=== PATIENT | female | born 1930 | race Caucasian/White ===

== ENCOUNTER 2016-06-27 13:37 | Inpatient (IN) | payer MEDICARE, OTHER ==
[~2016-06-27] VITALS: Ht 154.9 cm; Wt 45.8 kg
[2016-06-27] VITALS (31 sets, daily range): BP systolic 66–147; BP diastolic 32–135
[~2016-06-27 13:37] MED LIST: ACETAMINOP650 MG/20. PO; AMBIEN10 MG PO; AMOXIL250 MG/5 M GT; ASPIR 8181 MG ORAL; ASPIRIN325 M1 PO; ATORVASTATIN CA20 MG ORAL; BENAZEPRIL HCL10 MG PO; BENAZEPRIL HCL40 MG ORAL; COLACE100 MG PO; COREG12.5 MG ORAL; CRESTOR10 M1 ORAL; CRESTOR10 MG PO; LEVOTHYROXINE125 MCG ORAL; LEVOTHYROXINE150 MCG ORAL; LIDODERM700 MG TP; LIPITOR20 MG ORAL; LOTENSIN20 MG ORAL; MEGACE ORA400 MG/10 ORAL; MEGACE ORA400 MG/10 PO; METOPROLOL TART25 MG ORAL; MILK OF MA400 MG/5 M PO; MULTIVITAMINS1 EAC2 ORAL; PLAVIX75 MG PO; Piperacillin/Tazobactam 3.375 GM in NS 110 ML IVPB ONE; RANITIDINE HCL150 MG PO; REMERON15 M1 ORAL; SENOKOT1 TAB PO; SYNTHROID112 MCG PO; SYNTHROID88 MCG PO; TOPROL XL25 MG PO; TRAMADOL HCL50 MG PO; TYLENOL650 MG/20. RECTAL; Vancomycin 1 GM in NS 275 ML IVPB ONE; ZANTAC150 MG ORAL; ZOFRAN4 M1 ORAL; Zosyn 3.375gm inj ONE; [UNRECOGNIZED DRUG - REMARK]; aspirin; synthroid
[2016-06-27] MEDS ORDERED: Levophed 4mg/4mL Inj IV ONE ×2 (13:56→15:50)
[2016-06-27] MEDS ORDERED: Vancomycin 1gm inj IVPB ONE (14:12)
[2016-06-27] MEDS ORDERED: Lidocaine 1% MPF 10mg/ml 5ml ONE (14:20)
[2016-06-27 14:35] LABS: MEAN CORPUSCULAR HEMOGLOBIN 29.8 PG (27.0-31.0); MEAN CORPUSCULAR HGB CONC 31.4 G/DL (32.0-36.0); MEAN CORPUSCULAR VOLUME 95 FL (80-99); MEAN PLATELET VOLUME 10.6 FL (6.5-10.1); PLATELET COUNT 266 K/UL (150-450); RED BLOOD COUNT 4.57 M/UL (4.20-5.40); RED CELL DISTRIBUTION WIDTH 15.2 % (11.6-14.8)
[2016-06-27 14:36] LABS: WHITE BLOOD COUNT 22.6 K/UL (4.8-10.8)
--- NOTE | 2016-06-27 14:39 | Emergency Room Report ---
History of Present Illness General Chief Complaint: Dyspnea/Respdistress Source: Patient, EMS Present Illness HPI 85 YOF BIBEMS from SNF for hypoxia and hypotension. Patient aphasic at baseline. No diff in mental status as per SNF. EMS unable to get IV access. Moderate improvement with NRB O2. Patient has paperwork that states DNI but would allow cardiopulmonary resuscitation including CPR. No other info from EMS. No family member to provide additional info at this time. Allergies: Coded Allergies: No Known Allergies (Unverified , 04/18/12) Patient History Limited by: medical condition Past Medical History: unable to obtain Past Surgical History: unable to obtain Pertinent Family History: unable to obtain Now: No Immunizations: UTD Reviewed Nursing Documentation: PSxH: Agreed Nursing Documentation-PMH Hx Cardiac Problems: Yes - SD CHF CAD Hx Hypertension: Yes Hx Cancer: No Hx Gastrointestinal Problems: No Hx Neurological Problems: Yes Hx Dementia: Yes Hx Weakness: Yes Review of Systems All Other Systems: limited - Patient nonverbal at baseline Physical Exam Vital Signs Date Time Temp Pulse Resp B/P Pulse Ox O2 Delivery O2 Flow Rate FiO2 06/27/16 13:21 80 24 70/50 85 Non-Rebreather 15.0 Sp02 EP Interpretation: abnormal General Appearance: severe distress, lethargic Head: normocephalic, atraumatic Eyes: bilateral eye EOMI, bilateral eye PERRL ENT: normal ENT inspection, TMs + canals normal, uvula midline Neck: normal inspection, full range of motion, supple, no meningismus, no bony tend Respiratory: normal inspection, lungs clear, normal breath sounds, no rhonchi, no respiratory distress, no retraction, no accessory muscle use, no wheezing Cardiovascular #1: regular rate, rhythm, no edema, tachycardia Gastrointestinal: normal inspection, normal bowel sounds, non tender, soft, no guarding, no hernia Genitourinary: no CVA tenderness Musculoskeletal: normal inspection, back normal, normal range of motion, Rodrigo' s Sign negative Neurologic: normal inspection, alert, responsive, creative arts therapist III-XII nml as tested, other - Bilateral contracted upper/lower extremities Skin: no rash Procedures Critical Care Time Critical Care Time Sepsis 45 minutes Care for 85 YO F with hypoxemia, hypotension. Hypothermia Patient is DNI but NOT DNR Patient not providing history. DDx includes sepsis, PNA, CHF Care included sepsis order set for labs, 30cc/kg fluid resuscitation, initiation of IV antibiotics, tylenol PRN fever, rewarming Care included administration of vasopressors started to support failing circulatory system; includes frequent re-exam, interpretation of lab studies and consultation with hospitalist/configuration developer. 45 minutes of critical care time was spent with this patient not including time spent performing separately reportable procedures. Central Line Central Line : Consent: Emergent Central Line Lumen: triple Maximal Sterile Barrier Tech: yes cap, yes mask, yes sterile gown, yes sterile gloves, yes large sterile sheet, yes hand hygiene, yes chlorhexidine prep No Max Barrier Tech Because: emergency insertion Central Line Postion: internal jugular (R) Anesthesia: Lidocaine Complications: none Central Line Post Position: sutured, good blood return, position confirmed w / CXR Attempts: One Patient Tolerated: Well Complications: None Medical Decision Making Medicare Attestation I Paramjit Linton MD hereby attest that the medical record entry for date of service, 05/18/16 accurately reflects signatures/notations that I made in my capacity as MD when I treated/diagnosed the above listed Medicare beneficiary. I attest that this information is true, accurate and complete to the best of my knowledge. I understand that any falsification, omission, or concealment of material fact may subject me to administrative, civil, or criminal liability. This patient warrants hospital admission for extreme of age and has a condition that cannot be treated as outpatient. Diagnostic Impression: Primary Impression: Respiratory distress Additional Impressions: Sepsis Qualified Codes: A41.9 - Sepsis, unspecified organism Hypokalemia Hypocalcemia MARCELLE (acute kidney injury) Hypotension Qualified Codes: I95.9 - Hypotension, unspecified Respiratory failure Qualified Codes: J96.90 - Respiratory failure, unspecified, unspecified whether with hypoxia or hypercapnia Hypothermia Qualified Codes: T68.XXXA - Hypothermia, initial encounter ER Course 85 YO F with hypoxemia, hypotension. Tachycardia. Hypothermic. Labs: Leuks very elevated. Lactate 3.1. K 2.7. Creat 2.6. Ca 5.4 Troponin 0. - Respiratory failure. Patient is DNI. Placed on high FIO2 bipap - Presumed sepsis. Empiric Abx, IVF given - Hypothermia: Patient being rewarmed in ED - HypoK and HypoCa repleted - Hypotension: No response to IVF. Central line placed. Patient now on levophed and Dopamine pressors to maintain MAP. - Endorsed to Dr Corbett at 305pm EKG Diagnostic Results Rate: normal Rhythm: NSR ST Segments: no acute changes ASA given to the pt in ED: No Rhythm Strip Diag. Results EP Interpretation: yes Rate: 88. Rhythm: NSR, no PVC's, no ectopy Chest X-Ray Diagnostic Results EP Interpretation: Yes Findings: no consolidation, no effusion, no pneumothorax, no acute cardiopulmonary disease, other - Central venous line is in place in right atrium Number of Views: 1 Last Vital Signs Date Time Temp Pulse Resp B/P Pulse Ox O2 Delivery O2 Flow Rate FiO2 06/27/16 13:21 80 24 70/50 85 Non-Rebreather 15.0 Status: improved Disposition: ADMITTED INPATIENT Condition: Critical Referrals: NON PHYSICIAN (PCP) PARAMJIT LINTON M.D. Jun 27, 2016 14:39
[2016-06-27 14:46] LABS: TROPONIN I < 0.30 ng/mL (<=0.30)
[2016-06-27 14:48] LABS: ALANINE AMINOTRANSFERASE 5 U/L (3-33); ALBUMIN/GLOBULIN RATIO 0.5 (1.0-2.7); ANION GAP 21 (5-15); ASPARTATE AMINO TRANSFERASE 10 U/L (5-40); CHLORIDE 128 mEQ/L (98-107); CREATININE 2.6 mg/dL (0.5-0.9); HEMOLYSIS 20; SODIUM 157 mEQ/L (135-145); TOTAL PROTEIN 4.7 g/dL (6.6-8.7)
[2016-06-27 14:58] LABS: POTASSIUM 2.7 mEQ/L (3.4-4.9)
[2016-06-27 14:59] LABS: CALCIUM 5.4 mg/dL (8.6-10.2); CARBON DIOXIDE 8 mEQ/L (20-30); CKMB 4.7 ng/mL (< 3.8)
[2016-06-27 15:03] LABS: REFLEX LACTIC ACID YES OR NO YES
[2016-06-27] MEDS ORDERED: DOPamine 400mg/250ml 250 ML IV ONE (15:05)
[2016-06-27 15:15] LABS: BAND NEUTROPHILS % (MANUAL) 3 % (0-8); BASOPHILS % (MANUAL) 0 % (0-2); EOSINOPHILS % (MANUAL) 0 % (0-3); LYMPHOCYTES % (MANUAL) 24 % (20-45); NEUTROPHILS % (MANUAL) 71 % (45-75); PLATELET ESTIMATE ADEQUATE; PLATELET MORPHOLOGY NORMAL; TOTAL CELLS COUNTED 100
[2016-06-27] MEDS ORDERED: Calcium Gluconate 10% 2 GM in NS 110 ML IVPB ONE (15:15)
[2016-06-27] MEDS ORDERED: DOPamine 400mg/250ml 250 ML IV SCH ×2 (15:15→19:00)
[2016-06-27 15:25] LABS: APPEARANCE,URINE TURBID; KETONES,URINE NEGATIVE (NEGATIVE); LEUKOCYTE ESTERASE ,URINE 3+ (NEGATIVE); NITRITE,URINE POSITIVE (NEGATIVE); PH,URINE 6 (4.5-8.0); PROTEIN,URINE 4+ (NEGATIVE); UROBILINOGEN,URINE NORMAL MG/DL (0.0-1.0)
[2016-06-27 15:27] LABS: RBC,URINE TNTC /HPF (0 - 2); WBC,URINE 15-20 /HPF (0 - 2)
[2016-06-27 15:28] LABS: BACTERIA,URINE MODERATE /HPF; SQUAMOUS EPITHELIAL CELL,UR FEW /LPF (NONE/OCC)
[2016-06-27] MEDS ORDERED: Calcium Gluconate 1gm/10ml vial ONE ×2 (15:28→15:29)
[2016-06-27] MEDS ORDERED: NORCO 5-325 TA1 EAC1 ORAL (16:10)
[2016-06-27] MEDS ORDERED: CRANBERRY450 M4 PO (16:10)
[2016-06-27] MEDS ORDERED: MULTI-DELYN237 ML ORAL (16:10)
[2016-06-27] MEDS ORDERED: VITAMIN D1000 UNI1 ORAL (16:11)
[2016-06-27] MEDS ORDERED: Acetaminophen 650mg/20.3ml NG PRN (18:45)
[2016-06-27] MEDS ORDERED: Norco 5mg/325mg tab ORAL PRN (18:45)
[2016-06-27] MEDS ORDERED: Atorvastatin 20mg tab ORAL SCH (21:00)
[2016-06-27] MEDS ORDERED: Pantoprazole Inj IVP SCH (21:00)
[2016-06-27] MEDS: Piperacillin/Tazobactam 3.375 GM in D5W 110 ML IVPB SCH (21:09)
[2016-06-27] MEDS: Heparin 5000 units/ml inj SUBQ SCH (21:11)
[2016-06-27 22:37] LABS: ABG ALLEN TEST POSITIVE; ABG BASE EXCESS -12.4; ABG PCO2 18.4 mmHg (35.0-45.0)
[2016-06-28] VITALS (87 sets, daily range): BP systolic 68–138; BP diastolic 24–95
[2016-06-28] MEDS: 1/2NS w/KCl 20mEq 1000ml 1,000 ML IV SCH ×2 (00:32→06:42)
[2016-06-28 05:55] LABS: MEAN CORPUSCULAR HEMOGLOBIN 29.4 PG (27.0-31.0); MEAN CORPUSCULAR HGB CONC 31.5 G/DL (32.0-36.0); MEAN CORPUSCULAR VOLUME 94 FL (80-99); MEAN PLATELET VOLUME 11.1 FL (6.5-10.1); PLATELET COUNT 245 K/UL (150-450); RED BLOOD COUNT 4.42 M/UL (4.20-5.40)
[2016-06-28] MEDS: Levothyroxine 125mcg tab ORAL SCH ×2 (06:22→09:50)
[2016-06-28 06:23] LABS: WHITE BLOOD COUNT 32.4 K/UL (4.8-10.8)
[2016-06-28 07:07] LABS: TROPONIN I < 0.30 ng/mL (<=0.30)
[2016-06-28 07:10] LABS: ALANINE AMINOTRANSFERASE 14 U/L (3-33); ALBUMIN/GLOBULIN RATIO 0.7 (1.0-2.7); ANION GAP 25 (5-15); ASPARTATE AMINO TRANSFERASE 26 U/L (5-40); CALCIUM 9.8 mg/dL (8.6-10.2); CARBON DIOXIDE 12 mEQ/L (20-30); CHLORIDE 111 mEQ/L (98-107); CREATININE 4.6 mg/dL (0.5-0.9); HEMOLYSIS 3; POTASSIUM 5.2 mEQ/L (3.4-4.9); SODIUM 148 mEQ/L (135-145); THYROID STIMULATING HORMONE 0.095 uIU/mL (0.300-4.500); TOTAL PROTEIN 7.6 g/dL (6.6-8.7)
[2016-06-28 07:14] LABS: REFLEX LACTIC ACID YES OR NO YES
[2016-06-28] MEDS: DOPamine 400mg/250ml 250 ML IV SCH (07:50)
[2016-06-28] MEDS: Piperacillin/Tazobactam 3.375 GM in D5W 110 ML IVPB SCH (08:47)
[2016-06-28] MEDS ORDERED: Vancomycin 1gm/D5W 250ml IVPB ONE ×2 (09:00)
[2016-06-28] MEDS ORDERED: Megace 400mg/10ml Susp NG SCH (09:00)
[2016-06-28 09:17] LABS: ANISOCYTOSIS 1+; BAND NEUTROPHILS % (MANUAL) 9 % (0-8); BASOPHILS % (MANUAL) 0 % (0-2); EOSINOPHILS % (MANUAL) 0 % (0-3); HYPOCHROMASIA 1+; LYMPHOCYTES % (MANUAL) 25 % (20-45); NEUTROPHILS % (MANUAL) 60 % (45-75); PLATELET ESTIMATE ADEQUATE; PLATELET MORPHOLOGY NORMAL; TOTAL CELLS COUNTED 100
[2016-06-28] MEDS ORDERED: D5 1/2NS 1,000 ML IV SCH (09:45)
[2016-06-28] MEDS: Multivitamin 5ml Liquid ORAL SCH (09:50)
[2016-06-28] MEDS: Aspirin Baby 81mg ORAL SCH (09:50)
[2016-06-28] MEDS: Pantoprazole Inj IVP SCH (09:50)
[2016-06-28] MEDS: Heparin 5000 units/ml inj SUBQ SCH ×2 (09:55→20:48)
--- NOTE | 2016-06-28 10:15 | Diagnostic Imaging Report ---
Indications: Chest pain Technique: Portable AP chest Findings: Comparison: 07/03/2015 Central venous catheter has been placed via right internal jugular vein, tip at level of SVC/right atrial junction. No pneumothorax, apical pleural cap, or mediastinal widening. Defibrillator patch overlies cardiac silhouette, limiting evaluation. Heart size, pulmonary vasculature remain within normal limits. Lungs, pleura remain grossly clear. Aortic arch calcification, diffuse osteopenia again noted. IMPRESSION: No evidence of acute cardiopulmonary disease, limited as described Central venous catheter placement, in good position; no evidence of acute complication Stable chronic changes as described
[2016-06-28] MEDS ORDERED: Sodium Bicarbonate 50 ML in D5 1/2NS 1,000 ML IV SCH (11:00)
[2016-06-28 13:28] LABS: ABG ALLEN TEST POSITIVE; ABG BASE EXCESS -13.4
[2016-06-28 13:49] LABS: CREATININE, RANDOM URINE 62.5 mg/dL
[2016-06-28] MEDS: Sodium Bicarbonate 50 ML in D5 1/2NS 1,000 ML IV SCH ×3 (13:54→21:20)
[2016-06-28] MEDS ORDERED: Ertapenem 1 GM in NS 110 ML IVPB SCH (18:00)
--- NOTE | 2016-06-28 19:47 | Cardiology Report ---
APPROVED REPORT EKG Measurement Heart [id number] [place] [id number] Normal sinus rhythm Left axis deviation Low voltage QRS Abnormal ECG
--- NOTE | 2016-06-28 21:37 | Consultation ---
DATE OF CONSULTATION: 06/27/2016 CARDIOLOGY CONSULTATION CONSULTING PHYSICIAN: Yohan Corbett M.D. REQUESTING PHYSICIAN: Dimitri Gore M.D. REASON FOR CONSULTATION: Hypotension. HISTORY OF PRESENT ILLNESS: This is an 85-year-old white female. She [facility]. She has a history of ischemic heart disease and prior myocardial infarction with systolic dysfunction. The patient became increasingly withdrawn, lethargic, aphasic, and hypotensive in the senior living, prompting 911 transfer to this emergency room. She was notably hypoxic. Central venous access was ultimately obtained. Hypotension was treated with fluid resuscitation initially, but did not improve and pressors were initiated. PAST MEDICAL HISTORY: 1. Coronary artery disease. 2. History of myocardial infarction. 3. History of congestive heart failure. 4. Hypertension. 5. Hypothyroidism. 6. Hard of hearing. 7. Degenerative disk disease with compression fractures. 8. Osteoporosis. 9. Osteoarthritis. 10. Urinary incontinence. 11. Hyperlipidemia. ALLERGIES: None known. MEDICATIONS: Prior to admission, reviewed and reconciled. SOCIAL HISTORY: Negative for smoking, alcohol, or substance abuse. FAMILY HISTORY: Notable for hypothyroidism. REVIEW OF SYSTEMS: No fevers or chills. She did receive a flu vaccination this year. 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 She is on thyroid replacement. There is no history of kidney disorder. There is no history of diabetes. She has been on anti-lipid drugs. She had a myocardial infarction four to five years ago with a stent placed to the LAD. She does have significant left ventricular systolic dysfunction with ejection fraction by recent echocardiogram at approximately 30%. There is no history of cardiac arrhythmias. There is no history of asthma or blood clots in the legs. She is extremely hard of hearing. PHYSICAL EXAMINATION: VITAL SIGNS: Blood pressure is 82/40, heart rate 80, respiratory rate 24, the patient is afebrile, and oxygen saturation on a non-rebreather mask with 85%. Temperature is 95.0 degrees. CHEST: Bilateral breath sounds with rhonchi. HEENT: Dry mucous membranes. Conjunctivae are pink. Sclerae are anicteric. CARDIAC: Regular. Normal S1 and S2 with a fourth heart sound. Triple lumen catheter site is noted in the right IJ. No bleeding there. EXTREMITIES: Revealed decreased capillary refill and no edema. ABDOMEN: Soft and nontender. LABORATORY AND DIAGNOSTIC DATA: Lactate is 3.1. EKG sinus rhythm with septal infarction of indeterminate age. Chest x-ray, no acute process. Chemistry, sodium is 157, potassium 3.7, chloride 128, bicarbonate 8, BUN 55, creatinine 2.6, and calcium 5.4. Albumin is 1.7. Troponin is negative. White count is 22.6 and hemoglobin 13.6. IMPRESSION: 1. Systemic inflammatory response syndrome. 2. Severe sepsis with shock. 3. Probable urinary tract infection. 4. Possible aspiration pneumonia. 5. Hypothermia. 6. Severe dehydration. 7. Hypernatremia. 8. Hypovolemia. 9. Hypokalemia. 10. Acute renal failure. 11. Lactic acidosis. 12. Metabolic acidosis. 13. Severe protein-calorie malnutrition. 14. Ischemic cardiomyopathy with history of myocardial infarction and coronary stent. 15. Chronic systolic congestive heart failure. 16. History of hypothyroidism. PLAN: 1. ICU monitoring. 2. BiPAP support. 3. Volume resuscitation with hypotonic fluids. 4. Check metabolic profile. 5. Follow up lactic acid levels and chemistry panel. 6. Replace potassium. 7. Check magnesium. 8. Hold statin drug. 9. Broad spectrum antibiotics. 10. Deep venous thrombosis prophylaxis. 11. Taper off pressors as clinical condition permits. 12. Condition is critical and prognosis is guarded. Charleen Osborn JOB#: [id number] CC:
[2016-06-29] VITALS (94 sets, daily range): BP systolic 59–165; BP diastolic 30–95
--- NOTE | 2016-06-29 00:08 | History and Physical Report ---
DATE OF ADMISSION: 06/27/2016 CHIEF COMPLAINT: Septic shock, acute renal failure, respiratory failure. HISTORY OF PRESENT ILLNESS: The patient is an 85-year-old female. She has a history of ischemic cardiomyopathy, hypothyroidism, dementia. She presented from care home facility with complaints of shortness of breath. On evaluation in the emergency room, the patient was hypotensive. She was placed on pressors. She is short of breath and placed on BiPAP. She had acute renal failure. She had evidence of pneumonia as well as urine infection. The patient has been started on broad-spectrum IV antibiotics. She has been pancultured and is now admitted for further evaluation and care. She is a DNR. She currently is unable to provide any history as she is confused. PAST MEDICAL HISTORY: As above. PAST SURGICAL HISTORY: None. CURRENT MEDICATIONS: Reconciled and reviewed. ALLERGIES: None. FAMILY HISTORY: None. SOCIAL HISTORY: Negative for tobacco, ethanol, or drugs. REVIEW OF SYSTEMS: Unobtainable as the patient is confused. PHYSICAL EXAMINATION: VITAL SIGNS: Temperature 97.9, blood pressure 105/78, pulse 117, respirations 20. GENERAL: The patient is a chronically ill-appearing female. She is arousable on BiPAP. NECK: Supple. HEART: Tachycardic. LUNGS: Clear anteriorly. ABDOMEN: Soft, nontender, and nondistended. EXTREMITIES: Without clubbing cyanosis, or edema. LABORATORY DATA: White count 00107, hemoglobin 13, hematocrit 43, platelets 266,000. ABG showed a pH of 7.367, pCO2 pO2 552, bicarb 10, O2 saturation 99%. Sodium 157, potassium 2.7, chloride 128, bicarbonate 8, BUN 55, and creatinine was 2.6. Troponin was negative. ASSESSMENT: This is an unfortunate female admitted with respiratory failure, sepsis, shock, and acute renal failure. 1. Shock. 2. Sepsis. 3. Urinary tract infection. 4. Respiratory failure. 5. Pneumonia. 6. Acute renal failure. 7. Hypothyroidism. 8. Ischemic cardiomyopathy. PLAN: 1. Continue pressors. 2. Aggressive fluid resuscitation with bicarb. 3. Check renal ultrasound. 4. Followup cultures. 5. Broad-spectrum IV antibiotic therapy. 6. Cardiology and Infectious Diseases consultation will be obtained. 7. The patient's status currently critical and guarded. She is DNR. Dimitri Gore M.D. DR: Belinda JOB#: [id number] CC:
--- NOTE | 2016-06-29 01:07 | Consultation ---
DATE OF CONSULTATION: 06/28/2016 INFECTIOUS DISEASE CONSULTATION This consult is for coverage of Dr. Torres. PRIMARY ATTENDING PHYSICIAN: Dimitri Gore M.D. REASON FOR CONSULT: Sepsis, septic shock, and UTI. HISTORY OF PRESENT ILLNESS: The patient is an 85-year-old white female admitted yesterday from a [facility] facility. The patient developed hypoxemia, hypertension, and hypothermia in this facility. There was no IV access. After admission, the patient had central line placement. She was found to have leukocytosis, acute renal failure, and was in shock. The patient is started on Levophed. Currently, she is in ICU, nonresponding. She was put on BiPAP. PAST MEDICAL HISTORY: Significant for hypertension, dementia, hypothyroidism, coronary artery disease, history of [place], systolic CHF, osteoporosis, and anemia. MEDICATIONS: Dopamine, aspirin, multivitamin, Protonix, sodium bicarbonate, levothyroxine, Zosyn, dose of vancomycin, heparin, norepinephrine, and [place]. ALLERGIES: No known drug allergy. SOCIAL HISTORY: alf resident. The patient's code status is DNI. No history of alcohol, drug abuse, or smoking. REVIEW OF SYSTEMS: Unobtainable. The patient is unresponsive. PHYSICAL EXAMINATION: VITAL SIGNS: Pulse 85 and blood pressure 102/75. HEAD AND NECK: The patient is on BiPAP. She has pink conjunctiva. HEART: Normal rate. She has right subclavian central line. LUNGS: The patient is on BiPAP, decreased expansion and sound. ABDOMEN: Soft. EXTREMITIES: She has no edema. LABORATORY AND DIAGNOSTIC DATA: WBC 32.4, hemoglobin 13, hematocrit 41.4, and platelets 245,000. Sodium 148, potassium 4.2, chloride 111, bicarbonate 25, BUN 84, creatinine 4.6, and magnesium 3.7. TSH is low 0.095. Urine culture grows gram-negative rods. Chest x-ray was negative. IMPRESSION: 1. Sepsis with septic shock. 2. Urinary tract infection. 3. Hypoxic respiratory failure. 4. Acute renal failure. 5. Hyperkalemia. 6. Hypothyroidism. 7. Advanced dementia. 8. Systolic congestive heart failure by history. 9. Osteoporosis. RECOMMENDATION: We will continue with vancomycin and Zosyn. We will follow up the cultures. At the end of my exam, I thank Dr. Gore for involving me in the care of this patient. Jax Walsh M.D. DR: Demarco JOB#: [id number] CC: SAMIA
[2016-06-29] MEDS: Sodium Bicarbonate 50 ML in D5 1/2NS 1,000 ML IV SCH ×3 (01:24→09:47)
--- NOTE | 2016-06-29 01:37 | Progress Note ---
DATE: 06/28/2016 CARDIOLOGY PROGRESS NOTE SUBJECTIVE: The patient remains in the intensive care unit. Condition remains critical with guarded prognosis. The case was discussed with her sister Eh. OBJECTIVE: GENERAL: The patient is alert, but poorly responsive. She is very hard of hearing. She remains on pressor support with dopamine and Levophed. VITAL SIGNS: Blood pressure 104/55, heart rate 84, respiratory rate 19. She is on BiPAP support and temperature is 99.1. HEENT: Temporal wasting. Pale conjunctivae. Dry mucous membranes. NECK: Supple. LUNGS: With coarse breath sounds. CARDIAC: Regular rhythm and rate. Normal S1 and S2 with a 1/6 systolic apical murmur. ABDOMEN: Soft and nontender. EXTREMITIES: Revealed no edema. SKIN: Skin changes as pictured in the chart. LABORATORY DATA: Sodium 148, potassium 5.2, bicarbonate 12, BUN 84, AND creatinine 4.6. Magnesium 2.7. Lactic acid has decreased to 1.2. Troponin negative. Albumin 3.2. White count 32.4 and hemoglobin 13. ABG, 7.37, 17, and 175. IMPRESSION: 1. Systemic inflammatory response syndrome. 2. Sepsis with shock. 3. Urinary tract infection. 4. Lactic acidosis, resolving. 5. Severe leukocytosis. 6. Ischemic cardiomyopathy. 7. Acute renal failure. 8. Dehydration. 9. Hypernatremia. 10. Hyperchloremia. 11. Hypokalemia, recovered. PLAN: Hypotonic hydration. Broad-spectrum antibiotics. Pending final cultures. DVT and stress ulcer prophylaxis. Taper off pressors. Do Not Intubate. However, sister wants other interventions to remain at current intensity of care. Yohan Corbett M.D. DR: PARKER JOB#: [id number] CC:
--- NOTE | 2016-06-29 02:47 | Consultation ---
DATE OF CONSULTATION: 06/28/2016 PULMONARY CONSULTATION: CONSULTING PHYSICIAN: Fabiano Parra M.D. REFERRING PHYSICIAN: Dimitri Gore M.D. REASON FOR CONSULTATION: Respiratory failure, BiPAP management. HISTORY: This is an 85-year-old female, brought in by ambulance from skilled facility for hypoxemia and hypotension. The patient unable to give much in the way of history. The patient is seen in the emergency room, was placed on non-rebreather. The patient current is a do not intubate; however, the patient was doing poorly and requiring BiPAP. She was also noted to have significant metabolic acidosis and was not compensating adequately. The patient was admitted with diagnosis of sepsis. She was started on intravenous antibiotics and BiPAP management. I was called to assist and evaluate further. The patient's care discussed and reviewed and the ICU care reviewed as well in detail. The patient's past medical history is notable for [place], congestive heart failure, CAD, history of asthma or chronic obstructive pulmonary disease. She has a history of dementia, diffuse weakness, and possible prior history of stroke. The patient's medications reviewed in detail. ALLERGIES: Reviewed. REVIEW OF SYSTEMS: Otherwise reviewed. PHYSICAL EXAMINATION: GENERAL: A well-developed female, appears to be chronically ill. Very labile. VITAL SIGNS: Blood pressure 116/75, 100% sat on BiPAP with 30% FiO2, pulse rate 95, respiratory rate 16, and temperature 97.9. HEENT: Fairly negative. Pupils are sluggish. BiPAP in place. NECK: Supple. No jugular venous distention. LUNGS: With coarse breath sounds. Moderate air entry. CARDIAC: S1 and S2. Intermittently tachycardic without murmurs, rubs, or gallops. ABDOMEN: Soft, nontender, and nondistended. EXTREMITIES: No cyanosis or clubbing. No edema. NEUROLOGICAL: Grossly nonfocal. The patient, however, is very contracted. Difficult to fully assess. The patient is withdrawn at this time. LABORATORY DATA: ABG shows pH of 7.36, pCO2 18, pO2 is 552, bicarbonate was 10. Chemistry this morning sodium 148, potassium 5.2, BUN 84, creatinine 4.6, lactic acid 3.1. The patient's CBC with a white cell count of 32, hemoglobin 13, hematocrit 41, and platelets of 245,000. The prior laboratories showed bicarbonate was only 8, now improved to 12. The x-ray showed no clear infiltrate overall. IMPRESSION: Respiratory failure, mostly due to metabolic acidosis, presumed sepsis, hypothermia, hypotension, history of dementia, history congestive heart failure, history of coronary artery disease, history of hypertension, possible acute on chronic renal failure, significant lactic acidemia, protein-calorie malnutrition, and profound leukocytosis. RECOMMENDATION: At present agree with management of BiPAP for now. Follow up bicarbonate level, aggressive intravenous hydration pressors as needed. IV antibiotics and follow cultures, DVT prophylaxis, and monitor clinically, nutritional support, follow with caution. We will follow clinically for further change in intervention and ongoing recommendations. The patient is guarded and critical, requiring acute care. We will order arterial blood gases and chest x-ray for the a.m. and subsequent weaning, but likely will occur only when bicarbonate improves. Fabiano Parra M.D. DR: LIZETTE JOB#: [id number] CC:
--- NOTE | 2016-06-29 04:58 | Consultation ---
DATE OF CONSULTATION: 06/28/2016 NEPHROLOGY CONSULTATION: REFERRING PHYSICIAN: Dimitri Gore M.D. REASON FOR CONSULTATION: Acute kidney injury. HISTORY OF PRESENT ILLNESS: The patient is an 85-year-old lady, a resident of an [facility], who presents with respiratory distress and acute renal failure. She had a BUN and creatinine done recently in the [facility] with a BUN of 27 and creatinine 0.79 on 02/03/2016. The patient cannot give any history. She has severe dementia and aphasia. There is a history of coronary disease, prior myocardial infarction, CHF with systolic and diastolic dysfunction, osteoporosis, osteoarthritis, hypothyroidism, compression fractures, chronic anemia, and protein calorie malnutrition. HABITS: Apparently, she is a nonsmoker and nondrinker. REVIEW OF SYSTEMS: The patient is unable. MEDICATIONS: From the [facility] as follows, Tylenol, aspirin, atorvastatin, benazepril, ranitidine, cranberry, Prostat, multivitamins with minerals, Megace, carvedilol, mirtazapine, vitamin D, and levothyroxine. PHYSICAL EXAMINATION: GENERAL: The patient is seen in the intensive care unit. She is on BiPAP. VITAL SIGNS: Temperature 99 degrees, pulse 92, respirations 30, blood pressure 105/45. HEENT: She has an oxygen mask and could not examine well. She is in a position. LUNGS: Distant breath sounds. HEART: Regular rhythm and tachycardic. ABDOMEN: Soft. Without organomegaly. EXTREMITIES: She is in position with contractures of the knees. No edema. There is some severe muscle wasting. NEUROLOGIC: The patient is obtunded. LABORATORY DATA: Pertinent laboratories on 06/27/2015, BUN 55, creatinine 2.6, sodium 157, potassium 2.7, chloride 128, and CO2 is 8 with a glucose of 61. Lactic acid of 3.1. Troponin less than 0.30. Albumin 1.7. Today BUN is elevated at 84, creatinine 4.6, sodium 148, potassium is 5.2. Repeat troponin normal. Lactic acid down to 1.2. TSH is low. Urine shows 15 to 20 white cells per high-power field, too numerous to count red cells, and 4+ protein. Chest x-ray is negative. IMPRESSION: The patient presents with sepsis, dehydration, acute renal failure. Electrolyte abnormalities. Her condition is critical. At this point, there is likely a large prerenal component. We will give her large volumes of IV fluids and observe her response. She likely has pyelonephritis and urosepsis and needs broad-spectrum antibiotics. Her underlying malnutrition makes her a poor candidate for rehabilitation and her condition is critical. Intensive care unit orders have been reviewed and updated and intravenous fluids adjusted. Thank you so much. Brian Sidhu M.D. DR: Felisha JOB#: [id number] CC:
[2016-06-29 06:56] LABS: ALANINE AMINOTRANSFERASE 11 U/L (3-33); ALBUMIN/GLOBULIN RATIO 0.6 (1.0-2.7); ANION GAP 18 (5-15); ASPARTATE AMINO TRANSFERASE 23 U/L (5-40); CARBON DIOXIDE 19 mEQ/L (20-30); CHLORIDE 110 mEQ/L (98-107); CREATININE 2.7 mg/dL (0.5-0.9); HEMOLYSIS 5; POTASSIUM 3.3 mEQ/L (3.4-4.9); SODIUM 147 mEQ/L (135-145); TOTAL PROTEIN 5.8 g/dL (6.6-8.7)
[2016-06-29 07:20] LABS: URIC ACID 7.5 mg/dL (3.0-7.5)
--- NOTE | 2016-06-29 09:08 | Critical Care Progress Note ---
Assessment/Plan Assessment/Plan IMPRESSION: Respiratory failure, mostly due to metabolic acidosis, presumed sepsis, hypothermia, hypotension, history of dementia, history congestive heart failure, history of coronary artery disease, history of hypertension, possible acute on chronic renal failure, significant lactic acidemia, protein-calorie malnutrition, and profound leukocytosis. PLAN BIPAP PRN still needed concern as unable to maintain higher RR for low bicarb levels IV antibiotics check cultures maintain blood pressure support clinically ICU care needed discussed with all close follow up on all parameters medications/laboratory data/nursing notes/ICU care reviewed in detail note reviewed and edited care discussed with RN and RT ICU time spent 35 minutes Critical Care - Subjective Interval Events: still significantly acidotic all events reviewed and discussed in detail Condition: critical EKG Rhythm: Sinus Rhythm Residuals: minimal Tube Feeding Tolerated: yes I&O: Intake and Output 06/28/16 06/29/16 19:00 07:00 Intake Total 3084.72 ml 3014.36 ml Output Total 561 ml 1210 ml Balance 2523.72 ml 1804.36 ml Intake Oral 40 ml IV Total 3044.72 ml 3014.36 ml Output Urine Total 560 ml 1210 ml Stool Total 1 ml # Bowel Movements 1 4 Critical Care - Objective CXR: negative ET-Tube: 8.0 ET Position: 24 Last 24 Hour Vital Signs Date Time Temp Pulse Resp B/P Pulse Ox O2 Delivery O2 Flow Rate FiO2 06/29/16 07:15 80 23 100 Full Face 30 06/29/16 07:00 91 20 93/36 100 Bi-pap 30 06/29/16 06:45 90 20 90/36 100 Bi-pap 30 06/29/16 06:34 80 06/29/16 06:30 88 20 93/39 100 Bi-pap 30 06/29/16 06:15 88 20 93/39 100 Bi-pap 30 06/29/16 06:00 80 20 98/39 100 Bi-pap 30 06/29/16 05:45 94 20 94/46 100 Bi-pap 30 06/29/16 05:30 98 20 100/59 100 Bi-pap 30 06/29/16 05:15 98 20 97/59 100 Bi-pap 30 06/29/16 05:00 114 17 71/46 100 Bi-pap 30 06/29/16 04:54 94 18 100 Full Face 30 06/29/16 04:45 96 17 100/72 100 Bi-pap 30 06/29/16 04:30 83 17 108/72 100 Bi-pap 30 06/29/16 04:15 88 15 146/81 100 Bi-pap 30 06/29/16 04:00 97.4 76 16 114/95 100 Bi-pap 30 06/29/16 04:00 30 06/29/16 03:45 86 16 131/86 100 Bi-pap 30 06/29/16 03:30 86 16 113/86 100 Bi-pap 30 06/29/16 03:15 88 16 120/88 100 Bi-pap 30 06/29/16 03:12 88 18 100 Full Face 30 06/29/16 03:00 73 16 130/88 100 Bi-pap 30 06/29/16 02:30 82 16 136/78 100 Bi-pap 30 06/29/16 02:15 84 16 128/83 100 Bi-pap 30 06/29/16 02:00 84 20 140/72 100 Bi-pap 30 06/29/16 01:45 82 20 105/74 100 Bi-pap 30 06/29/16 01:30 82 16 97/83 100 Bi-pap 30 06/29/16 01:15 76 16 124/80 100 Bi-pap 30 06/29/16 01:00 94 16 145/69 100 Bi-pap 30 06/29/16 00:57 72/51 06/29/16 00:50 97 21 100 Full Face 30 06/29/16 00:45 100 16 59/35 100 Bi-pap 30 06/29/16 00:30 80 16 116/50 100 Bi-pap 30 06/29/16 00:15 73 16 118/51 100 Bi-pap 30 06/29/16 00:00 82 06/29/16 00:00 30 06/29/16 00:00 97.2 74 16 116/51 100 Bi-pap 30 06/28/16 23:30 74 16 111/55 100 Bi-pap 30 06/28/16 23:15 94 16 97/60 100 Bi-pap 30 06/28/16 23:00 72 14 102/46 100 Bi-pap 30 06/28/16 22:45 76 14 109/52 100 Bi-pap 30 06/28/16 22:44 69 15 100 Full Face 30 06/28/16 22:30 71 18 72/55 100 Bi-pap 30 06/28/16 22:30 72/55 06/28/16 22:15 75 18 90/63 100 Bi-pap 30 06/28/16 22:00 76 20 91/63 100 Bi-pap 30 06/28/16 22:00 101/56 06/28/16 21:45 95 19 120/75 100 Bi-pap 30 06/28/16 21:30 93 19 123/77 100 Bi-pap 30 06/28/16 21:15 89 20 121/73 100 Bi-pap 30 06/28/16 21:10 94 17 100 Full Face 30 06/28/16 21:00 109/70 06/28/16 21:00 84 22 109/70 100 Bi-pap 30 06/28/16 20:45 88 19 123/65 100 Bi-pap 30 06/28/16 20:30 83 22 118/67 100 Bi-pap 30 06/28/16 20:15 82 23 120/62 100 Bi-pap 30 06/28/16 20:00 30 06/28/16 20:00 82 06/28/16 20:00 124/26 06/28/16 20:00 82 19 124/56 100 Bi-pap 30 06/28/16 19:30 92 22 100 Full Face 30 06/28/16 19:30 97.0 88 15 111/81 97 Bi-pap 30 06/28/16 19:00 90 10 121/64 97 Bi-pap 30 06/28/16 19:00 121/64 06/28/16 18:45 80 16 128/76 100 Bi-pap 30 06/28/16 18:30 88 14 124/75 100 Bi-pap 30 06/28/16 18:15 92 19 107/53 98 Bi-pap 30 06/28/16 18:00 88 14 107/68 98 Bi-pap 30 06/28/16 18:00 102/53 06/28/16 17:45 88 13 102/53 100 Bi-pap 30 06/28/16 17:30 92 17 106/55 100 Bi-pap 30 06/28/16 17:15 84 14 101/52 100 Bi-pap 30 06/28/16 17:00 93 16 99/55 100 Bi-pap 30 06/28/16 17:00 99/55 06/28/16 16:45 75 19 102/40 100 Bi-pap 30 06/28/16 16:38 78 23 100 Facial 30 06/28/16 16:30 70 21 110/54 100 Bi-pap 30 06/28/16 16:15 84 19 104/55 100 Bi-pap 30 06/28/16 16:00 103 26 98/56 100 Bi-pap 30 06/28/16 16:00 30 06/28/16 16:00 93 06/28/16 16:00 99.1 90 19 107/85 100 Bi-pap 30 06/28/16 16:00 107/85 06/28/16 15:59 138/90 06/28/16 15:45 90 18 138/90 100 Bi-pap 30 06/28/16 15:30 91 16 114/86 100 Bi-pap 30 06/28/16 15:29 91 19 100 Facial 30 06/28/16 15:15 91 19 107/77 100 Bi-pap 30 06/28/16 15:00 133/75 06/28/16 15:00 90 17 133/74 100 Bi-pap 30 06/28/16 14:45 84 16 98/54 100 Bi-pap 30 06/28/16 14:30 95 18 128/81 100 Bi-pap 30 06/28/16 14:15 99 18 126/68 100 Bi-pap 30 06/28/16 14:00 83 17 96/64 100 Bi-pap 30 06/28/16 14:00 96/64 06/28/16 13:45 93 20 133/80 100 Bi-pap 30 06/28/16 13:30 92 19 106/52 100 Bi-pap 30 06/28/16 13:15 90 18 100/67 100 Bi-pap 30 06/28/16 13:10 93 21 100 Facial 30 06/28/16 13:00 95 22 112/75 100 Bi-pap 30 06/28/16 13:00 112/79 06/28/16 12:45 90 18 119/57 100 Bi-pap 30 06/28/16 12:30 92 14 94/56 100 Bi-pap 30 06/28/16 12:15 88 16 95/55 100 Bi-pap 30 06/28/16 12:06 85/55 06/28/16 12:00 99.0 92 16 105/45 100 Bi-pap 30 06/28/16 12:00 30 06/28/16 12:00 92 06/28/16 11:45 91 15 85/55 100 Bi-pap 30 06/28/16 11:30 88 14 99/59 100 Bi-pap 30 06/28/16 11:28 106 18 100 Facial 30 06/28/16 11:15 85 18 101/82 100 Bi-pap 30 06/28/16 11:00 130/48 06/28/16 11:00 86 14 130/47 100 Bi-pap 30 06/28/16 10:57 68/40 06/28/16 10:45 105 21 68/40 100 Bi-pap 30 06/28/16 10:30 118 25 78/49 100 Bi-pap 30 06/28/16 10:15 87 18 96/42 100 Bi-pap 30 06/28/16 10:00 102/75 06/28/16 10:00 85 15 102/75 100 Bi-pap 30 06/28/16 09:45 90 14 78/46 100 Bi-pap 30 06/28/16 09:30 100 15 105/69 100 Bi-pap 30 06/28/16 09:18 103 20 100 Facial 30 06/28/16 09:15 97 16 123/67 100 Bi-pap 30 Labs: Labs Test 06/27/16 13:40 06/27/16 14:35 06/27/16 15:00 06/27/16 22:25 White Blood Count 22.6 K/UL (4.8-10.8) Red Blood Count 4.57 M/UL (4.20-5.40) Hemoglobin 13.6 G/DL (12.0-16.0) Hematocrit 43.4 % (37.0-47.0) Mean Corpuscular Volume 95 FL (80-99) Mean Corpuscular Hemoglobin 29.8 PG (27.0-31.0) Mean Corpuscular Hemoglobin Concent 31.4 G/DL (32.0-36.0) Red Cell Distribution Width 15.2 % (11.6-14.8) Platelet Count 266 K/UL (150-450) Mean Platelet Volume 10.6 FL (6.5-10.1) Neutrophils (%) (Auto) % (45.0-75.0) Lymphocytes (%) (Auto) % (20.0-45.0) Monocytes (%) (Auto) % (1.0-10.0) Eosinophils (%) (Auto) % (0.0-3.0) Basophils (%) (Auto) % (0.0-2.0) Differential Total Cells Counted 100 Neutrophils % (Manual) 71 % (45-75) Lymphocytes % (Manual) 24 % (20-45) Monocytes % (Manual) 2 % (1-10) Eosinophils % (Manual) 0 % (0-3) Basophils % (Manual) 0 % (0-2) Band Neutrophils 3 % (0-8) Platelet Estimate Adequate Platelet Morphology Normal Red Blood Cell Morphology Normal Sodium Level 157 mEQ/L (135-145) Potassium Level 2.7 mEQ/L (3.4-4.9) Chloride Level 128 mEQ/L (98-107) Carbon Dioxide Level 8 mEQ/L (20-30) Anion Gap 21 (5-15) Blood Urea Nitrogen 55 mg/dL (7-23) Creatinine 2.6 mg/dL (0.5-0.9) Estimat Glomerular Filtration Rate mL/min (>60) Glucose Level 61 mg/dL (74-106) Calcium Level 5.4 mg/dL (8.6-10.2) Total Bilirubin 0.2 mg/dL (0.0-1.2) Aspartate Amino Transf (AST/SGOT) 10 U/L (5-40) Alanine Aminotransferase (ALT/SGPT) 5 U/L (3-33) Alkaline Phosphatase 46 U/L (35-104) Total Creatine Kinase 235 U/L (26-140) Creatine Kinase MB 4.7 ng/mL (< 3.8) Creatine Kinase MB Relative Index 2.0 Troponin I < 0.30 ng/mL (<=0.30) Total Protein 4.7 g/dL (6.6-8.7) Albumin 1.7 g/dL (3.5-5.2) Globulin 3.0 g/dL Albumin/Globulin Ratio 0.5 (1.0-2.7) Lactic Acid Level 3.10 mmol/L (0.66-2.22) Urine Color Yellow Urine Appearance Turbid Urine pH 6 (4.5-8.0) Urine Specific [place] 1.015 (1.005-1.035) Urine Protein 4+ (NEGATIVE) Urine Glucose (UA) Negative (NEGATIVE) Urine Ketones Negative (NEGATIVE) Urine Occult Blood 4+ (NEGATIVE) Urine Nitrite Positive (NEGATIVE) Urine Bilirubin Negative (NEGATIVE) Urine Urobilinogen Normal MG/DL (0.0-1.0) Urine Leukocyte Esterase 3+ (NEGATIVE) Urine RBC Tntc /HPF (0 - 2) Urine WBC 15-20 /HPF (0 - 2) Urine Squamous Epithelial Cells Few /LPF (NONE/OCC) Urine Bacteria Moderate /HPF (NONE) Arterial Blood pH 7.367 (7.350-7.450) Arterial Blood Partial Pressure CO2 18.4 mmHg (35.0-45.0) Arterial Blood Partial Pressure O2 552.7 mmHg (75.0-100.0) Arterial Blood HCO3 10.3 mmol/L (22.0-26.0) Arterial Blood Oxygen Saturation 99.6 % (92.0-98.0) Arterial Blood Base Excess -12.4 Pool Test Positive Test 06/28/16 05:20 06/28/16 09:30 06/28/16 13:10 06/28/16 13:15 White Blood Count 32.4 K/UL (4.8-10.8) Red Blood Count 4.42 M/UL (4.20-5.40) Hemoglobin 13.0 G/DL (12.0-16.0) Hematocrit 41.4 % (37.0-47.0) Mean Corpuscular Volume 94 FL (80-99) Mean Corpuscular Hemoglobin 29.4 PG (27.0-31.0) Mean Corpuscular Hemoglobin Concent 31.5 G/DL (32.0-36.0) Red Cell Distribution Width 15.0 % (11.6-14.8) Platelet Count 245 K/UL (150-450) Mean Platelet Volume 11.1 FL (6.5-10.1) Neutrophils (%) (Auto) % (45.0-75.0) Lymphocytes (%) (Auto) % (20.0-45.0) Monocytes (%) (Auto) % (1.0-10.0) Eosinophils (%) (Auto) % (0.0-3.0) Basophils (%) (Auto) % (0.0-2.0) Differential Total Cells Counted 100 Neutrophils % (Manual) 60 % (45-75) Lymphocytes % (Manual) 25 % (20-45) Monocytes % (Manual) 6 % (1-10) Eosinophils % (Manual) 0 % (0-3) Basophils % (Manual) 0 % (0-2) Band Neutrophils 9 % (0-8) Platelet Estimate Adequate Platelet Morphology Normal Hypochromasia 1+ Anisocytosis 1+ Sodium Level 148 mEQ/L (135-145) Potassium Level 5.2 mEQ/L (3.4-4.9) Chloride Level 111 mEQ/L (98-107) Carbon Dioxide Level 12 mEQ/L (20-30) Anion Gap 25 (5-15) Blood Urea Nitrogen 84 mg/dL (7-23) Creatinine 4.6 mg/dL (0.5-0.9) Estimat Glomerular Filtration Rate mL/min (>60) Glucose Level 132 mg/dL (74-106) Lactic Acid Level 2.00 mmol/L (0.66-2.22) 1.20 mmol/L (0.66-2.22) Calcium Level 9.8 mg/dL (8.6-10.2) Magnesium Level 2.7 mg/dL (1.7-2.5) Total Bilirubin 0.3 mg/dL (0.0-1.2) Aspartate Amino Transf (AST/SGOT) 26 U/L (5-40) Alanine Aminotransferase (ALT/SGPT) 14 U/L (3-33) Alkaline Phosphatase 76 U/L (35-104) Troponin I < 0.30 ng/mL (<=0.30) Total Protein 7.6 g/dL (6.6-8.7) Albumin 3.2 g/dL (3.5-5.2) Globulin 4.4 g/dL Albumin/Globulin Ratio 0.7 (1.0-2.7) Thyroid Stimulating Hormone (TSH) 0.095 uIU/mL (0.300-4.500) Random Vancomycin Level 7.4 ug/mL Urine Random Sodium 54 mmol/L Urine Creatinine 62.5 mg/dL Arterial Blood pH 7.367 (7.350-7.450) Arterial Blood Partial Pressure CO2 17.0 mmHg (35.0-45.0) Arterial Blood Partial Pressure O2 175.0 mmHg (75.0-100.0) Arterial Blood HCO3 9.5 mmol/L (22.0-26.0) Arterial Blood Oxygen Saturation 99.0 % (92.0-98.0) Arterial Blood Base Excess -13.4 Pool Test Positive Test 06/29/16 06:00 Sodium Level 147 mEQ/L (135-145) Potassium Level 3.3 mEQ/L (3.4-4.9) Chloride Level 110 mEQ/L (98-107) Carbon Dioxide Level 19 mEQ/L (20-30) Anion Gap 18 (5-15) Blood Urea Nitrogen 47 mg/dL (7-23) Creatinine 2.7 mg/dL (0.5-0.9) Estimat Glomerular Filtration Rate mL/min (>60) Glucose Level 125 mg/dL (74-106) Uric Acid 7.5 mg/dL (3.0-7.5) Calcium Level 8.0 mg/dL (8.6-10.2) Total Bilirubin 0.3 mg/dL (0.0-1.2) Aspartate Amino Transf (AST/SGOT) 23 U/L (5-40) Alanine Aminotransferase (ALT/SGPT) 11 U/L (3-33) Alkaline Phosphatase 65 U/L (35-104) Total Creatine Kinase 352 U/L (26-140) Total Protein 5.8 g/dL (6.6-8.7) Albumin 2.2 g/dL (3.5-5.2) Globulin 3.6 g/dL Albumin/Globulin Ratio 0.6 (1.0-2.7) Random Vancomycin Level 19.1 ug/mL Objective: GENERAL: A well-developed female, appears to be chronically ill. HEENT: Fairly negative. Pupils are sluggish. BiPAP in place. just recently removed to face mask NECK: Supple. No jugular venous distention. LUNGS: With coarse breath sounds. Moderate air entry. without wheeze CARDIAC: S1 and S2. RRR without murmurs, rubs, or gallops. ABDOMEN: Soft, nontender, and nondistended. no HSM EXTREMITIES: No cyanosis or clubbing. No edema. NEUROLOGICAL: Grossly nonfocal. contracted and withdrawn Micro: Microbiology Date/Time Source Procedure Growth Status 06/27/16 14:40 Blood Blood Culture - Preliminary NO GROWTH AFTER 24 HOURS Resulted 06/27/16 14:35 Blood Blood Culture - Preliminary NO GROWTH AFTER 24 HOURS Resulted 06/27/16 15:09 Nasal Nares MRSA Culture - Final NO METHICILLIN RESISTANT STAPH AUREUS... Complete 06/27/16 15:00 Urine,Clean Catch Urine Culture - Preliminary Gram Negative Bacillus 1 Resulted MARCELO [place] Jun 29, 2016 09:08
[2016-06-29] MEDS: Aspirin Baby 81mg ORAL SCH (09:11)
[2016-06-29] MEDS: Multivitamin 5ml Liquid ORAL SCH (09:11)
[2016-06-29] MEDS: Pantoprazole Inj IVP SCH (09:12)
[2016-06-29] MEDS: Heparin 5000 units/ml inj SUBQ SCH ×2 (09:13→21:47)
--- NOTE | 2016-06-29 09:22 | Cardiology Report ---
APPROVED REPORT EXAM: Two-dimensional and M-mode echocardiogram with Doppler and color Doppler. INDICATION CAD M-Mode DIMENSIONS IVSd0.8 (0.7-1.1cm)Left Atrium (MM)1.8 (1.6-4.0cm) LVDd3.3 (3.5-5.6cm)Aortic Root2.3 (2.0-3.7cm) PWd0.6 (0.7-1.1cm)Aortic Cusp Exc.1.6 (1.5-2.0cm) IVSs0.8 cm LVDs1.5 (2.5-4.0cm) PWs0.8 cm Technically difficult study due to poor acoustic windows. Patient on respiratory. Normal left ventricular chamber size. Anteroapical hypokinesis. Left ventricular ejection fraction estimated to be 60 %. No evidence of left ventricular hypertrophy. Anterior Echo-free space, may be due to pericardial fat or effusion. All other cardiac chamber sizes are within normal limits. Focal aortic valve sclerosis with adequate cusp excursion Thickened mitral valve leaflets with normal excursion. Mitral annulus and aortic root calcification. Pulmonic valve not well visualized. Normal tricuspid valve structure. IVC not obtainable. Small echodensity seen on anterior mitral valve leaflet (vegitation). Consider DARREN if clinically indicated. A color flow and spectral Doppler study was performed and revealed: No aortic regurgitation. No mitral regurgitation. Left ventricular diastolic dysfunction grade 1. Moderate tricuspid regurgitation. Tricuspid systolic velocities suggests peak right ventricular systolic pressure of 43 mmHg Consistent with mild pulmonary hypertension.
[2016-06-29 09:48] LABS: ABG BASE EXCESS 1.2
[2016-06-29 09:49] LABS: ABG ALLEN TEST POSITIVE
--- NOTE | 2016-06-29 10:28 | Diagnostic Imaging Report ---
Indications: Abdominal/flank pain Technique: Transabdominal real-time grayscale and duplex Doppler imaging of the kidneys, retroperitoneum, and urinary bladder was performed Findings: Comparison: Abdominal ultrasound 02/05/15 Right kidney measures 10.7 cm in length. Normal contour, echotexture, cortical thickness. 7 mm circumscribed anechoic focus upper pole cortex. No stones, other focal lesions, hydronephrosis, or obvious perinephric abnormalities. Left kidney measures 10 cm in length (undermeasured by ocular care technician). Normal contour, echotexture, cortical thickness. No stones, other focal lesions, hydronephrosis, or obvious perinephric abnormalities. The intrahepatic portion of inferior vena cava is patent and normal caliber. The urinary bladder is collapsed around a Goldstein catheter. Impression: Right renal cortical cyst Otherwise sonographically unremarkable kidneys
--- NOTE | 2016-06-29 10:50 | Diagnostic Imaging Report ---
Indications: Shortness of breath Technique: Portable AP chest Findings: Comparison: 06/27/16 Cardiac silhouette no longer obscured by defibrillator patch. Circumscribed soft tissue mass with central gas lucency again noted in this region. Heart size, pulmonary vasculature remain within normal limits. Mild bilateral interstitial prominence unchanged. No pleural abnormality demonstrated. Central venous catheter remains in place. IMPRESSION: No evidence of acute disease, unchanged Stable chronic changes as described
--- NOTE | 2016-06-29 11:25 | General Progress Note ---
Assessment/Plan Problem List: (1) Hypothyroid ICD Codes: E03.9 - Hypothyroid SNOMED: 91631133 (2) Septic shock ICD Codes: A41.9 - Sepsis, unspecified organism; R65.21 - Severe sepsis with septic shock SNOMED: 63767433 (3) Acute renal failure ICD Codes: N17.9 - Acute kidney failure, unspecified SNOMED: 29779005 (4) Sepsis ICD Codes: A41.9 - Sepsis, unspecified organism SNOMED: 54919435 (5) Altered mental status ICD Codes: R41.82 - Altered mental status, unspecified SNOMED: 901156957 (6) Acute delirium ICD Codes: R41.0 - Acute delirium SNOMED: 2012117 (7) UTI (lower urinary tract infection) ICD Codes: N39.0 - UTI (lower urinary tract infection) SNOMED: 4194755 Status: progressing Assessment/Plan wean pressors ivf dc bipap repeat abg replace K check swallow eval remains critical and guarded Subjective ROS Limited/Unobtainable: No Constitutional: Reports: malaise, weakness HEENT: Reports: no symptoms Cardiovascular: Reports: no symptoms Respiratory: Reports: cough, shortness of breath Gastrointestinal/Abdominal: Reports: no symptoms Genitourinary: Reports: no symptoms Neurologic/Psychiatric: Reports: pre-existing deficit Endocrine: Reports: no symptoms Hematologic/Lymphatic: Reports: anemia Allergies: Coded Allergies: No Known Allergies (Unverified , 04/18/12) All Systems: reviewed and negative except above Subjective doing better. better uop. less pressor requirements. renal fxn improving. Low K noted. remains on bipap Objective Last 24 Hour Vital Signs Date Time Temp Pulse Resp B/P Pulse Ox O2 Delivery O2 Flow Rate FiO2 06/29/16 10:00 65 16 114/56 100 Bi-pap 30 06/29/16 09:45 77 16 109/60 100 Bi-pap 30 06/29/16 09:30 90 17 99/53 100 Bi-pap 30 06/29/16 09:15 73 17 100/59 100 Bi-pap 30 06/29/16 09:07 67 23 100 Full Face 30 06/29/16 09:00 64 18 112/56 100 Bi-pap 30 06/29/16 08:45 106 17 93/58 100 Bi-pap 30 06/29/16 08:30 81 21 119/54 100 Bi-pap 30 06/29/16 08:15 105 18 85/50 100 Bi-pap 30 06/29/16 08:00 98.7 84 22 110/46 100 Bi-pap 30 06/29/16 08:00 88 06/29/16 08:00 30 06/29/16 07:45 82 20 103/50 100 Bi-pap 30 06/29/16 07:30 82 16 93/36 100 Bi-pap 30 06/29/16 07:15 80 23 100 Full Face 30 06/29/16 07:15 93 18 83/30 100 Bi-pap 30 06/29/16 07:00 91 20 93/36 100 Bi-pap 30 06/29/16 06:45 90 20 90/36 100 Bi-pap 30 06/29/16 06:34 80 06/29/16 06:30 88 20 93/39 100 Bi-pap 30 06/29/16 06:15 88 20 93/39 100 Bi-pap 30 06/29/16 06:00 80 20 98/39 100 Bi-pap 30 06/29/16 05:45 94 20 94/46 100 Bi-pap 30 06/29/16 05:30 98 20 100/59 100 Bi-pap 30 06/29/16 05:15 98 20 97/59 100 Bi-pap 30 06/29/16 05:00 114 17 71/46 100 Bi-pap 30 06/29/16 04:54 94 18 100 Full Face 30 06/29/16 04:45 96 17 100/72 100 Bi-pap 30 06/29/16 04:30 83 17 108/72 100 Bi-pap 30 06/29/16 04:15 88 15 146/81 100 Bi-pap 30 06/29/16 04:00 97.4 76 16 114/95 100 Bi-pap 30 06/29/16 04:00 30 06/29/16 03:45 86 16 131/86 100 Bi-pap 30 06/29/16 03:30 86 16 113/86 100 Bi-pap 30 06/29/16 03:15 88 16 120/88 100 Bi-pap 30 06/29/16 03:12 88 18 100 Full Face 30 06/29/16 03:00 73 16 130/88 100 Bi-pap 30 06/29/16 02:30 82 16 136/78 100 Bi-pap 30 06/29/16 02:15 84 16 128/83 100 Bi-pap 30 06/29/16 02:00 84 20 140/72 100 Bi-pap 30 06/29/16 01:45 82 20 105/74 100 Bi-pap 30 06/29/16 01:30 82 16 97/83 100 Bi-pap 30 06/29/16 01:15 76 16 124/80 100 Bi-pap 30 06/29/16 01:00 94 16 145/69 100 Bi-pap 30 06/29/16 00:57 72/51 06/29/16 00:50 97 21 100 Full Face 30 06/29/16 00:45 100 16 59/35 100 Bi-pap 30 06/29/16 00:30 80 16 116/50 100 Bi-pap 30 06/29/16 00:15 73 16 118/51 100 Bi-pap 30 06/29/16 00:00 82 06/29/16 00:00 30 06/29/16 00:00 97.2 74 16 116/51 100 Bi-pap 30 06/28/16 23:30 74 16 111/55 100 Bi-pap 30 06/28/16 23:15 94 16 97/60 100 Bi-pap 30 06/28/16 23:00 72 14 102/46 100 Bi-pap 30 06/28/16 22:45 76 14 109/52 100 Bi-pap 30 06/28/16 22:44 69 15 100 Full Face 30 06/28/16 22:30 71 18 72/55 100 Bi-pap 30 06/28/16 22:30 72/55 06/28/16 22:15 75 18 90/63 100 Bi-pap 30 06/28/16 22:00 76 20 91/63 100 Bi-pap 30 06/28/16 22:00 101/56 06/28/16 21:45 95 19 120/75 100 Bi-pap 30 06/28/16 21:30 93 19 123/77 100 Bi-pap 30 06/28/16 21:15 89 20 121/73 100 Bi-pap 30 06/28/16 21:10 94 17 100 Full Face 30 06/28/16 21:00 109/70 06/28/16 21:00 84 22 109/70 100 Bi-pap 30 06/28/16 20:45 88 19 123/65 100 Bi-pap 30 06/28/16 20:30 83 22 118/67 100 Bi-pap 30 06/28/16 20:15 82 23 120/62 100 Bi-pap 30 06/28/16 20:00 30 06/28/16 20:00 82 06/28/16 20:00 124/26 06/28/16 20:00 82 19 124/56 100 Bi-pap 30 06/28/16 19:30 92 22 100 Full Face 30 06/28/16 19:30 97.0 88 15 111/81 97 Bi-pap 30 06/28/16 19:00 90 10 121/64 97 Bi-pap 30 06/28/16 19:00 121/64 06/28/16 18:45 80 16 128/76 100 Bi-pap 30 06/28/16 18:30 88 14 124/75 100 Bi-pap 30 06/28/16 18:15 92 19 107/53 98 Bi-pap 30 06/28/16 18:00 88 14 107/68 98 Bi-pap 30 06/28/16 18:00 102/53 06/28/16 17:45 88 13 102/53 100 Bi-pap 30 06/28/16 17:30 92 17 106/55 100 Bi-pap 30 06/28/16 17:15 84 14 101/52 100 Bi-pap 30 06/28/16 17:00 93 16 99/55 100 Bi-pap 30 06/28/16 17:00 99/55 06/28/16 16:45 75 19 102/40 100 Bi-pap 30 06/28/16 16:38 78 23 100 Facial 30 06/28/16 16:30 70 21 110/54 100 Bi-pap 30 06/28/16 16:15 84 19 104/55 100 Bi-pap 30 06/28/16 16:00 103 26 98/56 100 Bi-pap 30 06/28/16 16:00 30 06/28/16 16:00 93 06/28/16 16:00 99.1 90 19 107/85 100 Bi-pap 30 06/28/16 16:00 107/85 06/28/16 15:59 138/90 06/28/16 15:45 90 18 138/90 100 Bi-pap 30 06/28/16 15:30 91 16 114/86 100 Bi-pap 30 06/28/16 15:29 91 19 100 Facial 30 06/28/16 15:15 91 19 107/77 100 Bi-pap 30 06/28/16 15:00 133/75 06/28/16 15:00 90 17 133/74 100 Bi-pap 30 06/28/16 14:45 84 16 98/54 100 Bi-pap 30 06/28/16 14:30 95 18 128/81 100 Bi-pap 30 06/28/16 14:15 99 18 126/68 100 Bi-pap 30 06/28/16 14:00 83 17 96/64 100 Bi-pap 30 06/28/16 14:00 96/64 06/28/16 13:45 93 20 133/80 100 Bi-pap 30 06/28/16 13:30 92 19 106/52 100 Bi-pap 30 06/28/16 13:15 90 18 100/67 100 Bi-pap 30 06/28/16 13:10 93 21 100 Facial 30 06/28/16 13:00 95 22 112/75 100 Bi-pap 30 06/28/16 13:00 112/79 06/28/16 12:45 90 18 119/57 100 Bi-pap 30 06/28/16 12:30 92 14 94/56 100 Bi-pap 30 06/28/16 12:15 88 16 95/55 100 Bi-pap 30 06/28/16 12:06 85/55 06/28/16 12:00 99.0 92 16 105/45 100 Bi-pap 30 06/28/16 12:00 30 06/28/16 12:00 92 06/28/16 11:45 91 15 85/55 100 Bi-pap 30 06/28/16 11:30 88 14 99/59 100 Bi-pap 30 06/28/16 11:28 106 18 100 Facial 30 Intake and Output 06/28/16 06/29/16 19:00 07:00 Intake Total 3084.72 ml 3014.36 ml Output Total 561 ml 1210 ml Balance 2523.72 ml 1804.36 ml Intake Oral 40 ml IV Total 3044.72 ml 3014.36 ml Output Urine Total 560 ml 1210 ml Stool Total 1 ml # Bowel Movements 1 4 Laboratory Tests 06/28/16 13:10: Urine Random Sodium 54, Urine Creatinine 62.5 06/28/16 13:15: Arterial Blood pH 7.367, Arterial Blood Partial Pressure CO2 17.0*L, Arterial Blood Partial Pressure O2 175.0H, Arterial Blood HCO3 9.5L, Arterial Blood Oxygen Saturation 99.0H, Arterial Blood Base Excess -13.4, Pool Test Positive 06/29/16 06:00: Sodium Level 147H, Potassium Level 3.3L, Chloride Level 110H, Carbon Dioxide Level 19L, Anion Gap 18H, Blood Urea Nitrogen 47#H, Creatinine 2.7H, Estimat Glomerular Filtration Rate , Glucose Level 125H, Uric Acid 7.5, Calcium Level 8.0L, Total Bilirubin 0.3, Aspartate Amino Transf (AST/SGOT) 23, Alanine Aminotransferase (ALT/SGPT) 11, Alkaline Phosphatase 65, Total Creatine Kinase 352H, Total Protein 5.8L, Albumin 2.2L, Globulin 3.6, Albumin/Globulin Ratio 0.6L, Random Vancomycin Level 19.1 06/29/16 09:38: Arterial Blood pH 7.545H, Arterial Blood Partial Pressure CO2 27.0L, Arterial Blood Partial Pressure O2 125.5H, Arterial Blood HCO3 22.8, Arterial Blood Oxygen Saturation 98.1H, Arterial Blood Base Excess 1.2, Pool Test Positive Height (Feet): 5 Height (Inches): 3.00 Weight (Pounds): 110 General Appearance: WD/WN, lethargic, confused Neck: supple Cardiovascular: normal rate, regular rhythm Respiratory/Chest: lungs clear, normal breath sounds, no respiratory distress, no accessory muscle use Abdomen: normal bowel sounds, non tender, soft, no organomegaly Edema: no edema noted Arm (L), no edema noted Arm (R), no edema noted Leg (L), no edema noted Leg (R), no edema noted Pedal (L), no edema noted Pedal (R), no edema noted Generalized Neurologic: disoriented Skin: normal pigmentation, warm/dry HA FRANCIS Jun 29, 2016 11:25
--- NOTE | 2016-06-29 11:29 | Infectious Diseases Prog Note ---
Assessment/Plan Assessment/Plan antibiotics : vancomycin iv, ertapenem A 1. ? endocarditis 2. klebsiella UTI 3. shock 4. respiratory failure 5. renal failure improving 6. leucocytosis P 1. d/c vancomycin iv, ertapenem 2. start ceftaroline 3. will follow up cultures 4. consider DARREN when stable Subjective ROS Limited/Unobtainable: Yes Allergies: Coded Allergies: No Known Allergies (Unverified , 04/18/12) Objective Vital Signs Last 24 Hour Vital Signs Date Time Temp Pulse Resp B/P Pulse Ox O2 Delivery O2 Flow Rate FiO2 06/29/16 10:00 65 16 114/56 100 Bi-pap 30 06/29/16 09:45 77 16 109/60 100 Bi-pap 30 06/29/16 09:30 90 17 99/53 100 Bi-pap 30 06/29/16 09:15 73 17 100/59 100 Bi-pap 30 06/29/16 09:07 67 23 100 Full Face 30 06/29/16 09:00 64 18 112/56 100 Bi-pap 30 06/29/16 08:45 106 17 93/58 100 Bi-pap 30 06/29/16 08:30 81 21 119/54 100 Bi-pap 30 06/29/16 08:15 105 18 85/50 100 Bi-pap 30 06/29/16 08:00 98.7 84 22 110/46 100 Bi-pap 30 06/29/16 08:00 88 06/29/16 08:00 30 06/29/16 07:45 82 20 103/50 100 Bi-pap 30 06/29/16 07:30 82 16 93/36 100 Bi-pap 30 06/29/16 07:15 80 23 100 Full Face 30 06/29/16 07:15 93 18 83/30 100 Bi-pap 30 06/29/16 07:00 91 20 93/36 100 Bi-pap 30 06/29/16 06:45 90 20 90/36 100 Bi-pap 30 06/29/16 06:34 80 06/29/16 06:30 88 20 93/39 100 Bi-pap 30 06/29/16 06:15 88 20 93/39 100 Bi-pap 30 06/29/16 06:00 80 20 98/39 100 Bi-pap 30 06/29/16 05:45 94 20 94/46 100 Bi-pap 30 06/29/16 05:30 98 20 100/59 100 Bi-pap 30 06/29/16 05:15 98 20 97/59 100 Bi-pap 30 06/29/16 05:00 114 17 71/46 100 Bi-pap 30 06/29/16 04:54 94 18 100 Full Face 30 06/29/16 04:45 96 17 100/72 100 Bi-pap 30 06/29/16 04:30 83 17 108/72 100 Bi-pap 30 06/29/16 04:15 88 15 146/81 100 Bi-pap 30 06/29/16 04:00 97.4 76 16 114/95 100 Bi-pap 30 06/29/16 04:00 30 06/29/16 03:45 86 16 131/86 100 Bi-pap 30 06/29/16 03:30 86 16 113/86 100 Bi-pap 30 06/29/16 03:15 88 16 120/88 100 Bi-pap 30 06/29/16 03:12 88 18 100 Full Face 30 06/29/16 03:00 73 16 130/88 100 Bi-pap 30 06/29/16 02:30 82 16 136/78 100 Bi-pap 30 06/29/16 02:15 84 16 128/83 100 Bi-pap 30 06/29/16 02:00 84 20 140/72 100 Bi-pap 30 06/29/16 01:45 82 20 105/74 100 Bi-pap 30 06/29/16 01:30 82 16 97/83 100 Bi-pap 30 06/29/16 01:15 76 16 124/80 100 Bi-pap 30 06/29/16 01:00 94 16 145/69 100 Bi-pap 30 06/29/16 00:57 72/51 06/29/16 00:50 97 21 100 Full Face 30 06/29/16 00:45 100 16 59/35 100 Bi-pap 30 06/29/16 00:30 80 16 116/50 100 Bi-pap 30 06/29/16 00:15 73 16 118/51 100 Bi-pap 30 06/29/16 00:00 82 06/29/16 00:00 30 06/29/16 00:00 97.2 74 16 116/51 100 Bi-pap 30 06/28/16 23:30 74 16 111/55 100 Bi-pap 30 06/28/16 23:15 94 16 97/60 100 Bi-pap 30 06/28/16 23:00 72 14 102/46 100 Bi-pap 30 06/28/16 22:45 76 14 109/52 100 Bi-pap 30 06/28/16 22:44 69 15 100 Full Face 30 06/28/16 22:30 71 18 72/55 100 Bi-pap 30 06/28/16 22:30 72/55 06/28/16 22:15 75 18 90/63 100 Bi-pap 30 06/28/16 22:00 76 20 91/63 100 Bi-pap 30 06/28/16 22:00 101/56 06/28/16 21:45 95 19 120/75 100 Bi-pap 30 06/28/16 21:30 93 19 123/77 100 Bi-pap 30 06/28/16 21:15 89 20 121/73 100 Bi-pap 30 06/28/16 21:10 94 17 100 Full Face 30 06/28/16 21:00 109/70 06/28/16 21:00 84 22 109/70 100 Bi-pap 30 06/28/16 20:45 88 19 123/65 100 Bi-pap 30 06/28/16 20:30 83 22 118/67 100 Bi-pap 30 06/28/16 20:15 82 23 120/62 100 Bi-pap 30 06/28/16 20:00 30 06/28/16 20:00 82 06/28/16 20:00 124/26 06/28/16 20:00 82 19 124/56 100 Bi-pap 30 06/28/16 19:30 92 22 100 Full Face 30 06/28/16 19:30 97.0 88 15 111/81 97 Bi-pap 30 06/28/16 19:00 90 10 121/64 97 Bi-pap 30 06/28/16 19:00 121/64 06/28/16 18:45 80 16 128/76 100 Bi-pap 30 06/28/16 18:30 88 14 124/75 100 Bi-pap 30 06/28/16 18:15 92 19 107/53 98 Bi-pap 30 06/28/16 18:00 88 14 107/68 98 Bi-pap 30 06/28/16 18:00 102/53 06/28/16 17:45 88 13 102/53 100 Bi-pap 30 06/28/16 17:30 92 17 106/55 100 Bi-pap 30 06/28/16 17:15 84 14 101/52 100 Bi-pap 30 06/28/16 17:00 93 16 99/55 100 Bi-pap 30 06/28/16 17:00 99/55 06/28/16 16:45 75 19 102/40 100 Bi-pap 30 06/28/16 16:38 78 23 100 Facial 30 06/28/16 16:30 70 21 110/54 100 Bi-pap 30 06/28/16 16:15 84 19 104/55 100 Bi-pap 30 06/28/16 16:00 103 26 98/56 100 Bi-pap 30 06/28/16 16:00 30 06/28/16 16:00 93 06/28/16 16:00 99.1 90 19 107/85 100 Bi-pap 30 06/28/16 16:00 107/85 06/28/16 15:59 138/90 06/28/16 15:45 90 18 138/90 100 Bi-pap 30 06/28/16 15:30 91 16 114/86 100 Bi-pap 30 06/28/16 15:29 91 19 100 Facial 30 06/28/16 15:15 91 19 107/77 100 Bi-pap 30 06/28/16 15:00 133/75 06/28/16 15:00 90 17 133/74 100 Bi-pap 30 06/28/16 14:45 84 16 98/54 100 Bi-pap 30 06/28/16 14:30 95 18 128/81 100 Bi-pap 30 06/28/16 14:15 99 18 126/68 100 Bi-pap 30 06/28/16 14:00 83 17 96/64 100 Bi-pap 30 06/28/16 14:00 96/64 06/28/16 13:45 93 20 133/80 100 Bi-pap 30 06/28/16 13:30 92 19 106/52 100 Bi-pap 30 06/28/16 13:15 90 18 100/67 100 Bi-pap 30 06/28/16 13:10 93 21 100 Facial 30 06/28/16 13:00 95 22 112/75 100 Bi-pap 30 06/28/16 13:00 112/79 06/28/16 12:45 90 18 119/57 100 Bi-pap 30 06/28/16 12:30 92 14 94/56 100 Bi-pap 30 06/28/16 12:15 88 16 95/55 100 Bi-pap 30 06/28/16 12:06 85/55 06/28/16 12:00 99.0 92 16 105/45 100 Bi-pap 30 06/28/16 12:00 30 06/28/16 12:00 92 06/28/16 11:45 91 15 85/55 100 Bi-pap 30 06/28/16 11:30 88 14 99/59 100 Bi-pap 30 06/28/16 11:28 106 18 100 Facial 30 Height (Feet): 5 Height (Inches): 3.00 Weight (Pounds): 110 HEENT: other - on bipap Respiratory/Chest: lungs clear Cardiovascular: normal rate, regular rhythm, no gallop/murmur Abdomen: soft, non tender Extremities: no edema, other - right IJ catheter Microbiology Date/Time Source Procedure Growth Status 06/27/16 14:40 Blood Blood Culture - Preliminary NO GROWTH AFTER 24 HOURS Resulted 06/27/16 14:35 Blood Blood Culture - Preliminary NO GROWTH AFTER 24 HOURS Resulted 06/27/16 15:09 Nasal Nares MRSA Culture - Final NO METHICILLIN RESISTANT STAPH AUREUS... Complete 06/27/16 15:00 Urine,Clean Catch Urine Culture - Final Klebsiella Pneumoniae Complete Laboratory Tests Test 06/28/16 13:10 06/28/16 13:15 06/29/16 06:00 06/29/16 09:38 Urine Random Sodium 54 mmol/L Urine Creatinine 62.5 mg/dL Arterial Blood pH 7.367 (7.350-7.450) 7.545 (7.350-7.450) Arterial Blood Partial Pressure CO2 17.0 mmHg (35.0-45.0) *L 27.0 mmHg (35.0-45.0) L Arterial Blood Partial Pressure O2 175.0 mmHg (75.0-100.0) H 125.5 mmHg (75.0-100.0) H Arterial Blood HCO3 9.5 mmol/L (22.0-26.0) L 22.8 mmol/L (22.0-26.0) Arterial Blood Oxygen Saturation 99.0 % (92.0-98.0) H 98.1 % (92.0-98.0) H Arterial Blood Base Excess -13.4 1.2 Pool Test Positive Positive Sodium Level 147 mEQ/L (135-145) H Potassium Level 3.3 mEQ/L (3.4-4.9) L Chloride Level 110 mEQ/L (98-107) H Carbon Dioxide Level 19 mEQ/L (20-30) L Anion Gap 18 (5-15) H Blood Urea Nitrogen 47 mg/dL (7-23) #H Creatinine 2.7 mg/dL (0.5-0.9) H Estimat Glomerular Filtration Rate mL/min (>60) Glucose Level 125 mg/dL (74-106) H Uric Acid 7.5 mg/dL (3.0-7.5) Calcium Level 8.0 mg/dL (8.6-10.2) L Total Bilirubin 0.3 mg/dL (0.0-1.2) Aspartate Amino Transf (AST/SGOT) 23 U/L (5-40) Alanine Aminotransferase (ALT/SGPT) 11 U/L (3-33) Alkaline Phosphatase 65 U/L (35-104) Total Creatine Kinase 352 U/L (26-140) H Total Protein 5.8 g/dL (6.6-8.7) L Albumin 2.2 g/dL (3.5-5.2) L Globulin 3.6 g/dL Albumin/Globulin Ratio 0.6 (1.0-2.7) L Random Vancomycin Level 19.1 ug/mL DAMIAN GUZMAN Jun 29, 2016 11:29
[2016-06-29] MEDS: CEFTAROLINE IVPB SCH (14:13)
[2016-06-29] MEDS: NS IVPB SCH (14:13)
[2016-06-29 15:22] LABS: ABG PCO2 27.2 mmHg (35.0-45.0)
[2016-06-29 15:23] LABS: ABG ALLEN TEST POSITIVE; ABG BASE EXCESS 1.6
--- NOTE | 2016-06-29 15:43 | Nephrology Progress Note ---
Assessment/Plan Problem List: (1) Pyelonephritis (2) Acute hypernatremia (3) Dehydration (4) Sepsis (5) MARCELLE (acute kidney injury) (6) Septic shock Plan still on levophed and iv rehydration, lab trend better, iv adjusted Subjective ROS Limited/Unobtainable: Yes Objective Objective Last 24 Hour Vital Signs Date Time Temp Pulse Resp B/P Pulse Ox O2 Delivery O2 Flow Rate FiO2 06/29/16 13:17 100 3.0 32 06/29/16 12:15 74 17 124/62 100 Nasal Cannula 3.0 06/29/16 12:00 62 06/29/16 12:00 98.3 85 18 97/57 100 Nasal Cannula 3.0 06/29/16 11:53 97/57 06/29/16 11:45 65 20 165/71 100 Nasal Cannula 3.0 06/29/16 11:40 67 22 100 Full Face 30 06/29/16 11:30 65 15 105/53 99 Bi-pap 30 06/29/16 11:15 70 14 105/53 100 Bi-pap 30 06/29/16 11:00 65 13 122/60 100 Bi-pap 30 06/29/16 10:45 65 12 130/55 100 Bi-pap 30 06/29/16 10:30 65 13 99/52 100 Bi-pap 30 06/29/16 10:15 69 13 90/47 100 Bi-pap 30 06/29/16 10:00 65 16 114/56 100 Bi-pap 30 06/29/16 09:45 77 16 109/60 100 Bi-pap 30 06/29/16 09:30 90 17 99/53 100 Bi-pap 30 06/29/16 09:15 73 17 100/59 100 Bi-pap 30 06/29/16 09:07 67 23 100 Full Face 30 06/29/16 09:00 64 18 112/56 100 Bi-pap 30 06/29/16 08:45 106 17 93/58 100 Bi-pap 30 06/29/16 08:30 81 21 119/54 100 Bi-pap 30 06/29/16 08:15 105 18 85/50 100 Bi-pap 30 06/29/16 08:00 98.7 84 22 110/46 100 Bi-pap 30 06/29/16 08:00 88 1/16/17 08:00 30 06/29/16 07:45 82 20 103/50 100 Bi-pap 30 06/29/16 07:30 82 16 93/36 100 Bi-pap 30 06/29/16 07:15 80 23 100 Full Face 30 06/29/16 07:15 93 18 83/30 100 Bi-pap 30 06/29/16 07:00 91 20 93/36 100 Bi-pap 30 06/29/16 06:45 90 20 90/36 100 Bi-pap 30 06/29/16 06:34 80 06/29/16 06:30 88 20 93/39 100 Bi-pap 30 06/29/16 06:15 88 20 93/39 100 Bi-pap 30 06/29/16 06:00 80 20 98/39 100 Bi-pap 30 06/29/16 05:45 94 20 94/46 100 Bi-pap 30 06/29/16 05:30 98 20 100/59 100 Bi-pap 30 06/29/16 05:15 98 20 97/59 100 Bi-pap 30 06/29/16 05:00 114 17 71/46 100 Bi-pap 30 06/29/16 04:54 94 18 100 Full Face 30 06/29/16 04:45 96 17 100/72 100 Bi-pap 30 06/29/16 04:30 83 17 108/72 100 Bi-pap 30 06/29/16 04:15 88 15 146/81 100 Bi-pap 30 06/29/16 04:00 97.4 76 16 114/95 100 Bi-pap 30 06/29/16 04:00 30 06/29/16 03:45 86 16 131/86 100 Bi-pap 30 06/29/16 03:30 86 16 113/86 100 Bi-pap 30 06/29/16 03:15 88 16 120/88 100 Bi-pap 30 06/29/16 03:12 88 18 100 Full Face 30 06/29/16 03:00 73 16 130/88 100 Bi-pap 30 06/29/16 02:30 82 16 136/78 100 Bi-pap 30 06/29/16 02:15 84 16 128/83 100 Bi-pap 30 06/29/16 02:00 84 20 140/72 100 Bi-pap 30 06/29/16 01:45 82 20 105/74 100 Bi-pap 30 06/29/16 01:30 82 16 97/83 100 Bi-pap 30 06/29/16 01:15 76 16 124/80 100 Bi-pap 30 06/29/16 01:00 94 16 145/69 100 Bi-pap 30 06/29/16 00:57 72/51 06/29/16 00:50 97 21 100 Full Face 30 06/29/16 00:45 100 16 59/35 100 Bi-pap 30 06/29/16 00:30 80 16 116/50 100 Bi-pap 30 06/29/16 00:15 73 16 118/51 100 Bi-pap 30 06/29/16 00:00 82 06/29/16 00:00 30 06/29/16 00:00 97.2 74 16 116/51 100 Bi-pap 30 06/28/16 23:30 74 16 111/55 100 Bi-pap 30 06/28/16 23:15 94 16 97/60 100 Bi-pap 30 06/28/16 23:00 72 14 102/46 100 Bi-pap 30 06/28/16 22:45 76 14 109/52 100 Bi-pap 30 06/28/16 22:44 69 15 100 Full Face 30 06/28/16 22:30 71 18 72/55 100 Bi-pap 30 06/28/16 22:30 72/55 06/28/16 22:15 75 18 90/63 100 Bi-pap 30 06/28/16 22:00 76 20 91/63 100 Bi-pap 30 06/28/16 22:00 101/56 06/28/16 21:45 95 19 120/75 100 Bi-pap 30 06/28/16 21:30 93 19 123/77 100 Bi-pap 30 06/28/16 21:15 89 20 121/73 100 Bi-pap 30 06/28/16 21:10 94 17 100 Full Face 30 06/28/16 21:00 109/70 06/28/16 21:00 84 22 109/70 100 Bi-pap 30 06/28/16 20:45 88 19 123/65 100 Bi-pap 30 06/28/16 20:30 83 22 118/67 100 Bi-pap 30 06/28/16 20:15 82 23 120/62 100 Bi-pap 30 06/28/16 20:00 30 06/28/16 20:00 82 06/28/16 20:00 124/26 06/28/16 20:00 82 19 124/56 100 Bi-pap 30 06/28/16 19:30 92 22 100 Full Face 30 06/28/16 19:30 97.0 88 15 111/81 97 Bi-pap 30 06/28/16 19:00 90 10 121/64 97 Bi-pap 30 06/28/16 19:00 121/64 06/28/16 18:45 80 16 128/76 100 Bi-pap 30 06/28/16 18:30 88 14 124/75 100 Bi-pap 30 06/28/16 18:15 92 19 107/53 98 Bi-pap 30 06/28/16 18:00 88 14 107/68 98 Bi-pap 30 06/28/16 18:00 102/53 06/28/16 17:45 88 13 102/53 100 Bi-pap 30 06/28/16 17:30 92 17 106/55 100 Bi-pap 30 06/28/16 17:15 84 14 101/52 100 Bi-pap 30 06/28/16 17:00 93 16 99/55 100 Bi-pap 30 06/28/16 17:00 99/55 06/28/16 16:45 75 19 102/40 100 Bi-pap 30 06/28/16 16:38 78 23 100 Facial 30 06/28/16 16:30 70 21 110/54 100 Bi-pap 30 06/28/16 16:15 84 19 104/55 100 Bi-pap 30 06/28/16 16:00 103 26 98/56 100 Bi-pap 30 06/28/16 16:00 30 06/28/16 16:00 93 06/28/16 16:00 99.1 90 19 107/85 100 Bi-pap 30 06/28/16 16:00 107/85 06/28/16 15:59 138/90 06/28/16 15:45 90 18 138/90 100 Bi-pap 30 Intake and Output 06/28/16 06/29/16 19:00 07:00 Intake Total 3084.72 ml 3014.36 ml Output Total 561 ml 1210 ml Balance 2523.72 ml 1804.36 ml Intake Oral 40 ml IV Total 3044.72 ml 3014.36 ml Output Urine Total 560 ml 1210 ml Stool Total 1 ml # Bowel Movements 1 4 Laboratory Tests 06/29/16 06:00: Sodium Level 147H, Potassium Level 3.3L, Chloride Level 110H, Carbon Dioxide Level 19L, Anion Gap 18H, Blood Urea Nitrogen 47#H, Creatinine 2.7H, Estimat Glomerular Filtration Rate , Glucose Level 125H, Uric Acid 7.5, Calcium Level 8.0L, Total Bilirubin 0.3, Aspartate Amino Transf (AST/SGOT) 23, Alanine Aminotransferase (ALT/SGPT) 11, Alkaline Phosphatase 65, Total Creatine Kinase 352H, Total Protein 5.8L, Albumin 2.2L, Globulin 3.6, Albumin/Globulin Ratio 0.6L, Random Vancomycin Level 19.1 06/29/16 09:38: Arterial Blood pH 7.545H, Arterial Blood Partial Pressure CO2 27.0L, Arterial Blood Partial Pressure O2 125.5H, Arterial Blood HCO3 22.8, Arterial Blood Oxygen Saturation 98.1H, Arterial Blood Base Excess 1.2, Pool Test Positive 06/29/16 15:14: Arterial Blood pH 7.549H, Arterial Blood Partial Pressure CO2 27.2L, Arterial Blood Partial Pressure O2 106.7H, Arterial Blood HCO3 23.2, Arterial Blood Oxygen Saturation 97.7, Arterial Blood Base Excess 1.6, Pool Test Positive Height (Feet): 5 Height (Inches): 3.00 Weight (Pounds): 110 General Appearance: lethargic, confused, thin EENT: normal ENT inspection Neck: normal alignment Cardiovascular: regular rhythm, tachycardia Respiratory/Chest: lungs clear Abdomen: non tender Neurologic: motor weakness, disoriented JILL GASPAR Jun 29, 2016 15:43
[2016-06-29] MEDS: D5 1/2NS w/KCl 20mEq 1,000 ML IV SCH (18:53)
[2016-06-29] MEDS: DOPamine 400mg/250ml 250 ML IV SCH (21:00)
[2016-06-30] VITALS (93 sets, daily range): BP systolic 72–121; BP diastolic 34–73
[2016-06-30] MEDS: CEFTAROLINE IVPB SCH ×2 (01:16→12:30)
[2016-06-30] MEDS: NS IVPB SCH ×2 (01:16→12:30)
[2016-06-30] MEDS: D5 1/2NS w/KCl 20mEq 1,000 ML IV SCH ×5 (01:17→21:29)
--- NOTE | 2016-06-30 01:38 | Progress Note ---
DATE: 06/29/2016 CARDIOLOGY PROGRESS NOTE: SUBJECTIVE: Condition remains critical. Prognosis guarded. The patient remains in the intensive care unit. Blood pressure remains marginal. She is on pressors. BiPAP has been discontinued. She is more alert. OBJECTIVE: VITAL SIGNS: Blood pressure 99/53 to 109/60, pulse 77 to 90, respiratory 16, and afebrile. LUNGS: Bilateral breath sounds with rhonchi. HEART: Regular rhythm and rate. Normal S1, S2 with a fourth heart sound. ABDOMEN: Soft. EXTREMITIES: No edema. LABORATORY AND DIAGNOSTIC DATA: Sodium 147, potassium 3.3, bicarb 19, BUN 47, and creatinine 2.7. CK 352. Albumin 2.2. Magnesium level pending. Chest x-ray today reveals no acute process. IMPRESSION: 1. Severe sepsis with shock. 2. Urinary tract infection. 3. Severe dehydration. 4. Hypernatremia. 5. Hypokalemia . 6. Severe protein-calorie malnutrition. 7. Ischemic cardiomyopathy. 8. Acute renal failure. PLAN: Taper pressors. Continue hypotonic IV fluids. Replace potassium. Recheck magnesium. DVT prophylaxis. Broad-spectrum antibiotics. Pending final results of cultures. Do not intubate. Taper off BiPAP. Monitor acid-base parameters. Yohan Corbett M.D. DR: Ignacio JOB#: [id number] CC:
[2016-06-30 04:58] LABS: BASOPHILS % (AUTO) 0.6 % (0.0-2.0); EOSINOPHILS % (AUTO) 9.4 % (0.0-3.0); LYMPHOCYTES % (AUTO) 30.6 % (20.0-45.0); MEAN CORPUSCULAR HEMOGLOBIN 30.9 PG (27.0-31.0); MEAN CORPUSCULAR HGB CONC 34.2 G/DL (32.0-36.0); MEAN CORPUSCULAR VOLUME 90 FL (80-99); MEAN PLATELET VOLUME 11.3 FL (6.5-10.1); MONOCYTES % (AUTO) 6.5 % (1.0-10.0); PLATELET COUNT 152 K/UL (150-450); RED BLOOD COUNT 3.18 M/UL (4.20-5.40); WHITE BLOOD COUNT 14.9 K/UL (4.8-10.8)
[2016-06-30 05:24] LABS: ALANINE AMINOTRANSFERASE 10 U/L (3-33); ALBUMIN/GLOBULIN RATIO 0.6 (1.0-2.7); ASPARTATE AMINO TRANSFERASE 18 U/L (5-40); CALCIUM 7.8 mg/dL (8.6-10.2); CARBON DIOXIDE 23 mEQ/L (20-30); CREATININE 1.6 mg/dL (0.5-0.9); HEMOLYSIS 3; MAGNESIUM 1.4 mg/dL (1.7-2.5); TOTAL PROTEIN 5.5 g/dL (6.6-8.7)
[2016-06-30 05:33] LABS: ANION GAP 11 (5-15); CHLORIDE 107 mEQ/L (98-107); POTASSIUM 3.6 mEQ/L (3.4-4.9); SODIUM 141 mEQ/L (135-145)
--- NOTE | 2016-06-30 05:59 | General Progress Note ---
Assessment/Plan Problem List: (1) Hypothyroid ICD Codes: E03.9 - Hypothyroid SNOMED: 59841156 (2) Septic shock ICD Codes: A41.9 - Sepsis, unspecified organism; R65.21 - Severe sepsis with septic shock SNOMED: 88621438 (3) Acute renal failure ICD Codes: N17.9 - Acute kidney failure, unspecified SNOMED: 47891064 (4) Sepsis ICD Codes: A41.9 - Sepsis, unspecified organism SNOMED: 53497366 (5) Altered mental status ICD Codes: R41.82 - Altered mental status, unspecified SNOMED: 570720894 (6) Acute delirium ICD Codes: R41.0 - Acute delirium SNOMED: 7284222 (7) UTI (lower urinary tract infection) ICD Codes: N39.0 - UTI (lower urinary tract infection) SNOMED: 0787223 Status: progressing Assessment/Plan wean pressors ivf dc bipap monitor abg abx per ID icu care until off pressors check swallow eval remains critical and guarded Subjective ROS Limited/Unobtainable: No Constitutional: Reports: malaise, weakness HEENT: Reports: no symptoms Cardiovascular: Reports: no symptoms Respiratory: Reports: no symptoms Gastrointestinal/Abdominal: Reports: difficulty swallowing Genitourinary: Reports: no symptoms Neurologic/Psychiatric: Reports: pre-existing deficit Endocrine: Reports: no symptoms Hematologic/Lymphatic: Reports: anemia Allergies: Coded Allergies: No Known Allergies (Unverified , 04/18/12) All Systems: reviewed and negative except above Subjective doing better. better uop. on 4 mch levophed. now off bipap. labs/renal fxn improving. alert. confused at baseline Objective Last 24 Hour Vital Signs Date Time Temp Pulse Resp B/P Pulse Ox O2 Delivery O2 Flow Rate FiO2 06/30/16 04:00 97 06/30/16 02:30 69 20 81/46 98 Nasal Cannula 2.0 06/30/16 02:15 73 17 105/48 98 Nasal Cannula 2.0 06/30/16 02:00 74 17 91/39 97 Nasal Cannula 2.0 06/30/16 01:45 76 14 76/35 97 Nasal Cannula 2.0 06/30/16 01:30 78 13 86/35 97 Nasal Cannula 2.0 06/30/16 01:15 83 16 86/58 97 Nasal Cannula 2.0 06/30/16 01:00 88 16 98/54 98 Nasal Cannula 3.0 06/30/16 00:45 73 20 98/45 98 Nasal Cannula 3.0 06/30/16 00:30 74 20 97/50 98 Nasal Cannula 3.0 06/30/16 00:15 75 20 95/48 98 Nasal Cannula 3.0 06/30/16 00:00 91 06/30/16 00:00 97.6 77 18 98/48 98 Nasal Cannula 3.0 06/29/16 23:45 77 22 92/50 98 Nasal Cannula 3.0 06/29/16 23:30 78 24 97/59 98 Nasal Cannula 3.0 06/29/16 23:00 78 24 97/59 98 Nasal Cannula 3.0 06/29/16 23:00 97/59 06/29/16 22:45 80 24 97/59 98 Nasal Cannula 3.0 06/29/16 22:30 82 24 90/49 98 Nasal Cannula 3.0 06/29/16 22:15 84 24 70/55 98 Nasal Cannula 3.0 06/29/16 22:03 82 24 80/43 98 Nasal Cannula 3.0 06/29/16 22:00 80/43 06/29/16 21:45 81 24 90/33 98 Nasal Cannula 3.0 06/29/16 21:30 77 24 89/33 98 Nasal Cannula 3.0 06/29/16 21:15 75 24 114/68 98 Nasal Cannula 3.0 06/29/16 21:00 73 24 123/73 98 Nasal Cannula 3.0 06/29/16 21:00 123/73 06/29/16 20:45 79 20 115/50 98 Nasal Cannula 3.0 06/29/16 20:30 79 20 115/50 98 Nasal Cannula 3.0 06/29/16 20:15 74 19 109/53 98 Nasal Cannula 3.0 06/29/16 20:00 77 06/29/16 20:00 121/51 06/29/16 20:00 97.2 77 21 121/56 98 Nasal Cannula 3.0 06/29/16 19:45 82 23 121/51 98 Nasal Cannula 3.0 06/29/16 19:30 78 23 105/61 98 Nasal Cannula 3.0 1/16/17 19:20 Nasal Cannula 3.0 32 06/29/16 19:19 97 Nasal Cannula 3.0 32 06/29/16 19:15 76 23 111/56 98 Nasal Cannula 3.0 06/29/16 19:00 77/98 06/29/16 19:00 77 23 114/59 98 Nasal Cannula 3.0 06/29/16 18:45 78 21 106/68 98 Nasal Cannula 3.0 06/29/16 18:30 78 21 106/68 98 Nasal Cannula 3.0 06/29/16 18:15 78 20 108/50 98 Nasal Cannula 3.0 06/29/16 18:00 69 12 115/57 98 Nasal Cannula 3.0 06/29/16 18:00 78/98 06/29/16 17:45 78 12 115/57 98 Nasal Cannula 3.0 06/29/16 17:30 68 12 130/52 98 Nasal Cannula 3.0 06/29/16 17:21 99 3.0 32 06/29/16 17:15 75 12 114/53 98 Nasal Cannula 3.0 06/29/16 17:00 76 15 128/71 100 Nasal Cannula 3.0 06/29/16 17:00 128/71 06/29/16 16:45 76 14 128/71 99 Nasal Cannula 3.0 06/29/16 16:30 75 15 127/64 100 Nasal Cannula 3.0 06/29/16 16:15 71 13 110/50 100 Nasal Cannula 3.0 06/29/16 16:14 71 06/29/16 16:00 97.4 71 14 111/58 100 Nasal Cannula 3.0 06/29/16 16:00 111/58 06/29/16 15:45 75 16 111/58 100 Nasal Cannula 3.0 06/29/16 15:30 78 16 113/57 100 Nasal Cannula 3.0 06/29/16 15:15 70 11 97/82 100 Nasal Cannula 3.0 06/29/16 15:00 68 17 118/48 99 Nasal Cannula 3.0 06/29/16 14:57 100 3.0 32 06/29/16 14:45 84 17 102/50 100 Nasal Cannula 3.0 06/29/16 14:30 86 16 110/74 100 Nasal Cannula 3.0 06/29/16 14:15 82 14 142/90 100 Nasal Cannula 3.0 06/29/16 14:00 87 13 135/93 100 Nasal Cannula 3.0 06/29/16 13:45 76 13 132/71 100 Nasal Cannula 3.0 06/29/16 13:30 91 18 113/81 100 Nasal Cannula 3.0 06/29/16 13:17 100 3.0 32 06/29/16 13:15 91 16 125/71 100 Nasal Cannula 3.0 06/29/16 13:00 76 15 104/64 100 Nasal Cannula 3.0 06/29/16 12:45 92 16 137/79 100 Nasal Cannula 3.0 06/29/16 12:30 77 15 164/95 100 Nasal Cannula 3.0 06/29/16 12:15 74 17 124/62 100 Nasal Cannula 3.0 06/29/16 12:00 62 06/29/16 12:00 98.3 85 18 97/57 100 Nasal Cannula 3.0 06/29/16 11:53 97/57 06/29/16 11:45 65 20 165/71 100 Nasal Cannula 3.0 06/29/16 11:40 67 22 100 Full Face 30 06/29/16 11:30 65 15 105/53 99 Bi-pap 30 06/29/16 11:15 70 14 105/53 100 Bi-pap 30 06/29/16 11:00 65 13 122/60 100 Bi-pap 30 06/29/16 10:45 65 12 130/55 100 Bi-pap 30 06/29/16 10:30 65 13 99/52 100 Bi-pap 30 06/29/16 10:15 69 13 90/47 100 Bi-pap 30 06/29/16 10:00 65 16 114/56 100 Bi-pap 30 06/29/16 09:45 77 16 109/60 100 Bi-pap 30 06/29/16 09:30 90 17 99/53 100 Bi-pap 30 06/29/16 09:15 73 17 100/59 100 Bi-pap 30 06/29/16 09:07 67 23 100 Full Face 30 06/29/16 09:00 64 18 112/56 100 Bi-pap 30 06/29/16 08:45 106 17 93/58 100 Bi-pap 30 06/29/16 08:30 81 21 119/54 100 Bi-pap 30 06/29/16 08:15 105 18 85/50 100 Bi-pap 30 06/29/16 08:00 98.7 84 22 110/46 100 Bi-pap 30 06/29/16 08:00 88 06/29/16 08:00 30 06/29/16 07:45 82 20 103/50 100 Bi-pap 30 06/29/16 07:30 82 16 93/36 100 Bi-pap 30 06/29/16 07:15 80 23 100 Full Face 30 06/29/16 07:15 93 18 83/30 100 Bi-pap 30 06/29/16 07:00 91 20 93/36 100 Bi-pap 30 06/29/16 06:45 90 20 90/36 100 Bi-pap 30 06/29/16 06:34 80 06/29/16 06:30 88 20 93/39 100 Bi-pap 30 06/29/16 06:15 88 20 93/39 100 Bi-pap 30 06/29/16 06:00 80 20 98/39 100 Bi-pap 30 Intake and Output 06/29/16 06/30/16 19:00 07:00 Intake Total 1727.48 ml 667.48 ml Output Total 3180 ml 630 ml Balance -1452.52 ml 37.48 ml IV Total 1727.48 ml 667.48 ml Output Urine Total 3180 ml 630 ml # Bowel Movements 4 5 Laboratory Tests 06/29/16 06:00: Sodium Level 147H, Potassium Level 3.3L, Chloride Level 110H, Carbon Dioxide Level 19L, Anion Gap 18H, Blood Urea Nitrogen 47#H, Creatinine 2.7H, Estimat Glomerular Filtration Rate , Glucose Level 125H, Uric Acid 7.5, Calcium Level 8.0L, Total Bilirubin 0.3, Aspartate Amino Transf (AST/SGOT) 23, Alanine Aminotransferase (ALT/SGPT) 11, Alkaline Phosphatase 65, Total Creatine Kinase 352H, Total Protein 5.8L, Albumin 2.2L, Globulin 3.6, Albumin/Globulin Ratio 0.6L, Random Vancomycin Level 19.1 06/29/16 09:38: Arterial Blood pH 7.545H, Arterial Blood Partial Pressure CO2 27.0L, Arterial Blood Partial Pressure O2 125.5H, Arterial Blood HCO3 22.8, Arterial Blood Oxygen Saturation 98.1H, Arterial Blood Base Excess 1.2, Pool Test Positive 06/29/16 15:14: Arterial Blood pH 7.549H, Arterial Blood Partial Pressure CO2 27.2L, Arterial Blood Partial Pressure O2 106.7H, Arterial Blood HCO3 23.2, Arterial Blood Oxygen Saturation 97.7, Arterial Blood Base Excess 1.6, Pool Test Positive 06/30/16 04:15: Sodium Level 141, Potassium Level 3.6, Chloride Level 107, Carbon Dioxide Level 23, Anion Gap 11, Blood Urea Nitrogen 24H, Creatinine 1.6H, Estimat Glomerular Filtration Rate , Glucose Level 110H, Calcium Level 7.8L, Total Bilirubin 0.4, Aspartate Amino Transf (AST/SGOT) 18, Alanine Aminotransferase (ALT/SGPT) 10, Alkaline Phosphatase 74, Total Protein 5.5L, Albumin 2.1L, Globulin 3.4, Albumin /Globulin Ratio 0.6L, White Blood Count 14.9H, Red Blood Count 3.18L, Hemoglobin 9.8L, Hematocrit 28.7L, Mean Corpuscular Volume 90, Mean Corpuscular Hemoglobin 30.9, Mean Corpuscular Hemoglobin Concent 34.2, Red Cell Distribution Width 14.0, Platelet Count 152, Mean Platelet Volume 11.3H, Neutrophils (%) (Auto) 53.0, Lymphocytes (%) (Auto) 30.6, Monocytes (%) (Auto) 6.5, Eosinophils (%) (Auto) 9.4H, Basophils (%) (Auto) 0.6, Magnesium Level 1.4L Height (Feet): 5 Height (Inches): 3.00 Weight (Pounds): 110 Objective General Appearance: WD/WN, lethargic, confused Neck: supple Cardiovascular: normal rate, regular rhythm Respiratory/Chest: lungs clear, normal breath sounds, no respiratory distress, no accessory muscle use Abdomen: normal bowel sounds, non tender, soft, no organomegaly Edema: no edema noted Arm (L), no edema noted Arm (R), no edema noted Leg (L), no edema noted Leg (R), no edema noted Pedal (L), no edema noted Pedal (R), no edema noted Generalized Neurologic: disoriented Skin: normal pigmentation, warm/dry HA FRANCIS Jun 30, 2016 05:59
[2016-06-30] MEDS: Levothyroxine 125mcg tab ORAL SCH (07:11)
[2016-06-30] MEDS ORDERED: Levophed 4mg/4mL Inj IV ONE (07:56)
[2016-06-30] MEDS: Pantoprazole Inj IVP SCH (09:00)
[2016-06-30] MEDS: Multivitamin 5ml Liquid ORAL SCH (09:00)
[2016-06-30] MEDS: Aspirin Baby 81mg ORAL SCH (09:00)
[2016-06-30] MEDS: Heparin 5000 units/ml inj SUBQ SCH ×2 (09:02→20:38)
--- NOTE | 2016-06-30 09:07 | Critical Care Progress Note ---
Assessment/Plan Assessment/Plan IMPRESSION: Respiratory failure, mostly due to metabolic acidosis (improved), presumed sepsis, shock, hypothermia, hypotension, history of dementia, history congestive heart failure, history of coronary artery disease, history of hypertension, possible acute on chronic renal failure, significant lactic acidemia, protein-calorie malnutrition, and profound leukocytosis. PLAN BIPAP likely can dc monitor acid base exchange IV antibiotics check cultures maintain blood pressure with pressors as needed support clinically ICU care needed for now with hemodynamic instability discussed with all close follow up on all parameters medications/laboratory data/nursing notes/ICU care reviewed in detail note reviewed and edited care discussed with RN and RT ICU time spent 35 minutes Critical Care - Subjective Interval Events: care noted and reviewed NAD now on low flow oxygen off BIPAP ROS Limited/Unobtainable: Yes EKG Rhythm: Sinus Rhythm Residuals: minimal Tube Feeding Tolerated: yes I&O: Intake and Output 06/29/16 06/30/16 19:00 07:00 Intake Total 1727.48 ml 1769.96 ml Output Total 3180 ml 1050 ml Balance -1452.52 ml 719.96 ml IV Total 1727.48 ml 1769.96 ml Output Urine Total 3180 ml 1050 ml # Bowel Movements 4 5 Critical Care - Objective ET-Tube: 8.0 ET Position: 24 Last 24 Hour Vital Signs Date Time Temp Pulse Resp B/P Pulse Ox O2 Delivery O2 Flow Rate FiO2 06/30/16 08:01 94/54 06/30/16 06:45 89 18 89/60 97 Room Air 06/30/16 06:30 90 18 90/61 97 Room Air 06/30/16 06:15 91 17 100/61 97 Room Air 06/30/16 06:00 92 17 99/63 97 Room Air 06/30/16 05:45 88 16 107/63 97 Room Air 06/30/16 05:30 85 16 92/52 97 Room Air 1.0 06/30/16 05:15 69 16 91/37 98 Nasal Cannula 1.0 06/30/16 05:00 74 14 90/38 97 Nasal Cannula 1.0 06/30/16 04:45 72 14 76/38 97 Nasal Cannula 1.0 06/30/16 04:30 70 15 94/46 97 Nasal Cannula 1.0 06/30/16 04:15 73 16 90/45 98 Nasal Cannula 1.0 06/30/16 04:00 97 06/30/16 04:00 97.8 72 21 82/34 98 Nasal Cannula 1.0 06/30/16 03:45 71 20 92/44 98 Nasal Cannula 2.0 06/30/16 03:30 73 20 81/53 98 Nasal Cannula 2.0 06/30/16 03:15 70 20 90/46 98 Nasal Cannula 2.0 06/30/16 03:00 71 20 85/46 98 Nasal Cannula 2.0 06/30/16 02:30 69 20 81/46 98 Nasal Cannula 2.0 06/30/16 02:15 73 17 105/48 98 Nasal Cannula 2.0 06/30/16 02:00 74 17 91/39 97 Nasal Cannula 2.0 06/30/16 01:45 76 14 76/35 97 Nasal Cannula 2.0 06/30/16 01:30 78 13 86/35 97 Nasal Cannula 2.0 06/30/16 01:15 83 16 86/58 97 Nasal Cannula 2.0 06/30/16 01:00 88 16 98/54 98 Nasal Cannula 3.0 06/30/16 00:45 73 20 98/45 98 Nasal Cannula 3.0 06/30/16 00:30 74 20 97/50 98 Nasal Cannula 3.0 06/30/16 00:15 75 20 95/48 98 Nasal Cannula 3.0 06/30/16 00:00 91 06/30/16 00:00 97.6 77 18 98/48 98 Nasal Cannula 3.0 06/29/16 23:45 77 22 92/50 98 Nasal Cannula 3.0 06/29/16 23:30 78 24 97/59 98 Nasal Cannula 3.0 06/29/16 23:00 78 24 97/59 98 Nasal Cannula 3.0 06/29/16 23:00 97/59 06/29/16 22:45 80 24 97/59 98 Nasal Cannula 3.0 06/29/16 22:30 82 24 90/49 98 Nasal Cannula 3.0 06/29/16 22:15 84 24 70/55 98 Nasal Cannula 3.0 06/29/16 22:03 82 24 80/43 98 Nasal Cannula 3.0 06/29/16 22:00 80/43 06/29/16 21:45 81 24 90/33 98 Nasal Cannula 3.0 06/29/16 21:30 77 24 89/33 98 Nasal Cannula 3.0 06/29/16 21:15 75 24 114/68 98 Nasal Cannula 3.0 06/29/16 21:00 73 24 123/73 98 Nasal Cannula 3.0 06/29/16 21:00 123/73 06/29/16 20:45 79 20 115/50 98 Nasal Cannula 3.0 06/29/16 20:30 79 20 115/50 98 Nasal Cannula 3.0 06/29/16 20:15 74 19 109/53 98 Nasal Cannula 3.0 06/29/16 20:00 77 06/29/16 20:00 121/51 06/29/16 20:00 97.2 77 21 121/56 98 Nasal Cannula 3.0 06/29/16 19:45 82 23 121/51 98 Nasal Cannula 3.0 06/29/16 19:30 78 23 105/61 98 Nasal Cannula 3.0 06/29/16 19:20 Nasal Cannula 3.0 32 06/29/16 19:19 97 Nasal Cannula 3.0 32 06/29/16 19:15 76 23 111/56 98 Nasal Cannula 3.0 06/29/16 19:00 77/98 06/29/16 19:00 77 23 114/59 98 Nasal Cannula 3.0 06/29/16 18:45 78 21 106/68 98 Nasal Cannula 3.0 06/29/16 18:30 78 21 106/68 98 Nasal Cannula 3.0 06/29/16 18:15 78 20 108/50 98 Nasal Cannula 3.0 06/29/16 18:00 69 12 115/57 98 Nasal Cannula 3.0 06/29/16 18:00 78/98 06/29/16 17:45 78 12 115/57 98 Nasal Cannula 3.0 06/29/16 17:30 68 12 130/52 98 Nasal Cannula 3.0 06/29/16 17:21 99 3.0 32 06/29/16 17:15 75 12 114/53 98 Nasal Cannula 3.0 06/29/16 17:00 76 15 128/71 100 Nasal Cannula 3.0 06/29/16 17:00 128/71 06/29/16 16:45 76 14 128/71 99 Nasal Cannula 3.0 1/16/17 16:30 75 15 127/64 100 Nasal Cannula 3.0 06/29/16 16:15 71 13 110/50 100 Nasal Cannula 3.0 06/29/16 16:14 71 06/29/16 16:00 97.4 71 14 111/58 100 Nasal Cannula 3.0 06/29/16 16:00 111/58 06/29/16 15:45 75 16 111/58 100 Nasal Cannula 3.0 06/29/16 15:30 78 16 113/57 100 Nasal Cannula 3.0 06/29/16 15:15 70 11 97/82 100 Nasal Cannula 3.0 06/29/16 15:00 68 17 118/48 99 Nasal Cannula 3.0 06/29/16 14:57 100 3.0 32 06/29/16 14:45 84 17 102/50 100 Nasal Cannula 3.0 06/29/16 14:30 86 16 110/74 100 Nasal Cannula 3.0 06/29/16 14:15 82 14 142/90 100 Nasal Cannula 3.0 06/29/16 14:00 87 13 135/93 100 Nasal Cannula 3.0 06/29/16 13:45 76 13 132/71 100 Nasal Cannula 3.0 06/29/16 13:30 91 18 113/81 100 Nasal Cannula 3.0 06/29/16 13:17 100 3.0 32 06/29/16 13:15 91 16 125/71 100 Nasal Cannula 3.0 06/29/16 13:00 76 15 104/64 100 Nasal Cannula 3.0 06/29/16 12:45 92 16 137/79 100 Nasal Cannula 3.0 06/29/16 12:30 77 15 164/95 100 Nasal Cannula 3.0 06/29/16 12:15 74 17 124/62 100 Nasal Cannula 3.0 06/29/16 12:00 62 06/29/16 12:00 98.3 85 18 97/57 100 Nasal Cannula 3.0 06/29/16 11:53 97/57 06/29/16 11:45 65 20 165/71 100 Nasal Cannula 3.0 06/29/16 11:40 67 22 100 Full Face 30 06/29/16 11:30 65 15 105/53 99 Bi-pap 30 06/29/16 11:15 70 14 105/53 100 Bi-pap 30 06/29/16 11:00 65 13 122/60 100 Bi-pap 30 06/29/16 10:45 65 12 130/55 100 Bi-pap 30 06/29/16 10:30 65 13 99/52 100 Bi-pap 30 06/29/16 10:15 69 13 90/47 100 Bi-pap 30 06/29/16 10:00 65 16 114/56 100 Bi-pap 30 06/29/16 09:45 77 16 109/60 100 Bi-pap 30 06/29/16 09:30 90 17 99/53 100 Bi-pap 30 06/29/16 09:15 73 17 100/59 100 Bi-pap 30 06/29/16 09:07 67 23 100 Full Face 30 Labs: Labs Test 06/27/16 13:40 06/27/16 14:35 06/27/16 15:00 06/27/16 22:25 White Blood Count 22.6 K/UL (4.8-10.8) Red Blood Count 4.57 M/UL (4.20-5.40) Hemoglobin 13.6 G/DL (12.0-16.0) Hematocrit 43.4 % (37.0-47.0) Mean Corpuscular Volume 95 FL (80-99) Mean Corpuscular Hemoglobin 29.8 PG (27.0-31.0) Mean Corpuscular Hemoglobin Concent 31.4 G/DL (32.0-36.0) Red Cell Distribution Width 15.2 % (11.6-14.8) Platelet Count 266 K/UL (150-450) Mean Platelet Volume 10.6 FL (6.5-10.1) Neutrophils (%) (Auto) % (45.0-75.0) Lymphocytes (%) (Auto) % (20.0-45.0) Monocytes (%) (Auto) % (1.0-10.0) Eosinophils (%) (Auto) % (0.0-3.0) Basophils (%) (Auto) % (0.0-2.0) Differential Total Cells Counted 100 Neutrophils % (Manual) 71 % (45-75) Lymphocytes % (Manual) 24 % (20-45) Monocytes % (Manual) 2 % (1-10) Eosinophils % (Manual) 0 % (0-3) Basophils % (Manual) 0 % (0-2) Band Neutrophils 3 % (0-8) Platelet Estimate Adequate Platelet Morphology Normal Red Blood Cell Morphology Normal Sodium Level 157 mEQ/L (135-145) Potassium Level 2.7 mEQ/L (3.4-4.9) Chloride Level 128 mEQ/L (98-107) Carbon Dioxide Level 8 mEQ/L (20-30) Anion Gap 21 (5-15) Blood Urea Nitrogen 55 mg/dL (7-23) Creatinine 2.6 mg/dL (0.5-0.9) Estimat Glomerular Filtration Rate mL/min (>60) Glucose Level 61 mg/dL (74-106) Calcium Level 5.4 mg/dL (8.6-10.2) Total Bilirubin 0.2 mg/dL (0.0-1.2) Aspartate Amino Transf (AST/SGOT) 10 U/L (5-40) Alanine Aminotransferase (ALT/SGPT) 5 U/L (3-33) Alkaline Phosphatase 46 U/L (35-104) Total Creatine Kinase 235 U/L (26-140) Creatine Kinase MB 4.7 ng/mL (< 3.8) Creatine Kinase MB Relative Index 2.0 Troponin I < 0.30 ng/mL (<=0.30) Total Protein 4.7 g/dL (6.6-8.7) Albumin 1.7 g/dL (3.5-5.2) Globulin 3.0 g/dL Albumin/Globulin Ratio 0.5 (1.0-2.7) Lactic Acid Level 3.10 mmol/L (0.66-2.22) Urine Color Yellow Urine Appearance Turbid Urine pH 6 (4.5-8.0) Urine Specific [place] 1.015 (1.005-1.035) Urine Protein 4+ (NEGATIVE) Urine Glucose (UA) Negative (NEGATIVE) Urine Ketones Negative (NEGATIVE) Urine Occult Blood 4+ (NEGATIVE) Urine Nitrite Positive (NEGATIVE) Urine Bilirubin Negative (NEGATIVE) Urine Urobilinogen Normal MG/DL (0.0-1.0) Urine Leukocyte Esterase 3+ (NEGATIVE) Urine RBC Tntc /HPF (0 - 2) Urine WBC 15-20 /HPF (0 - 2) Urine Squamous Epithelial Cells Few /LPF (NONE/OCC) Urine Bacteria Moderate /HPF (NONE) Arterial Blood pH 7.367 (7.350-7.450) Arterial Blood Partial Pressure CO2 18.4 mmHg (35.0-45.0) Arterial Blood Partial Pressure O2 552.7 mmHg (75.0-100.0) Arterial Blood HCO3 10.3 mmol/L (22.0-26.0) Arterial Blood Oxygen Saturation 99.6 % (92.0-98.0) Arterial Blood Base Excess -12.4 Pool Test Positive Test 06/28/16 05:20 06/28/16 09:30 06/28/16 13:10 06/28/16 13:15 White Blood Count 32.4 K/UL (4.8-10.8) Red Blood Count 4.42 M/UL (4.20-5.40) Hemoglobin 13.0 G/DL (12.0-16.0) Hematocrit 41.4 % (37.0-47.0) Mean Corpuscular Volume 94 FL (80-99) Mean Corpuscular Hemoglobin 29.4 PG (27.0-31.0) Mean Corpuscular Hemoglobin Concent 31.5 G/DL (32.0-36.0) Red Cell Distribution Width 15.0 % (11.6-14.8) Platelet Count 245 K/UL (150-450) Mean Platelet Volume 11.1 FL (6.5-10.1) Neutrophils (%) (Auto) % (45.0-75.0) Lymphocytes (%) (Auto) % (20.0-45.0) Monocytes (%) (Auto) % (1.0-10.0) Eosinophils (%) (Auto) % (0.0-3.0) Basophils (%) (Auto) % (0.0-2.0) Differential Total Cells Counted 100 Neutrophils % (Manual) 60 % (45-75) Lymphocytes % (Manual) 25 % (20-45) Monocytes % (Manual) 6 % (1-10) Eosinophils % (Manual) 0 % (0-3) Basophils % (Manual) 0 % (0-2) Band Neutrophils 9 % (0-8) Platelet Estimate Adequate Platelet Morphology Normal Hypochromasia 1+ Anisocytosis 1+ Sodium Level 148 mEQ/L (135-145) Potassium Level 5.2 mEQ/L (3.4-4.9) Chloride Level 111 mEQ/L (98-107) Carbon Dioxide Level 12 mEQ/L (20-30) Anion Gap 25 (5-15) Blood Urea Nitrogen 84 mg/dL (7-23) Creatinine 4.6 mg/dL (0.5-0.9) Estimat Glomerular Filtration Rate mL/min (>60) Glucose Level 132 mg/dL (74-106) Lactic Acid Level 2.00 mmol/L (0.66-2.22) 1.20 mmol/L (0.66-2.22) Calcium Level 9.8 mg/dL (8.6-10.2) Magnesium Level 2.7 mg/dL (1.7-2.5) Total Bilirubin 0.3 mg/dL (0.0-1.2) Aspartate Amino Transf (AST/SGOT) 26 U/L (5-40) Alanine Aminotransferase (ALT/SGPT) 14 U/L (3-33) Alkaline Phosphatase 76 U/L (35-104) Troponin I < 0.30 ng/mL (<=0.30) Total Protein 7.6 g/dL (6.6-8.7) Albumin 3.2 g/dL (3.5-5.2) Globulin 4.4 g/dL Albumin/Globulin Ratio 0.7 (1.0-2.7) Thyroid Stimulating Hormone (TSH) 0.095 uIU/mL (0.300-4.500) Random Vancomycin Level 7.4 ug/mL Urine Random Sodium 54 mmol/L Urine Creatinine 62.5 mg/dL Arterial Blood pH 7.367 (7.350-7.450) Arterial Blood Partial Pressure CO2 17.0 mmHg (35.0-45.0) Arterial Blood Partial Pressure O2 175.0 mmHg (75.0-100.0) Arterial Blood HCO3 9.5 mmol/L (22.0-26.0) Arterial Blood Oxygen Saturation 99.0 % (92.0-98.0) Arterial Blood Base Excess -13.4 Pool Test Positive Test 06/29/16 06:00 06/29/16 09:38 06/29/16 15:14 06/30/16 04:15 Sodium Level 147 mEQ/L (135-145) 141 mEQ/L (135-145) Potassium Level 3.3 mEQ/L (3.4-4.9) 3.6 mEQ/L (3.4-4.9) Chloride Level 110 mEQ/L (98-107) 107 mEQ/L (98-107) Carbon Dioxide Level 19 mEQ/L (20-30) 23 mEQ/L (20-30) Anion Gap 18 (5-15) 11 (5-15) Blood Urea Nitrogen 47 mg/dL (7-23) 24 mg/dL (7-23) Creatinine 2.7 mg/dL (0.5-0.9) 1.6 mg/dL (0.5-0.9) Estimat Glomerular Filtration Rate mL/min (>60) mL/min (>60) Glucose Level 125 mg/dL (74-106) 110 mg/dL (74-106) Uric Acid 7.5 mg/dL (3.0-7.5) Calcium Level 8.0 mg/dL (8.6-10.2) 7.8 mg/dL (8.6-10.2) Total Bilirubin 0.3 mg/dL (0.0-1.2) 0.4 mg/dL (0.0-1.2) Aspartate Amino Transf (AST/SGOT) 23 U/L (5-40) 18 U/L (5-40) Alanine Aminotransferase (ALT/SGPT) 11 U/L (3-33) 10 U/L (3-33) Alkaline Phosphatase 65 U/L (35-104) 74 U/L (35-104) Total Creatine Kinase 352 U/L (26-140) Total Protein 5.8 g/dL (6.6-8.7) 5.5 g/dL (6.6-8.7) Albumin 2.2 g/dL (3.5-5.2) 2.1 g/dL (3.5-5.2) Globulin 3.6 g/dL 3.4 g/dL Albumin/Globulin Ratio 0.6 (1.0-2.7) 0.6 (1.0-2.7) Random Vancomycin Level 19.1 ug/mL Arterial Blood pH 7.545 (7.350-7.450) 7.549 (7.350-7.450) Arterial Blood Partial Pressure CO2 27.0 mmHg (35.0-45.0) 27.2 mmHg (35.0-45.0) Arterial Blood Partial Pressure O2 125.5 mmHg (75.0-100.0) 106.7 mmHg (75.0-100.0) Arterial Blood HCO3 22.8 mmol/L (22.0-26.0) 23.2 mmol/L (22.0-26.0) Arterial Blood Oxygen Saturation 98.1 % (92.0-98.0) 97.7 % (92.0-98.0) Arterial Blood Base Excess 1.2 1.6 Pool Test Positive Positive White Blood Count 14.9 K/UL (4.8-10.8) Red Blood Count 3.18 M/UL (4.20-5.40) Hemoglobin 9.8 G/DL (12.0-16.0) Hematocrit 28.7 % (37.0-47.0) Mean Corpuscular Volume 90 FL (80-99) Mean Corpuscular Hemoglobin 30.9 PG (27.0-31.0) Mean Corpuscular Hemoglobin Concent 34.2 G/DL (32.0-36.0) Red Cell Distribution Width 14.0 % (11.6-14.8) Platelet Count 152 K/UL (150-450) Mean Platelet Volume 11.3 FL (6.5-10.1) Neutrophils (%) (Auto) 53.0 % (45.0-75.0) Lymphocytes (%) (Auto) 30.6 % (20.0-45.0) Monocytes (%) (Auto) 6.5 % (1.0-10.0) Eosinophils (%) (Auto) 9.4 % (0.0-3.0) Basophils (%) (Auto) 0.6 % (0.0-2.0) Magnesium Level 1.4 mg/dL (1.7-2.5) Objective: GENERAL: A well-developed female, appears to be chronically ill. HEENT: Fairly negative. Pupils are sluggish. BiPAP off NECK: Supple. No jugular venous distention. LUNGS: improved breath sounds without rhonchi; Moderate air entry. without wheeze CARDIAC: S1 and S2. RRR without murmurs, rubs, or gallops. ABDOMEN: Soft, nontender, and nondistended. no HSM EXTREMITIES: No cyanosis or clubbing. No edema. NEUROLOGICAL: Grossly nonfocal. contracted and withdrawn Micro: Microbiology Date/Time Source Procedure Growth Status 06/27/16 14:40 Blood Blood Culture - Preliminary NO GROWTH AFTER 48 HOURS Resulted 06/27/16 14:35 Blood Blood Culture - Preliminary NO GROWTH AFTER 48 HOURS Resulted 06/27/16 15:09 Nasal Nares MRSA Culture - Final NO METHICILLIN RESISTANT STAPH AUREUS... Complete 06/27/16 15:00 Urine,Clean Catch Urine Culture - Final Klebsiella Pneumoniae Complete MARCELO [place] Jun 30, 2016 09:07
--- NOTE | 2016-06-30 11:25 | Infectious Diseases Prog Note ---
Assessment/Plan Assessment/Plan antibiotics : ceftaroline A 1. ? endocarditis 2. klebsiella UTI 3. shock 4. respiratory failure 5. renal failure improving 6. leucocytosis improving P 1. continue ceftaroline 2. will follow up cultures 3. consider DARREN when stable Subjective ROS Limited/Unobtainable: Yes Allergies: Coded Allergies: No Known Allergies (Unverified , 04/18/12) Objective Vital Signs Last 24 Hour Vital Signs Date Time Temp Pulse Resp B/P Pulse Ox O2 Delivery O2 Flow Rate FiO2 06/30/16 11:00 72 15 86/39 97 Room Air 06/30/16 10:45 72 16 100/42 97 Room Air 06/30/16 10:30 80 16 89/50 95 Room Air 06/30/16 10:15 73 19 81/39 96 Room Air 06/30/16 10:00 68 19 98/42 96 Room Air 06/30/16 09:45 71 18 87/56 96 Room Air 06/30/16 09:30 73 18 80/40 95 Room Air 06/30/16 09:15 103 18 111/55 97 Room Air 06/30/16 09:00 108 18 114/61 97 Room Air 06/30/16 08:45 98 16 91/61 98 Room Air 06/30/16 08:30 98 15 100/65 98 Room Air 06/30/16 08:15 113 16 103/62 98 Room Air 06/30/16 08:01 94/54 06/30/16 08:00 98.0 113 17 94/54 99 Room Air 06/30/16 08:00 110 06/30/16 07:45 97 15 93/64 98 Room Air 06/30/16 07:30 100 14 91/73 98 Room Air 06/30/16 07:15 119 15 85/66 99 Room Air 06/30/16 06:45 89 18 89/60 97 Room Air 06/30/16 06:30 90 18 90/61 97 Room Air 06/30/16 06:15 91 17 100/61 97 Room Air 06/30/16 06:00 92 17 99/63 97 Room Air 06/30/16 05:45 88 16 107/63 97 Room Air 06/30/16 05:30 85 16 92/52 97 Room Air 1.0 06/30/16 05:15 69 16 91/37 98 Nasal Cannula 1.0 06/30/16 05:00 74 14 90/38 97 Nasal Cannula 1.0 06/30/16 04:45 72 14 76/38 97 Nasal Cannula 1.0 06/30/16 04:30 70 15 94/46 97 Nasal Cannula 1.0 06/30/16 04:15 73 16 90/45 98 Nasal Cannula 1.0 06/30/16 04:00 97 06/30/16 04:00 97.8 72 21 82/34 98 Nasal Cannula 1.0 06/30/16 03:45 71 20 92/44 98 Nasal Cannula 2.0 06/30/16 03:30 73 20 81/53 98 Nasal Cannula 2.0 06/30/16 03:15 70 20 90/46 98 Nasal Cannula 2.0 06/30/16 03:00 71 20 85/46 98 Nasal Cannula 2.0 06/30/16 02:30 69 20 81/46 98 Nasal Cannula 2.0 06/30/16 02:15 73 17 105/48 98 Nasal Cannula 2.0 06/30/16 02:00 74 17 91/39 97 Nasal Cannula 2.0 06/30/16 01:45 76 14 76/35 97 Nasal Cannula 2.0 06/30/16 01:30 78 13 86/35 97 Nasal Cannula 2.0 06/30/16 01:15 83 16 86/58 97 Nasal Cannula 2.0 06/30/16 01:00 88 16 98/54 98 Nasal Cannula 3.0 06/30/16 00:45 73 20 98/45 98 Nasal Cannula 3.0 06/30/16 00:30 74 20 97/50 98 Nasal Cannula 3.0 06/30/16 00:15 75 20 95/48 98 Nasal Cannula 3.0 06/30/16 00:00 91 06/30/16 00:00 97.6 77 18 98/48 98 Nasal Cannula 3.0 06/29/16 23:45 77 22 92/50 98 Nasal Cannula 3.0 06/29/16 23:30 78 24 97/59 98 Nasal Cannula 3.0 06/29/16 23:00 78 24 97/59 98 Nasal Cannula 3.0 06/29/16 23:00 97/59 06/29/16 22:45 80 24 97/59 98 Nasal Cannula 3.0 06/29/16 22:30 82 24 90/49 98 Nasal Cannula 3.0 06/29/16 22:15 84 24 70/55 98 Nasal Cannula 3.0 06/29/16 22:03 82 24 80/43 98 Nasal Cannula 3.0 06/29/16 22:00 80/43 06/29/16 21:45 81 24 90/33 98 Nasal Cannula 3.0 06/29/16 21:30 77 24 89/33 98 Nasal Cannula 3.0 06/29/16 21:15 75 24 114/68 98 Nasal Cannula 3.0 06/29/16 21:00 73 24 123/73 98 Nasal Cannula 3.0 06/29/16 21:00 123/73 06/29/16 20:45 79 20 115/50 98 Nasal Cannula 3.0 06/29/16 20:30 79 20 115/50 98 Nasal Cannula 3.0 06/29/16 20:15 74 19 109/53 98 Nasal Cannula 3.0 06/29/16 20:00 77 06/29/16 20:00 121/51 06/29/16 20:00 97.2 77 21 121/56 98 Nasal Cannula 3.0 06/29/16 19:45 82 23 121/51 98 Nasal Cannula 3.0 06/29/16 19:30 78 23 105/61 98 Nasal Cannula 3.0 06/29/16 19:20 Nasal Cannula 3.0 32 06/29/16 19:19 97 Nasal Cannula 3.0 32 06/29/16 19:15 76 23 111/56 98 Nasal Cannula 3.0 06/29/16 19:00 77/98 06/29/16 19:00 77 23 114/59 98 Nasal Cannula 3.0 06/29/16 18:45 78 21 106/68 98 Nasal Cannula 3.0 06/29/16 18:30 78 21 106/68 98 Nasal Cannula 3.0 06/29/16 18:15 78 20 108/50 98 Nasal Cannula 3.0 06/29/16 18:00 69 12 115/57 98 Nasal Cannula 3.0 06/29/16 18:00 78/98 06/29/16 17:45 78 12 115/57 98 Nasal Cannula 3.0 06/29/16 17:30 68 12 130/52 98 Nasal Cannula 3.0 06/29/16 17:21 99 3.0 32 06/29/16 17:15 75 12 114/53 98 Nasal Cannula 3.0 06/29/16 17:00 76 15 128/71 100 Nasal Cannula 3.0 06/29/16 17:00 128/71 06/29/16 16:45 76 14 128/71 99 Nasal Cannula 3.0 06/29/16 16:30 75 15 127/64 100 Nasal Cannula 3.0 06/29/16 16:15 71 13 110/50 100 Nasal Cannula 3.0 06/29/16 16:14 71 06/29/16 16:00 97.4 71 14 111/58 100 Nasal Cannula 3.0 06/29/16 16:00 111/58 06/29/16 15:45 75 16 111/58 100 Nasal Cannula 3.0 06/29/16 15:30 78 16 113/57 100 Nasal Cannula 3.0 06/29/16 15:15 70 11 97/82 100 Nasal Cannula 3.0 06/29/16 15:00 68 17 118/48 99 Nasal Cannula 3.0 06/29/16 14:57 100 3.0 32 06/29/16 14:45 84 17 102/50 100 Nasal Cannula 3.0 06/29/16 14:30 86 16 110/74 100 Nasal Cannula 3.0 06/29/16 14:15 82 14 142/90 100 Nasal Cannula 3.0 06/29/16 14:00 87 13 135/93 100 Nasal Cannula 3.0 06/29/16 13:45 76 13 132/71 100 Nasal Cannula 3.0 06/29/16 13:30 91 18 113/81 100 Nasal Cannula 3.0 06/29/16 13:17 100 3.0 32 06/29/16 13:15 91 16 125/71 100 Nasal Cannula 3.0 06/29/16 13:00 76 15 104/64 100 Nasal Cannula 3.0 06/29/16 12:45 92 16 137/79 100 Nasal Cannula 3.0 06/29/16 12:30 77 15 164/95 100 Nasal Cannula 3.0 06/29/16 12:15 74 17 124/62 100 Nasal Cannula 3.0 06/29/16 12:00 62 06/29/16 12:00 98.3 85 18 97/57 100 Nasal Cannula 3.0 1/16/17 11:53 97/57 06/29/16 11:45 65 20 165/71 100 Nasal Cannula 3.0 06/29/16 11:40 67 22 100 Full Face 30 06/29/16 11:30 65 15 105/53 99 Bi-pap 30 Height (Feet): 5 Height (Inches): 3.00 Weight (Pounds): 110 Respiratory/Chest: lungs clear Cardiovascular: normal rate, regular rhythm, no gallop/murmur Abdomen: soft, non tender Extremities: no edema, other - right IJ catheter Microbiology Date/Time Source Procedure Growth Status 06/27/16 14:40 Blood Blood Culture - Preliminary NO GROWTH AFTER 48 HOURS Resulted 06/27/16 14:35 Blood Blood Culture - Preliminary NO GROWTH AFTER 48 HOURS Resulted 06/27/16 15:09 Nasal Nares MRSA Culture - Final NO METHICILLIN RESISTANT STAPH AUREUS... Complete 06/27/16 15:00 Urine,Clean Catch Urine Culture - Final Klebsiella Pneumoniae Complete Laboratory Tests Test 06/29/16 15:14 06/30/16 04:15 Arterial Blood pH 7.549 (7.350-7.450) Arterial Blood Partial Pressure CO2 27.2 mmHg (35.0-45.0) L Arterial Blood Partial Pressure O2 106.7 mmHg (75.0-100.0) H Arterial Blood HCO3 23.2 mmol/L (22.0-26.0) Arterial Blood Oxygen Saturation 97.7 % (92.0-98.0) Arterial Blood Base Excess 1.6 Pool Test Positive White Blood Count 14.9 K/UL (4.8-10.8) H Red Blood Count 3.18 M/UL (4.20-5.40) L Hemoglobin 9.8 G/DL (12.0-16.0) L Hematocrit 28.7 % (37.0-47.0) L Mean Corpuscular Volume 90 FL (80-99) Mean Corpuscular Hemoglobin 30.9 PG (27.0-31.0) Mean Corpuscular Hemoglobin Concent 34.2 G/DL (32.0-36.0) Red Cell Distribution Width 14.0 % (11.6-14.8) Platelet Count 152 K/UL (150-450) Mean Platelet Volume 11.3 FL (6.5-10.1) H Neutrophils (%) (Auto) 53.0 % (45.0-75.0) Lymphocytes (%) (Auto) 30.6 % (20.0-45.0) Monocytes (%) (Auto) 6.5 % (1.0-10.0) Eosinophils (%) (Auto) 9.4 % (0.0-3.0) H Basophils (%) (Auto) 0.6 % (0.0-2.0) Sodium Level 141 mEQ/L (135-145) Potassium Level 3.6 mEQ/L (3.4-4.9) Chloride Level 107 mEQ/L (98-107) Carbon Dioxide Level 23 mEQ/L (20-30) Anion Gap 11 (5-15) Blood Urea Nitrogen 24 mg/dL (7-23) H Creatinine 1.6 mg/dL (0.5-0.9) H Estimat Glomerular Filtration Rate mL/min (>60) Glucose Level 110 mg/dL (74-106) H Calcium Level 7.8 mg/dL (8.6-10.2) L Magnesium Level 1.4 mg/dL (1.7-2.5) L Total Bilirubin 0.4 mg/dL (0.0-1.2) Aspartate Amino Transf (AST/SGOT) 18 U/L (5-40) Alanine Aminotransferase (ALT/SGPT) 10 U/L (3-33) Alkaline Phosphatase 74 U/L (35-104) Total Protein 5.5 g/dL (6.6-8.7) L Albumin 2.1 g/dL (3.5-5.2) L Globulin 3.4 g/dL Albumin/Globulin Ratio 0.6 (1.0-2.7) L DAMIAN GUZMAN Jun 30, 2016 11:25
--- NOTE | 2016-06-30 13:29 | Nephrology Progress Note ---
Assessment/Plan Problem List: (1) Pyelonephritis (2) Acute hypernatremia (3) Dehydration (4) Sepsis (5) MARCELLE (acute kidney injury) (6) Septic shock Plan still on levophed and iv rehydration, lab trend better, iv adjusted,continuing rx klebsiella uti Subjective ROS Limited/Unobtainable: Yes Objective Objective Last 24 Hour Vital Signs Date Time Temp Pulse Resp B/P Pulse Ox O2 Delivery O2 Flow Rate FiO2 06/30/16 12:45 66 12 80/36 96 Room Air 06/30/16 12:30 66 22 72/46 95 Room Air 06/30/16 12:17 59 06/30/16 12:15 62 14 114/42 97 Room Air 06/30/16 12:00 98.7 63 19 100/45 97 Room Air 06/30/16 11:46 63 22 96/40 97 Room Air 06/30/16 11:30 65 19 102/45 96 Room Air 06/30/16 11:15 67 15 80/35 96 Room Air 06/30/16 11:00 72 15 86/39 97 Room Air 06/30/16 10:45 72 16 100/42 97 Room Air 06/30/16 10:30 80 16 89/50 95 Room Air 06/30/16 10:15 73 19 81/39 96 Room Air 06/30/16 10:00 68 19 98/42 96 Room Air 06/30/16 09:45 71 18 87/56 96 Room Air 06/30/16 09:30 73 18 80/40 95 Room Air 06/30/16 09:15 103 18 111/55 97 Room Air 06/30/16 09:00 108 18 114/61 97 Room Air 06/30/16 08:45 98 16 91/61 98 Room Air 06/30/16 08:30 98 15 100/65 98 Room Air 06/30/16 08:15 113 16 103/62 98 Room Air 06/30/16 08:01 94/54 06/30/16 08:00 98.0 113 17 94/54 99 Room Air 06/30/16 08:00 110 06/30/16 07:45 97 15 93/64 98 Room Air 06/30/16 07:30 100 14 91/73 98 Room Air 06/30/16 07:15 119 15 85/66 99 Room Air 06/30/16 06:45 89 18 89/60 97 Room Air 06/30/16 06:30 90 18 90/61 97 Room Air 06/30/16 06:15 91 17 100/61 97 Room Air 06/30/16 06:00 92 17 99/63 97 Room Air 06/30/16 05:45 88 16 107/63 97 Room Air 06/30/16 05:30 85 16 92/52 97 Room Air 1.0 06/30/16 05:15 69 16 91/37 98 Nasal Cannula 1.0 06/30/16 05:00 74 14 90/38 97 Nasal Cannula 1.0 06/30/16 04:45 72 14 76/38 97 Nasal Cannula 1.0 06/30/16 04:30 70 15 94/46 97 Nasal Cannula 1.0 06/30/16 04:15 73 16 90/45 98 Nasal Cannula 1.0 06/30/16 04:00 97 06/30/16 04:00 97.8 72 21 82/34 98 Nasal Cannula 1.0 06/30/16 03:45 71 20 92/44 98 Nasal Cannula 2.0 06/30/16 03:30 73 20 81/53 98 Nasal Cannula 2.0 06/30/16 03:15 70 20 90/46 98 Nasal Cannula 2.0 06/30/16 03:00 71 20 85/46 98 Nasal Cannula 2.0 06/30/16 02:30 69 20 81/46 98 Nasal Cannula 2.0 06/30/16 02:15 73 17 105/48 98 Nasal Cannula 2.0 06/30/16 02:00 74 17 91/39 97 Nasal Cannula 2.0 06/30/16 01:45 76 14 76/35 97 Nasal Cannula 2.0 06/30/16 01:30 78 13 86/35 97 Nasal Cannula 2.0 06/30/16 01:15 83 16 86/58 97 Nasal Cannula 2.0 06/30/16 01:00 88 16 98/54 98 Nasal Cannula 3.0 06/30/16 00:45 73 20 98/45 98 Nasal Cannula 3.0 06/30/16 00:30 74 20 97/50 98 Nasal Cannula 3.0 06/30/16 00:15 75 20 95/48 98 Nasal Cannula 3.0 06/30/16 00:00 91 06/30/16 00:00 97.6 77 18 98/48 98 Nasal Cannula 3.0 06/29/16 23:45 77 22 92/50 98 Nasal Cannula 3.0 06/29/16 23:30 78 24 97/59 98 Nasal Cannula 3.0 06/29/16 23:00 78 24 97/59 98 Nasal Cannula 3.0 06/29/16 23:00 97/59 06/29/16 22:45 80 24 97/59 98 Nasal Cannula 3.0 06/29/16 22:30 82 24 90/49 98 Nasal Cannula 3.0 06/29/16 22:15 84 24 70/55 98 Nasal Cannula 3.0 06/29/16 22:03 82 24 80/43 98 Nasal Cannula 3.0 06/29/16 22:00 80/43 06/29/16 21:45 81 24 90/33 98 Nasal Cannula 3.0 06/29/16 21:30 77 24 89/33 98 Nasal Cannula 3.0 06/29/16 21:15 75 24 114/68 98 Nasal Cannula 3.0 06/29/16 21:00 73 24 123/73 98 Nasal Cannula 3.0 06/29/16 21:00 123/73 06/29/16 20:45 79 20 115/50 98 Nasal Cannula 3.0 06/29/16 20:30 79 20 115/50 98 Nasal Cannula 3.0 06/29/16 20:15 74 19 109/53 98 Nasal Cannula 3.0 06/29/16 20:00 77 06/29/16 20:00 121/51 06/29/16 20:00 97.2 77 21 121/56 98 Nasal Cannula 3.0 06/29/16 19:45 82 23 121/51 98 Nasal Cannula 3.0 06/29/16 19:30 78 23 105/61 98 Nasal Cannula 3.0 06/29/16 19:20 Nasal Cannula 3.0 32 06/29/16 19:19 97 Nasal Cannula 3.0 32 06/29/16 19:15 76 23 111/56 98 Nasal Cannula 3.0 06/29/16 19:00 77/98 06/29/16 19:00 77 23 114/59 98 Nasal Cannula 3.0 06/29/16 18:45 78 21 106/68 98 Nasal Cannula 3.0 06/29/16 18:30 78 21 106/68 98 Nasal Cannula 3.0 06/29/16 18:15 78 20 108/50 98 Nasal Cannula 3.0 06/29/16 18:00 69 12 115/57 98 Nasal Cannula 3.0 06/29/16 18:00 78/98 06/29/16 17:45 78 12 115/57 98 Nasal Cannula 3.0 06/29/16 17:30 68 12 130/52 98 Nasal Cannula 3.0 06/29/16 17:21 99 3.0 32 06/29/16 17:15 75 12 114/53 98 Nasal Cannula 3.0 06/29/16 17:00 76 15 128/71 100 Nasal Cannula 3.0 06/29/16 17:00 128/71 06/29/16 16:45 76 14 128/71 99 Nasal Cannula 3.0 06/29/16 16:30 75 15 127/64 100 Nasal Cannula 3.0 06/29/16 16:15 71 13 110/50 100 Nasal Cannula 3.0 06/29/16 16:14 71 06/29/16 16:00 97.4 71 14 111/58 100 Nasal Cannula 3.0 06/29/16 16:00 111/58 06/29/16 15:45 75 16 111/58 100 Nasal Cannula 3.0 06/29/16 15:30 78 16 113/57 100 Nasal Cannula 3.0 06/29/16 15:15 70 11 97/82 100 Nasal Cannula 3.0 06/29/16 15:00 68 17 118/48 99 Nasal Cannula 3.0 06/29/16 14:57 100 3.0 32 06/29/16 14:45 84 17 102/50 100 Nasal Cannula 3.0 06/29/16 14:30 86 16 110/74 100 Nasal Cannula 3.0 06/29/16 14:15 82 14 142/90 100 Nasal Cannula 3.0 06/29/16 14:00 87 13 135/93 100 Nasal Cannula 3.0 06/29/16 13:45 76 13 132/71 100 Nasal Cannula 3.0 06/29/16 13:30 91 18 113/81 100 Nasal Cannula 3.0 Intake and Output 06/29/16 06/30/16 19:00 07:00 Intake Total 1727.48 ml 1769.96 ml Output Total 3180 ml 1050 ml Balance -1452.52 ml 719.96 ml IV Total 1727.48 ml 1769.96 ml Output Urine Total 3180 ml 1050 ml # Bowel Movements 4 5 Laboratory Tests 06/29/16 15:14: Arterial Blood pH 7.549H, Arterial Blood Partial Pressure CO2 27.2L, Arterial Blood Partial Pressure O2 106.7H, Arterial Blood HCO3 23.2, Arterial Blood Oxygen Saturation 97.7, Arterial Blood Base Excess 1.6, Pool Test Positive 06/30/16 04:15: White Blood Count 14.9H, Red Blood Count 3.18L, Hemoglobin 9.8L, Hematocrit 28.7L, Mean Corpuscular Volume 90, Mean Corpuscular Hemoglobin 30.9, Mean Corpuscular Hemoglobin Concent 34.2, Red Cell Distribution Width 14.0, Platelet Count 152, Mean Platelet Volume 11.3H, Neutrophils (%) (Auto) 53.0, Lymphocytes (%) (Auto) 30.6, Monocytes (%) (Auto) 6.5, Eosinophils (%) (Auto) 9.4H, Basophils (%) (Auto) 0.6, Sodium Level 141, Potassium Level 3.6, Chloride Level 107, Carbon Dioxide Level 23, Anion Gap 11, Blood Urea Nitrogen 24H, Creatinine 1.6H, Estimat Glomerular Filtration Rate , Glucose Level 110H, Calcium Level 7.8L, Magnesium Level 1.4L, Total Bilirubin 0.4, Aspartate Amino Transf (AST/ SGOT) 18, Alanine Aminotransferase (ALT/SGPT) 10, Alkaline Phosphatase 74, Total Protein 5.5L, Albumin 2.1L, Globulin 3.4, Albumin/Globulin Ratio 0.6L Height (Feet): 5 Height (Inches): 3.00 Weight (Pounds): 110 General Appearance: confused EENT: normal ENT inspection Neck: normal alignment Cardiovascular: normal rate Respiratory/Chest: rhonchi - bilaterally Abdomen: non tender Neurologic: motor weakness JILL GASPAR Jun 30, 2016 13:29
[2016-06-30] MEDS ORDERED: CEFTAROLINE IVPB SCH (14:30)
[2016-06-30] MEDS ORDERED: NS IVPB SCH (14:30)
[2016-06-30] MEDS: DOPamine 400mg/250ml 250 ML IV SCH (20:13)
[2016-07-01] VITALS (56 sets, daily range): BP systolic 81–129; BP diastolic 38–78
[2016-07-01] MEDS: NS IVPB SCH ×2 (02:29→14:25)
[2016-07-01] MEDS: CEFTAROLINE IVPB SCH ×2 (02:29→14:25)
--- NOTE | 2016-07-01 04:17 | Progress Note ---
DATE: 06/30/2016 SUBJECTIVE: The patient remains in the intensive care unit in critical condition with guarded prognosis. The case was discussed with her family members who were made aware of her status. The patient's blood pressure remains marginal in the range of 89 to 100 systolic on pressor support. She is off of BiPAP at this time, but remains with p.r.n. use. OBJECTIVE: VITAL SIGNS: Afebrile, blood pressure 94/64, pulse 89, respiratory rate 18, monitored rhythm, sinus, with arrhythmia. HEENT: Temporal wasting. LUNGS: Bilateral breath sounds. No wheezing. CARDIAC: Regular rhythm and rate. Normal S1 and S2 without fourth heart sound. ABDOMEN: Soft. EXTREMITIES: Without edema. SKIN: Pictured in the chart. LABORATORY DATA: Urine culture is positive for Klebsiella pneumonia. White count 14.9 and hemoglobin 9.8. BUN is 24 and creatinine 1.6. Potassium 3.6 and magnesium 1.4. Albumin 2.1. IMPRESSION: 1. Severe sepsis with shock. 2. . 3. Hypomagnesemia. 4. Acute renal failure, improving. 5. Hypovolemia. 6. Dehydration. 7. Hypernatremia. 8. Ischemic cardiomyopathy. 9. Severe protein-calorie malnutrition. PLAN: 1. Continue efforts to taper off pressors. 2. Antibiotics per Infectious Disease transformation consultant. 3. Respiratory hygiene. 4. IV magnesium. 5. Maintain anti-platelet therapy. 6. We will start nutrition by NG-tube. Yohan Corbett M.D. DR: PARKER JOB#: [id number] CC:
[2016-07-01 05:14] LABS: BASOPHILS % (AUTO) 0.6 % (0.0-2.0); EOSINOPHILS % (AUTO) 11.8 % (0.0-3.0); LYMPHOCYTES % (AUTO) 34.5 % (20.0-45.0); MEAN CORPUSCULAR HEMOGLOBIN 30.1 PG (27.0-31.0); MEAN CORPUSCULAR HGB CONC 33.2 G/DL (32.0-36.0); MEAN CORPUSCULAR VOLUME 91 FL (80-99); MEAN PLATELET VOLUME 9.6 FL (6.5-10.1); MONOCYTES % (AUTO) 7.7 % (1.0-10.0); NEUTROPHILS % (AUTO) 45.4 % (45.0-75.0); PLATELET COUNT 124 K/UL (150-450); RED BLOOD COUNT 3.19 M/UL (4.20-5.40); RED CELL DISTRIBUTION WIDTH 14.6 % (11.6-14.8); WHITE BLOOD COUNT 10.7 K/UL (4.8-10.8)
[2016-07-01 05:35] LABS: ANION GAP 10 (5-15); CARBON DIOXIDE 19 mEQ/L (20-30); CHLORIDE 105 mEQ/L (98-107); CREATININE 1.3 mg/dL (0.5-0.9); HEMOLYSIS 4; SODIUM 134 mEQ/L (135-145)
[2016-07-01] MEDS: Levothyroxine 125mcg tab ORAL SCH (06:13)
[2016-07-01] MEDS: D5 1/2NS w/KCl 20mEq 1,000 ML IV SCH (06:13)
[2016-07-01] MEDS: Aspirin Baby 81mg ORAL SCH (08:26)
[2016-07-01] MEDS: Pantoprazole Inj IVP SCH (08:27)
[2016-07-01] MEDS: Multivitamin 5ml Liquid ORAL SCH (08:27)
--- NOTE | 2016-07-01 10:20 | General Progress Note ---
Assessment/Plan Problem List: (1) Hypothyroid ICD Codes: E03.9 - Hypothyroid SNOMED: 46623633 (2) Septic shock ICD Codes: A41.9 - Sepsis, unspecified organism; R65.21 - Severe sepsis with septic shock SNOMED: 40018992 (3) Acute renal failure ICD Codes: N17.9 - Acute kidney failure, unspecified SNOMED: 37569654 (4) Sepsis ICD Codes: A41.9 - Sepsis, unspecified organism SNOMED: 75147999 (5) Altered mental status ICD Codes: R41.82 - Altered mental status, unspecified SNOMED: 010421225 (6) Acute delirium ICD Codes: R41.0 - Acute delirium SNOMED: 1856217 (7) UTI (lower urinary tract infection) ICD Codes: N39.0 - UTI (lower urinary tract infection) SNOMED: 9267388 Status: stable, progressing Assessment/Plan wean pressors ivf adjusted dc bipap. wean o2 monitor abg abx per ID icu care until off pressors check swallow eval remains critical and guarded Subjective ROS Limited/Unobtainable: Yes Constitutional: Reports: malaise, weakness HEENT: Reports: no symptoms Cardiovascular: Reports: no symptoms Respiratory: Reports: cough Gastrointestinal/Abdominal: Reports: difficulty swallowing Genitourinary: Reports: no symptoms Neurologic/Psychiatric: Reports: pre-existing deficit Endocrine: Reports: no symptoms Hematologic/Lymphatic: Reports: anemia Allergies: Coded Allergies: No Known Allergies (Unverified , 04/18/12) All Systems: reviewed and negative except above Subjective doing better. better uop. on 1 mch levophed. now off bipap. labs/renal fxn improving. alert. confused at baseline. RN unable to place ngt. labs noted Objective Last 24 Hour Vital Signs Date Time Temp Pulse Resp B/P Pulse Ox O2 Delivery O2 Flow Rate FiO2 07/01/16 09:03 89 16 94/53 96 Room Air 07/01/16 08:49 79 07/01/16 08:45 83 14 92/57 96 Room Air 07/01/16 08:30 88 17 106/62 97 Room Air 07/01/16 08:15 79 14 105/59 95 Room Air 07/01/16 08:00 97.7 88 16 117/55 95 Room Air 07/01/16 07:45 74 13 100/75 95 Room Air 07/01/16 07:30 86 14 100/55 95 Room Air 07/01/16 07:15 72 19 94/45 98 Room Air 07/01/16 07:00 98 22 127/64 96 Room Air 07/01/16 06:45 107 20 129/61 96 Room Air 07/01/16 06:30 106 19 129/73 97 Room Air 07/01/16 06:15 99 19 128/64 97 Room Air 07/01/16 06:00 78 14 120/62 96 Room Air 07/01/16 05:45 77 14 112/66 96 Room Air 07/01/16 05:30 75 16 101/60 97 Room Air 07/01/16 05:15 79 15 95/78 97 Room Air 07/01/16 05:00 77 14 110/57 97 Room Air 07/01/16 05:00 110/57 07/01/16 04:45 70 13 108/64 97 Room Air 07/01/16 04:30 69 12 111/53 96 Room Air 07/01/16 04:15 73 13 104/54 96 Room Air 07/01/16 04:00 77 07/01/16 04:00 102/67 07/01/16 04:00 98.5 77 15 102/67 96 Room Air 07/01/16 03:45 75 14 112/52 96 Room Air 07/01/16 03:30 73 15 93/38 96 Room Air 07/01/16 03:15 71 13 109/50 97 Room Air 07/01/16 03:00 102/52 07/01/16 03:00 70 13 102/52 97 Room Air 07/01/16 02:45 69 15 106/50 96 Room Air 07/01/16 02:30 76 14 103/53 97 Room Air 07/01/16 02:15 71 12 101/52 96 Room Air 07/01/16 02:00 92/49 07/01/16 02:00 69 13 92/49 96 Room Air 07/01/16 01:45 67 13 99/49 97 Room Air 07/01/16 01:30 69 12 99/46 97 Room Air 07/01/16 01:15 70 13 93/69 97 Room Air 07/01/16 01:00 71 15 106/52 97 Room Air 07/01/16 01:00 106/52 1/18/17 00:45 70 14 94/47 97 Room Air 07/01/16 00:30 98.3 70 14 96/50 96 Room Air 07/01/16 00:15 72 12 104/57 96 Room Air 07/01/16 00:00 71 15 81/38 96 Room Air 07/01/16 00:00 81/38 07/01/16 00:00 71 06/30/16 23:45 70 15 94/44 96 Room Air 06/30/16 23:30 77 16 109/56 96 Room Air 06/30/16 23:02 91 19 97/43 96 Room Air 06/30/16 22:59 77/49 06/30/16 22:45 75 19 93/47 96 Room Air 06/30/16 22:30 72 20 84/41 96 Room Air 06/30/16 22:16 71 19 106/46 96 Room Air 06/30/16 22:00 68 19 99/51 96 Room Air 06/30/16 22:00 106/46 06/30/16 21:45 80 20 95/46 96 Room Air 06/30/16 21:30 84 20 86/44 96 Room Air 06/30/16 21:15 85 17 83/41 96 Room Air 06/30/16 21:00 81 17 94/58 97 Room Air 06/30/16 21:00 86/44 06/30/16 20:45 80 17 94/63 97 Room Air 06/30/16 20:30 83 17 91/49 97 Room Air 06/30/16 20:15 80 17 94/63 97 Room Air 06/30/16 20:00 98.1 83 16 101/59 97 Room Air 06/30/16 20:00 83 06/30/16 19:45 82 17 85/57 97 Room Air 06/30/16 19:31 76 16 102/55 97 Room Air 06/30/16 19:15 75 16 99/55 97 Room Air 06/30/16 19:02 96 Room Air 06/30/16 19:02 Room Air 06/30/16 19:00 74 13 95/58 97 Room Air 06/30/16 18:45 77 14 105/66 97 Room Air 06/30/16 18:30 77 16 99/53 97 Room Air 06/30/16 18:15 96 14 99/50 97 Room Air 06/30/16 18:00 98 17 108/57 97 Room Air 06/30/16 17:45 79 15 99/54 97 Room Air 06/30/16 17:30 76 18 86/66 97 Room Air 06/30/16 17:15 80 18 105/68 99 Room Air 06/30/16 17:00 78 18 93/68 99 Room Air 06/30/16 16:45 82 18 97/60 99 Room Air 06/30/16 16:30 80 18 91/40 99 Room Air 06/30/16 16:15 87 18 91/40 99 Room Air 06/30/16 16:00 98.1 86 18 80/44 99 Room Air 06/30/16 16:00 98 06/30/16 15:45 86 18 80/44 99 Room Air 06/30/16 15:30 84 17 97/51 97 Room Air 06/30/16 15:15 85 17 96/53 100 Room Air 06/30/16 15:03 90 16 91/49 100 Room Air 06/30/16 14:47 84 16 104/52 98 Room Air 06/30/16 14:30 73 11 95/61 98 Room Air 06/30/16 14:15 105 12 110/70 97 Room Air 06/30/16 14:00 114 13 110/70 96 Room Air 06/30/16 13:45 74 14 107/58 97 Room Air 06/30/16 13:30 66 19 100/57 97 Room Air 06/30/16 13:15 72 15 121/60 97 Room Air 06/30/16 13:00 65 18 104/51 96 Room Air 06/30/16 12:45 66 12 80/36 96 Room Air 06/30/16 12:30 66 22 72/46 95 Room Air 06/30/16 12:17 59 06/30/16 12:15 62 14 114/42 97 Room Air 06/30/16 12:00 98.7 63 19 100/45 97 Room Air 06/30/16 11:46 63 22 96/40 97 Room Air 06/30/16 11:30 65 19 102/45 96 Room Air 06/30/16 11:15 67 15 80/35 96 Room Air 06/30/16 11:00 72 15 86/39 97 Room Air 06/30/16 10:45 72 16 100/42 97 Room Air 06/30/16 10:30 80 16 89/50 95 Room Air Intake and Output 06/30/16 07/01/16 19:00 07:00 Intake Total 979.34 ml 1719.87 ml Output Total 795 ml 600 ml Balance 184.34 ml 1119.87 ml IV Total 979.34 ml 1619.87 ml Tube Feeding 100 ml Output Urine Total 795 ml 600 ml # Bowel Movements 2 1 Laboratory Tests 07/01/16 04:56: White Blood Count 10.7, Red Blood Count 3.19L, Hemoglobin 9.6L, Hematocrit 28.8L , Mean Corpuscular Volume 91, Mean Corpuscular Hemoglobin 30.1, Mean Corpuscular Hemoglobin Concent 33.2, Red Cell Distribution Width 14.6, Platelet Count 124L, Mean Platelet Volume 9.6, Neutrophils (%) (Auto) 45.4, Lymphocytes ( %) (Auto) 34.5, Monocytes (%) (Auto) 7.7, Eosinophils (%) (Auto) 11.8H, Basophils (%) (Auto) 0.6, Sodium Level 134L, Potassium Level 5.0H, Chloride Level 105, Carbon Dioxide Level 19L, Anion Gap 10, Blood Urea Nitrogen 13, Creatinine 1.3H, Estimat Glomerular Filtration Rate , Glucose Level 88, Calcium Level 8.0L Height (Feet): 5 Height (Inches): 3.00 Weight (Pounds): 110 Objective General Appearance: WD/WN, lethargic, confused Neck: supple Cardiovascular: normal rate, regular rhythm Respiratory/Chest: lungs clear, normal breath sounds, no respiratory distress, no accessory muscle use Abdomen: normal bowel sounds, non tender, soft, no organomegaly Edema: no edema noted Arm (L), no edema noted Arm (R), no edema noted Leg (L), no edema noted Leg (R), no edema noted Pedal (L), no edema noted Pedal (R), no edema noted Generalized Neurologic: disoriented Skin: normal pigmentation, warm/dry HA FRANCIS Jul 01, 2016 10:20
--- NOTE | 2016-07-01 11:31 | Critical Care Progress Note ---
Assessment/Plan Assessment/Plan IMPRESSION: Respiratory failure, mostly due to metabolic acidosis (improved), presumed sepsis, shock, hypothermia, hypotension, history of dementia, history congestive heart failure, history of coronary artery disease, history of hypertension, possible acute on chronic renal failure, significant lactic acidemia, protein-calorie malnutrition, and profound leukocytosis. PLAN BIPAP off and stable monitor acid base exchange IV antibiotics noted check cultures maintain blood pressure with pressors as needed support clinically ICU care noted and reviewed discussed with all close follow up on all parameters and hemodynamics still requiring pressors medications/laboratory data/nursing notes/ICU care reviewed in detail note reviewed and edited care discussed with RN and RT ICU time spent 35 minutes Critical Care - Subjective Interval Events: comfortable at present no distress ROS Limited/Unobtainable: Yes Condition: improving EKG Rhythm: Sinus Rhythm I&O: Intake and Output 06/30/16 07/01/16 19:00 07:00 Intake Total 979.34 ml 1719.87 ml Output Total 795 ml 600 ml Balance 184.34 ml 1119.87 ml IV Total 979.34 ml 1619.87 ml Tube Feeding 100 ml Output Urine Total 795 ml 600 ml # Bowel Movements 2 1 Critical Care - Objective ET-Tube: 8.0 ET Position: 24 Last 24 Hour Vital Signs Date Time Temp Pulse Resp B/P Pulse Ox O2 Delivery O2 Flow Rate FiO2 07/01/16 10:30 83 18 103/59 97 Room Air 07/01/16 10:00 87 22 107/72 97 Room Air 07/01/16 09:45 89 18 101/64 97 Room Air 07/01/16 09:30 89 17 119/71 96 Room Air 07/01/16 09:15 94 18 106/70 97 Room Air 07/01/16 09:03 89 16 94/53 96 Room Air 07/01/16 08:49 79 07/01/16 08:45 83 14 92/57 96 Room Air 07/01/16 08:30 88 17 106/62 97 Room Air 07/01/16 08:15 79 14 105/59 95 Room Air 07/01/16 08:00 97.7 88 16 117/55 95 Room Air 07/01/16 07:45 74 13 100/75 95 Room Air 07/01/16 07:30 86 14 100/55 95 Room Air 07/01/16 07:15 72 19 94/45 98 Room Air 07/01/16 07:00 98 22 127/64 96 Room Air 07/01/16 06:45 107 20 129/61 96 Room Air 07/01/16 06:30 106 19 129/73 97 Room Air 07/01/16 06:15 99 19 128/64 97 Room Air 07/01/16 06:00 78 14 120/62 96 Room Air 07/01/16 05:45 77 14 112/66 96 Room Air 07/01/16 05:30 75 16 101/60 97 Room Air 07/01/16 05:15 79 15 95/78 97 Room Air 07/01/16 05:00 77 14 110/57 97 Room Air 07/01/16 05:00 110/57 07/01/16 04:45 70 13 108/64 97 Room Air 07/01/16 04:30 69 12 111/53 96 Room Air 07/01/16 04:15 73 13 104/54 96 Room Air 07/01/16 04:00 77 07/01/16 04:00 102/67 07/01/16 04:00 98.5 77 15 102/67 96 Room Air 07/01/16 03:45 75 14 112/52 96 Room Air 07/01/16 03:30 73 15 93/38 96 Room Air 07/01/16 03:15 71 13 109/50 97 Room Air 07/01/16 03:00 102/52 07/01/16 03:00 70 13 102/52 97 Room Air 07/01/16 02:45 69 15 106/50 96 Room Air 07/01/16 02:30 76 14 103/53 97 Room Air 07/01/16 02:15 71 12 101/52 96 Room Air 07/01/16 02:00 92/49 07/01/16 02:00 69 13 92/49 96 Room Air 07/01/16 01:45 67 13 99/49 97 Room Air 07/01/16 01:30 69 12 99/46 97 Room Air 07/01/16 01:15 70 13 93/69 97 Room Air 07/01/16 01:00 71 15 106/52 97 Room Air 07/01/16 01:00 106/52 07/01/16 00:45 70 14 94/47 97 Room Air 07/01/16 00:30 98.3 70 14 96/50 96 Room Air 07/01/16 00:15 72 12 104/57 96 Room Air 07/01/16 00:00 71 15 81/38 96 Room Air 07/01/16 00:00 81/38 07/01/16 00:00 71 06/30/16 23:45 70 15 94/44 96 Room Air 06/30/16 23:30 77 16 109/56 96 Room Air 06/30/16 23:02 91 19 97/43 96 Room Air 06/30/16 22:59 77/49 06/30/16 22:45 75 19 93/47 96 Room Air 06/30/16 22:30 72 20 84/41 96 Room Air 06/30/16 22:16 71 19 106/46 96 Room Air 06/30/16 22:00 68 19 99/51 96 Room Air 06/30/16 22:00 106/46 06/30/16 21:45 80 20 95/46 96 Room Air 06/30/16 21:30 84 20 86/44 96 Room Air 06/30/16 21:15 85 17 83/41 96 Room Air 06/30/16 21:00 81 17 94/58 97 Room Air 06/30/16 21:00 86/44 06/30/16 20:45 80 17 94/63 97 Room Air 06/30/16 20:30 83 17 91/49 97 Room Air 06/30/16 20:15 80 17 94/63 97 Room Air 06/30/16 20:00 98.1 83 16 101/59 97 Room Air 06/30/16 20:00 83 06/30/16 19:45 82 17 85/57 97 Room Air 06/30/16 19:31 76 16 102/55 97 Room Air 06/30/16 19:15 75 16 99/55 97 Room Air 06/30/16 19:02 96 Room Air 06/30/16 19:02 Room Air 06/30/16 19:00 74 13 95/58 97 Room Air 06/30/16 18:45 77 14 105/66 97 Room Air 06/30/16 18:30 77 16 99/53 97 Room Air 06/30/16 18:15 96 14 99/50 97 Room Air 06/30/16 18:00 98 17 108/57 97 Room Air 06/30/16 17:45 79 15 99/54 97 Room Air 06/30/16 17:30 76 18 86/66 97 Room Air 06/30/16 17:15 80 18 105/68 99 Room Air 06/30/16 17:00 78 18 93/68 99 Room Air 06/30/16 16:45 82 18 97/60 99 Room Air 06/30/16 16:30 80 18 91/40 99 Room Air 06/30/16 16:15 87 18 91/40 99 Room Air 06/30/16 16:00 98.1 86 18 80/44 99 Room Air 06/30/16 16:00 98 06/30/16 15:45 86 18 80/44 99 Room Air 06/30/16 15:30 84 17 97/51 97 Room Air 06/30/16 15:15 85 17 96/53 100 Room Air 06/30/16 15:03 90 16 91/49 100 Room Air 06/30/16 14:47 84 16 104/52 98 Room Air 06/30/16 14:30 73 11 95/61 98 Room Air 06/30/16 14:15 105 12 110/70 97 Room Air 06/30/16 14:00 114 13 110/70 96 Room Air 06/30/16 13:45 74 14 107/58 97 Room Air 06/30/16 13:30 66 19 100/57 97 Room Air 06/30/16 13:15 72 15 121/60 97 Room Air 06/30/16 13:00 65 18 104/51 96 Room Air 06/30/16 12:45 66 12 80/36 96 Room Air 06/30/16 12:30 66 22 72/46 95 Room Air 06/30/16 12:17 59 06/30/16 12:15 62 14 114/42 97 Room Air 06/30/16 12:00 98.7 63 19 100/45 97 Room Air 06/30/16 11:46 63 22 96/40 97 Room Air 06/30/16 11:30 65 19 102/45 96 Room Air Labs: Labs Test 06/28/16 13:10 06/28/16 13:15 06/29/16 06:00 06/29/16 09:38 Urine Random Sodium 54 mmol/L Urine Creatinine 62.5 mg/dL Arterial Blood pH 7.367 (7.350-7.450) 7.545 (7.350-7.450) Arterial Blood Partial Pressure CO2 17.0 mmHg (35.0-45.0) 27.0 mmHg (35.0-45.0) Arterial Blood Partial Pressure O2 175.0 mmHg (75.0-100.0) 125.5 mmHg (75.0-100.0) Arterial Blood HCO3 9.5 mmol/L (22.0-26.0) 22.8 mmol/L (22.0-26.0) Arterial Blood Oxygen Saturation 99.0 % (92.0-98.0) 98.1 % (92.0-98.0) Arterial Blood Base Excess -13.4 1.2 Pool Test Positive Positive Sodium Level 147 mEQ/L (135-145) Potassium Level 3.3 mEQ/L (3.4-4.9) Chloride Level 110 mEQ/L (98-107) Carbon Dioxide Level 19 mEQ/L (20-30) Anion Gap 18 (5-15) Blood Urea Nitrogen 47 mg/dL (7-23) Creatinine 2.7 mg/dL (0.5-0.9) Estimat Glomerular Filtration Rate mL/min (>60) Glucose Level 125 mg/dL (74-106) Uric Acid 7.5 mg/dL (3.0-7.5) Calcium Level 8.0 mg/dL (8.6-10.2) Total Bilirubin 0.3 mg/dL (0.0-1.2) Aspartate Amino Transf (AST/SGOT) 23 U/L (5-40) Alanine Aminotransferase (ALT/SGPT) 11 U/L (3-33) Alkaline Phosphatase 65 U/L (35-104) Total Creatine Kinase 352 U/L (26-140) Total Protein 5.8 g/dL (6.6-8.7) Albumin 2.2 g/dL (3.5-5.2) Globulin 3.6 g/dL Albumin/Globulin Ratio 0.6 (1.0-2.7) Random Vancomycin Level 19.1 ug/mL Test 06/29/16 15:14 06/30/16 04:15 07/01/16 04:56 Arterial Blood pH 7.549 (7.350-7.450) Arterial Blood Partial Pressure CO2 27.2 mmHg (35.0-45.0) Arterial Blood Partial Pressure O2 106.7 mmHg (75.0-100.0) Arterial Blood HCO3 23.2 mmol/L (22.0-26.0) Arterial Blood Oxygen Saturation 97.7 % (92.0-98.0) Arterial Blood Base Excess 1.6 Pool Test Positive White Blood Count 14.9 K/UL (4.8-10.8) 10.7 K/UL (4.8-10.8) Red Blood Count 3.18 M/UL (4.20-5.40) 3.19 M/UL (4.20-5.40) Hemoglobin 9.8 G/DL (12.0-16.0) 9.6 G/DL (12.0-16.0) Hematocrit 28.7 % (37.0-47.0) 28.8 % (37.0-47.0) Mean Corpuscular Volume 90 FL (80-99) 91 FL (80-99) Mean Corpuscular Hemoglobin 30.9 PG (27.0-31.0) 30.1 PG (27.0-31.0) Mean Corpuscular Hemoglobin Concent 34.2 G/DL (32.0-36.0) 33.2 G/DL (32.0-36.0) Red Cell Distribution Width 14.0 % (11.6-14.8) 14.6 % (11.6-14.8) Platelet Count 152 K/UL (150-450) 124 K/UL (150-450) Mean Platelet Volume 11.3 FL (6.5-10.1) 9.6 FL (6.5-10.1) Neutrophils (%) (Auto) 53.0 % (45.0-75.0) 45.4 % (45.0-75.0) Lymphocytes (%) (Auto) 30.6 % (20.0-45.0) 34.5 % (20.0-45.0) Monocytes (%) (Auto) 6.5 % (1.0-10.0) 7.7 % (1.0-10.0) Eosinophils (%) (Auto) 9.4 % (0.0-3.0) 11.8 % (0.0-3.0) Basophils (%) (Auto) 0.6 % (0.0-2.0) 0.6 % (0.0-2.0) Sodium Level 141 mEQ/L (135-145) 134 mEQ/L (135-145) Potassium Level 3.6 mEQ/L (3.4-4.9) 5.0 mEQ/L (3.4-4.9) Chloride Level 107 mEQ/L (98-107) 105 mEQ/L (98-107) Carbon Dioxide Level 23 mEQ/L (20-30) 19 mEQ/L (20-30) Anion Gap 11 (5-15) 10 (5-15) Blood Urea Nitrogen 24 mg/dL (7-23) 13 mg/dL (7-23) Creatinine 1.6 mg/dL (0.5-0.9) 1.3 mg/dL (0.5-0.9) Estimat Glomerular Filtration Rate mL/min (>60) mL/min (>60) Glucose Level 110 mg/dL (74-106) 88 mg/dL (74-106) Calcium Level 7.8 mg/dL (8.6-10.2) 8.0 mg/dL (8.6-10.2) Magnesium Level 1.4 mg/dL (1.7-2.5) Total Bilirubin 0.4 mg/dL (0.0-1.2) Aspartate Amino Transf (AST/SGOT) 18 U/L (5-40) Alanine Aminotransferase (ALT/SGPT) 10 U/L (3-33) Alkaline Phosphatase 74 U/L (35-104) Total Protein 5.5 g/dL (6.6-8.7) Albumin 2.1 g/dL (3.5-5.2) Globulin 3.4 g/dL Albumin/Globulin Ratio 0.6 (1.0-2.7) Objective: GENERAL: A well-developed female, appears to be chronically ill. HEENT: Fairly negative. Pupils are sluggish. BiPAP off and remains fairly stable NECK: Supple. No jugular venous distention. LUNGS: stable breath sounds without rhonchi; Moderate air entry. without wheeze CARDIAC: S1 and S2. RRR without murmurs, rubs, or gallops. ABDOMEN: Soft, nontender, and nondistended. no HSM EXTREMITIES: No cyanosis or clubbing. No edema. NEUROLOGICAL: Grossly nonfocal. contracted and withdrawn ISHAAYA,MARCELO Jul 01, 2016 11:31
--- NOTE | 2016-07-01 13:58 | Infectious Diseases Prog Note ---
Assessment/Plan Assessment/Plan A 1. ? endocarditis of mitral valve 2. klebsiella UTI 3. shock resolved 4. respiratory failure 5. renal failure improving 6. leucocytosis resolved P 1. continue ceftaroline 2. will follow up cultures 3. consider DARREN when stable Subjective ROS Limited/Unobtainable: Yes Allergies: Coded Allergies: No Known Allergies (Unverified , 04/18/12) Objective Vital Signs Last 24 Hour Vital Signs Date Time Temp Pulse Resp B/P Pulse Ox O2 Delivery O2 Flow Rate FiO2 07/01/16 10:30 83 18 103/59 97 Room Air 07/01/16 10:00 87 22 107/72 97 Room Air 07/01/16 09:45 89 18 101/64 97 Room Air 07/01/16 09:30 89 17 119/71 96 Room Air 07/01/16 09:15 94 18 106/70 97 Room Air 07/01/16 09:03 89 16 94/53 96 Room Air 07/01/16 08:49 79 07/01/16 08:45 83 14 92/57 96 Room Air 07/01/16 08:30 88 17 106/62 97 Room Air 07/01/16 08:15 79 14 105/59 95 Room Air 07/01/16 08:00 97.7 88 16 117/55 95 Room Air 07/01/16 07:45 74 13 100/75 95 Room Air 07/01/16 07:30 86 14 100/55 95 Room Air 07/01/16 07:15 72 19 94/45 98 Room Air 07/01/16 07:00 98 22 127/64 96 Room Air 07/01/16 06:45 107 20 129/61 96 Room Air 07/01/16 06:30 106 19 129/73 97 Room Air 07/01/16 06:15 99 19 128/64 97 Room Air 07/01/16 06:00 78 14 120/62 96 Room Air 07/01/16 05:45 77 14 112/66 96 Room Air 07/01/16 05:30 75 16 101/60 97 Room Air 07/01/16 05:15 79 15 95/78 97 Room Air 07/01/16 05:00 77 14 110/57 97 Room Air 07/01/16 05:00 110/57 07/01/16 04:45 70 13 108/64 97 Room Air 07/01/16 04:30 69 12 111/53 96 Room Air 07/01/16 04:15 73 13 104/54 96 Room Air 07/01/16 04:00 77 07/01/16 04:00 102/67 07/01/16 04:00 98.5 77 15 102/67 96 Room Air 07/01/16 03:45 75 14 112/52 96 Room Air 07/01/16 03:30 73 15 93/38 96 Room Air 07/01/16 03:15 71 13 109/50 97 Room Air 07/01/16 03:00 102/52 07/01/16 03:00 70 13 102/52 97 Room Air 07/01/16 02:45 69 15 106/50 96 Room Air 07/01/16 02:30 76 14 103/53 97 Room Air 07/01/16 02:15 71 12 101/52 96 Room Air 07/01/16 02:00 92/49 07/01/16 02:00 69 13 92/49 96 Room Air 07/01/16 01:45 67 13 99/49 97 Room Air 07/01/16 01:30 69 12 99/46 97 Room Air 07/01/16 01:15 70 13 93/69 97 Room Air 07/01/16 01:00 71 15 106/52 97 Room Air 07/01/16 01:00 106/52 07/01/16 00:45 70 14 94/47 97 Room Air 07/01/16 00:30 98.3 70 14 96/50 96 Room Air 07/01/16 00:15 72 12 104/57 96 Room Air 07/01/16 00:00 71 15 81/38 96 Room Air 07/01/16 00:00 81/38 07/01/16 00:00 71 06/30/16 23:45 70 15 94/44 96 Room Air 06/30/16 23:30 77 16 109/56 96 Room Air 06/30/16 23:02 91 19 97/43 96 Room Air 06/30/16 22:59 77/49 06/30/16 22:45 75 19 93/47 96 Room Air 06/30/16 22:30 72 20 84/41 96 Room Air 06/30/16 22:16 71 19 106/46 96 Room Air 06/30/16 22:00 68 19 99/51 96 Room Air 06/30/16 22:00 106/46 06/30/16 21:45 80 20 95/46 96 Room Air 06/30/16 21:30 84 20 86/44 96 Room Air 06/30/16 21:15 85 17 83/41 96 Room Air 06/30/16 21:00 81 17 94/58 97 Room Air 06/30/16 21:00 86/44 06/30/16 20:45 80 17 94/63 97 Room Air 06/30/16 20:30 83 17 91/49 97 Room Air 06/30/16 20:15 80 17 94/63 97 Room Air 06/30/16 20:00 98.1 83 16 101/59 97 Room Air 06/30/16 20:00 83 06/30/16 19:45 82 17 85/57 97 Room Air 06/30/16 19:31 76 16 102/55 97 Room Air 06/30/16 19:15 75 16 99/55 97 Room Air 06/30/16 19:02 96 Room Air 06/30/16 19:02 Room Air 06/30/16 19:00 74 13 95/58 97 Room Air 06/30/16 18:45 77 14 105/66 97 Room Air 06/30/16 18:30 77 16 99/53 97 Room Air 06/30/16 18:15 96 14 99/50 97 Room Air 06/30/16 18:00 98 17 108/57 97 Room Air 06/30/16 17:45 79 15 99/54 97 Room Air 06/30/16 17:30 76 18 86/66 97 Room Air 06/30/16 17:15 80 18 105/68 99 Room Air 06/30/16 17:00 78 18 93/68 99 Room Air 06/30/16 16:45 82 18 97/60 99 Room Air 06/30/16 16:30 80 18 91/40 99 Room Air 06/30/16 16:15 87 18 91/40 99 Room Air 06/30/16 16:00 98.1 86 18 80/44 99 Room Air 06/30/16 16:00 98 06/30/16 15:45 86 18 80/44 99 Room Air 06/30/16 15:30 84 17 97/51 97 Room Air 06/30/16 15:15 85 17 96/53 100 Room Air 06/30/16 15:03 90 16 91/49 100 Room Air 06/30/16 14:47 84 16 104/52 98 Room Air 06/30/16 14:30 73 11 95/61 98 Room Air 06/30/16 14:15 105 12 110/70 97 Room Air 06/30/16 14:00 114 13 110/70 96 Room Air Height (Feet): 5 Height (Inches): 3.00 Weight (Pounds): 110 HEENT: normocephalic Respiratory/Chest: lungs clear Cardiovascular: normal rate, other - RIJ central line Abdomen: soft, non tender Extremities: no edema Neurologic/Psychiatric: unresponsiveness Laboratory Tests Test 07/01/16 04:56 White Blood Count 10.7 K/UL (4.8-10.8) Red Blood Count 3.19 M/UL (4.20-5.40) L Hemoglobin 9.6 G/DL (12.0-16.0) L Hematocrit 28.8 % (37.0-47.0) L Mean Corpuscular Volume 91 FL (80-99) Mean Corpuscular Hemoglobin 30.1 PG (27.0-31.0) Mean Corpuscular Hemoglobin Concent 33.2 G/DL (32.0-36.0) Red Cell Distribution Width 14.6 % (11.6-14.8) Platelet Count 124 K/UL (150-450) L Mean Platelet Volume 9.6 FL (6.5-10.1) Neutrophils (%) (Auto) 45.4 % (45.0-75.0) Lymphocytes (%) (Auto) 34.5 % (20.0-45.0) Monocytes (%) (Auto) 7.7 % (1.0-10.0) Eosinophils (%) (Auto) 11.8 % (0.0-3.0) H Basophils (%) (Auto) 0.6 % (0.0-2.0) Sodium Level 134 mEQ/L (135-145) L Potassium Level 5.0 mEQ/L (3.4-4.9) H Chloride Level 105 mEQ/L (98-107) Carbon Dioxide Level 19 mEQ/L (20-30) L Anion Gap 10 (5-15) Blood Urea Nitrogen 13 mg/dL (7-23) Creatinine 1.3 mg/dL (0.5-0.9) H Estimat Glomerular Filtration Rate mL/min (>60) Glucose Level 88 mg/dL (74-106) Calcium Level 8.0 mg/dL (8.6-10.2) L Current Medications Medications (Trade) Dose Ordered Sig/Trip Route PRN Reason Start Time Stop Time Status Last Admin Dose Admin Acetaminophen (Tylenol) 650 mg Q4HR PRN NG Prn Headache/Temp > 101 06/27/16 18:45 07/27/16 18:44 Acetaminophen/ Hydrocodone Bitart (Velva 5/325) 1 tab Q4H PRN ORAL For Pain 06/27/16 18:45 07/04/16 18:44 Aspirin (ASA) 81 mg DAILY ORAL 06/28/16 09:00 07/28/16 08:59 07/01/16 08:26 Ceftaroline Fosamil 300 mg/ Sodium Chloride 110 ml @ 110 mls/hr Q12HR@0230,1430 IVPB 07/01/16 02:30 07/08/16 02:29 07/01/16 02:29 Dopamine HCl/ Dextrose (DOPamine 400mg/ 250ml) 250 ml @ 5.613 mls/ hr Q24H IV 06/28/16 21:00 07/28/16 20:59 06/28/16 07:50 Levothyroxine Sodium (Synthroid) 125 mcg DAILY@0630 ORAL 06/28/16 06:30 07/28/16 06:29 07/01/16 06:13 Multivitamins 5 ml 5 ml DAILY ORAL 06/28/16 09:00 07/28/16 08:59 07/01/16 08:27 Norepinephrine Bitartrate/ Dextrose (Levophed/D5W 250ml) 250 ml @ 0 mls/hr Q24H IV 06/27/16 19:00 07/27/16 18:59 06/30/16 08:01 Pantoprazole 40 mg 40 mg DAILY IVP 06/28/16 09:00 07/28/16 08:59 07/01/16 08:27 Sodium Chloride (Sodium Chloride 1000ml bag) 1,000 ml @ 100 mls/hr Q10H IV 07/01/16 08:15 07/31/16 08:14 07/01/16 08:26 JAMEEL TRIPATHI Jul 01, 2016 13:58
--- NOTE | 2016-07-01 14:51 | Nephrology Progress Note ---
Assessment/Plan Problem List: (1) Pyelonephritis (2) Acute hypernatremia (3) Dehydration (4) Sepsis (5) MARCELLE (acute kidney injury) (6) Septic shock Plan still needs iv rehydration, lab trend better, iv adjusted,continuing rx klebsiella uti Subjective ROS Limited/Unobtainable: Yes Objective Objective Last 24 Hour Vital Signs Date Time Temp Pulse Resp B/P Pulse Ox O2 Delivery O2 Flow Rate FiO2 07/01/16 14:00 74 14 101/73 95 Room Air 07/01/16 13:00 83 14 97/71 96 Room Air 07/01/16 12:00 96.9 85 15 105/61 97 Room Air 07/01/16 12:00 89 07/01/16 11:30 86 15 103/69 97 Room Air 07/01/16 11:00 90 14 120/65 97 Room Air 07/01/16 10:30 83 18 103/59 97 Room Air 07/01/16 10:00 87 22 107/72 97 Room Air 07/01/16 09:45 89 18 101/64 97 Room Air 07/01/16 09:30 89 17 119/71 96 Room Air 07/01/16 09:15 94 18 106/70 97 Room Air 07/01/16 09:03 89 16 94/53 96 Room Air 07/01/16 08:49 79 07/01/16 08:45 83 14 92/57 96 Room Air 07/01/16 08:30 88 17 106/62 97 Room Air 07/01/16 08:15 79 14 105/59 95 Room Air 07/01/16 08:00 97.7 88 16 117/55 95 Room Air 07/01/16 07:45 74 13 100/75 95 Room Air 07/01/16 07:30 86 14 100/55 95 Room Air 07/01/16 07:15 72 19 94/45 98 Room Air 07/01/16 07:00 98 22 127/64 96 Room Air 07/01/16 06:45 107 20 129/61 96 Room Air 07/01/16 06:30 106 19 129/73 97 Room Air 07/01/16 06:15 99 19 128/64 97 Room Air 07/01/16 06:00 78 14 120/62 96 Room Air 07/01/16 05:45 77 14 112/66 96 Room Air 07/01/16 05:30 75 16 101/60 97 Room Air 07/01/16 05:15 79 15 95/78 97 Room Air 07/01/16 05:00 77 14 110/57 97 Room Air 07/01/16 05:00 110/57 07/01/16 04:45 70 13 108/64 97 Room Air 07/01/16 04:30 69 12 111/53 96 Room Air 07/01/16 04:15 73 13 104/54 96 Room Air 07/01/16 04:00 77 07/01/16 04:00 102/67 07/01/16 04:00 98.5 77 15 102/67 96 Room Air 07/01/16 03:45 75 14 112/52 96 Room Air 07/01/16 03:30 73 15 93/38 96 Room Air 07/01/16 03:15 71 13 109/50 97 Room Air 07/01/16 03:00 102/52 07/01/16 03:00 70 13 102/52 97 Room Air 07/01/16 02:45 69 15 106/50 96 Room Air 07/01/16 02:30 76 14 103/53 97 Room Air 07/01/16 02:15 71 12 101/52 96 Room Air 07/01/16 02:00 92/49 07/01/16 02:00 69 13 92/49 96 Room Air 07/01/16 01:45 67 13 99/49 97 Room Air 07/01/16 01:30 69 12 99/46 97 Room Air 07/01/16 01:15 70 13 93/69 97 Room Air 07/01/16 01:00 71 15 106/52 97 Room Air 07/01/16 01:00 106/52 07/01/16 00:45 70 14 94/47 97 Room Air 07/01/16 00:30 98.3 70 14 96/50 96 Room Air 07/01/16 00:15 72 12 104/57 96 Room Air 07/01/16 00:00 71 15 81/38 96 Room Air 07/01/16 00:00 81/38 07/01/16 00:00 71 06/30/16 23:45 70 15 94/44 96 Room Air 06/30/16 23:30 77 16 109/56 96 Room Air 06/30/16 23:02 91 19 97/43 96 Room Air 06/30/16 22:59 77/49 06/30/16 22:45 75 19 93/47 96 Room Air 06/30/16 22:30 72 20 84/41 96 Room Air 06/30/16 22:16 71 19 106/46 96 Room Air 06/30/16 22:00 68 19 99/51 96 Room Air 06/30/16 22:00 106/46 06/30/16 21:45 80 20 95/46 96 Room Air 06/30/16 21:30 84 20 86/44 96 Room Air 06/30/16 21:15 85 17 83/41 96 Room Air 06/30/16 21:00 81 17 94/58 97 Room Air 06/30/16 21:00 86/44 06/30/16 20:45 80 17 94/63 97 Room Air 06/30/16 20:30 83 17 91/49 97 Room Air 06/30/16 20:15 80 17 94/63 97 Room Air 06/30/16 20:00 98.1 83 16 101/59 97 Room Air 06/30/16 20:00 83 06/30/16 19:45 82 17 85/57 97 Room Air 06/30/16 19:31 76 16 102/55 97 Room Air 06/30/16 19:15 75 16 99/55 97 Room Air 06/30/16 19:02 96 Room Air 06/30/16 19:02 Room Air 06/30/16 19:00 74 13 95/58 97 Room Air 06/30/16 18:45 77 14 105/66 97 Room Air 06/30/16 18:30 77 16 99/53 97 Room Air 06/30/16 18:15 96 14 99/50 97 Room Air 06/30/16 18:00 98 17 108/57 97 Room Air 06/30/16 17:45 79 15 99/54 97 Room Air 06/30/16 17:30 76 18 86/66 97 Room Air 06/30/16 17:15 80 18 105/68 99 Room Air 06/30/16 17:00 78 18 93/68 99 Room Air 06/30/16 16:45 82 18 97/60 99 Room Air 06/30/16 16:30 80 18 91/40 99 Room Air 06/30/16 16:15 87 18 91/40 99 Room Air 06/30/16 16:00 98.1 86 18 80/44 99 Room Air 06/30/16 16:00 98 06/30/16 15:45 86 18 80/44 99 Room Air 06/30/16 15:30 84 17 97/51 97 Room Air 06/30/16 15:15 85 17 96/53 100 Room Air 06/30/16 15:03 90 16 91/49 100 Room Air Intake and Output 06/30/16 07/01/16 19:00 07:00 Intake Total 979.34 ml 1719.87 ml Output Total 795 ml 600 ml Balance 184.34 ml 1119.87 ml IV Total 979.34 ml 1619.87 ml Tube Feeding 100 ml Output Urine Total 795 ml 600 ml # Bowel Movements 2 1 Laboratory Tests 07/01/16 04:56: White Blood Count 10.7, Red Blood Count 3.19L, Hemoglobin 9.6L, Hematocrit 28.8L , Mean Corpuscular Volume 91, Mean Corpuscular Hemoglobin 30.1, Mean Corpuscular Hemoglobin Concent 33.2, Red Cell Distribution Width 14.6, Platelet Count 124L, Mean Platelet Volume 9.6, Neutrophils (%) (Auto) 45.4, Lymphocytes ( %) (Auto) 34.5, Monocytes (%) (Auto) 7.7, Eosinophils (%) (Auto) 11.8H, Basophils (%) (Auto) 0.6, Sodium Level 134L, Potassium Level 5.0H, Chloride Level 105, Carbon Dioxide Level 19L, Anion Gap 10, Blood Urea Nitrogen 13, Creatinine 1.3H, Estimat Glomerular Filtration Rate , Glucose Level 88, Calcium Level 8.0L Height (Feet): 5 Height (Inches): 3.00 Weight (Pounds): 110 General Appearance: confused EENT: normal ENT inspection Neck: normal alignment Cardiovascular: normal rate Respiratory/Chest: rhonchi - bilaterally Abdomen: non tender, soft Neurologic: motor weakness JILL GASPAR Jul 01, 2016 14:51
[2016-07-01] MEDS: DOPamine 400mg/250ml 250 ML IV SCH (21:00)
[2016-07-02] VITALS (17 sets, daily range): BP systolic 84–140; BP diastolic 50–86
[2016-07-02] MEDS: NS IVPB SCH ×2 (02:56→14:37)
[2016-07-02] MEDS: CEFTAROLINE IVPB SCH ×2 (02:56→14:37)
[2016-07-02] MEDS: Levothyroxine 125mcg tab ORAL SCH (05:53)
[2016-07-02 06:06] LABS: ALANINE AMINOTRANSFERASE 9 U/L (3-33); ALBUMIN/GLOBULIN RATIO 0.6 (1.0-2.7); ANION GAP 14 (5-15); ASPARTATE AMINO TRANSFERASE 15 U/L (5-40); CALCIUM 7.8 mg/dL (8.6-10.2); CARBON DIOXIDE 16 mEQ/L (20-30); CHLORIDE 107 mEQ/L (98-107); CREATININE 1.3 mg/dL (0.5-0.9); HEMOLYSIS 0; POTASSIUM 4.2 mEQ/L (3.4-4.9); SODIUM 137 mEQ/L (135-145); TOTAL PROTEIN 5.3 g/dL (6.6-8.7)
--- NOTE | 2016-07-02 07:54 | General Progress Note ---
Assessment/Plan Problem List: (1) Hypothyroid ICD Codes: E03.9 - Hypothyroid SNOMED: 76912691 (2) Septic shock ICD Codes: A41.9 - Sepsis, unspecified organism; R65.21 - Severe sepsis with septic shock SNOMED: 55084725 (3) Acute renal failure ICD Codes: N17.9 - Acute kidney failure, unspecified SNOMED: 57340355 Qualifiers: Qualified Codes: N17.0 - Acute kidney failure with tubular necrosis (4) Sepsis ICD Codes: A41.9 - Sepsis, unspecified organism SNOMED: 70492945 (5) Altered mental status ICD Codes: R41.82 - Altered mental status, unspecified SNOMED: 936830588 Qualifiers: Qualified Codes: R41.0 - Disorientation, unspecified (6) Acute delirium ICD Codes: R41.0 - Acute delirium SNOMED: 9495696 (7) UTI (lower urinary tract infection) ICD Codes: N39.0 - UTI (lower urinary tract infection) SNOMED: 4999928 Status: stable, progressing Assessment/Plan monitor bp ivf adjusted wean o2 monitor abg abx per ID RN to retry NGT insertion to tele ?GT Subjective ROS Limited/Unobtainable: Yes Constitutional: Reports: malaise, weakness HEENT: Reports: no symptoms Cardiovascular: Reports: no symptoms Respiratory: Reports: no symptoms Gastrointestinal/Abdominal: Reports: no symptoms Genitourinary: Reports: no symptoms Neurologic/Psychiatric: Reports: pre-existing deficit Endocrine: Reports: no symptoms Hematologic/Lymphatic: Reports: anemia Allergies: Coded Allergies: No Known Allergies (Unverified , 04/18/12) All Systems: reviewed and negative except above Subjective doing better. better uop. off levophed. now off bipap. labs/renal fxn improving. alert but quickly falls back asleep. confused at baseline. RN unable to place ngt. labs noted. failed swallow. Objective Last 24 Hour Vital Signs Date Time Temp Pulse Resp B/P Pulse Ox O2 Delivery O2 Flow Rate FiO2 07/02/16 07:00 82 14 101/57 97 Room Air 07/02/16 06:00 83 18 84/67 94 Room Air 07/02/16 05:00 84 17 109/52 95 Room Air 07/02/16 04:00 91 07/02/16 04:00 98.7 91 17 136/77 96 Room Air 07/02/16 03:00 91 16 131/67 95 Room Air 07/02/16 02:00 91 17 125/56 96 Room Air 07/02/16 01:00 93 17 123/50 96 Room Air 07/02/16 00:00 93 07/02/16 00:00 99.2 93 17 122/74 96 Room Air 07/01/16 23:00 90 14 122/75 96 Room Air 07/01/16 22:00 74 14 109/56 98 Room Air 07/01/16 21:00 72 16 102/68 97 Room Air 07/01/16 20:18 Room Air 07/01/16 20:18 97 Room Air 07/01/16 20:00 98.9 66 17 93/51 97 Room Air 07/01/16 20:00 71 07/01/16 19:00 72 16 99/45 97 Room Air 07/01/16 18:21 95/59 07/01/16 18:00 99.2 73 14 95/59 99 Room Air 07/01/16 17:00 65 14 95/56 97 Room Air 07/01/16 16:00 99.8 69 15 88/46 97 Room Air 07/01/16 16:00 69 07/01/16 15:04 71 12 107/40 96 Room Air 07/01/16 14:00 74 14 101/73 95 Room Air 07/01/16 13:00 83 14 97/71 96 Room Air 07/01/16 12:00 96.9 85 15 105/61 97 Room Air 07/01/16 12:00 89 07/01/16 11:30 86 15 103/69 97 Room Air 07/01/16 11:00 90 14 120/65 97 Room Air 07/01/16 10:30 83 18 103/59 97 Room Air 07/01/16 10:00 87 22 107/72 97 Room Air 07/01/16 09:45 89 18 101/64 97 Room Air 07/01/16 09:30 89 17 119/71 96 Room Air 07/01/16 09:15 94 18 106/70 97 Room Air 07/01/16 09:03 89 16 94/53 96 Room Air 07/01/16 08:49 79 07/01/16 08:45 83 14 92/57 96 Room Air 07/01/16 08:30 88 17 106/62 97 Room Air 07/01/16 08:15 79 14 105/59 95 Room Air 07/01/16 08:00 97.7 88 16 117/55 95 Room Air Intake and Output 07/01/16 07/02/16 19:00 07:00 Intake Total 1010 ml 1310 ml Output Total 750 ml 660 ml Balance 260 ml 650 ml IV Total 1010 ml 1310 ml Output Urine Total 750 ml 660 ml # Bowel Movements 4 Laboratory Tests 07/02/16 05:00: Sodium Level 137, Potassium Level 4.2, Chloride Level 107, Carbon Dioxide Level 16L, Anion Gap 14, Blood Urea Nitrogen 8, Creatinine 1.3H, Estimat Glomerular Filtration Rate , Glucose Level 81, Calcium Level 7.8L, Total Bilirubin 0.5, Aspartate Amino Transf (AST/SGOT) 15, Alanine Aminotransferase (ALT/SGPT) 9, Alkaline Phosphatase 69, Total Protein 5.3L, Albumin 2.1L, Globulin 3.2, Albumin /Globulin Ratio 0.6L Height (Feet): 5 Height (Inches): 3.00 Weight (Pounds): 110 Objective General Appearance: WD/WN, lethargic, confused Neck: supple Cardiovascular: normal rate, regular rhythm Respiratory/Chest: lungs clear, normal breath sounds, no respiratory distress, no accessory muscle use Abdomen: normal bowel sounds, non tender, soft, no organomegaly Edema: no edema noted Arm (L), no edema noted Arm (R), no edema noted Leg (L), no edema noted Leg (R), no edema noted Pedal (L), no edema noted Pedal (R), no edema noted Generalized Neurologic: disoriented Skin: normal pigmentation, warm/dry HA FRANCIS Jul 02, 2016 07:54
[2016-07-02] MEDS: Multivitamin 5ml Liquid ORAL SCH (08:40)
[2016-07-02] MEDS: Aspirin Baby 81mg ORAL SCH (08:40)
[2016-07-02] MEDS: Pantoprazole Inj IVP SCH (08:40)
[2016-07-02 09:30] LABS: BASOPHILS % (AUTO) 0.6 % (0.0-2.0); EOSINOPHILS % (AUTO) 11.9 % (0.0-3.0); LYMPHOCYTES % (AUTO) 28.8 % (20.0-45.0); MEAN CORPUSCULAR HGB CONC 33.2 G/DL (32.0-36.0); MEAN CORPUSCULAR VOLUME 90 FL (80-99); MEAN PLATELET VOLUME 10.4 FL (6.5-10.1); MONOCYTES % (AUTO) 7.9 % (1.0-10.0); NEUTROPHILS % (AUTO) 50.8 % (45.0-75.0); PLATELET COUNT 123 K/UL (150-450); RED BLOOD COUNT 3.13 M/UL (4.20-5.40); RED CELL DISTRIBUTION WIDTH 13.7 % (11.6-14.8); WHITE BLOOD COUNT 10.9 K/UL (4.8-10.8)
--- NOTE | 2016-07-02 14:44 | Infectious Diseases Prog Note ---
Assessment/Plan Assessment/Plan A 1. ? endocarditis of mitral valve 2. klebsiella UTI 3. shock resolved 4. respiratory failure 5. renal failure improving 6. leucocytosis resolved P 1. continue ceftaroline 2. will follow up cultures 3. consider DARREN when stable Subjective ROS Limited/Unobtainable: Yes Allergies: Coded Allergies: No Known Allergies (Unverified , 04/18/12) Objective Vital Signs Last 24 Hour Vital Signs Date Time Temp Pulse Resp B/P Pulse Ox O2 Delivery O2 Flow Rate FiO2 07/02/16 14:00 77 16 107/75 95 Room Air 07/02/16 13:00 98 16 107/75 96 Room Air 07/02/16 12:00 98.4 86 16 110/82 96 Room Air 07/02/16 12:00 93 07/02/16 11:00 98.4 79 16 111/67 97 Room Air 07/02/16 10:00 83 16 109/84 96 Room Air 07/02/16 09:00 93 16 95/59 97 Room Air 07/02/16 08:00 98.0 98 16 104/51 95 Room Air 07/02/16 08:00 79 07/02/16 07:00 82 14 101/57 97 Room Air 07/02/16 06:00 83 18 84/67 94 Room Air 07/02/16 05:00 84 17 109/52 95 Room Air 07/02/16 04:00 91 07/02/16 04:00 98.7 91 17 136/77 96 Room Air 07/02/16 03:00 91 16 131/67 95 Room Air 07/02/16 02:00 91 17 125/56 96 Room Air 07/02/16 01:00 93 17 123/50 96 Room Air 07/02/16 00:00 93 07/02/16 00:00 99.2 93 17 122/74 96 Room Air 07/01/16 23:00 90 14 122/75 96 Room Air 07/01/16 22:00 74 14 109/56 98 Room Air 07/01/16 21:00 72 16 102/68 97 Room Air 07/01/16 20:18 Room Air 07/01/16 20:18 97 Room Air 07/01/16 20:00 98.9 66 17 93/51 97 Room Air 07/01/16 20:00 71 07/01/16 19:00 72 16 99/45 97 Room Air 07/01/16 18:21 95/59 07/01/16 18:00 99.2 73 14 95/59 99 Room Air 07/01/16 17:00 65 14 95/56 97 Room Air 07/01/16 16:00 99.8 69 15 88/46 97 Room Air 07/01/16 16:00 69 07/01/16 15:04 71 12 107/40 96 Room Air Height (Feet): 5 Height (Inches): 3.00 Weight (Pounds): 110 General Appearance: no acute distress HEENT: mucous membranes moist Respiratory/Chest: rhonchi - bilaterally Cardiovascular: normal rate, other - RIJ central line Abdomen: soft, non tender, other - NG tube Extremities: no edema Neurologic/Psychiatric: unresponsiveness, other - opens eyes Laboratory Tests Test 07/02/16 05:00 07/02/16 08:40 Sodium Level 137 mEQ/L (135-145) Potassium Level 4.2 mEQ/L (3.4-4.9) Chloride Level 107 mEQ/L (98-107) Carbon Dioxide Level 16 mEQ/L (20-30) L Anion Gap 14 (5-15) Blood Urea Nitrogen 8 mg/dL (7-23) Creatinine 1.3 mg/dL (0.5-0.9) H Estimat Glomerular Filtration Rate mL/min (>60) Glucose Level 81 mg/dL (74-106) Calcium Level 7.8 mg/dL (8.6-10.2) L Total Bilirubin 0.5 mg/dL (0.0-1.2) Aspartate Amino Transf (AST/SGOT) 15 U/L (5-40) Alanine Aminotransferase (ALT/SGPT) 9 U/L (3-33) Alkaline Phosphatase 69 U/L (35-104) Total Protein 5.3 g/dL (6.6-8.7) L Albumin 2.1 g/dL (3.5-5.2) L Globulin 3.2 g/dL Albumin/Globulin Ratio 0.6 (1.0-2.7) L White Blood Count 10.9 K/UL (4.8-10.8) H Red Blood Count 3.13 M/UL (4.20-5.40) L Hemoglobin 9.4 G/DL (12.0-16.0) L Hematocrit 28.2 % (37.0-47.0) L Mean Corpuscular Volume 90 FL (80-99) Mean Corpuscular Hemoglobin 30.0 PG (27.0-31.0) Mean Corpuscular Hemoglobin Concent 33.2 G/DL (32.0-36.0) Red Cell Distribution Width 13.7 % (11.6-14.8) Platelet Count 123 K/UL (150-450) L Mean Platelet Volume 10.4 FL (6.5-10.1) H Neutrophils (%) (Auto) 50.8 % (45.0-75.0) Lymphocytes (%) (Auto) 28.8 % (20.0-45.0) Monocytes (%) (Auto) 7.9 % (1.0-10.0) Eosinophils (%) (Auto) 11.9 % (0.0-3.0) H Basophils (%) (Auto) 0.6 % (0.0-2.0) Current Medications Medications (Trade) Dose Ordered Sig/Trip Route PRN Reason Start Time Stop Time Status Last Admin Dose Admin Acetaminophen (Tylenol) 650 mg Q4HR PRN NG Prn Headache/Temp > 101 06/27/16 18:45 07/27/16 18:44 Acetaminophen/ Hydrocodone Bitart ([place] 5/325) 1 tab Q4H PRN ORAL For Pain 06/27/16 18:45 07/04/16 18:44 Aspirin (ASA) 81 mg DAILY ORAL 06/28/16 09:00 07/28/16 08:59 07/02/16 08:40 Ceftaroline Fosamil 300 mg/ Sodium Chloride 110 ml @ 110 mls/hr Q12HR@0230,1430 IVPB 07/01/16 02:30 07/08/16 02:29 07/02/16 14:37 Dopamine HCl/ Dextrose (DOPamine 400mg/ 250ml) 250 ml @ 5.613 mls/ hr Q24H IV 06/28/16 21:00 07/28/16 20:59 06/28/16 07:50 Levothyroxine Sodium (Synthroid) 125 mcg DAILY@0630 ORAL 06/28/16 06:30 07/28/16 06:29 07/02/16 05:53 Multivitamins 5 ml 5 ml DAILY ORAL 06/28/16 09:00 07/28/16 08:59 07/02/16 08:40 Norepinephrine Bitartrate/ Dextrose (Levophed/D5W 250ml) 250 ml @ 0 mls/hr Q24H IV 06/27/16 19:00 07/27/16 18:59 06/30/16 08:01 Pantoprazole 40 mg 40 mg DAILY IVP 06/28/16 09:00 07/28/16 08:59 07/02/16 08:40 Sodium Chloride (Sodium Chloride 1000ml bag) 1,000 ml @ 100 mls/hr Q10H IV 07/01/16 08:15 07/31/16 08:14 07/02/16 05:52 JAMEEL TRIPATHI Jul 02, 2016 14:44
--- NOTE | 2016-07-02 15:11 | Diagnostic Imaging Report ---
Indication: Abdominal pain Comparison: 02/03/15 Single view of the abdomen obtained Findings: Study limited by motion Bowel gas pattern is nonspecific. No mass, ectopic calcifications, or abnormal gas collections are identified. The bones show osteopenia and moderate degenerative changes of the thoracolumbar spine. Compression fracture deformities are present at the thoracolumbar junction, age-indeterminate. Impression: No acute findings. Compression fracture deformities of thoracic and lumbar vertebra, age-indeterminate.
[2016-07-02] MEDS ORDERED: Norco 5mg/325mg tab ORAL PRN ×2 (15:30→17:00)
[2016-07-02] MEDS ORDERED: Acetaminophen 650mg/20.3ml NG PRN ×2 (15:30→16:45)
--- NOTE | 2016-07-02 16:37 | Nephrology Progress Note ---
Assessment/Plan Problem List: (1) Pyelonephritis (2) Acute hypernatremia (3) Dehydration (4) Sepsis (5) MARCELLE (acute kidney injury) (6) Septic shock (7) Respiratory alkalosis Plan still needs iv rehydration, lab trend better, iv adjusted,continuing rx klebsiella uti Subjective ROS Limited/Unobtainable: Yes Objective Objective Last 24 Hour Vital Signs Date Time Temp Pulse Resp B/P Pulse Ox O2 Delivery O2 Flow Rate FiO2 07/02/16 16:00 97.8 100 22 139/78 96 Room Air 07/02/16 14:00 77 16 107/75 95 Room Air 07/02/16 13:00 98 16 107/75 96 Room Air 07/02/16 12:00 98.4 86 16 110/82 96 Room Air 07/02/16 12:00 93 07/02/16 11:00 98.4 79 16 111/67 97 Room Air 07/02/16 10:00 83 16 109/84 96 Room Air 07/02/16 09:00 93 16 95/59 97 Room Air 07/02/16 08:00 98.0 98 16 104/51 95 Room Air 07/02/16 08:00 79 07/02/16 07:00 82 14 101/57 97 Room Air 07/02/16 06:00 83 18 84/67 94 Room Air 07/02/16 05:00 84 17 109/52 95 Room Air 07/02/16 04:00 91 07/02/16 04:00 98.7 91 17 136/77 96 Room Air 07/02/16 03:00 91 16 131/67 95 Room Air 07/02/16 02:00 91 17 125/56 96 Room Air 07/02/16 01:00 93 17 123/50 96 Room Air 07/02/16 00:00 93 07/02/16 00:00 99.2 93 17 122/74 96 Room Air 07/01/16 23:00 90 14 122/75 96 Room Air 07/01/16 22:00 74 14 109/56 98 Room Air 07/01/16 21:00 72 16 102/68 97 Room Air 07/01/16 20:18 Room Air 07/01/16 20:18 97 Room Air 07/01/16 20:00 98.9 66 17 93/51 97 Room Air 07/01/16 20:00 71 07/01/16 19:00 72 16 99/45 97 Room Air 07/01/16 18:21 95/59 07/01/16 18:00 99.2 73 14 95/59 99 Room Air 07/01/16 17:00 65 14 95/56 97 Room Air Intake and Output 07/01/16 07/02/16 19:00 07:00 Intake Total 1010 ml 1310 ml Output Total 750 ml 660 ml Balance 260 ml 650 ml IV Total 1010 ml 1310 ml Output Urine Total 750 ml 660 ml # Bowel Movements 4 Laboratory Tests 07/02/16 05:00: Sodium Level 137, Potassium Level 4.2, Chloride Level 107, Carbon Dioxide Level 16L, Anion Gap 14, Blood Urea Nitrogen 8, Creatinine 1.3H, Estimat Glomerular Filtration Rate , Glucose Level 81, Calcium Level 7.8L, Total Bilirubin 0.5, Aspartate Amino Transf (AST/SGOT) 15, Alanine Aminotransferase (ALT/SGPT) 9, Alkaline Phosphatase 69, Total Protein 5.3L, Albumin 2.1L, Globulin 3.2, Albumin /Globulin Ratio 0.6L 07/02/16 08:40: White Blood Count 10.9H, Red Blood Count 3.13L, Hemoglobin 9.4L, Hematocrit 28.2L, Mean Corpuscular Volume 90, Mean Corpuscular Hemoglobin 30.0, Mean Corpuscular Hemoglobin Concent 33.2, Red Cell Distribution Width 13.7, Platelet Count 123L, Mean Platelet Volume 10.4H, Neutrophils (%) (Auto) 50.8, Lymphocytes (%) (Auto) 28.8, Monocytes (%) (Auto) 7.9, Eosinophils (%) (Auto) 11.9H, Basophils (%) (Auto) 0.6 Height (Feet): 5 Height (Inches): 3.00 Weight (Pounds): 110 General Appearance: confused, thin EENT: normal ENT inspection Neck: normal alignment Cardiovascular: regular rhythm Respiratory/Chest: rhonchi - bilaterally Abdomen: non tender, soft Extremities: other - contracted JILL GASPAR Jul 02, 2016 16:37
--- NOTE | 2016-07-02 17:18 | Critical Care Progress Note ---
Assessment/Plan Assessment/Plan IMPRESSION: Respiratory failure, mostly due to metabolic acidosis (improved), presumed sepsis, shock, hypothermia, hypotension, history of dementia, history congestive heart failure, history of coronary artery disease, history of hypertension, possible acute on chronic renal failure, significant lactic acidemia, protein-calorie malnutrition, and profound leukocytosis. PLAN monitor for change all noted and reviewed maintain blood pressure now improved support clinically close follow up on all parameters and hemodynamics optimize and advance care medications/laboratory data/nursing notes reviewed in detail note reviewed and edited care discussed with RN and RT Critical Care - Subjective Interval Events: care noted no distress transferred out of ICU ROS Limited/Unobtainable: Yes Condition: improving EKG Rhythm: Sinus Rhythm I&O: Intake and Output 07/01/16 07/02/16 19:00 07:00 Intake Total 1010 ml 1310 ml Output Total 750 ml 660 ml Balance 260 ml 650 ml IV Total 1010 ml 1310 ml Output Urine Total 750 ml 660 ml # Bowel Movements 4 Critical Care - Objective ET-Tube: 8.0 ET Position: 24 Last 24 Hour Vital Signs Date Time Temp Pulse Resp B/P Pulse Ox O2 Delivery O2 Flow Rate FiO2 07/02/16 16:00 97.8 100 22 139/78 96 Room Air 07/02/16 14:00 77 16 107/75 95 Room Air 07/02/16 13:00 98 16 107/75 96 Room Air 07/02/16 12:00 98.4 86 16 110/82 96 Room Air 07/02/16 12:00 93 07/02/16 11:00 98.4 79 16 111/67 97 Room Air 07/02/16 10:00 83 16 109/84 96 Room Air 07/02/16 09:00 93 16 95/59 97 Room Air 07/02/16 08:00 98.0 98 16 104/51 95 Room Air 07/02/16 08:00 79 07/02/16 07:00 82 14 101/57 97 Room Air 07/02/16 06:00 83 18 84/67 94 Room Air 07/02/16 05:00 84 17 109/52 95 Room Air 07/02/16 04:00 91 07/02/16 04:00 98.7 91 17 136/77 96 Room Air 07/02/16 03:00 91 16 131/67 95 Room Air 07/02/16 02:00 91 17 125/56 96 Room Air 07/02/16 01:00 93 17 123/50 96 Room Air 07/02/16 00:00 93 07/02/16 00:00 99.2 93 17 122/74 96 Room Air 07/01/16 23:00 90 14 122/75 96 Room Air 07/01/16 22:00 74 14 109/56 98 Room Air 07/01/16 21:00 72 16 102/68 97 Room Air 07/01/16 20:18 Room Air 07/01/16 20:18 97 Room Air 07/01/16 20:00 98.9 66 17 93/51 97 Room Air 07/01/16 20:00 71 07/01/16 19:00 72 16 99/45 97 Room Air 07/01/16 18:21 95/59 07/01/16 18:00 99.2 73 14 95/59 99 Room Air Labs: Laboratory Tests Test 07/02/16 05:00 07/02/16 08:40 Sodium Level 137 mEQ/L (135-145) Potassium Level 4.2 mEQ/L (3.4-4.9) Chloride Level 107 mEQ/L (98-107) Carbon Dioxide Level 16 mEQ/L (20-30) L Anion Gap 14 (5-15) Blood Urea Nitrogen 8 mg/dL (7-23) Creatinine 1.3 mg/dL (0.5-0.9) H Estimat Glomerular Filtration Rate mL/min (>60) Glucose Level 81 mg/dL (74-106) Calcium Level 7.8 mg/dL (8.6-10.2) L Total Bilirubin 0.5 mg/dL (0.0-1.2) Aspartate Amino Transf (AST/SGOT) 15 U/L (5-40) Alanine Aminotransferase (ALT/SGPT) 9 U/L (3-33) Alkaline Phosphatase 69 U/L (35-104) Total Protein 5.3 g/dL (6.6-8.7) L Albumin 2.1 g/dL (3.5-5.2) L Globulin 3.2 g/dL Albumin/Globulin Ratio 0.6 (1.0-2.7) L White Blood Count 10.9 K/UL (4.8-10.8) H Red Blood Count 3.13 M/UL (4.20-5.40) L Hemoglobin 9.4 G/DL (12.0-16.0) L Hematocrit 28.2 % (37.0-47.0) L Mean Corpuscular Volume 90 FL (80-99) Mean Corpuscular Hemoglobin 30.0 PG (27.0-31.0) Mean Corpuscular Hemoglobin Concent 33.2 G/DL (32.0-36.0) Red Cell Distribution Width 13.7 % (11.6-14.8) Platelet Count 123 K/UL (150-450) L Mean Platelet Volume 10.4 FL (6.5-10.1) H Neutrophils (%) (Auto) 50.8 % (45.0-75.0) Lymphocytes (%) (Auto) 28.8 % (20.0-45.0) Monocytes (%) (Auto) 7.9 % (1.0-10.0) Eosinophils (%) (Auto) 11.9 % (0.0-3.0) H Basophils (%) (Auto) 0.6 % (0.0-2.0) Objective: GENERAL: A well-developed female, appears to be chronically ill. HEENT: Fairly negative. NAD NECK: Supple. No jugular venous distention. LUNGS: stable breath sounds without rhonchi; Moderate air entry. without wheeze CARDIAC: S1 and S2. RRR without murmurs, rubs, or gallops. ABDOMEN: Soft, nontender, and nondistended. no HSM EXTREMITIES: No cyanosis or clubbing. No edema. NEUROLOGICAL: Grossly nonfocal. contracted and withdrawn reviewed and edited MARCELO BIRMINGHAM Jul 02, 2016 17:18
[2016-07-02] MEDS: Megace 400mg/10ml Susp NG SCH (18:00)
[2016-07-02] MEDS: Atorvastatin 20mg tab ORAL SCH (21:00)
[2016-07-03 00:36] VITALS: BP 125/78
--- NOTE | 2016-07-03 00:37 | Progress Note ---
DATE: 07/02/2016 CARDIOLOGY PROGRESS NOTE SUBJECTIVE: The patient is now off pressors. Blood pressure is more stable. She is withdrawn and confused. She continued to have aspiration risk and is on NG tube for nutrition. OBJECTIVE: VITAL SIGNS: Blood pressure 101/57, pulse 82, and respirations 14. Earlier blood pressure was 84/57. HEENT: Temporal wasting. Oropharynx clear. Dry mucous membranes. NECK: Supple. LUNGS: Clear. CARDIAC: Regular rhythm and rate. Normal S1 and S2 with a fourth heart sound. ABDOMEN: Soft. EXTREMITIES: With no edema. LABORATORY DATA: White count 10.9 and hemoglobin 9.4. Potassium 4.2, bicarb 16, BUN 8, and creatinine 1.3. Albumin 2.1. IMPRESSION: 1. Sepsis with shock. 2. Systemic inflammatory response syndrome. 3. Metabolic acidosis. 4. Severe protein-calorie malnutrition. 5. Acute renal failure, recovering. 6. Dehydration and hypernatremia, resolved. 7. Anemia. 8. Klebsiella urinary tract infection. 9. Condition is serious. Prognosis guarded. PLAN: 1. Maintain adequate hydration. 2. Avoid resumption of pressors if able. 3. Nutrition by NG tube. 4. Antibiotics per Infectious Disease [employer] sales consultant. 5. DVT and stress ulcer prophylaxis. 6. Antiplatelet therapy. 7. Hold cardiovascular regimen until blood pressure parameter is more stable. 8. Potential for congestive heart failure is present in view of underlying ischemic cardiomyopathy. Yohan Corbett M.D. DR: POOL JOB#: [id number] CC:
--- NOTE | 2016-07-03 00:47 | Progress Note ---
DATE: 07/01/2016 CARDIOLOGY PROGRESS NOTE Late entry for 07/01/2016. SUBJECTIVE: The patient is on pressor support. She is off BiPAP. She continues to require intensive care unit care. Her condition remained critical. Her prognosis is guarded. Family members have been apprised of above. OBJECTIVE: VITAL SIGNS: Blood pressure 94/53, pulse 89, respirations 16, monitored sinus tachycardia and sinus rhythm. HEENT: Dry mucous membranes. LUNGS: Bilateral breath sounds with few rhonchi. HEART: Regular rhythm and rate. Normal S1 and S2 with a fourth heart sound. ABDOMEN: Soft. No edema. LABORATORY DATA: White count 10.7 and hemoglobin 9.6. Sodium 134, potassium 5, bicarbonate 19, BUN 13, and creatinine 1.3. IMPRESSION: 1. Sepsis with shock. 2. Systemic inflammatory response syndrome. 3. Acute renal failure, improved. 4. Hypomagnesemia. 5. Severe protein-calorie malnutrition. 6. Acute myocardial ischemia. 7. Anemia. 8. Urinary tract infection. 9. Hypothyroidism, on replacement therapy. PLAN: 1. Tapering pressors. 2. Maintaining intravenous hydration. 3. Antibiotics per Infectious Disease call center consultant. 4. Aspiration precautions. 5. Antiplatelet therapy. 6. Continue to hold all cardiovascular medications until off pressors. 7. DVT and stress ulcer prophylaxis. Yohan Corbett M.D. DR: HERVE JOB#: [id number] CC:
[2016-07-03] MEDS ORDERED: CEFTAROLINE IVPB SCH (02:30)
[2016-07-03] MEDS ORDERED: NS IVPB SCH (02:30)
[2016-07-03 04:20] VITALS: BP 129/83
[2016-07-03 06:00] LABS: ALANINE AMINOTRANSFERASE 8 U/L (3-33); ALBUMIN/GLOBULIN RATIO 0.6 (1.0-2.7); ANION GAP 16 (5-15); ASPARTATE AMINO TRANSFERASE 15 U/L (5-40); CALCIUM 7.9 mg/dL (8.6-10.2); CARBON DIOXIDE 15 mEQ/L (20-30); CHLORIDE 104 mEQ/L (98-107); CREATININE 1.3 mg/dL (0.5-0.9); HEMOLYSIS 1; POTASSIUM 4.3 mEQ/L (3.4-4.9); SODIUM 135 mEQ/L (135-145); TOTAL PROTEIN 5.6 g/dL (6.6-8.7)
[2016-07-03] MEDS: Levothyroxine 125mcg tab ORAL SCH (06:30)
[2016-07-03] MEDS ORDERED: Levothyroxine 125mcg tab ORAL SCH (06:30)
--- NOTE | 2016-07-03 07:22 | Critical Care Progress Note ---
Assessment/Plan Assessment/Plan IMPRESSION: Respiratory failure, mostly due to metabolic acidosis (improved), presumed sepsis, shock, hypothermia, hypotension, history of dementia, history congestive heart failure, history of coronary artery disease, history of hypertension, possible acute on chronic renal failure, significant lactic acidemia, protein-calorie malnutrition, and profound leukocytosis. PLAN respiratory may improved low flow oxygen chest XR negative all noted and reviewed maintain blood pressure now improved support clinically mobilize and consider dc planning optimize and advance care medications/laboratory data/nursing notes reviewed in detail note reviewed and edited care discussed with RN and RT Critical Care - Subjective Interval Events: comfortable confused Condition: improving EKG Rhythm: Sinus Rhythm I&O: Intake and Output 07/02/16 07/03/16 19:00 07:00 Intake Total 600 ml 360 ml Output Total 450 ml 1400 ml Balance 150 ml -1040 ml IV Total 600 ml 360 ml Output Urine Total 450 ml 1400 ml # Bowel Movements 3 3 Critical Care - Objective ET-Tube: 8.0 ET Position: 24 Last 24 Hour Vital Signs Date Time Temp Pulse Resp B/P Pulse Ox O2 Delivery O2 Flow Rate FiO2 07/03/16 04:20 98.3 88 18 129/83 94 Room Air 07/03/16 04:00 84 07/03/16 00:36 98.5 90 18 125/78 96 Room Air 07/03/16 00:00 84 07/02/16 20:00 98.0 101 20 140/86 96 Room Air 07/02/16 20:00 88 07/02/16 19:12 Room Air 07/02/16 19:12 96 Room Air 07/02/16 16:00 97.8 100 22 139/78 96 Room Air 07/02/16 16:00 82 07/02/16 14:00 77 16 107/75 95 Room Air 07/02/16 13:00 98 16 107/75 96 Room Air 07/02/16 12:00 98.4 86 16 110/82 96 Room Air 07/02/16 12:00 93 07/02/16 11:00 98.4 79 16 111/67 97 Room Air 07/02/16 10:00 83 16 109/84 96 Room Air 07/02/16 09:00 93 16 95/59 97 Room Air 07/02/16 08:00 98.0 98 16 104/51 95 Room Air 07/02/16 08:00 79 Labs: Laboratory Tests Test 07/02/16 08:40 07/03/16 05:30 White Blood Count 10.9 K/UL (4.8-10.8) H Red Blood Count 3.13 M/UL (4.20-5.40) L Hemoglobin 9.4 G/DL (12.0-16.0) L Hematocrit 28.2 % (37.0-47.0) L Mean Corpuscular Volume 90 FL (80-99) Mean Corpuscular Hemoglobin 30.0 PG (27.0-31.0) Mean Corpuscular Hemoglobin Concent 33.2 G/DL (32.0-36.0) Red Cell Distribution Width 13.7 % (11.6-14.8) Platelet Count 123 K/UL (150-450) L Mean Platelet Volume 10.4 FL (6.5-10.1) H Neutrophils (%) (Auto) 50.8 % (45.0-75.0) Lymphocytes (%) (Auto) 28.8 % (20.0-45.0) Monocytes (%) (Auto) 7.9 % (1.0-10.0) Eosinophils (%) (Auto) 11.9 % (0.0-3.0) H Basophils (%) (Auto) 0.6 % (0.0-2.0) Sodium Level 135 mEQ/L (135-145) Potassium Level 4.3 mEQ/L (3.4-4.9) Chloride Level 104 mEQ/L (98-107) Carbon Dioxide Level 15 mEQ/L (20-30) L Anion Gap 16 (5-15) H Blood Urea Nitrogen 7 mg/dL (7-23) Creatinine 1.3 mg/dL (0.5-0.9) H Estimat Glomerular Filtration Rate mL/min (>60) Glucose Level 58 mg/dL (74-106) L Calcium Level 7.9 mg/dL (8.6-10.2) L Total Bilirubin 0.6 mg/dL (0.0-1.2) Aspartate Amino Transf (AST/SGOT) 15 U/L (5-40) Alanine Aminotransferase (ALT/SGPT) 8 U/L (3-33) Alkaline Phosphatase 73 U/L (35-104) Total Protein 5.6 g/dL (6.6-8.7) L Albumin 2.2 g/dL (3.5-5.2) L Globulin 3.4 g/dL Albumin/Globulin Ratio 0.6 (1.0-2.7) L Objective: GENERAL: A well-developed female, NAD HEENT: Fairly negative. NAD NECK: Supple. No jugular venous distention. LUNGS: stable breath sounds without rhonchi; Moderate air entry. without wheeze CARDIAC: S1 and S2. RRR without murmurs, rubs, or gallops. ABDOMEN: Soft, nontender, and nondistended. no HSM EXTREMITIES: No cyanosis or clubbing. No edema. NEUROLOGICAL: Grossly nonfocal. contracted and withdrawn reviewed and edited MARCELO BIRMINGHAM Jul 03, 2016 07:22
[2016-07-03 07:53] VITALS: BP 112/72
--- NOTE | 2016-07-03 07:57 | General Progress Note ---
Assessment/Plan Problem List: (1) Hypothyroid ICD Codes: E03.9 - Hypothyroid SNOMED: 76728183 (2) Septic shock ICD Codes: A41.9 - Sepsis, unspecified organism; R65.21 - Severe sepsis with septic shock SNOMED: 87097684 (3) Acute renal failure ICD Codes: N17.9 - Acute kidney failure, unspecified SNOMED: 69198494 Qualifiers: Qualified Codes: N17.0 - Acute kidney failure with tubular necrosis (4) Sepsis ICD Codes: A41.9 - Sepsis, unspecified organism SNOMED: 83654924 (5) Altered mental status ICD Codes: R41.82 - Altered mental status, unspecified SNOMED: 777878492 Qualifiers: Qualified Codes: R41.0 - Disorientation, unspecified (6) Acute delirium ICD Codes: R41.0 - Acute delirium SNOMED: 5092896 (7) UTI (lower urinary tract infection) ICD Codes: N39.0 - UTI (lower urinary tract infection) SNOMED: 0701398 Status: stable Assessment/Plan monitor bp ivf GI eval for gt wean o2 monitor abg abx per ID tele monitoring. Subjective ROS Limited/Unobtainable: Yes Constitutional: Reports: malaise, weakness HEENT: Reports: no symptoms Cardiovascular: Reports: no symptoms Respiratory: Reports: no symptoms Gastrointestinal/Abdominal: Reports: difficulty swallowing Genitourinary: Reports: no symptoms Neurologic/Psychiatric: Reports: pre-existing deficit Endocrine: Reports: no symptoms Hematologic/Lymphatic: Reports: no symptoms Allergies: Coded Allergies: No Known Allergies (Unverified , 04/18/12) All Systems: reviewed and negative except above Subjective same. drowsy and lethargic at times. staff unable to place ngt. family wants ngt /gt if needed. failed repeat swallow eval Objective Last 24 Hour Vital Signs Date Time Temp Pulse Resp B/P Pulse Ox O2 Delivery O2 Flow Rate FiO2 07/03/16 07:53 98.1 77 20 112/72 95 Room Air 07/03/16 04:20 98.3 88 18 129/83 94 Room Air 07/03/16 04:00 84 07/03/16 00:36 98.5 90 18 125/78 96 Room Air 07/03/16 00:00 84 07/02/16 20:00 98.0 101 20 140/86 96 Room Air 07/02/16 20:00 88 07/02/16 19:12 Room Air 07/02/16 19:12 96 Room Air 07/02/16 16:00 97.8 100 22 139/78 96 Room Air 07/02/16 16:00 82 07/02/16 14:00 77 16 107/75 95 Room Air 07/02/16 13:00 98 16 107/75 96 Room Air 07/02/16 12:00 98.4 86 16 110/82 96 Room Air 07/02/16 12:00 93 07/02/16 11:00 98.4 79 16 111/67 97 Room Air 07/02/16 10:00 83 16 109/84 96 Room Air 07/02/16 09:00 93 16 95/59 97 Room Air 07/02/16 08:00 98.0 98 16 104/51 95 Room Air 07/02/16 08:00 79 Intake and Output 07/02/16 07/03/16 19:00 07:00 Intake Total 600 ml 410 ml Output Total 450 ml 1400 ml Balance 150 ml -990 ml IV Total 600 ml 410 ml Output Urine Total 450 ml 1400 ml # Bowel Movements 3 3 Laboratory Tests 07/02/16 08:40: White Blood Count 10.9H, Red Blood Count 3.13L, Hemoglobin 9.4L, Hematocrit 28.2L, Mean Corpuscular Volume 90, Mean Corpuscular Hemoglobin 30.0, Mean Corpuscular Hemoglobin Concent 33.2, Red Cell Distribution Width 13.7, Platelet Count 123L, Mean Platelet Volume 10.4H, Neutrophils (%) (Auto) 50.8, Lymphocytes (%) (Auto) 28.8, Monocytes (%) (Auto) 7.9, Eosinophils (%) (Auto) 11.9H, Basophils (%) (Auto) 0.6 07/03/16 05:30: Sodium Level 135, Potassium Level 4.3, Chloride Level 104, Carbon Dioxide Level 15L, Anion Gap 16H, Blood Urea Nitrogen 7, Creatinine 1.3H, Estimat Glomerular Filtration Rate , Glucose Level 58L, Calcium Level 7.9L, Total Bilirubin 0.6, Aspartate Amino Transf (AST/SGOT) 15, Alanine Aminotransferase (ALT/SGPT) 8, Alkaline Phosphatase 73, Total Protein 5.6L, Albumin 2.2L, Globulin 3.4, Albumin /Globulin Ratio 0.6L Height (Feet): 5 Height (Inches): 3.00 Weight (Pounds): 110 Objective General Appearance: WD/WN, lethargic, confused Neck: supple Cardiovascular: normal rate, regular rhythm Respiratory/Chest: lungs clear, normal breath sounds, no respiratory distress, no accessory muscle use Abdomen: normal bowel sounds, non tender, soft, no organomegaly Edema: no edema noted Arm (L), no edema noted Arm (R), no edema noted Leg (L), no edema noted Leg (R), no edema noted Pedal (L), no edema noted Pedal (R), no edema noted Generalized Neurologic: disoriented Skin: normal pigmentation, warm/dry HA FRANCIS Jul 03, 2016 07:57
[2016-07-03] MEDS: Multivitamin 5ml Liquid GT SCH (09:00)
[2016-07-03] MEDS ORDERED: Multivitamin 5ml Liquid ORAL SCH (09:00)
[2016-07-03] MEDS ORDERED: Aspirin Baby 81mg ORAL SCH (09:00)
[2016-07-03] MEDS: Aspirin EC 81mg tab ORAL SCH (09:00)
[2016-07-03] MEDS: Vitamin D 1000 IU Tab ORAL SCH (09:00)
[2016-07-03] MEDS: Megace 400mg/10ml Susp NG SCH ×2 (09:00→18:32)
[2016-07-03] MEDS: Pantoprazole Inj IVP SCH (09:14)
--- NOTE | 2016-07-03 10:07 | Diagnostic Imaging Report ---
Indications: Is a gastric tube placement Technique: Portable supine AP abdomen Findings: Comparison: 07/02/16 Tip of nasogastric tube projects over the region of the distal thoracic esophagus. Left retrocardiac opacity and lucency again noted. Bowel gas pattern remains unremarkable. Vascular calcifications, thoracolumbar vertebral degenerative changes, T12 and L1 vertebral body compression fractures all again noted. Goldstein catheter projects over lower pelvis. IMPRESSION: High position of nasogastric tube in distal thoracic esophagus, recommend advancement 15 cm No evidence of acute abdominopelvic disease, unchanged Retrocardiac opacity most likely hiatal hernia. Atelectasis or pneumonia not excludable. Other stable chronic changes as described
--- NOTE | 2016-07-03 11:00 | Infectious Diseases Prog Note ---
Assessment/Plan Assessment/Plan antibiotics : ceftaroline A 1. klebsiella UTI 2. shock resolved 3. respiratory failure resolved 4. renal failure improving 5. leucocytosis improving P 1. d/c ceftaroline 2. start and continue iv ceftriaxone 2 more days 3. will follow up cultures Subjective ROS Limited/Unobtainable: Yes Allergies: Coded Allergies: No Known Allergies (Unverified , 04/18/12) Objective Vital Signs Last 24 Hour Vital Signs Date Time Temp Pulse Resp B/P Pulse Ox O2 Delivery O2 Flow Rate FiO2 07/03/16 09:40 Room Air 21 07/03/16 09:40 96 Room Air 21 07/03/16 08:00 81 07/03/16 07:53 98.1 77 20 112/72 95 Room Air 07/03/16 04:20 98.3 88 18 129/83 94 Room Air 07/03/16 04:00 84 07/03/16 00:36 98.5 90 18 125/78 96 Room Air 07/03/16 00:00 84 07/02/16 20:00 98.0 101 20 140/86 96 Room Air 07/02/16 20:00 88 07/02/16 19:12 Room Air 07/02/16 19:12 96 Room Air 07/02/16 16:00 97.8 100 22 139/78 96 Room Air 07/02/16 16:00 82 07/02/16 14:00 77 16 107/75 95 Room Air 07/02/16 13:00 98 16 107/75 96 Room Air 07/02/16 12:00 98.4 86 16 110/82 96 Room Air 07/02/16 12:00 93 07/02/16 11:00 98.4 79 16 111/67 97 Room Air Height (Feet): 5 Height (Inches): 3.00 Weight (Pounds): 110 Respiratory/Chest: lungs clear Cardiovascular: normal rate, regular rhythm, no gallop/murmur Abdomen: soft, non tender Extremities: no edema, other - right IJ catheter Laboratory Tests Test 07/03/16 05:30 Sodium Level 135 mEQ/L (135-145) Potassium Level 4.3 mEQ/L (3.4-4.9) Chloride Level 104 mEQ/L (98-107) Carbon Dioxide Level 15 mEQ/L (20-30) L Anion Gap 16 (5-15) H Blood Urea Nitrogen 7 mg/dL (7-23) Creatinine 1.3 mg/dL (0.5-0.9) H Estimat Glomerular Filtration Rate mL/min (>60) Glucose Level 58 mg/dL (74-106) L Calcium Level 7.9 mg/dL (8.6-10.2) L Total Bilirubin 0.6 mg/dL (0.0-1.2) Aspartate Amino Transf (AST/SGOT) 15 U/L (5-40) Alanine Aminotransferase (ALT/SGPT) 8 U/L (3-33) Alkaline Phosphatase 73 U/L (35-104) Total Protein 5.6 g/dL (6.6-8.7) L Albumin 2.2 g/dL (3.5-5.2) L Globulin 3.4 g/dL Albumin/Globulin Ratio 0.6 (1.0-2.7) L DAMIAN GUZMAN Jul 03, 2016 11:00
[2016-07-03 11:57] VITALS: BP 113/73
[2016-07-03] MEDS: cefTRIAXone 1 GM in D5W 55 ML IVPB SCH (12:30)
[2016-07-03 16:00] VITALS: BP 123/72
--- NOTE | 2016-07-03 16:06 | Diagnostic Imaging Report ---
Indications: Nasogastric tube repositioning Technique: Portable supine AP abdomen at 1325 Findings: Comparison: 0945 Nasogastric tube tip projects significantly to the left of midline over the region of the left lung base. No other change. IMPRESSION: Apparent malposition of nasogastric tube, may be within hiatal hernia or left lower lobe bronchus. Chest radiograph recommended for further evaluation.
--- NOTE | 2016-07-03 18:32 | Nephrology Progress Note ---
Assessment/Plan Problem List: (1) Pyelonephritis (2) Acute hypernatremia (3) Dehydration (4) Sepsis (5) MARCELLE (acute kidney injury) (6) Septic shock (7) Respiratory alkalosis Plan still needs iv rehydration, lab trend better, iv adjusted,continuing rx klebsiella uti Subjective ROS Limited/Unobtainable: Yes Objective Objective Last 24 Hour Vital Signs Date Time Temp Pulse Resp B/P Pulse Ox O2 Delivery O2 Flow Rate FiO2 07/03/16 16:00 98.1 80 14 123/72 96 Nasal Cannula 2.0 07/03/16 12:00 81 07/03/16 11:57 97.3 84 20 113/73 97 Nasal Cannula 2.0 07/03/16 09:40 Room Air 21 07/03/16 09:40 96 Room Air 21 07/03/16 08:00 81 07/03/16 07:53 98.1 77 20 112/72 95 Room Air 07/03/16 04:20 98.3 88 18 129/83 94 Room Air 07/03/16 04:00 84 07/03/16 00:36 98.5 90 18 125/78 96 Room Air 07/03/16 00:00 84 07/02/16 20:00 98.0 101 20 140/86 96 Room Air 07/02/16 20:00 88 07/02/16 19:12 Room Air 07/02/16 19:12 96 Room Air Intake and Output 07/02/16 07/03/16 19:00 07:00 Intake Total 600 ml 410 ml Output Total 450 ml 1400 ml Balance 150 ml -990 ml IV Total 600 ml 410 ml Output Urine Total 450 ml 1400 ml # Bowel Movements 3 3 Laboratory Tests 07/03/16 05:30: Sodium Level 135, Potassium Level 4.3, Chloride Level 104, Carbon Dioxide Level 15L, Anion Gap 16H, Blood Urea Nitrogen 7, Creatinine 1.3H, Estimat Glomerular Filtration Rate , Glucose Level 58L, Calcium Level 7.9L, Total Bilirubin 0.6, Aspartate Amino Transf (AST/SGOT) 15, Alanine Aminotransferase (ALT/SGPT) 8, Alkaline Phosphatase 73, Total Protein 5.6L, Albumin 2.2L, Globulin 3.4, Albumin /Globulin Ratio 0.6L Height (Feet): 5 Height (Inches): 3.00 Weight (Pounds): 110 General Appearance: confused EENT: normal ENT inspection Cardiovascular: normal rate, regular rhythm Respiratory/Chest: rhonchi - bilaterally Abdomen: no organomegaly Extremities: other - contractures Neurologic: motor weakness JILL GASPAR Jul 03, 2016 18:32
--- NOTE | 2016-07-03 19:24 | General Progress Note ---
Assessment/Plan Assessment/Plan Assessment - s/p failed NGT by staff respiratory therapist - NGT placed by GI - gastric contents aspirated, but tip appeared coiled in a hiatal hernia --> tube removed - OBS - Respiratory failure - CRI - malnutrition Recommendation - meds po - crush with apple sauce - hold off on po diet - likely at significant aspiration risk - will plan PEG early next week - will discuss with family and arrange Thank you Morenita Christy MD Subjective Allergies: Coded Allergies: No Known Allergies (Unverified , 04/18/12) Objective Last 24 Hour Vital Signs Date Time Temp Pulse Resp B/P Pulse Ox O2 Delivery O2 Flow Rate FiO2 07/03/16 16:00 98.1 80 14 123/72 96 Nasal Cannula 2.0 07/03/16 12:00 81 07/03/16 11:57 97.3 84 20 113/73 97 Nasal Cannula 2.0 07/03/16 09:40 Room Air 21 07/03/16 09:40 96 Room Air 21 07/03/16 08:00 81 07/03/16 07:53 98.1 77 20 112/72 95 Room Air 07/03/16 04:20 98.3 88 18 129/83 94 Room Air 07/03/16 04:00 84 07/03/16 00:36 98.5 90 18 125/78 96 Room Air 07/03/16 00:00 84 07/02/16 20:00 98.0 101 20 140/86 96 Room Air 07/02/16 20:00 88 Intake and Output 07/02/16 07/03/16 19:00 07:00 Intake Total 600 ml 410 ml Output Total 450 ml 1400 ml Balance 150 ml -990 ml IV Total 600 ml 410 ml Output Urine Total 450 ml 1400 ml # Bowel Movements 3 3 Laboratory Tests 07/03/16 05:30: Sodium Level 135, Potassium Level 4.3, Chloride Level 104, Carbon Dioxide Level 15L, Anion Gap 16H, Blood Urea Nitrogen 7, Creatinine 1.3H, Estimat Glomerular Filtration Rate , Glucose Level 58L, Calcium Level 7.9L, Total Bilirubin 0.6, Aspartate Amino Transf (AST/SGOT) 15, Alanine Aminotransferase (ALT/SGPT) 8, Alkaline Phosphatase 73, Total Protein 5.6L, Albumin 2.2L, Globulin 3.4, Albumin /Globulin Ratio 0.6L Height (Feet): 5 Height (Inches): 3.00 Weight (Pounds): 110 MORENITA CHRISTY Jul 03, 2016 19:24
[2016-07-03 20:00] VITALS: BP 130/79
[2016-07-03] MEDS: D5 1/4NS w/KCl 20mEq 1,000 ML IV SCH (22:30)
[2016-07-03] MEDS: Atorvastatin 20mg tab ORAL SCH (22:30)
[2016-07-04] VITALS (7 sets, daily range): BP systolic 89–123; BP diastolic 43–78
[2016-07-04] MEDS: Levothyroxine 125mcg tab ORAL SCH (06:24)
--- NOTE | 2016-07-04 07:53 | General Progress Note ---
Assessment/Plan Problem List: (1) Hypothyroid ICD Codes: E03.9 - Hypothyroid SNOMED: 87332939 (2) Septic shock ICD Codes: A41.9 - Sepsis, unspecified organism; R65.21 - Severe sepsis with septic shock SNOMED: 34577501 (3) Acute renal failure ICD Codes: N17.9 - Acute kidney failure, unspecified SNOMED: 96380446 Qualifiers: Qualified Codes: N17.0 - Acute kidney failure with tubular necrosis (4) Sepsis ICD Codes: A41.9 - Sepsis, unspecified organism SNOMED: 53368285 (5) Altered mental status ICD Codes: R41.82 - Altered mental status, unspecified SNOMED: 286961087 Qualifiers: Qualified Codes: R41.0 - Disorientation, unspecified (6) Acute delirium ICD Codes: R41.0 - Acute delirium SNOMED: 0303347 (7) UTI (lower urinary tract infection) ICD Codes: N39.0 - UTI (lower urinary tract infection) SNOMED: 0995561 Status: stable, not improved Assessment/Plan monitor bp ivf possible gt next week by GI wean o2 monitor abg abx per ID tele monitoring. Subjective ROS Limited/Unobtainable: Yes Constitutional: Reports: malaise, weakness HEENT: Reports: no symptoms Cardiovascular: Reports: no symptoms Respiratory: Reports: no symptoms Gastrointestinal/Abdominal: Reports: difficulty swallowing Genitourinary: Reports: no symptoms Neurologic/Psychiatric: Reports: pre-existing deficit Endocrine: Reports: no symptoms Hematologic/Lymphatic: Reports: no symptoms Allergies: Coded Allergies: No Known Allergies (Unverified , 04/18/12) All Systems: reviewed and negative except above Subjective same. drowsy and lethargic at times.unable to place ngt. family wants ngt/gt if needed. failed repeat swallow eval. Objective Last 24 Hour Vital Signs Date Time Temp Pulse Resp B/P Pulse Ox O2 Delivery O2 Flow Rate FiO2 07/04/16 04:19 98.6 93 18 101/78 93 Room Air 07/04/16 04:00 84 07/04/16 00:39 98.8 90 17 100/74 95 Room Air 07/04/16 00:00 90 07/03/16 20:41 97 Room Air 21 07/03/16 20:41 Room Air 07/03/16 20:00 106 07/03/16 20:00 97.7 102 13 130/79 97 Room Air 07/03/16 16:00 98.1 80 14 123/72 96 Nasal Cannula 2.0 07/03/16 16:00 85 07/03/16 12:00 81 07/03/16 11:57 97.3 84 20 113/73 97 Nasal Cannula 2.0 07/03/16 09:40 Room Air 21 07/03/16 09:40 96 Room Air 21 07/03/16 08:00 81 07/03/16 07:53 98.1 77 20 112/72 95 Room Air Intake and Output 07/03/16 07/04/16 19:00 07:00 Intake Total 425 ml Output Total 300 ml 1325 ml Balance -300 ml -900 ml IV Total 425 ml Output Urine Total 300 ml 1325 ml # Bowel Movements 2 1 Height (Feet): 5 Height (Inches): 3.00 Weight (Pounds): 110 Objective General Appearance: WD/WN, lethargic, confused Neck: supple Cardiovascular: normal rate, regular rhythm Respiratory/Chest: lungs clear, normal breath sounds, no respiratory distress, no accessory muscle use Abdomen: normal bowel sounds, non tender, soft, no organomegaly Edema: no edema noted Arm (L), no edema noted Arm (R), no edema noted Leg (L), no edema noted Leg (R), no edema noted Pedal (L), no edema noted Pedal (R), no edema noted Generalized Neurologic: disoriented Skin: normal pigmentation, warm/dry HA FRANCIS Jul 04, 2016 07:53
[2016-07-04] MEDS: Multivitamin 5ml Liquid GT SCH (08:40)
[2016-07-04] MEDS: Megace 400mg/10ml Susp NG SCH ×2 (08:40→17:53)
[2016-07-04] MEDS: Pantoprazole Inj IVP SCH (08:41)
[2016-07-04] MEDS: Aspirin EC 81mg tab ORAL SCH (08:41)
[2016-07-04] MEDS: Vitamin D 1000 IU Tab ORAL SCH (08:42)
--- NOTE | 2016-07-04 08:44 | Critical Care Progress Note ---
Assessment/Plan Assessment/Plan IMPRESSION: Respiratory failure, mostly due to metabolic acidosis (improved), presumed sepsis, shock, hypothermia, hypotension, history of dementia, history congestive heart failure, history of coronary artery disease, history of hypertension, possible acute on chronic renal failure, significant lactic acidemia, protein-calorie malnutrition, and profound leukocytosis. PLAN exam stable respiratory may same low flow oxygen chest XR negative and reviewed all noted and reviewed maintain blood pressure now improved support clinically dc planning optimize and advance care medications/laboratory data/nursing notes reviewed in detail note reviewed and edited care discussed with RN and RT Critical Care - Subjective Interval Events: care noted findings reviewed ROS Limited/Unobtainable: Yes Condition: stable EKG Rhythm: Sinus Rhythm I&O: Intake and Output 07/03/16 07/04/16 19:00 07:00 Intake Total 425 ml Output Total 300 ml 1325 ml Balance -300 ml -900 ml IV Total 425 ml Output Urine Total 300 ml 1325 ml # Bowel Movements 2 1 Critical Care - Objective ET-Tube: 8.0 ET Position: 24 Last 24 Hour Vital Signs Date Time Temp Pulse Resp B/P Pulse Ox O2 Delivery O2 Flow Rate FiO2 07/04/16 04:19 98.6 93 18 101/78 93 Room Air 07/04/16 04:00 84 07/04/16 00:39 98.8 90 17 100/74 95 Room Air 07/04/16 00:00 90 07/03/16 20:41 97 Room Air 21 07/03/16 20:41 Room Air 07/03/16 20:00 106 07/03/16 20:00 97.7 102 13 130/79 97 Room Air 07/03/16 16:00 98.1 80 14 123/72 96 Nasal Cannula 2.0 07/03/16 16:00 85 07/03/16 12:00 81 07/03/16 11:57 97.3 84 20 113/73 97 Nasal Cannula 2.0 07/03/16 09:40 Room Air 21 07/03/16 09:40 96 Room Air 21 Labs: Labs Test 07/02/16 05:00 07/02/16 08:40 07/03/16 05:30 Sodium Level 137 mEQ/L (135-145) 135 mEQ/L (135-145) Potassium Level 4.2 mEQ/L (3.4-4.9) 4.3 mEQ/L (3.4-4.9) Chloride Level 107 mEQ/L (98-107) 104 mEQ/L (98-107) Carbon Dioxide Level 16 mEQ/L (20-30) 15 mEQ/L (20-30) Anion Gap 14 (5-15) 16 (5-15) Blood Urea Nitrogen 8 mg/dL (7-23) 7 mg/dL (7-23) Creatinine 1.3 mg/dL (0.5-0.9) 1.3 mg/dL (0.5-0.9) Estimat Glomerular Filtration Rate mL/min (>60) mL/min (>60) Glucose Level 81 mg/dL (74-106) 58 mg/dL (74-106) Calcium Level 7.8 mg/dL (8.6-10.2) 7.9 mg/dL (8.6-10.2) Total Bilirubin 0.5 mg/dL (0.0-1.2) 0.6 mg/dL (0.0-1.2) Aspartate Amino Transf (AST/SGOT) 15 U/L (5-40) 15 U/L (5-40) Alanine Aminotransferase (ALT/SGPT) 9 U/L (3-33) 8 U/L (3-33) Alkaline Phosphatase 69 U/L (35-104) 73 U/L (35-104) Total Protein 5.3 g/dL (6.6-8.7) 5.6 g/dL (6.6-8.7) Albumin 2.1 g/dL (3.5-5.2) 2.2 g/dL (3.5-5.2) Globulin 3.2 g/dL 3.4 g/dL Albumin/Globulin Ratio 0.6 (1.0-2.7) 0.6 (1.0-2.7) White Blood Count 10.9 K/UL (4.8-10.8) Red Blood Count 3.13 M/UL (4.20-5.40) Hemoglobin 9.4 G/DL (12.0-16.0) Hematocrit 28.2 % (37.0-47.0) Mean Corpuscular Volume 90 FL (80-99) Mean Corpuscular Hemoglobin 30.0 PG (27.0-31.0) Mean Corpuscular Hemoglobin Concent 33.2 G/DL (32.0-36.0) Red Cell Distribution Width 13.7 % (11.6-14.8) Platelet Count 123 K/UL (150-450) Mean Platelet Volume 10.4 FL (6.5-10.1) Neutrophils (%) (Auto) 50.8 % (45.0-75.0) Lymphocytes (%) (Auto) 28.8 % (20.0-45.0) Monocytes (%) (Auto) 7.9 % (1.0-10.0) Eosinophils (%) (Auto) 11.9 % (0.0-3.0) Basophils (%) (Auto) 0.6 % (0.0-2.0) Objective: GENERAL: A well-developed female, NAD HEENT: Fairly negative. NAD NECK: Supple. No jugular venous distention. LUNGS: stable breath sounds without rhonchi; Moderate air entry. without wheeze CARDIAC: S1 and S2. RRR without murmurs, rubs, or gallops. ABDOMEN: Soft, nontender, and nondistended. no HSM EXTREMITIES: No cyanosis or clubbing. No edema. NEUROLOGICAL: Grossly nonfocal. contracted and withdrawn reviewed and edited MARCELO BIRMINGHAM Jul 04, 2016 08:44
[2016-07-04 10:20] LABS: ANION GAP 20 (5-15); CARBON DIOXIDE 15 mEQ/L (20-30); CHLORIDE 98 mEQ/L (98-107); CREATININE 1.2 mg/dL (0.5-0.9); HEMOLYSIS 5; POTASSIUM 3.7 mEQ/L (3.4-4.9); SODIUM 133 mEQ/L (135-145)
--- NOTE | 2016-07-04 10:43 | Infectious Diseases Prog Note ---
Assessment/Plan Assessment/Plan antibiotics : ceftriaxone A 1. klebsiella UTI 2. shock resolved 3. respiratory failure resolved 4. renal failure improving 5. leucocytosis improving P 1. continue iv ceftriaxone 1 more day 2. will follow up cultures Subjective ROS Limited/Unobtainable: Yes Allergies: Coded Allergies: No Known Allergies (Unverified , 04/18/12) Objective Vital Signs Last 24 Hour Vital Signs Date Time Temp Pulse Resp B/P Pulse Ox O2 Delivery O2 Flow Rate FiO2 07/04/16 08:00 98.2 93 20 105/66 98 Room Air 07/04/16 08:00 81 07/04/16 06:30 96 Room Air 07/04/16 06:30 Room Air 07/04/16 04:19 98.6 93 18 101/78 93 Room Air 07/04/16 04:00 84 07/04/16 00:39 98.8 90 17 100/74 95 Room Air 07/04/16 00:00 90 07/03/16 20:41 97 Room Air 21 07/03/16 20:41 Room Air 07/03/16 20:00 106 07/03/16 20:00 97.7 102 13 130/79 97 Room Air 07/03/16 16:00 98.1 80 14 123/72 96 Nasal Cannula 2.0 07/03/16 16:00 85 07/03/16 12:00 81 07/03/16 11:57 97.3 84 20 113/73 97 Nasal Cannula 2.0 Height (Feet): 5 Height (Inches): 3.00 Weight (Pounds): 110 Respiratory/Chest: lungs clear Cardiovascular: normal rate, regular rhythm, no gallop/murmur Abdomen: soft, non tender Extremities: no edema Laboratory Tests Test 07/04/16 05:50 Sodium Level 133 mEQ/L (135-145) L Potassium Level 3.7 mEQ/L (3.4-4.9) Chloride Level 98 mEQ/L (98-107) Carbon Dioxide Level 15 mEQ/L (20-30) L Anion Gap 20 (5-15) H Blood Urea Nitrogen 5 mg/dL (7-23) L Creatinine 1.2 mg/dL (0.5-0.9) H Estimat Glomerular Filtration Rate mL/min (>60) Glucose Level 76 mg/dL (74-106) Calcium Level 8.0 mg/dL (8.6-10.2) L DAMIAN GUZMAN Jul 04, 2016 10:43
[2016-07-04] MEDS: cefTRIAXone 1 GM in D5W 55 ML IVPB SCH (13:02)
[2016-07-04] MEDS ORDERED: Tubing IV Secondary IV ONE ×2 (15:09→16:07)
[2016-07-04] MEDS ORDERED: NS 275ml ONE (15:10)
[2016-07-04] MEDS: D5 1/4NS w/KCl 20mEq 1,000 ML IV SCH (16:49)
--- NOTE | 2016-07-04 17:12 | Diagnostic Imaging Report ---
APPROVED REPORT CPT Code: 94992 Present Symptoms Lower Extremity Pain: Bilateral Comments: Difficult study due to patient being contracted. BILATERAL: Imaging reveals a patent deep venous system bilaterally. There is no evidence of thrombus within the femoral, popliteal or tibial segments. The greater saphenous veins are also within normal limits. Doppler indicates normal spontaneous flow within these segments.
--- NOTE | 2016-07-04 18:29 | Nephrology Progress Note ---
Assessment/Plan Problem List: (1) Pyelonephritis (2) Acute hypernatremia (3) Dehydration (4) Sepsis (5) MARCELLE (acute kidney injury) (6) Septic shock (7) Respiratory alkalosis Plan still needs iv rehydration, lab trend better, iv adjusted,continuing rx klebsiella uti Subjective ROS Limited/Unobtainable: Yes Objective Objective Last 24 Hour Vital Signs Date Time Temp Pulse Resp B/P Pulse Ox O2 Delivery O2 Flow Rate FiO2 07/04/16 12:00 98.0 89 20 100/56 98 Room Air 07/04/16 12:00 73 07/04/16 08:00 98.2 93 20 105/66 98 Room Air 07/04/16 08:00 81 07/04/16 06:30 96 Room Air 07/04/16 06:30 Room Air 07/04/16 04:19 98.6 93 18 101/78 93 Room Air 07/04/16 04:00 84 07/04/16 00:39 98.8 90 17 100/74 95 Room Air 07/04/16 00:00 90 07/03/16 20:41 97 Room Air 21 07/03/16 20:41 Room Air 07/03/16 20:00 106 07/03/16 20:00 97.7 102 13 130/79 97 Room Air Intake and Output 07/03/16 07/04/16 19:00 07:00 Intake Total 425 ml Output Total 300 ml 1325 ml Balance -300 ml -900 ml IV Total 425 ml Output Urine Total 300 ml 1325 ml # Bowel Movements 2 1 Laboratory Tests 07/04/16 05:50: Sodium Level 133L, Potassium Level 3.7, Chloride Level 98, Carbon Dioxide Level 15L, Anion Gap 20H, Blood Urea Nitrogen 5L, Creatinine 1.2H, Estimat Glomerular Filtration Rate , Glucose Level 76, Calcium Level 8.0L Height (Feet): 5 Height (Inches): 3.00 Weight (Pounds): 110 General Appearance: confused EENT: normal ENT inspection Neck: normal alignment Cardiovascular: normal rate, regular rhythm Respiratory/Chest: rhonchi - bilaterally Abdomen: soft, no organomegaly Extremities: other - contractures Neurologic: disoriented JILL GASPAR Jul 04, 2016 18:29
[2016-07-04] MEDS: Atorvastatin 20mg tab ORAL SCH (21:16)
[2016-07-05] VITALS: BP 91/58
[2016-07-05 04:00] VITALS: BP 91/61
[2016-07-05] MEDS: Levothyroxine 125mcg tab ORAL SCH (05:42)
[2016-07-05 06:41] LABS: MEAN CORPUSCULAR HEMOGLOBIN 30.5 PG (27.0-31.0); MEAN CORPUSCULAR HGB CONC 32.9 G/DL (32.0-36.0); MEAN CORPUSCULAR VOLUME 93 FL (80-99); MEAN PLATELET VOLUME 9.7 FL (6.5-10.1); PLATELET COUNT 137 K/UL (150-450); RED BLOOD COUNT 2.51 M/UL (4.20-5.40); RED CELL DISTRIBUTION WIDTH 13.8 % (11.6-14.8); WHITE BLOOD COUNT 8.6 K/UL (4.8-10.8)
--- NOTE | 2016-07-05 07:55 | General Progress Note ---
Assessment/Plan Problem List: (1) Hypothyroid ICD Codes: E03.9 - Hypothyroid SNOMED: 90270375 (2) Septic shock ICD Codes: A41.9 - Sepsis, unspecified organism; R65.21 - Severe sepsis with septic shock SNOMED: 13823314 (3) Acute renal failure ICD Codes: N17.9 - Acute kidney failure, unspecified SNOMED: 43001560 Qualifiers: Qualified Codes: N17.0 - Acute kidney failure with tubular necrosis (4) Sepsis ICD Codes: A41.9 - Sepsis, unspecified organism SNOMED: 87160345 (5) Altered mental status ICD Codes: R41.82 - Altered mental status, unspecified SNOMED: 650637148 Qualifiers: Qualified Codes: R41.0 - Disorientation, unspecified (6) Acute delirium ICD Codes: R41.0 - Acute delirium SNOMED: 8042478 (7) UTI (lower urinary tract infection) ICD Codes: N39.0 - UTI (lower urinary tract infection) SNOMED: 0490504 Status: stable, progressing Assessment/Plan monitor bp ivf possible gt next week by GI wean o2 monitor abg abx per ID tele monitoring. repeat cbc today may need transfusion Subjective ROS Limited/Unobtainable: Yes Constitutional: Reports: malaise, weakness HEENT: Reports: no symptoms Cardiovascular: Reports: no symptoms Respiratory: Reports: no symptoms Gastrointestinal/Abdominal: Reports: difficulty swallowing, poor appetite Genitourinary: Reports: no symptoms Neurologic/Psychiatric: Reports: pre-existing deficit Endocrine: Reports: no symptoms Hematologic/Lymphatic: Reports: anemia Allergies: Coded Allergies: No Known Allergies (Unverified , 04/18/12) All Systems: reviewed and negative except above Subjective same. drowsy and lethargic at times.unable to place ngt. family wants ngt/gt if needed. failed repeat swallow eval. decrease h/h noted. ?lab error Objective Last 24 Hour Vital Signs Date Time Temp Pulse Resp B/P Pulse Ox O2 Delivery O2 Flow Rate FiO2 07/05/16 04:00 97.7 77 16 91/61 96 Room Air 07/05/16 04:00 91 07/05/16 00:00 97.2 96 16 91/58 96 Room Air 07/05/16 00:00 75 07/04/16 21:23 123/56 07/04/16 20:00 92 07/04/16 20:00 97.3 92 16 89/43 96 Room Air 07/04/16 16:00 73 07/04/16 16:00 97.6 69 18 98/52 96 Room Air 07/04/16 12:00 98.0 89 20 100/56 98 Room Air 07/04/16 12:00 73 07/04/16 08:00 98.2 93 20 105/66 98 Room Air 07/04/16 08:00 81 Intake and Output 07/04/16 07/05/16 18:59 06:59 Intake Total 564 ml 600 ml Output Total 800 ml Balance 564 ml -200 ml IV Total 564 ml 600 ml Output Urine Total 800 ml # Bowel Movements 1 Laboratory Tests 07/05/16 05:30: White Blood Count 8.6, Red Blood Count 2.51L, Hemoglobin 7.6L, Hematocrit 23.2L , Mean Corpuscular Volume 93, Mean Corpuscular Hemoglobin 30.5, Mean Corpuscular Hemoglobin Concent 32.9, Red Cell Distribution Width 13.8, Platelet Count 137L, Mean Platelet Volume 9.7, Neutrophils (%) (Auto) , Lymphocytes (%) ( Auto) , Monocytes (%) (Auto) , Eosinophils (%) (Auto) , Basophils (%) (Auto) , Neutrophils % (Manual) [Pending], Lymphocytes % (Manual) [Pending], Platelet Estimate [Pending], Platelet Morphology [Pending], Sodium Level [Pending], Potassium Level [Pending], Chloride Level [Pending], Carbon Dioxide Level [ Pending], Blood Urea Nitrogen [Pending], Creatinine [Pending], Estimat Glomerular Filtration Rate [Pending], Glucose Level [Pending], Calcium Level [ Pending], Magnesium Level [Pending], Total Bilirubin [Pending], Aspartate Amino Transf (AST/SGOT) [Pending], Alanine Aminotransferase (ALT/SGPT) [Pending], Alkaline Phosphatase [Pending], Pro-B-Type Natriuretic Peptide [Pending], Total Protein [Pending], Albumin [Pending], Globulin [Pending] Height (Feet): 5 Height (Inches): 3.00 Weight (Pounds): 110 Objective General Appearance: WD/WN, lethargic, confused Neck: supple Cardiovascular: normal rate, regular rhythm Respiratory/Chest: lungs clear, normal breath sounds, no respiratory distress, no accessory muscle use Abdomen: normal bowel sounds, non tender, soft, no organomegaly Edema: no edema noted Arm (L), no edema noted Arm (R), no edema noted Leg (L), no edema noted Leg (R), no edema noted Pedal (L), no edema noted Pedal (R), no edema noted Generalized Neurologic: disoriented Skin: normal pigmentation, warm/dry HA FRANCIS Jul 05, 2016 07:55
[2016-07-05 08:00] VITALS: BP 96/50
[2016-07-05 09:14] LABS: ALANINE AMINOTRANSFERASE 7 U/L (3-33); ALBUMIN/GLOBULIN RATIO 0.8 (1.0-2.7); ANION GAP 16 (5-15); ASPARTATE AMINO TRANSFERASE 13 U/L (5-40); CALCIUM 7.9 mg/dL (8.6-10.2); CARBON DIOXIDE 18 mEQ/L (20-30); CHLORIDE 97 mEQ/L (98-107); CREATININE 1.2 mg/dL (0.5-0.9); HEMOLYSIS 0; MAGNESIUM 1.3 mg/dL (1.7-2.5); POTASSIUM 4.1 mEQ/L (3.4-4.9); SODIUM 131 mEQ/L (135-145); TOTAL PROTEIN 5.1 g/dL (6.6-8.7)
[2016-07-05] MEDS: Multivitamin 5ml Liquid GT SCH (10:19)
[2016-07-05] MEDS: Vitamin D 1000 IU Tab ORAL SCH (10:19)
[2016-07-05] MEDS: Pantoprazole Inj IVP SCH (10:19)
[2016-07-05] MEDS: Aspirin EC 81mg tab ORAL SCH (10:19)
--- NOTE | 2016-07-05 10:41 | Critical Care Progress Note ---
Assessment/Plan Assessment/Plan IMPRESSION: Respiratory failure, mostly due to metabolic acidosis (improved), presumed sepsis, shock, hypothermia, hypotension, history of dementia, history congestive heart failure, history of coronary artery disease, history of hypertension, possible acute on chronic renal failure, significant lactic acidemia, protein-calorie malnutrition, and profound leukocytosis. PLAN exam stable as is respiratory may same from prior low flow oxygen chest XR negative and reviewed all noted and reviewed transfusion recommended maintain blood pressure now improved support clinically dc planning optimize and advance care medications/laboratory data/nursing notes reviewed in detail note reviewed and edited care discussed with RN and RT Critical Care - Subjective Interval Events: care noted on oxygen no distress ROS Limited/Unobtainable: Yes EKG Rhythm: Sinus Rhythm I&O: Intake and Output 07/04/16 07/05/16 19:00 07:00 Intake Total 564 ml 600 ml Output Total 800 ml Balance 564 ml -200 ml IV Total 564 ml 600 ml Output Urine Total 800 ml # Bowel Movements 1 Critical Care - Objective ET-Tube: 8.0 ET Position: 24 Last 24 Hour Vital Signs Date Time Temp Pulse Resp B/P Pulse Ox O2 Delivery O2 Flow Rate FiO2 07/05/16 08:00 98.2 82 16 96/50 95 Room Air 07/05/16 04:00 97.7 77 16 91/61 96 Room Air 07/05/16 04:00 91 07/05/16 00:00 97.2 96 16 91/58 96 Room Air 07/05/16 00:00 75 07/04/16 21:23 123/56 07/04/16 20:00 92 07/04/16 20:00 97.3 92 16 89/43 96 Room Air 07/04/16 16:00 73 07/04/16 16:00 97.6 69 18 98/52 96 Room Air 07/04/16 12:00 98.0 89 20 100/56 98 Room Air 07/04/16 12:00 73 Labs: Labs Test 07/03/16 05:30 07/04/16 05:50 07/05/16 05:30 Sodium Level 135 mEQ/L (135-145) 133 mEQ/L (135-145) 131 mEQ/L (135-145) Potassium Level 4.3 mEQ/L (3.4-4.9) 3.7 mEQ/L (3.4-4.9) 4.1 mEQ/L (3.4-4.9) Chloride Level 104 mEQ/L (98-107) 98 mEQ/L (98-107) 97 mEQ/L (98-107) Carbon Dioxide Level 15 mEQ/L (20-30) 15 mEQ/L (20-30) 18 mEQ/L (20-30) Anion Gap 16 (5-15) 20 (5-15) 16 (5-15) Blood Urea Nitrogen 7 mg/dL (7-23) 5 mg/dL (7-23) 3 mg/dL (7-23) Creatinine 1.3 mg/dL (0.5-0.9) 1.2 mg/dL (0.5-0.9) 1.2 mg/dL (0.5-0.9) Estimat Glomerular Filtration Rate mL/min (>60) mL/min (>60) mL/min (>60) Glucose Level 58 mg/dL (74-106) 76 mg/dL (74-106) 91 mg/dL (74-106) Calcium Level 7.9 mg/dL (8.6-10.2) 8.0 mg/dL (8.6-10.2) 7.9 mg/dL (8.6-10.2) Total Bilirubin 0.6 mg/dL (0.0-1.2) < 0.2 mg/dL (0.0-1.2) Aspartate Amino Transf (AST/SGOT) 15 U/L (5-40) 13 U/L (5-40) Alanine Aminotransferase (ALT/SGPT) 8 U/L (3-33) 7 U/L (3-33) Alkaline Phosphatase 73 U/L (35-104) 69 U/L (35-104) Total Protein 5.6 g/dL (6.6-8.7) 5.1 g/dL (6.6-8.7) Albumin 2.2 g/dL (3.5-5.2) 2.3 g/dL (3.5-5.2) Globulin 3.4 g/dL 2.8 g/dL Albumin/Globulin Ratio 0.6 (1.0-2.7) 0.8 (1.0-2.7) White Blood Count 8.6 K/UL (4.8-10.8) Red Blood Count 2.51 M/UL (4.20-5.40) Hemoglobin 7.6 G/DL (12.0-16.0) Hematocrit 23.2 % (37.0-47.0) Mean Corpuscular Volume 93 FL (80-99) Mean Corpuscular Hemoglobin 30.5 PG (27.0-31.0) Mean Corpuscular Hemoglobin Concent 32.9 G/DL (32.0-36.0) Red Cell Distribution Width 13.8 % (11.6-14.8) Platelet Count 137 K/UL (150-450) Mean Platelet Volume 9.7 FL (6.5-10.1) Neutrophils (%) (Auto) % (45.0-75.0) Lymphocytes (%) (Auto) % (20.0-45.0) Monocytes (%) (Auto) % (1.0-10.0) Eosinophils (%) (Auto) % (0.0-3.0) Basophils (%) (Auto) % (0.0-2.0) Magnesium Level 1.3 mg/dL (1.7-2.5) Pro-B-Type Natriuretic Peptide 2503 pg/mL (0-450) Objective: GENERAL: A well-developed female, NAD HEENT: Fairly negative. NAD NECK: Supple. No jugular venous distention. LUNGS: stable breath sounds without rhonchi; Moderate air entry. without wheeze CARDIAC: S1 and S2. RRR without murmurs, rubs, or gallops. ABDOMEN: Soft, nontender, and nondistended. no HSM EXTREMITIES: No cyanosis or clubbing. No edema. NEUROLOGICAL: Grossly nonfocal. contracted and withdrawn reviewed and edited MARCELO BIRMINGHAM Jul 05, 2016 10:41
[2016-07-05 10:51] LABS: BAND NEUTROPHILS % (MANUAL) 0 % (0-8); BASOPHILS % (MANUAL) 0 % (0-2); EOSINOPHILS % (MANUAL) 8 % (0-3); LYMPHOCYTES % (MANUAL) 28 % (20-45); NEUTROPHILS % (MANUAL) 57 % (45-75); PLATELET ESTIMATE DECREASED; PLATELET MORPHOLOGY NORMAL; TOTAL CELLS COUNTED 100
[2016-07-05 10:52] LABS: HYPOCHROMASIA 1+
--- NOTE | 2016-07-05 11:04 | Infectious Diseases Prog Note ---
Assessment/Plan Assessment/Plan A 1. klebsiella UTI s/p RX 3. shock resolved 4. respiratory failure resolved 5. renal failure improving 6. leucocytosis resolved P 1. discontinue ceftriaxone Subjective ROS Limited/Unobtainable: Yes Allergies: Coded Allergies: No Known Allergies (Unverified , 04/18/12) Objective Vital Signs Last 24 Hour Vital Signs Date Time Temp Pulse Resp B/P Pulse Ox O2 Delivery O2 Flow Rate FiO2 07/05/16 08:00 98.2 82 16 96/50 95 Room Air 07/05/16 04:00 97.7 77 16 91/61 96 Room Air 07/05/16 04:00 91 07/05/16 00:00 97.2 96 16 91/58 96 Room Air 07/05/16 00:00 75 07/04/16 21:23 123/56 07/04/16 20:00 92 07/04/16 20:00 97.3 92 16 89/43 96 Room Air 07/04/16 16:00 73 07/04/16 16:00 97.6 69 18 98/52 96 Room Air 07/04/16 12:00 98.0 89 20 100/56 98 Room Air 07/04/16 12:00 73 Height (Feet): 5 Height (Inches): 3.00 Weight (Pounds): 110 General Appearance: no acute distress HEENT: mucous membranes moist Respiratory/Chest: lungs clear Cardiovascular: normal rate Abdomen: soft, non tender Genitourinary: other - Goldstein catheter Extremities: no edema Neurologic/Psychiatric: other - sleeping Laboratory Tests Test 07/05/16 05:30 White Blood Count 8.6 K/UL (4.8-10.8) Red Blood Count 2.51 M/UL (4.20-5.40) L Hemoglobin 7.6 G/DL (12.0-16.0) L Hematocrit 23.2 % (37.0-47.0) L Mean Corpuscular Volume 93 FL (80-99) Mean Corpuscular Hemoglobin 30.5 PG (27.0-31.0) Mean Corpuscular Hemoglobin Concent 32.9 G/DL (32.0-36.0) Red Cell Distribution Width 13.8 % (11.6-14.8) Platelet Count 137 K/UL (150-450) L Mean Platelet Volume 9.7 FL (6.5-10.1) Neutrophils (%) (Auto) % (45.0-75.0) Lymphocytes (%) (Auto) % (20.0-45.0) Monocytes (%) (Auto) % (1.0-10.0) Eosinophils (%) (Auto) % (0.0-3.0) Basophils (%) (Auto) % (0.0-2.0) Differential Total Cells Counted 100 Neutrophils % (Manual) 57 % (45-75) Lymphocytes % (Manual) 28 % (20-45) Monocytes % (Manual) 7 % (1-10) Eosinophils % (Manual) 8 % (0-3) H Basophils % (Manual) 0 % (0-2) Band Neutrophils 0 % (0-8) Platelet Estimate Decreased L Platelet Morphology Normal Hypochromasia 1+ Sodium Level 131 mEQ/L (135-145) L Potassium Level 4.1 mEQ/L (3.4-4.9) Chloride Level 97 mEQ/L (98-107) L Carbon Dioxide Level 18 mEQ/L (20-30) L Anion Gap 16 (5-15) H Blood Urea Nitrogen 3 mg/dL (7-23) L Creatinine 1.2 mg/dL (0.5-0.9) H Estimat Glomerular Filtration Rate mL/min (>60) Glucose Level 91 mg/dL (74-106) Calcium Level 7.9 mg/dL (8.6-10.2) L Magnesium Level 1.3 mg/dL (1.7-2.5) L Total Bilirubin < 0.2 mg/dL (0.0-1.2) Aspartate Amino Transf (AST/SGOT) 13 U/L (5-40) Alanine Aminotransferase (ALT/SGPT) 7 U/L (3-33) Alkaline Phosphatase 69 U/L (35-104) Pro-B-Type Natriuretic Peptide 2503 pg/mL (0-450) H Total Protein 5.1 g/dL (6.6-8.7) L Albumin 2.3 g/dL (3.5-5.2) L Globulin 2.8 g/dL Albumin/Globulin Ratio 0.8 (1.0-2.7) L Current Medications Medications (Trade) Dose Ordered Sig/Trip Route PRN Reason Start Time Stop Time Status Last Admin Dose Admin Acetaminophen (Tylenol) 650 mg Q4H PRN NG Prn Headache/Temp > 101 07/02/16 16:45 08/01/16 16:44 Acetaminophen/ Hydrocodone Bitart ([place] 5/325) 1 tab Q4H PRN ORAL For MODERATE Pain 07/02/16 17:00 07/09/16 16:59 Aspirin (Ecotrin) 81 mg DAILY ORAL 07/03/16 09:00 08/02/16 08:59 07/05/16 10:19 Atorvastatin Calcium (Lipitor) 20 mg BEDTIME ORAL 07/02/16 21:00 08/01/16 20:59 07/04/16 21:16 Ceftriaxone Sodium 1 gm/ Dextrose 55 ml @ 110 mls/hr Q24H IVPB 07/03/16 13:00 07/10/16 12:59 07/04/16 13:02 Dextrose/ Electrolytes (D5 0.25%NS w/ KCl 20mEq) 1,000 ml @ 50 mls/hr Q20H IV 07/03/16 20:00 08/02/16 19:59 07/04/16 16:49 Levothyroxine Sodium (Synthroid) 125 mcg ACBREAKFAST ORAL 07/03/16 06:30 08/02/16 06:29 07/05/16 05:42 Multivitamins (Multivitamin Hexavitamin) 5 ml DAILY GT 07/03/16 09:00 08/02/16 08:59 07/05/16 10:19 Pantoprazole 40 mg 40 mg DAILY IVP 07/03/16 09:00 08/02/16 08:59 07/05/16 10:19 Vitamin D (Vitamin D) 1 intlu DAILY ORAL 07/03/16 09:00 08/02/16 08:59 07/05/16 10:19 JAMEEL TRIPATHI Jul 05, 2016 11:04
[2016-07-05] MEDS: D5 1/4NS w/KCl 20mEq 1,000 ML IV SCH (11:59)
[2016-07-05 12:00] VITALS: BP 106/56
[2016-07-05 12:13] LABS: BASOPHILS % (AUTO) 1.2 % (0.0-2.0); EOSINOPHILS % (AUTO) 13.6 % (0.0-3.0); LYMPHOCYTES % (AUTO) 29.8 % (20.0-45.0); MEAN CORPUSCULAR HEMOGLOBIN 29.7 PG (27.0-31.0); MEAN CORPUSCULAR HGB CONC 32.2 G/DL (32.0-36.0); MEAN CORPUSCULAR VOLUME 92 FL (80-99); MEAN PLATELET VOLUME 9.3 FL (6.5-10.1); MONOCYTES % (AUTO) 9.8 % (1.0-10.0); NEUTROPHILS % (AUTO) 45.6 % (45.0-75.0); PLATELET COUNT 170 K/UL (150-450); RED BLOOD COUNT 3.22 M/UL (4.20-5.40); RED CELL DISTRIBUTION WIDTH 13.9 % (11.6-14.8); WHITE BLOOD COUNT 9.8 K/UL (4.8-10.8)
[2016-07-05 16:00] VITALS: BP 90/51
[2016-07-05 20:00] VITALS: BP 133/64
[2016-07-05] MEDS: Atorvastatin 20mg tab ORAL SCH (20:15)
--- NOTE | 2016-07-05 20:37 | Progress Note ---
DATE: 07/03/2016 CARDIOLOGY PROGRESS NOTE: SUBJECTIVE: The patient is off pressors. She is more alert. She is very hard of hearing. She is very confused. Some congestion noted. The patient has failed a swallow evaluation so far. OBJECTIVE: VITAL SIGNS: Monitor sinus tachycardia. Blood pressure 112/72, pulse 77, respiratory 20, afebrile, and oxygen saturation on room air is 94% to 96%. HEENT: Temporal wasting. Pale conjunctivae. Oropharynx clear. NECK: Supple. LUNGS: With coarse breath sounds. CARDIAC: Regular rhythm rate. Normal S1, S2 with a fourth heart sound. ABDOMEN: Soft. EXTREMITIES: No edema. LABORATORY AND DIAGNOSTIC DATA: Sodium 135, potassium 4.3, bicarb 15, BUN 7, and creatinine 1.3. Albumin 2.2. Abdomen x-ray revealed NG tube initially in the lung little and replaced. IMPRESSION: 1. Systemic inflammatory response syndrome. 2. Urinary tract infection with sepsis and shock. 3. Severe protein-calorie malnutrition. 4. Dysphagia. 5. Hypothyroidism. 6. Anemia. 7. Severe dehydration and hypernatremia. 8. Acute on chronic renal failure. 9. Ischemic cardiomyopathy. 10. Chronic systolic and diastolic congestive heart failure. PLAN: 1. Feedings by NG tube. 2. Antimicrobial therapy. 3. DVT and stress ulcer prophylaxis. 4. Cautious titration of baseline antihypertensive. Yohan Corbett M.D. DR: Ignacio JOB#: [id number] CC:
--- NOTE | 2016-07-05 21:17 | Progress Note ---
DATE: 07/04/2016 CARDIOLOGY PROGRESS NOTE: OBJECTIVE: The patient has labile blood pressure at times 89/43 to 123/56, heart rate 92, respiratory rate 16, and afebrile. Oxygen saturation 96% on room air. The patient is on NG-tube feedings. LUNGS: Bilateral breath sounds. Scattered rhonchi. HEART: Regular rhythm and rate. Normal S1, S2 with a fourth heart sound. ABDOMEN: Soft and nontender. EXTREMITIES: No edema. LABORATORY DATA: Sodium 133, potassium 3.7, bicarb 15, BUN 5, and creatinine 1.2. IMPRESSION: 1. Dehydration, hypernatremia, and hypovolemia, corrected. 2. Systemic inflammatory response syndrome due to urinary tract infection with sepsis and shock, improving . 3. Dysphagia. 4. Severe protein-calorie malnutrition. 5. Ischemic cardiomyopathy. PLAN: 1. Hold cardiovascular medications due to low range blood pressure at times. 2. DVT and stress ulcer prophylaxis. 3. Maintenance of IV hydration. 4. NG-tube feedings. 5. May need permanent G-tube. 6. Continue thyroid replacement. 7. Antimicrobials. 8. Skin care. Yohan Corbett M.D. DR: Ignacio JOB#: [id number] CC:
[2016-07-06] VITALS: BP 102/56
[2016-07-06 06:27] LABS: BASOPHILS % (AUTO) 0.7 % (0.0-2.0); LYMPHOCYTES % (AUTO) 23.9 % (20.0-45.0); MEAN CORPUSCULAR HEMOGLOBIN 30.7 PG (27.0-31.0); MEAN CORPUSCULAR HGB CONC 33.5 G/DL (32.0-36.0); MEAN CORPUSCULAR VOLUME 92 FL (80-99); MEAN PLATELET VOLUME 8.6 FL (6.5-10.1); NEUTROPHILS % (AUTO) 61.3 % (45.0-75.0); PLATELET COUNT 180 K/UL (150-450); RED BLOOD COUNT 3.19 M/UL (4.20-5.40); RED CELL DISTRIBUTION WIDTH 13.8 % (11.6-14.8); WHITE BLOOD COUNT 11.8 K/UL (4.8-10.8)
[2016-07-06] MEDS: Levothyroxine 125mcg tab ORAL SCH (06:58)
--- NOTE | 2016-07-06 07:44 | General Progress Note ---
Assessment/Plan Problem List: (1) Hypothyroid ICD Codes: E03.9 - Hypothyroid SNOMED: 22117218 (2) Septic shock ICD Codes: A41.9 - Sepsis, unspecified organism; R65.21 - Severe sepsis with septic shock SNOMED: 15701529 (3) Acute renal failure ICD Codes: N17.9 - Acute kidney failure, unspecified SNOMED: 53686247 Qualifiers: Qualified Codes: N17.0 - Acute kidney failure with tubular necrosis (4) Sepsis ICD Codes: A41.9 - Sepsis, unspecified organism SNOMED: 75824280 (5) Altered mental status ICD Codes: R41.82 - Altered mental status, unspecified SNOMED: 111325230 Qualifiers: Qualified Codes: R41.0 - Disorientation, unspecified (6) Acute delirium ICD Codes: R41.0 - Acute delirium SNOMED: 1790333 (7) UTI (lower urinary tract infection) ICD Codes: N39.0 - UTI (lower urinary tract infection) SNOMED: 7444172 Status: stable, not improved, unchanged Assessment/Plan monitor bp ivf possible gt by GI off bp meds wean o2 monitor abg abx per ID tele monitoring. monitor labs Subjective ROS Limited/Unobtainable: Yes Constitutional: Reports: malaise, weakness HEENT: Reports: no symptoms Cardiovascular: Reports: no symptoms Respiratory: Reports: no symptoms Gastrointestinal/Abdominal: Reports: difficulty swallowing, poor appetite Genitourinary: Reports: no symptoms Neurologic/Psychiatric: Reports: pre-existing deficit Endocrine: Reports: no symptoms Hematologic/Lymphatic: Reports: no symptoms Allergies: Coded Allergies: No Known Allergies (Unverified , 04/18/12) All Systems: reviewed and negative except above Subjective same. drowsy and lethargic at times.unable to place ngt. family wants ngt/gt if needed. failed repeat swallow eval. decrease h/h noted. labile bp. trending low. Objective Last 24 Hour Vital Signs Date Time Temp Pulse Resp B/P Pulse Ox O2 Delivery O2 Flow Rate FiO2 07/06/16 04:08 84 07/06/16 00:00 98.6 82 20 102/56 96 Room Air 07/05/16 23:58 86 07/05/16 20:00 87 07/05/16 20:00 98.0 78 20 133/64 95 07/05/16 16:00 72 07/05/16 16:00 98.2 75 20 90/51 95 07/05/16 12:00 86 07/05/16 12:00 98.2 82 16 106/56 95 Room Air 07/05/16 08:00 98.2 82 16 96/50 95 Room Air 07/05/16 08:00 77 Intake and Output 07/05/16 07/06/16 19:00 07:00 Intake Total 600 ml 600 ml Output Total 1100 ml 500 ml Balance -500 ml 100 ml IV Total 600 ml 600 ml Output Urine Total 1100 ml 500 ml Laboratory Tests 07/05/16 11:45: White Blood Count 9.8, Red Blood Count 3.22L, Hemoglobin 9.5L, Hematocrit 29.7L , Mean Corpuscular Volume 92, Mean Corpuscular Hemoglobin 29.7, Mean Corpuscular Hemoglobin Concent 32.2, Red Cell Distribution Width 13.9, Platelet Count 170, Mean Platelet Volume 9.3, Neutrophils (%) (Auto) 45.6, Lymphocytes (% ) (Auto) 29.8, Monocytes (%) (Auto) 9.8, Eosinophils (%) (Auto) 13.6H, Basophils (%) (Auto) 1.2 07/06/16 06:00: White Blood Count 11.8H, Red Blood Count 3.19L, Hemoglobin 9.8L, Hematocrit 29.3L, Mean Corpuscular Volume 92, Mean Corpuscular Hemoglobin 30.7, Mean Corpuscular Hemoglobin Concent 33.5, Red Cell Distribution Width 13.8, Platelet Count 180, Mean Platelet Volume 8.6, Neutrophils (%) (Auto) 61.3, Lymphocytes (% ) (Auto) 23.9, Monocytes (%) (Auto) 7.0, Eosinophils (%) (Auto) 7.0H, Basophils (%) (Auto) 0.7, Sodium Level [Pending], Potassium Level [Pending], Chloride Level [Pending], Carbon Dioxide Level [Pending], Blood Urea Nitrogen [Pending], Creatinine [Pending], Estimat Glomerular Filtration Rate [Pending], Glucose Level [Pending], Calcium Level [Pending], Total Bilirubin [Pending], Aspartate Amino Transf (AST/SGOT) [Pending], Alanine Aminotransferase (ALT/SGPT) [Pending] , Alkaline Phosphatase [Pending], Total Protein [Pending], Albumin [Pending], Globulin [Pending] Height (Feet): 5 Height (Inches): 3.00 Weight (Pounds): 110 Objective General Appearance: WD/WN, lethargic, confused Neck: supple Cardiovascular: normal rate, regular rhythm Respiratory/Chest: lungs clear, normal breath sounds, no respiratory distress, no accessory muscle use Abdomen: normal bowel sounds, non tender, soft, no organomegaly Edema: no edema noted Arm (L), no edema noted Arm (R), no edema noted Leg (L), no edema noted Leg (R), no edema noted Pedal (L), no edema noted Pedal (R), no edema noted Generalized Neurologic: disoriented Skin: normal pigmentation, warm/dry HA FRANCIS Jul 06, 2016 07:44
[2016-07-06 07:48] LABS: ALANINE AMINOTRANSFERASE 7 U/L (3-33); ALBUMIN/GLOBULIN RATIO 0.6 (1.0-2.7); ANION GAP 17 (5-15); ASPARTATE AMINO TRANSFERASE 19 U/L (5-40); CALCIUM 8.1 mg/dL (8.6-10.2); CARBON DIOXIDE 18 mEQ/L (20-30); CHLORIDE 96 mEQ/L (98-107); CREATININE 1.2 mg/dL (0.5-0.9); HEMOLYSIS 49; POTASSIUM 4.3 mEQ/L (3.4-4.9); SODIUM 131 mEQ/L (135-145)
[2016-07-06 08:03] VITALS: BP 127/86
--- NOTE | 2016-07-06 08:12 | Critical Care Progress Note ---
Assessment/Plan Assessment/Plan IMPRESSION: Respiratory failure, mostly due to metabolic acidosis (improved), presumed sepsis, shock, hypothermia, hypotension, history of dementia, history congestive heart failure, history of coronary artery disease, history of hypertension, possible acute on chronic renal failure, significant lactic acidemia, protein-calorie malnutrition, and profound leukocytosis. PLAN pulmonary without distress d/w nursing low flow oxygen chest XR none new all noted and reviewed follow up HH support clinically dc planning optimize and advance care medications/laboratory data/nursing notes reviewed in detail note reviewed and edited care discussed with RN and RT Critical Care - Subjective Interval Events: findings noted comfortable at present ROS Limited/Unobtainable: Yes EKG Rhythm: Sinus Rhythm I&O: Intake and Output 07/05/16 07/06/16 19:00 07:00 Intake Total 600 ml 600 ml Output Total 1100 ml 500 ml Balance -500 ml 100 ml IV Total 600 ml 600 ml Output Urine Total 1100 ml 500 ml Critical Care - Objective ET-Tube: 8.0 ET Position: 24 Last 24 Hour Vital Signs Date Time Temp Pulse Resp B/P Pulse Ox O2 Delivery O2 Flow Rate FiO2 07/06/16 08:03 96.6 100 18 127/86 94 Room Air 07/06/16 04:08 84 07/06/16 00:00 98.6 82 20 102/56 96 Room Air 07/05/16 23:58 86 07/05/16 20:00 87 07/05/16 20:00 98.0 78 20 133/64 95 07/05/16 16:00 72 07/05/16 16:00 98.2 75 20 90/51 95 07/05/16 12:00 86 07/05/16 12:00 98.2 82 16 106/56 95 Room Air Labs: Laboratory Tests Test 07/05/16 11:45 07/06/16 06:00 White Blood Count 9.8 K/UL (4.8-10.8) 11.8 K/UL (4.8-10.8) H Red Blood Count 3.22 M/UL (4.20-5.40) L 3.19 M/UL (4.20-5.40) L Hemoglobin 9.5 G/DL (12.0-16.0) L 9.8 G/DL (12.0-16.0) L Hematocrit 29.7 % (37.0-47.0) L 29.3 % (37.0-47.0) L Mean Corpuscular Volume 92 FL (80-99) 92 FL (80-99) Mean Corpuscular Hemoglobin 29.7 PG (27.0-31.0) 30.7 PG (27.0-31.0) Mean Corpuscular Hemoglobin Concent 32.2 G/DL (32.0-36.0) 33.5 G/DL (32.0-36.0) Red Cell Distribution Width 13.9 % (11.6-14.8) 13.8 % (11.6-14.8) Platelet Count 170 K/UL (150-450) 180 K/UL (150-450) Mean Platelet Volume 9.3 FL (6.5-10.1) 8.6 FL (6.5-10.1) Neutrophils (%) (Auto) 45.6 % (45.0-75.0) 61.3 % (45.0-75.0) Lymphocytes (%) (Auto) 29.8 % (20.0-45.0) 23.9 % (20.0-45.0) Monocytes (%) (Auto) 9.8 % (1.0-10.0) 7.0 % (1.0-10.0) Eosinophils (%) (Auto) 13.6 % (0.0-3.0) H 7.0 % (0.0-3.0) H Basophils (%) (Auto) 1.2 % (0.0-2.0) 0.7 % (0.0-2.0) Sodium Level 131 mEQ/L (135-145) L Potassium Level 4.3 mEQ/L (3.4-4.9) Chloride Level 96 mEQ/L (98-107) L Carbon Dioxide Level 18 mEQ/L (20-30) L Anion Gap 17 (5-15) H Blood Urea Nitrogen 3 mg/dL (7-23) L Creatinine 1.2 mg/dL (0.5-0.9) H Estimat Glomerular Filtration Rate mL/min (>60) Glucose Level 87 mg/dL (74-106) Calcium Level 8.1 mg/dL (8.6-10.2) L Total Bilirubin 0.4 mg/dL (0.0-1.2) Aspartate Amino Transf (AST/SGOT) 19 U/L (5-40) Alanine Aminotransferase (ALT/SGPT) 7 U/L (3-33) Alkaline Phosphatase 77 U/L (35-104) Total Protein 6.0 g/dL (6.6-8.7) L Albumin 2.4 g/dL (3.5-5.2) L Globulin 3.6 g/dL Albumin/Globulin Ratio 0.6 (1.0-2.7) L Objective: GENERAL: A well-developed female, NAD HEENT: Fairly negative. NAD NECK: Supple. No jugular venous distention. LUNGS: stable breath sounds without rhonchi; Moderate air entry. without wheeze CARDIAC: S1 and S2. RRR without murmurs, rubs, or gallops. ABDOMEN: Soft, nontender, and nondistended. no HSM EXTREMITIES: No cyanosis or clubbing. No edema. NEUROLOGICAL: Grossly nonfocal. contracted and withdrawn reviewed and edited MARCELO BIRMINGHAM Jul 06, 2016 08:12
--- NOTE | 2016-07-06 11:06 | Infectious Diseases Prog Note ---
Assessment/Plan Assessment/Plan antibiotics : none A 1. klebsiella UTI s/p rx 2. shock resolved 3. respiratory failure resolved 4. renal failure improving 5. leucocytosis improving P 1. continue off antibiotics Subjective ROS Limited/Unobtainable: Yes Allergies: Coded Allergies: No Known Allergies (Unverified , 04/18/12) Objective Vital Signs Last 24 Hour Vital Signs Date Time Temp Pulse Resp B/P Pulse Ox O2 Delivery O2 Flow Rate FiO2 07/06/16 08:03 96.6 100 18 127/86 94 Room Air 07/06/16 04:08 84 07/06/16 00:00 98.6 82 20 102/56 96 Room Air 07/05/16 23:58 86 07/05/16 20:00 87 07/05/16 20:00 98.0 78 20 133/64 95 07/05/16 16:00 72 07/05/16 16:00 98.2 75 20 90/51 95 07/05/16 12:00 86 07/05/16 12:00 98.2 82 16 106/56 95 Room Air Height (Feet): 5 Height (Inches): 3.00 Weight (Pounds): 110 Respiratory/Chest: lungs clear Cardiovascular: normal rate, regular rhythm, no gallop/murmur Abdomen: soft, non tender Extremities: no edema Laboratory Tests Test 07/05/16 11:45 07/06/16 06:00 White Blood Count 9.8 K/UL (4.8-10.8) 11.8 K/UL (4.8-10.8) H Red Blood Count 3.22 M/UL (4.20-5.40) L 3.19 M/UL (4.20-5.40) L Hemoglobin 9.5 G/DL (12.0-16.0) L 9.8 G/DL (12.0-16.0) L Hematocrit 29.7 % (37.0-47.0) L 29.3 % (37.0-47.0) L Mean Corpuscular Volume 92 FL (80-99) 92 FL (80-99) Mean Corpuscular Hemoglobin 29.7 PG (27.0-31.0) 30.7 PG (27.0-31.0) Mean Corpuscular Hemoglobin Concent 32.2 G/DL (32.0-36.0) 33.5 G/DL (32.0-36.0) Red Cell Distribution Width 13.9 % (11.6-14.8) 13.8 % (11.6-14.8) Platelet Count 170 K/UL (150-450) 180 K/UL (150-450) Mean Platelet Volume 9.3 FL (6.5-10.1) 8.6 FL (6.5-10.1) Neutrophils (%) (Auto) 45.6 % (45.0-75.0) 61.3 % (45.0-75.0) Lymphocytes (%) (Auto) 29.8 % (20.0-45.0) 23.9 % (20.0-45.0) Monocytes (%) (Auto) 9.8 % (1.0-10.0) 7.0 % (1.0-10.0) Eosinophils (%) (Auto) 13.6 % (0.0-3.0) H 7.0 % (0.0-3.0) H Basophils (%) (Auto) 1.2 % (0.0-2.0) 0.7 % (0.0-2.0) Sodium Level 131 mEQ/L (135-145) L Potassium Level 4.3 mEQ/L (3.4-4.9) Chloride Level 96 mEQ/L (98-107) L Carbon Dioxide Level 18 mEQ/L (20-30) L Anion Gap 17 (5-15) H Blood Urea Nitrogen 3 mg/dL (7-23) L Creatinine 1.2 mg/dL (0.5-0.9) H Estimat Glomerular Filtration Rate mL/min (>60) Glucose Level 87 mg/dL (74-106) Calcium Level 8.1 mg/dL (8.6-10.2) L Total Bilirubin 0.4 mg/dL (0.0-1.2) Aspartate Amino Transf (AST/SGOT) 19 U/L (5-40) Alanine Aminotransferase (ALT/SGPT) 7 U/L (3-33) Alkaline Phosphatase 77 U/L (35-104) Total Protein 6.0 g/dL (6.6-8.7) L Albumin 2.4 g/dL (3.5-5.2) L Globulin 3.6 g/dL Albumin/Globulin Ratio 0.6 (1.0-2.7) L DAMIAN GUZMAN Jul 06, 2016 11:06
[2016-07-06] MEDS: Vitamin D 1000 IU Tab ORAL SCH (11:22)
[2016-07-06] MEDS: Pantoprazole Inj IVP SCH (11:22)
[2016-07-06] MEDS: Aspirin EC 81mg tab ORAL SCH (11:22)
[2016-07-06] MEDS: D5 1/4NS w/KCl 20mEq 1,000 ML IV SCH (11:22)
[2016-07-06] MEDS: Multivitamin 5ml Liquid GT SCH (11:22)
[2016-07-06] MEDS ORDERED: NS 110ml ONE (11:36)
[2016-07-06 11:39] VITALS: BP 109/63
--- NOTE | 2016-07-06 15:00 | Wound Care Consultation ---
Wound Assessment Wound Assessment : Wound Present on Admission: Yes New Wound: No Status Change of Wound: No Wound Location Body Site: perineal area Wound Type: chemical burn Mau Test: Does not Mau Percent of Wound [place]/Red: 100 Wound Drainage Amount: None Wound Drainage Odor: None/Absent Tissue Surrounding Wound: Erythemic Wound General Appearance: Reddened Wound Comment #1 chemical burn on perineal area Recommendation -Apply skin barrier cream -Keep clean and dry -Turn and reposition -Optimize nutrition -Assess and f/u with accordingly for any changes LOBO SOTO RN Jul 06, 2016 15:00
--- NOTE | 2016-07-06 15:16 | Nephrology Progress Note ---
Assessment/Plan Problem List: (1) Pyelonephritis (2) Acute hypernatremia (3) Dehydration (4) Sepsis (5) MARCELLE (acute kidney injury) (6) Septic shock (7) Respiratory alkalosis (8) Hyponatremia Plan still needs iv rehydration, lab trend better, iv adjusted,NS as Na lower continuing rx klebsiella uti Subjective ROS Limited/Unobtainable: Yes Objective Objective Last 24 Hour Vital Signs Date Time Temp Pulse Resp B/P Pulse Ox O2 Delivery O2 Flow Rate FiO2 07/06/16 12:00 87 07/06/16 11:39 96.9 95 18 109/63 93 Room Air 07/06/16 08:03 96.6 100 18 127/86 94 Room Air 07/06/16 08:00 89 07/06/16 04:08 84 07/06/16 00:00 98.6 82 20 102/56 96 Room Air 07/05/16 23:58 86 07/05/16 20:00 87 07/05/16 20:00 98.0 78 20 133/64 95 07/05/16 16:00 72 07/05/16 16:00 98.2 75 20 90/51 95 Intake and Output 07/05/16 07/06/16 19:00 07:00 Intake Total 600 ml 600 ml Output Total 1100 ml 500 ml Balance -500 ml 100 ml IV Total 600 ml 600 ml Output Urine Total 1100 ml 500 ml Laboratory Tests 07/06/16 06:00: White Blood Count 11.8H, Red Blood Count 3.19L, Hemoglobin 9.8L, Hematocrit 29.3L, Mean Corpuscular Volume 92, Mean Corpuscular Hemoglobin 30.7, Mean Corpuscular Hemoglobin Concent 33.5, Red Cell Distribution Width 13.8, Platelet Count 180, Mean Platelet Volume 8.6, Neutrophils (%) (Auto) 61.3, Lymphocytes (% ) (Auto) 23.9, Monocytes (%) (Auto) 7.0, Eosinophils (%) (Auto) 7.0H, Basophils (%) (Auto) 0.7, Sodium Level 131L, Potassium Level 4.3, Chloride Level 96L, Carbon Dioxide Level 18L, Anion Gap 17H, Blood Urea Nitrogen 3L, Creatinine 1.2H , Estimat Glomerular Filtration Rate , Glucose Level 87, Calcium Level 8.1L, Total Bilirubin 0.4, Aspartate Amino Transf (AST/SGOT) 19, Alanine Aminotransferase (ALT/SGPT) 7, Alkaline Phosphatase 77, Total Protein 6.0L, Albumin 2.4L, Globulin 3.6, Albumin/Globulin Ratio 0.6L Height (Feet): 5 Height (Inches): 3.00 Weight (Pounds): 110 General Appearance: no apparent distress, confused EENT: normal ENT inspection Neck: normal alignment Cardiovascular: normal rate, regular rhythm Respiratory/Chest: rhonchi - bilaterally Abdomen: non tender Extremities: other - contracted JILL GASPAR Jul 06, 2016 15:16
[2016-07-06 16:00] VITALS: BP 133/64
--- NOTE | 2016-07-06 19:29 | General Progress Note ---
Assessment/Plan Assessment/Plan Assessment - s/p failed NGT - Hiatal hernia - OBS - Respiratory failure - CRI - UTI - Mild Leukocytosis - malnutrition Recommendation - meds po - Hold ASA - Increase IVF until after PEG - GT in am Subjective Allergies: Coded Allergies: No Known Allergies (Unverified , 04/18/12) Subjective No significant events over weekend d/w ID and renal NPO on IVF for PEG in am WBC slightly higher Objective Last 24 Hour Vital Signs Date Time Temp Pulse Resp B/P Pulse Ox O2 Delivery O2 Flow Rate FiO2 07/06/16 16:00 96.4 67 19 133/64 95 Room Air 07/06/16 12:00 87 07/06/16 11:39 96.9 95 18 109/63 93 Room Air 07/06/16 08:03 96.6 100 18 127/86 94 Room Air 07/06/16 08:00 89 07/06/16 04:08 84 07/06/16 00:00 98.6 82 20 102/56 96 Room Air 07/05/16 23:58 86 07/05/16 20:00 87 07/05/16 20:00 98.0 78 20 133/64 95 Intake and Output 07/05/16 07/06/16 19:00 07:00 Intake Total 600 ml 600 ml Output Total 1100 ml 500 ml Balance -500 ml 100 ml IV Total 600 ml 600 ml Output Urine Total 1100 ml 500 ml Laboratory Tests 07/06/16 06:00: White Blood Count 11.8H, Red Blood Count 3.19L, Hemoglobin 9.8L, Hematocrit 29.3L, Mean Corpuscular Volume 92, Mean Corpuscular Hemoglobin 30.7, Mean Corpuscular Hemoglobin Concent 33.5, Red Cell Distribution Width 13.8, Platelet Count 180, Mean Platelet Volume 8.6, Neutrophils (%) (Auto) 61.3, Lymphocytes (% ) (Auto) 23.9, Monocytes (%) (Auto) 7.0, Eosinophils (%) (Auto) 7.0H, Basophils (%) (Auto) 0.7, Sodium Level 131L, Potassium Level 4.3, Chloride Level 96L, Carbon Dioxide Level 18L, Anion Gap 17H, Blood Urea Nitrogen 3L, Creatinine 1.2H , Estimat Glomerular Filtration Rate , Glucose Level 87, Calcium Level 8.1L, Total Bilirubin 0.4, Aspartate Amino Transf (AST/SGOT) 19, Alanine Aminotransferase (ALT/SGPT) 7, Alkaline Phosphatase 77, Total Protein 6.0L, Albumin 2.4L, Globulin 3.6, Albumin/Globulin Ratio 0.6L Height (Feet): 5 Height (Inches): 3.00 Weight (Pounds): 110 Objective Thin WW NCAT supple CTA RRR Soft Flat ND (+) contractures (+) OBS KALEE SERRATO Jul 06, 2016 19:29
[2016-07-06 20:00] VITALS: BP 118/51
[2016-07-06] MEDS: Atorvastatin 20mg tab ORAL SCH (20:22)
[2016-07-07] VITALS (10 sets, daily range): BP systolic 101–123; BP diastolic 47–74
--- NOTE | 2016-07-07 02:27 | Progress Note ---
DATE: 07/06/2016 CARDIOLOGY PROGRESS NOTE SUBJECTIVE: The patient remains withdrawn and lethargic. The patient received a packed red blood cell transfusion yesterday for hemoglobin of 7.6. OBJECTIVE: VITAL SIGNS: Blood pressure 109/63, pulse 95, respirations 18, and afebrile. Room air oxygen saturation is 93% to 96%. HEENT: Pale conjunctivae. Oropharynx clear. NECK: Supple. LUNGS: With good breath sounds. CARDIAC: Regular rhythm and rate. Normal S1 and S2 with a 1/6 systolic apical murmur. ABDOMEN: Soft and nontender. EXTREMITIES: No edema. LABORATORY DATA: Sodium 131, potassium 4.3, bicarb 18, BUN 3, and creatinine 1.2. Albumin 2.4. White count 11.8 and hemoglobin 9.8. IMPRESSION: 1. Anemia status post packed red blood cell transfusion. 2. Sepsis with shock due to urinary tract infection, recovering. 3. Hypothyroidism, on replacement therapy. 4. Acute and chronic diastolic congestive heart failure. 5. Ischemic cardiomyopathy. 6. Dysphagia. 7. Severe protein-calorie malnutrition. 8. Hypomagnesemia. PLAN: 1. Antibiotics. 2. Await G-tube. 3. Continue IV magnesium replacement. 4. Monitor hemoglobin. 5. Restart anti-failure regimen if blood pressure trend remains stable over the next 24 hours. 6. DVT and stress ulcer prophylaxes. 7. Resume anti-platelet therapy following PEG. Yohan Corbett M.D. DR: POOL JOB#: [id number] CC:
--- NOTE | 2016-07-07 03:28 | Progress Note ---
DATE: 07/05/2016 CARDIOLOGY PROGRESS NOTE SUBJECTIVE: The patient is out of the intensive care unit. She is off pressors. She remains lethargic. She is NPO due to dysphagia. OBJECTIVE: VITAL SIGNS: Blood pressure 91/61, pulse 77, respiratory rate 16, afebrile. LUNGS: Bilateral breath sounds. HEART: Regular rhythm and rate. Normal S1, S2 with a 1/6 systolic apical murmur. ABDOMEN: Soft and nontender. EXTREMITIES: With no edema. Capillary refill is diminished. LABORATORY DATA: Sodium 133, potassium 3.7, bicarb 15, BUN 5, and creatinine 1.2 yesterday. Today, sodium 131, potassium 4.1, bicarbonate 18, BUN 3, and creatinine 1.2. Magnesium 1.3. Pro-natriuretic peptide is 2503. Albumin 2.3. White count 8.6 and hemoglobin 7.6. IMPRESSION: 1. Recovering sepsis with shock. 2. Urinary tract infection. 3. Severe anemia. 4. Severe protein-calorie malnutrition. 5. Dysphagia. 6. Hyponatremia. 7. Metabolic acidosis. 8. Severe hypomagnesemia. 9. Acute on chronic diastolic congestive heart failure. 10. Cerebrovascular disease with dementia, hard of hearing. PLAN: 1. Packed red blood cell transfusion. 2. IV magnesium to be ordered. 3. Nutrition by NG tube. 4. May need G-tube. 5. Antibiotics per Infectious Disease document management consultant. 6. Saline hydration. 7. DVT and stress ulcer prophylaxis. 8. Once blood pressure is more stable, anti-failure regimen can be re-titrated. 9. Continue magnesium and thyroid replacement. Yohan Corbett M.D. DR: RASHAWN JOB#: [id number] CC:
[2016-07-07] MEDS ORDERED: ceFAZolin sod 1 GM in D5W 55 ML IVPB ONE (05:00)
[2016-07-07] MEDS: Levothyroxine 125mcg tab ORAL SCH (05:55)
--- NOTE | 2016-07-07 06:51 | Anethesia Preoperative Eval ---
Anesthesia Pre-op PMH/ROS General Date of Evaluation: Jul 07, 2016 Time of Evaluation: 06:49 Anesthesiologist: josie ASA Score: ASA 4 Mallampati Score Class I : Soft palate, uvula, fauces, pillars visible Class II: Soft palate, uvula, fauces visible Class III: Soft palate, base of uvula visible Class IV: Only hard plate visible Mallampati Classification: Class IV Surgeon: sergio Diagnosis: rsp failure Surgical Procedure: egd with PEG Anesthesia History: none Family History: no anesthesia problems Allergies: Coded Allergies: No Known Allergies (Unverified , 04/18/12) Medications: see eMAR Past Medical History Cardiovascular: Reports: CAD, other Pulmonary: Reports: other - resp failur Gastrointestinal/Genitourinary: Reports: CRI Neurologic/Psychiatric: Reports: dementia Endocrine: Reports: hypothyroidism Hematology/Immune: Reports: anemia Musculoskeletal/Integumentary: Denies: DDD, DJD, OA, RA, edema, other PMH Narrative: Respiratory failure, mostly due to metabolic acidosis (improved), presumed sepsis, shock, hypothermia, hypotension, history of dementia, history congestive heart failure, history of coronary artery disease, history of hypertension, possible acute on chronic renal failure, significant lactic acidemia, protein-calorie malnutrition, and profound leukocytosis. Anesthesia Pre-op Phys. Exam Physician Exam Last Vital Signs Date Time Temp Pulse Resp B/P Pulse Ox O2 Delivery O2 Flow Rate FiO2 07/07/16 04:12 98.6 74 17 101/55 95 Room Air 07/03/16 20:41 21 07/03/16 16:00 2.0 Constitutional: other - demented, otherwise stable Neurologic: other Cardiovascular: RRR Respiratory: CTA Gastrointestinal: S/NT/ND Airway Exam Mallampati Classification 3 Mallampati Score: Class IV Neck: thick TMD: limted ROM: limited Dentures: lower, upper Anesthesia Pre-op A/P Studies Pre-op Studies: EKG - sr Risk Assessment & Plan Plan: mac Status Change Before Surgery: No Pre-Antibiotics Drug: ancef Given Within 1 Hr of Incision: No Time Given: 05:00 CLAIR CLEMENTS CRNA Jul 07, 2016 06:51
[2016-07-07 06:59] LABS: BASOPHILS % (AUTO) 0.5 % (0.0-2.0); EOSINOPHILS % (AUTO) 4.5 % (0.0-3.0); LYMPHOCYTES % (AUTO) 15.9 % (20.0-45.0); MEAN CORPUSCULAR HEMOGLOBIN 29.9 PG (27.0-31.0); MEAN CORPUSCULAR HGB CONC 33.1 G/DL (32.0-36.0); MEAN CORPUSCULAR VOLUME 90 FL (80-99); MEAN PLATELET VOLUME 8.3 FL (6.5-10.1); MONOCYTES % (AUTO) 5.1 % (1.0-10.0); NEUTROPHILS % (AUTO) 73.9 % (45.0-75.0); PLATELET COUNT 206 K/UL (150-450); RED BLOOD COUNT 3.47 M/UL (4.20-5.40); RED CELL DISTRIBUTION WIDTH 13.1 % (11.6-14.8); WHITE BLOOD COUNT 11.9 K/UL (4.8-10.8)
[2016-07-07] MEDS ORDERED: Propofol 10mg/ml 20ml IV ONE (07:00)
[2016-07-07] MEDS ORDERED: Lidocaine 1% MPF 10mg/ml 5ml ONE (07:00)
[2016-07-07] MEDS ORDERED: Phenylephrine 10mg/ml Vial ONE (07:00)
--- NOTE | 2016-07-07 07:11 | Pre-Procedure Note/Attestation ---
Pre-Procedure Note/Attestation Complete Prior to Procedure Planned Procedure: not applicable Procedure Narrative: EGD, PEG Indications for Procedure Pre-Operative Diagnosis: Dysphagia Attestation I attest that I discussed the nature of the procedure; its benefits; risks and complications; and alternatives (and the risks and benefits of such alternatives ), prior to the procedure, with the patient (or the patient's legal medical collections representative). I attest that, if there was a reasonable possibility of needing a blood transfusion, the patient (or the patient's legal medical collections representative) was given the [facility] standardized written summary, pursuant to the Bill [place] Blood Safety Act ([place] Health and Safety Code # 1645, as amended). I attest that I re-evaluated the patient just prior to the surgery and that there has been no change in the patient's H&P, except as documented below: KALEE SERRATO Jul 07, 2016 07:11
--- NOTE | 2016-07-07 07:16 | General Progress Note ---
Assessment/Plan Assessment/Plan Assessment - worsening hyponatremia on saline IV - s/p failed NGT - Hiatal hernia - OBS - Respiratory failure - UTI - Mild Leukocytosis - malnutrition Recommendation - Continue NS - monitor Na level - Free water restriction - NPO - ASA on hold - GT today POST EGD ADDENDUM - EGD shows large HH - Much of stomach appears to be in the chest - unable to identify clear landmarks for endoscopic PEG placement - NGT placed under direct vision in gastric cavity - Will check position and begin TF - would elevate HOB and use concentrated TF formula to minimize aspiration risk - Need surgical opinion re GT placement - restart ASA Subjective Allergies: Coded Allergies: No Known Allergies (Unverified , 04/18/12) Subjective seen in GI lab stable overnight labs noted Na lower, at 12 today NPO for PEG Objective Last 24 Hour Vital Signs Date Time Temp Pulse Resp B/P Pulse Ox O2 Delivery O2 Flow Rate FiO2 07/07/16 04:12 98.6 74 17 101/55 95 Room Air 07/07/16 03:40 80 07/07/16 00:25 98.8 88 18 106/65 97 Room Air 07/06/16 23:44 79 07/06/16 20:00 97.9 79 18 118/51 96 Room Air 07/06/16 20:00 91 07/06/16 16:00 96.4 67 19 133/64 95 Room Air 07/06/16 16:00 88 07/06/16 12:00 87 07/06/16 11:39 96.9 95 18 109/63 93 Room Air 07/06/16 08:03 96.6 100 18 127/86 94 Room Air 07/06/16 08:00 89 Intake and Output 07/06/16 07/07/16 19:00 07:00 Intake Total 150 ml 350 ml Output Total 300 ml 1200 ml Balance -150 ml -850 ml IV Total 150 ml 350 ml Output Urine Total 300 ml 1200 ml # Bowel Movements 1 1 Laboratory Tests 07/07/16 05:30: White Blood Count 11.9H, Red Blood Count 3.47L, Hemoglobin 10.4L, Hematocrit 31.3L, Mean Corpuscular Volume 90, Mean Corpuscular Hemoglobin 29.9, Mean Corpuscular Hemoglobin Concent 33.1, Red Cell Distribution Width 13.1, Platelet Count 206, Mean Platelet Volume 8.3, Neutrophils (%) (Auto) 73.9, Lymphocytes (% ) (Auto) 15.9L, Monocytes (%) (Auto) 5.1, Eosinophils (%) (Auto) 4.5H, Basophils (%) (Auto) 0.5, Sodium Level [Pending], Potassium Level [Pending], Chloride Level [Pending], Carbon Dioxide Level [Pending], Blood Urea Nitrogen [ Pending], Creatinine [Pending], Estimat Glomerular Filtration Rate [Pending], Glucose Level [Pending], Calcium Level [Pending] Height (Feet): 5 Height (Inches): 2.99 Weight (Pounds): 102 Objective Thin WW NCAT supple CTA RRR Soft Flat ND (+) contractures (+) OBS KALEE SERRATO Jul 07, 2016 07:16
[2016-07-07 07:20] LABS: ANION GAP 14 (5-15); CARBON DIOXIDE 18 mEQ/L (20-30); CHLORIDE 94 mEQ/L (98-107); CREATININE 1.1 mg/dL (0.5-0.9); HEMOLYSIS 0; POTASSIUM 3.7 mEQ/L (3.4-4.9); SODIUM 126 mEQ/L (135-145)
--- NOTE | 2016-07-07 08:17 | Endoscopy Procedure Note ---
Endoscopy Procedure Note Indication for Procedure: dysphagia Procedures Performed: EGD Operative Findings/Diagnosis: large HH Specimen: none Pt Tolerated Procedure Well: Yes Estimated Blood Loss: none Anesthesiologist: see notes Anesthesia: moderate sedation Medication Given: see anesthesia record Implant(s) used?: No 50 yrs or older w/o bx or poly: Not Applicable 10yrs. F/U not recommended: Not Applicable If not recommended, why?: KALEE SERRATO Jul 07, 2016 08:17
--- NOTE | 2016-07-07 08:18 | Brief Operative Note ---
Immediate Post Operative Note Operative Note Chief Complaint: dysphagia Pre-op Diagnosis: Dysphagia Procedure: EGD Post-op Diagnosis: large HH Surgeon: belem Anesthesiologist: see report Anesthesia: MAC, moderate sedation Specimen: none Complications: none Condition: stable Estimated Blood Loss: none Drains: none Implant(s) used?: No KALEE SERRATO Jul 07, 2016 08:18
--- NOTE | 2016-07-07 08:24 | Immediate Post-Op Evaluation ---
Immediate Post-Op Evalulation Immediate Post-Op Evalulation Procedure: peg/NG plament Date of Evaluation: Jul 07, 2016 Time of Evaluation: 07:55 IV Fluids: 300 Blood Products: 0 Blood Pressure Systolic: 114 Blood Pressure Diastolic: 60 Pulse Rate: 98 Respiratory Rate: 14 O2 Sat by Pulse Oximetry: 99 Nausea: No Vomiting: No Complications ancef give by RN, dr sergio leary and declined to give a sceond dose Patient Status: awake, reacts, patent Hydration Status: adequate Drug: ancef Given Within 1 Hr of Incision: No Time Given: 05:00 CLAIR CLEMENTS CRNA Jul 07, 2016 08:24
--- NOTE | 2016-07-07 08:28 | 48 Hour Post Anesthesia Eval ---
Post Anesthesia Evaluation Procedure: peg/NG plament Date of Evaluation: Jul 07, 2016 Time of Evaluation: 08:25 Blood Pressure Systolic: 114 0: 70 Pulse Rate: 14 Respiratory Rate: 14 Temperature (Fahrenheit): 99.0 O2 Sat by Pulse Oximetry: 99 Airway: patent Nausea: No Vomiting: No Hydration Status: adequate Cardiopulmonary Status: normal Mental Status/LOC: patient returned to baseline Post-Anesthesia Complications: none Follow-up care needed: N/A CLAIR CLEMENTS CRNA Jul 07, 2016 08:28
--- NOTE | 2016-07-07 08:41 | Critical Care Progress Note ---
Assessment/Plan Assessment/Plan IMPRESSION: Respiratory failure, mostly due to metabolic acidosis (improved), presumed sepsis, shock, hypothermia, hypotension, history of dementia, history congestive heart failure, history of coronary artery disease, history of hypertension, possible acute on chronic renal failure, significant lactic acidemia, protein-calorie malnutrition, and profound leukocytosis. PLAN pulmonary without distress no substantial change in exam d/w nursing low flow oxygen chest XR as needed all noted and reviewed follow up HH for change support clinically dc planning hopefully soon optimize and advance care medications/laboratory data/nursing notes reviewed in detail note reviewed and edited care discussed with RN and RT Critical Care - Subjective Interval Events: no distress events reviewed in detail Condition: stable EKG Rhythm: Sinus Rhythm I&O: Intake and Output 07/06/16 07/07/16 18:59 06:59 Intake Total 150 ml 810 ml Output Total 300 ml 1200 ml Balance -150 ml -390 ml IV Total 150 ml 810 ml Output Urine Total 300 ml 1200 ml # Bowel Movements 1 1 Critical Care - Objective ET-Tube: 8.0 ET Position: 24 Last 24 Hour Vital Signs Date Time Temp Pulse Resp B/P Pulse Ox O2 Delivery O2 Flow Rate FiO2 07/07/16 08:30 99.0 100 25 120/63 95 Nasal Cannula 3.0 07/07/16 08:28 14 14 99 07/07/16 08:24 98 14 99 07/07/16 08:16 99.0 106 24 123/68 96 Simple Mask 6.0 07/07/16 08:00 101 26 117/74 97 Simple Mask 6.0 07/07/16 07:55 108 23 113/54 96 Simple Mask 6.0 07/07/16 07:50 99.2 99 20 110/47 99 Simple Mask 6.0 07/07/16 04:12 98.6 74 17 101/55 95 Room Air 07/07/16 03:40 80 07/07/16 00:25 98.8 88 18 106/65 97 Room Air 07/06/16 23:44 79 07/06/16 20:00 97.9 79 18 118/51 96 Room Air 07/06/16 20:00 91 07/06/16 16:00 96.4 67 19 133/64 95 Room Air 07/06/16 16:00 88 07/06/16 12:00 87 07/06/16 11:39 96.9 95 18 109/63 93 Room Air Labs: Labs Test 07/05/16 05:30 07/05/16 11:45 07/06/16 06:00 07/07/16 05:30 White Blood Count 8.6 K/UL (4.8-10.8) 9.8 K/UL (4.8-10.8) 11.8 K/UL (4.8-10.8) 11.9 K/UL (4.8-10.8) Red Blood Count 2.51 M/UL (4.20-5.40) 3.22 M/UL (4.20-5.40) 3.19 M/UL (4.20-5.40) 3.47 M/UL (4.20-5.40) Hemoglobin 7.6 G/DL (12.0-16.0) 9.5 G/DL (12.0-16.0) 9.8 G/DL (12.0-16.0) 10.4 G/DL (12.0-16.0) Hematocrit 23.2 % (37.0-47.0) 29.7 % (37.0-47.0) 29.3 % (37.0-47.0) 31.3 % (37.0-47.0) Mean Corpuscular Volume 93 FL (80-99) 92 FL (80-99) 92 FL (80-99) 90 FL (80- 99) Mean Corpuscular Hemoglobin 30.5 PG (27.0-31.0) 29.7 PG (27.0-31.0) 30.7 PG (27.0-31.0) 29.9 PG (27.0-31.0) Mean Corpuscular Hemoglobin Concent 32.9 G/DL (32.0-36.0) 32.2 G/DL (32.0-36.0) 33.5 G/DL (32.0-36.0) 33.1 G/DL (32.0-36.0) Red Cell Distribution Width 13.8 % (11.6-14.8) 13.9 % (11.6-14.8) 13.8 % (11.6-14.8) 13.1 % (11.6-14.8) Platelet Count 137 K/UL (150-450) 170 K/UL (150-450) 180 K/UL (150-450) 206 K/UL (150-450) Mean Platelet Volume 9.7 FL (6.5-10.1) 9.3 FL (6.5-10.1) 8.6 FL (6.5-10.1) 8.3 FL (6.5-10.1) Neutrophils (%) (Auto) % (45.0-75.0) 45.6 % (45.0-75.0) 61.3 % (45.0-75.0) 73.9 % (45.0-75.0) Lymphocytes (%) (Auto) % (20.0-45.0) 29.8 % (20.0-45.0) 23.9 % (20.0-45.0) 15.9 % (20.0-45.0) Monocytes (%) (Auto) % (1.0-10.0) 9.8 % (1.0-10.0) 7.0 % (1.0-10.0) 5.1 % (1.0-10.0) Eosinophils (%) (Auto) % (0.0-3.0) 13.6 % (0.0-3.0) 7.0 % (0.0-3.0) 4.5 % (0.0-3.0) Basophils (%) (Auto) % (0.0-2.0) 1.2 % (0.0-2.0) 0.7 % (0.0-2.0) 0.5 % (0.0-2.0) Differential Total Cells Counted 100 Neutrophils % (Manual) 57 % (45-75) Lymphocytes % (Manual) 28 % (20-45) Monocytes % (Manual) 7 % (1-10) Eosinophils % (Manual) 8 % (0-3) Basophils % (Manual) 0 % (0-2) Band Neutrophils 0 % (0-8) Platelet Estimate Decreased Platelet Morphology Normal Hypochromasia 1+ Sodium Level 131 mEQ/L (135-145) 131 mEQ/L (135-145) 126 mEQ/L (135-145) Potassium Level 4.1 mEQ/L (3.4-4.9) 4.3 mEQ/L (3.4-4.9) 3.7 mEQ/L (3.4-4.9) Chloride Level 97 mEQ/L (98-107) 96 mEQ/L (98-107) 94 mEQ/L (98-107) Carbon Dioxide Level 18 mEQ/L (20-30) 18 mEQ/L (20-30) 18 mEQ/L (20-30) Anion Gap 16 (5-15) 17 (5-15) 14 (5-15) Blood Urea Nitrogen 3 mg/dL (7-23) 3 mg/dL (7-23) 3 mg/dL (7-23) Creatinine 1.2 mg/dL (0.5-0.9) 1.2 mg/dL (0.5-0.9) 1.1 mg/dL (0.5-0.9) Estimat Glomerular Filtration Rate mL/min (>60) mL/min (>60) mL/min (>60) Glucose Level 91 mg/dL (74-106) 87 mg/dL (74-106) 92 mg/dL (74-106) Calcium Level 7.9 mg/dL (8.6-10.2) 8.1 mg/dL (8.6-10.2) 8.0 mg/dL (8.6-10.2) Magnesium Level 1.3 mg/dL (1.7-2.5) Total Bilirubin < 0.2 mg/dL (0.0-1.2) 0.4 mg/dL (0.0-1.2) Aspartate Amino Transf (AST/SGOT) 13 U/L (5-40) 19 U/L (5-40) Alanine Aminotransferase (ALT/SGPT) 7 U/L (3-33) 7 U/L (3-33) Alkaline Phosphatase 69 U/L (35-104) 77 U/L (35-104) Pro-B-Type Natriuretic Peptide 2503 pg/mL (0-450) Total Protein 5.1 g/dL (6.6-8.7) 6.0 g/dL (6.6-8.7) Albumin 2.3 g/dL (3.5-5.2) 2.4 g/dL (3.5-5.2) Globulin 2.8 g/dL 3.6 g/dL Albumin/Globulin Ratio 0.8 (1.0-2.7) 0.6 (1.0-2.7) Objective: GENERAL: A well-developed female, NAD HEENT: Fairly negative. NAD NECK: Supple. No jugular venous distention. LUNGS: stable breath sounds without rhonchi; Moderate air entry. without wheeze CARDIAC: S1 and S2. RRR without murmurs, rubs, or gallops. ABDOMEN: Soft, nontender, and nondistended. no HSM EXTREMITIES: No cyanosis or clubbing. No edema. NEUROLOGICAL: Grossly nonfocal. contracted and withdrawn reviewed and edited MARCELO BIRMINGHAM Jul 07, 2016 08:40
[2016-07-07] MEDS: Vitamin D 1000 IU Tab ORAL SCH (09:00)
[2016-07-07] MEDS ORDERED: Aspirin Baby 81mg NG ONE (09:00)
[2016-07-07] MEDS: Multivitamin 5ml Liquid GT SCH (09:00)
[2016-07-07] MEDS: Pantoprazole Inj IVP SCH (09:47)
--- NOTE | 2016-07-07 10:34 | Infectious Diseases Prog Note ---
Assessment/Plan Assessment/Plan antibiotics : none A 1. klebsiella UTI s/p rx 2. shock resolved 3. respiratory failure resolved 4. renal failure improving 5. leucocytosis improving P 1. continue off antibiotics 2. okay for GT placement from ID perspective 3. d/w Dr Christy Subjective ROS Limited/Unobtainable: Yes Allergies: Coded Allergies: No Known Allergies (Unverified , 04/18/12) Objective Vital Signs Last 24 Hour Vital Signs Date Time Temp Pulse Resp B/P Pulse Ox O2 Delivery O2 Flow Rate FiO2 07/07/16 10:01 81 07/07/16 08:30 99.0 100 25 120/63 95 Nasal Cannula 3.0 07/07/16 08:28 14 14 99 07/07/16 08:24 98 14 99 07/07/16 08:16 99.0 106 24 123/68 96 Simple Mask 6.0 07/07/16 08:00 101 26 117/74 97 Simple Mask 6.0 07/07/16 07:55 108 23 113/54 96 Simple Mask 6.0 07/07/16 07:50 99.2 99 20 110/47 99 Simple Mask 6.0 07/07/16 04:12 98.6 74 17 101/55 95 Room Air 07/07/16 03:40 80 07/07/16 00:25 98.8 88 18 106/65 97 Room Air 07/06/16 23:44 79 07/06/16 20:00 97.9 79 18 118/51 96 Room Air 07/06/16 20:00 91 07/06/16 16:00 96.4 67 19 133/64 95 Room Air 07/06/16 16:00 88 07/06/16 12:00 87 07/06/16 11:39 96.9 95 18 109/63 93 Room Air Height (Feet): 5 Height (Inches): 2.99 Weight (Pounds): 102 Respiratory/Chest: lungs clear Cardiovascular: normal rate, regular rhythm, no gallop/murmur Abdomen: soft, non tender Extremities: no edema, other - right IJ catheter Laboratory Tests Test 07/07/16 05:30 White Blood Count 11.9 K/UL (4.8-10.8) H Red Blood Count 3.47 M/UL (4.20-5.40) L Hemoglobin 10.4 G/DL (12.0-16.0) L Hematocrit 31.3 % (37.0-47.0) L Mean Corpuscular Volume 90 FL (80-99) Mean Corpuscular Hemoglobin 29.9 PG (27.0-31.0) Mean Corpuscular Hemoglobin Concent 33.1 G/DL (32.0-36.0) Red Cell Distribution Width 13.1 % (11.6-14.8) Platelet Count 206 K/UL (150-450) Mean Platelet Volume 8.3 FL (6.5-10.1) Neutrophils (%) (Auto) 73.9 % (45.0-75.0) Lymphocytes (%) (Auto) 15.9 % (20.0-45.0) L Monocytes (%) (Auto) 5.1 % (1.0-10.0) Eosinophils (%) (Auto) 4.5 % (0.0-3.0) H Basophils (%) (Auto) 0.5 % (0.0-2.0) Sodium Level 126 mEQ/L (135-145) L Potassium Level 3.7 mEQ/L (3.4-4.9) Chloride Level 94 mEQ/L (98-107) L Carbon Dioxide Level 18 mEQ/L (20-30) L Anion Gap 14 (5-15) Blood Urea Nitrogen 3 mg/dL (7-23) L Creatinine 1.1 mg/dL (0.5-0.9) H Estimat Glomerular Filtration Rate mL/min (>60) Glucose Level 92 mg/dL (74-106) Calcium Level 8.0 mg/dL (8.6-10.2) L DAMIAN GUZMAN Jul 07, 2016 10:34
--- NOTE | 2016-07-07 11:59 | Diagnostic Imaging Report ---
Indication: Status post nasogastric tube placement Technique: Supine view of the abdomen Comparison: 07/03/2016 Findings: Again demonstrated is a nasogastric tube, tip projecting at the level of the distal esophagus. There is a right jugular central venous catheter. Gas pattern is unremarkable. No unusual masses or calcifications. There are compression fracture deformities of the thoracolumbar junction. Impression: Malposition of nasogastric tube. Patient's nurse notified of this critical value at the time of interpretation Other findings as noted
--- NOTE | 2016-07-07 14:28 | Operative Note - Dictated ---
DATE OF OPERATION: 07/07/2016 GASTROENTEROLOGY PROCEDURE NOTE: PROCEDURE: Upper gastrointestinal endoscopy with endoscopic placement of the nasogastric tube placement. SURGEON: Morenita Christy M.D. ANESTHESIA: Please see the separate anesthesiologist notes for details. PRE-ENDOSCOPIC DIAGNOSIS: Dysphagia requiring gastrostomy tube placement. POST-ENDOSCOPIC DIAGNOSES: 1. Very large hiatal hernia with majority of in the chest cavity with some degree of axial rotation. 2. Unable to trace gastrostomy tube due to lack of appropriate landmarks typically used for endoscopic gastrostomy tube placement. 3. Nasogastric tube placed in the gastric cavity by endoscopic visualization. PROCEDURE: The procedure, its risks, indications, alternatives, and possible complications were explained to the patient's family and informed consent was obtained. The endoscope was introduced through the oropharynx and advanced to the stomach. The stomach has very large hiatal hernia. I believe measuring 13 cm with the majority of stomach in the chest cavity. There was some mild degree of rotation through the stomach taking endoscopic intervention somewhat more difficult. Appropriate landmarks could not be seen endoscopically for placement of the gastrostomy tube. The nasogastric tube was then placed into the esophagus taken down into the stomach using a suture loop placed to the tip of the nasogastric tube for and anchoring. Position was verified endoscopically. The endoscope was removed. The patient was sent to recovery in good condition. COMPLICATIONS: None. RECOMMENDATIONS: 1. Check KUB. 2. Begin tube feeding through the nasogastric tube using a concentrated formula with some elevation of . 3. Surgical evaluation for gastrostomy tube placement. Morenita Christy M.D. DR: ABDIAZIZ JOB#: [id number] CC:
--- NOTE | 2016-07-07 17:21 | Nephrology Progress Note ---
Assessment/Plan Problem List: (1) Pyelonephritis (2) Acute hypernatremia (3) Dehydration (4) Sepsis (5) MARCELLE (acute kidney injury) (6) Septic shock (7) Respiratory alkalosis (8) Hyponatremia Plan still needs iv rehydration, lab trend better, iv adjusted,NS as Na lower continuing rx klebsiella uti Subjective ROS Limited/Unobtainable: Yes Objective Objective Last 24 Hour Vital Signs Date Time Temp Pulse Resp B/P Pulse Ox O2 Delivery O2 Flow Rate FiO2 07/07/16 16:03 97.2 93 20 105/60 97 Nasal Cannula 2.0 07/07/16 16:00 96 07/07/16 11:22 98.1 88 20 107/60 96 Nasal Cannula 2.0 07/07/16 10:01 81 07/07/16 08:30 99.0 100 25 120/63 95 Nasal Cannula 3.0 07/07/16 08:28 14 14 99 07/07/16 08:24 98 14 99 07/07/16 08:16 99.0 106 24 123/68 96 Simple Mask 6.0 07/07/16 08:00 101 26 117/74 97 Simple Mask 6.0 07/07/16 07:55 108 23 113/54 96 Simple Mask 6.0 07/07/16 07:50 99.2 99 20 110/47 99 Simple Mask 6.0 07/07/16 04:12 98.6 74 17 101/55 95 Room Air 07/07/16 03:40 80 07/07/16 00:25 98.8 88 18 106/65 97 Room Air 07/06/16 23:44 79 07/06/16 20:00 97.9 79 18 118/51 96 Room Air 07/06/16 20:00 91 Intake and Output 07/06/16 07/07/16 19:00 07:00 Intake Total 150 ml 860 ml Output Total 300 ml 1200 ml Balance -150 ml -340 ml IV Total 150 ml 860 ml Output Urine Total 300 ml 1200 ml # Bowel Movements 1 1 Laboratory Tests 07/07/16 05:30: White Blood Count 11.9H, Red Blood Count 3.47L, Hemoglobin 10.4L, Hematocrit 31.3L, Mean Corpuscular Volume 90, Mean Corpuscular Hemoglobin 29.9, Mean Corpuscular Hemoglobin Concent 33.1, Red Cell Distribution Width 13.1, Platelet Count 206, Mean Platelet Volume 8.3, Neutrophils (%) (Auto) 73.9, Lymphocytes (% ) (Auto) 15.9L, Monocytes (%) (Auto) 5.1, Eosinophils (%) (Auto) 4.5H, Basophils (%) (Auto) 0.5, Sodium Level 126L, Potassium Level 3.7, Chloride Level 94L, Carbon Dioxide Level 18L, Anion Gap 14, Blood Urea Nitrogen 3L, Creatinine 1.1H, Estimat Glomerular Filtration Rate , Glucose Level 92, Calcium Level 8.0L Height (Feet): 5 Height (Inches): 2.99 Weight (Pounds): 102 General Appearance: no apparent distress, confused EENT: normal ENT inspection Neck: normal alignment Cardiovascular: normal rate, regular rhythm Respiratory/Chest: lungs clear Abdomen: non tender, soft Extremities: other - contracted JILL GASPAR Jul 07, 2016 17:21
--- NOTE | 2016-07-07 18:21 | General Progress Note ---
Assessment/Plan Problem List: (1) Hypothyroid ICD Codes: E03.9 - Hypothyroid SNOMED: 50792523 (2) Septic shock ICD Codes: A41.9 - Sepsis, unspecified organism; R65.21 - Severe sepsis with septic shock SNOMED: 42288994 (3) Acute renal failure ICD Codes: N17.9 - Acute kidney failure, unspecified SNOMED: 65290390 Qualifiers: Qualified Codes: N17.0 - Acute kidney failure with tubular necrosis (4) Sepsis ICD Codes: A41.9 - Sepsis, unspecified organism SNOMED: 01210274 (5) Altered mental status ICD Codes: R41.82 - Altered mental status, unspecified SNOMED: 502828347 Qualifiers: Qualified Codes: R41.0 - Disorientation, unspecified (6) Acute delirium ICD Codes: R41.0 - Acute delirium SNOMED: 0279055 (7) UTI (lower urinary tract infection) ICD Codes: N39.0 - UTI (lower urinary tract infection) SNOMED: 8519731 Status: stable, not improved Assessment/Plan monitor bp ivf possible surgical gt wean o2 monitor abg abx per ID tele monitoring. monitor labs repeat swallow eval Subjective ROS Limited/Unobtainable: Yes Constitutional: Reports: malaise, weakness HEENT: Reports: no symptoms Cardiovascular: Reports: no symptoms Respiratory: Reports: no symptoms Gastrointestinal/Abdominal: Reports: difficulty swallowing Genitourinary: Reports: no symptoms Neurologic/Psychiatric: Reports: pre-existing deficit Endocrine: Reports: no symptoms Hematologic/Lymphatic: Reports: anemia Allergies: Coded Allergies: No Known Allergies (Unverified , 04/18/12) All Systems: reviewed and negative except above Subjective same. drowsy and lethargic at times.d/w gi. unable to place gt. temporary ngt placed. Objective Last 24 Hour Vital Signs Date Time Temp Pulse Resp B/P Pulse Ox O2 Delivery O2 Flow Rate FiO2 07/07/16 16:03 97.2 93 20 105/60 97 Nasal Cannula 2.0 07/07/16 16:00 96 07/07/16 11:22 98.1 88 20 107/60 96 Nasal Cannula 2.0 07/07/16 10:01 81 07/07/16 08:30 99.0 100 25 120/63 95 Nasal Cannula 3.0 07/07/16 08:28 14 14 99 07/07/16 08:24 98 14 99 07/07/16 08:16 99.0 106 24 123/68 96 Simple Mask 6.0 07/07/16 08:00 101 26 117/74 97 Simple Mask 6.0 07/07/16 07:55 108 23 113/54 96 Simple Mask 6.0 07/07/16 07:50 99.2 99 20 110/47 99 Simple Mask 6.0 07/07/16 04:12 98.6 74 17 101/55 95 Room Air 07/07/16 03:40 80 07/07/16 00:25 98.8 88 18 106/65 97 Room Air 07/06/16 23:44 79 07/06/16 20:00 97.9 79 18 118/51 96 Room Air 07/06/16 20:00 91 Intake and Output 07/06/16 07/07/16 19:00 07:00 Intake Total 150 ml 860 ml Output Total 300 ml 1200 ml Balance -150 ml -340 ml IV Total 150 ml 860 ml Output Urine Total 300 ml 1200 ml # Bowel Movements 1 1 Laboratory Tests 07/07/16 05:30: White Blood Count 11.9H, Red Blood Count 3.47L, Hemoglobin 10.4L, Hematocrit 31.3L, Mean Corpuscular Volume 90, Mean Corpuscular Hemoglobin 29.9, Mean Corpuscular Hemoglobin Concent 33.1, Red Cell Distribution Width 13.1, Platelet Count 206, Mean Platelet Volume 8.3, Neutrophils (%) (Auto) 73.9, Lymphocytes (% ) (Auto) 15.9L, Monocytes (%) (Auto) 5.1, Eosinophils (%) (Auto) 4.5H, Basophils (%) (Auto) 0.5, Sodium Level 126L, Potassium Level 3.7, Chloride Level 94L, Carbon Dioxide Level 18L, Anion Gap 14, Blood Urea Nitrogen 3L, Creatinine 1.1H, Estimat Glomerular Filtration Rate , Glucose Level 92, Calcium Level 8.0L Height (Feet): 5 Height (Inches): 2.99 Weight (Pounds): 102 Objective General Appearance: WD/WN, lethargic, confused Neck: supple Cardiovascular: normal rate, regular rhythm Respiratory/Chest: lungs clear, normal breath sounds, no respiratory distress, no accessory muscle use Abdomen: normal bowel sounds, non tender, soft, no organomegaly Edema: no edema noted Arm (L), no edema noted Arm (R), no edema noted Leg (L), no edema noted Leg (R), no edema noted Pedal (L), no edema noted Pedal (R), no edema noted Generalized Neurologic: disoriented Skin: normal pigmentation, warm/dry HA FRANCIS Jul 07, 2016 18:21
[2016-07-07] MEDS: Atorvastatin 20mg tab ORAL SCH (21:02)
[2016-07-08 00:20] VITALS: BP 106/57
[2016-07-08 04:15] VITALS: BP 99/51
--- NOTE | 2016-07-08 04:37 | Progress Note ---
DATE: 07/07/2016 CARDIOLOGY PROGRESS NOTE SUBJECTIVE: The patient remains NPO. Repeat swallow evaluation is pending as the patient's G-tube could not be placed endoscopically due to hiatal hernia. The patient is at times withdrawn and lethargic, but more and more alert overall. OBJECTIVE: VITAL SIGNS: Blood pressure 105/60, pulse 93, respirations 20, and temperature afebrile. Monitored rhythm sinus and sinus tachycardia. Temperature maximum was 99 degrees. HEENT: Temporal wasting. Dry mucous membranes. Pale conjunctiva. No thrush. NECK: Supple. No accessory muscle use. LUNGS: With good breath sounds. No wheezing. CARDIAC: Regular rhythm and rate. Normal S1 and S2 with a fourth heart sound. ABDOMEN: Soft with no guarding or rebound. EXTREMITIES: No edema. LABORATORY AND DIAGNOSTIC DATA: White count 11.9 and hemoglobin 10.4. Sodium 126, potassium 3.7, bicarbonate 18, BUN 3, and creatinine 1.1. IMPRESSION: 1. Recovering sepsis with shock due to urinary tract infection. 2. Resolved renal failure. 3. Recovering metabolic and lactic acidosis. 4. Hyponatremia dilutional due to hydration. 5. Ischemic cardiomyopathy. 6. 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 7. Severe protein-calorie malnutrition. 8. Dysphagia. 9. Hypothyroidism on replacement therapy. PLAN: 1. Cautious hydration. 2. Diuresis x1. 3. Reattempt swallow evaluation. 4. Antibiotics. 5. Repeat swallow evaluation. 6. May need surgical gastrostomy tube. Yohan Corbett M.D. DR: Ole JOB#: [id number] CC:
[2016-07-08] MEDS: Levothyroxine 125mcg tab ORAL SCH (06:34)
--- NOTE | 2016-07-08 07:42 | Critical Care Progress Note ---
Assessment/Plan Assessment/Plan IMPRESSION: Respiratory failure, mostly due to metabolic acidosis (improved), presumed sepsis, shock, hypothermia, hypotension, history of dementia, history congestive heart failure, history of coronary artery disease, history of hypertension, possible acute on chronic renal failure, significant lactic acidemia, protein-calorie malnutrition, and profound leukocytosis. PLAN pulmonary exam stable no substantial change in exam d/w nursing and primary MD low flow oxygen chest XR PRN all noted and reviewed dc planning hopefully soon optimize and advance care medications/laboratory data/nursing notes reviewed in detail note reviewed and edited care discussed with RN and RT Critical Care - Subjective Interval Events: reviewed care NAD no congestion Condition: stable EKG Rhythm: Sinus Rhythm I&O: Intake and Output 07/07/16 07/08/16 19:00 07:00 Intake Total 1050 ml Output Total 300 ml 1250 ml Balance 750 ml -1250 ml IV Total 1050 ml Output Urine Total 300 ml 1250 ml Estimated Blood Loss 0 ml # Bowel Movements 1 1 Critical Care - Objective ET-Tube: 8.0 ET Position: 24 Last 24 Hour Vital Signs Date Time Temp Pulse Resp B/P Pulse Ox O2 Delivery O2 Flow Rate FiO2 07/08/16 04:15 98.6 92 18 99/51 96 Nasal Cannula 2.0 07/08/16 04:00 94 07/08/16 00:20 98.4 93 19 106/57 97 Nasal Cannula 2.0 07/08/16 00:00 90 07/07/16 20:00 84 18 108/50 97 Room Air 07/07/16 20:00 89 07/07/16 16:03 97.2 93 20 105/60 97 Nasal Cannula 2.0 07/07/16 16:00 96 07/07/16 11:22 98.1 88 20 107/60 96 Nasal Cannula 2.0 07/07/16 10:01 81 07/07/16 08:30 99.0 100 25 120/63 95 Nasal Cannula 3.0 07/07/16 08:28 14 14 99 07/07/16 08:24 98 14 99 07/07/16 08:16 99.0 106 24 123/68 96 Simple Mask 6.0 07/07/16 08:00 101 26 117/74 97 Simple Mask 6.0 07/07/16 07:55 108 23 113/54 96 Simple Mask 6.0 07/07/16 07:50 99.2 99 20 110/47 99 Simple Mask 6.0 Labs: Laboratory Tests Test 07/08/16 06:00 Urine Osmolality Pending Sodium Level Pending Potassium Level Pending Chloride Level Pending Carbon Dioxide Level Pending Blood Urea Nitrogen Pending Creatinine Pending Estimat Glomerular Filtration Rate Pending Glucose Level Pending Calcium Level Pending Objective: GENERAL: A well-developed female, NAD HEENT: Fairly negative. NAD NECK: Supple. No jugular venous distention. LUNGS: stable breath sounds without rhonchi; Moderate air entry. without wheeze CARDIAC: S1 and S2. RRR without murmurs, rubs, or gallops. ABDOMEN: Soft, nontender, and nondistended. no HSM EXTREMITIES: No cyanosis or clubbing. No edema. NEUROLOGICAL: Grossly nonfocal. contracted and withdrawn reviewed and edited MARCELO BIRMINGHAM Jul 08, 2016 07:42
[2016-07-08 07:48] LABS: ANION GAP 17 (5-15); CARBON DIOXIDE 17 mEQ/L (20-30); CHLORIDE 99 mEQ/L (98-107); CREATININE 1.1 mg/dL (0.5-0.9); HEMOLYSIS 3; POTASSIUM 3.9 mEQ/L (3.4-4.9); SODIUM 133 mEQ/L (135-145)
[2016-07-08 08:00] VITALS: BP 116/61
--- NOTE | 2016-07-08 08:15 | General Progress Note ---
Assessment/Plan Problem List: (1) Hypothyroid ICD Codes: E03.9 - Hypothyroid SNOMED: 76548408 (2) Septic shock ICD Codes: A41.9 - Sepsis, unspecified organism; R65.21 - Severe sepsis with septic shock SNOMED: 79847616 (3) Acute renal failure ICD Codes: N17.9 - Acute kidney failure, unspecified SNOMED: 58763163 Qualifiers: Qualified Codes: N17.0 - Acute kidney failure with tubular necrosis (4) Sepsis ICD Codes: A41.9 - Sepsis, unspecified organism SNOMED: 58148654 (5) Altered mental status ICD Codes: R41.82 - Altered mental status, unspecified SNOMED: 496687006 Qualifiers: Qualified Codes: R41.0 - Disorientation, unspecified (6) Acute delirium ICD Codes: R41.0 - Acute delirium SNOMED: 6524126 (7) UTI (lower urinary tract infection) ICD Codes: N39.0 - UTI (lower urinary tract infection) SNOMED: 4020544 Status: stable, progressing Assessment/Plan monitor bp ivf possible surgical gt wean o2 monitor abg abx per ID tele monitoring. monitor labs repeat swallow eval- order placed. Subjective ROS Limited/Unobtainable: No Constitutional: Reports: malaise, weakness HEENT: Reports: no symptoms Cardiovascular: Reports: no symptoms Respiratory: Reports: no symptoms Gastrointestinal/Abdominal: Reports: difficulty swallowing Genitourinary: Reports: no symptoms Neurologic/Psychiatric: Reports: no symptoms, pre-existing deficit Endocrine: Reports: no symptoms Hematologic/Lymphatic: Reports: no symptoms Allergies: Coded Allergies: No Known Allergies (Unverified , 04/18/12) All Systems: reviewed and negative except above Subjective seems more alert. unable to place gt yesterday as pt has hiatal hernia. Objective Last 24 Hour Vital Signs Date Time Temp Pulse Resp B/P Pulse Ox O2 Delivery O2 Flow Rate FiO2 07/08/16 04:15 98.6 92 18 99/51 96 Nasal Cannula 2.0 07/08/16 04:00 94 07/08/16 00:20 98.4 93 19 106/57 97 Nasal Cannula 2.0 07/08/16 00:00 90 07/07/16 20:00 84 18 108/50 97 Room Air 07/07/16 20:00 89 07/07/16 16:03 97.2 93 20 105/60 97 Nasal Cannula 2.0 07/07/16 16:00 96 07/07/16 11:22 98.1 88 20 107/60 96 Nasal Cannula 2.0 07/07/16 10:01 81 07/07/16 08:30 99.0 100 25 120/63 95 Nasal Cannula 3.0 07/07/16 08:28 14 14 99 07/07/16 08:24 98 14 99 07/07/16 08:16 99.0 106 24 123/68 96 Simple Mask 6.0 Intake and Output 07/07/16 07/08/16 19:00 07:00 Intake Total 1050 ml Output Total 300 ml 1250 ml Balance 750 ml -1250 ml IV Total 1050 ml Output Urine Total 300 ml 1250 ml Estimated Blood Loss 0 ml # Bowel Movements 1 1 Laboratory Tests 07/08/16 06:00: Urine Osmolality [Pending], Sodium Level 133L, Potassium Level 3.9, Chloride Level 99, Carbon Dioxide Level 17L, Anion Gap 17H, Blood Urea Nitrogen 6L, Creatinine 1.1H, Estimat Glomerular Filtration Rate , Glucose Level 65L, Calcium Level 8.0L Height (Feet): 5 Height (Inches): 2.99 Weight (Pounds): 102 Objective General Appearance: WD/WN, lethargic, confused Neck: supple Cardiovascular: normal rate, regular rhythm Respiratory/Chest: lungs clear, normal breath sounds, no respiratory distress, no accessory muscle use Abdomen: normal bowel sounds, non tender, soft, no organomegaly Edema: no edema noted Arm (L), no edema noted Arm (R), no edema noted Leg (L), no edema noted Leg (R), no edema noted Pedal (L), no edema noted Pedal (R), no edema noted Generalized Neurologic: disoriented Skin: normal pigmentation, warm/dry HA FRANCIS Jul 08, 2016 08:15
[2016-07-08] MEDS: Aspirin Baby 81mg ORAL SCH (08:33)
[2016-07-08] MEDS: Pantoprazole Inj IVP SCH (08:33)
[2016-07-08] MEDS: Multivitamin 5ml Liquid GT SCH (08:34)
[2016-07-08] MEDS: Vitamin D 1000 IU Tab ORAL SCH (08:40)
--- NOTE | 2016-07-08 11:02 | Diagnostic Imaging Report ---
Indication: Status post nasogastric tube repositioning Technique: One view of the abdomen Comparison: none Findings: Again demonstrated is a nasogastric tube, tip which projects above the left hemidiaphragm. Retrocardiac opacity suggests the presence of a small hiatal hernia, as the a recent chest radiographic 06/29/2016. It is likely that the nasogastric tube tip is within the intrathoracic portion of the stomach. However, the proximal port is likely within the distal esophagus. The bowel gas pattern is unremarkable. No significant interim change. Right jugular central venous catheter is again demonstrated Impression: Nasogastric tube tip is still above the diaphragm, presumably within intrathoracic stomach due to the presence of a small to moderate-sized hiatal hernia. Suspect the proximal port is still in the distal esophagus, however. Other findings as noted
[2016-07-08 12:00] VITALS: BP 112/51
--- NOTE | 2016-07-08 12:18 | Infectious Diseases Prog Note ---
Assessment/Plan Assessment/Plan A 1. klebsiella UTI s/p RX 3. shock resolved 4. respiratory failure resolved 5. renal failure improving 6. leucocytosis resolved P 1. observe off antibiotic Subjective ROS Limited/Unobtainable: Yes Allergies: Coded Allergies: No Known Allergies (Unverified , 04/18/12) Objective Vital Signs Last 24 Hour Vital Signs Date Time Temp Pulse Resp B/P Pulse Ox O2 Delivery O2 Flow Rate FiO2 07/08/16 12:00 97.9 86 16 112/51 99 Nasal Cannula 2.0 07/08/16 08:00 97.7 107 20 116/61 97 Nasal Cannula 2.0 07/08/16 08:00 93 07/08/16 04:15 98.6 92 18 99/51 96 Nasal Cannula 2.0 07/08/16 04:00 94 07/08/16 00:20 98.4 93 19 106/57 97 Nasal Cannula 2.0 07/08/16 00:00 90 07/07/16 20:00 84 18 108/50 97 Room Air 07/07/16 20:00 89 07/07/16 16:03 97.2 93 20 105/60 97 Nasal Cannula 2.0 07/07/16 16:00 96 Height (Feet): 5 Height (Inches): 2.99 Weight (Pounds): 102 General Appearance: no acute distress HEENT: other - NG tube Respiratory/Chest: lungs clear, other - O2 by cannula Cardiovascular: normal rate, other - RIJ central line Abdomen: soft, non tender Extremities: no edema Neurologic/Psychiatric: unresponsiveness Laboratory Tests Test 07/08/16 06:00 Urine Osmolality Pending Sodium Level 133 mEQ/L (135-145) L Potassium Level 3.9 mEQ/L (3.4-4.9) Chloride Level 99 mEQ/L (98-107) Carbon Dioxide Level 17 mEQ/L (20-30) L Anion Gap 17 (5-15) H Blood Urea Nitrogen 6 mg/dL (7-23) L Creatinine 1.1 mg/dL (0.5-0.9) H Estimat Glomerular Filtration Rate mL/min (>60) Glucose Level 65 mg/dL (74-106) L Calcium Level 8.0 mg/dL (8.6-10.2) L Current Medications Medications (Trade) Dose Ordered Sig/Trip Route PRN Reason Start Time Stop Time Status Last Admin Dose Admin Acetaminophen (Tylenol) 650 mg Q4H PRN NG Prn Headache/Temp > 101 07/02/16 16:45 08/01/16 16:44 Acetaminophen/ Hydrocodone Bitart (Lucas 5/325) 1 tab Q4H PRN ORAL For MODERATE Pain 07/02/16 17:00 07/09/16 16:59 Aspirin 81 mg 81 mg DAILY ORAL 07/08/16 09:00 08/07/16 08:59 07/08/16 08:33 Atorvastatin Calcium (Lipitor) 20 mg BEDTIME ORAL 07/02/16 21:00 08/01/16 20:59 07/07/16 21:02 Levothyroxine Sodium (Synthroid) 125 mcg ACBREAKFAST ORAL 07/03/16 06:30 08/02/16 06:29 07/08/16 06:34 Multivitamins (Multivitamin Hexavitamin) 5 ml DAILY GT 07/03/16 09:00 08/02/16 08:59 07/08/16 08:34 Pantoprazole (Protonix) 40 mg DAILY IVP 07/03/16 09:00 08/02/16 08:59 07/08/16 08:33 Sodium Chloride (Sodium Chloride 1000ml bag) 1,000 ml @ 75 mls/hr [id number] IV 07/07/16 18:00 08/06/16 17:59 07/08/16 06:46 Vitamin D (Vitamin D) 1 intlu DAILY ORAL 07/03/16 09:00 08/02/16 08:59 07/08/16 08:40 JAMEEL TRIPATHI Jul 08, 2016 12:18
[2016-07-08 15:00] VITALS: BP 112/68
--- NOTE | 2016-07-08 16:41 | Nephrology Progress Note ---
Assessment/Plan Problem List: (1) Pyelonephritis (2) Acute hypernatremia (3) Dehydration (4) Sepsis (5) MARCELLE (acute kidney injury) (6) Septic shock (7) Respiratory alkalosis (8) Hyponatremia Plan still needs iv rehydration, lab trend better, iv adjusted,NS as Na lower now improving continuing rx klebsiella uti Subjective ROS Limited/Unobtainable: Yes Objective Objective Last 24 Hour Vital Signs Date Time Temp Pulse Resp B/P Pulse Ox O2 Delivery O2 Flow Rate FiO2 07/08/16 15:00 97.5 90 18 112/68 98 Nasal Cannula 2.0 07/08/16 12:00 97.9 86 16 112/51 99 Nasal Cannula 2.0 07/08/16 12:00 85 07/08/16 08:00 97.7 107 20 116/61 97 Nasal Cannula 2.0 07/08/16 08:00 93 07/08/16 04:15 98.6 92 18 99/51 96 Nasal Cannula 2.0 07/08/16 04:00 94 07/08/16 00:20 98.4 93 19 106/57 97 Nasal Cannula 2.0 07/08/16 00:00 90 07/07/16 20:00 84 18 108/50 97 Room Air 07/07/16 20:00 89 Intake and Output 07/07/16 07/08/16 19:00 07:00 Intake Total 1050 ml Output Total 300 ml 1250 ml Balance 750 ml -1250 ml IV Total 1050 ml Output Urine Total 300 ml 1250 ml Estimated Blood Loss 0 ml # Bowel Movements 1 1 Laboratory Tests 07/08/16 06:00: Urine Osmolality [Pending], Sodium Level 133L, Potassium Level 3.9, Chloride Level 99, Carbon Dioxide Level 17L, Anion Gap 17H, Blood Urea Nitrogen 6L, Creatinine 1.1H, Estimat Glomerular Filtration Rate , Glucose Level 65L, Calcium Level 8.0L Height (Feet): 5 Height (Inches): 2.99 Weight (Pounds): 102 General Appearance: lethargic EENT: normal ENT inspection Neck: normal alignment, supple Cardiovascular: normal rate Respiratory/Chest: lungs clear Abdomen: soft Extremities: other Neurologic: motor weakness JILL GASPAR Jul 08, 2016 16:41
[2016-07-08 20:00] VITALS: BP 127/54
[2016-07-08] MEDS: Atorvastatin 20mg tab ORAL SCH (20:20)
--- NOTE | 2016-07-08 23:28 | General Progress Note ---
Assessment/Plan Assessment/Plan Assessment - hyponatremia - s/p failed NGT - OBS - Respiratory failure - UTI - Mild Leukocytosis - malnutrition - EGD shows large HH - NGT placed under direct vision in gastric cavity-but tip still in lower chest - Much of stomach appears to be in the chest - unable to identify clear landmarks for endoscopic PEG placement - NGT placed under direct vision in gastric cavity - Need surgical opinion re GT placement Recommendation - Continue IVF - monitor Na level - Free water restriction - NPO - Await surgical opinion re GT placement Subjective Allergies: Coded Allergies: No Known Allergies (Unverified , 04/18/12) Subjective NAD sitter at bedside no events overnight Objective Last 24 Hour Vital Signs Date Time Temp Pulse Resp B/P Pulse Ox O2 Delivery O2 Flow Rate FiO2 07/08/16 20:00 98.1 84 19 127/54 98 Room Air 07/08/16 15:00 97.5 90 18 112/68 98 Nasal Cannula 2.0 07/08/16 12:00 97.9 86 16 112/51 99 Nasal Cannula 2.0 07/08/16 12:00 85 07/08/16 08:00 97.7 107 20 116/61 97 Nasal Cannula 2.0 07/08/16 08:00 93 07/08/16 04:15 98.6 92 18 99/51 96 Nasal Cannula 2.0 07/08/16 04:00 94 07/08/16 00:20 98.4 93 19 106/57 97 Nasal Cannula 2.0 07/08/16 00:00 90 Intake and Output 07/07/16 07/08/16 19:00 07:00 Intake Total 1050 ml Output Total 300 ml 1250 ml Balance 750 ml -1250 ml IV Total 1050 ml Output Urine Total 300 ml 1250 ml Estimated Blood Loss 0 ml # Bowel Movements 1 1 Laboratory Tests 07/08/16 06:00: Urine Osmolality [Pending], Sodium Level 133L, Potassium Level 3.9, Chloride Level 99, Carbon Dioxide Level 17L, Anion Gap 17H, Blood Urea Nitrogen 6L, Creatinine 1.1H, Estimat Glomerular Filtration Rate , Glucose Level 65L, Calcium Level 8.0L Height (Feet): 5 Height (Inches): 2.99 Weight (Pounds): 102 Objective Thin WW NCAT, (+) NGT supple CTA RRR Soft Flat ND (+) contractures (+) OBS KALEE SERRATO Jul 08, 2016 23:28
[2016-07-09 00:16] VITALS: BP 112/64
--- NOTE | 2016-07-09 00:17 | Consultation ---
DATE OF CONSULTATION: 07/08/2016 SURGICAL CONSULTATION HISTORY OF PRESENT ILLNESS: The patient is an 85-year-old female, who is demented and noncommunicative. She had a recent episode of renal dysfunction, which is improving. She has dysphasia, which does not permit her to continue taking oral intake without aspiration. She is currently being nourished by a nasogastric tube, but that requires that she be restrained all the time because she dislodges the tube. She had attempted a PEG procedure, but the stomach appeared to be predominantly in the chest without a safe landmark to do that procedure. I have been consulted to do the procedure by an open surgery. PHYSICAL EXAMINATION: On examination, the patient is nonresponsive, moving about aimlessly, restrained with an NG tube. Her abdomen is nondistended and nontender. She has no previous upper abdominal surgery. I have talked to the patient sitter and she tells me that the patient is constantly making attempts to pull her nasogastric tube out. I think the best approach would be to do a Janeway gastrostomy with a permanent stoma and in that fashion she did pull the tube out it could be readily replaced without risk of the stoma closing in the few hours and requiring an additional procedure. I will try to arrange this for Wednesday and we will contact the primary care doctor and confirmed that it is going to be scheduled for that day. IMPRESSION: Demented minimally functional female with dysphagia, recurrent aspiration and inability to tolerate oral feeding. The patient has a highly positioned stomach precluding type procedure. I think she would be best served as noted by a permanent Janeway gastrostomy. Nick Pope M.D. DR: SANTOSH JOB#: [id number] CC: SAMIA
[2016-07-09 04:11] VITALS: BP 113/60
[2016-07-09] MEDS: Levothyroxine 125mcg tab ORAL SCH (06:28)
[2016-07-09 08:04] VITALS: BP 109/55
--- NOTE | 2016-07-09 08:36 | General Progress Note ---
Assessment/Plan Problem List: (1) Hypothyroid ICD Codes: E03.9 - Hypothyroid SNOMED: 51515907 (2) Septic shock ICD Codes: A41.9 - Sepsis, unspecified organism; R65.21 - Severe sepsis with septic shock SNOMED: 48549810 (3) Acute renal failure ICD Codes: N17.9 - Acute kidney failure, unspecified SNOMED: 06805651 Qualifiers: Qualified Codes: N17.0 - Acute kidney failure with tubular necrosis (4) Sepsis ICD Codes: A41.9 - Sepsis, unspecified organism SNOMED: 84164368 (5) Altered mental status ICD Codes: R41.82 - Altered mental status, unspecified SNOMED: 469130464 Qualifiers: Qualified Codes: R41.0 - Disorientation, unspecified (6) Acute delirium ICD Codes: R41.0 - Acute delirium SNOMED: 0881554 (7) UTI (lower urinary tract infection) ICD Codes: N39.0 - UTI (lower urinary tract infection) SNOMED: 9454218 Assessment/Plan ivf ngt for meds abx per ID monitor lytes surgery input appreciated. possible surgical gt tomorrow by Subjective ROS Limited/Unobtainable: Yes Constitutional: Reports: malaise, weakness HEENT: Reports: no symptoms Cardiovascular: Reports: no symptoms Respiratory: Reports: no symptoms Gastrointestinal/Abdominal: Reports: difficulty swallowing Genitourinary: Reports: no symptoms Neurologic/Psychiatric: Reports: pre-existing deficit Endocrine: Reports: no symptoms Hematologic/Lymphatic: Reports: no symptoms Allergies: Coded Allergies: No Known Allergies (Unverified , 04/18/12) All Systems: reviewed and negative except above Subjective failed swallow eval again. too lethargic and confused to cooperate. d/w rn. too sleepy. high risk for aspiration Objective Last 24 Hour Vital Signs Date Time Temp Pulse Resp B/P Pulse Ox O2 Delivery O2 Flow Rate FiO2 07/09/16 08:04 97.0 73 20 109/55 98 Nasal Cannula 2.0 07/09/16 04:11 97.5 88 18 113/60 98 Nasal Cannula 2.0 07/09/16 04:00 89 07/09/16 00:16 97.0 90 18 112/64 97 Room Air 07/09/16 00:00 80 07/08/16 20:00 83 07/08/16 20:00 98.1 84 19 127/54 98 Room Air 07/08/16 16:00 83 07/08/16 15:00 97.5 90 18 112/68 98 Nasal Cannula 2.0 07/08/16 12:00 97.9 86 16 112/51 99 Nasal Cannula 2.0 07/08/16 12:00 85 Intake and Output 07/08/16 07/09/16 18:59 06:59 Intake Total 600 ml 400 ml Output Total 900 ml 500 ml Balance -300 ml -100 ml IV Total 600 ml 400 ml Output Urine Total 900 ml 500 ml Height (Feet): 5 Height (Inches): 2.99 Weight (Pounds): 102 Objective General Appearance: WD/WN, lethargic, confused Neck: supple Cardiovascular: normal rate, regular rhythm Respiratory/Chest: lungs clear, normal breath sounds, no respiratory distress, no accessory muscle use Abdomen: normal bowel sounds, non tender, soft, no organomegaly Edema: no edema noted Arm (L), no edema noted Arm (R), no edema noted Leg (L), no edema noted Leg (R), no edema noted Pedal (L), no edema noted Pedal (R), no edema noted Generalized Neurologic: disoriented Skin: normal pigmentation, warm/dry HA FRANCIS Jul 09, 2016 08:36
[2016-07-09] MEDS: Vitamin D 1000 IU Tab ORAL SCH (08:45)
[2016-07-09] MEDS: Aspirin Baby 81mg ORAL SCH (08:45)
[2016-07-09] MEDS: Multivitamin 5ml Liquid GT SCH (08:45)
[2016-07-09] MEDS: Pantoprazole Inj IVP SCH (08:45)
--- NOTE | 2016-07-09 08:45 | Critical Care Progress Note ---
Assessment/Plan Assessment/Plan IMPRESSION: Respiratory failure, mostly due to metabolic acidosis (improved), presumed sepsis, shock, hypothermia, hypotension, history of dementia, history congestive heart failure, history of coronary artery disease, history of hypertension, possible acute on chronic renal failure, significant lactic acidemia, protein-calorie malnutrition, and profound leukocytosis. PLAN pulmonary exam stable; no substantial change care reviewed in detail low flow oxygen and stable chest XR PRN all noted and reviewed dc planning likely to SNF optimize and advance care medications/laboratory data/nursing notes reviewed in detail note reviewed and edited care discussed with RN and RT Critical Care - Subjective Interval Events: findings noted not acute at present ROS Limited/Unobtainable: Yes Condition: stable EKG Rhythm: Sinus Rhythm I&O: Intake and Output 07/08/16 07/09/16 19:00 07:00 Intake Total 600 ml 450 ml Output Total 900 ml 500 ml Balance -300 ml -50 ml IV Total 600 ml 450 ml Output Urine Total 900 ml 500 ml Critical Care - Objective ET-Tube: 8.0 ET Position: 24 Last 24 Hour Vital Signs Date Time Temp Pulse Resp B/P Pulse Ox O2 Delivery O2 Flow Rate FiO2 07/09/16 08:04 97.0 73 20 109/55 98 Nasal Cannula 2.0 07/09/16 04:11 97.5 88 18 113/60 98 Nasal Cannula 2.0 07/09/16 04:00 89 07/09/16 00:16 97.0 90 18 112/64 97 Room Air 07/09/16 00:00 80 07/08/16 20:00 83 07/08/16 20:00 98.1 84 19 127/54 98 Room Air 07/08/16 16:00 83 07/08/16 15:00 97.5 90 18 112/68 98 Nasal Cannula 2.0 07/08/16 12:00 97.9 86 16 112/51 99 Nasal Cannula 2.0 07/08/16 12:00 85 Labs: Labs Test 07/07/16 05:30 07/08/16 06:00 White Blood Count 11.9 K/UL (4.8-10.8) Red Blood Count 3.47 M/UL (4.20-5.40) Hemoglobin 10.4 G/DL (12.0-16.0) Hematocrit 31.3 % (37.0-47.0) Mean Corpuscular Volume 90 FL (80-99) Mean Corpuscular Hemoglobin 29.9 PG (27.0-31.0) Mean Corpuscular Hemoglobin Concent 33.1 G/DL (32.0-36.0) Red Cell Distribution Width 13.1 % (11.6-14.8) Platelet Count 206 K/UL (150-450) Mean Platelet Volume 8.3 FL (6.5-10.1) Neutrophils (%) (Auto) 73.9 % (45.0-75.0) Lymphocytes (%) (Auto) 15.9 % (20.0-45.0) Monocytes (%) (Auto) 5.1 % (1.0-10.0) Eosinophils (%) (Auto) 4.5 % (0.0-3.0) Basophils (%) (Auto) 0.5 % (0.0-2.0) Sodium Level 126 mEQ/L (135-145) 133 mEQ/L (135-145) Potassium Level 3.7 mEQ/L (3.4-4.9) 3.9 mEQ/L (3.4-4.9) Chloride Level 94 mEQ/L (98-107) 99 mEQ/L (98-107) Carbon Dioxide Level 18 mEQ/L (20-30) 17 mEQ/L (20-30) Anion Gap 14 (5-15) 17 (5-15) Blood Urea Nitrogen 3 mg/dL (7-23) 6 mg/dL (7-23) Creatinine 1.1 mg/dL (0.5-0.9) 1.1 mg/dL (0.5-0.9) Estimat Glomerular Filtration Rate mL/min (>60) mL/min (>60) Glucose Level 92 mg/dL (74-106) 65 mg/dL (74-106) Calcium Level 8.0 mg/dL (8.6-10.2) 8.0 mg/dL (8.6-10.2) Objective: GENERAL: A well-developed female, NAD HEENT: Fairly negative. NAD NECK: Supple. No jugular venous distention. LUNGS: stable breath sounds without rhonchi; Moderate air entry. without wheeze CARDIAC: S1 and S2. RRR without murmurs, rubs, or gallops. ABDOMEN: Soft, nontender, and nondistended. no HSM EXTREMITIES: No cyanosis or clubbing. No edema. NEUROLOGICAL: Grossly nonfocal. contracted and withdrawn reviewed and edited MARCELO BIRMINGHAM Jul 09, 2016 08:45
[2016-07-09 12:04] VITALS: BP 114/58
--- NOTE | 2016-07-09 13:47 | Infectious Diseases Prog Note ---
Assessment/Plan Assessment/Plan A 1. klebsiella UTI s/p RX 3. shock resolved 4. respiratory failure resolved 5. renal failure improving 6. leucocytosis resolved P 1. observe off antibiotic 2. waiting for GT placement Subjective ROS Limited/Unobtainable: Yes Allergies: Coded Allergies: No Known Allergies (Unverified , 04/18/12) Objective Vital Signs Last 24 Hour Vital Signs Date Time Temp Pulse Resp B/P Pulse Ox O2 Delivery O2 Flow Rate FiO2 07/09/16 12:04 98.1 82 20 114/58 97 Nasal Cannula 2.0 07/09/16 08:04 97.0 73 20 109/55 98 Nasal Cannula 2.0 07/09/16 08:00 81 07/09/16 04:11 97.5 88 18 113/60 98 Nasal Cannula 2.0 07/09/16 04:00 89 07/09/16 00:16 97.0 90 18 112/64 97 Room Air 07/09/16 00:00 80 07/08/16 20:00 83 07/08/16 20:00 98.1 84 19 127/54 98 Room Air 07/08/16 16:00 83 07/08/16 15:00 97.5 90 18 112/68 98 Nasal Cannula 2.0 Height (Feet): 5 Height (Inches): 2.99 Weight (Pounds): 102 General Appearance: no acute distress HEENT: mucous membranes moist Respiratory/Chest: lungs clear, other - O2 by cannula Cardiovascular: normal rate, other - RIJ line Abdomen: soft, non tender, other - NG tube Extremities: no edema Neurologic/Psychiatric: alert Current Medications Medications (Trade) Dose Ordered Sig/Trip Route PRN Reason Start Time Stop Time Status Last Admin Dose Admin Acetaminophen (Tylenol) 650 mg Q4H PRN NG Prn Headache/Temp > 101 07/02/16 16:45 08/01/16 16:44 Acetaminophen/ Hydrocodone Bitart ([place] 5/325) 1 tab Q4H PRN ORAL For MODERATE Pain 07/02/16 17:00 07/09/16 16:59 Aspirin 81 mg 81 mg DAILY ORAL 07/08/16 09:00 08/07/16 08:59 07/09/16 08:45 Atorvastatin Calcium (Lipitor) 20 mg BEDTIME ORAL 07/02/16 21:00 08/01/16 20:59 07/08/16 20:20 Levothyroxine Sodium (Synthroid) 125 mcg ACBREAKFAST ORAL 07/03/16 06:30 08/02/16 06:29 07/09/16 06:28 Multivitamins (Multivitamin Hexavitamin) 5 ml DAILY GT 07/03/16 09:00 08/02/16 08:59 07/09/16 08:45 Pantoprazole (Protonix) 40 mg DAILY IVP 07/03/16 09:00 08/02/16 08:59 07/09/16 08:45 Sodium Chloride (Sodium Chloride 1000ml bag) 1,000 ml @ 50 mls/hr Q20H IV 07/08/16 18:00 08/07/16 17:59 07/08/16 20:19 Vitamin D (Vitamin D) 1 intlu DAILY ORAL 07/03/16 09:00 08/02/16 08:59 07/09/16 08:45 JAMEEL TRIPATHI Jul 09, 2016 13:47
[2016-07-09] MEDS ORDERED: Lisinopril 10mg tab NG ONE (14:00)
[2016-07-09 16:09] VITALS: BP 106/66
[2016-07-09 20:00] VITALS: BP 101/58
[2016-07-09] MEDS: Atorvastatin 20mg tab ORAL SCH (20:31)
--- NOTE | 2016-07-09 21:17 | Progress Note ---
DATE: 07/09/2016 CARDIOLOGY PROGRESS NOTE SUBJECTIVE: The patient remains poorly responsive and non-cooperative with a significant risk of aspiration. Poor oral intake persists. Repeat swallow evaluation is confirmatory. OBJECTIVE: VITAL SIGNS: Afebrile, blood pressure 109/55, pulse 73, and respirations 20. HEENT: Temporal wasting. NG tube in place. LUNGS: Bilateral breath sounds. No rales. CARDIAC: Regular rhythm and rate. Normal S1 and S2. No new murmur. ABDOMEN: Soft. EXTREMITIES: No edema. SKIN: Skin changes are pictured. IMPRESSION: 1. Dysphagia. 2. Severe protein-calorie malnutrition. 3. Status post shock due to sepsis and hypovolemia. 4. Recovered renal failure. 5. Ischemic cardiomyopathy. 6. Acute on chronic diastolic congestive heart failure. PLAN: 1. Nutritional support. 2. Antimicrobials. 3. DVT prophylaxis and skin care. 4. Add angiotensin-converting enzyme inhibitor. 5. Diurese. 6. Discontinue intravenous fluids once nutrition by feeding tube is advanced. Yohan Corbett M.D. DR: POOL JOB#: [id number] CC:
--- NOTE | 2016-07-09 21:41 | Nephrology Progress Note ---
Assessment/Plan Problem List: (1) Pyelonephritis (2) Acute hypernatremia (3) Dehydration (4) Sepsis (5) MARCELLE (acute kidney injury) (6) Septic shock (7) Respiratory alkalosis (8) Hyponatremia Plan still needs iv rehydration, lab trend better, iv adjusted,NS as Na lower now improving continuing rx klebsiella uti Subjective ROS Limited/Unobtainable: Yes Objective Objective Last 24 Hour Vital Signs Date Time Temp Pulse Resp B/P Pulse Ox O2 Delivery O2 Flow Rate FiO2 07/09/16 20:00 97.2 102 18 101/58 98 07/09/16 19:25 98 07/09/16 16:09 97.9 85 18 106/66 98 Nasal Cannula 2.0 07/09/16 14:40 114/58 07/09/16 12:04 98.1 82 20 114/58 97 Nasal Cannula 2.0 07/09/16 12:00 92 07/09/16 08:04 97.0 73 20 109/55 98 Nasal Cannula 2.0 07/09/16 08:00 81 07/09/16 04:11 97.5 88 18 113/60 98 Nasal Cannula 2.0 07/09/16 04:00 89 07/09/16 00:16 97.0 90 18 112/64 97 Room Air 07/09/16 00:00 80 Intake and Output 07/08/16 07/09/16 19:00 07:00 Intake Total 600 ml 450 ml Output Total 1100 ml 500 ml Balance -500 ml -50 ml IV Total 600 ml 450 ml Output Urine Total 1100 ml 500 ml Height (Feet): 5 Height (Inches): 2.99 Weight (Pounds): 102 General Appearance: confused EENT: normal ENT inspection Neck: normal alignment Cardiovascular: normal rate Respiratory/Chest: lungs clear Abdomen: soft Neurologic: motor weakness, disoriented JILL GASPAR Jul 09, 2016 21:41
--- NOTE | 2016-07-09 21:54 | General Progress Note ---
Assessment/Plan Assessment/Plan Assessment - hyponatremia - s/p failed NGT - OBS - Respiratory failure - UTI - Mild Leukocytosis - malnutrition - EGD shows large HH - NGT placed under direct vision in gastric cavity-but tip still in lower chest - Much of stomach appears to be in the chest - unable to identify clear landmarks for endoscopic PEG placement - NGT placed under direct vision in gastric cavity - Need surgical opinion re GT placement Recommendation - Continue IVF - monitor Na level - Free water restriction - NPO - Await surgical opinion re GT placement Subjective Allergies: Coded Allergies: No Known Allergies (Unverified , 04/18/12) Subjective NAD sitter at bedside no events overnight Objective Last 24 Hour Vital Signs Date Time Temp Pulse Resp B/P Pulse Ox O2 Delivery O2 Flow Rate FiO2 07/09/16 20:00 97.2 102 18 101/58 98 07/09/16 19:25 98 07/09/16 16:09 97.9 85 18 106/66 98 Nasal Cannula 2.0 07/09/16 14:40 114/58 07/09/16 12:04 98.1 82 20 114/58 97 Nasal Cannula 2.0 07/09/16 12:00 92 07/09/16 08:04 97.0 73 20 109/55 98 Nasal Cannula 2.0 07/09/16 08:00 81 07/09/16 04:11 97.5 88 18 113/60 98 Nasal Cannula 2.0 07/09/16 04:00 89 07/09/16 00:16 97.0 90 18 112/64 97 Room Air 07/09/16 00:00 80 Intake and Output 07/08/16 07/09/16 19:00 07:00 Intake Total 600 ml 450 ml Output Total 1100 ml 500 ml Balance -500 ml -50 ml IV Total 600 ml 450 ml Output Urine Total 1100 ml 500 ml Height (Feet): 5 Height (Inches): 2.99 Weight (Pounds): 102 Objective Thin WW NCAT, (+) NGT supple CTA RRR Soft Flat ND (+) contractures (+) OBS KALEE SERRATO Jul 09, 2016 21:54
--- NOTE | 2016-07-09 21:57 | Progress Note ---
DATE: 07/08/2016 CARDIOLOGY PROGRESS NOTE: SUBJECTIVE: Case was discussed with the patient's family members. The patient has remained with significant swallow dysfunction and is pulling out her NG tube. The patient is being considered for surgical G-tube for long-term nutrition. The patient has no shortness of breath or vomiting. No diarrhea. OBJECTIVE: VITAL SIGNS: Blood pressure 127/54, pulse 84, respiratory rate 19, and afebrile. LUNGS: Bilateral breath sounds. No wheezing. HEART: Regular rhythm and rate. Normal S1, S2. ABDOMEN: Soft. EXTREMITIES: With no edema. LABORATORY DATA: Sodium 133, potassium 3.9, bicarb 17, BUN 6, and creatinine 1.1. IMPRESSION: 1. Recovered shock due to hypovolemia and sepsis. 2. Recovering urinary tract infection with sepsis, rehydrated . 3. Dysphagia. 4. Severe protein-calorie malnutrition. 5. Hypothyroidism. 6. Ischemic cardiomyopathy. 7. Acute on chronic diastolic congestive heart failure. 8. Hiatal hernia, precluding. 9. Percutaneous endoscopic gastrostomy. PLAN: Discontinue IV fluids. Diurese. Titrate anti-failure regimen. Surgical G-tube planned. Yohan Corbett M.D. DR: Ignacio JOB#: [id number] CC:
[2016-07-10] VITALS: BP 104/57
[2016-07-10 04:00] VITALS: BP 94/55
[2016-07-10] MEDS: Levothyroxine 125mcg tab ORAL SCH (06:28)
[2016-07-10 07:26] LABS: BASOPHILS % (AUTO) 0.5 % (0.0-2.0); EOSINOPHILS % (AUTO) 4.4 % (0.0-3.0); LYMPHOCYTES % (AUTO) 21.4 % (20.0-45.0); MEAN CORPUSCULAR HEMOGLOBIN 29.7 PG (27.0-31.0); MEAN CORPUSCULAR VOLUME 90 FL (80-99); MEAN PLATELET VOLUME 8.3 FL (6.5-10.1); MONOCYTES % (AUTO) 7.1 % (1.0-10.0); NEUTROPHILS % (AUTO) 66.6 % (45.0-75.0); PLATELET COUNT 289 K/UL (150-450); RED BLOOD COUNT 3.18 M/UL (4.20-5.40); WHITE BLOOD COUNT 11.9 K/UL (4.8-10.8)
[2016-07-10 07:52] LABS: ALANINE AMINOTRANSFERASE 10 U/L (3-33); ALBUMIN/GLOBULIN RATIO 0.6 (1.0-2.7); ANION GAP 24 (5-15); ASPARTATE AMINO TRANSFERASE 27 U/L (5-40); CALCIUM 8.2 mg/dL (8.6-10.2); CARBON DIOXIDE 17 mEQ/L (20-30); CHLORIDE 96 mEQ/L (98-107); CREATININE 1.1 mg/dL (0.5-0.9); HEMOLYSIS 4; POTASSIUM 3.1 mEQ/L (3.4-4.9); SODIUM 137 mEQ/L (135-145); TOTAL PROTEIN 6.2 g/dL (6.6-8.7)
[2016-07-10 08:00] VITALS: BP 93/56
--- NOTE | 2016-07-10 08:37 | Critical Care Progress Note ---
Assessment/Plan Assessment/Plan IMPRESSION: Respiratory failure, mostly due to metabolic acidosis (improved), presumed sepsis, shock, hypothermia, hypotension, history of dementia, history congestive heart failure, history of coronary artery disease, history of hypertension, possible acute on chronic renal failure, significant lactic acidemia, protein-calorie malnutrition, and profound leukocytosis. PLAN pulmonary same at present care reviewed in detail low flow oxygen and stable as is chest XR PRN all noted and reviewed dc planning likely to SNF optimize and advance care as able findings discussed in detail medications/laboratory data/nursing notes reviewed in detail note reviewed and edited care discussed with RN and RT Critical Care - Subjective Interval Events: no significant change findings noted ROS Limited/Unobtainable: Yes I&O: Intake and Output 07/09/16 07/10/16 19:00 07:00 Intake Total 200 ml 395 ml Output Total 1200 ml 900 ml Balance -1000 ml -505 ml IV Total 200 ml 395 ml Output Urine Total 1200 ml 900 ml Critical Care - Objective ET-Tube: 8.0 ET Position: 24 Last 24 Hour Vital Signs Date Time Temp Pulse Resp B/P Pulse Ox O2 Delivery O2 Flow Rate FiO2 07/10/16 04:00 98.2 94 20 94/55 99 Nasal Cannula 2.0 07/10/16 00:00 97.3 93 20 104/57 98 Nasal Cannula 2.0 07/09/16 20:00 81 07/09/16 20:00 97.2 102 18 101/58 98 07/09/16 19:25 98 07/09/16 16:09 97.9 85 18 106/66 98 Nasal Cannula 2.0 07/09/16 14:40 114/58 07/09/16 12:04 98.1 82 20 114/58 97 Nasal Cannula 2.0 07/09/16 12:00 92 Labs: Labs Test 07/08/16 06:00 07/10/16 05:45 Urine Osmolality 119 mOsmol/kg (.) Sodium Level 133 mEQ/L (135-145) 137 mEQ/L (135-145) Potassium Level 3.9 mEQ/L (3.4-4.9) 3.1 mEQ/L (3.4-4.9) Chloride Level 99 mEQ/L (98-107) 96 mEQ/L (98-107) Carbon Dioxide Level 17 mEQ/L (20-30) 17 mEQ/L (20-30) Anion Gap 17 (5-15) 24 (5-15) Blood Urea Nitrogen 6 mg/dL (7-23) 7 mg/dL (7-23) Creatinine 1.1 mg/dL (0.5-0.9) 1.1 mg/dL (0.5-0.9) Estimat Glomerular Filtration Rate mL/min (>60) mL/min (>60) Glucose Level 65 mg/dL (74-106) 59 mg/dL (74-106) Calcium Level 8.0 mg/dL (8.6-10.2) 8.2 mg/dL (8.6-10.2) White Blood Count 11.9 K/UL (4.8-10.8) Red Blood Count 3.18 M/UL (4.20-5.40) Hemoglobin 9.5 G/DL (12.0-16.0) Hematocrit 28.7 % (37.0-47.0) Mean Corpuscular Volume 90 FL (80-99) Mean Corpuscular Hemoglobin 29.7 PG (27.0-31.0) Mean Corpuscular Hemoglobin Concent 33.0 G/DL (32.0-36.0) Red Cell Distribution Width 14.0 % (11.6-14.8) Platelet Count 289 K/UL (150-450) Mean Platelet Volume 8.3 FL (6.5-10.1) Neutrophils (%) (Auto) 66.6 % (45.0-75.0) Lymphocytes (%) (Auto) 21.4 % (20.0-45.0) Monocytes (%) (Auto) 7.1 % (1.0-10.0) Eosinophils (%) (Auto) 4.4 % (0.0-3.0) Basophils (%) (Auto) 0.5 % (0.0-2.0) Total Bilirubin 0.4 mg/dL (0.0-1.2) Aspartate Amino Transf (AST/SGOT) 27 U/L (5-40) Alanine Aminotransferase (ALT/SGPT) 10 U/L (3-33) Alkaline Phosphatase 89 U/L (35-104) Pro-B-Type Natriuretic Peptide 2137 pg/mL (0-450) Total Protein 6.2 g/dL (6.6-8.7) Albumin 2.5 g/dL (3.5-5.2) Globulin 3.7 g/dL Albumin/Globulin Ratio 0.6 (1.0-2.7) Objective: GENERAL: A well-developed female, NAD HEENT: Fairly negative. NAD NECK: Supple. No jugular venous distention. LUNGS: stable breath sounds without rhonchi; Moderate air entry. without wheeze CARDIAC: S1 and S2. RRR without murmurs, rubs, or gallops. ABDOMEN: Soft, nontender, and nondistended. no HSM EXTREMITIES: No cyanosis or clubbing. No edema. NEUROLOGICAL: Grossly nonfocal. contracted and withdrawn reviewed and edited MARCELO BIRMINGHAM Jul 10, 2016 08:37
--- NOTE | 2016-07-10 08:37 | General Progress Note ---
Assessment/Plan Problem List: (1) Hypothyroid ICD Codes: E03.9 - Hypothyroid SNOMED: 95688375 (2) Septic shock ICD Codes: A41.9 - Sepsis, unspecified organism; R65.21 - Severe sepsis with septic shock SNOMED: 93324739 (3) Acute renal failure ICD Codes: N17.9 - Acute kidney failure, unspecified SNOMED: 61393760 Qualifiers: Qualified Codes: N17.0 - Acute kidney failure with tubular necrosis (4) Sepsis ICD Codes: A41.9 - Sepsis, unspecified organism SNOMED: 64915732 (5) Altered mental status ICD Codes: R41.82 - Altered mental status, unspecified SNOMED: 675242243 Qualifiers: Qualified Codes: R41.0 - Disorientation, unspecified (6) Acute delirium ICD Codes: R41.0 - Acute delirium SNOMED: 1182486 (7) UTI (lower urinary tract infection) ICD Codes: N39.0 - UTI (lower urinary tract infection) SNOMED: 3874902 Status: stable, progressing Assessment/Plan ivf ngt for meds abx per ID monitor lytes surgery input appreciated. possible surgical gt wednesday by d/w family Subjective ROS Limited/Unobtainable: No Constitutional: Reports: malaise, weakness HEENT: Reports: no symptoms Cardiovascular: Reports: no symptoms Respiratory: Reports: no symptoms Gastrointestinal/Abdominal: Reports: no symptoms Genitourinary: Reports: no symptoms Neurologic/Psychiatric: Reports: pre-existing deficit Endocrine: Reports: no symptoms Hematologic/Lymphatic: Reports: anemia Allergies: Coded Allergies: No Known Allergies (Unverified , 04/18/12) All Systems: reviewed and negative except above Subjective no change. too lethargic to eat. Pt tentatively scheduled for surgical GT wednesday Objective Last 24 Hour Vital Signs Date Time Temp Pulse Resp B/P Pulse Ox O2 Delivery O2 Flow Rate FiO2 07/10/16 04:00 98.2 94 20 94/55 99 Nasal Cannula 2.0 07/10/16 00:00 97.3 93 20 104/57 98 Nasal Cannula 2.0 07/09/16 20:00 81 07/09/16 20:00 97.2 102 18 101/58 98 07/09/16 19:25 98 07/09/16 16:09 97.9 85 18 106/66 98 Nasal Cannula 2.0 07/09/16 14:40 114/58 07/09/16 12:04 98.1 82 20 114/58 97 Nasal Cannula 2.0 07/09/16 12:00 92 Intake and Output 07/09/16 07/10/16 19:00 07:00 Intake Total 200 ml 395 ml Output Total 1200 ml 900 ml Balance -1000 ml -505 ml IV Total 200 ml 395 ml Output Urine Total 1200 ml 900 ml Laboratory Tests 07/10/16 05:45: White Blood Count 11.9H, Red Blood Count 3.18L, Hemoglobin 9.5L, Hematocrit 28.7L, Mean Corpuscular Volume 90, Mean Corpuscular Hemoglobin 29.7, Mean Corpuscular Hemoglobin Concent 33.0, Red Cell Distribution Width 14.0, Platelet Count 289, Mean Platelet Volume 8.3, Neutrophils (%) (Auto) 66.6, Lymphocytes (% ) (Auto) 21.4, Monocytes (%) (Auto) 7.1, Eosinophils (%) (Auto) 4.4H, Basophils (%) (Auto) 0.5, Sodium Level 137, Potassium Level 3.1L, Chloride Level 96L, Carbon Dioxide Level 17L, Anion Gap 24H, Blood Urea Nitrogen 7, Creatinine 1.1H , Estimat Glomerular Filtration Rate , Glucose Level 59L, Calcium Level 8.2L, Total Bilirubin 0.4, Aspartate Amino Transf (AST/SGOT) 27, Alanine Aminotransferase (ALT/SGPT) 10, Alkaline Phosphatase 89, Pro-B-Type Natriuretic Peptide 2137H, Total Protein 6.2L, Albumin 2.5L, Globulin 3.7, Albumin/Globulin Ratio 0.6L Height (Feet): 5 Height (Inches): 2.99 Weight (Pounds): 102 Objective General Appearance: WD/WN, lethargic, confused Neck: supple Cardiovascular: normal rate, regular rhythm Respiratory/Chest: lungs clear, normal breath sounds, no respiratory distress, no accessory muscle use Abdomen: normal bowel sounds, non tender, soft, no organomegaly Edema: no edema noted Arm (L), no edema noted Arm (R), no edema noted Leg (L), no edema noted Leg (R), no edema noted Pedal (L), no edema noted Pedal (R), no edema noted Generalized Neurologic: disoriented Skin: normal pigmentation, warm/dry HA FRANCIS Jul 10, 2016 08:37
[2016-07-10] MEDS: Pantoprazole Inj IVP SCH (09:00)
[2016-07-10] MEDS ORDERED: Lisinopril 10mg tab NG SCH (09:00)
[2016-07-10] MEDS: Aspirin Baby 81mg ORAL SCH (09:00)
[2016-07-10] MEDS: Multivitamin 5ml Liquid GT SCH (09:00)
[2016-07-10] MEDS: Lisinopril 10mg tab NG SCH (09:00)
[2016-07-10] MEDS: Vitamin D 1000 IU Tab ORAL SCH (09:00)
[2016-07-10 11:23] VITALS: BP 79/49
--- NOTE | 2016-07-10 11:32 | Infectious Diseases Prog Note ---
Assessment/Plan Assessment/Plan antibiotics : none A 1. klebsiella UTI s/p rx 2. shock resolved 3. respiratory failure resolved 4. renal failure improving 5. leucocytosis improving P 1. continue off antibiotics 2. GT planned Subjective ROS Limited/Unobtainable: Yes Allergies: Coded Allergies: No Known Allergies (Unverified , 04/18/12) Objective Vital Signs Last 24 Hour Vital Signs Date Time Temp Pulse Resp B/P Pulse Ox O2 Delivery O2 Flow Rate FiO2 07/10/16 11:23 86 17 79/49 Nasal Cannula 07/10/16 08:00 93 17 93/56 99 Nasal Cannula 07/10/16 04:00 98.2 94 20 94/55 99 Nasal Cannula 2.0 07/10/16 00:00 97.3 93 20 104/57 98 Nasal Cannula 2.0 07/09/16 20:00 81 07/09/16 20:00 97.2 102 18 101/58 98 07/09/16 19:25 98 07/09/16 16:09 97.9 85 18 106/66 98 Nasal Cannula 2.0 07/09/16 14:40 114/58 07/09/16 12:04 98.1 82 20 114/58 97 Nasal Cannula 2.0 07/09/16 12:00 92 Height (Feet): 5 Height (Inches): 2.99 Weight (Pounds): 102 Respiratory/Chest: lungs clear Cardiovascular: normal rate, regular rhythm, no gallop/murmur Abdomen: soft, non tender Extremities: no edema Laboratory Tests Test 07/10/16 05:45 White Blood Count 11.9 K/UL (4.8-10.8) H Red Blood Count 3.18 M/UL (4.20-5.40) L Hemoglobin 9.5 G/DL (12.0-16.0) L Hematocrit 28.7 % (37.0-47.0) L Mean Corpuscular Volume 90 FL (80-99) Mean Corpuscular Hemoglobin 29.7 PG (27.0-31.0) Mean Corpuscular Hemoglobin Concent 33.0 G/DL (32.0-36.0) Red Cell Distribution Width 14.0 % (11.6-14.8) Platelet Count 289 K/UL (150-450) Mean Platelet Volume 8.3 FL (6.5-10.1) Neutrophils (%) (Auto) 66.6 % (45.0-75.0) Lymphocytes (%) (Auto) 21.4 % (20.0-45.0) Monocytes (%) (Auto) 7.1 % (1.0-10.0) Eosinophils (%) (Auto) 4.4 % (0.0-3.0) H Basophils (%) (Auto) 0.5 % (0.0-2.0) Sodium Level 137 mEQ/L (135-145) Potassium Level 3.1 mEQ/L (3.4-4.9) L Chloride Level 96 mEQ/L (98-107) L Carbon Dioxide Level 17 mEQ/L (20-30) L Anion Gap 24 (5-15) H Blood Urea Nitrogen 7 mg/dL (7-23) Creatinine 1.1 mg/dL (0.5-0.9) H Estimat Glomerular Filtration Rate mL/min (>60) Glucose Level 59 mg/dL (74-106) L Calcium Level 8.2 mg/dL (8.6-10.2) L Total Bilirubin 0.4 mg/dL (0.0-1.2) Aspartate Amino Transf (AST/SGOT) 27 U/L (5-40) Alanine Aminotransferase (ALT/SGPT) 10 U/L (3-33) Alkaline Phosphatase 89 U/L (35-104) Pro-B-Type Natriuretic Peptide 2137 pg/mL (0-450) H Total Protein 6.2 g/dL (6.6-8.7) L Albumin 2.5 g/dL (3.5-5.2) L Globulin 3.7 g/dL Albumin/Globulin Ratio 0.6 (1.0-2.7) L DAMIAN GUZMAN Jul 10, 2016 11:32
[2016-07-10 16:00] VITALS: BP 89/50
--- NOTE | 2016-07-10 18:42 | Nephrology Progress Note ---
Assessment/Plan Problem List: (1) Pyelonephritis (2) Acute hypernatremia (3) Dehydration (4) Sepsis (5) MARCELLE (acute kidney injury) (6) Septic shock (7) Respiratory alkalosis (8) Hyponatremia Plan still needs iv rehydration, lab trend better, Na lower now improving continuing rx klebsiella uti low K replete Subjective ROS Limited/Unobtainable: Yes Objective Objective Last 24 Hour Vital Signs Date Time Temp Pulse Resp B/P Pulse Ox O2 Delivery O2 Flow Rate FiO2 07/10/16 16:00 98.2 94 19 89/50 97 Room Air 07/10/16 11:23 86 17 79/49 Nasal Cannula 07/10/16 08:00 93 17 93/56 99 Nasal Cannula 07/10/16 04:00 98.2 94 20 94/55 99 Nasal Cannula 2.0 07/10/16 00:00 97.3 93 20 104/57 98 Nasal Cannula 2.0 07/09/16 20:00 81 07/09/16 20:00 97.2 102 18 101/58 98 07/09/16 19:25 98 Intake and Output 07/09/16 07/10/16 19:00 07:00 Intake Total 200 ml 395 ml Output Total 1200 ml 900 ml Balance -1000 ml -505 ml IV Total 200 ml 395 ml Output Urine Total 1200 ml 900 ml Laboratory Tests 07/10/16 05:45: White Blood Count 11.9H, Red Blood Count 3.18L, Hemoglobin 9.5L, Hematocrit 28.7L, Mean Corpuscular Volume 90, Mean Corpuscular Hemoglobin 29.7, Mean Corpuscular Hemoglobin Concent 33.0, Red Cell Distribution Width 14.0, Platelet Count 289, Mean Platelet Volume 8.3, Neutrophils (%) (Auto) 66.6, Lymphocytes (% ) (Auto) 21.4, Monocytes (%) (Auto) 7.1, Eosinophils (%) (Auto) 4.4H, Basophils (%) (Auto) 0.5, Sodium Level 137, Potassium Level 3.1L, Chloride Level 96L, Carbon Dioxide Level 17L, Anion Gap 24H, Blood Urea Nitrogen 7, Creatinine 1.1H , Estimat Glomerular Filtration Rate , Glucose Level 59L, Calcium Level 8.2L, Total Bilirubin 0.4, Aspartate Amino Transf (AST/SGOT) 27, Alanine Aminotransferase (ALT/SGPT) 10, Alkaline Phosphatase 89, Pro-B-Type Natriuretic Peptide 2137H, Total Protein 6.2L, Albumin 2.5L, Globulin 3.7, Albumin/Globulin Ratio 0.6L Height (Feet): 5 Height (Inches): 2.99 Weight (Pounds): 102 General Appearance: confused EENT: normal ENT inspection Neck: normal alignment Cardiovascular: normal rate Respiratory/Chest: lungs clear Abdomen: non tender, soft Extremities: other - contracted JILL GASPAR Jul 10, 2016 18:42
[2016-07-10 19:00] VITALS: BP 102/48
[2016-07-10] MEDS: KCl 10% 40mEq/30ml liquid GT SCH ×2 (19:33→21:07)
[2016-07-10] MEDS: Atorvastatin 20mg tab ORAL SCH (21:07)
--- NOTE | 2016-07-10 22:00 | General Progress Note ---
Assessment/Plan Assessment/Plan Assessment - hyponatremia - OBS - Respiratory failure - UTI - Mild Leukocytosis - malnutrition - EGD shows large HH - NGT placed under direct vision in gastric cavity-but tip still in lower chest - Much of stomach appears to be in the chest - unable to identify clear landmarks for endoscopic PEG placement - Need surgical GT placement Recommendation - Begin TF - monitor Na level - Free water restriction - NPO - Await surgical opinion re GT placement Subjective Allergies: Coded Allergies: No Known Allergies (Unverified , 04/18/12) Subjective NAD sitter at bedside no events overnight surgery cannot be done until Wednesday Objective Last 24 Hour Vital Signs Date Time Temp Pulse Resp B/P Pulse Ox O2 Delivery O2 Flow Rate FiO2 07/10/16 19:00 97.5 100 20 102/48 100 Room Air 07/10/16 16:00 98.2 94 19 89/50 97 Room Air 07/10/16 11:23 86 17 79/49 Nasal Cannula 07/10/16 08:00 93 17 93/56 99 Nasal Cannula 07/10/16 04:00 98.2 94 20 94/55 99 Nasal Cannula 2.0 07/10/16 00:00 97.3 93 20 104/57 98 Nasal Cannula 2.0 Intake and Output 07/09/16 07/10/16 19:00 07:00 Intake Total 200 ml 395 ml Output Total 1200 ml 900 ml Balance -1000 ml -505 ml IV Total 200 ml 395 ml Output Urine Total 1200 ml 900 ml Laboratory Tests 07/10/16 05:45: White Blood Count 11.9H, Red Blood Count 3.18L, Hemoglobin 9.5L, Hematocrit 28.7L, Mean Corpuscular Volume 90, Mean Corpuscular Hemoglobin 29.7, Mean Corpuscular Hemoglobin Concent 33.0, Red Cell Distribution Width 14.0, Platelet Count 289, Mean Platelet Volume 8.3, Neutrophils (%) (Auto) 66.6, Lymphocytes (% ) (Auto) 21.4, Monocytes (%) (Auto) 7.1, Eosinophils (%) (Auto) 4.4H, Basophils (%) (Auto) 0.5, Sodium Level 137, Potassium Level 3.1L, Chloride Level 96L, Carbon Dioxide Level 17L, Anion Gap 24H, Blood Urea Nitrogen 7, Creatinine 1.1H , Estimat Glomerular Filtration Rate , Glucose Level 59L, Calcium Level 8.2L, Total Bilirubin 0.4, Aspartate Amino Transf (AST/SGOT) 27, Alanine Aminotransferase (ALT/SGPT) 10, Alkaline Phosphatase 89, Pro-B-Type Natriuretic Peptide 2137H, Total Protein 6.2L, Albumin 2.5L, Globulin 3.7, Albumin/Globulin Ratio 0.6L Height (Feet): 5 Height (Inches): 2.99 Weight (Pounds): 102 Objective Thin WW NCAT, (+) NGT supple CTA RRR Soft Flat ND (+) contractures (+) OBS KALEE SERRATO Jul 10, 2016 22:00
[2016-07-11] VITALS (8 sets, daily range): BP systolic 94–114; BP diastolic 45–70
[2016-07-11] MEDS: Levothyroxine 125mcg tab ORAL SCH ×2 (06:30→06:57)
[2016-07-11] MEDS: Lisinopril 10mg tab NG SCH (07:59)
[2016-07-11] MEDS: Multivitamin 5ml Liquid GT SCH (07:59)
[2016-07-11] MEDS: Vitamin D 1000 IU Tab ORAL SCH (08:00)
[2016-07-11] MEDS: Aspirin Baby 81mg ORAL SCH (08:00)
[2016-07-11] MEDS: Pantoprazole Inj IVP SCH (08:48)
--- NOTE | 2016-07-11 09:09 | General Progress Note ---
Assessment/Plan Problem List: (1) Hypothyroid ICD Codes: E03.9 - Hypothyroid SNOMED: 52814947 (2) Septic shock ICD Codes: A41.9 - Sepsis, unspecified organism; R65.21 - Severe sepsis with septic shock SNOMED: 87614885 (3) Acute renal failure ICD Codes: N17.9 - Acute kidney failure, unspecified SNOMED: 03433506 Qualifiers: Qualified Codes: N17.0 - Acute kidney failure with tubular necrosis (4) Sepsis ICD Codes: A41.9 - Sepsis, unspecified organism SNOMED: 95389162 (5) Altered mental status ICD Codes: R41.82 - Altered mental status, unspecified SNOMED: 081546767 Qualifiers: Qualified Codes: R41.0 - Disorientation, unspecified (6) Acute delirium ICD Codes: R41.0 - Acute delirium SNOMED: 6579506 (7) UTI (lower urinary tract infection) ICD Codes: N39.0 - UTI (lower urinary tract infection) SNOMED: 2844510 Status: stable, progressing Assessment/Plan ivf ngt for meds. ?able to feed abx per ID monitor lytes surgery input appreciated. surgical gt wednesday by d/w family Subjective ROS Limited/Unobtainable: Yes Constitutional: Reports: malaise, weakness HEENT: Reports: no symptoms Cardiovascular: Reports: no symptoms Respiratory: Reports: no symptoms Gastrointestinal/Abdominal: Reports: difficulty swallowing Genitourinary: Reports: no symptoms Neurologic/Psychiatric: Reports: pre-existing deficit Endocrine: Reports: no symptoms Hematologic/Lymphatic: Reports: anemia Allergies: Coded Allergies: No Known Allergies (Unverified , 04/18/12) All Systems: reviewed and negative except above Subjective no change. too lethargic to eat. Pt tentatively scheduled for surgical GT wednesday Objective Last 24 Hour Vital Signs Date Time Temp Pulse Resp B/P Pulse Ox O2 Delivery O2 Flow Rate FiO2 07/11/16 07:59 103/55 07/11/16 07:52 97.7 93 16 103/55 97 Nasal Cannula 07/11/16 04:00 97.9 98 20 105/62 95 Room Air 07/11/16 00:00 98.2 94 20 102/45 94 Room Air 07/10/16 19:00 97.5 100 20 102/48 100 Room Air 07/10/16 16:00 98.2 94 19 89/50 97 Room Air 07/10/16 11:23 86 17 79/49 Nasal Cannula Intake and Output 07/10/16 07/11/16 19:00 07:00 Intake Total 1090 ml 50 ml Output Total 600 ml 850 ml Balance 490 ml -800 ml Free Water 20 ml 50 ml IV Total 1035 ml Tube Feeding 35 ml Output Urine Total 600 ml 850 ml # Bowel Movements 1 Height (Feet): 5 Height (Inches): 2.99 Weight (Pounds): 102 Objective General Appearance: WD/WN, lethargic, confused Neck: supple Cardiovascular: normal rate, regular rhythm Respiratory/Chest: lungs clear, normal breath sounds, no respiratory distress, no accessory muscle use Abdomen: normal bowel sounds, non tender, soft, no organomegaly Edema: no edema noted Arm (L), no edema noted Arm (R), no edema noted Leg (L), no edema noted Leg (R), no edema noted Pedal (L), no edema noted Pedal (R), no edema noted Generalized Neurologic: disoriented Skin: normal pigmentation, warm/dry HA FRANCIS Jul 11, 2016 09:09
--- NOTE | 2016-07-11 09:20 | Wound Care Consultation ---
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 YURI GONZALEZ Jul 11, 2016 09:20
--- NOTE | 2016-07-11 11:58 | Critical Care Progress Note ---
Assessment/Plan Assessment/Plan IMPRESSION: Respiratory failure, mostly due to metabolic acidosis (improved), presumed sepsis, shock, hypothermia, hypotension, history of dementia, history congestive heart failure, history of coronary artery disease, history of hypertension, possible acute on chronic renal failure, significant lactic acidemia, protein-calorie malnutrition, and profound leukocytosis. PLAN pulmonary same at present care reviewed in detail no distress all noted and reviewed dc planning noted optimize and advance care as able will follow up medications/laboratory data/nursing notes reviewed in detail note reviewed and edited care discussed with RN and RT Critical Care - Subjective Interval Events: comfortable at present no distress ROS Limited/Unobtainable: Yes EKG Rhythm: Sinus Rhythm I&O: Intake and Output 07/10/16 07/11/16 19:00 07:00 Intake Total 1090 ml 50 ml Output Total 600 ml 850 ml Balance 490 ml -800 ml Free Water 20 ml 50 ml IV Total 1035 ml Tube Feeding 35 ml Output Urine Total 600 ml 850 ml # Bowel Movements 1 Critical Care - Objective ET-Tube: 8.0 ET Position: 24 Last 24 Hour Vital Signs Date Time Temp Pulse Resp B/P Pulse Ox O2 Delivery O2 Flow Rate FiO2 07/11/16 07:59 103/55 07/11/16 07:52 97.7 93 16 103/55 97 Nasal Cannula 07/11/16 04:00 97.9 98 20 105/62 95 Room Air 07/11/16 00:00 98.2 94 20 102/45 94 Room Air 07/10/16 19:00 97.5 100 20 102/48 100 Room Air 07/10/16 16:00 98.2 94 19 89/50 97 Room Air Objective: GENERAL: A well-developed female, NAD HEENT: Fairly negative. NAD NECK: Supple. No jugular venous distention. LUNGS: stable breath sounds without rhonchi; Moderate air entry. without wheeze CARDIAC: S1 and S2. RRR without murmurs, rubs, or gallops. ABDOMEN: Soft, nontender, and nondistended. no HSM EXTREMITIES: No cyanosis or clubbing. No edema. NEUROLOGICAL: Grossly nonfocal. contracted and withdrawn reviewed and edited MARCELO BIRMINGHAM Jul 11, 2016 11:58
[2016-07-11] MEDS ORDERED: NS 550ML IV ONE (13:27)
--- NOTE | 2016-07-11 18:00 | Nephrology Progress Note ---
Assessment/Plan Problem List: (1) Pyelonephritis (2) Acute hypernatremia (3) Dehydration (4) Sepsis (5) MARCELLE (acute kidney injury) (6) Septic shock (7) Respiratory alkalosis (8) Hyponatremia (9) Hypokalemia Plan still needs iv rehydration, lab trend better, Na lower now improving continuing rx klebsiella uti low K replete, npo today Subjective ROS Limited/Unobtainable: Yes Objective Objective Last 24 Hour Vital Signs Date Time Temp Pulse Resp B/P Pulse Ox O2 Delivery O2 Flow Rate FiO2 07/11/16 16:05 98.6 101 18 94/57 96 Room Air 07/11/16 15:37 98.6 101 18 94/57 96 Nasal Cannula 07/11/16 12:08 97.7 69 14 109/65 96 Nasal Cannula 07/11/16 07:59 103/55 07/11/16 07:52 97.7 93 16 103/55 97 Nasal Cannula 07/11/16 04:00 97.9 98 20 105/62 95 Room Air 07/11/16 00:00 98.2 94 20 102/45 94 Room Air 07/10/16 19:00 97.5 100 20 102/48 100 Room Air Intake and Output 07/10/16 07/11/16 19:00 07:00 Intake Total 1090 ml 50 ml Output Total 600 ml 850 ml Balance 490 ml -800 ml Free Water 20 ml 50 ml IV Total 1035 ml Tube Feeding 35 ml Output Urine Total 600 ml 850 ml # Bowel Movements 1 Height (Feet): 5 Height (Inches): 2.99 Weight (Pounds): 102 General Appearance: confused, thin EENT: normal ENT inspection Neck: normal alignment Cardiovascular: normal rate, regular rhythm Respiratory/Chest: lungs clear Abdomen: soft Extremities: other - contracted JILL GASPAR Jul 11, 2016 18:00
--- NOTE | 2016-07-11 18:38 | General Progress Note ---
Assessment/Plan Assessment/Plan Assessment - hyponatremia - OBS - Respiratory failure - UTI - Mild Leukocytosis - malnutrition - EGD shows large HH - NGT placed under direct vision in gastric cavity-but tip still in lower chest - Much of stomach appears to be in the chest - unable to identify clear landmarks for endoscopic PEG placement - Need surgical GT placement Recommendation - OK to continue TF - monitor Na level - Free water restriction - NPO via oral route - Await surgical opinion re GT placement Subjective Allergies: Coded Allergies: No Known Allergies (Unverified , 04/18/12) Subjective NAD sitter at bedside no events overnight await surgery TF off - advised RN to restart Objective Last 24 Hour Vital Signs Date Time Temp Pulse Resp B/P Pulse Ox O2 Delivery O2 Flow Rate FiO2 07/11/16 16:05 98.6 101 18 94/57 96 Room Air 07/11/16 15:37 98.6 101 18 94/57 96 Nasal Cannula 07/11/16 12:08 97.7 69 14 109/65 96 Nasal Cannula 07/11/16 07:59 103/55 07/11/16 07:52 97.7 93 16 103/55 97 Nasal Cannula 07/11/16 04:00 97.9 98 20 105/62 95 Room Air 07/11/16 00:00 98.2 94 20 102/45 94 Room Air 07/10/16 19:00 97.5 100 20 102/48 100 Room Air Intake and Output 07/10/16 07/11/16 19:00 07:00 Intake Total 1090 ml 50 ml Output Total 600 ml 850 ml Balance 490 ml -800 ml Free Water 20 ml 50 ml IV Total 1035 ml Tube Feeding 35 ml Output Urine Total 600 ml 850 ml # Bowel Movements 1 Height (Feet): 5 Height (Inches): 2.99 Weight (Pounds): 102 Objective Thin WW NCAT, (+) NGT supple CTA RRR Soft Flat ND (+) contractures (+) OBS KALEE SERRATO Jul 11, 2016 18:37
[2016-07-11] MEDS: Atorvastatin 20mg tab ORAL SCH (21:26)
[2016-07-12 04:00] VITALS: BP 107/62
--- NOTE | 2016-07-12 06:07 | Critical Care Progress Note ---
Assessment/Plan Assessment/Plan IMPRESSION: Respiratory failure, mostly due to metabolic acidosis (improved), presumed sepsis, shock, hypothermia, hypotension, history of dementia, history congestive heart failure, history of coronary artery disease, history of hypertension, possible acute on chronic renal failure, significant lactic acidemia, protein-calorie malnutrition, and profound leukocytosis. PLAN pulmonary same at present exam without real change care reviewed in detail no distress all noted and reviewed dc planning noted optimize and advance care as able will follow up monitor for aspiration medications/laboratory data/nursing notes reviewed in detail note reviewed and edited care discussed with RN and RT Critical Care - Subjective ROS Limited/Unobtainable: Yes Condition: unchanged EKG Rhythm: Sinus Rhythm I&O: Intake and Output 07/11/16 07/12/16 19:00 07:00 Intake Total 520 ml 235 ml Output Total 200 ml 150 ml Balance 320 ml 85 ml Free Water 30 ml 60 ml IV Total 210 ml Tube Feeding 280 ml 175 ml Output Urine Total 200 ml 150 ml Critical Care - Objective ET-Tube: 8.0 ET Position: 24 Last 24 Hour Vital Signs Date Time Temp Pulse Resp B/P Pulse Ox O2 Delivery O2 Flow Rate FiO2 07/12/16 04:00 98.2 100 20 107/62 97 Room Air 07/11/16 23:40 97.7 98 20 114/66 96 Room Air 07/11/16 20:00 97.3 113 18 101/70 97 Nasal Cannula 2.0 07/11/16 16:05 98.6 101 18 94/57 96 Room Air 07/11/16 15:37 98.6 101 18 94/57 96 Nasal Cannula 07/11/16 12:08 97.7 69 14 109/65 96 Nasal Cannula 07/11/16 07:59 103/55 07/11/16 07:52 97.7 93 16 103/55 97 Nasal Cannula Objective: GENERAL: A well-developed female, NAD HEENT: Fairly negative. NAD NECK: Supple. No jugular venous distention. LUNGS: stable breath sounds without rhonchi; Moderate air entry. without wheeze CARDIAC: S1 and S2. RRR without murmurs, rubs, or gallops. ABDOMEN: Soft, nontender, and nondistended. no HSM EXTREMITIES: No cyanosis or clubbing. No edema. NEUROLOGICAL: Grossly nonfocal. contracted and withdrawn reviewed and edited MARCELO BIRMINGHAM Jul 12, 2016 06:07
[2016-07-12] MEDS: Levothyroxine 125mcg tab ORAL SCH (07:03)
[2016-07-12 07:52] VITALS: BP 134/76
[2016-07-12] MEDS: Aspirin Baby 81mg ORAL SCH (09:00)
--- NOTE | 2016-07-12 09:00 | General Progress Note ---
Assessment/Plan Problem List: (1) Hypothyroid ICD Codes: E03.9 - Hypothyroid SNOMED: 21843151 (2) Septic shock ICD Codes: A41.9 - Sepsis, unspecified organism; R65.21 - Severe sepsis with septic shock SNOMED: 57579001 (3) Acute renal failure ICD Codes: N17.9 - Acute kidney failure, unspecified SNOMED: 21411897 Qualifiers: Qualified Codes: N17.0 - Acute kidney failure with tubular necrosis (4) Sepsis ICD Codes: A41.9 - Sepsis, unspecified organism SNOMED: 89248872 (5) Altered mental status ICD Codes: R41.82 - Altered mental status, unspecified SNOMED: 914027338 Qualifiers: Qualified Codes: R41.0 - Disorientation, unspecified (6) Acute delirium ICD Codes: R41.0 - Acute delirium SNOMED: 5561605 (7) UTI (lower urinary tract infection) ICD Codes: N39.0 - UTI (lower urinary tract infection) SNOMED: 0434267 Status: stable, progressing Assessment/Plan ivf ngt for meds. ?able to feed abx per ID monitor lytes surgery input appreciated. surgical gt tomorrow by d/w family Subjective ROS Limited/Unobtainable: Yes Constitutional: Reports: malaise, weakness HEENT: Reports: no symptoms Cardiovascular: Reports: no symptoms Respiratory: Reports: no symptoms Gastrointestinal/Abdominal: Reports: difficulty swallowing, poor appetite Genitourinary: Reports: no symptoms Neurologic/Psychiatric: Reports: pre-existing deficit Endocrine: Reports: no symptoms Hematologic/Lymphatic: Reports: no symptoms Allergies: Coded Allergies: No Known Allergies (Unverified , 04/18/12) All Systems: reviewed and negative except above Subjective no change. too lethargic to eat. Pt tentatively scheduled for surgical GT wednesday. remains on ivf. no distress. Objective Last 24 Hour Vital Signs Date Time Temp Pulse Resp B/P Pulse Ox O2 Delivery O2 Flow Rate FiO2 07/12/16 07:52 98.0 107 20 134/76 97 Nasal Cannula 07/12/16 04:00 98.2 100 20 107/62 97 Room Air 07/11/16 23:40 97.7 98 20 114/66 96 Room Air 07/11/16 20:00 97.3 113 18 101/70 97 Nasal Cannula 2.0 07/11/16 16:05 98.6 101 18 94/57 96 Room Air 07/11/16 15:37 98.6 101 18 94/57 96 Nasal Cannula 07/11/16 12:08 97.7 69 14 109/65 96 Nasal Cannula Intake and Output 07/11/16 07/12/16 19:00 07:00 Intake Total 520 ml 705 ml Output Total 200 ml 400 ml Balance 320 ml 305 ml Free Water 30 ml 80 ml IV Total 210 ml 240 ml Tube Feeding 280 ml 385 ml Output Urine Total 200 ml 400 ml # Bowel Movements 1 Height (Feet): 5 Height (Inches): 2.99 Weight (Pounds): 102 Objective General Appearance: WD/WN, lethargic, confused Neck: supple Cardiovascular: normal rate, regular rhythm Respiratory/Chest: lungs clear, normal breath sounds, no respiratory distress, no accessory muscle use Abdomen: normal bowel sounds, non tender, soft, no organomegaly Edema: no edema noted Arm (L), no edema noted Arm (R), no edema noted Leg (L), no edema noted Leg (R), no edema noted Pedal (L), no edema noted Pedal (R), no edema noted Generalized Neurologic: disoriented Skin: normal pigmentation, warm/dry HA FRANCIS Jul 12, 2016 09:00
[2016-07-12 09:41] LABS: BASOPHILS % (AUTO) 0.5 % (0.0-2.0); EOSINOPHILS % (AUTO) 5.9 % (0.0-3.0); LYMPHOCYTES % (AUTO) 22.7 % (20.0-45.0); MEAN CORPUSCULAR HEMOGLOBIN 29.9 PG (27.0-31.0); MEAN CORPUSCULAR HGB CONC 33.2 G/DL (32.0-36.0); MEAN CORPUSCULAR VOLUME 90 FL (80-99); MEAN PLATELET VOLUME 7.5 FL (6.5-10.1); MONOCYTES % (AUTO) 7.2 % (1.0-10.0); NEUTROPHILS % (AUTO) 63.7 % (45.0-75.0); PLATELET COUNT 325 K/UL (150-450); RED CELL DISTRIBUTION WIDTH 14.4 % (11.6-14.8); WHITE BLOOD COUNT 11.2 K/UL (4.8-10.8)
[2016-07-12] MEDS ORDERED: Sterile Water Irrig 1000ml IRRIG ONE (09:53)
[2016-07-12 09:54] LABS: ALANINE AMINOTRANSFERASE 9 U/L (3-33); ALBUMIN/GLOBULIN RATIO 0.6 (1.0-2.7); ANION GAP 17 (5-15); ASPARTATE AMINO TRANSFERASE 16 U/L (5-40); CALCIUM 8.3 mg/dL (8.6-10.2); CARBON DIOXIDE 18 mEQ/L (20-30); CHLORIDE 112 mEQ/L (98-107); CREATININE 0.9 mg/dL (0.5-0.9); HEMOLYSIS 1; POTASSIUM 3.6 mEQ/L (3.4-4.9); SODIUM 147 mEQ/L (135-145); TOTAL PROTEIN 6.3 g/dL (6.6-8.7)
[2016-07-12 09:57] LABS: INR 1.3 (0.9-1.1); PROTHROMBIN TIME 13.5 SEC (9.30-11.50)
--- NOTE | 2016-07-12 11:07 | Nephrology Progress Note ---
Assessment/Plan Problem List: (1) Pyelonephritis (2) Acute hypernatremia (3) Dehydration (4) Sepsis (5) MARCELLE (acute kidney injury) (6) Septic shock (7) Respiratory alkalosis (8) Hyponatremia (9) Hypokalemia Plan still needs iv rehydration, lab trend better, Na lower now improving continuing rx klebsiella uti low K replete, npo now restarting feeding Subjective ROS Limited/Unobtainable: Yes Objective Objective Last 24 Hour Vital Signs Date Time Temp Pulse Resp B/P Pulse Ox O2 Delivery O2 Flow Rate FiO2 07/12/16 07:52 98.0 107 20 134/76 97 Nasal Cannula 07/12/16 04:00 98.2 100 20 107/62 97 Room Air 07/11/16 23:40 97.7 98 20 114/66 96 Room Air 07/11/16 20:00 97.3 113 18 101/70 97 Nasal Cannula 2.0 07/11/16 16:05 98.6 101 18 94/57 96 Room Air 07/11/16 15:37 98.6 101 18 94/57 96 Nasal Cannula 07/11/16 12:08 97.7 69 14 109/65 96 Nasal Cannula Intake and Output 07/11/16 07/12/16 19:00 07:00 Intake Total 520 ml 705 ml Output Total 200 ml 400 ml Balance 320 ml 305 ml Free Water 30 ml 80 ml IV Total 210 ml 240 ml Tube Feeding 280 ml 385 ml Output Urine Total 200 ml 400 ml # Bowel Movements 1 Laboratory Tests 07/12/16 09:00: White Blood Count 11.2H, Red Blood Count 3.30L, Hemoglobin 9.9L, Hematocrit 29.7L, Mean Corpuscular Volume 90, Mean Corpuscular Hemoglobin 29.9, Mean Corpuscular Hemoglobin Concent 33.2, Red Cell Distribution Width 14.4, Platelet Count 325, Mean Platelet Volume 7.5, Neutrophils (%) (Auto) 63.7, Lymphocytes (% ) (Auto) 22.7, Monocytes (%) (Auto) 7.2, Eosinophils (%) (Auto) 5.9H, Basophils (%) (Auto) 0.5, Prothrombin Time 13.5H, Prothromb Time International Ratio 1.3H , Activated Partial Thromboplast Time 32, Sodium Level 147H, Potassium Level 3.6 , Chloride Level 112H, Carbon Dioxide Level 18L, Anion Gap 17H, Blood Urea Nitrogen 7, Creatinine 0.9, Estimat Glomerular Filtration Rate , Glucose Level 158H, Calcium Level 8.3L, Total Bilirubin 0.3, Aspartate Amino Transf (AST/SGOT ) 16, Alanine Aminotransferase (ALT/SGPT) 9, Alkaline Phosphatase 97, Total Protein 6.3L, Albumin 2.5L, Globulin 3.8, Albumin/Globulin Ratio 0.6L Height (Feet): 5 Height (Inches): 2.99 Weight (Pounds): 102 General Appearance: no apparent distress, confused EENT: normal ENT inspection Neck: normal alignment Cardiovascular: regular rhythm Respiratory/Chest: lungs clear Abdomen: non tender Neurologic: motor weakness JILL GASPAR Jul 12, 2016 11:07
[2016-07-12] MEDS: Multivitamin 5ml Liquid GT SCH (11:40)
[2016-07-12] MEDS: Vitamin D 1000 IU Tab ORAL SCH (11:40)
[2016-07-12] MEDS: Pantoprazole Inj IVP SCH (11:41)
[2016-07-12] MEDS: Lisinopril 10mg tab NG SCH (11:46)
[2016-07-12 12:03] VITALS: BP 101/68
--- NOTE | 2016-07-12 12:06 | Infectious Diseases Prog Note ---
Assessment/Plan Assessment/Plan A 1. klebsiella UTI s/p RX 3. shock resolved 4. respiratory failure resolved 5. renal failure improving 6. leucocytosis resolved P 1. observe off antibiotic 2. waiting for GT placement Subjective ROS Limited/Unobtainable: Yes Allergies: Coded Allergies: No Known Allergies (Unverified , 04/18/12) Objective Vital Signs Last 24 Hour Vital Signs Date Time Temp Pulse Resp B/P Pulse Ox O2 Delivery O2 Flow Rate FiO2 07/12/16 11:46 101/68 07/12/16 07:52 98.0 107 20 134/76 97 Nasal Cannula 07/12/16 04:00 98.2 100 20 107/62 97 Room Air 07/11/16 23:40 97.7 98 20 114/66 96 Room Air 07/11/16 20:00 97.3 113 18 101/70 97 Nasal Cannula 2.0 07/11/16 16:05 98.6 101 18 94/57 96 Room Air 07/11/16 15:37 98.6 101 18 94/57 96 Nasal Cannula 07/11/16 12:08 97.7 69 14 109/65 96 Nasal Cannula Height (Feet): 5 Height (Inches): 2.99 Weight (Pounds): 102 General Appearance: no acute distress Respiratory/Chest: lungs clear Cardiovascular: normal rate Abdomen: soft, non tender, other - NG tube feeding Extremities: no edema Neurologic/Psychiatric: alert Laboratory Tests Test 07/12/16 09:00 White Blood Count 11.2 K/UL (4.8-10.8) H Red Blood Count 3.30 M/UL (4.20-5.40) L Hemoglobin 9.9 G/DL (12.0-16.0) L Hematocrit 29.7 % (37.0-47.0) L Mean Corpuscular Volume 90 FL (80-99) Mean Corpuscular Hemoglobin 29.9 PG (27.0-31.0) Mean Corpuscular Hemoglobin Concent 33.2 G/DL (32.0-36.0) Red Cell Distribution Width 14.4 % (11.6-14.8) Platelet Count 325 K/UL (150-450) Mean Platelet Volume 7.5 FL (6.5-10.1) Neutrophils (%) (Auto) 63.7 % (45.0-75.0) Lymphocytes (%) (Auto) 22.7 % (20.0-45.0) Monocytes (%) (Auto) 7.2 % (1.0-10.0) Eosinophils (%) (Auto) 5.9 % (0.0-3.0) H Basophils (%) (Auto) 0.5 % (0.0-2.0) Prothrombin Time 13.5 SEC (9.30-11.50) H Prothromb Time International Ratio 1.3 (0.9-1.1) H Activated Partial Thromboplast Time 32 SEC (23-33) Sodium Level 147 mEQ/L (135-145) H Potassium Level 3.6 mEQ/L (3.4-4.9) Chloride Level 112 mEQ/L (98-107) H Carbon Dioxide Level 18 mEQ/L (20-30) L Anion Gap 17 (5-15) H Blood Urea Nitrogen 7 mg/dL (7-23) Creatinine 0.9 mg/dL (0.5-0.9) Estimat Glomerular Filtration Rate mL/min (>60) Glucose Level 158 mg/dL (74-106) H Calcium Level 8.3 mg/dL (8.6-10.2) L Total Bilirubin 0.3 mg/dL (0.0-1.2) Aspartate Amino Transf (AST/SGOT) 16 U/L (5-40) Alanine Aminotransferase (ALT/SGPT) 9 U/L (3-33) Alkaline Phosphatase 97 U/L (35-104) Total Protein 6.3 g/dL (6.6-8.7) L Albumin 2.5 g/dL (3.5-5.2) L Globulin 3.8 g/dL Albumin/Globulin Ratio 0.6 (1.0-2.7) L Current Medications Medications (Trade) Dose Ordered Sig/Trip Route PRN Reason Start Time Stop Time Status Last Admin Dose Admin Acetaminophen (Tylenol) 650 mg Q4H PRN NG Prn Headache/Temp > 101 07/10/16 00:45 08/09/16 00:44 Aspirin (ASA) 81 mg DAILY ORAL 07/10/16 09:00 08/09/16 08:59 Atorvastatin Calcium (Lipitor) 20 mg BEDTIME ORAL 07/10/16 21:00 08/09/16 20:59 07/11/16 21:26 Levothyroxine Sodium (Synthroid) 125 mcg ACBREAKFAST ORAL 07/10/16 06:30 08/09/16 06:29 07/12/16 07:03 Lisinopril (Zestril) 10 mg DAILY NG 07/10/16 09:00 08/09/16 08:59 Multivitamins (Multivitamin Hexavitamin) 5 ml DAILY GT 07/10/16 09:00 08/09/16 08:59 07/12/16 11:40 Pantoprazole (Protonix) 40 mg DAILY IVP 07/10/16 09:00 08/09/16 08:59 07/12/16 11:41 Potassium Chloride/Sodium Chloride (KCl/Sodium Chloride 1000ml bag) 1,020 ml @ 30 mls/hr Q24H IV 07/11/16 19:30 08/10/16 19:29 07/11/16 21:26 Vitamin D 1 intlu 1 intlu DAILY ORAL 07/10/16 09:00 08/09/16 08:59 07/12/16 11:40 JAMEEL TRIPATHI Jul 12, 2016 12:06
[2016-07-12 16:00] VITALS: BP 114/71
--- NOTE | 2016-07-12 16:51 | General Progress Note ---
Assessment/Plan Assessment/Plan Assessment - hyponatremia - OBS - Respiratory failure - UTI - Mild Leukocytosis - malnutrition - EGD shows large HH - NGT placed under direct vision in gastric cavity-but tip still in lower chest - Much of stomach appears to be in the chest - unable to identify clear landmarks for endoscopic PEG placement - Need surgical GT placement Recommendation - OK to continue TF - monitor Na level - Free water restriction - NPO via oral route - Await surgical opinion re GT placement Subjective Allergies: Coded Allergies: No Known Allergies (Unverified , 04/18/12) Subjective NAD sitter at bedside no events overnight await surgery Objective Last 24 Hour Vital Signs Date Time Temp Pulse Resp B/P Pulse Ox O2 Delivery O2 Flow Rate FiO2 07/12/16 16:00 98.2 116 20 114/71 97 Nasal Cannula 07/12/16 12:03 97.3 101 101/68 07/12/16 11:46 101/68 07/12/16 07:52 98.0 107 20 134/76 97 Nasal Cannula 07/12/16 04:00 98.2 100 20 107/62 97 Room Air 07/11/16 23:40 97.7 98 20 114/66 96 Room Air 07/11/16 20:00 97.3 113 18 101/70 97 Nasal Cannula 2.0 Intake and Output 07/11/16 07/12/16 19:00 07:00 Intake Total 520 ml 705 ml Output Total 200 ml 400 ml Balance 320 ml 305 ml Free Water 30 ml 80 ml IV Total 210 ml 240 ml Tube Feeding 280 ml 385 ml Output Urine Total 200 ml 400 ml # Bowel Movements 1 Laboratory Tests 07/12/16 09:00: White Blood Count 11.2H, Red Blood Count 3.30L, Hemoglobin 9.9L, Hematocrit 29.7L, Mean Corpuscular Volume 90, Mean Corpuscular Hemoglobin 29.9, Mean Corpuscular Hemoglobin Concent 33.2, Red Cell Distribution Width 14.4, Platelet Count 325, Mean Platelet Volume 7.5, Neutrophils (%) (Auto) 63.7, Lymphocytes (% ) (Auto) 22.7, Monocytes (%) (Auto) 7.2, Eosinophils (%) (Auto) 5.9H, Basophils (%) (Auto) 0.5, Prothrombin Time 13.5H, Prothromb Time International Ratio 1.3H , Activated Partial Thromboplast Time 32, Sodium Level 147H, Potassium Level 3.6 , Chloride Level 112H, Carbon Dioxide Level 18L, Anion Gap 17H, Blood Urea Nitrogen 7, Creatinine 0.9, Estimat Glomerular Filtration Rate , Glucose Level 158H, Calcium Level 8.3L, Total Bilirubin 0.3, Aspartate Amino Transf (AST/SGOT ) 16, Alanine Aminotransferase (ALT/SGPT) 9, Alkaline Phosphatase 97, Total Protein 6.3L, Albumin 2.5L, Globulin 3.8, Albumin/Globulin Ratio 0.6L Height (Feet): 5 Height (Inches): 2.99 Weight (Pounds): 102 Objective Thin WW NCAT, (+) NGT supple CTA RRR Soft Flat ND (+) contractures (+) OBS KALEE SERRATO Jul 12, 2016 16:51
[2016-07-12 20:00] VITALS: BP 107/60
[2016-07-12] MEDS: Atorvastatin 20mg tab ORAL SCH (20:01)
[2016-07-12 23:48] VITALS: BP 101/57
[2016-07-13] MEDS: Metoprolol Tartrate 12.5mg TAB NG SCH ×3 (03:45→20:47)
[2016-07-13 04:00] VITALS: BP 109/57
--- NOTE | 2016-07-13 04:37 | Progress Note ---
DATE: 07/12/2016 CARDIOLOGY PROGRESS NOTE SUBJECTIVE: The patient is withdrawn and continues to have NG tube for nutrition. She is scheduled for surgical G-tube tomorrow. She has a hiatal hernia and was not able to receive her G-tube endoscopically. OBJECTIVE: VITAL SIGNS: Blood pressure 134/76, pulse 107, respirations 20, and afebrile. LUNGS: Bilateral breath sounds. CARDIAC: Regular rhythm and rate. Normal S1 and S2 with a fourth heart sound. ABDOMEN: Soft. EXTREMITIES: Trace edema. LABORATORY DATA: White count 11.2 and hemoglobin 9.9. Sodium 147, potassium 3.6, bicarbonate 18, BUN 7, and creatinine 0.9. Albumin is 2.5. IMPRESSION: 1. Dysphagia. 2. Severe protein-calorie malnutrition. 3. Dehydration. 4. Hypernatremia. 5. Metabolic acidosis. 6. Hypokalemia. 7. Ischemic cardiomyopathy. 8. Urinary tract infection with recovered sepsis and shock secondary to sinus tachycardia. PLAN: 1. Add beta-crystal. 2. Continue hypotonic IV fluids. 3. Antibiotics. 4. DVT prophylaxis. 5. Respiratory hygiene. 6. Mildly increased perioperative cardiovascular risk for surgical G-tube. 7. Reevaluate laboratory studies prior to surgery. Yohan Corbett M.D. DR: AMMY JOB#: [id number] CC:
[2016-07-13 05:25] LABS: BASOPHILS % (AUTO) 0.6 % (0.0-2.0); EOSINOPHILS % (AUTO) 4.5 % (0.0-3.0); MEAN CORPUSCULAR HEMOGLOBIN 30.1 PG (27.0-31.0); MEAN CORPUSCULAR HGB CONC 33.4 G/DL (32.0-36.0); MEAN CORPUSCULAR VOLUME 90 FL (80-99); MONOCYTES % (AUTO) 9.2 % (1.0-10.0); NEUTROPHILS % (AUTO) 57.6 % (45.0-75.0); PLATELET COUNT 307 K/UL (150-450); RED BLOOD COUNT 3.13 M/UL (4.20-5.40); RED CELL DISTRIBUTION WIDTH 14.8 % (11.6-14.8); WHITE BLOOD COUNT 10.1 K/UL (4.8-10.8)
[2016-07-13] MEDS: Levothyroxine 125mcg tab ORAL SCH (05:45)
[2016-07-13 05:47] LABS: INR 1.2 (0.9-1.1); PROTHROMBIN TIME 12.3 SEC (9.30-11.50)
[2016-07-13 05:58] LABS: ANION GAP 14 (5-15); CARBON DIOXIDE 22 mEQ/L (20-30); CHLORIDE 114 mEQ/L (98-107); CREATININE 0.8 mg/dL (0.5-0.9); HEMOLYSIS 5; SODIUM 150 mEQ/L (135-145)
[2016-07-13 07:03] LABS: MAGNESIUM 1.5 mg/dL (1.7-2.5)
--- NOTE | 2016-07-13 08:09 | General Progress Note ---
Assessment/Plan Problem List: (1) Hypothyroid ICD Codes: E03.9 - Hypothyroid SNOMED: 35487619 (2) Septic shock ICD Codes: A41.9 - Sepsis, unspecified organism; R65.21 - Severe sepsis with septic shock SNOMED: 44324254 (3) Acute renal failure ICD Codes: N17.9 - Acute kidney failure, unspecified SNOMED: 01176701 Qualifiers: Qualified Codes: N17.0 - Acute kidney failure with tubular necrosis (4) Sepsis ICD Codes: A41.9 - Sepsis, unspecified organism SNOMED: 51833525 (5) Altered mental status ICD Codes: R41.82 - Altered mental status, unspecified SNOMED: 464612728 Qualifiers: Qualified Codes: R41.0 - Disorientation, unspecified (6) Acute delirium ICD Codes: R41.0 - Acute delirium SNOMED: 1732565 (7) UTI (lower urinary tract infection) ICD Codes: N39.0 - UTI (lower urinary tract infection) SNOMED: 2257936 Status: stable Assessment/Plan ivf adjusted ngt for meds. abx per ID replace lytes surgery input appreciated. surgical gt tomorrow by d/w family Subjective ROS Limited/Unobtainable: Yes Constitutional: Reports: malaise, weakness HEENT: Reports: no symptoms Cardiovascular: Reports: no symptoms Respiratory: Reports: no symptoms Gastrointestinal/Abdominal: Reports: difficulty swallowing Genitourinary: Reports: no symptoms Neurologic/Psychiatric: Reports: no symptoms Endocrine: Reports: no symptoms Hematologic/Lymphatic: Reports: no symptoms Allergies: Coded Allergies: No Known Allergies (Unverified , 04/18/12) All Systems: reviewed and negative except above Subjective no change. too lethargic to eat. Pt tentatively scheduled for surgical GT today. ivf adjusted. low mg noted Objective Last 24 Hour Vital Signs Date Time Temp Pulse Resp B/P Pulse Ox O2 Delivery O2 Flow Rate FiO2 07/13/16 04:00 98.2 101 20 109/57 97 Nasal Cannula 2.0 07/13/16 03:45 101 109/57 07/12/16 23:48 97.9 103 20 101/57 96 Room Air 07/12/16 20:00 97.9 99 18 107/60 96 Nasal Cannula 07/12/16 16:00 98.2 116 20 114/71 97 Nasal Cannula 07/12/16 12:03 97.3 101 101/68 07/12/16 11:46 68 Intake and Output 07/12/16 07/13/16 19:00 07:00 Intake Total 800 ml 790 ml Output Total 250 ml 350 ml Balance 550 ml 440 ml Free Water 20 ml 80 ml IV Total 360 ml 360 ml Tube Feeding 420 ml 350 ml Output Urine Total 250 ml 350 ml # Bowel Movements 3 Laboratory Tests 07/12/16 09:00: White Blood Count 11.2H, Red Blood Count 3.30L, Hemoglobin 9.9L, Hematocrit 29.7L, Mean Corpuscular Volume 90, Mean Corpuscular Hemoglobin 29.9, Mean Corpuscular Hemoglobin Concent 33.2, Red Cell Distribution Width 14.4, Platelet Count 325, Mean Platelet Volume 7.5, Neutrophils (%) (Auto) 63.7, Lymphocytes (% ) (Auto) 22.7, Monocytes (%) (Auto) 7.2, Eosinophils (%) (Auto) 5.9H, Basophils (%) (Auto) 0.5, Prothrombin Time 13.5H, Prothromb Time International Ratio 1.3H , Activated Partial Thromboplast Time 32, Sodium Level 147H, Potassium Level 3.6 , Chloride Level 112H, Carbon Dioxide Level 18L, Anion Gap 17H, Blood Urea Nitrogen 7, Creatinine 0.9, Estimat Glomerular Filtration Rate , Glucose Level 158H, Calcium Level 8.3L, Total Bilirubin 0.3, Aspartate Amino Transf (AST/SGOT ) 16, Alanine Aminotransferase (ALT/SGPT) 9, Alkaline Phosphatase 97, Total Protein 6.3L, Albumin 2.5L, Globulin 3.8, Albumin/Globulin Ratio 0.6L 07/13/16 05:00: White Blood Count 10.1, Red Blood Count 3.13L, Hemoglobin 9.4L, Hematocrit 28.2L , Mean Corpuscular Volume 90, Mean Corpuscular Hemoglobin 30.1, Mean Corpuscular Hemoglobin Concent 33.4, Red Cell Distribution Width 14.8, Platelet Count 307, Mean Platelet Volume 8.0, Neutrophils (%) (Auto) 57.6, Lymphocytes (% ) (Auto) 28.0, Monocytes (%) (Auto) 9.2, Eosinophils (%) (Auto) 4.5H, Basophils (%) (Auto) 0.6, Prothrombin Time 12.3H, Prothromb Time International Ratio 1.2H , Activated Partial Thromboplast Time 29, Sodium Level 150H, Potassium Level 4.0 , Chloride Level 114H, Carbon Dioxide Level 22, Anion Gap 14, Blood Urea Nitrogen 10, Creatinine 0.8, Estimat Glomerular Filtration Rate , Glucose Level 118H, Calcium Level 8.0L, Magnesium Level 1.5L, Pro-B-Type Natriuretic Peptide 2694H Height (Feet): 5 Height (Inches): 2.99 Weight (Pounds): 102 Objective General Appearance: WD/WN, lethargic, confused Neck: supple Cardiovascular: normal rate, regular rhythm Respiratory/Chest: lungs clear, normal breath sounds, no respiratory distress, no accessory muscle use Abdomen: normal bowel sounds, non tender, soft, no organomegaly Edema: no edema noted Arm (L), no edema noted Arm (R), no edema noted Leg (L), no edema noted Leg (R), no edema noted Pedal (L), no edema noted Pedal (R), no edema noted Generalized Neurologic: disoriented Skin: normal pigmentation, warm/dry HA FRANCIS Jul 13, 2016 08:09
[2016-07-13 08:15] VITALS: BP 121/67
--- NOTE | 2016-07-13 08:49 | Critical Care Progress Note ---
Assessment/Plan Assessment/Plan IMPRESSION: Respiratory failure, mostly due to metabolic acidosis (improved), presumed sepsis, shock, hypothermia, hypotension, history of dementia, history congestive heart failure, history of coronary artery disease, history of hypertension, possible acute on chronic renal failure, significant lactic acidemia, protein-calorie malnutrition, and profound leukocytosis. PLAN pulmonary care noted and reviewed exam without real change care reviewed in detail no distress at present all noted and reviewed dc planning noted and awaiting placement optimize and advance care as able will follow up for further changes monitor for aspiration medications/laboratory data/nursing notes reviewed in detail note reviewed and edited care discussed with RN and RT Critical Care - Subjective ROS Limited/Unobtainable: Yes Condition: unchanged EKG Rhythm: Sinus Rhythm I&O: Intake and Output 07/12/16 07/13/16 19:00 07:00 Intake Total 800 ml 790 ml Output Total 250 ml 350 ml Balance 550 ml 440 ml Free Water 20 ml 80 ml IV Total 360 ml 360 ml Tube Feeding 420 ml 350 ml Output Urine Total 250 ml 350 ml # Bowel Movements 3 Critical Care - Objective ET-Tube: 8.0 ET Position: 24 Last 24 Hour Vital Signs Date Time Temp Pulse Resp B/P Pulse Ox O2 Delivery O2 Flow Rate FiO2 07/13/16 08:15 98.6 111 20 121/67 95 Nasal Cannula 2.0 07/13/16 04:00 98.2 101 20 109/57 97 Nasal Cannula 2.0 07/13/16 03:45 101 109/57 07/12/16 23:48 97.9 103 20 101/57 96 Room Air 07/12/16 20:00 97.9 99 18 107/60 96 Nasal Cannula 07/12/16 16:00 98.2 116 20 114/71 97 Nasal Cannula 07/12/16 12:03 97.3 101 101/68 07/12/16 11:46 101/68 Labs: Labs Test 07/12/16 09:00 07/13/16 05:00 White Blood Count 11.2 K/UL (4.8-10.8) 10.1 K/UL (4.8-10.8) Red Blood Count 3.30 M/UL (4.20-5.40) 3.13 M/UL (4.20-5.40) Hemoglobin 9.9 G/DL (12.0-16.0) 9.4 G/DL (12.0-16.0) Hematocrit 29.7 % (37.0-47.0) 28.2 % (37.0-47.0) Mean Corpuscular Volume 90 FL (80-99) 90 FL (80-99) Mean Corpuscular Hemoglobin 29.9 PG (27.0-31.0) 30.1 PG (27.0-31.0) Mean Corpuscular Hemoglobin Concent 33.2 G/DL (32.0-36.0) 33.4 G/DL (32.0-36.0) Red Cell Distribution Width 14.4 % (11.6-14.8) 14.8 % (11.6-14.8) Platelet Count 325 K/UL (150-450) 307 K/UL (150-450) Mean Platelet Volume 7.5 FL (6.5-10.1) 8.0 FL (6.5-10.1) Neutrophils (%) (Auto) 63.7 % (45.0-75.0) 57.6 % (45.0-75.0) Lymphocytes (%) (Auto) 22.7 % (20.0-45.0) 28.0 % (20.0-45.0) Monocytes (%) (Auto) 7.2 % (1.0-10.0) 9.2 % (1.0-10.0) Eosinophils (%) (Auto) 5.9 % (0.0-3.0) 4.5 % (0.0-3.0) Basophils (%) (Auto) 0.5 % (0.0-2.0) 0.6 % (0.0-2.0) Prothrombin Time 13.5 SEC (9.30-11.50) 12.3 SEC (9.30-11.50) Prothromb Time International Ratio 1.3 (0.9-1.1) 1.2 (0.9-1.1) Activated Partial Thromboplast Time 32 SEC (23-33) 29 SEC (23-33) Sodium Level 147 mEQ/L (135-145) 150 mEQ/L (135-145) Potassium Level 3.6 mEQ/L (3.4-4.9) 4.0 mEQ/L (3.4-4.9) Chloride Level 112 mEQ/L (98-107) 114 mEQ/L (98-107) Carbon Dioxide Level 18 mEQ/L (20-30) 22 mEQ/L (20-30) Anion Gap 17 (5-15) 14 (5-15) Blood Urea Nitrogen 7 mg/dL (7-23) 10 mg/dL (7-23) Creatinine 0.9 mg/dL (0.5-0.9) 0.8 mg/dL (0.5-0.9) Estimat Glomerular Filtration Rate mL/min (>60) mL/min (>60) Glucose Level 158 mg/dL (74-106) 118 mg/dL (74-106) Calcium Level 8.3 mg/dL (8.6-10.2) 8.0 mg/dL (8.6-10.2) Total Bilirubin 0.3 mg/dL (0.0-1.2) Aspartate Amino Transf (AST/SGOT) 16 U/L (5-40) Alanine Aminotransferase (ALT/SGPT) 9 U/L (3-33) Alkaline Phosphatase 97 U/L (35-104) Total Protein 6.3 g/dL (6.6-8.7) Albumin 2.5 g/dL (3.5-5.2) Globulin 3.8 g/dL Albumin/Globulin Ratio 0.6 (1.0-2.7) Magnesium Level 1.5 mg/dL (1.7-2.5) Pro-B-Type Natriuretic Peptide 2694 pg/mL (0-450) Objective: GENERAL: A well-developed female, NAD HEENT: Fairly negative. NAD NECK: Supple. No jugular venous distention. LUNGS: stable breath sounds without rhonchi; Moderate air entry. without wheeze CARDIAC: S1 and S2. RRR without murmurs, rubs, or gallops. ABDOMEN: Soft, nontender, and nondistended. no HSM EXTREMITIES: No cyanosis or clubbing. No edema. NEUROLOGICAL: Grossly nonfocal. contracted and withdrawn reviewed and edited MARCELO BIRMINGHAM Jul 13, 2016 08:49
[2016-07-13] MEDS: Multivitamin 5ml Liquid GT SCH (08:59)
[2016-07-13] MEDS: Lisinopril 10mg tab NG SCH (09:00)
[2016-07-13] MEDS: Vitamin D 1000 IU Tab ORAL SCH (09:00)
[2016-07-13] MEDS: Aspirin Baby 81mg ORAL SCH (09:00)
[2016-07-13] MEDS: Pantoprazole Inj IVP SCH (09:17)
--- NOTE | 2016-07-13 11:25 | Infectious Diseases Prog Note ---
Assessment/Plan Assessment/Plan antibiotics : none A 1. klebsiella UTI s/p rx 2. shock resolved 3. respiratory failure resolved 4. renal failure improving 5. leucocytosis improving P 1. continue off antibiotics 2. GT planned Subjective ROS Limited/Unobtainable: Yes Allergies: Coded Allergies: No Known Allergies (Unverified , 04/18/12) Objective Vital Signs Last 24 Hour Vital Signs Date Time Temp Pulse Resp B/P Pulse Ox O2 Delivery O2 Flow Rate FiO2 07/13/16 09:12 98.8 07/13/16 08:15 98.6 111 20 121/67 95 Nasal Cannula 2.0 07/13/16 04:00 98.2 101 20 109/57 97 Nasal Cannula 2.0 07/13/16 03:45 101 109/57 07/12/16 23:48 97.9 103 20 101/57 96 Room Air 07/12/16 20:00 97.9 99 18 107/60 96 Nasal Cannula 07/12/16 16:00 98.2 116 20 114/71 97 Nasal Cannula 07/12/16 12:03 97.3 101 101/68 07/12/16 11:46 101/68 Height (Feet): 5 Height (Inches): 2.99 Weight (Pounds): 102 Respiratory/Chest: lungs clear Cardiovascular: normal rate, regular rhythm, no gallop/murmur Abdomen: soft, non tender Extremities: no edema Laboratory Tests Test 07/13/16 05:00 White Blood Count 10.1 K/UL (4.8-10.8) Red Blood Count 3.13 M/UL (4.20-5.40) L Hemoglobin 9.4 G/DL (12.0-16.0) L Hematocrit 28.2 % (37.0-47.0) L Mean Corpuscular Volume 90 FL (80-99) Mean Corpuscular Hemoglobin 30.1 PG (27.0-31.0) Mean Corpuscular Hemoglobin Concent 33.4 G/DL (32.0-36.0) Red Cell Distribution Width 14.8 % (11.6-14.8) Platelet Count 307 K/UL (150-450) Mean Platelet Volume 8.0 FL (6.5-10.1) Neutrophils (%) (Auto) 57.6 % (45.0-75.0) Lymphocytes (%) (Auto) 28.0 % (20.0-45.0) Monocytes (%) (Auto) 9.2 % (1.0-10.0) Eosinophils (%) (Auto) 4.5 % (0.0-3.0) H Basophils (%) (Auto) 0.6 % (0.0-2.0) Prothrombin Time 12.3 SEC (9.30-11.50) H Prothromb Time International Ratio 1.2 (0.9-1.1) H Activated Partial Thromboplast Time 29 SEC (23-33) Sodium Level 150 mEQ/L (135-145) H Potassium Level 4.0 mEQ/L (3.4-4.9) Chloride Level 114 mEQ/L (98-107) H Carbon Dioxide Level 22 mEQ/L (20-30) Anion Gap 14 (5-15) Blood Urea Nitrogen 10 mg/dL (7-23) Creatinine 0.8 mg/dL (0.5-0.9) Estimat Glomerular Filtration Rate mL/min (>60) Glucose Level 118 mg/dL (74-106) H Calcium Level 8.0 mg/dL (8.6-10.2) L Magnesium Level 1.5 mg/dL (1.7-2.5) L Pro-B-Type Natriuretic Peptide 2694 pg/mL (0-450) H DAMIAN GUZMAN Jul 13, 2016 11:25
[2016-07-13 11:42] VITALS: BP 95/54
--- NOTE | 2016-07-13 11:56 | General Progress Note ---
Assessment/Plan Assessment/Plan Assessment - hyponatremia - OBS - Respiratory failure - UTI - Mild Leukocytosis - malnutrition - EGD shows large HH - NGT placed under direct vision in gastric cavity-but tip still in lower chest - Much of stomach appears to be in the chest - unable to identify clear landmarks for endoscopic PEG placement - Need surgical GT placement Recommendation - OK to continue TF - monitor Na level - Free water restriction - NPO via oral route - Await surgery Subjective Allergies: Coded Allergies: No Known Allergies (Unverified , 04/18/12) Subjective NAD sitter at bedside no events overnight await surgery NPO Objective Last 24 Hour Vital Signs Date Time Temp Pulse Resp B/P Pulse Ox O2 Delivery O2 Flow Rate FiO2 07/13/16 11:42 100.9 103 20 95/54 95 Nasal Cannula 2.0 07/13/16 09:12 98.8 07/13/16 08:15 98.6 111 20 121/67 95 Nasal Cannula 2.0 07/13/16 04:00 98.2 101 20 109/57 97 Nasal Cannula 2.0 07/13/16 03:45 101 109/57 07/12/16 23:48 97.9 103 20 101/57 96 Room Air 07/12/16 20:00 97.9 99 18 107/60 96 Nasal Cannula 07/12/16 16:00 98.2 116 20 114/71 97 Nasal Cannula 07/12/16 12:03 97.3 101 101/68 Intake and Output 07/12/16 07/13/16 19:00 07:00 Intake Total 800 ml 790 ml Output Total 250 ml 350 ml Balance 550 ml 440 ml Free Water 20 ml 80 ml IV Total 360 ml 360 ml Tube Feeding 420 ml 350 ml Output Urine Total 250 ml 350 ml # Bowel Movements 3 Laboratory Tests 07/13/16 05:00: White Blood Count 10.1, Red Blood Count 3.13L, Hemoglobin 9.4L, Hematocrit 28.2L , Mean Corpuscular Volume 90, Mean Corpuscular Hemoglobin 30.1, Mean Corpuscular Hemoglobin Concent 33.4, Red Cell Distribution Width 14.8, Platelet Count 307, Mean Platelet Volume 8.0, Neutrophils (%) (Auto) 57.6, Lymphocytes (% ) (Auto) 28.0, Monocytes (%) (Auto) 9.2, Eosinophils (%) (Auto) 4.5H, Basophils (%) (Auto) 0.6, Prothrombin Time 12.3H, Prothromb Time International Ratio 1.2H , Activated Partial Thromboplast Time 29, Sodium Level 150H, Potassium Level 4.0 , Chloride Level 114H, Carbon Dioxide Level 22, Anion Gap 14, Blood Urea Nitrogen 10, Creatinine 0.8, Estimat Glomerular Filtration Rate , Glucose Level 118H, Calcium Level 8.0L, Magnesium Level 1.5L, Pro-B-Type Natriuretic Peptide 2694H Height (Feet): 5 Height (Inches): 2.99 Weight (Pounds): 102 Objective Thin WW NCAT, (+) NGT supple CTA RRR Soft Flat ND (+) contractures (+) OBS KALEE SERRATO Jul 13, 2016 11:56
[2016-07-13] MEDS ORDERED: Acetaminophen 650 MG SUPP RECTAL ONE (13:00)
--- NOTE | 2016-07-13 15:36 | Nephrology Progress Note ---
Assessment/Plan Problem List: (1) Pyelonephritis (2) Acute hypernatremia (3) Dehydration (4) Sepsis (5) MARCELLE (acute kidney injury) (6) Septic shock (7) Respiratory alkalosis (8) Hyponatremia (9) Hypokalemia Plan still needs iv rehydration, lab trend better, Na higher continuing rx klebsiella uti low K replete, npo now Subjective ROS Limited/Unobtainable: Yes Objective Objective Last 24 Hour Vital Signs Date Time Temp Pulse Resp B/P Pulse Ox O2 Delivery O2 Flow Rate FiO2 07/13/16 12:50 101.0 07/13/16 11:42 100.9 103 20 95/54 95 Nasal Cannula 2.0 07/13/16 09:12 98.8 07/13/16 08:15 98.6 111 20 121/67 95 Nasal Cannula 2.0 07/13/16 04:00 98.2 101 20 109/57 97 Nasal Cannula 2.0 07/13/16 03:45 101 109/57 07/12/16 23:48 97.9 103 20 101/57 96 Room Air 07/12/16 20:00 97.9 99 18 107/60 96 Nasal Cannula 07/12/16 16:00 98.2 116 20 114/71 97 Nasal Cannula Intake and Output 07/12/16 07/13/16 19:00 07:00 Intake Total 800 ml 790 ml Output Total 250 ml 350 ml Balance 550 ml 440 ml Free Water 20 ml 80 ml IV Total 360 ml 360 ml Tube Feeding 420 ml 350 ml Output Urine Total 250 ml 350 ml # Bowel Movements 3 Laboratory Tests 07/13/16 05:00: White Blood Count 10.1, Red Blood Count 3.13L, Hemoglobin 9.4L, Hematocrit 28.2L , Mean Corpuscular Volume 90, Mean Corpuscular Hemoglobin 30.1, Mean Corpuscular Hemoglobin Concent 33.4, Red Cell Distribution Width 14.8, Platelet Count 307, Mean Platelet Volume 8.0, Neutrophils (%) (Auto) 57.6, Lymphocytes (% ) (Auto) 28.0, Monocytes (%) (Auto) 9.2, Eosinophils (%) (Auto) 4.5H, Basophils (%) (Auto) 0.6, Prothrombin Time 12.3H, Prothromb Time International Ratio 1.2H , Activated Partial Thromboplast Time 29, Sodium Level 150H, Potassium Level 4.0 , Chloride Level 114H, Carbon Dioxide Level 22, Anion Gap 14, Blood Urea Nitrogen 10, Creatinine 0.8, Estimat Glomerular Filtration Rate , Glucose Level 118H, Calcium Level 8.0L, Magnesium Level 1.5L, Pro-B-Type Natriuretic Peptide 2694H Height (Feet): 5 Height (Inches): 2.99 Weight (Pounds): 102 General Appearance: lethargic, confused EENT: normal ENT inspection Neck: supple Cardiovascular: regular rhythm Respiratory/Chest: lungs clear, normal breath sounds Abdomen: soft Extremities: other - contracted JILL GASPAR Jul 13, 2016 15:36
[2016-07-13 16:00] VITALS: BP 97/64
[2016-07-13 19:00] VITALS: BP 95/57
[2016-07-13] MEDS: Atorvastatin 20mg tab ORAL SCH (20:47)
[2016-07-14] VITALS (8 sets, daily range): BP systolic 71–121; BP diastolic 38–62
--- NOTE | 2016-07-14 04:08 | Progress Note ---
DATE: 07/13/2016 CARDIOLOGY PROGRESS NOTE: SUBJECTIVE: The patient remains on IV fluids. OBJECTIVE: VITAL SIGNS: Temperature 100.9 degrees, blood pressure 95/54, heart rate 103, and respiratory 20. Monitor sinus and sinus tachycardia. NECK: Supple. LUNGS: With diminished breath sounds. CARDIAC: Regular rhythm. Rapid rate. Normal S1, S2. ABDOMEN: Soft. EXTREMITIES: No edema. IMPRESSION: 1. Dysphagia. 2. Status post sepsis with shock. 3. Recovering urinary tract infection. 4. Hypothyroidism. 5. Cerebrovascular disease with dementia. 6. Severe hearing loss. 7. Ischemic cardiomyopathy. 8. Acute and chronic diastolic congestive heart failure. 9. Acute renal failure, recovered. 10. Dehydration and hypernatremia, resolved. PLAN: 1. Continue hydration. 2. G-tube tomorrow. 3. Optimize cardiovascular medications. 4. Beta-crystal by IV route if unable to provide through feeding tube. Yohan Corbett M.D. DR: Ignacio JOB#: [id number] CC:
[2016-07-14 06:29] LABS: BASOPHILS % (AUTO) 0.5 % (0.0-2.0); EOSINOPHILS % (AUTO) 4.4 % (0.0-3.0); LYMPHOCYTES % (AUTO) 13.6 % (20.0-45.0); MEAN CORPUSCULAR HEMOGLOBIN 30.3 PG (27.0-31.0); MEAN CORPUSCULAR HGB CONC 33.9 G/DL (32.0-36.0); MEAN CORPUSCULAR VOLUME 89 FL (80-99); MEAN PLATELET VOLUME 7.9 FL (6.5-10.1); MONOCYTES % (AUTO) 5.5 % (1.0-10.0); NEUTROPHILS % (AUTO) 75.9 % (45.0-75.0); PLATELET COUNT 250 K/UL (150-450); RED BLOOD COUNT 3.03 M/UL (4.20-5.40); RED CELL DISTRIBUTION WIDTH 14.9 % (11.6-14.8); WHITE BLOOD COUNT 10.4 K/UL (4.8-10.8)
[2016-07-14 06:37] LABS: ALANINE AMINOTRANSFERASE 7 U/L (3-33); ALBUMIN/GLOBULIN RATIO 0.5 (1.0-2.7); ANION GAP 11 (5-15); ASPARTATE AMINO TRANSFERASE 18 U/L (5-40); CALCIUM 7.8 mg/dL (8.6-10.2); CARBON DIOXIDE 22 mEQ/L (20-30); CHLORIDE 107 mEQ/L (98-107); CREATININE 0.7 mg/dL (0.5-0.9); HEMOLYSIS 2; SODIUM 140 mEQ/L (135-145)
[2016-07-14] MEDS: Levothyroxine 125mcg tab ORAL SCH (06:52)
[2016-07-14] MEDS: Aspirin Baby 81mg ORAL SCH (09:00)
--- NOTE | 2016-07-14 09:30 | General Progress Note ---
Assessment/Plan Problem List: (1) Hypothyroid ICD Codes: E03.9 - Hypothyroid SNOMED: 63189125 (2) Septic shock ICD Codes: A41.9 - Sepsis, unspecified organism; R65.21 - Severe sepsis with septic shock SNOMED: 54984626 (3) Acute renal failure ICD Codes: N17.9 - Acute kidney failure, unspecified SNOMED: 30755254 Qualifiers: Qualified Codes: N17.0 - Acute kidney failure with tubular necrosis (4) Sepsis ICD Codes: A41.9 - Sepsis, unspecified organism SNOMED: 44278604 (5) Altered mental status ICD Codes: R41.82 - Altered mental status, unspecified SNOMED: 454509873 Qualifiers: Qualified Codes: R41.0 - Disorientation, unspecified (6) Acute delirium ICD Codes: R41.0 - Acute delirium SNOMED: 5924243 (7) UTI (lower urinary tract infection) ICD Codes: N39.0 - UTI (lower urinary tract infection) SNOMED: 8406042 Status: stable, progressing Assessment/Plan garcia culture check cxr tylenol for fever ID follow up ivf abx ordered after cultures drawn Subjective ROS Limited/Unobtainable: Yes Constitutional: Reports: malaise, weakness HEENT: Reports: no symptoms Cardiovascular: Reports: no symptoms Respiratory: Reports: no symptoms Gastrointestinal/Abdominal: Reports: difficulty swallowing Genitourinary: Reports: no symptoms Neurologic/Psychiatric: Reports: pre-existing deficit Endocrine: Reports: no symptoms Hematologic/Lymphatic: Reports: anemia Allergies: Coded Allergies: No Known Allergies (Unverified , 04/18/12) All Systems: reviewed and negative except above Subjective surgery cancelled due to fever. continues to rikki fevers this am. no diarrhea or cough. off abx Objective Last 24 Hour Vital Signs Date Time Temp Pulse Resp B/P Pulse Ox O2 Delivery O2 Flow Rate FiO2 07/14/16 08:00 101.1 107 28 121/57 95 Nasal Cannula 2.0 07/14/16 03:54 99.5 117 20 98/62 97 Nasal Cannula 2.0 07/14/16 00:00 97.5 90 20 97/40 97 Nasal Cannula 2.0 07/13/16 20:47 83 95/57 07/13/16 19:00 97.2 83 16 95/57 96 Room Air 07/13/16 16:00 99.5 99 16 97/64 95 Room Air 07/13/16 12:50 101.0 07/13/16 11:42 100.9 103 20 95/54 95 Nasal Cannula 2.0 Intake and Output 07/13/16 07/14/16 19:00 07:00 Intake Total 480 ml 1080 ml Output Total 120 ml 250 ml Balance 360 ml 830 ml Free Water 40 ml IV Total 375 ml 900 ml Tube Feeding 105 ml 140 ml Output Urine Total 120 ml 250 ml Laboratory Tests 07/14/16 06:05: White Blood Count 10.4, Red Blood Count 3.03L, Hemoglobin 9.2L, Hematocrit 27.1L , Mean Corpuscular Volume 89, Mean Corpuscular Hemoglobin 30.3, Mean Corpuscular Hemoglobin Concent 33.9, Red Cell Distribution Width 14.9H, Platelet Count 250, Mean Platelet Volume 7.9, Neutrophils (%) (Auto) 75.9H, Lymphocytes (%) (Auto) 13.6L, Monocytes (%) (Auto) 5.5, Eosinophils (%) (Auto) 4.4H, Basophils (%) (Auto) 0.5, Sodium Level 140, Potassium Level 4.0, Chloride Level 107, Carbon Dioxide Level 22, Anion Gap 11, Blood Urea Nitrogen 14, Creatinine 0.7, Estimat Glomerular Filtration Rate , Glucose Level 111H, Calcium Level 7.8L, Magnesium Level 1.7, Total Bilirubin 0.3, Aspartate Amino Transf (AST/SGOT) 18, Alanine Aminotransferase (ALT/SGPT) 7, Alkaline Phosphatase 77, Total Protein 6.0L, Albumin 2.1L, Globulin 3.9, Albumin/ Globulin Ratio 0.5L Height (Feet): 5 Height (Inches): 2.99 Weight (Pounds): 102 Objective General Appearance: WD/WN, lethargic, confused Neck: supple Cardiovascular: normal rate, regular rhythm Respiratory/Chest: lungs clear, normal breath sounds, no respiratory distress, no accessory muscle use Abdomen: normal bowel sounds, non tender, soft, no organomegaly Edema: no edema noted Arm (L), no edema noted Arm (R), no edema noted Leg (L), no edema noted Leg (R), no edema noted Pedal (L), no edema noted Pedal (R), no edema noted Generalized Neurologic: disoriented Skin: normal pigmentation, warm/dry HA FRANCIS Jul 14, 2016 09:30
[2016-07-14] MEDS: Lisinopril 10mg tab NG SCH (09:39)
[2016-07-14] MEDS: Vitamin D 1000 IU Tab ORAL SCH (09:39)
[2016-07-14] MEDS: Multivitamin 5ml Liquid GT SCH (09:41)
[2016-07-14] MEDS: Acetaminophen 650mg/20.3ml NG PRN ×2 (09:41→21:15)
[2016-07-14] MEDS: Pantoprazole Inj IVP SCH (09:42)
[2016-07-14] MEDS: Metoprolol Tartrate 12.5mg TAB NG SCH ×2 (09:48→21:00)
--- NOTE | 2016-07-14 11:23 | Infectious Diseases Prog Note ---
Assessment/Plan Assessment/Plan antibiotics : vancomycin iv, zosyn A 1. klebsiella UTI s/p rx 2. shock resolved 3. respiratory failure resolved 4. renal failure improving 5. leucocytosis resolved 6. fever P 1. vancomycin iv, zosyn started 2. will follow up cultures Subjective ROS Limited/Unobtainable: Yes Allergies: Coded Allergies: No Known Allergies (Unverified , 04/18/12) Objective Vital Signs Last 24 Hour Vital Signs Date Time Temp Pulse Resp B/P Pulse Ox O2 Delivery O2 Flow Rate FiO2 07/14/16 10:11 101.5 07/14/16 09:48 107 121/57 07/14/16 09:39 121/57 07/14/16 08:00 101.1 107 28 121/57 95 Nasal Cannula 2.0 07/14/16 03:54 99.5 117 20 98/62 97 Nasal Cannula 2.0 07/14/16 00:00 97.5 90 20 97/40 97 Nasal Cannula 2.0 07/13/16 20:47 83 95/57 07/13/16 19:00 97.2 83 16 95/57 96 Room Air 07/13/16 16:00 99.5 99 16 97/64 95 Room Air 07/13/16 12:50 101.0 07/13/16 11:42 100.9 103 20 95/54 95 Nasal Cannula 2.0 Height (Feet): 5 Height (Inches): 2.99 Weight (Pounds): 102 Respiratory/Chest: lungs clear Cardiovascular: normal rate, regular rhythm, no gallop/murmur Abdomen: soft, non tender Extremities: no edema, other - right IJ catheter Laboratory Tests Test 07/14/16 06:05 White Blood Count 10.4 K/UL (4.8-10.8) Red Blood Count 3.03 M/UL (4.20-5.40) L Hemoglobin 9.2 G/DL (12.0-16.0) L Hematocrit 27.1 % (37.0-47.0) L Mean Corpuscular Volume 89 FL (80-99) Mean Corpuscular Hemoglobin 30.3 PG (27.0-31.0) Mean Corpuscular Hemoglobin Concent 33.9 G/DL (32.0-36.0) Red Cell Distribution Width 14.9 % (11.6-14.8) H Platelet Count 250 K/UL (150-450) Mean Platelet Volume 7.9 FL (6.5-10.1) Neutrophils (%) (Auto) 75.9 % (45.0-75.0) H Lymphocytes (%) (Auto) 13.6 % (20.0-45.0) L Monocytes (%) (Auto) 5.5 % (1.0-10.0) Eosinophils (%) (Auto) 4.4 % (0.0-3.0) H Basophils (%) (Auto) 0.5 % (0.0-2.0) Sodium Level 140 mEQ/L (135-145) Potassium Level 4.0 mEQ/L (3.4-4.9) Chloride Level 107 mEQ/L (98-107) Carbon Dioxide Level 22 mEQ/L (20-30) Anion Gap 11 (5-15) Blood Urea Nitrogen 14 mg/dL (7-23) Creatinine 0.7 mg/dL (0.5-0.9) Estimat Glomerular Filtration Rate mL/min (>60) Glucose Level 111 mg/dL (74-106) H Calcium Level 7.8 mg/dL (8.6-10.2) L Magnesium Level 1.7 mg/dL (1.7-2.5) Total Bilirubin 0.3 mg/dL (0.0-1.2) Aspartate Amino Transf (AST/SGOT) 18 U/L (5-40) Alanine Aminotransferase (ALT/SGPT) 7 U/L (3-33) Alkaline Phosphatase 77 U/L (35-104) Total Protein 6.0 g/dL (6.6-8.7) L Albumin 2.1 g/dL (3.5-5.2) L Globulin 3.9 g/dL Albumin/Globulin Ratio 0.5 (1.0-2.7) L DAMIAN GUZMAN Jul 14, 2016 11:23
[2016-07-14] MEDS ORDERED: Vancomycin 1gm/D5W 275ml IVPB ONE ×2 (12:30)
--- NOTE | 2016-07-14 12:44 | Diagnostic Imaging Report ---
Indication: Dyspnea Technique: One view of the chest Comparison: 06/29/2016 Findings: Nasogastric tube projects within a hiatal hernia. This was also demonstrated on recent abdominal radiography. There is some atelectasis at the left lateral lung base. The lungs and pleural spaces are otherwise clear. Heart size is normal. Aorta is tortuous and calcified. Right jugular central venous catheter remains. Impression: Acute process Left lateral basilar atelectasis Other findings as noted
[2016-07-14] MEDS: Piperacillin/Tazobactam 3.375 GM in D5W 110 ML IVPB SCH ×2 (14:53→21:10)
[2016-07-14] MEDS ORDERED: Tubing IV Secondary IV ONE (19:38)
--- NOTE | 2016-07-14 20:15 | Critical Care Progress Note ---
Assessment/Plan Assessment/Plan IMPRESSION: Respiratory failure, mostly due to metabolic acidosis (improved), presumed sepsis, shock, hypothermia, hypotension, history of dementia, history congestive heart failure, history of coronary artery disease, history of hypertension, possible acute on chronic renal failure, significant lactic acidemia, protein-calorie malnutrition, and profound leukocytosis-resolved; fevers PLAN pulmonary care noted and reviewed back on antibiotics chest xr negative exam noted and edited care reviewed in detail no distress at present awaiting placement optimize and advance care as able will follow up for further changes monitor for aspiration and recommend as needed medications/laboratory data/nursing notes reviewed in detail note reviewed and edited care discussed with RN and RT Critical Care - Subjective Interval Events: had fever started on antibiotics ROS Limited/Unobtainable: Yes EKG Rhythm: Sinus Rhythm I&O: Intake and Output 07/13/16 07/14/16 19:00 07:00 Intake Total 480 ml 1080 ml Output Total 120 ml 250 ml Balance 360 ml 830 ml Free Water 40 ml IV Total 375 ml 900 ml Tube Feeding 105 ml 140 ml Output Urine Total 120 ml 250 ml Critical Care - Objective ET-Tube: 8.0 ET Position: 24 Last 24 Hour Vital Signs Date Time Temp Pulse Resp B/P Pulse Ox O2 Delivery O2 Flow Rate FiO2 07/14/16 19:30 100.6 90 20 95/42 96 Nasal Cannula 2.0 07/14/16 16:00 97.3 68 18 110/62 94 Nasal Cannula 2.0 07/14/16 15:01 97.9 87 22 71/38 96 Nasal Cannula 2.0 07/14/16 12:00 101.5 90 26 105/56 94 Nasal Cannula 2.0 07/14/16 10:11 101.5 07/14/16 09:48 107 121/57 07/14/16 09:39 121/57 07/14/16 08:00 101.1 107 28 121/57 95 Nasal Cannula 2.0 07/14/16 03:54 99.5 117 20 98/62 97 Nasal Cannula 2.0 07/14/16 00:00 97.5 90 20 97/40 97 Nasal Cannula 2.0 07/13/16 20:47 83 95/57 Labs: Laboratory Tests Test 07/14/16 06:05 White Blood Count 10.4 K/UL (4.8-10.8) Red Blood Count 3.03 M/UL (4.20-5.40) L Hemoglobin 9.2 G/DL (12.0-16.0) L Hematocrit 27.1 % (37.0-47.0) L Mean Corpuscular Volume 89 FL (80-99) Mean Corpuscular Hemoglobin 30.3 PG (27.0-31.0) Mean Corpuscular Hemoglobin Concent 33.9 G/DL (32.0-36.0) Red Cell Distribution Width 14.9 % (11.6-14.8) H Platelet Count 250 K/UL (150-450) Mean Platelet Volume 7.9 FL (6.5-10.1) Neutrophils (%) (Auto) 75.9 % (45.0-75.0) H Lymphocytes (%) (Auto) 13.6 % (20.0-45.0) L Monocytes (%) (Auto) 5.5 % (1.0-10.0) Eosinophils (%) (Auto) 4.4 % (0.0-3.0) H Basophils (%) (Auto) 0.5 % (0.0-2.0) Sodium Level 140 mEQ/L (135-145) Potassium Level 4.0 mEQ/L (3.4-4.9) Chloride Level 107 mEQ/L (98-107) Carbon Dioxide Level 22 mEQ/L (20-30) Anion Gap 11 (5-15) Blood Urea Nitrogen 14 mg/dL (7-23) Creatinine 0.7 mg/dL (0.5-0.9) Estimat Glomerular Filtration Rate mL/min (>60) Glucose Level 111 mg/dL (74-106) H Calcium Level 7.8 mg/dL (8.6-10.2) L Magnesium Level 1.7 mg/dL (1.7-2.5) Total Bilirubin 0.3 mg/dL (0.0-1.2) Aspartate Amino Transf (AST/SGOT) 18 U/L (5-40) Alanine Aminotransferase (ALT/SGPT) 7 U/L (3-33) Alkaline Phosphatase 77 U/L (35-104) Total Protein 6.0 g/dL (6.6-8.7) L Albumin 2.1 g/dL (3.5-5.2) L Globulin 3.9 g/dL Albumin/Globulin Ratio 0.5 (1.0-2.7) L Objective: GENERAL: A well-developed female, NAD HEENT: Fairly negative. NAD NECK: Supple. No jugular venous distention. LUNGS: stable breath sounds without rhonchi; Moderate air entry. occasional rhonchi CARDIAC: S1 and S2. RRR without murmurs, rubs, or gallops. ABDOMEN: Soft, nontender, and nondistended. no HSM EXTREMITIES: No cyanosis or clubbing. No edema. NEUROLOGICAL: Grossly nonfocal. contracted and withdrawn reviewed and edited MARCELO BIRMINGHAM Jul 14, 2016 20:15
--- NOTE | 2016-07-14 20:51 | General Progress Note ---
Assessment/Plan Assessment/Plan Assessment - hyponatremia - OBS - Respiratory failure - UTI - Mild Leukocytosis - malnutrition - EGD shows large HH - NGT placed under direct vision in gastric cavity-but tip still in lower chest - Much of stomach appears to be in the chest - unable to identify clear landmarks for endoscopic PEG placement - Need surgical GT placement Recommendation - OK to continue TF - monitor Na level - Free water restriction - NPO via oral route - Await surgery Subjective Allergies: Coded Allergies: No Known Allergies (Unverified , 04/18/12) Subjective NAD sitter at bedside no events overnight await surgery NPO Objective Last 24 Hour Vital Signs Date Time Temp Pulse Resp B/P Pulse Ox O2 Delivery O2 Flow Rate FiO2 07/14/16 19:30 100.6 90 20 95/42 96 Nasal Cannula 2.0 07/14/16 16:00 97.3 68 18 110/62 94 Nasal Cannula 2.0 07/14/16 15:01 97.9 87 22 71/38 96 Nasal Cannula 2.0 07/14/16 12:00 101.5 90 26 105/56 94 Nasal Cannula 2.0 07/14/16 10:11 101.5 07/14/16 09:48 107 121/57 07/14/16 09:39 121/57 07/14/16 08:00 101.1 107 28 121/57 95 Nasal Cannula 2.0 07/14/16 03:54 99.5 117 20 98/62 97 Nasal Cannula 2.0 07/14/16 00:00 97.5 90 20 97/40 97 Nasal Cannula 2.0 Intake and Output 07/13/16 07/14/16 19:00 07:00 Intake Total 480 ml 1080 ml Output Total 120 ml 250 ml Balance 360 ml 830 ml Free Water 40 ml IV Total 375 ml 900 ml Tube Feeding 105 ml 140 ml Output Urine Total 120 ml 250 ml Laboratory Tests 07/14/16 06:05: White Blood Count 10.4, Red Blood Count 3.03L, Hemoglobin 9.2L, Hematocrit 27.1L , Mean Corpuscular Volume 89, Mean Corpuscular Hemoglobin 30.3, Mean Corpuscular Hemoglobin Concent 33.9, Red Cell Distribution Width 14.9H, Platelet Count 250, Mean Platelet Volume 7.9, Neutrophils (%) (Auto) 75.9H, Lymphocytes (%) (Auto) 13.6L, Monocytes (%) (Auto) 5.5, Eosinophils (%) (Auto) 4.4H, Basophils (%) (Auto) 0.5, Sodium Level 140, Potassium Level 4.0, Chloride Level 107, Carbon Dioxide Level 22, Anion Gap 11, Blood Urea Nitrogen 14, Creatinine 0.7, Estimat Glomerular Filtration Rate , Glucose Level 111H, Calcium Level 7.8L, Magnesium Level 1.7, Total Bilirubin 0.3, Aspartate Amino Transf (AST/SGOT) 18, Alanine Aminotransferase (ALT/SGPT) 7, Alkaline Phosphatase 77, Total Protein 6.0L, Albumin 2.1L, Globulin 3.9, Albumin/ Globulin Ratio 0.5L Height (Feet): 5 Height (Inches): 2.99 Weight (Pounds): 102 Objective Thin WW NCAT, (+) NGT supple CTA RRR Soft Flat ND (+) contractures (+) OBS KALEE SERRATO Jul 14, 2016 20:51
[2016-07-14] MEDS: Atorvastatin 20mg tab ORAL SCH (21:00)
[2016-07-15] VITALS (24 sets, daily range): BP systolic 57–153; BP diastolic 26–77
[2016-07-15] MEDS: Piperacillin/Tazobactam 3.375 GM in D5W 110 ML IVPB SCH ×3 (06:07→21:27)
[2016-07-15] MEDS: Levothyroxine 125mcg tab ORAL SCH (06:07)
[2016-07-15] MEDS ORDERED: Levophed 4mg/4mL Inj IV ONE (06:51)
[2016-07-15 07:06] LABS: MEAN CORPUSCULAR HEMOGLOBIN 31.3 PG (27.0-31.0); MEAN CORPUSCULAR HGB CONC 34.7 G/DL (32.0-36.0); MEAN CORPUSCULAR VOLUME 90 FL (80-99); MEAN PLATELET VOLUME 8.5 FL (6.5-10.1); PLATELET COUNT 188 K/UL (150-450); RED BLOOD COUNT 2.53 M/UL (4.20-5.40); RED CELL DISTRIBUTION WIDTH 15.2 % (11.6-14.8); WHITE BLOOD COUNT 10.2 K/UL (4.8-10.8)
[2016-07-15 07:19] LABS: ALANINE AMINOTRANSFERASE 7 U/L (3-33); ALBUMIN/GLOBULIN RATIO 0.5 (1.0-2.7); ANION GAP 11 (5-15); ASPARTATE AMINO TRANSFERASE 24 U/L (5-40); CALCIUM 6.8 mg/dL (8.6-10.2); CARBON DIOXIDE 19 mEQ/L (20-30); CHLORIDE 103 mEQ/L (98-107); CREATININE 1.1 mg/dL (0.5-0.9); HEMOLYSIS 12; POTASSIUM 3.5 mEQ/L (3.4-4.9); SODIUM 133 mEQ/L (135-145); TOTAL PROTEIN 4.9 g/dL (6.6-8.7)
[2016-07-15 07:23] LABS: INR 1.3 (0.9-1.1); PROTHROMBIN TIME 13.4 SEC (9.30-11.50)
--- NOTE | 2016-07-15 08:10 | General Progress Note ---
Assessment/Plan Problem List: (1) Hypothyroid ICD Codes: E03.9 - Hypothyroid SNOMED: 63866554 (2) Septic shock ICD Codes: A41.9 - Sepsis, unspecified organism; R65.21 - Severe sepsis with septic shock SNOMED: 40724078 (3) Acute renal failure ICD Codes: N17.9 - Acute kidney failure, unspecified SNOMED: 38926428 Qualifiers: Qualified Codes: N17.0 - Acute kidney failure with tubular necrosis (4) Sepsis ICD Codes: A41.9 - Sepsis, unspecified organism SNOMED: 49572176 (5) Altered mental status ICD Codes: R41.82 - Altered mental status, unspecified SNOMED: 522002931 Qualifiers: Qualified Codes: R41.0 - Disorientation, unspecified (6) Acute delirium ICD Codes: R41.0 - Acute delirium SNOMED: 8206447 (7) UTI (lower urinary tract infection) ICD Codes: N39.0 - UTI (lower urinary tract infection) SNOMED: 0440549 Status: stable, progressing Assessment/Plan garcia culture cxr- clear tylenol for fever ID follow up ivf transfuse iv abx per id proceed with gt later today if stable. Subjective ROS Limited/Unobtainable: Yes Constitutional: Reports: malaise, weakness HEENT: Reports: no symptoms Cardiovascular: Reports: no symptoms Respiratory: Reports: no symptoms Gastrointestinal/Abdominal: Reports: no symptoms Genitourinary: Reports: no symptoms Neurologic/Psychiatric: Reports: pre-existing deficit Endocrine: Reports: no symptoms Hematologic/Lymphatic: Reports: anemia Allergies: Coded Allergies: No Known Allergies (Unverified , 04/18/12) All Systems: reviewed and negative except above Subjective transferred to icu for hypotension. bp now better after several NS boluses. decrease h/h noted. no bleeding noted. lactic acid level ok. on iv abx Objective Last 24 Hour Vital Signs Date Time Temp Pulse Resp B/P Pulse Ox O2 Delivery O2 Flow Rate FiO2 07/15/16 07:00 88 18 98/42 100 Nasal Cannula 2.0 07/15/16 06:00 84 20 104/38 95 Nasal Cannula 2.0 07/15/16 05:00 82 20 85/36 95 Nasal Cannula 2.0 07/15/16 04:00 98.5 89 20 100/46 95 Nasal Cannula 2.0 07/15/16 04:00 86 07/15/16 03:30 102/37 07/15/16 03:00 84 20 87/36 95 Nasal Cannula 2.0 07/15/16 02:00 83 20 70/45 95 Nasal Cannula 2.0 07/15/16 01:15 76 07/15/16 01:15 98.5 82 20 80/38 95 Nasal Cannula 2.0 07/15/16 00:00 97.9 95 20 57/26 95 Nasal Cannula 2.0 07/14/16 21:45 99.7 07/14/16 21:00 101 80/44 07/14/16 19:30 100.6 90 20 95/42 96 Nasal Cannula 2.0 07/14/16 19:00 96.4 68 18 100/58 Nasal Cannula 2.0 07/14/16 16:00 97.3 68 18 110/62 94 Nasal Cannula 2.0 07/14/16 15:01 97.9 87 22 71/38 96 Nasal Cannula 2.0 07/14/16 12:00 101.5 90 26 105/56 94 Nasal Cannula 2.0 07/14/16 09:48 107 121/57 07/14/16 09:39 121/57 Intake and Output 07/14/16 07/15/16 19:00 07:00 Intake Total 525 ml 2475.5 ml Output Total 700 ml 510 ml Balance -175 ml 1965.5 ml IV Total 525 ml 2475.5 ml Output Urine Total 700 ml 510 ml Laboratory Tests 07/15/16 05:20: White Blood Count 10.2, Red Blood Count 2.53L, Hemoglobin 7.9L, Hematocrit 22.9L , Mean Corpuscular Volume 90, Mean Corpuscular Hemoglobin 31.3H, Mean Corpuscular Hemoglobin Concent 34.7, Red Cell Distribution Width 15.2H, Platelet Count 188, Mean Platelet Volume 8.5, Neutrophils (%) (Auto) , Lymphocytes (%) (Auto) , Monocytes (%) (Auto) , Eosinophils (%) (Auto) , Basophils (%) (Auto) , Neutrophils % (Manual) [Pending], Lymphocytes % (Manual) [Pending], Platelet Estimate [Pending], Platelet Morphology [Pending], Prothrombin Time 13.4H, Prothromb Time International Ratio 1.3H, Activated Partial Thromboplast Time 41H, Sodium Level 133L, Potassium Level 3.5, Chloride Level 103, Carbon Dioxide Level 19L, Anion Gap 11, Blood Urea Nitrogen 19, Creatinine 1.1#H, Estimat Glomerular Filtration Rate , Glucose Level 98, Lactic Acid Level 1.10, Calcium Level 6.8L, Total Bilirubin 0.3, Aspartate Amino Transf (AST/SGOT) 24, Alanine Aminotransferase (ALT/SGPT) 7, Alkaline Phosphatase 56, Total Protein 4.9L, Albumin 1.7L, Globulin 3.2, Albumin/ Globulin Ratio 0.5L Height (Feet): 5 Height (Inches): 2.00 Weight (Pounds): 102 Objective General Appearance: WD/WN, lethargic, confused Neck: supple Cardiovascular: normal rate, regular rhythm Respiratory/Chest: lungs clear, normal breath sounds, no respiratory distress, no accessory muscle use Abdomen: normal bowel sounds, non tender, soft, no organomegaly Edema: no edema noted Arm (L), no edema noted Arm (R), no edema noted Leg (L), no edema noted Leg (R), no edema noted Pedal (L), no edema noted Pedal (R), no edema noted Generalized Neurologic: disoriented Skin: normal pigmentation, warm/dry HA FRANCIS Jul 15, 2016 08:10
--- NOTE | 2016-07-15 08:13 | General Progress Note ---
Assessment/Plan Assessment/Plan Assessment - hypotension - progressive anemia - hyponatremia - OBS - malnutrition --> May need TPN if surgery postponed - EGD shows large HH - NGT placed under direct vision in gastric cavity-but tip still in lower chest - Much of stomach appears to be in the chest - unable to identify clear landmarks for endoscopic PEG placement - Need surgical GT placement Recommendation - Consider TPN - Defer to renal - transfuse 2 units - should help with BP - monitor Na level - Free water restriction - NPO via oral route - Await surgery Subjective Allergies: Coded Allergies: No Known Allergies (Unverified , 04/18/12) Subjective transferred to ICU for low BP pt non communicative discussed with DTR re low blood count DTR agreed with transfusion Objective Last 24 Hour Vital Signs Date Time Temp Pulse Resp B/P Pulse Ox O2 Delivery O2 Flow Rate FiO2 07/15/16 07:00 88 18 98/42 100 Nasal Cannula 2.0 07/15/16 06:00 84 20 104/38 95 Nasal Cannula 2.0 07/15/16 05:00 82 20 85/36 95 Nasal Cannula 2.0 07/15/16 04:00 98.5 89 20 100/46 95 Nasal Cannula 2.0 07/15/16 04:00 86 07/15/16 03:30 102/37 07/15/16 03:00 84 20 87/36 95 Nasal Cannula 2.0 07/15/16 02:00 83 20 70/45 95 Nasal Cannula 2.0 07/15/16 01:15 76 07/15/16 01:15 98.5 82 20 80/38 95 Nasal Cannula 2.0 07/15/16 00:00 97.9 95 20 57/26 95 Nasal Cannula 2.0 07/14/16 21:45 99.7 07/14/16 21:00 101 80/44 07/14/16 19:30 100.6 90 20 95/42 96 Nasal Cannula 2.0 07/14/16 19:00 96.4 68 18 100/58 Nasal Cannula 2.0 07/14/16 16:00 97.3 68 18 110/62 94 Nasal Cannula 2.0 07/14/16 15:01 97.9 87 22 71/38 96 Nasal Cannula 2.0 07/14/16 12:00 101.5 90 26 105/56 94 Nasal Cannula 2.0 07/14/16 09:48 107 121/57 07/14/16 09:39 121/57 Intake and Output 07/14/16 07/15/16 19:00 07:00 Intake Total 525 ml 2475.5 ml Output Total 700 ml 510 ml Balance -175 ml 1965.5 ml IV Total 525 ml 2475.5 ml Output Urine Total 700 ml 510 ml Laboratory Tests 07/15/16 05:20: White Blood Count 10.2, Red Blood Count 2.53L, Hemoglobin 7.9L, Hematocrit 22.9L , Mean Corpuscular Volume 90, Mean Corpuscular Hemoglobin 31.3H, Mean Corpuscular Hemoglobin Concent 34.7, Red Cell Distribution Width 15.2H, Platelet Count 188, Mean Platelet Volume 8.5, Neutrophils (%) (Auto) , Lymphocytes (%) (Auto) , Monocytes (%) (Auto) , Eosinophils (%) (Auto) , Basophils (%) (Auto) , Neutrophils % (Manual) [Pending], Lymphocytes % (Manual) [Pending], Platelet Estimate [Pending], Platelet Morphology [Pending], Prothrombin Time 13.4H, Prothromb Time International Ratio 1.3H, Activated Partial Thromboplast Time 41H, Sodium Level 133L, Potassium Level 3.5, Chloride Level 103, Carbon Dioxide Level 19L, Anion Gap 11, Blood Urea Nitrogen 19, Creatinine 1.1#H, Estimat Glomerular Filtration Rate , Glucose Level 98, Lactic Acid Level 1.10, Calcium Level 6.8L, Total Bilirubin 0.3, Aspartate Amino Transf (AST/SGOT) 24, Alanine Aminotransferase (ALT/SGPT) 7, Alkaline Phosphatase 56, Total Protein 4.9L, Albumin 1.7L, Globulin 3.2, Albumin/ Globulin Ratio 0.5L Height (Feet): 5 Height (Inches): 2.00 Weight (Pounds): 102 Objective Thin WW NCAT, (+) NGT supple CTA RRR Soft Flat ND (+) contractures (+) OBS KALEE SERRATO Jul 15, 2016 08:13
[2016-07-15 08:33] LABS: BAND NEUTROPHILS % (MANUAL) 0 % (0-8); BASOPHILS % (MANUAL) 0 % (0-2); EOSINOPHILS % (MANUAL) 5 % (0-3); LYMPHOCYTES % (MANUAL) 8 % (20-45); NEUTROPHILS % (MANUAL) 83 % (45-75); PLATELET ESTIMATE ADEQUATE; PLATELET MORPHOLOGY NORMAL; TOTAL CELLS COUNTED 100
[2016-07-15] MEDS: Multivitamin 5ml Liquid GT SCH (09:00)
[2016-07-15] MEDS: Metoprolol Tartrate 12.5mg TAB NG SCH ×2 (09:00→21:26)
[2016-07-15] MEDS: Vitamin D 1000 IU Tab ORAL SCH (09:00)
[2016-07-15] MEDS: Aspirin Baby 81mg ORAL SCH ×3 (09:00→09:39)
[2016-07-15] MEDS: Lisinopril 10mg tab NG SCH (09:00)
[2016-07-15] MEDS: Pantoprazole Inj IVP SCH (09:22)
--- NOTE | 2016-07-15 10:35 | Infectious Diseases Prog Note ---
Assessment/Plan Assessment/Plan A 1. Sepsis 3. Hypotension 4. Anemia 5. Dysphagia 6. leucocytosis resolved P 1. Continue Zosyn & Vancomycin 2. will f/u cultures Subjective ROS Limited/Unobtainable: Yes Constitutional: Reports: fever, other - yesterday Cardiovascular: Reports: other - transferred to ICU because of hypotension Allergies: Coded Allergies: No Known Allergies (Unverified , 04/18/12) Objective Vital Signs Last 24 Hour Vital Signs Date Time Temp Pulse Resp B/P Pulse Ox O2 Delivery O2 Flow Rate FiO2 07/15/16 10:00 81 17 91/44 100 Nasal Cannula 2.0 07/15/16 09:00 83 96/45 07/15/16 09:00 96/45 07/15/16 09:00 77 22 95/36 100 Nasal Cannula 2.0 07/15/16 08:00 99.0 83 20 96/45 100 Nasal Cannula 2.0 07/15/16 07:00 88 18 98/42 100 Nasal Cannula 2.0 07/15/16 06:00 84 20 104/38 95 Nasal Cannula 2.0 07/15/16 05:00 82 20 85/36 95 Nasal Cannula 2.0 07/15/16 04:00 98.5 89 20 100/46 95 Nasal Cannula 2.0 07/15/16 04:00 86 07/15/16 03:30 102/37 07/15/16 03:00 84 20 87/36 95 Nasal Cannula 2.0 07/15/16 02:00 83 20 70/45 95 Nasal Cannula 2.0 07/15/16 01:15 76 07/15/16 01:15 98.5 82 20 80/38 95 Nasal Cannula 2.0 07/15/16 00:00 97.9 95 20 57/26 95 Nasal Cannula 2.0 07/14/16 21:45 99.7 07/14/16 21:00 101 80/44 07/14/16 19:30 100.6 90 20 95/42 96 Nasal Cannula 2.0 07/14/16 19:00 96.4 68 18 100/58 Nasal Cannula 2.0 07/14/16 16:00 97.3 68 18 110/62 94 Nasal Cannula 2.0 07/14/16 15:01 97.9 87 22 71/38 96 Nasal Cannula 2.0 07/14/16 12:00 101.5 90 26 105/56 94 Nasal Cannula 2.0 Height (Feet): 5 Height (Inches): 2.00 Weight (Pounds): 102 HEENT: other - NG tube Respiratory/Chest: decreased breath sounds, other - O2 by cannula Cardiovascular: normal rate, other - RIJ line Extremities: no edema Neurologic/Psychiatric: unresponsiveness Laboratory Tests Test 07/15/16 05:20 White Blood Count 10.2 K/UL (4.8-10.8) Red Blood Count 2.53 M/UL (4.20-5.40) L Hemoglobin 7.9 G/DL (12.0-16.0) L Hematocrit 22.9 % (37.0-47.0) L Mean Corpuscular Volume 90 FL (80-99) Mean Corpuscular Hemoglobin 31.3 PG (27.0-31.0) H Mean Corpuscular Hemoglobin Concent 34.7 G/DL (32.0-36.0) Red Cell Distribution Width 15.2 % (11.6-14.8) H Platelet Count 188 K/UL (150-450) Mean Platelet Volume 8.5 FL (6.5-10.1) Neutrophils (%) (Auto) % (45.0-75.0) Lymphocytes (%) (Auto) % (20.0-45.0) Monocytes (%) (Auto) % (1.0-10.0) Eosinophils (%) (Auto) % (0.0-3.0) Basophils (%) (Auto) % (0.0-2.0) Differential Total Cells Counted 100 Neutrophils % (Manual) 83 % (45-75) H Lymphocytes % (Manual) 8 % (20-45) L Monocytes % (Manual) 4 % (1-10) Eosinophils % (Manual) 5 % (0-3) H Basophils % (Manual) 0 % (0-2) Band Neutrophils 0 % (0-8) Platelet Estimate Adequate Platelet Morphology Normal Red Blood Cell Morphology Normal Prothrombin Time 13.4 SEC (9.30-11.50) H Prothromb Time International Ratio 1.3 (0.9-1.1) H Activated Partial Thromboplast Time 41 SEC (23-33) H Sodium Level 133 mEQ/L (135-145) L Potassium Level 3.5 mEQ/L (3.4-4.9) Chloride Level 103 mEQ/L (98-107) Carbon Dioxide Level 19 mEQ/L (20-30) L Anion Gap 11 (5-15) Blood Urea Nitrogen 19 mg/dL (7-23) Creatinine 1.1 mg/dL (0.5-0.9) #H Estimat Glomerular Filtration Rate mL/min (>60) Glucose Level 98 mg/dL (74-106) Lactic Acid Level 1.10 mmol/L (0.66-2.22) Calcium Level 6.8 mg/dL (8.6-10.2) L Total Bilirubin 0.3 mg/dL (0.0-1.2) Aspartate Amino Transf (AST/SGOT) 24 U/L (5-40) Alanine Aminotransferase (ALT/SGPT) 7 U/L (3-33) Alkaline Phosphatase 56 U/L (35-104) Total Protein 4.9 g/dL (6.6-8.7) L Albumin 1.7 g/dL (3.5-5.2) L Globulin 3.2 g/dL Albumin/Globulin Ratio 0.5 (1.0-2.7) L Current Medications Medications (Trade) Dose Ordered Sig/Trip Route PRN Reason Start Time Stop Time Status Last Admin Dose Admin Acetaminophen (Tylenol) 650 mg Q4H PRN NG Prn Headache/Temp > 101 07/10/16 00:45 08/09/16 00:44 07/14/16 21:15 Aspirin (ASA) 81 mg DAILY ORAL 07/10/16 09:00 08/09/16 08:59 Atorvastatin Calcium (Lipitor) 20 mg BEDTIME ORAL 07/10/16 21:00 08/09/16 20:59 07/13/16 20:47 Dextrose (D5W 1000ml) 1,000 ml @ 75 mls/hr [id number] IV 07/13/16 09:00 08/12/16 08:59 07/15/16 10:11 Levothyroxine Sodium (Synthroid) 125 mcg ACBREAKFAST ORAL 07/10/16 06:30 08/09/16 06:29 07/14/16 06:52 Lisinopril (Zestril) 10 mg DAILY NG 07/10/16 09:00 08/09/16 08:59 07/14/16 09:39 Metoprolol Tartrate (Lopressor) 25 mg Q12HR NG 07/14/16 09:00 08/13/16 08:59 07/14/16 09:48 Multivitamins (Multivitamin Hexavitamin) 5 ml DAILY GT 07/10/16 09:00 08/09/16 08:59 07/14/16 09:41 Norepinephrine Bitartrate/ Dextrose (Levophed/D5W) 250 ml @ 0 mls/hr Q24H IV 07/15/16 03:30 08/14/16 03:29 Pantoprazole (Protonix) 40 mg DAILY IVP 07/10/16 09:00 08/09/16 08:59 07/15/16 09:22 Piperacillin Sod/ Tazobactam Sod 3.375 gm/Dextrose 110 ml @ 27.5 mls/hr EVERY 8 HOURS IVPB 07/14/16 14:00 07/19/16 13:59 07/15/16 06:07 Vancomycin HCl 500 mg/Dextrose 110 ml @ 110 mls/hr Q24H IVPB 07/15/16 12:00 07/20/16 11:59 Vancomycin HCl 1 ea 1 ea DAILY PRN MISC Per rx protocol 07/14/16 09:30 08/13/16 09:29 Vitamin D 1 intlu 1 intlu DAILY ORAL 07/10/16 09:00 08/09/16 08:59 07/14/16 09:39 JAMEEL TRIPATHI Jul 15, 2016 10:35
[2016-07-15] MEDS: Vancomycin 500mg/D5W 110ml IVPB SCH ×2 (12:04)
--- NOTE | 2016-07-15 12:43 | Critical Care Progress Note ---
Assessment/Plan Assessment/Plan IMPRESSION: Respiratory failure, resolved, presumed sepsis, shock, hypothermia, hypotension-recurrent, history of dementia , history congestive heart failure, history of coronary artery disease, history of hypertension, possible acute on chronic renal failure, significant lactic acidemia, protein-calorie malnutrition, and profound leukocytosis-resolved; fevers PLAN pulmonary care noted and reviewed back on antibiotics fluid management chest xr negative exam noted and edited care reviewed in detail no distress at present awaiting placement and GT optimize and advance care as able will follow up for further changes monitor for aspiration and congestion medications/laboratory data/nursing notes reviewed in detail note reviewed and edited care discussed with RN and RT Critical Care - Subjective Interval Events: transferred for hypotension now improved all noted Condition: improving EKG Rhythm: Sinus Rhythm I&O: Intake and Output 07/14/16 07/15/16 19:00 07:00 Intake Total 525 ml 2475.5 ml Output Total 700 ml 510 ml Balance -175 ml 1965.5 ml IV Total 525 ml 2475.5 ml Output Urine Total 700 ml 510 ml Critical Care - Objective ET-Tube: 8.0 ET Position: 24 Last 24 Hour Vital Signs Date Time Temp Pulse Resp B/P Pulse Ox O2 Delivery O2 Flow Rate FiO2 07/15/16 12:00 98.2 74 17 100/67 100 Nasal Cannula 2.0 07/15/16 11:00 98.2 90 17 106/46 100 Nasal Cannula 2.0 07/15/16 10:00 81 17 91/44 100 Nasal Cannula 2.0 07/15/16 09:00 83 96/45 07/15/16 09:00 96/45 07/15/16 09:00 77 22 95/36 100 Nasal Cannula 2.0 07/15/16 08:00 99.0 83 20 96/45 100 Nasal Cannula 2.0 07/15/16 07:00 88 18 98/42 100 Nasal Cannula 2.0 07/15/16 06:00 84 20 104/38 95 Nasal Cannula 2.0 07/15/16 05:00 82 20 85/36 95 Nasal Cannula 2.0 07/15/16 04:00 98.5 89 20 100/46 95 Nasal Cannula 2.0 07/15/16 04:00 86 07/15/16 03:30 102/37 07/15/16 03:00 84 20 87/36 95 Nasal Cannula 2.0 07/15/16 02:00 83 20 70/45 95 Nasal Cannula 2.0 07/15/16 01:15 76 07/15/16 01:15 98.5 82 20 80/38 95 Nasal Cannula 2.0 07/15/16 00:00 97.9 95 20 57/26 95 Nasal Cannula 2.0 07/14/16 21:45 99.7 07/14/16 21:00 101 80/44 07/14/16 19:30 100.6 90 20 95/42 96 Nasal Cannula 2.0 07/14/16 19:00 96.4 68 18 100/58 Nasal Cannula 2.0 07/14/16 16:00 97.3 68 18 110/62 94 Nasal Cannula 2.0 07/14/16 15:01 97.9 87 22 71/38 96 Nasal Cannula 2.0 Labs: Labs Test 07/13/16 05:00 07/14/16 06:05 07/15/16 05:20 White Blood Count 10.1 K/UL (4.8-10.8) 10.4 K/UL (4.8-10.8) 10.2 K/UL (4.8-10.8) Red Blood Count 3.13 M/UL (4.20-5.40) 3.03 M/UL (4.20-5.40) 2.53 M/UL (4.20-5.40) Hemoglobin 9.4 G/DL (12.0-16.0) 9.2 G/DL (12.0-16.0) 7.9 G/DL (12.0-16.0) Hematocrit 28.2 % (37.0-47.0) 27.1 % (37.0-47.0) 22.9 % (37.0-47.0) Mean Corpuscular Volume 90 FL (80-99) 89 FL (80-99) 90 FL (80-99) Mean Corpuscular Hemoglobin 30.1 PG (27.0-31.0) 30.3 PG (27.0-31.0) 31.3 PG (27.0-31.0) Mean Corpuscular Hemoglobin Concent 33.4 G/DL (32.0-36.0) 33.9 G/DL (32.0-36.0) 34.7 G/DL (32.0-36.0) Red Cell Distribution Width 14.8 % (11.6-14.8) 14.9 % (11.6-14.8) 15.2 % (11.6-14.8) Platelet Count 307 K/UL (150-450) 250 K/UL (150-450) 188 K/UL (150-450) Mean Platelet Volume 8.0 FL (6.5-10.1) 7.9 FL (6.5-10.1) 8.5 FL (6.5-10.1) Neutrophils (%) (Auto) 57.6 % (45.0-75.0) 75.9 % (45.0-75.0) % (45.0-75.0) Lymphocytes (%) (Auto) 28.0 % (20.0-45.0) 13.6 % (20.0-45.0) % (20.0-45.0) Monocytes (%) (Auto) 9.2 % (1.0-10.0) 5.5 % (1.0-10.0) % (1.0-10.0) Eosinophils (%) (Auto) 4.5 % (0.0-3.0) 4.4 % (0.0-3.0) % (0.0-3.0) Basophils (%) (Auto) 0.6 % (0.0-2.0) 0.5 % (0.0-2.0) % (0.0-2.0) Prothrombin Time 12.3 SEC (9.30-11.50) 13.4 SEC (9.30-11.50) Prothromb Time International Ratio 1.2 (0.9-1.1) 1.3 (0.9-1.1) Activated Partial Thromboplast Time 29 SEC (23-33) 41 SEC (23-33) Sodium Level 150 mEQ/L (135-145) 140 mEQ/L (135-145) 133 mEQ/L (135-145) Potassium Level 4.0 mEQ/L (3.4-4.9) 4.0 mEQ/L (3.4-4.9) 3.5 mEQ/L (3.4-4.9) Chloride Level 114 mEQ/L (98-107) 107 mEQ/L (98-107) 103 mEQ/L (98-107) Carbon Dioxide Level 22 mEQ/L (20-30) 22 mEQ/L (20-30) 19 mEQ/L (20-30) Anion Gap 14 (5-15) 11 (5-15) 11 (5-15) Blood Urea Nitrogen 10 mg/dL (7-23) 14 mg/dL (7-23) 19 mg/dL (7-23) Creatinine 0.8 mg/dL (0.5-0.9) 0.7 mg/dL (0.5-0.9) 1.1 mg/dL (0.5-0.9) Estimat Glomerular Filtration Rate mL/min (>60) mL/min (>60) mL/min (>60) Glucose Level 118 mg/dL (74-106) 111 mg/dL (74-106) 98 mg/dL (74-106) Calcium Level 8.0 mg/dL (8.6-10.2) 7.8 mg/dL (8.6-10.2) 6.8 mg/dL (8.6-10.2) Magnesium Level 1.5 mg/dL (1.7-2.5) 1.7 mg/dL (1.7-2.5) Pro-B-Type Natriuretic Peptide 2694 pg/mL (0-450) Total Bilirubin 0.3 mg/dL (0.0-1.2) 0.3 mg/dL (0.0-1.2) Aspartate Amino Transf (AST/SGOT) 18 U/L (5-40) 24 U/L (5-40) Alanine Aminotransferase (ALT/SGPT) 7 U/L (3-33) 7 U/L (3-33) Alkaline Phosphatase 77 U/L (35-104) 56 U/L (35-104) Total Protein 6.0 g/dL (6.6-8.7) 4.9 g/dL (6.6-8.7) Albumin 2.1 g/dL (3.5-5.2) 1.7 g/dL (3.5-5.2) Globulin 3.9 g/dL 3.2 g/dL Albumin/Globulin Ratio 0.5 (1.0-2.7) 0.5 (1.0-2.7) Differential Total Cells Counted 100 Neutrophils % (Manual) 83 % (45-75) Lymphocytes % (Manual) 8 % (20-45) Monocytes % (Manual) 4 % (1-10) Eosinophils % (Manual) 5 % (0-3) Basophils % (Manual) 0 % (0-2) Band Neutrophils 0 % (0-8) Platelet Estimate Adequate Platelet Morphology Normal Red Blood Cell Morphology Normal Lactic Acid Level 1.10 mmol/L (0.66-2.22) Objective: GENERAL: A well-developed female, NAD HEENT: Fairly negative. NAD NECK: Supple. No jugular venous distention. LUNGS: stable breath sounds without rhonchi; Moderate air entry. occasional rhonchi CARDIAC: S1 and S2. RRR without murmurs, rubs, or gallops. ABDOMEN: Soft, nontender, and nondistended. no HSM EXTREMITIES: No cyanosis or clubbing. No edema. NEUROLOGICAL: Grossly nonfocal. contracted and withdrawn reviewed and edited MARCELO BIRMINGHAM Jul 15, 2016 12:43
--- NOTE | 2016-07-15 13:47 | Progress Note ---
DATE: 07/14/2016 SUBJECTIVE: Patient remains with NG-tube in place. No new events noted. OBJECTIVE: VITAL SIGNS: Blood pressure 95/42, pulse 90, respirations 20. LUNGS: Bilateral breath sounds, diminished at bases. HEART: Regular rhythm and rate. Normal S1 and S2. ABDOMEN: Soft. . . No edema. LABORATORY DATA: White count is 10 and hemoglobin 9.2. Potassium 4.0 and magnesium 1.7. Albumin 2.1. Chest x-ray reveals atelectasis at the left base. IMPRESSION: 1. Dysphagia with due to sepsis and hypovolemia, dehydration. 2. Borderline hypomagnesemia. 3. Ischemic cardiomyopathy. 4. Atelectasis. 5. Hiatal hernia. PLAN: 1. Surgical G-tube. 2. Empiric magnesium. 3. Titrate anti-failure regimen and begin nutrition by feeding tube once placed with adequate bowel sounds. Yohan Corbett M.D. DR: YONATAN JOB#: [id number] CC:
[2016-07-15] MEDS: Atorvastatin 20mg tab ORAL SCH (21:26)
[2016-07-16] VITALS (24 sets, daily range): BP systolic 85–150; BP diastolic 41–87
[2016-07-16 05:45] LABS: BASOPHILS % (AUTO) 0.9 % (0.0-2.0); EOSINOPHILS % (AUTO) 6.6 % (0.0-3.0); LYMPHOCYTES % (AUTO) 33.7 % (20.0-45.0); MEAN CORPUSCULAR HEMOGLOBIN 30.5 PG (27.0-31.0); MEAN CORPUSCULAR HGB CONC 34.9 G/DL (32.0-36.0); MEAN CORPUSCULAR VOLUME 87 FL (80-99); MEAN PLATELET VOLUME 9.3 FL (6.5-10.1); NEUTROPHILS % (AUTO) 53.8 % (45.0-75.0); PLATELET COUNT 191 K/UL (150-450); RED BLOOD COUNT 3.98 M/UL (4.20-5.40); RED CELL DISTRIBUTION WIDTH 13.4 % (11.6-14.8); WHITE BLOOD COUNT 9.6 K/UL (4.8-10.8)
[2016-07-16 06:06] LABS: ALANINE AMINOTRANSFERASE 9 U/L (3-33); ALBUMIN/GLOBULIN RATIO 0.5 (1.0-2.7); ANION GAP 13 (5-15); ASPARTATE AMINO TRANSFERASE 27 U/L (5-40); CARBON DIOXIDE 19 mEQ/L (20-30); CHLORIDE 94 mEQ/L (98-107); CREATININE 0.8 mg/dL (0.5-0.9); HEMOLYSIS 6; POTASSIUM 3.7 mEQ/L (3.4-4.9); SODIUM 126 mEQ/L (135-145); TOTAL PROTEIN 5.4 g/dL (6.6-8.7)
[2016-07-16] MEDS: Piperacillin/Tazobactam 3.375 GM in D5W 110 ML IVPB SCH ×3 (06:21→21:38)
[2016-07-16] MEDS: Levothyroxine 125mcg tab ORAL SCH (06:21)
--- NOTE | 2016-07-16 08:22 | General Progress Note ---
Assessment/Plan Problem List: (1) Hypothyroid ICD Codes: E03.9 - Hypothyroid SNOMED: 49461529 (2) Septic shock ICD Codes: A41.9 - Sepsis, unspecified organism; R65.21 - Severe sepsis with septic shock SNOMED: 01039454 (3) Acute renal failure ICD Codes: N17.9 - Acute kidney failure, unspecified SNOMED: 18716720 Qualifiers: Qualified Codes: N17.0 - Acute kidney failure with tubular necrosis (4) Sepsis ICD Codes: A41.9 - Sepsis, unspecified organism SNOMED: 77967090 (5) Altered mental status ICD Codes: R41.82 - Altered mental status, unspecified SNOMED: 971388073 Qualifiers: Qualified Codes: R41.0 - Disorientation, unspecified (6) Acute delirium ICD Codes: R41.0 - Acute delirium SNOMED: 7254040 (7) UTI (lower urinary tract infection) ICD Codes: N39.0 - UTI (lower urinary tract infection) SNOMED: 6907873 Status: stable, not improved, unchanged, deteriorating Assessment/Plan ivf iv abx per if follow up cultures meds thru ngt tpn surgery rescheduled for wednesday Subjective ROS Limited/Unobtainable: Yes Constitutional: Reports: malaise, weakness HEENT: Reports: no symptoms Cardiovascular: Reports: no symptoms Respiratory: Reports: no symptoms Gastrointestinal/Abdominal: Reports: difficulty swallowing Genitourinary: Reports: no symptoms Neurologic/Psychiatric: Reports: pre-existing deficit Endocrine: Reports: no symptoms Hematologic/Lymphatic: Reports: no symptoms Allergies: Coded Allergies: No Known Allergies (Unverified , 04/18/12) All Systems: reviewed and negative except above Subjective transferred to icu for hypotension. bp improved. + ngt but cant feed because of hiatal hernia. Objective Last 24 Hour Vital Signs Date Time Temp Pulse Resp B/P Pulse Ox O2 Delivery O2 Flow Rate FiO2 07/16/16 07:00 83 19 115/65 98 Nasal Cannula 2.0 07/16/16 06:00 82 18 108/78 98 Nasal Cannula 2.0 07/16/16 05:00 77 19 118/71 98 Nasal Cannula 2.0 07/16/16 04:00 98.9 77 21 103/56 98 Nasal Cannula 2.0 07/16/16 04:00 77 07/16/16 03:30 108/78 07/16/16 03:00 77 21 111/87 98 Nasal Cannula 2.0 07/16/16 02:00 76 20 115/56 99 Nasal Cannula 2.0 07/16/16 01:00 74 18 110/73 98 Nasal Cannula 2.0 07/16/16 00:00 99.2 72 19 101/57 98 Nasal Cannula 2.0 07/15/16 23:00 71 19 121/51 98 Nasal Cannula 2.0 07/15/16 22:00 100.0 77 17 110/54 99 Nasal Cannula 2.0 07/15/16 21:26 84 131/72 07/15/16 21:00 88 17 131/72 99 Nasal Cannula 2.0 07/15/16 20:00 84 07/15/16 20:00 99.2 84 17 153/64 99 Nasal Cannula 2.0 07/15/16 19:00 92 17 118/52 99 Nasal Cannula 2.0 07/15/16 18:00 74 17 100/68 100 Nasal Cannula 2.0 07/15/16 17:00 81 18 99/67 99 Nasal Cannula 2.0 07/15/16 16:00 99.0 76 17 126/77 100 Nasal Cannula 2.0 07/15/16 16:00 76 07/15/16 15:00 77 17 114/54 99 Nasal Cannula 2.0 07/15/16 14:00 79 17 111/45 100 Nasal Cannula 2.0 07/15/16 13:00 78 17 125/64 100 Nasal Cannula 2.0 07/15/16 12:00 98.2 74 17 100/67 100 Nasal Cannula 2.0 07/15/16 12:00 73 07/15/16 11:00 98.2 90 17 106/46 100 Nasal Cannula 2.0 07/15/16 10:00 81 17 91/44 100 Nasal Cannula 2.0 07/15/16 09:00 83 96/45 07/15/16 09:00 96/45 07/15/16 09:00 77 22 95/36 100 Nasal Cannula 2.0 Intake and Output 07/15/16 07/16/16 19:00 07:00 Intake Total 1647.5 ml 927.5 ml Output Total 325 ml 400 ml Balance 1322.5 ml 527.5 ml IV Total 1052.5 ml 927.5 ml Blood Product 595 ml Output Urine Total 325 ml 400 ml # Bowel Movements 1 Laboratory Tests 07/16/16 05:00: White Blood Count 9.6, Red Blood Count 3.98L, Hemoglobin 12.1#, Hematocrit 34.7# L, Mean Corpuscular Volume 87, Mean Corpuscular Hemoglobin 30.5, Mean Corpuscular Hemoglobin Concent 34.9, Red Cell Distribution Width 13.4, Platelet Count 191, Mean Platelet Volume 9.3, Neutrophils (%) (Auto) 53.8, Lymphocytes (% ) (Auto) 33.7, Monocytes (%) (Auto) 5.0, Eosinophils (%) (Auto) 6.6H, Basophils (%) (Auto) 0.9, Sodium Level 126L, Potassium Level 3.7, Chloride Level 94L, Carbon Dioxide Level 19L, Anion Gap 13, Blood Urea Nitrogen 12, Creatinine 0.8, Estimat Glomerular Filtration Rate , Glucose Level 83, Calcium Level 7.0L, Magnesium Level 1.8, Total Bilirubin 0.6, Aspartate Amino Transf (AST/SGOT) 27, Alanine Aminotransferase (ALT/SGPT) 9, Alkaline Phosphatase 68, Total Protein 5.4L, Albumin 1.8L, Globulin 3.6, Albumin/Globulin Ratio 0.5L Height (Feet): 5 Height (Inches): 2.00 Weight (Pounds): 102 Objective General Appearance: WD/WN, lethargic, confused Neck: supple Cardiovascular: normal rate, regular rhythm Respiratory/Chest: lungs clear, normal breath sounds, no respiratory distress, no accessory muscle use Abdomen: normal bowel sounds, non tender, soft, no organomegaly Edema: no edema noted Arm (L), no edema noted Arm (R), no edema noted Leg (L), no edema noted Leg (R), no edema noted Pedal (L), no edema noted Pedal (R), no edema noted Generalized Neurologic: disoriented Skin: normal pigmentation, warm/dry HA FRANCIS Jul 16, 2016 08:22
--- NOTE | 2016-07-16 08:23 | Critical Care Progress Note ---
Assessment/Plan Assessment/Plan IMPRESSION: Respiratory failure, resolved, presumed sepsis, shock, hypothermia, hypotension-recurrent, history of dementia , history congestive heart failure, history of coronary artery disease, history of hypertension, possible acute on chronic renal failure, significant lactic acidemia, protein-calorie malnutrition, and profound leukocytosis-resolved; fevers PLAN pulmonary care without change on antibiotics fluid management and keep negative chest xr negative exam noted and edited care reviewed in detail no distress at present awaiting placement of GT optimize and advance care as able monitor for aspiration and congestion transition to tele medications/laboratory data/nursing notes reviewed in detail note reviewed and edited care discussed with RN and RT Critical Care - Subjective Interval Events: ICU care reviewed hemodynamics noted no distress ROS Limited/Unobtainable: Yes Condition: stable EKG Rhythm: Sinus Rhythm I&O: Intake and Output 07/15/16 07/16/16 19:00 07:00 Intake Total 1647.5 ml 927.5 ml Output Total 325 ml 400 ml Balance 1322.5 ml 527.5 ml IV Total 1052.5 ml 927.5 ml Blood Product 595 ml Output Urine Total 325 ml 400 ml # Bowel Movements 1 Critical Care - Objective ET-Tube: 8.0 ET Position: 24 Last 24 Hour Vital Signs Date Time Temp Pulse Resp B/P Pulse Ox O2 Delivery O2 Flow Rate FiO2 07/16/16 07:00 83 19 115/65 98 Nasal Cannula 2.0 07/16/16 06:00 82 18 108/78 98 Nasal Cannula 2.0 07/16/16 05:00 77 19 118/71 98 Nasal Cannula 2.0 07/16/16 04:00 98.9 77 21 103/56 98 Nasal Cannula 2.0 07/16/16 04:00 77 07/16/16 03:30 108/78 07/16/16 03:00 77 21 111/87 98 Nasal Cannula 2.0 07/16/16 02:00 76 20 115/56 99 Nasal Cannula 2.0 07/16/16 01:00 74 18 110/73 98 Nasal Cannula 2.0 07/16/16 00:00 99.2 72 19 101/57 98 Nasal Cannula 2.0 07/15/16 23:00 71 19 121/51 98 Nasal Cannula 2.0 07/15/16 22:00 100.0 77 17 110/54 99 Nasal Cannula 2.0 07/15/16 21:26 84 131/72 07/15/16 21:00 88 17 131/72 99 Nasal Cannula 2.0 07/15/16 20:00 84 07/15/16 20:00 99.2 84 17 153/64 99 Nasal Cannula 2.0 07/15/16 19:00 92 17 118/52 99 Nasal Cannula 2.0 07/15/16 18:00 74 17 100/68 100 Nasal Cannula 2.0 07/15/16 17:00 81 18 99/67 99 Nasal Cannula 2.0 07/15/16 16:00 99.0 76 17 126/77 100 Nasal Cannula 2.0 07/15/16 16:00 76 07/15/16 15:00 77 17 114/54 99 Nasal Cannula 2.0 07/15/16 14:00 79 17 111/45 100 Nasal Cannula 2.0 07/15/16 13:00 78 17 125/64 100 Nasal Cannula 2.0 07/15/16 12:00 98.2 74 17 100/67 100 Nasal Cannula 2.0 07/15/16 12:00 73 07/15/16 11:00 98.2 90 17 106/46 100 Nasal Cannula 2.0 07/15/16 10:00 81 17 91/44 100 Nasal Cannula 2.0 07/15/16 09:00 83 96/45 07/15/16 09:00 96/45 07/15/16 09:00 77 22 95/36 100 Nasal Cannula 2.0 Labs: Labs Test 07/14/16 06:05 07/15/16 05:20 07/16/16 05:00 White Blood Count 10.4 K/UL (4.8-10.8) 10.2 K/UL (4.8-10.8) 9.6 K/UL (4.8-10.8) Red Blood Count 3.03 M/UL (4.20-5.40) 2.53 M/UL (4.20-5.40) 3.98 M/UL (4.20-5.40) Hemoglobin 9.2 G/DL (12.0-16.0) 7.9 G/DL (12.0-16.0) 12.1 G/DL (12.0-16.0) Hematocrit 27.1 % (37.0-47.0) 22.9 % (37.0-47.0) 34.7 % (37.0-47.0) Mean Corpuscular Volume 89 FL (80-99) 90 FL (80-99) 87 FL (80-99) Mean Corpuscular Hemoglobin 30.3 PG (27.0-31.0) 31.3 PG (27.0-31.0) 30.5 PG (27.0-31.0) Mean Corpuscular Hemoglobin Concent 33.9 G/DL (32.0-36.0) 34.7 G/DL (32.0-36.0) 34.9 G/DL (32.0-36.0) Red Cell Distribution Width 14.9 % (11.6-14.8) 15.2 % (11.6-14.8) 13.4 % (11.6-14.8) Platelet Count 250 K/UL (150-450) 188 K/UL (150-450) 191 K/UL (150-450) Mean Platelet Volume 7.9 FL (6.5-10.1) 8.5 FL (6.5-10.1) 9.3 FL (6.5-10.1) Neutrophils (%) (Auto) 75.9 % (45.0-75.0) % (45.0-75.0) 53.8 % (45.0-75.0) Lymphocytes (%) (Auto) 13.6 % (20.0-45.0) % (20.0-45.0) 33.7 % (20.0-45.0) Monocytes (%) (Auto) 5.5 % (1.0-10.0) % (1.0-10.0) 5.0 % (1.0-10.0) Eosinophils (%) (Auto) 4.4 % (0.0-3.0) % (0.0-3.0) 6.6 % (0.0-3.0) Basophils (%) (Auto) 0.5 % (0.0-2.0) % (0.0-2.0) 0.9 % (0.0-2.0) Sodium Level 140 mEQ/L (135-145) 133 mEQ/L (135-145) 126 mEQ/L (135-145) Potassium Level 4.0 mEQ/L (3.4-4.9) 3.5 mEQ/L (3.4-4.9) 3.7 mEQ/L (3.4-4.9) Chloride Level 107 mEQ/L (98-107) 103 mEQ/L (98-107) 94 mEQ/L (98-107) Carbon Dioxide Level 22 mEQ/L (20-30) 19 mEQ/L (20-30) 19 mEQ/L (20-30) Anion Gap 11 (5-15) 11 (5-15) 13 (5-15) Blood Urea Nitrogen 14 mg/dL (7-23) 19 mg/dL (7-23) 12 mg/dL (7-23) Creatinine 0.7 mg/dL (0.5-0.9) 1.1 mg/dL (0.5-0.9) 0.8 mg/dL (0.5-0.9) Estimat Glomerular Filtration Rate mL/min (>60) mL/min (>60) mL/min (>60) Glucose Level 111 mg/dL (74-106) 98 mg/dL (74-106) 83 mg/dL (74-106) Calcium Level 7.8 mg/dL (8.6-10.2) 6.8 mg/dL (8.6-10.2) 7.0 mg/dL (8.6-10.2) Magnesium Level 1.7 mg/dL (1.7-2.5) 1.8 mg/dL (1.7-2.5) Total Bilirubin 0.3 mg/dL (0.0-1.2) 0.3 mg/dL (0.0-1.2) 0.6 mg/dL (0.0-1.2) Aspartate Amino Transf (AST/SGOT) 18 U/L (5-40) 24 U/L (5-40) 27 U/L (5-40) Alanine Aminotransferase (ALT/SGPT) 7 U/L (3-33) 7 U/L (3-33) 9 U/L (3-33) Alkaline Phosphatase 77 U/L (35-104) 56 U/L (35-104) 68 U/L (35-104) Total Protein 6.0 g/dL (6.6-8.7) 4.9 g/dL (6.6-8.7) 5.4 g/dL (6.6-8.7) Albumin 2.1 g/dL (3.5-5.2) 1.7 g/dL (3.5-5.2) 1.8 g/dL (3.5-5.2) Globulin 3.9 g/dL 3.2 g/dL 3.6 g/dL Albumin/Globulin Ratio 0.5 (1.0-2.7) 0.5 (1.0-2.7) 0.5 (1.0-2.7) Differential Total Cells Counted 100 Neutrophils % (Manual) 83 % (45-75) Lymphocytes % (Manual) 8 % (20-45) Monocytes % (Manual) 4 % (1-10) Eosinophils % (Manual) 5 % (0-3) Basophils % (Manual) 0 % (0-2) Band Neutrophils 0 % (0-8) Platelet Estimate Adequate Platelet Morphology Normal Red Blood Cell Morphology Normal Prothrombin Time 13.4 SEC (9.30-11.50) Prothromb Time International Ratio 1.3 (0.9-1.1) Activated Partial Thromboplast Time 41 SEC (23-33) Lactic Acid Level 1.10 mmol/L (0.66-2.22) Objective: GENERAL: A well-developed female, NAD HEENT: Fairly negative. NAD NECK: Supple. No jugular venous distention. LUNGS: stable breath sounds without rhonchi; Moderate air entry. minimal rhonchi CARDIAC: S1 and S2. RRR without murmurs, rubs, or gallops. ABDOMEN: Soft, nontender, and nondistended. no HSM EXTREMITIES: No cyanosis or clubbing. No edema. NEUROLOGICAL: Grossly nonfocal. contracted and withdrawn reviewed and edited MARCELO BIRMINGHAM Jul 16, 2016 08:23
--- NOTE | 2016-07-16 09:28 | Infectious Diseases Prog Note ---
Assessment/Plan Assessment/Plan A 1. Sepsis 3. Hypotension resolved 4. Anemia 5. Dysphagia 6. leucocytosis resolved 7. Atelectasis P 1. Continue Zosyn & Vancomycin 2. will f/u cultures, CXR Subjective ROS Limited/Unobtainable: Yes Constitutional: Reports: fever, other - low grade, [id number] Respiratory: Reports: dry cough Allergies: Coded Allergies: No Known Allergies (Unverified , 04/18/12) Objective Vital Signs Last 24 Hour Vital Signs Date Time Temp Pulse Resp B/P Pulse Ox O2 Delivery O2 Flow Rate FiO2 07/16/16 07:00 83 19 115/65 98 Nasal Cannula 2.0 07/16/16 06:00 82 18 108/78 98 Nasal Cannula 2.0 07/16/16 05:00 77 19 118/71 98 Nasal Cannula 2.0 07/16/16 04:00 98.9 77 21 103/56 98 Nasal Cannula 2.0 07/16/16 04:00 77 07/16/16 03:30 108/78 07/16/16 03:00 77 21 111/87 98 Nasal Cannula 2.0 07/16/16 02:00 76 20 115/56 99 Nasal Cannula 2.0 07/16/16 01:00 74 18 110/73 98 Nasal Cannula 2.0 07/16/16 00:00 99.2 72 19 101/57 98 Nasal Cannula 2.0 07/15/16 23:00 71 19 121/51 98 Nasal Cannula 2.0 07/15/16 22:00 100.0 77 17 110/54 99 Nasal Cannula 2.0 07/15/16 21:26 84 131/72 07/15/16 21:00 88 17 131/72 99 Nasal Cannula 2.0 07/15/16 20:00 84 07/15/16 20:00 99.2 84 17 153/64 99 Nasal Cannula 2.0 07/15/16 19:00 92 17 118/52 99 Nasal Cannula 2.0 07/15/16 18:00 74 17 100/68 100 Nasal Cannula 2.0 07/15/16 17:00 81 18 99/67 99 Nasal Cannula 2.0 07/15/16 16:00 99.0 76 17 126/77 100 Nasal Cannula 2.0 07/15/16 16:00 76 07/15/16 15:00 77 17 114/54 99 Nasal Cannula 2.0 07/15/16 14:00 79 17 111/45 100 Nasal Cannula 2.0 07/15/16 13:00 78 17 125/64 100 Nasal Cannula 2.0 07/15/16 12:00 98.2 74 17 100/67 100 Nasal Cannula 2.0 07/15/16 12:00 73 07/15/16 11:00 98.2 90 17 106/46 100 Nasal Cannula 2.0 07/15/16 10:00 81 17 91/44 100 Nasal Cannula 2.0 Height (Feet): 5 Height (Inches): 2.00 Weight (Pounds): 102 General Appearance: no acute distress Respiratory/Chest: decreased breath sounds Cardiovascular: normal rate, other - RIJ line Abdomen: soft, non tender, other - NG tube Extremities: no edema Neurologic/Psychiatric: aphasia Laboratory Tests Test 07/16/16 05:00 07/16/16 08:30 White Blood Count 9.6 K/UL (4.8-10.8) Red Blood Count 3.98 M/UL (4.20-5.40) L Hemoglobin 12.1 G/DL (12.0-16.0) # Hematocrit 34.7 % (37.0-47.0) #L Mean Corpuscular Volume 87 FL (80-99) Mean Corpuscular Hemoglobin 30.5 PG (27.0-31.0) Mean Corpuscular Hemoglobin Concent 34.9 G/DL (32.0-36.0) Red Cell Distribution Width 13.4 % (11.6-14.8) Platelet Count 191 K/UL (150-450) Mean Platelet Volume 9.3 FL (6.5-10.1) Neutrophils (%) (Auto) 53.8 % (45.0-75.0) Lymphocytes (%) (Auto) 33.7 % (20.0-45.0) Monocytes (%) (Auto) 5.0 % (1.0-10.0) Eosinophils (%) (Auto) 6.6 % (0.0-3.0) H Basophils (%) (Auto) 0.9 % (0.0-2.0) Sodium Level 126 mEQ/L (135-145) L Potassium Level 3.7 mEQ/L (3.4-4.9) Chloride Level 94 mEQ/L (98-107) L Carbon Dioxide Level 19 mEQ/L (20-30) L Anion Gap 13 (5-15) Blood Urea Nitrogen 12 mg/dL (7-23) Creatinine 0.8 mg/dL (0.5-0.9) Estimat Glomerular Filtration Rate mL/min (>60) Glucose Level 83 mg/dL (74-106) Calcium Level 7.0 mg/dL (8.6-10.2) L Magnesium Level 1.8 mg/dL (1.7-2.5) Total Bilirubin 0.6 mg/dL (0.0-1.2) Aspartate Amino Transf (AST/SGOT) 27 U/L (5-40) Alanine Aminotransferase (ALT/SGPT) 9 U/L (3-33) Alkaline Phosphatase 68 U/L (35-104) Total Protein 5.4 g/dL (6.6-8.7) L Albumin 1.8 g/dL (3.5-5.2) L Globulin 3.6 g/dL Albumin/Globulin Ratio 0.5 (1.0-2.7) L Cortisol Pending Current Medications Medications (Trade) Dose Ordered Sig/Trip Route PRN Reason Start Time Stop Time Status Last Admin Dose Admin Acetaminophen (Tylenol) 650 mg Q4H PRN NG Prn Headache/Temp > 101 07/10/16 00:45 08/09/16 00:44 07/14/16 21:15 Aspirin (ASA) 81 mg DAILY ORAL 07/10/16 09:00 08/09/16 08:59 Atorvastatin Calcium (Lipitor) 20 mg BEDTIME ORAL 07/10/16 21:00 08/09/16 20:59 07/15/16 21:26 Dextrose (D5W 1000ml) 1,000 ml @ 75 mls/hr [id number] IV 07/13/16 09:00 08/12/16 08:59 07/16/16 01:07 Levothyroxine Sodium (Synthroid) 125 mcg ACBREAKFAST ORAL 07/10/16 06:30 08/09/16 06:29 07/16/16 06:21 Lisinopril (Zestril) 10 mg DAILY NG 07/10/16 09:00 08/09/16 08:59 07/14/16 09:39 Metoprolol Tartrate (Lopressor) 25 mg Q12HR NG 07/14/16 09:00 08/13/16 08:59 07/15/16 21:26 Multivitamins (Multivitamin Hexavitamin) 5 ml DAILY GT 07/10/16 09:00 08/09/16 08:59 07/14/16 09:41 Norepinephrine Bitartrate/ Dextrose (Levophed/D5W) 250 ml @ 0 mls/hr Q24H IV 07/15/16 03:30 08/14/16 03:29 Pantoprazole (Protonix) 40 mg DAILY IVP 07/10/16 09:00 08/09/16 08:59 07/15/16 09:22 Piperacillin Sod/ Tazobactam Sod 3.375 gm/Dextrose 110 ml @ 27.5 mls/hr EVERY 8 HOURS IVPB 07/14/16 14:00 07/19/16 13:59 07/16/16 06:21 Vancomycin HCl 500 mg/Dextrose 110 ml @ 110 mls/hr Q24H IVPB 07/15/16 12:00 07/20/16 11:59 07/15/16 12:04 Vancomycin HCl 1 ea 1 ea DAILY PRN MISC Per rx protocol 07/14/16 09:30 08/13/16 09:29 Vitamin D 1 intlu 1 intlu DAILY ORAL 07/10/16 09:00 08/09/16 08:59 07/14/16 09:39 JAMEEL TRIPATHI Jul 16, 2016 09:28
[2016-07-16] MEDS: Lisinopril 10mg tab NG SCH (09:55)
[2016-07-16] MEDS: Aspirin Baby 81mg ORAL SCH (09:56)
[2016-07-16] MEDS: Metoprolol Tartrate 12.5mg TAB NG SCH ×2 (09:56→20:50)
[2016-07-16] MEDS: Vitamin D 1000 IU Tab ORAL SCH (09:56)
[2016-07-16] MEDS: Pantoprazole Inj IVP SCH (09:57)
[2016-07-16] MEDS: Acetaminophen 650mg/20.3ml NG PRN (09:58)
[2016-07-16] MEDS: Multivitamin 5ml Liquid GT SCH (09:58)
--- NOTE | 2016-07-16 10:23 | Diagnostic Imaging Report ---
Indications: COUGH Technique: Portable AP chest Findings: Comparison: None Inspiratory effort has mildly decreased. Hazy opacity in the/over left lung base increased. Blunting of left costophrenic angle persists. Diffuse bilateral interstitial infiltrates unchanged. Cardiac mediastinal silhouette stable. Lines and tubes remain in place, nasogastric tube still within distal thoracic esophagus. IMPRESSION: Apparent increase in left basal opacity may be due to decreased inspiration, increasing atelectasis versus pneumonia, or increased pleural effusion No other change from 2 days prior Recommend advancement of nasogastric tube 10-15 cm.
--- NOTE | 2016-07-16 11:28 | Progress Note ---
DATE: 07/15/2016 CARDIOLOGY PROGRESS NOTE SUBJECTIVE: The patient's condition has worsened. She became hypotensive. Surgical G-tube was canceled. The patient was transferred to the intensive care unit. OBJECTIVE: VITAL SIGNS: Withdrawn blood pressure as low as 57/26 now 98/42, heart rate 88, and respiratory rate 18. The patient is on 2 liters nasal cannula and saturating at 98% to 100%. LUNGS: Bilateral breath sounds. HEART: Regular rhythm and rate. Normal S1 and S2. ABDOMEN: Soft. EXTREMITIES: Trace edema. LABORATORY DATA: White count 10 and hemoglobin 7.9. Sodium 133, potassium 3.5, bicarbonate 19, BUN 19, and creatinine 1.1. Lactic acid is 1.1. Albumin is 1.7. IMPRESSION: 1. Anemia. 2. Shock. 3. Severe protein-calorie malnutrition. 4. Dysphagia recovered. 5. Urinary tract infection with sepsis. 6. Ischemic cardiomyopathy. PLAN: 1. ICU monitoring. 2. Packed red blood cell transfusions. 3. Volume support. 4. DVT prophylaxis. 5. culture. 6. Check cortisol level. 7. May need TPN and pending placement of feeding tube. Yohan Corbett M.D. DR: AMMY JOB#: [id number] CC:
[2016-07-16] MEDS: Vancomycin 500mg/D5W 110ml IVPB SCH ×2 (11:53)
[2016-07-16] MEDS ORDERED: D5NS 1,000 ML IV SCH (12:15)
--- NOTE | 2016-07-16 17:35 | Nephrology Progress Note ---
Assessment/Plan Problem List: (1) Pyelonephritis (2) Acute hypernatremia (3) Dehydration (4) Sepsis (5) MARCELLE (acute kidney injury) (6) Septic shock (7) Respiratory alkalosis (8) Hyponatremia (9) Hypokalemia Plan still needs iv rehydration, lab trend better, Na low and iv D5NS, asked to starty tpn will start 2/3, npo now Subjective ROS Limited/Unobtainable: Yes Objective Objective Last 24 Hour Vital Signs Date Time Temp Pulse Resp B/P Pulse Ox O2 Delivery O2 Flow Rate FiO2 07/16/16 17:00 66 20 86/49 100 Nasal Cannula 2.0 07/16/16 16:50 100 Nasal Cannula 2.0 28 07/16/16 16:49 Nasal Cannula 2.0 28 07/16/16 16:00 97.8 67 18 85/41 99 Nasal Cannula 2.0 07/16/16 16:00 68 07/16/16 15:04 68 20 91/60 100 Nasal Cannula 2.0 07/16/16 14:00 64 16 88/50 99 Nasal Cannula 2.0 07/16/16 13:00 66 17 91/54 99 Nasal Cannula 2.0 07/16/16 12:00 77 07/16/16 12:00 99.3 65 17 100/81 98 Nasal Cannula 2.0 07/16/16 11:04 98.4 75 18 96/64 98 Nasal Cannula 2.0 07/16/16 10:52 98.4 07/16/16 10:00 82 17 104/84 97 Nasal Cannula 2.0 07/16/16 09:56 80 150/66 07/16/16 09:55 150/66 07/16/16 09:00 100.2 82 20 150/66 98 Nasal Cannula 2.0 07/16/16 08:00 88 20 108/74 97 Nasal Cannula 2.0 07/16/16 08:00 98 07/16/16 07:00 83 19 115/65 98 Nasal Cannula 2.0 07/16/16 06:00 82 18 108/78 98 Nasal Cannula 2.0 07/16/16 05:00 77 19 118/71 98 Nasal Cannula 2.0 07/16/16 04:00 98.9 77 21 103/56 98 Nasal Cannula 2.0 07/16/16 04:00 77 2/17 03:30 108/78 07/16/16 03:00 77 21 111/87 98 Nasal Cannula 2.0 07/16/16 02:00 76 20 115/56 99 Nasal Cannula 2.0 07/16/16 01:00 74 18 110/73 98 Nasal Cannula 2.0 07/16/16 00:00 99.2 72 19 101/57 98 Nasal Cannula 2.0 07/15/16 23:00 71 19 121/51 98 Nasal Cannula 2.0 07/15/16 22:00 100.0 77 17 110/54 99 Nasal Cannula 2.0 07/15/16 21:26 84 131/72 07/15/16 21:00 88 17 131/72 99 Nasal Cannula 2.0 07/15/16 20:00 84 07/15/16 20:00 99.2 84 17 153/64 99 Nasal Cannula 2.0 07/15/16 19:00 92 17 118/52 99 Nasal Cannula 2.0 07/15/16 18:00 74 17 100/68 100 Nasal Cannula 2.0 Intake and Output 07/15/16 07/16/16 19:00 07:00 Intake Total 1647.5 ml 927.5 ml Output Total 325 ml 400 ml Balance 1322.5 ml 527.5 ml IV Total 1052.5 ml 927.5 ml Blood Product 595 ml Output Urine Total 325 ml 400 ml # Bowel Movements 1 Laboratory Tests 07/16/16 05:00: White Blood Count 9.6, Red Blood Count 3.98L, Hemoglobin 12.1#, Hematocrit 34.7# L, Mean Corpuscular Volume 87, Mean Corpuscular Hemoglobin 30.5, Mean Corpuscular Hemoglobin Concent 34.9, Red Cell Distribution Width 13.4, Platelet Count 191, Mean Platelet Volume 9.3, Neutrophils (%) (Auto) 53.8, Lymphocytes (% ) (Auto) 33.7, Monocytes (%) (Auto) 5.0, Eosinophils (%) (Auto) 6.6H, Basophils (%) (Auto) 0.9, Sodium Level 126L, Potassium Level 3.7, Chloride Level 94L, Carbon Dioxide Level 19L, Anion Gap 13, Blood Urea Nitrogen 12, Creatinine 0.8, Estimat Glomerular Filtration Rate , Glucose Level 83, Calcium Level 7.0L, Magnesium Level 1.8, Total Bilirubin 0.6, Aspartate Amino Transf (AST/SGOT) 27, Alanine Aminotransferase (ALT/SGPT) 9, Alkaline Phosphatase 68, Total Protein 5.4L, Albumin 1.8L, Globulin 3.6, Albumin/Globulin Ratio 0.5L 07/16/16 08:30: Cortisol [Pending] Height (Feet): 5 Height (Inches): 2.00 Weight (Pounds): 102 General Appearance: confused EENT: normal ENT inspection Neck: normal alignment Cardiovascular: normal rate Respiratory/Chest: lungs clear Abdomen: non tender, soft Neurologic: motor weakness JILL GASPAR Jul 16, 2016 17:35
[2016-07-16 18:45] LABS: APPEARANCE,URINE SLIGHTLY CLOUDY; KETONES,URINE NEGATIVE (NEGATIVE); LEUKOCYTE ESTERASE ,URINE 3+ (NEGATIVE); NITRITE,URINE NEGATIVE (NEGATIVE); PH,URINE 6.5 (4.5-8.0); PROTEIN,URINE 1+ (NEGATIVE); UROBILINOGEN,URINE NORMAL MG/DL (0.0-1.0)
[2016-07-16 19:00] LABS: BACTERIA,URINE FEW /HPF; RBC,URINE 0-2 /HPF (0 - 2); SQUAMOUS EPITHELIAL CELL,UR OCCASIONAL /LPF (NONE/OCC); WBC,URINE TNTC /HPF (0 - 2)
[2016-07-16] MEDS: Atorvastatin 20mg tab ORAL SCH (20:51)
[2016-07-16] MEDS ORDERED: Tpn 2,000 ML IV SCH (21:00)
--- NOTE | 2016-07-16 22:14 | General Progress Note ---
Assessment/Plan Assessment/Plan Assessment - hypotension - progressive anemia - hyponatremia - OBS - malnutrition --> TPN since surgery postponed - EGD shows large HH - NGT placed under direct vision in gastric cavity-but tip still in lower chest - Much of stomach appears to be in the chest - unable to identify clear landmarks for endoscopic PEG placement - Need surgical GT placement Recommendation - Consider TPN - Defer to renal - transfuse PRN - monitor labs - Free water restriction - NPO via oral route - Await surgery Subjective Allergies: Coded Allergies: No Known Allergies (Unverified , 04/18/12) Subjective seen in ICU pt non communicative surgery postponed to next week D/w staffing recruiter Objective Last 24 Hour Vital Signs Date Time Temp Pulse Resp B/P Pulse Ox O2 Delivery O2 Flow Rate FiO2 07/16/16 21:00 68 16 123/69 100 Nasal Cannula 2.0 07/16/16 20:50 67 89/61 07/16/16 20:00 67 07/16/16 20:00 97.9 67 18 121/61 99 Nasal Cannula 2.0 07/16/16 19:00 70 20 88/50 100 Nasal Cannula 2.0 07/16/16 18:00 67 20 90/59 100 Nasal Cannula 2.0 07/16/16 17:00 66 20 86/49 100 Nasal Cannula 2.0 07/16/16 16:50 100 Nasal Cannula 2.0 28 07/16/16 16:49 Nasal Cannula 2.0 28 07/16/16 16:00 97.8 67 18 85/41 99 Nasal Cannula 2.0 07/16/16 16:00 68 07/16/16 15:04 68 20 91/60 100 Nasal Cannula 2.0 07/16/16 14:00 64 16 88/50 99 Nasal Cannula 2.0 07/16/16 13:00 66 17 91/54 99 Nasal Cannula 2.0 07/16/16 12:00 77 07/16/16 12:00 99.3 65 17 100/81 98 Nasal Cannula 2.0 07/16/16 11:04 98.4 75 18 96/64 98 Nasal Cannula 2.0 07/16/16 10:52 98.4 07/16/16 10:00 82 17 104/84 97 Nasal Cannula 2.0 07/16/16 09:56 80 150/66 07/16/16 09:55 150/66 07/16/16 09:00 100.2 82 20 150/66 98 Nasal Cannula 2.0 07/16/16 08:00 88 20 108/74 97 Nasal Cannula 2.0 07/16/16 08:00 98 07/16/16 07:00 83 19 115/65 98 Nasal Cannula 2.0 07/16/16 06:00 82 18 108/78 98 Nasal Cannula 2.0 07/16/16 05:00 77 19 118/71 98 Nasal Cannula 2.0 07/16/16 04:00 98.9 77 21 103/56 98 Nasal Cannula 2.0 07/16/16 04:00 77 07/16/16 03:30 108/78 07/16/16 03:00 77 21 111/87 98 Nasal Cannula 2.0 07/16/16 02:00 76 20 115/56 99 Nasal Cannula 2.0 07/16/16 01:00 74 18 110/73 98 Nasal Cannula 2.0 07/16/16 00:00 99.2 72 19 101/57 98 Nasal Cannula 2.0 07/15/16 23:00 71 19 121/51 98 Nasal Cannula 2.0 Intake and Output 07/15/16 07/16/16 19:00 07:00 Intake Total 1647.5 ml 927.5 ml Output Total 325 ml 400 ml Balance 1322.5 ml 527.5 ml IV Total 1052.5 ml 927.5 ml Blood Product 595 ml Output Urine Total 325 ml 400 ml # Bowel Movements 1 Laboratory Tests 07/16/16 05:00: White Blood Count 9.6, Red Blood Count 3.98L, Hemoglobin 12.1#, Hematocrit 34.7# L, Mean Corpuscular Volume 87, Mean Corpuscular Hemoglobin 30.5, Mean Corpuscular Hemoglobin Concent 34.9, Red Cell Distribution Width 13.4, Platelet Count 191, Mean Platelet Volume 9.3, Neutrophils (%) (Auto) 53.8, Lymphocytes (% ) (Auto) 33.7, Monocytes (%) (Auto) 5.0, Eosinophils (%) (Auto) 6.6H, Basophils (%) (Auto) 0.9, Sodium Level 126L, Potassium Level 3.7, Chloride Level 94L, Carbon Dioxide Level 19L, Anion Gap 13, Blood Urea Nitrogen 12, Creatinine 0.8, Estimat Glomerular Filtration Rate , Glucose Level 83, Calcium Level 7.0L, Magnesium Level 1.8, Total Bilirubin 0.6, Aspartate Amino Transf (AST/SGOT) 27, Alanine Aminotransferase (ALT/SGPT) 9, Alkaline Phosphatase 68, Total Protein 5.4L, Albumin 1.8L, Globulin 3.6, Albumin/Globulin Ratio 0.5L 07/16/16 08:30: Cortisol [Pending] 07/16/16 17:55: Urine Color Pale yellow, Urine Appearance Slightly cloudy, Urine pH 6.5, Urine Specific [place] 1.010, Urine Protein 1+H, Urine Glucose (UA) Negative, Urine Ketones Negative, Urine Occult Blood 4+H, Urine Nitrite Negative, Urine Bilirubin Negative, Urine Urobilinogen Normal, Urine Leukocyte Esterase 3+H, Urine RBC 0-2, Urine WBC TntcH, Urine Squamous Epithelial Cells Occasional, Urine Bacteria Few Height (Feet): 5 Height (Inches): 2.00 Weight (Pounds): 102 Objective Thin WW NCAT, (+) NGT supple CTA RRR Soft Flat ND (+) contractures (+) OBS KALEE SERRATO Jul 16, 2016 22:14
[2016-07-16] MEDS ORDERED: Dextrose 10% 1,000 ML IV PRN (23:35)
[2016-07-17] VITALS (7 sets, daily range): BP systolic 98–132; BP diastolic 54–84
[2016-07-17] MEDS ORDERED: Ertapenem 0.5 GM in NS 55 ML IVPB SCH (04:00)
[2016-07-17] MEDS ORDERED: Ertapenem 0.5 GM in NS 55 ML IVPB ONE (04:00)
[2016-07-17] MEDS ORDERED: Ertapenem (INVanz) Inj ONE (04:45)
--- NOTE | 2016-07-17 04:57 | Progress Note ---
DATE: 07/16/2016 CARDIOLOGY PROGRESS NOTE: SUBJECTIVE: The patient's condition remains critical. Prognosis is guarded. She remains in the intensive care unit. Her blood pressure is marginal. Surgical G-tube has been canceled. OBJECTIVE: VITAL SIGNS: Afebrile, blood pressure 85/40, pulse 67, and respiratory rate 18. HEENT: Temporal wasting. LUNGS: Bilateral breath sounds. HEART: Regular rhythm and rate. Normal S1, S2. There is a 1/6 systolic apical murmur. ABDOMEN: Soft. EXTREMITIES: No edema. LABORATORY AND DIAGNOSTIC DATA: White count 9.6 and hemoglobin 12.1. Urinalysis with too numerous to count white cells. Sodium 126, potassium 3.7, bicarb 19, BUN 12, and creatinine 0.8. Albumin 1.8. Magnesium 1.8. Cortisol level pending. Chest x-ray reveals left basilar opacity possibly atelectasis versus infiltrates. IMPRESSION: 1. Shock. 2. Sepsis. 3. Urinary tract infection. 4. Severe protein-calorie malnutrition. 5. Hyponatremia possibly adrenal insufficiency. PLAN: Broaden antibiotic. Saline hydration. Hold antihypertensive and anti failure drugs. TPN for nutrition. Surgical G-tube once the patient is stable hemodynamically. Yohan Corbett M.D. DR: Ignacio JOB#: [id number] CC:
[2016-07-17 06:04] LABS: BASOPHILS % (AUTO) 1.2 % (0.0-2.0); EOSINOPHILS % (AUTO) 5.2 % (0.0-3.0); LYMPHOCYTES % (AUTO) 31.5 % (20.0-45.0); MEAN CORPUSCULAR HEMOGLOBIN 30.8 PG (27.0-31.0); MEAN CORPUSCULAR HGB CONC 34.2 G/DL (32.0-36.0); MEAN CORPUSCULAR VOLUME 90 FL (80-99); MEAN PLATELET VOLUME 8.8 FL (6.5-10.1); MONOCYTES % (AUTO) 5.4 % (1.0-10.0); NEUTROPHILS % (AUTO) 56.7 % (45.0-75.0); PLATELET COUNT 174 K/UL (150-450); RED BLOOD COUNT 3.93 M/UL (4.20-5.40); WHITE BLOOD COUNT 8.8 K/UL (4.8-10.8)
[2016-07-17] MEDS: Levothyroxine 125mcg tab ORAL SCH (06:17)
[2016-07-17] MEDS: Piperacillin/Tazobactam 3.375 GM in D5W 110 ML IVPB SCH ×3 (06:18→22:00)
[2016-07-17 06:49] LABS: ANION GAP 16 (5-15); CALCIUM 7.3 mg/dL (8.6-10.2); CARBON DIOXIDE 15 mEQ/L (20-30); CHLORIDE 104 mEQ/L (98-107); CREATININE 0.9 mg/dL (0.5-0.9); HEMOLYSIS 10; PHOSPHORUS 2.6 mg/dL (2.5-4.8); POTASSIUM 3.8 mEQ/L (3.4-4.9); SODIUM 135 mEQ/L (135-145)
[2016-07-17] MEDS: Aspirin Baby 81mg ORAL SCH (08:30)
[2016-07-17] MEDS: Pantoprazole Inj IVP SCH (08:30)
[2016-07-17] MEDS ORDERED: Lisinopril 10mg tab NG SCH (09:00)
[2016-07-17] MEDS ORDERED: Multivitamin 5ml Liquid GT SCH (09:00)
[2016-07-17] MEDS ORDERED: Metoprolol 25mg tab NG SCH (09:00)
[2016-07-17] MEDS ORDERED: Vitamin D 1000 IU Tab ORAL SCH (09:00)
--- NOTE | 2016-07-17 09:08 | General Progress Note ---
Assessment/Plan Problem List: (1) Hypothyroid ICD Codes: E03.9 - Hypothyroid SNOMED: 93854321 (2) Septic shock ICD Codes: A41.9 - Sepsis, unspecified organism; R65.21 - Severe sepsis with septic shock SNOMED: 51818564 (3) Acute renal failure ICD Codes: N17.9 - Acute kidney failure, unspecified SNOMED: 88797796 Qualifiers: Qualified Codes: N17.0 - Acute kidney failure with tubular necrosis (4) Sepsis ICD Codes: A41.9 - Sepsis, unspecified organism SNOMED: 28421007 (5) Altered mental status ICD Codes: R41.82 - Altered mental status, unspecified SNOMED: 612748008 Qualifiers: Qualified Codes: R41.0 - Disorientation, unspecified (6) Acute delirium ICD Codes: R41.0 - Acute delirium SNOMED: 8594607 (7) UTI (lower urinary tract infection) ICD Codes: N39.0 - UTI (lower urinary tract infection) SNOMED: 7621337 Status: stable, not improved, deteriorating Status Narrative tpn/ivf abd per id skin care resp care surgical gt wednesday if bp stable. d/w Assessment/Plan ivf iv abx per if follow up cultures meds thru ngt tpn surgery rescheduled for wednesday Subjective ROS Limited/Unobtainable: Yes Constitutional: Reports: malaise, weakness HEENT: Reports: no symptoms Cardiovascular: Reports: no symptoms Respiratory: Reports: no symptoms Gastrointestinal/Abdominal: Reports: difficulty swallowing, poor appetite, poor fluid intake Genitourinary: Reports: no symptoms Neurologic/Psychiatric: Reports: pre-existing deficit Endocrine: Reports: no symptoms Hematologic/Lymphatic: Reports: no symptoms Allergies: Coded Allergies: No Known Allergies (Unverified , 04/18/12) All Systems: reviewed and negative except above Subjective out fo the icu. has ngt. cant feed due to hiatal hernia per GI. on ivf. renal to start tpn. bp more stable. Objective Last 24 Hour Vital Signs Date Time Temp Pulse Resp B/P Pulse Ox O2 Delivery O2 Flow Rate FiO2 07/17/16 04:00 97.7 71 20 132/68 97 Nasal Cannula 2.0 07/17/16 03:46 84 07/17/16 01:47 97.7 78 20 113/78 96 Nasal Cannula 2.0 07/17/16 00:00 97.2 69 20 120/83 97 Nasal Cannula 2.0 07/17/16 00:00 92 07/16/16 23:00 69 16 108/60 100 Nasal Cannula 2.0 07/16/16 22:00 72 16 123/73 100 Nasal Cannula 2.0 07/16/16 21:00 68 16 123/69 100 Nasal Cannula 2.0 07/16/16 20:50 67 89/61 07/16/16 20:00 67 07/16/16 20:00 97.9 67 18 121/61 99 Nasal Cannula 2.0 07/16/16 19:00 70 20 88/50 100 Nasal Cannula 2.0 07/16/16 18:00 67 20 90/59 100 Nasal Cannula 2.0 07/16/16 17:00 66 20 86/49 100 Nasal Cannula 2.0 07/16/16 16:50 100 Nasal Cannula 2.0 28 07/16/16 16:49 Nasal Cannula 2.0 28 07/16/16 16:00 97.8 67 18 85/41 99 Nasal Cannula 2.0 07/16/16 16:00 68 07/16/16 15:04 68 20 91/60 100 Nasal Cannula 2.0 07/16/16 14:00 64 16 88/50 99 Nasal Cannula 2.0 07/16/16 13:00 66 17 91/54 99 Nasal Cannula 2.0 07/16/16 12:00 77 07/16/16 12:00 99.3 65 17 100/81 98 Nasal Cannula 2.0 07/16/16 11:04 98.4 75 18 96/64 98 Nasal Cannula 2.0 07/16/16 10:52 98.4 07/16/16 10:00 82 17 104/84 97 Nasal Cannula 2.0 07/16/16 09:56 80 150/66 07/16/16 09:55 150/66 Intake and Output 07/16/16 07/17/16 19:00 07:00 Intake Total 1755.0 ml 1184.0 ml Output Total 1080 ml 1840 ml Balance 675.0 ml -656.0 ml Free Water 20 ml IV Total 1715.0 ml 1124.0 ml Other 20 ml 60 ml Output Urine Total 1080 ml 1840 ml # Bowel Movements 2 1 Laboratory Tests 07/16/16 17:55: Urine Color Pale yellow, Urine Appearance Slightly cloudy, Urine pH 6.5, Urine Specific [place] 1.010, Urine Protein 1+H, Urine Glucose (UA) Negative, Urine Ketones Negative, Urine Occult Blood 4+H, Urine Nitrite Negative, Urine Bilirubin Negative, Urine Urobilinogen Normal, Urine Leukocyte Esterase 3+H, Urine RBC 0-2, Urine WBC TntcH, Urine Squamous Epithelial Cells Occasional, Urine Bacteria Few 07/17/16 04:15: White Blood Count 8.8, Red Blood Count 3.93L, Hemoglobin 12.1, Hematocrit 35.4L , Mean Corpuscular Volume 90, Mean Corpuscular Hemoglobin 30.8, Mean Corpuscular Hemoglobin Concent 34.2, Red Cell Distribution Width 14.0, Platelet Count 174, Mean Platelet Volume 8.8, Neutrophils (%) (Auto) 56.7, Lymphocytes (% ) (Auto) 31.5, Monocytes (%) (Auto) 5.4, Eosinophils (%) (Auto) 5.2H, Basophils (%) (Auto) 1.2, Sodium Level 135, Potassium Level 3.8, Chloride Level 104, Carbon Dioxide Level 15L, Anion Gap 16H, Blood Urea Nitrogen 8, Creatinine 0.9, Estimat Glomerular Filtration Rate , Glucose Level 90, Calcium Level 7.3L, Phosphorus Level 2.6 Height (Feet): 5 Height (Inches): 2.00 Weight (Pounds): 102 Objective General Appearance: WD/WN, lethargic, confused Neck: supple Cardiovascular: normal rate, regular rhythm Respiratory/Chest: lungs clear, normal breath sounds, no respiratory distress, no accessory muscle use Abdomen: normal bowel sounds, non tender, soft, no organomegaly Edema: no edema noted Arm (L), no edema noted Arm (R), no edema noted Leg (L), no edema noted Leg (R), no edema noted Pedal (L), no edema noted Pedal (R), no edema noted Generalized Neurologic: disoriented Skin: normal pigmentation, warm/dry HA FRANCIS Jul 17, 2016 09:08
--- NOTE | 2016-07-17 10:40 | Nephrology Progress Note ---
Assessment/Plan Problem List: (1) Pyelonephritis (2) Acute hypernatremia (3) Dehydration (4) Sepsis (5) MARCELLE (acute kidney injury) (6) Septic shock (7) Respiratory alkalosis (8) Hyponatremia (9) Hypokalemia Plan still needs iv rehydration, lab trend better, Na low and iv D5NS, improved, asked to starty tpn will start 2/3, npo now Subjective ROS Limited/Unobtainable: Yes Objective Objective Last 24 Hour Vital Signs Date Time Temp Pulse Resp B/P Pulse Ox O2 Delivery O2 Flow Rate FiO2 07/17/16 08:00 90 07/17/16 08:00 98.1 69 18 110/84 94 Nasal Cannula 2.0 07/17/16 04:00 97.7 71 20 132/68 97 Nasal Cannula 2.0 07/17/16 03:46 84 07/17/16 01:47 97.7 78 20 113/78 96 Nasal Cannula 2.0 07/17/16 00:00 97.2 69 20 120/83 97 Nasal Cannula 2.0 07/17/16 00:00 92 07/16/16 23:00 69 16 108/60 100 Nasal Cannula 2.0 07/16/16 22:00 72 16 123/73 100 Nasal Cannula 2.0 07/16/16 21:00 68 16 123/69 100 Nasal Cannula 2.0 07/16/16 20:50 67 89/61 07/16/16 20:00 67 07/16/16 20:00 97.9 67 18 121/61 99 Nasal Cannula 2.0 07/16/16 19:00 70 20 88/50 100 Nasal Cannula 2.0 07/16/16 18:00 67 20 90/59 100 Nasal Cannula 2.0 07/16/16 17:00 66 20 86/49 100 Nasal Cannula 2.0 07/16/16 16:50 100 Nasal Cannula 2.0 28 07/16/16 16:49 Nasal Cannula 2.0 28 07/16/16 16:00 97.8 67 18 85/41 99 Nasal Cannula 2.0 07/16/16 16:00 68 07/16/16 15:04 68 20 91/60 100 Nasal Cannula 2.0 07/16/16 14:00 64 16 88/50 99 Nasal Cannula 2.0 07/16/16 13:00 66 17 91/54 99 Nasal Cannula 2.0 07/16/16 12:00 77 07/16/16 12:00 99.3 65 17 100/81 98 Nasal Cannula 2.0 07/16/16 11:04 98.4 75 18 96/64 98 Nasal Cannula 2.0 07/16/16 10:52 98.4 Intake and Output 07/16/16 07/17/16 19:00 07:00 Intake Total 1755.0 ml 1184.0 ml Output Total 1080 ml 1840 ml Balance 675.0 ml -656.0 ml Free Water 20 ml IV Total 1715.0 ml 1124.0 ml Other 20 ml 60 ml Output Urine Total 1080 ml 1840 ml # Bowel Movements 2 1 Laboratory Tests 07/16/16 17:55: Urine Color Pale yellow, Urine Appearance Slightly cloudy, Urine pH 6.5, Urine Specific [place] 1.010, Urine Protein 1+H, Urine Glucose (UA) Negative, Urine Ketones Negative, Urine Occult Blood 4+H, Urine Nitrite Negative, Urine Bilirubin Negative, Urine Urobilinogen Normal, Urine Leukocyte Esterase 3+H, Urine RBC 0-2, Urine WBC TntcH, Urine Squamous Epithelial Cells Occasional, Urine Bacteria Few 07/17/16 04:15: White Blood Count 8.8, Red Blood Count 3.93L, Hemoglobin 12.1, Hematocrit 35.4L , Mean Corpuscular Volume 90, Mean Corpuscular Hemoglobin 30.8, Mean Corpuscular Hemoglobin Concent 34.2, Red Cell Distribution Width 14.0, Platelet Count 174, Mean Platelet Volume 8.8, Neutrophils (%) (Auto) 56.7, Lymphocytes (% ) (Auto) 31.5, Monocytes (%) (Auto) 5.4, Eosinophils (%) (Auto) 5.2H, Basophils (%) (Auto) 1.2, Sodium Level 135, Potassium Level 3.8, Chloride Level 104, Carbon Dioxide Level 15L, Anion Gap 16H, Blood Urea Nitrogen 8, Creatinine 0.9, Estimat Glomerular Filtration Rate , Glucose Level 90, Calcium Level 7.3L, Phosphorus Level 2.6 Height (Feet): 5 Height (Inches): 2.00 Weight (Pounds): 102 General Appearance: lethargic, confused EENT: normal ENT inspection Neck: normal alignment Cardiovascular: normal rate Respiratory/Chest: rhonchi - bilaterally Abdomen: soft, no organomegaly Extremities: trace edema Neurologic: motor weakness JILL GASPAR Jul 17, 2016 10:40
--- NOTE | 2016-07-17 11:15 | Diagnostic Imaging Report ---
Indication: Status post nasogastric tube placement Technique: Supine view of the abdomen Comparison: 125-17 Findings: Nasogastric tube now has its tip in the expected region of the gastric antrum, proximal port below the diaphragm, and the shaft and within the portion of the stomach that is above the diaphragm within a hiatal hernia. Bowel gas pattern is unremarkable is a Goldstein catheter. No unusual masses or calcifications Impression: Improved and now optimal position of nasogastric tube, as described. NILES nurse notified of this at the time of interpretation
--- NOTE | 2016-07-17 11:36 | Infectious Diseases Prog Note ---
Assessment/Plan Assessment/Plan antibiotics : vancomycin iv, zosyn A 1. klebsiella UTI s/p rx 2. shock resolved 3. respiratory failure resolved 4. renal failure improving 5. leucocytosis resolved 6. pneumonia P 1. continue vancomycin iv, zosyn 2. sputum culture 3. will follow up cultures Subjective ROS Limited/Unobtainable: Yes Allergies: Coded Allergies: No Known Allergies (Unverified , 04/18/12) Objective Vital Signs Last 24 Hour Vital Signs Date Time Temp Pulse Resp B/P Pulse Ox O2 Delivery O2 Flow Rate FiO2 07/17/16 08:00 90 07/17/16 08:00 98.1 69 18 110/84 94 Nasal Cannula 2.0 07/17/16 04:00 97.7 71 20 132/68 97 Nasal Cannula 2.0 07/17/16 03:46 84 07/17/16 01:47 97.7 78 20 113/78 96 Nasal Cannula 2.0 07/17/16 00:00 97.2 69 20 120/83 97 Nasal Cannula 2.0 07/17/16 00:00 92 07/16/16 23:00 69 16 108/60 100 Nasal Cannula 2.0 07/16/16 22:00 72 16 123/73 100 Nasal Cannula 2.0 07/16/16 21:00 68 16 123/69 100 Nasal Cannula 2.0 07/16/16 20:50 67 89/61 07/16/16 20:00 67 07/16/16 20:00 97.9 67 18 121/61 99 Nasal Cannula 2.0 07/16/16 19:00 70 20 88/50 100 Nasal Cannula 2.0 07/16/16 18:00 67 20 90/59 100 Nasal Cannula 2.0 07/16/16 17:00 66 20 86/49 100 Nasal Cannula 2.0 07/16/16 16:50 100 Nasal Cannula 2.0 28 07/16/16 16:49 Nasal Cannula 2.0 28 07/16/16 16:00 97.8 67 18 85/41 99 Nasal Cannula 2.0 07/16/16 16:00 68 07/16/16 15:04 68 20 91/60 100 Nasal Cannula 2.0 07/16/16 14:00 64 16 88/50 99 Nasal Cannula 2.0 07/16/16 13:00 66 17 91/54 99 Nasal Cannula 2.0 07/16/16 12:00 77 07/16/16 12:00 99.3 65 17 100/81 98 Nasal Cannula 2.0 Height (Feet): 5 Height (Inches): 2.00 Weight (Pounds): 102 Respiratory/Chest: rhonchi - bilaterally Cardiovascular: normal rate, regular rhythm, no gallop/murmur Abdomen: soft, non tender Extremities: no edema Microbiology Date/Time Source Procedure Growth Status 07/15/16 07:00 Blood Blood Culture - Preliminary NO GROWTH AFTER 24 HOURS Resulted 07/15/16 07:00 Blood Blood Culture - Preliminary NO GROWTH AFTER 24 HOURS Resulted 07/16/16 17:55 Indwelling Cath Urine Culture - Preliminary Resulted Laboratory Tests Test 07/16/16 17:55 07/17/16 04:15 07/17/16 11:15 Urine Color Pale yellow Urine Appearance Slightly cloudy Urine pH 6.5 (4.5-8.0) Urine Specific [place] 1.010 (1.005-1.035) Urine Protein 1+ (NEGATIVE) H Urine Glucose (UA) Negative (NEGATIVE) Urine Ketones Negative (NEGATIVE) Urine Occult Blood 4+ (NEGATIVE) H Urine Nitrite Negative (NEGATIVE) Urine Bilirubin Negative (NEGATIVE) Urine Urobilinogen Normal MG/DL (0.0-1.0) Urine Leukocyte Esterase 3+ (NEGATIVE) H Urine RBC 0-2 /HPF (0 - 2) Urine WBC Tntc /HPF (0 - 2) H Urine Squamous Epithelial Cells Occasional /LPF Urine Bacteria Few /HPF (NONE) White Blood Count 8.8 K/UL (4.8-10.8) Red Blood Count 3.93 M/UL (4.20-5.40) L Hemoglobin 12.1 G/DL (12.0-16.0) Hematocrit 35.4 % (37.0-47.0) L Mean Corpuscular Volume 90 FL (80-99) Mean Corpuscular Hemoglobin 30.8 PG (27.0-31.0) Mean Corpuscular Hemoglobin Concent 34.2 G/DL (32.0-36.0) Red Cell Distribution Width 14.0 % (11.6-14.8) Platelet Count 174 K/UL (150-450) Mean Platelet Volume 8.8 FL (6.5-10.1) Neutrophils (%) (Auto) 56.7 % (45.0-75.0) Lymphocytes (%) (Auto) 31.5 % (20.0-45.0) Monocytes (%) (Auto) 5.4 % (1.0-10.0) Eosinophils (%) (Auto) 5.2 % (0.0-3.0) H Basophils (%) (Auto) 1.2 % (0.0-2.0) Sodium Level 135 mEQ/L (135-145) Potassium Level 3.8 mEQ/L (3.4-4.9) Chloride Level 104 mEQ/L (98-107) Carbon Dioxide Level 15 mEQ/L (20-30) L Anion Gap 16 (5-15) H Blood Urea Nitrogen 8 mg/dL (7-23) Creatinine 0.9 mg/dL (0.5-0.9) Estimat Glomerular Filtration Rate mL/min (>60) Glucose Level 90 mg/dL (74-106) Calcium Level 7.3 mg/dL (8.6-10.2) L Phosphorus Level 2.6 mg/dL (2.5-4.8) Vancomycin Level Trough Pending DAMIAN GUZMAN Jul 17, 2016 11:36
[2016-07-17] MEDS: Vancomycin 500 MG in D5W 110 ML IVPB SCH (12:14)
[2016-07-17] MEDS ORDERED: D5NS 1,000 ML IV SCH ×2 (12:15)
--- NOTE | 2016-07-17 16:50 | General Progress Note ---
Assessment/Plan Assessment/Plan Assessment - dysphagia - hypotension - progressive anemia - hyponatremia - OBS - malnutrition --> TPN since surgery postponed - EGD shows large HH - Need surgical GT placement Recommendation - Await TPN - transfuse PRN - monitor labs - Free water restriction - NPO via oral route - Await surgery Subjective Allergies: Coded Allergies: No Known Allergies (Unverified , 04/18/12) Subjective out of ICU pt non communicative surgery postponed to next week D/w clinical staff anesthesiologist to get TPN tonight Objective Last 24 Hour Vital Signs Date Time Temp Pulse Resp B/P Pulse Ox O2 Delivery O2 Flow Rate FiO2 07/17/16 12:00 72 07/17/16 12:00 98.6 72 16 123/56 97 Nasal Cannula 2.0 07/17/16 08:00 90 07/17/16 08:00 98.1 69 18 110/84 94 Nasal Cannula 2.0 07/17/16 04:00 97.7 71 20 132/68 97 Nasal Cannula 2.0 07/17/16 03:46 84 07/17/16 01:47 97.7 78 20 113/78 96 Nasal Cannula 2.0 07/17/16 00:00 97.2 69 20 120/83 97 Nasal Cannula 2.0 07/17/16 00:00 92 07/16/16 23:00 69 16 108/60 100 Nasal Cannula 2.0 07/16/16 22:00 72 16 123/73 100 Nasal Cannula 2.0 07/16/16 21:00 68 16 123/69 100 Nasal Cannula 2.0 07/16/16 20:50 67 89/61 07/16/16 20:00 67 07/16/16 20:00 97.9 67 18 121/61 99 Nasal Cannula 2.0 07/16/16 19:00 70 20 88/50 100 Nasal Cannula 2.0 07/16/16 18:00 67 20 90/59 100 Nasal Cannula 2.0 07/16/16 17:00 66 20 86/49 100 Nasal Cannula 2.0 07/16/16 16:50 100 Nasal Cannula 2.0 28 07/16/16 16:49 Nasal Cannula 2.0 28 Intake and Output 07/16/16 07/17/16 19:00 07:00 Intake Total 1755.0 ml 1184.0 ml Output Total 1080 ml 1840 ml Balance 675.0 ml -656.0 ml Free Water 20 ml IV Total 1715.0 ml 1124.0 ml Other 20 ml 60 ml Output Urine Total 1080 ml 1840 ml # Bowel Movements 2 1 Laboratory Tests 07/16/16 17:55: Urine Color Pale yellow, Urine Appearance Slightly cloudy, Urine pH 6.5, Urine Specific [place] 1.010, Urine Protein 1+H, Urine Glucose (UA) Negative, Urine Ketones Negative, Urine Occult Blood 4+H, Urine Nitrite Negative, Urine Bilirubin Negative, Urine Urobilinogen Normal, Urine Leukocyte Esterase 3+H, Urine RBC 0-2, Urine WBC TntcH, Urine Squamous Epithelial Cells Occasional, Urine Bacteria Few 07/17/16 04:15: White Blood Count 8.8, Red Blood Count 3.93L, Hemoglobin 12.1, Hematocrit 35.4L , Mean Corpuscular Volume 90, Mean Corpuscular Hemoglobin 30.8, Mean Corpuscular Hemoglobin Concent 34.2, Red Cell Distribution Width 14.0, Platelet Count 174, Mean Platelet Volume 8.8, Neutrophils (%) (Auto) 56.7, Lymphocytes (% ) (Auto) 31.5, Monocytes (%) (Auto) 5.4, Eosinophils (%) (Auto) 5.2H, Basophils (%) (Auto) 1.2, Sodium Level 135, Potassium Level 3.8, Chloride Level 104, Carbon Dioxide Level 15L, Anion Gap 16H, Blood Urea Nitrogen 8, Creatinine 0.9, Estimat Glomerular Filtration Rate , Glucose Level 90, Calcium Level 7.3L, Phosphorus Level 2.6 07/17/16 11:15: Vancomycin Level Trough 10.0 Height (Feet): 5 Height (Inches): 2.00 Weight (Pounds): 102 Objective Thin WW NCAT, (+) OGT supple CTA RRR Soft Flat ND (+) contractures (+) OBS KALEE SERRATO Jul 17, 2016 16:50
[2016-07-17] MEDS: TPN IV SCH (20:58)
[2016-07-17] MEDS: FAT EMULSION 20% IV SCH (20:58)
[2016-07-17] MEDS ORDERED: Dextrose 10% 1,000 ML IV PRN (21:00)
[2016-07-17] MEDS ORDERED: Phytonadione 10 mg/mL 1ml amp SUBQ SCH ×2 (21:00)
[2016-07-17] MEDS ORDERED: Fat Emulsion Iv 20% 250 ML IV SCH ×2 (21:00)
[2016-07-17] MEDS ORDERED: TPN IV SCH (21:00)
[2016-07-17] MEDS: NovoLOG Insulin Flexpen SUBQ SCH (21:00)
[2016-07-17] MEDS ORDERED: NovoLOG Insulin Flexpen SUBQ SCH (21:00)
[2016-07-17] MEDS ORDERED: Tpn 2,000 ML IV SCH (21:00)
[2016-07-17] MEDS ORDERED: FAT EMULSION 20% IV SCH (21:00)
[2016-07-17] MEDS: Atorvastatin 20mg tab ORAL SCH (21:17)
[2016-07-18] VITALS: BP 126/80
[2016-07-18] MEDS ORDERED: D5NS 1,000 ML IV SCH
[2016-07-18] MEDS: NovoLOG Insulin Flexpen SUBQ SCH ×5 (00:22→23:42)
--- NOTE | 2016-07-18 01:27 | Progress Note ---
DATE: 07/17/2016 CARDIOLOGY PROGRESS NOTE SUBJECTIVE: The patient remains withdrawn, lethargic and minimally interactive. Blood pressure parameters have improved. OBJECTIVE: VITAL SIGNS: Blood pressure 113/7, pulse 78, and respirations 20. She is afebrile. LUNGS: Bilateral breath sounds. HEART: Regular rhythm and rate. Normal S1 and S2. ABDOMEN: Soft. NG tube in place. EXTREMITIES: No edema. Central line site is clean and dry. LABORATORY DATA: White count 8.8 and hemoglobin 12.1. Cortisol level was 11. Potassium 3.8, sodium 135, bicarbonate 15, BUN 8, and creatinine 0.9. Phosphorus is 2.6. IMPRESSION: 1. Urinary tract infection. 2. Sepsis. 3. Shock. 4. Hypovolemia. 5. Hyponatremia, resolved. 6. Metabolic acidosis, improved. 7. No signs of adrenocortical insufficiency. 8. Hiatal hernia. 9. Dysphagia. 10. Failed percutaneous endoscopic gastrostomy placement due to hiatal hernia. 11. Ischemic cardiomyopathy. 12. Acute and chronic diastolic congestive heart failure. PLAN: 1. TPN for now. 2. Surgical G-tube to follow. 3. Broad spectrum antibiotics. 4. Saline hydration. 5. Advanced anti-failure regimen if blood pressure parameters remained stable. Yohan Corbett M.D. DR: AMMY JOB#: [id number] CC:
[2016-07-18 04:00] VITALS: BP 118/48
[2016-07-18] MEDS: Levothyroxine 125mcg tab ORAL SCH (06:33)
[2016-07-18] MEDS: Piperacillin/Tazobactam 3.375 GM in D5W 110 ML IVPB SCH ×3 (06:33→22:20)
--- NOTE | 2016-07-18 07:01 | General Progress Note ---
Assessment/Plan Problem List: (1) Hypothyroid ICD Codes: E03.9 - Hypothyroid SNOMED: 47208360 (2) Septic shock ICD Codes: A41.9 - Sepsis, unspecified organism; R65.21 - Severe sepsis with septic shock SNOMED: 28699275 (3) Acute renal failure ICD Codes: N17.9 - Acute kidney failure, unspecified SNOMED: 42312707 Qualifiers: Qualified Codes: N17.0 - Acute kidney failure with tubular necrosis (4) Sepsis ICD Codes: A41.9 - Sepsis, unspecified organism SNOMED: 98156658 (5) Altered mental status ICD Codes: R41.82 - Altered mental status, unspecified SNOMED: 925038769 Qualifiers: Qualified Codes: R41.0 - Disorientation, unspecified (6) Acute delirium ICD Codes: R41.0 - Acute delirium SNOMED: 2059448 (7) UTI (lower urinary tract infection) ICD Codes: N39.0 - UTI (lower urinary tract infection) SNOMED: 9152689 Status: deteriorating Assessment/Plan tpn iv abx per id follow up culturesdc ogt- ?affecting breathing tpn iv steroids resp rx check cxr Subjective ROS Limited/Unobtainable: No Constitutional: Reports: malaise, weakness HEENT: Reports: no symptoms Cardiovascular: Reports: no symptoms Respiratory: Reports: cough, shortness of breath, wheezing Gastrointestinal/Abdominal: Reports: no symptoms Genitourinary: Reports: no symptoms Neurologic/Psychiatric: Reports: pre-existing deficit Endocrine: Reports: no symptoms Hematologic/Lymphatic: Reports: no symptoms Allergies: Coded Allergies: No Known Allergies (Unverified , 04/18/12) All Systems: reviewed and negative except above Subjective started on tpn now with wheezing and sob. +ogt. Objective Last 24 Hour Vital Signs Date Time Temp Pulse Resp B/P Pulse Ox O2 Delivery O2 Flow Rate FiO2 07/18/16 04:00 98.4 101 32 118/48 99 Nasal Cannula 2.0 07/18/16 03:51 86 07/18/16 00:00 97.9 84 28 126/80 93 Nasal Cannula 2.0 07/17/16 23:33 78 07/17/16 22:41 Nasal Cannula 2.0 28 07/17/16 22:41 98 Nasal Cannula 2.0 28 07/17/16 20:00 97.6 81 20 108/64 98 Nasal Cannula 2.0 07/17/16 20:00 74 07/17/16 16:00 97.3 71 21 98/54 100 Nasal Cannula 2.0 07/17/16 16:00 82 07/17/16 12:00 72 07/17/16 12:00 98.6 72 16 123/56 97 Nasal Cannula 2.0 07/17/16 08:00 90 07/17/16 08:00 98.1 69 18 110/84 94 Nasal Cannula 2.0 Intake and Output 07/17/16 07/18/16 18:59 06:59 Intake Total 707.5 ml 442.502 ml Output Total 450 ml 1000 ml Balance 257.5 ml -557.498 ml IV Total 677.5 ml 442.502 ml Other 30 ml Output Urine Total 450 ml 1000 ml # Bowel Movements 2 Laboratory Tests 07/17/16 11:15: Vancomycin Level Trough 10.0 Height (Feet): 5 Height (Inches): 2.00 Weight (Pounds): 102 Objective General Appearance: WD/WN, lethargic, confused Neck: supple Cardiovascular: normal rate, regular rhythm Respiratory/Chest: diffuse wheezing Abdomen: normal bowel sounds, non tender, soft, no organomegaly Edema: no edema noted Arm (L), no edema noted Arm (R), no edema noted Leg (L), no edema noted Leg (R), no edema noted Pedal (L), no edema noted Pedal (R), no edema noted Generalized Neurologic: disoriented Skin: normal pigmentation, warm/dry HA FRANCIS Jul 18, 2016 07:01
[2016-07-18] MEDS ORDERED: DuoNeb 0.5-3(2.5)mg/3ml neb HHN PRN (07:15)
[2016-07-18 08:00] VITALS: BP 107/64
[2016-07-18 08:14] LABS: ABG PCO2 23.6 mmHg (35.0-45.0)
[2016-07-18 08:15] LABS: ABG ALLEN TEST POSITIVE; ABG BASE EXCESS -4.7
[2016-07-18] MEDS: Pantoprazole Inj IVP SCH (08:34)
[2016-07-18] MEDS: Solu-MEDROL 125mg Inj IVP SCH ×3 (08:34→22:20)
[2016-07-18] MEDS: Aspirin Baby 81mg ORAL SCH (08:37)
[2016-07-18 08:40] LABS: BASOPHILS % (AUTO) 0.6 % (0.0-2.0); EOSINOPHILS % (AUTO) 1.9 % (0.0-3.0); LYMPHOCYTES % (AUTO) 37.8 % (20.0-45.0); MEAN CORPUSCULAR HEMOGLOBIN 30.1 PG (27.0-31.0); MEAN CORPUSCULAR HGB CONC 34.2 G/DL (32.0-36.0); MEAN CORPUSCULAR VOLUME 88 FL (80-99); MEAN PLATELET VOLUME 8.6 FL (6.5-10.1); NEUTROPHILS % (AUTO) 56.7 % (45.0-75.0); PLATELET COUNT 200 K/UL (150-450); RED BLOOD COUNT 4.22 M/UL (4.20-5.40); RED CELL DISTRIBUTION WIDTH 13.6 % (11.6-14.8); WHITE BLOOD COUNT 14.7 K/UL (4.8-10.8)
[2016-07-18 08:54] LABS: ALANINE AMINOTRANSFERASE 13 U/L (3-33); ALBUMIN/GLOBULIN RATIO 0.6 (1.0-2.7); ANION GAP 19 (5-15); ASPARTATE AMINO TRANSFERASE 32 U/L (5-40); CALCIUM 7.6 mg/dL (8.6-10.2); CARBON DIOXIDE 17 mEQ/L (20-30); CHLORIDE 96 mEQ/L (98-107); CREATININE 0.8 mg/dL (0.5-0.9); HEMOLYSIS 6; POTASSIUM 2.9 mEQ/L (3.4-4.9); SODIUM 132 mEQ/L (135-145); TOTAL PROTEIN 5.8 g/dL (6.6-8.7)
[2016-07-18 09:17] LABS: REFLEX LACTIC ACID YES OR NO YES
[2016-07-18] MEDS ORDERED: NS 275ml ONE ×2 (10:47→14:36)
[2016-07-18] MEDS ORDERED: Tubing Blood Filter IV ONE (10:47)
[2016-07-18] MEDS ORDERED: D5NS 1000ml IV ONE ×2 (10:47→14:36)
--- NOTE | 2016-07-18 11:17 | Infectious Diseases Prog Note ---
Assessment/Plan Assessment/Plan antibiotics : vancomycin iv, zosyn A 1. gram negative UTI 2. shock resolved 3. respiratory failure resolved 4. renal failure improving 5. leucocytosis resolved 6. pneumonia P 1. continue vancomycin iv, zosyn 2. will follow up cultures Subjective ROS Limited/Unobtainable: Yes Allergies: Coded Allergies: No Known Allergies (Unverified , 04/18/12) Objective Vital Signs Last 24 Hour Vital Signs Date Time Temp Pulse Resp B/P Pulse Ox O2 Delivery O2 Flow Rate FiO2 07/18/16 08:00 99.1 102 20 107/64 97 Nasal Cannula 3.0 07/18/16 04:00 98.4 101 32 118/48 99 Nasal Cannula 2.0 07/18/16 03:51 86 07/18/16 00:00 97.9 84 28 126/80 93 Nasal Cannula 2.0 07/17/16 23:33 78 07/17/16 22:41 Nasal Cannula 2.0 28 07/17/16 22:41 98 Nasal Cannula 2.0 28 07/17/16 20:00 97.6 81 20 108/64 98 Nasal Cannula 2.0 07/17/16 20:00 74 07/17/16 16:00 97.3 71 21 98/54 100 Nasal Cannula 2.0 07/17/16 16:00 82 07/17/16 12:00 72 07/17/16 12:00 98.6 72 16 123/56 97 Nasal Cannula 2.0 Height (Feet): 5 Height (Inches): 2.00 Weight (Pounds): 102 Respiratory/Chest: rhonchi - bilaterally - decreasing Cardiovascular: normal rate, regular rhythm, no gallop/murmur Abdomen: soft, non tender Extremities: no edema, other - right IJ catheter Microbiology Date/Time Source Procedure Growth Status 07/18/16 05:00 Sputum Gram Stain - Final Resulted 07/18/16 05:00 Sputum Sputum Culture Pending Resulted 07/16/16 17:55 Indwelling Cath Urine Culture - Preliminary Gram Negative Malachi Resulted Laboratory Tests Test 07/18/16 07:01 07/18/16 08:15 07/18/16 10:50 Arterial Blood pH 7.475 (7.350-7.450) Arterial Blood Partial Pressure CO2 23.6 mmHg (35.0-45.0) *L Arterial Blood Partial Pressure O2 79.2 mmHg (75.0-100.0) Arterial Blood HCO3 17.0 mmol/L (22.0-26.0) L Arterial Blood Oxygen Saturation 96.1 % (92.0-98.0) Arterial Blood Base Excess -4.7 Pool Test Positive White Blood Count 14.7 K/UL (4.8-10.8) #H Red Blood Count 4.22 M/UL (4.20-5.40) Hemoglobin 12.7 G/DL (12.0-16.0) Hematocrit 37.1 % (37.0-47.0) Mean Corpuscular Volume 88 FL (80-99) Mean Corpuscular Hemoglobin 30.1 PG (27.0-31.0) Mean Corpuscular Hemoglobin Concent 34.2 G/DL (32.0-36.0) Red Cell Distribution Width 13.6 % (11.6-14.8) Platelet Count 200 K/UL (150-450) Mean Platelet Volume 8.6 FL (6.5-10.1) Neutrophils (%) (Auto) 56.7 % (45.0-75.0) Lymphocytes (%) (Auto) 37.8 % (20.0-45.0) Monocytes (%) (Auto) 3.0 % (1.0-10.0) Eosinophils (%) (Auto) 1.9 % (0.0-3.0) Basophils (%) (Auto) 0.6 % (0.0-2.0) Sodium Level 132 mEQ/L (135-145) L Potassium Level 2.9 mEQ/L (3.4-4.9) L Chloride Level 96 mEQ/L (98-107) L Carbon Dioxide Level 17 mEQ/L (20-30) L Anion Gap 19 (5-15) H Blood Urea Nitrogen 6 mg/dL (7-23) L Creatinine 0.8 mg/dL (0.5-0.9) Estimat Glomerular Filtration Rate mL/min (>60) Glucose Level 142 mg/dL (74-106) H Lactic Acid Level 2.90 mmol/L (0.66-2.22) H Pending Calcium Level 7.6 mg/dL (8.6-10.2) L Total Bilirubin 0.4 mg/dL (0.0-1.2) Aspartate Amino Transf (AST/SGOT) 32 U/L (5-40) Alanine Aminotransferase (ALT/SGPT) 13 U/L (3-33) Alkaline Phosphatase 70 U/L (35-104) Total Protein 5.8 g/dL (6.6-8.7) L Albumin 2.2 g/dL (3.5-5.2) L Globulin 3.6 g/dL Albumin/Globulin Ratio 0.6 (1.0-2.7) L DAMIAN GUZMAN Jul 18, 2016 11:17
[2016-07-18] MEDS: Vancomycin 500 MG in D5W 110 ML IVPB SCH (11:47)
[2016-07-18 12:00] VITALS: BP 106/62
--- NOTE | 2016-07-18 14:26 | Nephrology Progress Note ---
Assessment/Plan Assessment 1) S/p MARCELLE 2) No CHF 3) Malnutrition, unable to put NG T in place 4) Hypokalemia Plan: Will continue TPN replete K+ Will need PEG Subjective Subjective She is non communicative, started on TPN, needs Gt placement, K+ is 2.9 Objective Objective Last 24 Hour Vital Signs Date Time Temp Pulse Resp B/P Pulse Ox O2 Delivery O2 Flow Rate FiO2 07/18/16 12:00 99.0 97 18 106/62 96 Nasal Cannula 3.0 07/18/16 12:00 98 07/18/16 08:00 139 07/18/16 08:00 99.1 102 20 107/64 97 Nasal Cannula 3.0 07/18/16 04:00 98.4 101 32 118/48 99 Nasal Cannula 2.0 07/18/16 03:51 86 07/18/16 00:00 97.9 84 28 126/80 93 Nasal Cannula 2.0 07/17/16 23:33 78 07/17/16 22:41 Nasal Cannula 2.0 28 07/17/16 22:41 98 Nasal Cannula 2.0 28 07/17/16 20:00 97.6 81 20 108/64 98 Nasal Cannula 2.0 07/17/16 20:00 74 07/17/16 16:00 97.3 71 21 98/54 100 Nasal Cannula 2.0 07/17/16 16:00 82 Intake and Output 07/17/16 07/18/16 19:00 07:00 Intake Total 595.0 ml 664.170 ml Output Total 450 ml 1000 ml Balance 145.0 ml -335.830 ml IV Total 565.0 ml 664.170 ml Other 30 ml Output Urine Total 450 ml 1000 ml # Bowel Movements 2 Laboratory Tests 07/18/16 07:01: Arterial Blood pH 7.475H, Arterial Blood Partial Pressure CO2 23.6*L, Arterial Blood Partial Pressure O2 79.2, Arterial Blood HCO3 17.0L, Arterial Blood Oxygen Saturation 96.1, Arterial Blood Base Excess -4.7, Pool Test Positive 07/18/16 08:15: White Blood Count 14.7#H, Red Blood Count 4.22, Hemoglobin 12.7, Hematocrit 37.1 , Mean Corpuscular Volume 88, Mean Corpuscular Hemoglobin 30.1, Mean Corpuscular Hemoglobin Concent 34.2, Red Cell Distribution Width 13.6, Platelet Count 200, Mean Platelet Volume 8.6, Neutrophils (%) (Auto) 56.7, Lymphocytes (% ) (Auto) 37.8, Monocytes (%) (Auto) 3.0, Eosinophils (%) (Auto) 1.9, Basophils ( %) (Auto) 0.6, Sodium Level 132L, Potassium Level 2.9L, Chloride Level 96L, Carbon Dioxide Level 17L, Anion Gap 19H, Blood Urea Nitrogen 6L, Creatinine 0.8 , Estimat Glomerular Filtration Rate , Glucose Level 142H, Lactic Acid Level 2.90H, Calcium Level 7.6L, Total Bilirubin 0.4, Aspartate Amino Transf (AST/SGOT ) 32, Alanine Aminotransferase (ALT/SGPT) 13, Alkaline Phosphatase 70, Total Protein 5.8L, Albumin 2.2L, Globulin 3.6, Albumin/Globulin Ratio 0.6L 07/18/16 10:50: Lactic Acid Level 2.30H Height (Feet): 5 Height (Inches): 2.00 Weight (Pounds): 102 General Appearance: lethargic, confused EENT: PERRL/EOMI Neck: non-tender, supple Cardiovascular: normal rate, regular rhythm, no JVD Respiratory/Chest: rhonchi - left, rhonchi - right Abdomen: non tender, soft Extremities: other - Contracted LE's Neurologic: other - Lethargic SKYLAR FRIEDMAN Jul 18, 2016 14:26
[2016-07-18] MEDS ORDERED: Tubing IV Secondary IV ONE (14:36)
[2016-07-18 16:31] VITALS: BP 104/63
[2016-07-18 20:00] VITALS: BP 110/64
[2016-07-18] MEDS: TPN IV SCH (20:51)
[2016-07-18] MEDS: FAT EMULSION 20% IV SCH (20:51)
[2016-07-18] MEDS: Atorvastatin 20mg tab ORAL SCH (20:52)
[2016-07-19] VITALS: BP 133/65
--- NOTE | 2016-07-19 03:58 | Progress Note ---
DATE: 07/10/2016 CARDIOLOGY PROGRESS NOTE SUBJECTIVE: The patient remains weak and lethargic. She is unable to tolerate oral intake. PEG could not be placed due to hiatal hernia and position of her stomach. Monitored sinus and sinus tachycardia. OBJECTIVE: GENERAL: Afebrile. VITAL SIGNS: Blood pressure 94/55, heart rate 94, and respiratory rate 20. LUNGS: Bilateral breath sounds. HEART: Regular rhythm and rate. Normal S1 and S2. ABDOMEN: Soft. EXTREMITIES: With no edema. LABORATORY DATA: White count 11.9 and hemoglobin 9.5. Pro-natriuretic peptide is 2137. Albumin is 2.5. IMPRESSION: 1. Sepsis with shock due to urinary tract infection, improved. 2. Acute on chronic renal failure, resolving. 3. Dehydration. 4. Hypernatremia, recovered. 5. Ischemic cardiomyopathy with stable angina. 6. Acute on chronic diastolic congestive heart failure. 7. Hypothyroidism on replacement therapy. 8. Dysphagia. 9. Severe protein-calorie malnutrition. PLAN: 1. Hydration and G-tube for nutrition and medications. 2. Surgical G-tube to follow. 3. Monitor volume status with diuresis as periodically and adjustment of IV fluids accordingly. 4. Remains high risk. Yohan Corbett M.D. DR: AMMY JOB#: [id number] CC:
--- NOTE | 2016-07-19 03:58 | Progress Note ---
DATE: 07/11/2016 CARDIOLOGY PROGRESS NOTE SUBJECTIVE: The patient remains weak and withdrawn. Awaiting surgical G-tube. Monitored sinus, sinus tachycardia and occasional PACs. OBJECTIVE: VITAL SIGNS: Blood pressure 103/55, heart rate 93, respiratory rate 16, and afebrile. LUNGS: Bilateral breath sounds. No rales. HEART: Regular rhythm and rate. Normal S1 and S2. ABDOMEN: Soft. EXTREMITIES: Trace edema. LABORATORY DATA: No laboratories today. IMPRESSION: 1. Dysphagia. 2. Severe protein-calorie malnutrition. 3. Hypokalemia status post replacement therapy. 4. Recovered shock due to sepsis and urinary tract infection. 5. Acute and chronic diastolic congestive heart failure. 6. Ischemic cardiomyopathy. 7. Hiatal hernia restricting percutaneous endoscopic gastrostomy. PLAN: 1. IV fluids and G-tube feedings. 2. Await surgical G-tube. 3. Adjust IV fluids. 4. Periodic diuresis. 5. Replace potassium. 6. Check magnesium. 7. Further recommendations to follow. Yohan Corbett M.D. DR: AMMY JOB#: [id number] CC:
[2016-07-19 04:00] VITALS: BP 120/78
--- NOTE | 2016-07-19 04:07 | Progress Note ---
DATE: 07/18/2016 CARDIOLOGY PROGRESS NOTE SUBJECTIVE: The patient's condition is worsening. She is started on TPN. She is noncommunicative. OBJECTIVE: VITAL SIGNS: Blood pressure is tenuous 106/62, heart rate 97, respiratory rate 18, and temperature 99 degrees. GENERAL: Withdrawn and lethargic. LUNGS: Bilateral breath sounds. HEART: Regular rhythm and rate. Normal S1 and S2 with a fourth heart sound. ABDOMEN: Soft. EXTREMITIES: Trace edema noted. LABORATORY DATA: White count is 14.7 and hemoglobin 12.7. Urine culture is gram-negative rods. Sodium 132, potassium 2.9, bicarbonate 17, BUN 6, and creatinine 0.8. Albumin is 2.2. Lactic acid is 2.3. IMPRESSION: 1. Severe protein-calorie malnutrition. 2. Lactic acidosis. 3. Sepsis status post shock. 4. Hypokalemia. 5. Ischemic cardiomyopathy. 6. Acute and chronic diastolic congestive heart failure. 7. Condition remains critical. PLAN: 1. Antibiotics per Infectious Disease regional engagement consultant. 2. Hydration. 3. Monitor acid-base parameters. 4. Continue TPN. 5. Check magnesium. 6. DVT and stress ulcer prophylaxis. Yohan Corbett M.D. DR: AMMY JOB#: [id number] CC:
[2016-07-19] MEDS: Solu-MEDROL 125mg Inj IVP SCH ×3 (05:45→22:22)
[2016-07-19] MEDS: NovoLOG Insulin Flexpen SUBQ SCH ×3 (05:48→17:37)
[2016-07-19] MEDS: Piperacillin/Tazobactam 3.375 GM in D5W 110 ML IVPB SCH ×3 (05:51→22:22)
[2016-07-19 06:20] LABS: BASOPHILS % (AUTO) 0.3 % (0.0-2.0); LYMPHOCYTES % (AUTO) 14.3 % (20.0-45.0); MEAN CORPUSCULAR HEMOGLOBIN 30.2 PG (27.0-31.0); MEAN CORPUSCULAR HGB CONC 34.2 G/DL (32.0-36.0); MEAN CORPUSCULAR VOLUME 88 FL (80-99); MEAN PLATELET VOLUME 8.8 FL (6.5-10.1); NEUTROPHILS % (AUTO) 82.4 % (45.0-75.0); PLATELET COUNT 171 K/UL (150-450); RED BLOOD COUNT 3.77 M/UL (4.20-5.40); RED CELL DISTRIBUTION WIDTH 13.9 % (11.6-14.8); WHITE BLOOD COUNT 13.1 K/UL (4.8-10.8)
[2016-07-19 06:42] LABS: ALANINE AMINOTRANSFERASE 11 U/L (3-33); ALBUMIN/GLOBULIN RATIO 0.5 (1.0-2.7); ANION GAP 15 (5-15); ASPARTATE AMINO TRANSFERASE 20 U/L (5-40); CALCIUM 7.7 mg/dL (8.6-10.2); CARBON DIOXIDE 19 mEQ/L (20-30); CHLORIDE 99 mEQ/L (98-107); CREATININE 0.7 mg/dL (0.5-0.9); HEMOLYSIS 6; MAGNESIUM 1.6 mg/dL (1.7-2.5); POTASSIUM 3.8 mEQ/L (3.4-4.9); SODIUM 133 mEQ/L (135-145); TOTAL PROTEIN 5.6 g/dL (6.6-8.7)
[2016-07-19] MEDS: Aspirin Baby 81mg ORAL SCH (08:51)
[2016-07-19 09:00] VITALS: BP 133/65
[2016-07-19] MEDS: Pantoprazole Inj IVP SCH (09:06)
[2016-07-19] MEDS ORDERED: NS 275ml ONE (09:38)
[2016-07-19] MEDS ORDERED: Tubing IV Secondary IV ONE (09:38)
--- NOTE | 2016-07-19 10:37 | Infectious Diseases Prog Note ---
Assessment/Plan Assessment/Plan A 1. Sepsis 2. UTI 4. Anemia 5. Dysphagia 6. leucocytosis resolved 7. Atelectasis P 1. Continue Zosyn & Vancomycin Subjective ROS Limited/Unobtainable: Yes Allergies: Coded Allergies: No Known Allergies (Unverified , 04/18/12) Objective Vital Signs Last 24 Hour Vital Signs Date Time Temp Pulse Resp B/P Pulse Ox O2 Delivery O2 Flow Rate FiO2 07/19/16 04:00 68 07/19/16 04:00 97.5 80 28 120/78 96 Nasal Cannula 2.0 07/19/16 00:00 67 07/19/16 00:00 97.5 68 24 133/65 97 Nasal Cannula 2.0 07/18/16 20:00 97.9 67 24 110/64 98 Nasal Cannula 2.0 07/18/16 19:06 97 07/18/16 19:00 Nasal Cannula 2.0 28 07/18/16 19:00 97 Nasal Cannula 2.0 28 07/18/16 16:31 99.0 88 24 104/63 98 Nasal Cannula 2.0 07/18/16 16:00 85 07/18/16 12:00 99.0 97 18 106/62 96 Nasal Cannula 3.0 07/18/16 12:00 98 Height (Feet): 5 Height (Inches): 2.00 Weight (Pounds): 102 General Appearance: no acute distress HEENT: mucous membranes moist Respiratory/Chest: lungs clear, other - O2 by cannula Abdomen: soft, non tender Extremities: no edema, other - PICC line Neurologic/Psychiatric: unresponsiveness Microbiology Date/Time Source Procedure Growth Status 07/18/16 05:00 Sputum Gram Stain - Final Resulted 07/18/16 05:00 Sputum Sputum Culture Pending Resulted 07/16/16 17:55 Indwelling Cath Urine Culture - Final Pseudomonas Aeruginosa Escherichia Coli Complete Laboratory Tests Test 07/18/16 10:50 07/19/16 05:45 Lactic Acid Level 2.30 mmol/L (0.66-2.22) H 1.50 mmol/L (0.66-2.22) White Blood Count 13.1 K/UL (4.8-10.8) H Red Blood Count 3.77 M/UL (4.20-5.40) L Hemoglobin 11.4 G/DL (12.0-16.0) L Hematocrit 33.3 % (37.0-47.0) L Mean Corpuscular Volume 88 FL (80-99) Mean Corpuscular Hemoglobin 30.2 PG (27.0-31.0) Mean Corpuscular Hemoglobin Concent 34.2 G/DL (32.0-36.0) Red Cell Distribution Width 13.9 % (11.6-14.8) Platelet Count 171 K/UL (150-450) Mean Platelet Volume 8.8 FL (6.5-10.1) Neutrophils (%) (Auto) 82.4 % (45.0-75.0) H Lymphocytes (%) (Auto) 14.3 % (20.0-45.0) L Monocytes (%) (Auto) 3.0 % (1.0-10.0) Eosinophils (%) (Auto) 0.0 % (0.0-3.0) Basophils (%) (Auto) 0.3 % (0.0-2.0) Sodium Level 133 mEQ/L (135-145) L Potassium Level 3.8 mEQ/L (3.4-4.9) Chloride Level 99 mEQ/L (98-107) Carbon Dioxide Level 19 mEQ/L (20-30) L Anion Gap 15 (5-15) Blood Urea Nitrogen 8 mg/dL (7-23) Creatinine 0.7 mg/dL (0.5-0.9) Estimat Glomerular Filtration Rate mL/min (>60) Glucose Level 212 mg/dL (74-106) H Calcium Level 7.7 mg/dL (8.6-10.2) L Magnesium Level 1.6 mg/dL (1.7-2.5) L Total Bilirubin 0.2 mg/dL (0.0-1.2) Aspartate Amino Transf (AST/SGOT) 20 U/L (5-40) Alanine Aminotransferase (ALT/SGPT) 11 U/L (3-33) Alkaline Phosphatase 59 U/L (35-104) Total Protein 5.6 g/dL (6.6-8.7) L Albumin 2.0 g/dL (3.5-5.2) L Globulin 3.6 g/dL Albumin/Globulin Ratio 0.5 (1.0-2.7) L Current Medications Medications (Trade) Dose Ordered Sig/Trip Route PRN Reason Start Time Stop Time Status Last Admin Dose Admin Acetaminophen (Tylenol) 650 mg Q4H PRN NG Prn Headache/Temp > 101 07/16/16 23:34 08/15/16 23:33 Albuterol/ Ipratropium (DuoNeb 0.5-3(2.5)mg/3ml) 3 ml Q4H PRN HHN Shortness of Breath 07/18/16 07:15 07/23/16 07:14 Aspirin (ASA) 81 mg DAILY ORAL 07/17/16 09:00 08/16/16 08:59 07/17/16 08:30 Atorvastatin Calcium (Lipitor) 20 mg BEDTIME ORAL 07/17/16 21:00 08/16/16 20:59 07/17/16 21:17 Dextrose 1,000 ml @ 0 mls/hr Q24H PRN IV TPN interrupted or unavailable 07/16/16 23:35 08/15/16 23:34 Dextrose (Dextrose 50%) STAT PRN IV Hypoglycemia 07/17/16 17:30 08/16/16 17:29 Fat Emulsion Intravenous/Amino Acids/ Electrolytes/ Dextrose (Intralipids/Tpn) 1,330 ml @ 55.417 mls/ hr Q24H IV 07/17/16 21:00 08/16/16 20:59 07/18/16 20:51 Insulin Aspart (NovoLOG) Q6HR SUBQ 07/17/16 21:00 08/16/16 20:59 07/19/16 05:48 Levothyroxine Sodium (Synthroid) 100 mcg DAILY IV 07/19/16 09:00 08/18/16 08:59 07/19/16 09:06 Methylprednisolone Sodium Succinate (Solu-MEDROL) 60 mg EVERY 8 HOURS IVP 07/18/16 08:00 08/17/16 07:59 07/19/16 05:45 Pantoprazole (Protonix) 40 mg DAILY IVP 07/17/16 09:00 08/16/16 08:59 07/19/16 09:06 Piperacillin Sod/ Tazobactam Sod 3.375 gm/Dextrose 110 ml @ 27.5 mls/hr EVERY 8 HOURS IVPB 07/17/16 06:00 07/19/16 13:59 07/19/16 05:51 Vancomycin HCl 1 ea 1 ea DAILY PRN MISC Per rx protocol 07/17/16 09:00 08/16/16 08:59 Vancomycin HCl/ Dextrose (Vancomycin/D5W) 110 ml @ 110 mls/hr Q24H IVPB 07/17/16 12:00 07/20/16 11:59 07/18/16 11:47 JAMEEL TRIPATHI Jul 19, 2016 10:37
[2016-07-19] MEDS: Vancomycin 500 MG in D5W 110 ML IVPB SCH (11:04)
[2016-07-19 12:00] VITALS: BP 114/55
--- NOTE | 2016-07-19 15:26 | Nephrology Progress Note ---
Assessment/Plan Assessment 1) S/p MARCELLE 2) No CHF 3) Malnutrition, unable to put NG T in place 4) Hypokalemia 5) hypomagnesemia Plan: Will continue TPN increase K+ to 60 mEQ in TPN Will need PEG Replete Mg++ Subjective Subjective She is doing status quo, no distress, Mag is 1.6, K+ i sup to 3.8, still on TPN, Objective Objective Last 24 Hour Vital Signs Date Time Temp Pulse Resp B/P Pulse Ox O2 Delivery O2 Flow Rate FiO2 07/19/16 12:00 75 07/19/16 12:00 97.2 81 20 114/55 97 Nasal Cannula 3.0 07/19/16 09:00 97.0 78 16 133/65 99 Nasal Cannula 2.5 07/19/16 08:00 70 07/19/16 06:55 96 Nasal Cannula 2.0 28 07/19/16 06:55 Nasal Cannula 2.0 28 07/19/16 04:00 68 07/19/16 04:00 97.5 80 28 120/78 96 Nasal Cannula 2.0 07/19/16 00:00 67 07/19/16 00:00 97.5 68 24 133/65 97 Nasal Cannula 2.0 07/18/16 20:00 97.9 67 24 110/64 98 Nasal Cannula 2.0 07/18/16 19:06 97 07/18/16 19:00 Nasal Cannula 2.0 28 07/18/16 19:00 97 Nasal Cannula 2.0 28 07/18/16 16:31 99.0 88 24 104/63 98 Nasal Cannula 2.0 07/18/16 16:00 85 Intake and Output 07/18/16 07/19/16 19:00 07:00 Intake Total 1134.936 ml 636.4 ml Output Total 650 ml 850 ml Balance 484.936 ml -213.6 ml IV Total 1134.936 ml 636.4 ml Output Urine Total 650 ml 850 ml # Bowel Movements 1 1 Laboratory Tests 07/19/16 05:45: White Blood Count 13.1H, Red Blood Count 3.77L, Hemoglobin 11.4L, Hematocrit 33.3L, Mean Corpuscular Volume 88, Mean Corpuscular Hemoglobin 30.2, Mean Corpuscular Hemoglobin Concent 34.2, Red Cell Distribution Width 13.9, Platelet Count 171, Mean Platelet Volume 8.8, Neutrophils (%) (Auto) 82.4H, Lymphocytes ( %) (Auto) 14.3L, Monocytes (%) (Auto) 3.0, Eosinophils (%) (Auto) 0.0, Basophils (%) (Auto) 0.3, Sodium Level 133L, Potassium Level 3.8, Chloride Level 99, Carbon Dioxide Level 19L, Anion Gap 15, Blood Urea Nitrogen 8, Creatinine 0.7, Estimat Glomerular Filtration Rate , Glucose Level 212H, Lactic Acid Level 1.50, Calcium Level 7.7L, Magnesium Level 1.6L, Total Bilirubin 0.2, Aspartate Amino Transf (AST/SGOT) 20, Alanine Aminotransferase (ALT/SGPT) 11, Alkaline Phosphatase 59, Total Protein 5.6L, Albumin 2.0L, Globulin 3.6, Albumin /Globulin Ratio 0.5L Height (Feet): 5 Height (Inches): 2.00 Weight (Pounds): 102 General Appearance: WD/WN, no apparent distress Neck: non-tender, normal alignment, supple Cardiovascular: normal rate, regular rhythm Respiratory/Chest: lungs clear Abdomen: normal bowel sounds, non tender Neurologic: other - lethargic SKYLAR FRIEDMAN Jul 19, 2016 15:26
[2016-07-19 16:00] VITALS: BP 126/58
--- NOTE | 2016-07-19 16:51 | General Progress Note ---
Assessment/Plan Assessment/Plan Assessment - dysphagia - anemia - hyponatremia - OBS - lactic acidosis - resolved - malnutrition --> TPN - EGD shows large HH - Need surgical GT placement Recommendation - transfuse PRN - monitor labs - Free water restriction - NPO via oral route - Await surgery Subjective Allergies: Coded Allergies: No Known Allergies (Unverified , 04/18/12) Subjective non communicative on TPN for surgery this week Objective Last 24 Hour Vital Signs Date Time Temp Pulse Resp B/P Pulse Ox O2 Delivery O2 Flow Rate FiO2 07/19/16 12:00 75 07/19/16 12:00 97.2 81 20 114/55 97 Nasal Cannula 3.0 07/19/16 09:00 97.0 78 16 133/65 99 Nasal Cannula 2.5 07/19/16 08:00 70 07/19/16 06:55 96 Nasal Cannula 2.0 28 07/19/16 06:55 Nasal Cannula 2.0 28 07/19/16 04:00 68 07/19/16 04:00 97.5 80 28 120/78 96 Nasal Cannula 2.0 07/19/16 00:00 67 07/19/16 00:00 97.5 68 24 133/65 97 Nasal Cannula 2.0 07/18/16 20:00 97.9 67 24 110/64 98 Nasal Cannula 2.0 07/18/16 19:06 97 07/18/16 19:00 Nasal Cannula 2.0 28 07/18/16 19:00 97 Nasal Cannula 2.0 28 Intake and Output 07/18/16 07/19/16 19:00 07:00 Intake Total 1134.936 ml 636.4 ml Output Total 650 ml 850 ml Balance 484.936 ml -213.6 ml IV Total 1134.936 ml 636.4 ml Output Urine Total 650 ml 850 ml # Bowel Movements 1 1 Laboratory Tests 07/19/16 05:45: White Blood Count 13.1H, Red Blood Count 3.77L, Hemoglobin 11.4L, Hematocrit 33.3L, Mean Corpuscular Volume 88, Mean Corpuscular Hemoglobin 30.2, Mean Corpuscular Hemoglobin Concent 34.2, Red Cell Distribution Width 13.9, Platelet Count 171, Mean Platelet Volume 8.8, Neutrophils (%) (Auto) 82.4H, Lymphocytes ( %) (Auto) 14.3L, Monocytes (%) (Auto) 3.0, Eosinophils (%) (Auto) 0.0, Basophils (%) (Auto) 0.3, Sodium Level 133L, Potassium Level 3.8, Chloride Level 99, Carbon Dioxide Level 19L, Anion Gap 15, Blood Urea Nitrogen 8, Creatinine 0.7, Estimat Glomerular Filtration Rate , Glucose Level 212H, Lactic Acid Level 1.50, Calcium Level 7.7L, Magnesium Level 1.6L, Total Bilirubin 0.2, Aspartate Amino Transf (AST/SGOT) 20, Alanine Aminotransferase (ALT/SGPT) 11, Alkaline Phosphatase 59, Total Protein 5.6L, Albumin 2.0L, Globulin 3.6, Albumin /Globulin Ratio 0.5L Height (Feet): 5 Height (Inches): 2.00 Weight (Pounds): 102 Objective Thin WW NCAT, (+) OGT supple CTA RRR Soft Flat ND (+) contractures (+) OBS KALEE SERRATO Jul 19, 2016 16:51
[2016-07-19 20:00] VITALS: BP 122/55
[2016-07-19] MEDS: Atorvastatin 20mg tab ORAL SCH (21:00)
[2016-07-19] MEDS: FAT EMULSION 20% IV SCH (22:22)
[2016-07-19] MEDS: TPN IV SCH (22:22)
[2016-07-20] VITALS (21 sets, daily range): BP systolic 111–159; BP diastolic 59–114
[2016-07-20] MEDS: NovoLOG Insulin Flexpen SUBQ SCH ×5 (00:51→23:30)
--- NOTE | 2016-07-20 02:38 | Progress Note ---
DATE: 07/19/2016 CARDIOLOGY PROGRESS NOTE SUBJECTIVE: No new events. The patient remains withdrawn and lethargic. She is on TPN. OBJECTIVE: VITAL SIGNS: Blood pressure 114/55, pulse 81, respirations 20, afebrile, and oxygen saturation 97% on 2 liters nasal cannula. HEENT: Temporal wasting. LUNGS: Diminished breath sounds. HEART: Regular rhythm and rate. Normal S1 and S2. ABDOMEN: Soft. EXTREMITIES: With trace dependent edema. LABORATORY DATA: White count 13.1 and hemoglobin 11.4. Sodium 133, potassium 3.8, bicarb 19, BUN 8, creatinine 0.7, and glucose 212. Lactic acid down to normal, now 1.5 and magnesium 1.6. Albumin 2.0. Urine culture has grown Pseudomonas and E. coli. IMPRESSION: 1. Polymicrobial urinary tract infection. 2. Sepsis. 3. Dysphagia. 4. Metabolic acidosis. 5. Status post shock due to sepsis. 6. Cerebrovascular disease with dementia. 7. Dysphagia. PLAN: 1. Continue TPN. 2. Intravenous antibiotics. 3. Await G-tube placement surgically. 4. Titrate anti-failure and anti-ischemic regimen based on clinical parameters. 5. Further recommendations will follow. 6. The patient remains high risk. Yohan Corbett M.D. DR: POOL JOB#: [id number] CC:
[2016-07-20 05:19] LABS: MEAN CORPUSCULAR HEMOGLOBIN 30.3 PG (27.0-31.0); MEAN CORPUSCULAR HGB CONC 34.3 G/DL (32.0-36.0); MEAN CORPUSCULAR VOLUME 89 FL (80-99); MEAN PLATELET VOLUME 9.9 FL (6.5-10.1); PLATELET COUNT 182 K/UL (150-450); RED BLOOD COUNT 3.77 M/UL (4.20-5.40); RED CELL DISTRIBUTION WIDTH 13.8 % (11.6-14.8)
[2016-07-20 05:25] LABS: WHITE BLOOD COUNT 24.8 K/UL (4.8-10.8)
[2016-07-20 05:29] LABS: MAGNESIUM 2.5 mg/dL (1.7-2.5); PHOSPHORUS 1.3 mg/dL (2.5-4.8)
[2016-07-20 06:06] LABS: ALANINE AMINOTRANSFERASE 11 U/L (3-33); ALBUMIN/GLOBULIN RATIO 0.4 (1.0-2.7); ANION GAP 15 (5-15); ASPARTATE AMINO TRANSFERASE 19 U/L (5-40); CALCIUM 7.9 mg/dL (8.6-10.2); CARBON DIOXIDE 20 mEQ/L (20-30); CHLORIDE 97 mEQ/L (98-107); CREATININE 0.6 mg/dL (0.5-0.9); HEMOLYSIS 6; POTASSIUM 3.3 mEQ/L (3.4-4.9); SODIUM 132 mEQ/L (135-145); TOTAL PROTEIN 5.6 g/dL (6.6-8.7)
[2016-07-20] MEDS: Solu-MEDROL 125mg Inj IVP SCH ×3 (06:50→21:03)
[2016-07-20] MEDS: Piperacillin/Tazobactam 3.375 GM in D5W 110 ML IVPB SCH (06:54)
[2016-07-20 07:59] LABS: BAND NEUTROPHILS % (MANUAL) 4 % (0-8); BASOPHILS % (MANUAL) 0 % (0-2); EOSINOPHILS % (MANUAL) 0 % (0-3); LYMPHOCYTES % (MANUAL) 7 % (20-45); NEUTROPHILS % (MANUAL) 86 % (45-75); PLATELET ESTIMATE ADEQUATE; PLATELET MORPHOLOGY NORMAL; TOTAL CELLS COUNTED 100
[2016-07-20] MEDS: Acetaminophen 650mg/20.3ml NG PRN (08:17)
[2016-07-20] MEDS: Pantoprazole Inj IVP SCH (08:18)
[2016-07-20] MEDS: Aspirin Baby 81mg ORAL SCH (08:18)
--- NOTE | 2016-07-20 09:03 | Anethesia Preoperative Eval ---
Anesthesia Pre-op PMH/ROS General Date of Evaluation: Jul 20, 2016 Time of Evaluation: 12:30 Anesthesiologist: Regan ASA Score: ASA 4 Mallampati Score Class I : Soft palate, uvula, fauces, pillars visible Class II: Soft palate, uvula, fauces visible Class III: Soft palate, base of uvula visible Class IV: Only hard plate visible Mallampati Classification: Class III Surgeon: Niko Diagnosis: Respiratory failure, failure to thrive Surgical Procedure: Gastrostomy Allergies: Coded Allergies: No Known Allergies (Unverified , 04/18/12) Medications: see eMAR Past Medical History Cardiovascular: Reports: CAD, other - CHF, ischemic cardiomyopathy Pulmonary: Reports: other - Respiratory failure, aspiration pneumonia Gastrointestinal/Genitourinary: Reports: CRI Neurologic/Psychiatric: Reports: dementia - Cerebral vascular disease Endocrine: Reports: hypothyroidism Hematology/Immune: Reports: anemia PMH Narrative: CAD, ischemic cardiomyopathy, sepsis, shock, respiratory failure, pneumonia, acute on chronic renal disease, dementia, hypothyroid, hiatal hernia PSxH Narrative: EGD, colonoscopy this admission Anesthesia Pre-op Phys. Exam Physician Exam Last Vital Signs Date Time Temp Pulse Resp B/P Pulse Ox O2 Delivery O2 Flow Rate FiO2 07/20/16 08:00 96.8 89 19 123/77 97 Nasal Cannula 2.5 07/20/16 07:25 28 Constitutional: other Neurologic: other - Dementia, non responsive Cardiovascular: RRR Respiratory: other - Positive rhonchi Gastrointestinal: S/NT/ND Airway Exam Mallampati Score: Class III MO: limited Teeth: broken Anesthesia Pre-op A/P Labs Hematology Test 07/20/16 04:43 White Blood Count 24.8 K/UL (4.8-10.8) #*H Red Blood Count 3.77 M/UL (4.20-5.40) L Hemoglobin 11.4 G/DL (12.0-16.0) L Hematocrit 33.4 % (37.0-47.0) L Mean Corpuscular Volume 89 FL (80-99) Mean Corpuscular Hemoglobin 30.3 PG (27.0-31.0) Mean Corpuscular Hemoglobin Concent 34.3 G/DL (32.0-36.0) Red Cell Distribution Width 13.8 % (11.6-14.8) Platelet Count 182 K/UL (150-450) Mean Platelet Volume 9.9 FL (6.5-10.1) Neutrophils (%) (Auto) % (45.0-75.0) Lymphocytes (%) (Auto) % (20.0-45.0) Monocytes (%) (Auto) % (1.0-10.0) Eosinophils (%) (Auto) % (0.0-3.0) Basophils (%) (Auto) % (0.0-2.0) Differential Total Cells Counted 100 Neutrophils % (Manual) 86 % (45-75) H Lymphocytes % (Manual) 7 % (20-45) L Monocytes % (Manual) 3 % (1-10) Eosinophils % (Manual) 0 % (0-3) Basophils % (Manual) 0 % (0-2) Band Neutrophils 4 % (0-8) Platelet Estimate Adequate Platelet Morphology Normal Red Blood Cell Morphology Normal Chemistry Test 07/20/16 04:43 Sodium Level 132 mEQ/L (135-145) L Potassium Level 3.3 mEQ/L (3.4-4.9) L Chloride Level 97 mEQ/L (98-107) L Carbon Dioxide Level 20 mEQ/L (20-30) Anion Gap 15 (5-15) Blood Urea Nitrogen 9 mg/dL (7-23) Creatinine 0.6 mg/dL (0.5-0.9) Estimat Glomerular Filtration Rate mL/min (>60) Glucose Level 215 mg/dL (74-106) H Calcium Level 7.9 mg/dL (8.6-10.2) L Phosphorus Level 1.3 mg/dL (2.5-4.8) L Magnesium Level 2.5 mg/dL (1.7-2.5) Total Bilirubin 0.3 mg/dL (0.0-1.2) Aspartate Amino Transf (AST/SGOT) 19 U/L (5-40) Alanine Aminotransferase (ALT/SGPT) 11 U/L (3-33) Alkaline Phosphatase 66 U/L (35-104) Total Protein 5.6 g/dL (6.6-8.7) L Albumin 1.8 g/dL (3.5-5.2) L Globulin 3.8 g/dL Albumin/Globulin Ratio 0.4 (1.0-2.7) L Studies Pre-op Studies: EKG - SR Risk Assessment & Plan Assessment: Multi organ disease now for surgical gastrostomy Plan: GA Status Change Before Surgery: No Pre-Antibiotics Drug: None. Patient on antibiotics JOANNE TYLER M.D. Jul 20, 2016 09:03
--- NOTE | 2016-07-20 10:03 | General Progress Note ---
Assessment/Plan Assessment/Plan Assessment - Leukocytosis after steroids - dysphagia - anemia - hyponatremia, hypophoshatemia, hypokalemia - OBS - malnutrition --> TPN - large HH - need surgical GT placement Recommendation - replace K and phos - TPN / monitor labs - Free water restriction - NPO via oral route - Await surgery Subjective Allergies: Coded Allergies: No Known Allergies (Unverified , 04/18/12) Subjective non communicative on TPN for surgery this week HOB elevated Objective Last 24 Hour Vital Signs Date Time Temp Pulse Resp B/P Pulse Ox O2 Delivery O2 Flow Rate FiO2 07/20/16 08:00 96.8 89 19 123/77 97 Nasal Cannula 2.5 07/20/16 07:25 Nasal Cannula 2.0 28 07/20/16 07:25 98 Nasal Cannula 2.0 28 07/20/16 04:00 97.2 87 22 112/62 98 Nasal Cannula 2.0 07/20/16 03:45 85 07/20/16 00:00 97.9 102 18 121/81 99 Trach Collar 07/20/16 00:00 87 07/19/16 20:00 98.4 78 18 122/55 95 Nasal Cannula 2.0 07/19/16 20:00 104 07/19/16 19:00 95 Nasal Cannula 2.0 28 07/19/16 19:00 Nasal Cannula 2.0 28 07/19/16 16:00 78 07/19/16 16:00 98.6 82 20 126/58 93 Nasal Cannula 2.0 07/19/16 12:00 75 07/19/16 12:00 97.2 81 20 114/55 97 Nasal Cannula 3.0 Intake and Output 07/19/16 07/20/16 19:00 07:00 Intake Total 1084.919 ml 386.029 ml Output Total 400 ml 950 ml Balance 684.919 ml -563.971 ml IV Total 1084.919 ml 386.029 ml Output Urine Total 400 ml 950 ml # Bowel Movements 1 1 Laboratory Tests 07/20/16 04:43: White Blood Count 24.8#*H, Red Blood Count 3.77L, Hemoglobin 11.4L, Hematocrit 33.4L, Mean Corpuscular Volume 89, Mean Corpuscular Hemoglobin 30.3, Mean Corpuscular Hemoglobin Concent 34.3, Red Cell Distribution Width 13.8, Platelet Count 182, Mean Platelet Volume 9.9, Neutrophils (%) (Auto) , Lymphocytes (%) ( Auto) , Monocytes (%) (Auto) , Eosinophils (%) (Auto) , Basophils (%) (Auto) , Differential Total Cells Counted 100, Neutrophils % (Manual) 86H, Lymphocytes % (Manual) 7L, Monocytes % (Manual) 3, Eosinophils % (Manual) 0, Basophils % ( Manual) 0, Band Neutrophils 4, Platelet Estimate Adequate, Platelet Morphology Normal, Red Blood Cell Morphology Normal, Sodium Level 132L, Potassium Level 3.3L, Chloride Level 97L, Carbon Dioxide Level 20, Anion Gap 15, Blood Urea Nitrogen 9, Creatinine 0.6, Estimat Glomerular Filtration Rate , Glucose Level 215H, Calcium Level 7.9L, Phosphorus Level 1.3L, Magnesium Level 2.5, Total Bilirubin 0.3, Aspartate Amino Transf (AST/SGOT) 19, Alanine Aminotransferase ( ALT/SGPT) 11, Alkaline Phosphatase 66, Total Protein 5.6L, Albumin 1.8L, Globulin 3.8, Albumin/Globulin Ratio 0.4L Height (Feet): 5 Height (Inches): 1.00 Weight (Pounds): 101 Objective Thin WW NCAT supple CTA RRR Soft Flat ND (+) contractures (+) OBS KALEE SERRATO Jul 20, 2016 10:03
--- NOTE | 2016-07-20 11:06 | Infectious Diseases Prog Note ---
"Assessment/Plan Assessment/Plan antibiotics : vancomycin iv, zosyn A 1. pseudomonas | e.coli UTI 2. shock resolved 3. respiratory failure resolved 4. renal failure improving 5. leucocytosis increased likely secondary to steroids 6. pneumonia P 1. d/c vancomycin iv, zosyn 2. start cefepime 3. will follow up cultures Subjective ROS Limited/Unobtainable: Yes Allergies: Coded Allergies: No Known Allergies (Unverified , 04/18/12) Objective Vital Signs Last 24 Hour Vital Signs Date Time Temp Pulse Resp B/P Pulse Ox O2 Delivery O2 Flow Rate FiO2 07/20/16 08:00 96.8 89 19 123/77 97 Nasal Cannula 2.5 07/20/16 08:00 80 07/20/16 07:25 Nasal Cannula 2.0 28 07/20/16 07:25 98 Nasal Cannula 2.0 28 07/20/16 04:00 97.2 87 22 112/62 98 Nasal Cannula 2.0 07/20/16 03:45 85 07/20/16 00:00 97.9 102 18 121/81 99 Trach Collar 07/20/16 00:00 87 07/19/16 20:00 98.4 78 18 122/55 95 Nasal Cannula 2.0 07/19/16 20:00 104 07/19/16 19:00 95 Nasal Cannula 2.0 28 07/19/16 19:00 Nasal Cannula 2.0 28 07/19/16 16:00 78 07/19/16 16:00 98.6 82 20 126/58 93 Nasal Cannula 2.0 07/19/16 12:00 75 07/19/16 12:00 97.2 81 20 114/55 97 Nasal Cannula 3.0 Height (Feet): 5 Height (Inches): 1.00 Weight (Pounds): 101 Respiratory/Chest: rhonchi - bilaterally Cardiovascular: normal rate, regular rhythm, no gallop/murmur Abdomen: soft, non tender Extremities: no edema, other - right IJ catheter Microbiology Date/Time Source Procedure Growth Status 07/18/16 05:00 Sputum Gram Stain - Final Complete 07/18/16 05:00 Sputum Culture - Final [place] Albicans Usual Upper Respiratory Beatris Complete Laboratory Tests Test 07/20/16 04:43 White Blood Count 24.8 K/UL (4.8-10.8) #*H Red Blood Count 3.77 M/UL (4.20-5.40) L Hemoglobin 11.4 G/DL (12.0-16.0) L Hematocrit 33.4 % (37.0-47.0) L Mean Corpuscular Volume 89 FL (80-99) Mean Corpuscular Hemoglobin 30.3 PG (27.0-31.0) Mean Corpuscular Hemoglobin Concent 34.3 G/DL (32.0-36.0) Red Cell Distribution Width 13.8 % (11.6-14.8) Platelet Count 182 K/UL (150-450) Mean Platelet Volume 9.9 FL (6.5-10.1) Neutrophils (%) (Auto) % (45.0-75.0) Lymphocytes (%) (Auto) % (20.0-45.0) Monocytes (%) (Auto) % (1.0-10.0) Eosinophils (%) (Auto) % (0.0-3.0) Basophils (%) (Auto) % (0.0-2.0) Differential Total Cells Counted 100 Neutrophils % (Manual) 86 % (45-75) H Lymphocytes % (Manual) 7 % (20-45) L Monocytes % (Manual) 3 % (1-10) Eosinophils % (Manual) 0 % (0-3) Basophils % (Manual) 0 % (0-2) Band Neutrophils 4 % (0-8) Platelet Estimate Adequate Platelet Morphology Normal Red Blood Cell Morphology Normal Sodium Level 132 mEQ/L (135-145) L Potassium Level 3.3 mEQ/L (3.4-4.9) L Chloride Level 97 mEQ/L (98-107) L Carbon Dioxide Level 20 mEQ/L (20-30) Anion Gap 15 (5-15) Blood Urea Nitrogen 9 mg/dL (7-23) Creatinine 0.6 mg/dL (0.5-0.9) Estimat Glomerular Filtration Rate mL/min (>60) Glucose Level 215 mg/dL (74-106) H Calcium Level 7.9 mg/dL (8.6-10.2) L Phosphorus Level 1.3 mg/dL (2.5-4.8) L Magnesium Level 2.5 mg/dL (1.7-2.5) Total Bilirubin 0.3 mg/dL (0.0-1.2) Aspartate Amino Transf (AST/SGOT) 19 U/L (5-40) Alanine Aminotransferase (ALT/SGPT) 11 U/L (3-33) Alkaline Phosphatase 66 U/L (35-104) Total Protein 5.6 g/dL (6.6-8.7) L Albumin 1.8 g/dL (3.5-5.2) L Globulin 3.8 g/dL Albumin/Globulin Ratio 0.4 (1.0-2.7) L DAMIAN GUZMAN Jul 20, 2016 11:06"
--- NOTE | 2016-07-20 11:41 | General Progress Note ---
Assessment/Plan Problem List: (1) Hypothyroid ICD Codes: E03.9 - Hypothyroid SNOMED: 02489792 (2) Septic shock ICD Codes: A41.9 - Sepsis, unspecified organism; R65.21 - Severe sepsis with septic shock SNOMED: 55473496 (3) Acute renal failure ICD Codes: N17.9 - Acute kidney failure, unspecified SNOMED: 37771959 Qualifiers: Qualified Codes: N17.0 - Acute kidney failure with tubular necrosis (4) Sepsis ICD Codes: A41.9 - Sepsis, unspecified organism SNOMED: 44188799 (5) Altered mental status ICD Codes: R41.82 - Altered mental status, unspecified SNOMED: 249812958 Qualifiers: Qualified Codes: R41.0 - Disorientation, unspecified (6) Acute delirium ICD Codes: R41.0 - Acute delirium SNOMED: 2978486 (7) UTI (lower urinary tract infection) ICD Codes: N39.0 - UTI (lower urinary tract infection) SNOMED: 6224063 Status: stable Assessment/Plan tpn iv abx per id replace k tpn iv steroids resp rx for surgical gt today Subjective ROS Limited/Unobtainable: Yes Constitutional: Reports: malaise, weakness HEENT: Reports: no symptoms Cardiovascular: Reports: no symptoms Respiratory: Reports: cough Gastrointestinal/Abdominal: Reports: difficulty swallowing, poor appetite Genitourinary: Reports: no symptoms Neurologic/Psychiatric: Reports: no symptoms Endocrine: Reports: no symptoms Hematologic/Lymphatic: Reports: no symptoms Allergies: Coded Allergies: No Known Allergies (Unverified , 04/18/12) All Systems: reviewed and negative except above Subjective started on tpn no events. sob/wheezing much better. npo for surgical gt today Objective Last 24 Hour Vital Signs Date Time Temp Pulse Resp B/P Pulse Ox O2 Delivery O2 Flow Rate FiO2 07/20/16 08:00 96.8 89 19 123/77 97 Nasal Cannula 2.5 07/20/16 08:00 80 07/20/16 07:25 Nasal Cannula 2.0 28 07/20/16 07:25 98 Nasal Cannula 2.0 28 07/20/16 04:00 97.2 87 22 112/62 98 Nasal Cannula 2.0 07/20/16 03:45 85 07/20/16 00:00 97.9 102 18 121/81 99 Trach Collar 2/6/17 00:00 87 07/19/16 20:00 98.4 78 18 122/55 95 Nasal Cannula 2.0 07/19/16 20:00 104 07/19/16 19:00 95 Nasal Cannula 2.0 28 07/19/16 19:00 Nasal Cannula 2.0 28 07/19/16 16:00 78 07/19/16 16:00 98.6 82 20 126/58 93 Nasal Cannula 2.0 07/19/16 12:00 75 07/19/16 12:00 97.2 81 20 114/55 97 Nasal Cannula 3.0 Intake and Output 07/19/16 07/20/16 19:00 07:00 Intake Total 1084.919 ml 386.029 ml Output Total 400 ml 950 ml Balance 684.919 ml -563.971 ml IV Total 1084.919 ml 386.029 ml Output Urine Total 400 ml 950 ml # Bowel Movements 1 1 Laboratory Tests 07/20/16 04:43: White Blood Count 24.8#*H, Red Blood Count 3.77L, Hemoglobin 11.4L, Hematocrit 33.4L, Mean Corpuscular Volume 89, Mean Corpuscular Hemoglobin 30.3, Mean Corpuscular Hemoglobin Concent 34.3, Red Cell Distribution Width 13.8, Platelet Count 182, Mean Platelet Volume 9.9, Neutrophils (%) (Auto) , Lymphocytes (%) ( Auto) , Monocytes (%) (Auto) , Eosinophils (%) (Auto) , Basophils (%) (Auto) , Differential Total Cells Counted 100, Neutrophils % (Manual) 86H, Lymphocytes % (Manual) 7L, Monocytes % (Manual) 3, Eosinophils % (Manual) 0, Basophils % ( Manual) 0, Band Neutrophils 4, Platelet Estimate Adequate, Platelet Morphology Normal, Red Blood Cell Morphology Normal, Sodium Level 132L, Potassium Level 3.3L, Chloride Level 97L, Carbon Dioxide Level 20, Anion Gap 15, Blood Urea Nitrogen 9, Creatinine 0.6, Estimat Glomerular Filtration Rate , Glucose Level 215H, Calcium Level 7.9L, Phosphorus Level 1.3L, Magnesium Level 2.5, Total Bilirubin 0.3, Aspartate Amino Transf (AST/SGOT) 19, Alanine Aminotransferase ( ALT/SGPT) 11, Alkaline Phosphatase 66, Total Protein 5.6L, Albumin 1.8L, Globulin 3.8, Albumin/Globulin Ratio 0.4L Height (Feet): 5 Height (Inches): 1.00 Weight (Pounds): 101 Objective General Appearance: WD/WN, lethargic, confused Neck: supple Cardiovascular: normal rate, regular rhythm Respiratory/Chest: diffuse wheezing Abdomen: normal bowel sounds, non tender, soft, no organomegaly Edema: no edema noted Arm (L), no edema noted Arm (R), no edema noted Leg (L), no edema noted Leg (R), no edema noted Pedal (L), no edema noted Pedal (R), no edema noted Generalized Neurologic: disoriented Skin: normal pigmentation, warm/dry HA FRANCIS Jul 20, 2016 11:41
[2016-07-20] MEDS ORDERED: Zemuron 50mg/5ml Inj IV ONE ×2 (12:30→15:30)
[2016-07-20] MEDS ORDERED: fentaNYL 100 mcg/2 mL IV ONE ×2 (12:30→15:30)
[2016-07-20] MEDS ORDERED: NS 275ml ONE ×2 (12:30→15:30)
[2016-07-20] MEDS ORDERED: Propofol 10mg/ml 20ml IV ONE (12:30)
[2016-07-20] MEDS ORDERED: Midazolam 2mg/2ml Inj ONE ×2 (12:30→15:30)
[2016-07-20] MEDS ORDERED: Sterile Water Irrig 1000ml IRRIG ONE ×2 (12:30→15:30)
[2016-07-20] MEDS ORDERED: NS Irrig 1000ml ONE ×2 (12:30→15:30)
[2016-07-20] MEDS ORDERED: NS 550ML IV ONE ×2 (12:30→15:30)
[2016-07-20] MEDS ORDERED: Lidocaine 1% Plain 30 ml INJ ONE (12:40)
[2016-07-20] MEDS ORDERED: Bupivacaine 0.5% Inj 30 ml vial INJ ONE (12:41)
--- NOTE | 2016-07-20 12:48 | Pre-Procedure Note/Attestation ---
Pre-Procedure Note/Attestation Complete Prior to Procedure Planned Procedure: not applicable Procedure Narrative: surgical gastrostomy Indications for Procedure Pre-Operative Diagnosis: dysphagia,abandoned PEG secondary to abnormal anatomy Attestation I attest that I discussed the nature of the procedure; its benefits; risks and complications; and alternatives (and the risks and benefits of such alternatives ), prior to the procedure, with the patient (or the patient's legal packaging sales representative). I attest that, if there was a reasonable possibility of needing a blood transfusion, the patient (or the patient's legal packaging sales representative) was given the [facility] standardized written summary, pursuant to the [place] Blood Safety Act ([place] Health and Safety Code # 1645, as amended). I attest that I re-evaluated the patient just prior to the surgery and that there has been no change in the patient's H&P, except as documented below None SILVIA KARIMI Jul 20, 2016 12:48
[2016-07-20] MEDS ORDERED: NS Irrig 1000ml IRRIG ONE (13:00)
[2016-07-20] MEDS: Cefepime HCl 1 GM in D5W 55 ML IVPB SCH (13:00)
--- NOTE | 2016-07-20 13:46 | Immediate Post-Op Evaluation ---
Immediate Post-Op Evalulation Immediate Post-Op Evalulation Procedure: peg/NG plament Date of Evaluation: Jul 20, 2016 Time of Evaluation: 15:15 IV Fluids: 200 Urinary Output: 50 Blood Pressure Systolic: 145 Blood Pressure Diastolic: 94 Pulse Rate: 113 Respiratory Rate: 13 O2 Sat by Pulse Oximetry: 96 Temperature (Fahrenheit): 99.0 Pain Score (1-10): 0 Nausea: No Vomiting: No Complications No complication Patient Status: reacts, patent, none Hydration Status: adequate Drug: None JOANNE TYLER M.D. Jul 20, 2016 13:46
[2016-07-20] MEDS ORDERED: fentaNYL 100 mcg/2 mL IV PRN (14:00)
[2016-07-20] MEDS ORDERED: LORazepam Inj 2mg/ml 1ml IV PRN (14:00)
[2016-07-20] MEDS ORDERED: Metoprolol 5mg/5ml Inj ONE (15:07)
--- NOTE | 2016-07-20 15:15 | Brief Operative Note ---
Immediate Post Operative Note Operative Note Pre-op Diagnosis: dysphagia,abandoned PEG secondary to abnormal anatomy Procedure: Janeway gastrostomy Post-op Diagnosis: same as preop Post-op Diagnosis: same as pre-op Criminal Records Technician: Niko Anesthesia: general Specimen: none Complications: none Condition: stable Estimated Blood Loss: none Implant(s) used?: No SILVIA KARIMI Jul 20, 2016 15:15
[2016-07-20] MEDS ORDERED: Metoprolol 5mg/5ml Inj IVP SCH (15:35)
[2016-07-20] MEDS ORDERED: NS IVPB ONE (17:00)
[2016-07-20] MEDS ORDERED: SODIUM PHOSPHATE IVPB ONE (17:00)
--- NOTE | 2016-07-20 20:12 | Nephrology Progress Note ---
Assessment/Plan Assessment 1) S/p MARCELLE 2) No CHF 3) Malnutrition, unable to put NG T in place 4) Hypokalemia 5) underlying sepsis 6) Hypophosphatemia Plan: Will continue TPN Will need PEG NA phos 30 mmole IV Subjective Subjective She is on venturi mask, WBC up to 24 K, still on TPN Objective Objective Last 24 Hour Vital Signs Date Time Temp Pulse Resp B/P Pulse Ox O2 Delivery O2 Flow Rate FiO2 07/20/16 19:15 97.8 94 20 130/76 97 Nasal Cannula 2.5 07/20/16 18:45 96.8 98 18 132/74 98 Nasal Cannula 2.5 07/20/16 18:15 96.7 102 20 132/76 98 Nasal Cannula 2.5 07/20/16 17:45 96.6 106 19 135/83 98 Nasal Cannula 2.5 07/20/16 17:15 96.6 94 20 142/81 98 Nasal Cannula 2.5 07/20/16 17:15 96.7 98 20 146/66 98 Nasal Cannula 2.5 07/20/16 17:00 96.6 96 20 133/85 98 Nasal Cannula 2.5 07/20/16 16:45 96.7 94 20 135/88 98 Nasal Cannula 2.5 07/20/16 16:30 96.7 96 20 135/90 97 Nasal Cannula 2.5 07/20/16 16:15 96.8 98 20 137/91 98 Nasal Cannula 2.5 07/20/16 16:00 100 07/20/16 15:48 98.8 93 17 146/82 97 Simple Mask 6.0 07/20/16 15:30 96 15 146/94 97 Simple Mask 6.0 07/20/16 15:20 95 16 147/85 97 Simple Mask 6.0 07/20/16 15:10 98 13 139/83 97 Simple Mask 6.0 07/20/16 15:07 113 13 96 07/20/16 15:00 114 14 144/85 97 Simple Mask 6.0 07/20/16 15:00 126 145/94 07/20/16 14:55 119 12 156/99 96 Simple Mask 10.0 07/20/16 14:50 99.0 123 10 159/114 97 Simple Mask 10.0 07/20/16 12:00 67 07/20/16 12:00 96.8 67 20 111/59 97 Nasal Cannula 2.5 07/20/16 08:00 96.8 89 19 123/77 97 Nasal Cannula 2.5 07/20/16 08:00 80 07/20/16 07:25 Nasal Cannula 2.0 28 07/20/16 07:25 98 Nasal Cannula 2.0 28 07/20/16 04:00 97.2 87 22 112/62 98 Nasal Cannula 2.0 07/20/16 03:45 85 07/20/16 00:00 97.9 102 18 121/81 99 Trach Collar 07/20/16 00:00 87 Intake and Output 07/19/16 07/20/16 19:00 07:00 Intake Total 1084.919 ml 386.029 ml Output Total 400 ml 950 ml Balance 684.919 ml -563.971 ml IV Total 1084.919 ml 386.029 ml Output Urine Total 400 ml 950 ml # Bowel Movements 1 1 Laboratory Tests 07/20/16 04:43: White Blood Count 24.8#*H, Red Blood Count 3.77L, Hemoglobin 11.4L, Hematocrit 33.4L, Mean Corpuscular Volume 89, Mean Corpuscular Hemoglobin 30.3, Mean Corpuscular Hemoglobin Concent 34.3, Red Cell Distribution Width 13.8, Platelet Count 182, Mean Platelet Volume 9.9, Neutrophils (%) (Auto) , Lymphocytes (%) ( Auto) , Monocytes (%) (Auto) , Eosinophils (%) (Auto) , Basophils (%) (Auto) , Differential Total Cells Counted 100, Neutrophils % (Manual) 86H, Lymphocytes % (Manual) 7L, Monocytes % (Manual) 3, Eosinophils % (Manual) 0, Basophils % ( Manual) 0, Band Neutrophils 4, Platelet Estimate Adequate, Platelet Morphology Normal, Red Blood Cell Morphology Normal, Sodium Level 132L, Potassium Level 3.3L, Chloride Level 97L, Carbon Dioxide Level 20, Anion Gap 15, Blood Urea Nitrogen 9, Creatinine 0.6, Estimat Glomerular Filtration Rate , Glucose Level 215H, Calcium Level 7.9L, Phosphorus Level 1.3L, Magnesium Level 2.5, Total Bilirubin 0.3, Aspartate Amino Transf (AST/SGOT) 19, Alanine Aminotransferase ( ALT/SGPT) 11, Alkaline Phosphatase 66, Total Protein 5.6L, Albumin 1.8L, Globulin 3.8, Albumin/Globulin Ratio 0.4L Height (Feet): 5 Height (Inches): 1.00 Weight (Pounds): 101 General Appearance: WD/WN, no apparent distress EENT: PERRL/EOMI Neck: non-tender, normal alignment, supple Cardiovascular: normal rate, regular rhythm Respiratory/Chest: expiratory wheezing Abdomen: non tender, soft Neurologic: other - lethargic SKYLAR FRIEDMAN Jul 20, 2016 20:12
[2016-07-20] MEDS: Atorvastatin 20mg tab ORAL SCH (21:00)
[2016-07-20] MEDS: TPN IV SCH (21:04)
[2016-07-20] MEDS: FAT EMULSION 20% IV SCH (21:04)
--- NOTE | 2016-07-20 22:39 | Operative Note - Dictated ---
DATE OF OPERATION: 07/20/2016 OPERATING SURGEON: Nick Pope M.D. ANESTHESIOLOGIST: Bill Spears M.D. PREOPERATIVE DIAGNOSES: 1. Respiratory failure. 2. Malnutrition. 3. Dysphagia. 4. Previous aspiration pneumonia. POSTOPERATIVE DIAGNOSES: 1. Respiratory failure. 2. Malnutrition. 3. Dysphagia. 4. Previous aspiration pneumonia. INDICATIONS FOR SURGERY: The patient required a feeding tube to provide nutrition due to her aspiration and dysphagia. A percutaneous endoscopic gastrostomy was attempted, but the stomach did not transilluminate presumably because it was partially intrathoracic. A Janeway gastrostomy was recommended in order to provide nutrition and eliminate the risk of the patient pulling out the tube and having the stoma closed. OPERATIVE TECHNIQUE: The patient was taken to surgery, given general anesthesia with an LMA. The abdomen was sterilely prepared with chlorhexidine. The patient was already on antibiotic therapy. The patient then had a 4 cm vertical midline incision in the upper abdomen. It was noted that the liver edge was very low and the stomach was completely behind it in the vertical orientation and rather narrow. The stomach was engaged and a hallux forceps was brought down, lowered into the abdomen below the liver. A MADDIE stapler was applied to the greater curvature to create a gastric channel. The staple line on the greater curvature was oversewn with a running 3-0 silk. The fundus was then wrapped around the gastric tube with interrupted 3-0 silk to create an anti-reflux valve. Minor bleeding was controlled with 3-0 silk suture ligatures on the gastric wall and an opening was made in the abdominal wall to the left of the midline and the gastric tube was engaged in a Peon clamp and brought through that opening. The stoma was then matured circumferentially with interrupted 3-0 Vicryl and the gastric channel was intubated with a #16-Bahraini gastrostomy tube. The balloon was inflated with approximately 12 mL of fluid. The abdomen was then closed with running #1 Vicryl in the midline fascia. The gastrostomy tube was checked manually to confirm that the balloon was in the proper location prior to the closure and the channel was irrigated to make sure that it was patent and not kinked. The subcutaneous tissue was then repaired with running 3-0 Vicryl and the skin repaired with running 3-0 Vicryl. Appropriate dressings were applied. There were no complications. Blood loss was less than 10 mL. Counts correct. The patient went to the recovery room for postoperative care. Nick Pope M.D. DR: SANTOSH JOB#: [id number] CC: SAMIA
[2016-07-21] VITALS: BP 123/74
--- NOTE | 2016-07-21 02:39 | Progress Note ---
DATE: 07/20/2016 CARDIOLOGY PROGRESS NOTE SUBJECTIVE: The patient is status post surgical G-tube placement. No complications perioperatively were noted. The patient presently is in no apparent distress. OBJECTIVE: VITAL SIGNS: Blood pressure 132/74, pulse 90, and respiratory rate 18. She is afebrile. Saturating 97% on 2 to 3 liters of nasal cannula. LUNGS: Bilateral breath sounds. No wheezing. HEART: Regular rhythm and rate. Normal S1 and S2. ABDOMEN: Slightly distended, but soft. G-tube intact. EXTREMITIES: With trace edema. LABORATORY DATA: White count is 24 and hemoglobin is 11. Sodium is 132, potassium 3.3, and phosphorus 1.3. BUN 9 and creatinine 0.6. Albumin 1.8. IMPRESSION: 1. The patient remains in serious condition with guarded prognosis. 2. Status post surgical G-tube with significant leukocytosis. 3. Severe hypophosphatemia and protein-calorie malnutrition are noted. 4. The patient has mild hypokalemia as well. 5. Underlying ischemic heart disease, clinically compensated with signs of acute on chronic congestive heart failure. RECOMMENDATIONS: 1. Replace potassium, phosphorus, and protein once G-tube feedings are resumed. 2. Continue TPN for now. 3. Check C. difficile toxin. 4. Infectious Disease follow up. 5. Repeat laboratory studies. 6. Hold additional cardiovascular medications at this time. Yohan Corbett M.D. DR: POOL JOB#: [id number] CC:
[2016-07-21 04:00] VITALS: BP 115/72
[2016-07-21] MEDS: Solu-MEDROL 125mg Inj IVP SCH ×3 (05:09→21:30)
[2016-07-21] MEDS: NovoLOG Insulin Flexpen SUBQ SCH ×3 (05:11→18:16)
[2016-07-21] MEDS: Metoprolol 5mg/5ml Inj IVPB SCH ×3 (05:28→18:14)
[2016-07-21 08:00] VITALS: BP 125/92
[2016-07-21] MEDS: Aspirin Baby 81mg ORAL SCH ×2 (09:00→09:56)
[2016-07-21] MEDS: Pantoprazole Inj IVP SCH (09:56)
--- NOTE | 2016-07-21 10:25 | 48 Hour Post Anesthesia Eval ---
Post Anesthesia Evaluation Procedure: peg/NG plament Date of Evaluation: Jul 21, 2016 Time of Evaluation: 10:55 Blood Pressure Systolic: 125 0: 92 Pulse Rate: 88 Respiratory Rate: 22 Temperature (Fahrenheit): 98.2 O2 Sat by Pulse Oximetry: 97 Airway: patent Nausea: No Vomiting: No Pain Intensity: 0 Hydration Status: adequate Cardiopulmonary Status: Currently stable Mental Status/LOC: patient returned to baseline Follow-up Care/Observations: As per surgery Post-Anesthesia Complications: No anesthetic complication Follow-up care needed: N/A JOANNE TYLER M.D. Jul 21, 2016 10:25
--- NOTE | 2016-07-21 10:57 | Infectious Diseases Prog Note ---
"Assessment/Plan Assessment/Plan antibiotics : cefepime A 1. pseudomonas | e.coli UTI 2. shock resolved 3. respiratory failure resolved 4. renal failure improving 5. leucocytosis increased likely secondary to steroids 6. pneumonia P 1. continue cefepime 1 more day 2. will follow up cultures Subjective ROS Limited/Unobtainable: Yes Allergies: Coded Allergies: No Known Allergies (Unverified , 04/18/12) Objective Vital Signs Last 24 Hour Vital Signs Date Time Temp Pulse Resp B/P Pulse Ox O2 Delivery O2 Flow Rate FiO2 07/21/16 10:25 88 22 97 07/21/16 08:00 98.2 88 22 125/92 97 Non-Rebreather 5.0 07/21/16 07:12 Simple Mask 6.0 45 07/21/16 07:12 97 Simple Mask 6.0 45 07/21/16 05:28 119 115/82 07/21/16 04:00 98 07/21/16 04:00 98.2 64 28 115/72 95 Non-Rebreather 5.0 07/21/16 00:00 97.0 104 24 123/74 97 Simple Mask 07/21/16 00:00 90 07/20/16 20:15 97.6 90 18 132/74 97 Nasal Cannula 2.5 07/20/16 20:00 96 07/20/16 19:15 97.8 94 20 130/76 97 Nasal Cannula 2.5 07/20/16 18:45 96.8 98 18 132/74 98 Nasal Cannula 2.5 07/20/16 18:15 96.7 102 20 132/76 98 Nasal Cannula 2.5 07/20/16 17:45 96.6 106 19 135/83 98 Nasal Cannula 2.5 07/20/16 17:15 96.6 94 20 142/81 98 Nasal Cannula 2.5 07/20/16 17:15 96.7 98 20 146/66 98 Nasal Cannula 2.5 07/20/16 17:00 96.6 96 20 133/85 98 Nasal Cannula 2.5 07/20/16 16:45 96.7 94 20 135/88 98 Nasal Cannula 2.5 07/20/16 16:30 96.7 96 20 135/90 97 Nasal Cannula 2.5 07/20/16 16:15 96.8 98 20 137/91 98 Nasal Cannula 2.5 07/20/16 16:00 100 07/20/16 15:48 98.8 93 17 146/82 97 Simple Mask 6.0 07/20/16 15:30 96 15 146/94 97 Simple Mask 6.0 07/20/16 15:20 95 16 147/85 97 Simple Mask 6.0 07/20/16 15:10 98 13 139/83 97 Simple Mask 6.0 07/20/16 15:07 113 13 96 07/20/16 15:00 114 14 144/85 97 Simple Mask 6.0 07/20/16 15:00 126 145/94 07/20/16 14:55 119 12 156/99 96 Simple Mask 10.0 07/20/16 14:50 99.0 123 10 159/114 97 Simple Mask 10.0 07/20/16 12:00 67 07/20/16 12:00 96.8 67 20 111/59 97 Nasal Cannula 2.5 Height (Feet): 5 Height (Inches): 1.00 Weight (Pounds): 101 Respiratory/Chest: rhonchi - bilaterally Cardiovascular: normal rate, regular rhythm, no gallop/murmur Abdomen: soft, non tender, other - GT Extremities: no edema, other - right IJ catheter DAMIAN GUZMAN Jul 21, 2016 10:57"
[2016-07-21 11:13] LABS: MEAN CORPUSCULAR HEMOGLOBIN 29.7 PG (27.0-31.0); MEAN CORPUSCULAR HGB CONC 33.5 G/DL (32.0-36.0); MEAN CORPUSCULAR VOLUME 89 FL (80-99); MEAN PLATELET VOLUME 8.9 FL (6.5-10.1); PLATELET COUNT 223 K/UL (150-450); RED BLOOD COUNT 3.83 M/UL (4.20-5.40); RED CELL DISTRIBUTION WIDTH 13.9 % (11.6-14.8)
[2016-07-21 11:16] LABS: WHITE BLOOD COUNT 26.6 K/UL (4.8-10.8)
[2016-07-21 11:33] LABS: ALANINE AMINOTRANSFERASE 13 U/L (3-33); ALBUMIN/GLOBULIN RATIO 0.5 (1.0-2.7); ANION GAP 15 (5-15); ASPARTATE AMINO TRANSFERASE 21 U/L (5-40); CALCIUM 7.9 mg/dL (8.6-10.2); CARBON DIOXIDE 22 mEQ/L (20-30); CHLORIDE 100 mEQ/L (98-107); CREATININE 0.7 mg/dL (0.5-0.9); HEMOLYSIS 9; SODIUM 137 mEQ/L (135-145); TOTAL PROTEIN 5.5 g/dL (6.6-8.7)
[2016-07-21 11:51] LABS: BAND NEUTROPHILS % (MANUAL) 1 % (0-8); BASOPHILS % (MANUAL) 0 % (0-2); EOSINOPHILS % (MANUAL) 0 % (0-3); LYMPHOCYTES % (MANUAL) 3 % (20-45); NEUTROPHILS % (MANUAL) 93 % (45-75); PLATELET ESTIMATE ADEQUATE; PLATELET MORPHOLOGY NORMAL; TOTAL CELLS COUNTED 100
[2016-07-21 12:00] VITALS: BP 123/79
[2016-07-21] MEDS: Cefepime HCl 1 GM in D5W 55 ML IVPB SCH (12:24)
[2016-07-21 16:00] VITALS: BP 117/72
--- NOTE | 2016-07-21 20:08 | Progress Note ---
DATE: 07/21/2016 SURGICAL PROGRESS NOTE SUBJECTIVE: The patient is now one-day postoperative with placement of a Janeway gastrostomy to allow for enteral feeding. At surgery, the stomach was vertical and rather high in the abdomen, completely covered by the left lobe of the liver, likely related to the patient's body habitus. I was able to do a gastrostomy by constructing a gastric channel with the stapler and bringing it out to the left of the midline incision. The patient has an elevated white count 24,000 right after surgery and slightly higher today, probably due to a combination of surgical stress and steroids, which have been reinstituted a few days ago. She remains afebrile and her vital signs are stable. Her pulse rate is in the 80s. IMPRESSION: Favorable early postoperative course, although the patient is still requiring supplemental oxygen and the white count will have to be monitored carefully. ID has recommended one more day of cefepime. Nick Pope M.D. DR: LAURA JOB#: [id number] CC:
[2016-07-21 20:10] VITALS: BP 123/62
[2016-07-21] MEDS: Atorvastatin 20mg tab ORAL SCH (21:00)
[2016-07-21] MEDS: TPN IV SCH (21:29)
[2016-07-21] MEDS: FAT EMULSION 20% IV SCH (21:29)
--- NOTE | 2016-07-21 21:35 | General Progress Note ---
Assessment/Plan Assessment/Plan Assessment - Leukocytosis after steroids - dysphagia - anemia - hyponatremia, hypophoshatemia, hypokalemia - OBS - malnutrition --> TPN - s/p surgical GT Recommendation - TPN / monitor labs - Free water restriction - NPO via oral route - tube feeds per surgery Subjective Allergies: Coded Allergies: No Known Allergies (Unverified , 04/18/12) Subjective non communicative on TPN POD #1 s/p surgical GT HOB elevated Objective Last 24 Hour Vital Signs Date Time Temp Pulse Resp B/P Pulse Ox O2 Delivery O2 Flow Rate FiO2 07/21/16 20:10 98.4 88 18 123/62 96 Non-Rebreather 07/21/16 18:14 86 117/72 07/21/16 16:00 98.1 98 18 117/72 97 Non-Rebreather 07/21/16 16:00 86 07/21/16 12:15 107 132/94 07/21/16 12:00 98.8 96 21 123/79 99 Non-Rebreather 5.0 07/21/16 12:00 96 07/21/16 10:25 88 22 97 07/21/16 08:00 98.2 88 22 125/92 97 Non-Rebreather 5.0 07/21/16 08:00 88 07/21/16 07:12 Simple Mask 6.0 45 07/21/16 07:12 97 Simple Mask 6.0 45 07/21/16 05:28 119 115/82 07/21/16 04:00 98 07/21/16 04:00 98.2 64 28 115/72 95 Non-Rebreather 5.0 07/21/16 00:00 97.0 104 24 123/74 97 Simple Mask 07/21/16 00:00 90 Intake and Output 07/20/16 07/21/16 19:00 07:00 Intake Total 990.682 ml 854.8 ml Output Total 200 ml 300 ml Balance 790.682 ml 554.8 ml IV Total 990.682 ml 854.8 ml Output Urine Total 200 ml 300 ml Laboratory Tests 07/21/16 11:00: White Blood Count 26.6*H, Red Blood Count 3.83L, Hemoglobin 11.4L, Hematocrit 33.9L, Mean Corpuscular Volume 89, Mean Corpuscular Hemoglobin 29.7, Mean Corpuscular Hemoglobin Concent 33.5, Red Cell Distribution Width 13.9, Platelet Count 223, Mean Platelet Volume 8.9, Neutrophils (%) (Auto) , Lymphocytes (%) ( Auto) , Monocytes (%) (Auto) , Eosinophils (%) (Auto) , Basophils (%) (Auto) , Differential Total Cells Counted 100, Neutrophils % (Manual) 93H, Lymphocytes % (Manual) 3L, Monocytes % (Manual) 3, Eosinophils % (Manual) 0, Basophils % ( Manual) 0, Band Neutrophils 1, Platelet Estimate Adequate, Platelet Morphology Normal, Red Blood Cell Morphology Normal, Sodium Level 137, Potassium Level 4.0 , Chloride Level 100, Carbon Dioxide Level 22, Anion Gap 15, Blood Urea Nitrogen 11, Creatinine 0.7, Estimat Glomerular Filtration Rate , Glucose Level 182H, Calcium Level 7.9L, Total Bilirubin 0.4, Aspartate Amino Transf (AST/SGOT ) 21, Alanine Aminotransferase (ALT/SGPT) 13, Alkaline Phosphatase 75, Total Protein 5.5L, Albumin 2.0L, Globulin 3.5, Albumin/Globulin Ratio 0.5L Height (Feet): 5 Height (Inches): 1.00 Weight (Pounds): 101 Objective Thin WW NCAT supple CTA RRR Soft Flat ND (+) GT (+) contractures (+) OBS KALEE SERRATO Jul 21, 2016 21:35
--- NOTE | 2016-07-21 21:51 | Nephrology Progress Note ---
Assessment/Plan Assessment 1) S/p MARCELLE 2) No CHF 3) Malnutrition, unable to put NG T in place 4) Hypokalemia 5) underlying sepsis 6) Hypophosphatemia Plan: Will continue TPN Will need PEG Will check labs in AM Subjective Subjective She is on venturi mask, WBC up to 26 K, still on TPN, still lethargic, electrolytes are ok Objective Objective Last 24 Hour Vital Signs Date Time Temp Pulse Resp B/P Pulse Ox O2 Delivery O2 Flow Rate FiO2 07/21/16 20:10 98.4 88 18 123/62 96 Non-Rebreather 07/21/16 20:00 86 07/21/16 19:00 96 Simple Mask 6.0 45 07/21/16 19:00 Simple Mask 6.0 45 07/21/16 18:14 86 117/72 07/21/16 16:00 98.1 98 18 117/72 97 Non-Rebreather 07/21/16 16:00 86 07/21/16 12:15 107 132/94 07/21/16 12:00 98.8 96 21 123/79 99 Non-Rebreather 5.0 07/21/16 12:00 96 07/21/16 10:25 88 22 97 07/21/16 08:00 98.2 88 22 125/92 97 Non-Rebreather 5.0 07/21/16 08:00 88 07/21/16 07:12 Simple Mask 6.0 45 07/21/16 07:12 97 Simple Mask 6.0 45 07/21/16 05:28 119 115/82 07/21/16 04:00 98 07/21/16 04:00 98.2 64 28 115/72 95 Non-Rebreather 5.0 07/21/16 00:00 97.0 104 24 123/74 97 Simple Mask 07/21/16 00:00 90 Intake and Output 07/20/16 07/21/16 19:00 07:00 Intake Total 990.682 ml 854.8 ml Output Total 200 ml 300 ml Balance 790.682 ml 554.8 ml IV Total 990.682 ml 854.8 ml Output Urine Total 200 ml 300 ml Laboratory Tests 07/21/16 11:00: White Blood Count 26.6*H, Red Blood Count 3.83L, Hemoglobin 11.4L, Hematocrit 33.9L, Mean Corpuscular Volume 89, Mean Corpuscular Hemoglobin 29.7, Mean Corpuscular Hemoglobin Concent 33.5, Red Cell Distribution Width 13.9, Platelet Count 223, Mean Platelet Volume 8.9, Neutrophils (%) (Auto) , Lymphocytes (%) ( Auto) , Monocytes (%) (Auto) , Eosinophils (%) (Auto) , Basophils (%) (Auto) , Differential Total Cells Counted 100, Neutrophils % (Manual) 93H, Lymphocytes % (Manual) 3L, Monocytes % (Manual) 3, Eosinophils % (Manual) 0, Basophils % ( Manual) 0, Band Neutrophils 1, Platelet Estimate Adequate, Platelet Morphology Normal, Red Blood Cell Morphology Normal, Sodium Level 137, Potassium Level 4.0 , Chloride Level 100, Carbon Dioxide Level 22, Anion Gap 15, Blood Urea Nitrogen 11, Creatinine 0.7, Estimat Glomerular Filtration Rate , Glucose Level 182H, Calcium Level 7.9L, Total Bilirubin 0.4, Aspartate Amino Transf (AST/SGOT ) 21, Alanine Aminotransferase (ALT/SGPT) 13, Alkaline Phosphatase 75, Total Protein 5.5L, Albumin 2.0L, Globulin 3.5, Albumin/Globulin Ratio 0.5L Height (Feet): 5 Height (Inches): 1.00 Weight (Pounds): 101 General Appearance: WD/WN, lethargic EENT: PERRL/EOMI Neck: non-tender, supple Cardiovascular: normal rate, regular rhythm Respiratory/Chest: rhonchi - bilaterally Abdomen: normal bowel sounds, non tender Neurologic: unresponsive SKYLAR FRIEDMAN Jul 21, 2016 21:51
[2016-07-22] VITALS: BP 128/74
[2016-07-22] MEDS: Metoprolol 5mg/5ml Inj IVPB SCH ×4 (00:56→18:33)
[2016-07-22] MEDS: NovoLOG Insulin Flexpen SUBQ SCH ×4 (00:59→17:34)
--- NOTE | 2016-07-22 01:38 | Progress Note ---
DATE: 07/21/2016 CARDIOLOGY PROGRESS NOTE The patient remains on Venturi mask. She is on TPN and lethargic. Surgical G-tube was placed. OBJECTIVE: VITAL SIGNS: Blood pressure 120/40, pulse 88, respirations 18, and afebrile. LUNGS: Bilateral breath sounds. Few rhonchi. HEART: Regular rhythm and rate. Normal S1 and S2 with a fourth heart sound. ABDOMEN: Soft. Slightly distended. G-tube intact. EXTREMITIES: With trace edema. LABORATORY DATA: Urine grew out culture yeast Pseudomonas and E. coli. Sputum culture, [place]. White count 26.6 and hemoglobin 11.4. Potassium 4, BUN 11, and creatinine 0.7. Albumin 2.0. Phosphorus yesterday 1.3. IMPRESSION: 1. Severe protein-calorie malnutrition. 2. Dysphagia, status post G-tube. 3. Sepsis. 4. Urinary tract infection. 5. Aspiration, status post shock due to urinary sepsis. 6. Dementia. 7. Hard of hearing. 8. Ischemic cardiomyopathy. PLAN: Nutritional support by feeding tube once able to use . Continue TPN until . Replace potassium and magnesium based on clinical parameters. Phosphorus replacement to follow. Antibiotics. Check C. difficile and DVT and stress ulcer prophylaxis. Monitor cardiopulmonary status, volume status, and initiate diuresis as needed based on clinical parameters. Antianginal regimen in place without change. Yohan Corbett M.D. DR: PARKER JOB#: [id number] CC:
[2016-07-22 04:00] VITALS: BP 135/78
[2016-07-22 06:30] LABS: ALANINE AMINOTRANSFERASE 15 U/L (3-33); ALBUMIN/GLOBULIN RATIO 0.4 (1.0-2.7); ANION GAP 14 (5-15); ASPARTATE AMINO TRANSFERASE 23 U/L (5-40); CARBON DIOXIDE 20 mEQ/L (20-30); CHLORIDE 103 mEQ/L (98-107); CREATININE 0.7 mg/dL (0.5-0.9); HEMOLYSIS 9; POTASSIUM 4.4 mEQ/L (3.4-4.9); SODIUM 137 mEQ/L (135-145); TOTAL PROTEIN 5.8 g/dL (6.6-8.7)
[2016-07-22 08:00] VITALS: BP 126/78
--- NOTE | 2016-07-22 08:04 | Critical Care Progress Note ---
Assessment/Plan Assessment/Plan IMPRESSION: Respiratory failure, resolved, presumed sepsis, shock, hypothermia, hypotension-recurrent, history of dementia , history congestive heart failure, history of coronary artery disease, history of hypertension, possible acute on chronic renal failure, significant lactic acidemia, protein-calorie malnutrition, and profound leukocytosis-resolved; fevers PLAN pulmonary care reviewed fluid management and keep negative cards noted chest xr to follow exam noted and edited care reviewed in detail no distress at present optimize and advance care as able monitor for aspiration and congestion transition to SNF medications/laboratory data/nursing notes reviewed in detail note reviewed and edited care discussed with RN and RT Critical Care - Subjective Interval Events: events noted supportive measures reviewed no recent imaging noted ROS Limited/Unobtainable: Yes Condition: stable EKG Rhythm: Sinus Rhythm Residuals: minimal Tube Feeding Tolerated: yes I&O: Intake and Output 07/21/16 07/22/16 19:00 07:00 Intake Total 774.8 ml 554.4 ml Output Total 400 ml 735 ml Balance 374.8 ml -180.6 ml IV Total 774.8 ml 554.4 ml Output Urine Total 350 ml 600 ml Gastric Drainage Total 50 ml 135 ml Critical Care - Objective ET-Tube: 8.0 ET Position: 24 Last 24 Hour Vital Signs Date Time Temp Pulse Resp B/P Pulse Ox O2 Delivery O2 Flow Rate FiO2 07/22/16 07:54 98 07/22/16 06:58 98 Simple Mask 6.0 45 07/22/16 06:58 Simple Mask 6.0 45 07/22/16 06:35 107 135/78 07/22/16 04:00 107 07/22/16 04:00 99.0 90 32 135/78 99 Non-Rebreather 07/22/16 00:56 89 128/76 07/22/16 00:00 99.1 101 22 128/74 98 Non-Rebreather 07/22/16 00:00 101 07/22/16 00:00 99.1 98 32 128/74 98 Non-Rebreather 07/21/16 20:10 98.4 88 18 123/62 96 Non-Rebreather 07/21/16 20:00 86 07/21/16 19:00 96 Simple Mask 6.0 45 07/21/16 19:00 Simple Mask 6.0 45 07/21/16 18:14 86 117/72 07/21/16 16:00 98.1 98 18 117/72 97 Non-Rebreather 07/21/16 16:00 86 07/21/16 12:15 107 132/94 07/21/16 12:00 98.8 96 21 123/79 99 Non-Rebreather 5.0 07/21/16 12:00 96 07/21/16 10:25 88 22 97 Labs: Labs Test 07/20/16 04:43 07/21/16 11:00 07/22/16 03:50 White Blood Count 24.8 K/UL (4.8-10.8) 26.6 K/UL (4.8-10.8) Red Blood Count 3.77 M/UL (4.20-5.40) 3.83 M/UL (4.20-5.40) Hemoglobin 11.4 G/DL (12.0-16.0) 11.4 G/DL (12.0-16.0) Hematocrit 33.4 % (37.0-47.0) 33.9 % (37.0-47.0) Mean Corpuscular Volume 89 FL (80-99) 89 FL (80-99) Mean Corpuscular Hemoglobin 30.3 PG (27.0-31.0) 29.7 PG (27.0-31.0) Mean Corpuscular Hemoglobin Concent 34.3 G/DL (32.0-36.0) 33.5 G/DL (32.0-36.0) Red Cell Distribution Width 13.8 % (11.6-14.8) 13.9 % (11.6-14.8) Platelet Count 182 K/UL (150-450) 223 K/UL (150-450) Mean Platelet Volume 9.9 FL (6.5-10.1) 8.9 FL (6.5-10.1) Neutrophils (%) (Auto) % (45.0-75.0) % (45.0-75.0) Lymphocytes (%) (Auto) % (20.0-45.0) % (20.0-45.0) Monocytes (%) (Auto) % (1.0-10.0) % (1.0-10.0) Eosinophils (%) (Auto) % (0.0-3.0) % (0.0-3.0) Basophils (%) (Auto) % (0.0-2.0) % (0.0-2.0) Differential Total Cells Counted 100 100 Neutrophils % (Manual) 86 % (45-75) 93 % (45-75) Lymphocytes % (Manual) 7 % (20-45) 3 % (20-45) Monocytes % (Manual) 3 % (1-10) 3 % (1-10) Eosinophils % (Manual) 0 % (0-3) 0 % (0-3) Basophils % (Manual) 0 % (0-2) 0 % (0-2) Band Neutrophils 4 % (0-8) 1 % (0-8) Platelet Estimate Adequate Adequate Platelet Morphology Normal Normal Red Blood Cell Morphology Normal Normal Sodium Level 132 mEQ/L (135-145) 137 mEQ/L (135-145) 137 mEQ/L (135-145) Potassium Level 3.3 mEQ/L (3.4-4.9) 4.0 mEQ/L (3.4-4.9) 4.4 mEQ/L (3.4-4.9) Chloride Level 97 mEQ/L (98-107) 100 mEQ/L (98-107) 103 mEQ/L (98-107) Carbon Dioxide Level 20 mEQ/L (20-30) 22 mEQ/L (20-30) 20 mEQ/L (20-30) Anion Gap 15 (5-15) 15 (5-15) 14 (5-15) Blood Urea Nitrogen 9 mg/dL (7-23) 11 mg/dL (7-23) 15 mg/dL (7-23) Creatinine 0.6 mg/dL (0.5-0.9) 0.7 mg/dL (0.5-0.9) 0.7 mg/dL (0.5-0.9) Estimat Glomerular Filtration Rate mL/min (>60) mL/min (>60) mL/min (>60) Glucose Level 215 mg/dL (74-106) 182 mg/dL (74-106) 187 mg/dL (74-106) Calcium Level 7.9 mg/dL (8.6-10.2) 7.9 mg/dL (8.6-10.2) 8.0 mg/dL (8.6-10.2) Phosphorus Level 1.3 mg/dL (2.5-4.8) 2.0 mg/dL (2.5-4.8) Magnesium Level 2.5 mg/dL (1.7-2.5) 2.0 mg/dL (1.7-2.5) Total Bilirubin 0.3 mg/dL (0.0-1.2) 0.4 mg/dL (0.0-1.2) 0.5 mg/dL (0.0-1.2) Aspartate Amino Transf (AST/SGOT) 19 U/L (5-40) 21 U/L (5-40) 23 U/L (5-40) Alanine Aminotransferase (ALT/SGPT) 11 U/L (3-33) 13 U/L (3-33) 15 U/L (3-33) Alkaline Phosphatase 66 U/L (35-104) 75 U/L (35-104) 78 U/L (35-104) Total Protein 5.6 g/dL (6.6-8.7) 5.5 g/dL (6.6-8.7) 5.8 g/dL (6.6-8.7) Albumin 1.8 g/dL (3.5-5.2) 2.0 g/dL (3.5-5.2) 1.9 g/dL (3.5-5.2) Globulin 3.8 g/dL 3.5 g/dL 3.9 g/dL Albumin/Globulin Ratio 0.4 (1.0-2.7) 0.5 (1.0-2.7) 0.4 (1.0-2.7) Objective: GENERAL: A well-developed female, NAD HEENT: Fairly negative. NAD NECK: Supple. No jugular venous distention. LUNGS: moderate breath sounds without rhonchi; Moderate air entry. minimal rhonchi CARDIAC: S1 and S2. RRR without murmurs, rubs, or gallops. ABDOMEN: Soft, nontender, and nondistended. no HSM; GT EXTREMITIES: No cyanosis or clubbing. No edema. NEUROLOGICAL: Grossly nonfocal. contracted and withdrawn reviewed and edited Accucheck: 277 MARCELO [place] Jul 22, 2016 08:04
--- NOTE | 2016-07-22 08:28 | General Progress Note ---
Assessment/Plan Problem List: (1) Hypothyroid ICD Codes: E03.9 - Hypothyroid SNOMED: 51052642 (2) Septic shock ICD Codes: A41.9 - Sepsis, unspecified organism; R65.21 - Severe sepsis with septic shock SNOMED: 04551092 (3) Acute renal failure ICD Codes: N17.9 - Acute kidney failure, unspecified SNOMED: 29988728 Qualifiers: Qualified Codes: N17.0 - Acute kidney failure with tubular necrosis (4) Sepsis ICD Codes: A41.9 - Sepsis, unspecified organism SNOMED: 18700814 (5) Altered mental status ICD Codes: R41.82 - Altered mental status, unspecified SNOMED: 775606678 Qualifiers: Qualified Codes: R41.0 - Disorientation, unspecified (6) Acute delirium ICD Codes: R41.0 - Acute delirium SNOMED: 6802351 (7) UTI (lower urinary tract infection) ICD Codes: N39.0 - UTI (lower urinary tract infection) SNOMED: 5485272 Status: stable, progressing Assessment/Plan tpn iv abx per id check cxr iv steroids resp rx gt feeds once cleared by surgery remains tenuous Subjective ROS Limited/Unobtainable: Yes Constitutional: Reports: malaise, weakness HEENT: Reports: no symptoms Cardiovascular: Reports: no symptoms Respiratory: Reports: shortness of breath, sputum Gastrointestinal/Abdominal: Reports: difficulty swallowing Genitourinary: Reports: no symptoms Neurologic/Psychiatric: Reports: no symptoms Endocrine: Reports: no symptoms Hematologic/Lymphatic: Reports: no symptoms Allergies: Coded Allergies: No Known Allergies (Unverified , 04/18/12) All Systems: reviewed and negative except above Subjective on tpn no events. sob/wheezing much better. s/p surgical gt. still has some output from gt. on facemask now Objective Last 24 Hour Vital Signs Date Time Temp Pulse Resp B/P Pulse Ox O2 Delivery O2 Flow Rate FiO2 07/22/16 07:54 98 07/22/16 06:58 98 Simple Mask 6.0 45 07/22/16 06:58 Simple Mask 6.0 45 07/22/16 06:35 107 135/78 07/22/16 04:00 107 07/22/16 04:00 99.0 90 32 135/78 99 Non-Rebreather 07/22/16 00:56 89 128/76 07/22/16 00:00 99.1 101 22 128/74 98 Non-Rebreather 07/22/16 00:00 101 07/22/16 00:00 99.1 98 32 128/74 98 Non-Rebreather 07/21/16 20:10 98.4 88 18 123/62 96 Non-Rebreather 07/21/16 20:00 86 07/21/16 19:00 96 Simple Mask 6.0 45 07/21/16 19:00 Simple Mask 6.0 45 07/21/16 18:14 86 117/72 07/21/16 16:00 98.1 98 18 117/72 97 Non-Rebreather 07/21/16 16:00 86 07/21/16 12:15 107 132/94 07/21/16 12:00 98.8 96 21 123/79 99 Non-Rebreather 5.0 07/21/16 12:00 96 07/21/16 10:25 88 22 97 Intake and Output 07/21/16 07/22/16 19:00 07:00 Intake Total 774.8 ml 554.4 ml Output Total 400 ml 735 ml Balance 374.8 ml -180.6 ml IV Total 774.8 ml 554.4 ml Output Urine Total 350 ml 600 ml Gastric Drainage Total 50 ml 135 ml Laboratory Tests 07/21/16 11:00: White Blood Count 26.6*H, Red Blood Count 3.83L, Hemoglobin 11.4L, Hematocrit 33.9L, Mean Corpuscular Volume 89, Mean Corpuscular Hemoglobin 29.7, Mean Corpuscular Hemoglobin Concent 33.5, Red Cell Distribution Width 13.9, Platelet Count 223, Mean Platelet Volume 8.9, Neutrophils (%) (Auto) , Lymphocytes (%) ( Auto) , Monocytes (%) (Auto) , Eosinophils (%) (Auto) , Basophils (%) (Auto) , Differential Total Cells Counted 100, Neutrophils % (Manual) 93H, Lymphocytes % (Manual) 3L, Monocytes % (Manual) 3, Eosinophils % (Manual) 0, Basophils % ( Manual) 0, Band Neutrophils 1, Platelet Estimate Adequate, Platelet Morphology Normal, Red Blood Cell Morphology Normal, Sodium Level 137, Potassium Level 4.0 , Chloride Level 100, Carbon Dioxide Level 22, Anion Gap 15, Blood Urea Nitrogen 11, Creatinine 0.7, Estimat Glomerular Filtration Rate , Glucose Level 182H, Calcium Level 7.9L, Total Bilirubin 0.4, Aspartate Amino Transf (AST/SGOT ) 21, Alanine Aminotransferase (ALT/SGPT) 13, Alkaline Phosphatase 75, Total Protein 5.5L, Albumin 2.0L, Globulin 3.5, Albumin/Globulin Ratio 0.5L 07/22/16 03:50: Sodium Level 137, Potassium Level 4.4, Chloride Level 103, Carbon Dioxide Level 20, Anion Gap 14, Blood Urea Nitrogen 15, Creatinine 0.7, Estimat Glomerular Filtration Rate , Glucose Level 187H, Calcium Level 8.0L, Total Bilirubin 0.5, Aspartate Amino Transf (AST/SGOT) 23, Alanine Aminotransferase (ALT/SGPT) 15, Alkaline Phosphatase 78, Total Protein 5.8L, Albumin 1.9L, Globulin 3.9, Albumin /Globulin Ratio 0.4L, Phosphorus Level 2.0L, Magnesium Level 2.0 Height (Feet): 5 Height (Inches): 1.00 Weight (Pounds): 101 Objective General Appearance: WD/WN, lethargic, confused Neck: supple Cardiovascular: normal rate, regular rhythm Respiratory/Chest: diffuse wheezing Abdomen: normal bowel sounds, non tender, soft, no organomegaly Edema: no edema noted Arm (L), no edema noted Arm (R), no edema noted Leg (L), no edema noted Leg (R), no edema noted Pedal (L), no edema noted Pedal (R), no edema noted Generalized Neurologic: disoriented Skin: normal pigmentation, warm/dry HA FRANCIS Jul 22, 2016 08:28
[2016-07-22] MEDS: Aspirin Baby 81mg ORAL SCH (09:00)
[2016-07-22] MEDS: Pantoprazole Inj IVP SCH (09:27)
[2016-07-22] MEDS: Solu-MEDROL 125mg Inj IVP SCH (09:37)
--- NOTE | 2016-07-22 11:01 | Infectious Diseases Prog Note ---
Assessment/Plan Assessment/Plan A 1. Sepsis 2. UTI 4. Anemia 5. Dysphagia 6. leucocytosis worsening 7. Atelectasis P 1. Continue Cefepime 2. check CXR & CBC Subjective ROS Limited/Unobtainable: Yes Allergies: Coded Allergies: No Known Allergies (Unverified , 04/18/12) Objective Vital Signs Last 24 Hour Vital Signs Date Time Temp Pulse Resp B/P Pulse Ox O2 Delivery O2 Flow Rate FiO2 07/22/16 08:00 98.6 93 20 126/78 99 Simple Mask 07/22/16 08:00 98.6 97 20 126/78 98 Simple Mask 5.0 07/22/16 07:54 98 07/22/16 06:58 98 Simple Mask 6.0 45 07/22/16 06:58 Simple Mask 6.0 45 07/22/16 06:35 107 135/78 07/22/16 04:00 107 07/22/16 04:00 99.0 90 32 135/78 99 Non-Rebreather 07/22/16 00:56 89 128/76 07/22/16 00:00 99.1 101 22 128/74 98 Non-Rebreather 07/22/16 00:00 101 07/22/16 00:00 99.1 98 32 128/74 98 Non-Rebreather 07/21/16 20:10 98.4 88 18 123/62 96 Non-Rebreather 07/21/16 20:00 86 07/21/16 19:00 96 Simple Mask 6.0 45 07/21/16 19:00 Simple Mask 6.0 45 07/21/16 18:14 86 117/72 07/21/16 16:00 98.1 98 18 117/72 97 Non-Rebreather 07/21/16 16:00 86 07/21/16 12:15 107 132/94 07/21/16 12:00 98.8 96 21 123/79 99 Simple Mask 5.0 07/21/16 12:00 96 Height (Feet): 5 Height (Inches): 1.00 Weight (Pounds): 101 HEENT: mucous membranes moist Respiratory/Chest: decreased breath sounds, other - O2 by mask Cardiovascular: other - RIJ line Abdomen: soft, non tender Extremities: no edema Neurologic/Psychiatric: unresponsiveness Laboratory Tests Test 07/21/16 11:00 07/22/16 03:50 White Blood Count 26.6 K/UL (4.8-10.8) *H Red Blood Count 3.83 M/UL (4.20-5.40) L Hemoglobin 11.4 G/DL (12.0-16.0) L Hematocrit 33.9 % (37.0-47.0) L Mean Corpuscular Volume 89 FL (80-99) Mean Corpuscular Hemoglobin 29.7 PG (27.0-31.0) Mean Corpuscular Hemoglobin Concent 33.5 G/DL (32.0-36.0) Red Cell Distribution Width 13.9 % (11.6-14.8) Platelet Count 223 K/UL (150-450) Mean Platelet Volume 8.9 FL (6.5-10.1) Neutrophils (%) (Auto) % (45.0-75.0) Lymphocytes (%) (Auto) % (20.0-45.0) Monocytes (%) (Auto) % (1.0-10.0) Eosinophils (%) (Auto) % (0.0-3.0) Basophils (%) (Auto) % (0.0-2.0) Differential Total Cells Counted 100 Neutrophils % (Manual) 93 % (45-75) H Lymphocytes % (Manual) 3 % (20-45) L Monocytes % (Manual) 3 % (1-10) Eosinophils % (Manual) 0 % (0-3) Basophils % (Manual) 0 % (0-2) Band Neutrophils 1 % (0-8) Platelet Estimate Adequate Platelet Morphology Normal Red Blood Cell Morphology Normal Sodium Level 137 mEQ/L (135-145) 137 mEQ/L (135-145) Potassium Level 4.0 mEQ/L (3.4-4.9) 4.4 mEQ/L (3.4-4.9) Chloride Level 100 mEQ/L (98-107) 103 mEQ/L (98-107) Carbon Dioxide Level 22 mEQ/L (20-30) 20 mEQ/L (20-30) Anion Gap 15 (5-15) 14 (5-15) Blood Urea Nitrogen 11 mg/dL (7-23) 15 mg/dL (7-23) Creatinine 0.7 mg/dL (0.5-0.9) 0.7 mg/dL (0.5-0.9) Estimat Glomerular Filtration Rate mL/min (>60) mL/min (>60) Glucose Level 182 mg/dL (74-106) H 187 mg/dL (74-106) H Calcium Level 7.9 mg/dL (8.6-10.2) L 8.0 mg/dL (8.6-10.2) L Total Bilirubin 0.4 mg/dL (0.0-1.2) 0.5 mg/dL (0.0-1.2) Aspartate Amino Transf (AST/SGOT) 21 U/L (5-40) 23 U/L (5-40) Alanine Aminotransferase (ALT/SGPT) 13 U/L (3-33) 15 U/L (3-33) Alkaline Phosphatase 75 U/L (35-104) 78 U/L (35-104) Total Protein 5.5 g/dL (6.6-8.7) L 5.8 g/dL (6.6-8.7) L Albumin 2.0 g/dL (3.5-5.2) L 1.9 g/dL (3.5-5.2) L Globulin 3.5 g/dL 3.9 g/dL Albumin/Globulin Ratio 0.5 (1.0-2.7) L 0.4 (1.0-2.7) L Phosphorus Level 2.0 mg/dL (2.5-4.8) L Magnesium Level 2.0 mg/dL (1.7-2.5) Current Medications Medications (Trade) Dose Ordered Sig/Trip Route PRN Reason Start Time Stop Time Status Last Admin Dose Admin Acetaminophen (Tylenol) 650 mg Q4H PRN NG Prn Headache/Temp > 101 07/16/16 23:34 08/15/16 23:33 Albuterol/ Ipratropium (DuoNeb 0.5-3(2.5)mg/3ml) 3 ml Q4H PRN HHN Shortness of Breath 07/18/16 07:15 07/23/16 07:14 Aspirin (ASA) 81 mg DAILY ORAL 07/17/16 09:00 08/16/16 08:59 07/20/16 08:18 Atorvastatin Calcium (Lipitor) 20 mg BEDTIME ORAL 07/17/16 21:00 3/5/17 20:59 07/17/16 21:17 Cefepime HCl/ Dextrose (Maxipime/D5W) 55 ml @ 110 mls/hr Q24H IVPB 07/20/16 13:00 07/27/16 12:59 07/21/16 12:24 Dextrose (D10w) 1,000 ml @ 0 mls/hr Q24H PRN IV TPN interrupted or unavailable 07/16/16 23:35 08/15/16 23:34 Dextrose (Dextrose 50%) STAT PRN IV Hypoglycemia 07/17/16 17:30 08/16/16 17:29 Fat Emulsion Intravenous 250 ml/Amino Acids/ Electrolytes/ Dextrose 1,330 ml @ 55.417 mls/ hr Q24H IV 07/19/16 21:00 08/18/16 20:59 07/21/16 21:29 Insulin Aspart (NovoLOG) Q6HR SUBQ 07/17/16 21:00 08/16/16 20:59 07/22/16 06:40 Levothyroxine Sodium 100 mcg 100 mcg DAILY IV 07/19/16 09:00 08/18/16 08:59 07/22/16 09:27 Methylprednisolone Sodium Succinate (Solu-MEDROL) 60 mg DAILY IVP 07/22/16 09:00 08/21/16 08:59 07/22/16 09:37 Metoprolol Tartrate (Lopressor) 5 mg EVERY 6 HOURS IVPB 07/21/16 06:00 08/20/16 05:59 07/22/16 06:35 Pantoprazole (Protonix) 40 mg DAILY IVP 07/17/16 09:00 08/16/16 08:59 07/22/16 09:27 JAMEEL TRIPATHI Jul 22, 2016 11:01
[2016-07-22] MEDS: Cefepime HCl 1 GM in D5W 55 ML IVPB SCH (12:17)
[2016-07-22 12:18] VITALS: BP 129/83
[2016-07-22 14:36] LABS: APPEARANCE,URINE SLIGHTLY CLOUDY; KETONES,URINE NEGATIVE (NEGATIVE); LEUKOCYTE ESTERASE ,URINE 2+ (NEGATIVE); NITRITE,URINE NEGATIVE (NEGATIVE); PH,URINE 6 (4.5-8.0); PROTEIN,URINE 3+ (NEGATIVE); UROBILINOGEN,URINE NORMAL MG/DL (0.0-1.0)
[2016-07-22 14:50] LABS: BACTERIA,URINE FEW /HPF; RBC,URINE 15-20 /HPF (0 - 2); SQUAMOUS EPITHELIAL CELL,UR FEW /LPF (NONE/OCC)
[2016-07-22 14:51] LABS: YEAST,URINE MODERATE /HPF
[2016-07-22 16:00] VITALS: BP 142/92
[2016-07-22] MEDS: Acetaminophen 650mg/20.3ml NG PRN ×2 (17:33→20:21)
[2016-07-22 20:00] VITALS: BP 128/93
[2016-07-22] MEDS: Atorvastatin 20mg tab ORAL SCH (20:21)
--- NOTE | 2016-07-22 20:57 | Progress Note ---
DATE: 07/22/2016 SURGICAL PROGRESS NOTE The patient is now 48 hours post surgical gastrostomy. The surgical site looks clean. We can consider starting enteral feeding tomorrow morning. At this point, there is no evidence of bleeding or infection. The patient has active bowel sounds. I would start feeding tomorrow at a cautious rate of approximately 20 to 30 mL an hour and advance feeding as tolerated. Nick Pope M.D. DR: ALANNA JOB#: [id number] CC:
[2016-07-22] MEDS: FAT EMULSION 20% IV SCH (21:03)
[2016-07-22] MEDS: TPN IV SCH (21:03)
--- NOTE | 2016-07-22 21:29 | General Progress Note ---
Assessment/Plan Assessment/Plan Assessment - Leukocytosis after steroids - dysphagia - anemia - hyponatremia, hypophosphatemia, hypokalemia - OBS - malnutrition --> TPN - s/p surgical GT Recommendation - TPN / monitor labs - Free water restriction - NPO via oral route - tube feeds per surgery - likely am Subjective Allergies: Coded Allergies: No Known Allergies (Unverified , 04/18/12) Subjective non communicative on TPN POD #2 s/p surgical GT HOB elevated Objective Last 24 Hour Vital Signs Date Time Temp Pulse Resp B/P Pulse Ox O2 Delivery O2 Flow Rate FiO2 07/22/16 20:00 98.4 111 22 128/93 98 Simple Mask 5.0 07/22/16 19:15 Simple Mask 5.0 40 07/22/16 19:15 97 Simple Mask 5.0 40 07/22/16 18:33 104 142/92 07/22/16 16:00 98.1 104 22 142/92 98 Simple Mask 5.0 07/22/16 15:09 101 07/22/16 12:18 97.9 114 20 129/83 98 Simple Mask 5.0 07/22/16 12:15 103 129/81 07/22/16 11:25 87 07/22/16 08:00 98.6 93 20 126/78 99 Simple Mask 07/22/16 08:00 98.6 97 20 126/78 98 Simple Mask 5.0 07/22/16 07:54 98 07/22/16 06:58 98 Simple Mask 6.0 45 07/22/16 06:58 Simple Mask 6.0 45 07/22/16 06:35 107 135/78 07/22/16 04:00 107 07/22/16 04:00 99.0 90 32 135/78 99 Non-Rebreather 07/22/16 00:56 89 128/76 07/22/16 00:00 99.1 101 22 128/74 98 Non-Rebreather 07/22/16 00:00 101 07/22/16 00:00 99.1 98 32 128/74 98 Non-Rebreather Intake and Output 07/21/16 07/22/16 19:00 07:00 Intake Total 774.8 ml 609.8 ml Output Total 400 ml 735 ml Balance 374.8 ml -125.2 ml IV Total 774.8 ml 609.8 ml Output Urine Total 350 ml 600 ml Gastric Drainage Total 50 ml 135 ml Laboratory Tests 07/22/16 03:50: Sodium Level 137, Potassium Level 4.4, Chloride Level 103, Carbon Dioxide Level 20, Anion Gap 14, Blood Urea Nitrogen 15, Creatinine 0.7, Estimat Glomerular Filtration Rate , Glucose Level 187H, Calcium Level 8.0L, Phosphorus Level 2.0L , Magnesium Level 2.0, Total Bilirubin 0.5, Aspartate Amino Transf (AST/SGOT) 23 , Alanine Aminotransferase (ALT/SGPT) 15, Alkaline Phosphatase 78, Total Protein 5.8L, Albumin 1.9L, Globulin 3.9, Albumin/Globulin Ratio 0.4L 07/22/16 14:00: Urine Color Yellow, Urine Appearance Slightly cloudy, Urine pH 6, Urine Specific [place] 1.015, Urine Protein 3+H, Urine Glucose (UA) Negative, Urine Ketones Negative, Urine Occult Blood 5+H, Urine Nitrite Negative, Urine Bilirubin Negative, Urine Urobilinogen Normal, Urine Leukocyte Esterase 2+H, Urine RBC 15-20H, Urine WBC 10-15H, Urine Squamous Epithelial Cells Few, Urine Bacteria Few, Urine Yeast ModerateH Height (Feet): 5 Height (Inches): 1.00 Weight (Pounds): 101 Objective Thin WW NCAT supple CTA RRR Soft Flat ND (+) GT (+) contractures (+) OBS KALEE SERRATO Jul 22, 2016 21:29
--- NOTE | 2016-07-22 23:27 | Nephrology Progress Note ---
Assessment/Plan Assessment 1) S/p MARCELLE 2) No CHF 3) Malnutrition, unable to put NG T in place 4) Hypokalemia 5) underlying sepsis 6) Hypophosphatemia Plan: Continue TPN for now Subjective Subjective She is still on TPN, no distress Objective Objective Last 24 Hour Vital Signs Date Time Temp Pulse Resp B/P Pulse Ox O2 Delivery O2 Flow Rate FiO2 07/22/16 20:00 98.4 111 22 128/93 98 Simple Mask 5.0 07/22/16 19:15 Simple Mask 5.0 40 07/22/16 19:15 97 Simple Mask 5.0 40 07/22/16 19:11 99 07/22/16 18:33 104 142/92 07/22/16 16:00 98.1 104 22 142/92 98 Simple Mask 5.0 07/22/16 15:09 101 07/22/16 12:18 97.9 114 20 129/83 98 Simple Mask 5.0 07/22/16 12:15 103 129/81 07/22/16 11:25 87 07/22/16 08:00 98.6 93 20 126/78 99 Simple Mask 07/22/16 08:00 98.6 97 20 126/78 98 Simple Mask 5.0 07/22/16 07:54 98 07/22/16 06:58 98 Simple Mask 6.0 45 07/22/16 06:58 Simple Mask 6.0 45 07/22/16 06:35 107 135/78 07/22/16 04:00 107 07/22/16 04:00 99.0 90 32 135/78 99 Non-Rebreather 07/22/16 00:56 89 128/76 07/22/16 00:00 99.1 101 22 128/74 98 Non-Rebreather 07/22/16 00:00 101 07/22/16 00:00 99.1 98 32 128/74 98 Non-Rebreather Intake and Output 07/21/16 07/22/16 19:00 07:00 Intake Total 774.8 ml 609.8 ml Output Total 400 ml 735 ml Balance 374.8 ml -125.2 ml IV Total 774.8 ml 609.8 ml Output Urine Total 350 ml 600 ml Gastric Drainage Total 50 ml 135 ml Laboratory Tests 07/22/16 03:50: Sodium Level 137, Potassium Level 4.4, Chloride Level 103, Carbon Dioxide Level 20, Anion Gap 14, Blood Urea Nitrogen 15, Creatinine 0.7, Estimat Glomerular Filtration Rate , Glucose Level 187H, Calcium Level 8.0L, Phosphorus Level 2.0L , Magnesium Level 2.0, Total Bilirubin 0.5, Aspartate Amino Transf (AST/SGOT) 23 , Alanine Aminotransferase (ALT/SGPT) 15, Alkaline Phosphatase 78, Total Protein 5.8L, Albumin 1.9L, Globulin 3.9, Albumin/Globulin Ratio 0.4L 07/22/16 14:00: Urine Color Yellow, Urine Appearance Slightly cloudy, Urine pH 6, Urine Specific [place] 1.015, Urine Protein 3+H, Urine Glucose (UA) Negative, Urine Ketones Negative, Urine Occult Blood 5+H, Urine Nitrite Negative, Urine Bilirubin Negative, Urine Urobilinogen Normal, Urine Leukocyte Esterase 2+H, Urine RBC 15-20H, Urine WBC 10-15H, Urine Squamous Epithelial Cells Few, Urine Bacteria Few, Urine Yeast ModerateH Height (Feet): 5 Height (Inches): 1.00 Weight (Pounds): 101 General Appearance: WD/WN, no apparent distress, cachetic EENT: PERRL/EOMI Neck: non-tender Cardiovascular: normal rate, regular rhythm, no JVD Respiratory/Chest: rhonchi - bilaterally Abdomen: non tender, soft Neurologic: unresponsive SKYLAR FRIEDMAN Jul 22, 2016 23:27
[2016-07-23] MEDS: Metoprolol 5mg/5ml Inj IVPB SCH ×3 (00:13→20:58)
[2016-07-23] MEDS: NovoLOG Insulin Flexpen SUBQ SCH ×4 (00:14→18:21)
[2016-07-23 00:41] VITALS: BP 129/71
--- NOTE | 2016-07-23 02:57 | Progress Note ---
DATE: 07/22/2016 CARDIOLOGY PROGRESS NOTE SUBJECTIVE: The patient is status post surgical G-tube. She remains on TPN. No nutrition by G-tube has yet been initiated due to postoperative ileus exam. OBJECTIVE: VITAL SIGNS: Blood pressure of 128/93, pulse 111, respirations 22, and afebrile. LUNGS: Bilateral breath sounds with rhonchi. HEART: Regular rhythm. Rapid rate. Normal S1 and S2. ABDOMEN: Soft. Trace edema. LABORATORY DATA: Albumin is 1.9. Potassium 4.4, sodium 137, bicarbonate 20, BUN 15, creatinine 0.7, and magnesium 2. Urinalysis with moderate yeast. The patient is still responsive, was severely withdrawn. IMPRESSION: 1. Severe protein-calorie malnutrition. 2. Ischemic cardiomyopathy. 3. Hypothyroidism. 4. Adrenocortical insufficiency. 5. Chronic systolic and diastolic congestive heart failure. 6. Urinary tract infection with sepsis. 7. Fungal cystitis. PLAN: 1. TPN pending initiation of feedings by G-tube. 2. Steroid taper. 3. Add Diflucan. 4. Follow up lab studies. 5. Continue IV beta-crystal until able to use G-tube and then titrate anti-failure regimen based on clinical parameters. Yohan Corbett M.D. DR: HERVE JOB#: [id number] CC:
[2016-07-23 04:00] VITALS: BP 126/64
[2016-07-23 04:35] LABS: MEAN CORPUSCULAR HEMOGLOBIN 30.5 PG (27.0-31.0); MEAN CORPUSCULAR HGB CONC 33.7 G/DL (32.0-36.0); MEAN CORPUSCULAR VOLUME 90 FL (80-99); MEAN PLATELET VOLUME 11.5 FL (6.5-10.1); PLATELET COUNT 175 K/UL (150-450); RED BLOOD COUNT 3.36 M/UL (4.20-5.40); RED CELL DISTRIBUTION WIDTH 14.5 % (11.6-14.8)
[2016-07-23 04:40] LABS: WHITE BLOOD COUNT 25.3 K/UL (4.8-10.8)
[2016-07-23 08:00] VITALS: BP 132/88
[2016-07-23 08:31] LABS: BAND NEUTROPHILS % (MANUAL) 0 % (0-8); BASOPHILS % (MANUAL) 0 % (0-2); EOSINOPHILS % (MANUAL) 0 % (0-3); LYMPHOCYTES % (MANUAL) 5 % (20-45); NEUTROPHILS % (MANUAL) 94 % (45-75); PLATELET ESTIMATE ADEQUATE; PLATELET MORPHOLOGY NORMAL; TOTAL CELLS COUNTED 100
[2016-07-23 08:32] LABS: HYPOCHROMASIA 1+
[2016-07-23] MEDS: Solu-MEDROL 125mg Inj IVP SCH (08:40)
[2016-07-23] MEDS: Pantoprazole Inj IVP SCH (08:40)
[2016-07-23] MEDS: Aspirin Baby 81mg ORAL SCH ×2 (08:40→08:50)
--- NOTE | 2016-07-23 08:45 | Critical Care Progress Note ---
Assessment/Plan Assessment/Plan IMPRESSION: Respiratory failure, resolved, presumed sepsis, shock, hypothermia, hypotension-recurrent, history of dementia , history congestive heart failure, history of coronary artery disease, history of hypertension, possible acute on chronic renal failure, significant lactic acidemia, protein-calorie malnutrition, and profound leukocytosis-resolved; fevers PLAN pulmonary care reviewed and discussed fluid management and keep negative cardiology follow up chest xr to follow exam noted and edited care reviewed in detail optimize and advance care as able monitor for aspiration and congestion follow up closely as fairly labile transition to SNF medications/laboratory data/nursing notes reviewed in detail note reviewed and edited care discussed with RN and RT Critical Care - Subjective ROS Limited/Unobtainable: Yes Condition: stable EKG Rhythm: Sinus Rhythm Residuals: minimal Tube Feeding Tolerated: yes I&O: Intake and Output 07/22/16 07/23/16 19:00 07:00 Intake Total 719.8 ml 714.8 ml Output Total 370 ml 680 ml Balance 349.8 ml 34.8 ml IV Total 719.8 ml 714.8 ml Output Urine Total 320 ml 600 ml Gastric Drainage Total 50 ml 80 ml # Bowel Movements 1 Critical Care - Objective ET-Tube: 8.0 ET Position: 24 Last 24 Hour Vital Signs Date Time Temp Pulse Resp B/P Pulse Ox O2 Delivery O2 Flow Rate FiO2 07/23/16 06:13 85 122/71 07/23/16 04:00 97.5 98 28 126/64 99 Non-Rebreather 07/23/16 03:47 89 07/23/16 00:41 98.4 102 28 129/71 96 Non-Rebreather 5.0 07/23/16 00:13 102 129/71 07/23/16 00:00 102 07/22/16 20:00 98.4 111 22 128/93 98 Simple Mask 5.0 07/22/16 19:15 Simple Mask 5.0 40 07/22/16 19:15 97 Simple Mask 5.0 40 07/22/16 19:11 99 07/22/16 18:33 104 142/92 07/22/16 16:00 98.1 104 22 142/92 98 Simple Mask 5.0 07/22/16 15:09 101 07/22/16 12:18 97.9 114 20 129/83 98 Simple Mask 5.0 2/8/17 12:15 103 129/81 2/8/17 11:25 87 Objective: GENERAL: A well-developed female, NAD HEENT: Fairly negative. NAD NECK: Supple. No jugular venous distention. LUNGS: moderate breath sounds without rhonchi; Moderate air entry. minimal rhonchi CARDIAC: S1 and S2. RRR without murmurs, rubs, or gallops. ABDOMEN: Soft, nontender, and nondistended. no HSM; GT EXTREMITIES: No cyanosis or clubbing. No edema. NEUROLOGICAL: Grossly nonfocal. contracted and withdrawn reviewed and edited Accucheck: 149 MARCELO [place] Jul 23, 2016 08:45
--- NOTE | 2016-07-23 08:50 | General Progress Note ---
Assessment/Plan Problem List: (1) Hypothyroid ICD Codes: E03.9 - Hypothyroid SNOMED: 94969512 (2) Septic shock ICD Codes: A41.9 - Sepsis, unspecified organism; R65.21 - Severe sepsis with septic shock SNOMED: 09556047 (3) Acute renal failure ICD Codes: N17.9 - Acute kidney failure, unspecified SNOMED: 45407364 Qualifiers: Qualified Codes: N17.0 - Acute kidney failure with tubular necrosis (4) Sepsis ICD Codes: A41.9 - Sepsis, unspecified organism SNOMED: 79476976 (5) Altered mental status ICD Codes: R41.82 - Altered mental status, unspecified SNOMED: 024749073 Qualifiers: Qualified Codes: R41.0 - Disorientation, unspecified (6) Acute delirium ICD Codes: R41.0 - Acute delirium SNOMED: 7926754 (7) UTI (lower urinary tract infection) ICD Codes: N39.0 - UTI (lower urinary tract infection) SNOMED: 4812326 Status: stable, progressing Assessment/Plan tpn iv abx per id iv steroids - weaning resp rx gt feeds ordered at low rate remains tenuous Subjective ROS Limited/Unobtainable: Yes Constitutional: Reports: malaise, weakness HEENT: Reports: no symptoms Cardiovascular: Reports: no symptoms Respiratory: Reports: shortness of breath Gastrointestinal/Abdominal: Reports: no symptoms Genitourinary: Reports: no symptoms Neurologic/Psychiatric: Reports: pre-existing deficit Endocrine: Reports: no symptoms Hematologic/Lymphatic: Reports: anemia Allergies: Coded Allergies: No Known Allergies (Unverified , 04/18/12) All Systems: reviewed and negative except above Subjective on tpn no events. sob/wheezing much better. less congested. s/p surgical gt. minimal output from gt on facemask now surgery noted. Objective Last 24 Hour Vital Signs Date Time Temp Pulse Resp B/P Pulse Ox O2 Delivery O2 Flow Rate FiO2 07/23/16 06:13 85 122/71 07/23/16 04:00 97.5 98 28 126/64 99 Non-Rebreather 07/23/16 03:47 89 07/23/16 00:41 98.4 102 28 129/71 96 Non-Rebreather 5.0 07/23/16 00:13 102 129/71 07/23/16 00:00 102 2/8/17 20:00 98.4 111 22 128/93 98 Simple Mask 5.0 07/22/16 19:15 Simple Mask 5.0 40 07/22/16 19:15 97 Simple Mask 5.0 40 07/22/16 19:11 99 07/22/16 18:33 104 142/92 07/22/16 16:00 98.1 104 22 142/92 98 Simple Mask 5.0 07/22/16 15:09 101 07/22/16 12:18 97.9 114 20 129/83 98 Simple Mask 5.0 07/22/16 12:15 103 129/81 07/22/16 11:25 87 Intake and Output 07/22/16 07/23/16 19:00 07:00 Intake Total 719.8 ml 714.8 ml Output Total 370 ml 680 ml Balance 349.8 ml 34.8 ml IV Total 719.8 ml 714.8 ml Output Urine Total 320 ml 600 ml Gastric Drainage Total 50 ml 80 ml # Bowel Movements 1 Laboratory Tests 07/22/16 14:00: Urine Color Yellow, Urine Appearance Slightly cloudy, Urine pH 6, Urine Specific [place] 1.015, Urine Protein 3+H, Urine Glucose (UA) Negative, Urine Ketones Negative, Urine Occult Blood 5+H, Urine Nitrite Negative, Urine Bilirubin Negative, Urine Urobilinogen Normal, Urine Leukocyte Esterase 2+H, Urine RBC 15-20H, Urine WBC 10-15H, Urine Squamous Epithelial Cells Few, Urine Bacteria Few, Urine Yeast ModerateH 07/23/16 03:30: White Blood Count 25.3*H, Red Blood Count 3.36L, Hemoglobin 10.2L, Hematocrit 30.4L, Mean Corpuscular Volume 90, Mean Corpuscular Hemoglobin 30.5, Mean Corpuscular Hemoglobin Concent 33.7, Red Cell Distribution Width 14.5, Platelet Count 175, Mean Platelet Volume 11.5H, Neutrophils (%) (Auto) , Lymphocytes (%) (Auto) , Monocytes (%) (Auto) , Eosinophils (%) (Auto) , Basophils (%) (Auto) , Differential Total Cells Counted 100, Neutrophils % (Manual) 94H, Lymphocytes % (Manual) 5L, Monocytes % (Manual) 1, Eosinophils % (Manual) 0, Basophils % ( Manual) 0, Band Neutrophils 0, Platelet Estimate Adequate, Platelet Morphology Normal, Hypochromasia 1+, Sodium Level [Pending], Potassium Level [Pending], Chloride Level [Pending], Carbon Dioxide Level [Pending], Blood Urea Nitrogen [ Pending], Creatinine [Pending], Estimat Glomerular Filtration Rate [Pending], Glucose Level [Pending], Calcium Level [Pending], Magnesium Level [Pending], Total Bilirubin [Pending], Aspartate Amino Transf (AST/SGOT) [Pending], Alanine Aminotransferase (ALT/SGPT) [Pending], Alkaline Phosphatase [Pending], Pro-B- Type Natriuretic Peptide [Pending], Total Protein [Pending], Albumin [Pending], Globulin [Pending] Height (Feet): 5 Height (Inches): 1.00 Weight (Pounds): 101 Objective General Appearance: WD/WN, lethargic, confused Neck: supple Cardiovascular: normal rate, regular rhythm Respiratory/Chest: diffuse wheezing Abdomen: normal bowel sounds, non tender, soft, no organomegaly Edema: no edema noted Arm (L), no edema noted Arm (R), no edema noted Leg (L), no edema noted Leg (R), no edema noted Pedal (L), no edema noted Pedal (R), no edema noted Generalized Neurologic: disoriented Skin: normal pigmentation, warm/dry HA FRANCIS Jul 23, 2016 08:50
[2016-07-23 09:05] LABS: ALANINE AMINOTRANSFERASE 28 U/L (3-33); ALBUMIN/GLOBULIN RATIO 0.4 (1.0-2.7); ANION GAP 14 (5-15); ASPARTATE AMINO TRANSFERASE 40 U/L (5-40); CALCIUM 8.1 mg/dL (8.6-10.2); CARBON DIOXIDE 22 mEQ/L (20-30); CHLORIDE 102 mEQ/L (98-107); CREATININE 0.9 mg/dL (0.5-0.9); HEMOLYSIS 5; POTASSIUM 4.2 mEQ/L (3.4-4.9); SODIUM 138 mEQ/L (135-145); TOTAL PROTEIN 5.2 g/dL (6.6-8.7)
[2016-07-23 09:14] LABS: MAGNESIUM 1.9 mg/dL (1.7-2.5)
[2016-07-23 12:00] VITALS: BP 119/57
[2016-07-23] MEDS ORDERED: Metoprolol 5mg/5ml Inj IVP SCH (12:47)
[2016-07-23] MEDS: Metoprolol 5mg/5ml Inj IVP SCH ×2 (12:58→18:19)
[2016-07-23] MEDS: Cefepime HCl 1 GM in D5W 55 ML IVPB SCH (12:59)
--- NOTE | 2016-07-23 13:25 | Wound Care Consultation ---
Wound Assessment Wound Assessment #1: Wound Number: #1 Wound Present on Admission: Yes New Wound: No Status Change of Wound: No Wound Location Body Site: perineal area Wound Type: chemical burn - RESOLVED. Percent of Wound [place]/Red: 100 Wound Drainage Amount: None Wound Drainage Odor: None/Absent Tissue Surrounding Wound: Intact Wound General Appearance: Open to air Wound Assessment #2: Wound Number: #2 Wound Present on Admission: No New Wound: Yes Status Change of Wound: No Wound Location Body Site Modif: left Wound Location Body Site: metatarsal head - 5TH Wound Type: pressure ulcer Mau Test: Does not Mau Pressure Ulcer Stage: deep tissue injury Wound Thickness: Full Thickness Wound Length: 3.0 Wound Width: 3.0 Wound Depth: UTD Percent of Wound Purple/Maroon: 100 Wound Drainage Amount: None Wound Drainage Odor: None/Absent Tissue Surrounding Wound: Intact Wound General Appearance: Reddened Wound Comment #1 perineal chemical burn -RESOLVED. #2 Left 5th metatarsal head Deep tissue injury. Recommendation. -Local wound care as ordered. -Low air loss overlay mattress (SPR). -Keep clean and dry. -Optimize nutrition. -Heel protectors. -Offload both heels and feet. -Avoid shear and friction. -Turn and reposition. -Assess and notify MD for any changes of condition. upon reassessment noted perineal chemical burn resolved, treatment was effective. upon reassessment noted left 5th metatarsal head deep tissue injury.skin remains intact to site at this time. Recommendation -Local wound care as ordered. -Low air loss overlay mattress.(spr). -Keep clean and dry. -Optimize nutrition. -Offload affected site. -Avoid shear and friction. -Apply heel protectors. -Assess and notify MD for any changes of condition noted. YURI GONZALEZ Jul 23, 2016 13:25
--- NOTE | 2016-07-23 14:45 | Infectious Diseases Prog Note ---
Assessment/Plan Assessment/Plan A 1. Sepsis 2. UTI 4. Anemia 5. Dysphagia 6. leucocytosis 7. Atelectasis P 1. Change Cefepime to Zosyn 2. will f/u cultures Subjective ROS Limited/Unobtainable: Yes Allergies: Coded Allergies: No Known Allergies (Unverified , 04/18/12) Objective Vital Signs Last 24 Hour Vital Signs Date Time Temp Pulse Resp B/P Pulse Ox O2 Delivery O2 Flow Rate FiO2 07/23/16 12:58 93 132/88 07/23/16 12:05 89 07/23/16 12:00 98.2 95 19 119/57 99 Simple Mask 5.0 07/23/16 08:00 97.2 93 18 132/88 99 Simple Mask 5.0 07/23/16 08:00 93 07/23/16 06:13 85 122/71 07/23/16 04:00 97.5 98 28 126/64 99 Non-Rebreather 07/23/16 03:47 89 07/23/16 00:41 98.4 102 28 129/71 96 Non-Rebreather 5.0 07/23/16 00:13 102 129/71 07/23/16 00:00 102 07/22/16 20:00 98.4 111 22 128/93 98 Simple Mask 5.0 07/22/16 19:15 Simple Mask 5.0 40 07/22/16 19:15 97 Simple Mask 5.0 40 07/22/16 19:11 99 07/22/16 18:33 104 142/92 07/22/16 16:00 98.1 104 22 142/92 98 Simple Mask 5.0 07/22/16 15:09 101 Height (Feet): 5 Height (Inches): 1.00 Weight (Pounds): 101 Respiratory/Chest: lungs clear, other - O2 by mask Cardiovascular: normal rate Abdomen: soft, non tender, other - GT feeding Extremities: no edema Neurologic/Psychiatric: aphasia Microbiology Date/Time Source Procedure Growth Status 07/22/16 14:00 Urine,Clean Catch Urine Culture - Preliminary Resulted Laboratory Tests Test 07/23/16 03:30 White Blood Count 25.3 K/UL (4.8-10.8) *H Red Blood Count 3.36 M/UL (4.20-5.40) L Hemoglobin 10.2 G/DL (12.0-16.0) L Hematocrit 30.4 % (37.0-47.0) L Mean Corpuscular Volume 90 FL (80-99) Mean Corpuscular Hemoglobin 30.5 PG (27.0-31.0) Mean Corpuscular Hemoglobin Concent 33.7 G/DL (32.0-36.0) Red Cell Distribution Width 14.5 % (11.6-14.8) Platelet Count 175 K/UL (150-450) Mean Platelet Volume 11.5 FL (6.5-10.1) H Neutrophils (%) (Auto) % (45.0-75.0) Lymphocytes (%) (Auto) % (20.0-45.0) Monocytes (%) (Auto) % (1.0-10.0) Eosinophils (%) (Auto) % (0.0-3.0) Basophils (%) (Auto) % (0.0-2.0) Differential Total Cells Counted 100 Neutrophils % (Manual) 94 % (45-75) H Lymphocytes % (Manual) 5 % (20-45) L Monocytes % (Manual) 1 % (1-10) Eosinophils % (Manual) 0 % (0-3) Basophils % (Manual) 0 % (0-2) Band Neutrophils 0 % (0-8) Platelet Estimate Adequate Platelet Morphology Normal Hypochromasia 1+ Sodium Level 138 mEQ/L (135-145) Potassium Level 4.2 mEQ/L (3.4-4.9) Chloride Level 102 mEQ/L (98-107) Carbon Dioxide Level 22 mEQ/L (20-30) Anion Gap 14 (5-15) Blood Urea Nitrogen 22 mg/dL (7-23) Creatinine 0.9 mg/dL (0.5-0.9) Estimat Glomerular Filtration Rate mL/min (>60) Glucose Level 169 mg/dL (74-106) H Calcium Level 8.1 mg/dL (8.6-10.2) L Magnesium Level 1.9 mg/dL (1.7-2.5) Total Bilirubin 0.3 mg/dL (0.0-1.2) Aspartate Amino Transf (AST/SGOT) 40 U/L (5-40) Alanine Aminotransferase (ALT/SGPT) 28 U/L (3-33) Alkaline Phosphatase 80 U/L (35-104) Pro-B-Type Natriuretic Peptide > 77742 pg/mL (0-450) H Total Protein 5.2 g/dL (6.6-8.7) L Albumin 1.6 g/dL (3.5-5.2) L Globulin 3.6 g/dL Albumin/Globulin Ratio 0.4 (1.0-2.7) L Current Medications Medications (Trade) Dose Ordered Sig/Trip Route PRN Reason Start Time Stop Time Status Last Admin Dose Admin Acetaminophen (Tylenol) 650 mg Q4H PRN NG Prn Headache/Temp > 101 07/16/16 23:34 08/15/16 23:33 07/22/16 20:21 Aspirin (ASA) 81 mg DAILY ORAL 07/17/16 09:00 08/16/16 08:59 07/23/16 08:50 Atorvastatin Calcium (Lipitor) 20 mg BEDTIME ORAL 07/17/16 21:00 08/16/16 20:59 07/22/16 20:21 Cefepime HCl 1 gm/ Dextrose 55 ml @ 110 mls/hr Q24H IVPB 07/20/16 13:00 07/27/16 12:59 07/23/16 12:59 Dextrose (D10w) 1,000 ml @ 0 mls/hr Q24H PRN IV TPN interrupted or unavailable 07/16/16 23:35 08/15/16 23:34 Dextrose (Dextrose 50%) STAT PRN IV Hypoglycemia 07/17/16 17:30 08/16/16 17:29 Fat Emulsion Intravenous 250 ml/Amino Acids/ Electrolytes/ Dextrose 1,330 ml @ 55.417 mls/ hr Q24H IV 07/19/16 21:00 08/18/16 20:59 07/22/16 21:03 Fluconazole (Diflucan 100mg/ 50ml) 50 ml @ 50 mls/hr Q24H IV 07/23/16 04:00 07/30/16 03:59 07/23/16 04:58 Insulin Aspart (NovoLOG) Q6HR SUBQ 07/17/16 21:00 08/16/16 20:59 07/23/16 06:14 Levothyroxine Sodium 100 mcg 100 mcg DAILY IV 07/19/16 09:00 08/18/16 08:59 07/23/16 08:43 Methylprednisolone Sodium Succinate (Solu-MEDROL) 30 mg DAILY IVP 07/24/16 09:00 08/23/16 08:59 Metoprolol Tartrate (Lopressor) 5 mg EVERY 6 HOURS IVP 07/23/16 12:00 08/22/16 11:59 07/23/16 12:58 Pantoprazole (Protonix) 40 mg DAILY IVP 07/17/16 09:00 08/16/16 08:59 07/23/16 08:40 JAMEEL TRIPATHI Jul 23, 2016 14:45
--- NOTE | 2016-07-23 15:09 | Nephrology Progress Note ---
Assessment/Plan Assessment 1) S/p MARCELLE 2) No CHF 3) Malnutrition, unable to put NG T in place 4) Hypokalemia 5) underlying sepsis 6) Hypophosphatemia Plan: Agree with stopping TPN Continue TF Subjective Subjective She is off of TPN, started obn TF, tolerating it so far, WBC is 25K Objective Objective Last 24 Hour Vital Signs Date Time Temp Pulse Resp B/P Pulse Ox O2 Delivery O2 Flow Rate FiO2 07/23/16 12:58 93 132/88 07/23/16 12:05 89 07/23/16 12:00 98.2 95 19 119/57 99 Simple Mask 5.0 07/23/16 08:00 97.2 93 18 132/88 99 Simple Mask 5.0 07/23/16 08:00 93 07/23/16 06:13 85 122/71 07/23/16 04:00 97.5 98 28 126/64 99 Non-Rebreather 07/23/16 03:47 89 07/23/16 00:41 98.4 102 28 129/71 96 Non-Rebreather 5.0 07/23/16 00:13 102 129/71 07/23/16 00:00 102 07/22/16 20:00 98.4 111 22 128/93 98 Simple Mask 5.0 07/22/16 19:15 Simple Mask 5.0 40 07/22/16 19:15 97 Simple Mask 5.0 40 07/22/16 19:11 99 07/22/16 18:33 104 142/92 07/22/16 16:00 98.1 104 22 142/92 98 Simple Mask 5.0 07/22/16 15:09 101 Intake and Output 07/22/16 07/23/16 19:00 07:00 Intake Total 719.8 ml 714.8 ml Output Total 370 ml 680 ml Balance 349.8 ml 34.8 ml IV Total 719.8 ml 714.8 ml Output Urine Total 320 ml 600 ml Gastric Drainage Total 50 ml 80 ml # Bowel Movements 1 Laboratory Tests 07/23/16 03:30: White Blood Count 25.3*H, Red Blood Count 3.36L, Hemoglobin 10.2L, Hematocrit 30.4L, Mean Corpuscular Volume 90, Mean Corpuscular Hemoglobin 30.5, Mean Corpuscular Hemoglobin Concent 33.7, Red Cell Distribution Width 14.5, Platelet Count 175, Mean Platelet Volume 11.5H, Neutrophils (%) (Auto) , Lymphocytes (%) (Auto) , Monocytes (%) (Auto) , Eosinophils (%) (Auto) , Basophils (%) (Auto) , Differential Total Cells Counted 100, Neutrophils % (Manual) 94H, Lymphocytes % (Manual) 5L, Monocytes % (Manual) 1, Eosinophils % (Manual) 0, Basophils % ( Manual) 0, Band Neutrophils 0, Platelet Estimate Adequate, Platelet Morphology Normal, Hypochromasia 1+, Sodium Level 138, Potassium Level 4.2, Chloride Level 102, Carbon Dioxide Level 22, Anion Gap 14, Blood Urea Nitrogen 22, Creatinine 0.9, Estimat Glomerular Filtration Rate , Glucose Level 169H, Calcium Level 8.1L , Magnesium Level 1.9, Total Bilirubin 0.3, Aspartate Amino Transf (AST/SGOT) 40 , Alanine Aminotransferase (ALT/SGPT) 28, Alkaline Phosphatase 80, Pro-B-Type Natriuretic Peptide > 26559U, Total Protein 5.2L, Albumin 1.6L, Globulin 3.6, Albumin/Globulin Ratio 0.4L Height (Feet): 5 Height (Inches): 1.00 Weight (Pounds): 101 General Appearance: WD/WN, lethargic EENT: PERRL/EOMI, normal ENT inspection Neck: non-tender, normal alignment Cardiovascular: normal rate, regular rhythm Respiratory/Chest: rhonchi - bilaterally Abdomen: normal bowel sounds, non tender Neurologic: unresponsive SKYLAR FRIEDMAN Jul 23, 2016 15:09
[2016-07-23] MEDS ORDERED: Tubing IV Secondary IV ONE (15:31)
[2016-07-23] MEDS ORDERED: NS 275ml ONE (15:31)
[2016-07-23 16:00] VITALS: BP 105/53
--- NOTE | 2016-07-23 17:39 | General Progress Note ---
Assessment/Plan Assessment/Plan Assessment - Leukocytosis after steroids - dysphagia - anemia - hyponatremia, hypophosphatemia, hypokalemia - OBS - malnutrition --> TPN - s/p surgical GT Recommendation - TPN / monitor labs - Free water restriction - NPO via oral route - continue TF Subjective Allergies: Coded Allergies: No Known Allergies (Unverified , 04/18/12) Subjective non communicative on TPN POD #3 s/p surgical GT HOB elevated Objective Last 24 Hour Vital Signs Date Time Temp Pulse Resp B/P Pulse Ox O2 Delivery O2 Flow Rate FiO2 07/23/16 16:24 100 07/23/16 16:00 97.2 84 16 105/53 100 Simple Mask 5.0 07/23/16 12:58 93 132/88 07/23/16 12:05 89 07/23/16 12:00 98.2 95 19 119/57 99 Simple Mask 5.0 07/23/16 08:00 97.2 93 18 132/88 99 Simple Mask 5.0 07/23/16 08:00 93 07/23/16 06:13 85 122/71 07/23/16 04:00 97.5 98 28 126/64 99 Non-Rebreather 07/23/16 03:47 89 07/23/16 00:41 98.4 102 28 129/71 96 Non-Rebreather 5.0 07/23/16 00:13 102 129/71 07/23/16 00:00 102 07/22/16 20:00 98.4 111 22 128/93 98 Simple Mask 5.0 07/22/16 19:15 Simple Mask 5.0 40 07/22/16 19:15 97 Simple Mask 5.0 40 07/22/16 19:11 99 07/22/16 18:33 104 142/92 Intake and Output 07/22/16 07/23/16 19:00 07:00 Intake Total 719.8 ml 714.8 ml Output Total 370 ml 680 ml Balance 349.8 ml 34.8 ml IV Total 719.8 ml 714.8 ml Output Urine Total 320 ml 600 ml Gastric Drainage Total 50 ml 80 ml # Bowel Movements 1 Laboratory Tests 07/23/16 03:30: White Blood Count 25.3*H, Red Blood Count 3.36L, Hemoglobin 10.2L, Hematocrit 30.4L, Mean Corpuscular Volume 90, Mean Corpuscular Hemoglobin 30.5, Mean Corpuscular Hemoglobin Concent 33.7, Red Cell Distribution Width 14.5, Platelet Count 175, Mean Platelet Volume 11.5H, Neutrophils (%) (Auto) , Lymphocytes (%) (Auto) , Monocytes (%) (Auto) , Eosinophils (%) (Auto) , Basophils (%) (Auto) , Differential Total Cells Counted 100, Neutrophils % (Manual) 94H, Lymphocytes % (Manual) 5L, Monocytes % (Manual) 1, Eosinophils % (Manual) 0, Basophils % ( Manual) 0, Band Neutrophils 0, Platelet Estimate Adequate, Platelet Morphology Normal, Hypochromasia 1+, Sodium Level 138, Potassium Level 4.2, Chloride Level 102, Carbon Dioxide Level 22, Anion Gap 14, Blood Urea Nitrogen 22, Creatinine 0.9, Estimat Glomerular Filtration Rate , Glucose Level 169H, Calcium Level 8.1L , Magnesium Level 1.9, Total Bilirubin 0.3, Aspartate Amino Transf (AST/SGOT) 40 , Alanine Aminotransferase (ALT/SGPT) 28, Alkaline Phosphatase 80, Pro-B-Type Natriuretic Peptide > 96344X, Total Protein 5.2L, Albumin 1.6L, Globulin 3.6, Albumin/Globulin Ratio 0.4L Height (Feet): 5 Height (Inches): 1.00 Weight (Pounds): 101 Objective Thin WW NCAT supple CTA RRR Soft Flat ND (+) GT (+) contractures (+) OBS KALEE SERRATO Jul 23, 2016 17:39
[2016-07-23] MEDS: Acetaminophen 650mg/20.3ml NG PRN (18:22)
[2016-07-23 20:00] VITALS: BP 116/71
[2016-07-23] MEDS: Atorvastatin 20mg tab ORAL SCH (21:15)
[2016-07-23] MEDS: Piperacillin/Tazobactam 3.375 GM in D5W 110 ML IVPB SCH (21:20)
--- NOTE | 2016-07-23 23:28 | Progress Note ---
DATE: 07/23/2016 CARDIOLOGY PROGRESS NOTE: SUBJECTIVE: The patient is status post surgical G-tube. She continues on TPN for nutrition. OBJECTIVE: VITAL SIGNS: Blood pressure is 105/53, pulse 84, respiratory rate 16, and afebrile. CHEST: Bilateral breath sounds. HEART: Regular rhythm and rate. Normal S1 and S2. ABDOMEN: Soft. G-tube site is intact. EXTREMITIES: With trace edema. LABORATORY DATA: White count is 25.3 and hemoglobin 10.2. Sodium is 138, potassium 4.2, bicarbonate 22, BUN 22, creatinine 0.9, glucose 169, and magnesium 1.9. Pro-natriuretic peptide is over 70,000 and albumin 1.6. IMPRESSION: 1. Acute on chronic diastolic congestive heart failure. 2. Severe protein-calorie malnutrition. 3. Dysphagia, status post surgical gastrostomy tube. 4. Hypothyroidism. 5. Leukocytosis, post steroid. 6. Ischemic heart disease. 7. Remains with serious condition and guarded prognosis. PLAN: 1. Cautious initiation of nutrition by G-tube. 2. Diuresis. 3. Taper off TPN once feedings are tolerated. 4. Add anti-failure therapy and monitor blood pressure parameters closely. Yohan Corbett M.D. DR: Janette JOB#: [id number] CC:
[2016-07-24] VITALS: BP 106/57
[2016-07-24] MEDS: Metoprolol 5mg/5ml Inj IVP SCH ×4 (00:30→18:00)
[2016-07-24] MEDS: NovoLOG Insulin Flexpen SUBQ SCH ×4 (01:02→18:12)
[2016-07-24 04:30] VITALS: BP 134/74
[2016-07-24] MEDS: Piperacillin/Tazobactam 3.375 GM in D5W 110 ML IVPB SCH ×3 (05:53→21:02)
[2016-07-24 06:19] LABS: MEAN CORPUSCULAR HEMOGLOBIN 29.7 PG (27.0-31.0); MEAN CORPUSCULAR HGB CONC 32.5 G/DL (32.0-36.0); MEAN CORPUSCULAR VOLUME 92 FL (80-99); PLATELET COUNT 184 K/UL (150-450); RED BLOOD COUNT 3.62 M/UL (4.20-5.40); RED CELL DISTRIBUTION WIDTH 14.7 % (11.6-14.8)
[2016-07-24 06:49] LABS: ALANINE AMINOTRANSFERASE 45 U/L (3-33); ALBUMIN/GLOBULIN RATIO 0.4 (1.0-2.7); ANION GAP 13 (5-15); ASPARTATE AMINO TRANSFERASE 52 U/L (5-40); CALCIUM 8.2 mg/dL (8.6-10.2); CARBON DIOXIDE 24 mEQ/L (20-30); CHLORIDE 103 mEQ/L (98-107); HEMOLYSIS 21; POTASSIUM 4.2 mEQ/L (3.4-4.9); SODIUM 140 mEQ/L (135-145); TOTAL PROTEIN 5.6 g/dL (6.6-8.7)
[2016-07-24 08:00] VITALS: BP 110/75
--- NOTE | 2016-07-24 08:59 | Critical Care Progress Note ---
Assessment/Plan Assessment/Plan IMPRESSION: Respiratory failure, resolved, presumed sepsis, shock, hypothermia, hypotension-recurrent, history of dementia , history congestive heart failure, history of coronary artery disease, history of hypertension, possible acute on chronic renal failure, significant lactic acidemia, protein-calorie malnutrition, and profound leukocytosis-resolved; fevers PLAN pulmonary care reviewed and discussed fluid management cardiology follow up chest xr to follow exam noted and edited care reviewed in detail optimize and advance care as able monitor for aspiration and congestion follow up closely as fairly labile transition to SNF when location is found medications/laboratory data/nursing notes reviewed in detail note reviewed and edited care discussed with RN and RT Critical Care - Subjective Interval Events: care noted discussed in detail ROS Limited/Unobtainable: Yes EKG Rhythm: Sinus Rhythm Residuals: minimal Tube Feeding Tolerated: yes I&O: Intake and Output 07/23/16 07/24/16 19:00 07:00 Intake Total 435.8 ml 567.5 ml Output Total 175 ml 1500 ml Balance 260.8 ml -932.5 ml Free Water 50 ml 50 ml IV Total 165.8 ml 187.5 ml Tube Feeding 220 ml 270 ml Other 60 ml Output Urine Total 175 ml 1500 ml # Bowel Movements 1 2 Critical Care - Objective ET-Tube: 8.0 ET Position: 24 Last 24 Hour Vital Signs Date Time Temp Pulse Resp B/P Pulse Ox O2 Delivery O2 Flow Rate FiO2 07/24/16 05:53 116 129/77 07/24/16 04:30 98.6 93 32 134/74 98 Venturi Mask 07/24/16 04:08 107 07/24/16 00:30 98 106/57 07/24/16 00:00 98.2 98 28 106/57 97 Venturi Mask 07/23/16 23:53 98 07/23/16 21:03 Simple Mask 5.0 40 07/23/16 21:02 96 Simple Mask 6.0 45 07/23/16 20:00 98.6 94 28 116/71 99 Simple Mask 5.0 07/23/16 19:24 81 07/23/16 18:19 102 124/73 07/23/16 16:24 100 07/23/16 16:00 97.2 84 16 105/53 100 Simple Mask 5.0 07/23/16 12:58 93 132/88 07/23/16 12:05 89 07/23/16 12:00 98.2 95 19 119/57 99 Simple Mask 5.0 Labs: Labs Test 07/21/16 11:00 07/22/16 03:50 07/22/16 14:00 07/23/16 03:30 White Blood Count 26.6 K/UL (4.8-10.8) 25.3 K/UL (4.8-10.8) Red Blood Count 3.83 M/UL (4.20-5.40) 3.36 M/UL (4.20-5.40) Hemoglobin 11.4 G/DL (12.0-16.0) 10.2 G/DL (12.0-16.0) Hematocrit 33.9 % (37.0-47.0) 30.4 % (37.0-47.0) Mean Corpuscular Volume 89 FL (80-99) 90 FL (80-99) Mean Corpuscular Hemoglobin 29.7 PG (27.0-31.0) 30.5 PG (27.0-31.0) Mean Corpuscular Hemoglobin Concent 33.5 G/DL (32.0-36.0) 33.7 G/DL (32.0-36.0) Red Cell Distribution Width 13.9 % (11.6-14.8) 14.5 % (11.6-14.8) Platelet Count 223 K/UL (150-450) 175 K/UL (150-450) Mean Platelet Volume 8.9 FL (6.5-10.1) 11.5 FL (6.5-10.1) Neutrophils (%) (Auto) % (45.0-75.0) % (45.0-75.0) Lymphocytes (%) (Auto) % (20.0-45.0) % (20.0-45.0) Monocytes (%) (Auto) % (1.0-10.0) % (1.0-10.0) Eosinophils (%) (Auto) % (0.0-3.0) % (0.0-3.0) Basophils (%) (Auto) % (0.0-2.0) % (0.0-2.0) Differential Total Cells Counted 100 100 Neutrophils % (Manual) 93 % (45-75) 94 % (45-75) Lymphocytes % (Manual) 3 % (20-45) 5 % (20-45) Monocytes % (Manual) 3 % (1-10) 1 % (1-10) Eosinophils % (Manual) 0 % (0-3) 0 % (0-3) Basophils % (Manual) 0 % (0-2) 0 % (0-2) Band Neutrophils 1 % (0-8) 0 % (0-8) Platelet Estimate Adequate Adequate Platelet Morphology Normal Normal Red Blood Cell Morphology Normal Sodium Level 137 mEQ/L (135-145) 137 mEQ/L (135-145) 138 mEQ/L (135-145) Potassium Level 4.0 mEQ/L (3.4-4.9) 4.4 mEQ/L (3.4-4.9) 4.2 mEQ/L (3.4-4.9) Chloride Level 100 mEQ/L (98-107) 103 mEQ/L (98-107) 102 mEQ/L (98-107) Carbon Dioxide Level 22 mEQ/L (20-30) 20 mEQ/L (20-30) 22 mEQ/L (20-30) Anion Gap 15 (5-15) 14 (5-15) 14 (5-15) Blood Urea Nitrogen 11 mg/dL (7-23) 15 mg/dL (7-23) 22 mg/dL (7-23) Creatinine 0.7 mg/dL (0.5-0.9) 0.7 mg/dL (0.5-0.9) 0.9 mg/dL (0.5-0.9) Estimat Glomerular Filtration Rate mL/min (>60) mL/min (>60) mL/min (>60) Glucose Level 182 mg/dL (74-106) 187 mg/dL (74-106) 169 mg/dL (74-106) Calcium Level 7.9 mg/dL (8.6-10.2) 8.0 mg/dL (8.6-10.2) 8.1 mg/dL (8.6-10.2) Total Bilirubin 0.4 mg/dL (0.0-1.2) 0.5 mg/dL (0.0-1.2) 0.3 mg/dL (0.0-1.2) Aspartate Amino Transf (AST/SGOT) 21 U/L (5-40) 23 U/L (5-40) 40 U/L (5-40) Alanine Aminotransferase (ALT/SGPT) 13 U/L (3-33) 15 U/L (3-33) 28 U/L (3-33) Alkaline Phosphatase 75 U/L (35-104) 78 U/L (35-104) 80 U/L (35-104) Total Protein 5.5 g/dL (6.6-8.7) 5.8 g/dL (6.6-8.7) 5.2 g/dL (6.6-8.7) Albumin 2.0 g/dL (3.5-5.2) 1.9 g/dL (3.5-5.2) 1.6 g/dL (3.5-5.2) Globulin 3.5 g/dL 3.9 g/dL 3.6 g/dL Albumin/Globulin Ratio 0.5 (1.0-2.7) 0.4 (1.0-2.7) 0.4 (1.0-2.7) Phosphorus Level 2.0 mg/dL (2.5-4.8) Magnesium Level 2.0 mg/dL (1.7-2.5) 1.9 mg/dL (1.7-2.5) Urine Color Yellow Urine Appearance Slightly cloudy Urine pH 6 (4.5-8.0) Urine Specific [place] 1.015 (1.005-1.035) Urine Protein 3+ (NEGATIVE) Urine Glucose (UA) Negative (NEGATIVE) Urine Ketones Negative (NEGATIVE) Urine Occult Blood 5+ (NEGATIVE) Urine Nitrite Negative (NEGATIVE) Urine Bilirubin Negative (NEGATIVE) Urine Urobilinogen Normal MG/DL (0.0-1.0) Urine Leukocyte Esterase 2+ (NEGATIVE) Urine RBC 15-20 /HPF (0 - 2) Urine WBC 10-15 /HPF (0 - 2) Urine Squamous Epithelial Cells Few /LPF (NONE/OCC) Urine Bacteria Few /HPF (NONE) Urine Yeast Moderate /HPF (NONE) Hypochromasia 1+ Pro-B-Type Natriuretic Peptide > 25610 pg/mL (0-450) Test 07/24/16 04:30 White Blood Count 23.0 K/UL (4.8-10.8) Red Blood Count 3.62 M/UL (4.20-5.40) Hemoglobin 10.8 G/DL (12.0-16.0) Hematocrit 33.1 % (37.0-47.0) Mean Corpuscular Volume 92 FL (80-99) Mean Corpuscular Hemoglobin 29.7 PG (27.0-31.0) Mean Corpuscular Hemoglobin Concent 32.5 G/DL (32.0-36.0) Red Cell Distribution Width 14.7 % (11.6-14.8) Platelet Count 184 K/UL (150-450) Mean Platelet Volume 11.0 FL (6.5-10.1) Neutrophils (%) (Auto) % (45.0-75.0) Lymphocytes (%) (Auto) % (20.0-45.0) Monocytes (%) (Auto) % (1.0-10.0) Eosinophils (%) (Auto) % (0.0-3.0) Basophils (%) (Auto) % (0.0-2.0) Sodium Level 140 mEQ/L (135-145) Potassium Level 4.2 mEQ/L (3.4-4.9) Chloride Level 103 mEQ/L (98-107) Carbon Dioxide Level 24 mEQ/L (20-30) Anion Gap 13 (5-15) Blood Urea Nitrogen 28 mg/dL (7-23) Creatinine 1.0 mg/dL (0.5-0.9) Estimat Glomerular Filtration Rate mL/min (>60) Glucose Level 120 mg/dL (74-106) Calcium Level 8.2 mg/dL (8.6-10.2) Total Bilirubin 0.6 mg/dL (0.0-1.2) Aspartate Amino Transf (AST/SGOT) 52 U/L (5-40) Alanine Aminotransferase (ALT/SGPT) 45 U/L (3-33) Alkaline Phosphatase 104 U/L (35-104) Total Protein 5.6 g/dL (6.6-8.7) Albumin 1.7 g/dL (3.5-5.2) Globulin 3.9 g/dL Albumin/Globulin Ratio 0.4 (1.0-2.7) Objective: GENERAL: A well-developed female, NAD HEENT: Fairly negative. NAD NECK: Supple. No jugular venous distention. LUNGS: moderate breath sounds without rhonchi; Moderate air entry. minimal rhonchi CARDIAC: S1 and S2. RRR without murmurs, rubs, or gallops. ABDOMEN: Soft, nontender, and nondistended. no HSM; GT EXTREMITIES: No cyanosis or clubbing. No edema. NEUROLOGICAL: Grossly nonfocal. contracted and withdrawn reviewed and edited Micro: Microbiology Date/Time Source Procedure Growth Status 07/22/16 14:00 Urine,Clean Catch Urine Culture - Preliminary Resulted Accucheck: 124 MARCELO [place] Jul 24, 2016 08:59
[2016-07-24] MEDS ORDERED: Ascorbic Acid 500mg tab ORAL SCH (09:00)
[2016-07-24 09:09] LABS: BAND NEUTROPHILS % (MANUAL) 2 % (0-8); BASOPHILS % (MANUAL) 0 % (0-2); EOSINOPHILS % (MANUAL) 1 % (0-3); LYMPHOCYTES % (MANUAL) 7 % (20-45); NEUTROPHILS % (MANUAL) 86 % (45-75); PLATELET ESTIMATE ADEQUATE; PLATELET MORPHOLOGY NORMAL; TOTAL CELLS COUNTED 100
[2016-07-24] MEDS: Aspirin Baby 81mg ORAL SCH (09:18)
[2016-07-24] MEDS: Solu-MEDROL 40mg Inj IVP SCH (09:18)
[2016-07-24] MEDS: Lisinopril 10mg tab GT SCH (09:19)
[2016-07-24] MEDS: Pantoprazole Inj IVP SCH (09:19)
--- NOTE | 2016-07-24 09:22 | General Progress Note ---
Assessment/Plan Problem List: (1) Hypothyroid ICD Codes: E03.9 - Hypothyroid SNOMED: 99331012 (2) Septic shock ICD Codes: A41.9 - Sepsis, unspecified organism; R65.21 - Severe sepsis with septic shock SNOMED: 69974148 (3) Acute renal failure ICD Codes: N17.9 - Acute kidney failure, unspecified SNOMED: 40038568 Qualifiers: Qualified Codes: N17.0 - Acute kidney failure with tubular necrosis (4) Sepsis ICD Codes: A41.9 - Sepsis, unspecified organism SNOMED: 26798035 (5) Altered mental status ICD Codes: R41.82 - Altered mental status, unspecified SNOMED: 657017921 Qualifiers: Qualified Codes: R41.0 - Disorientation, unspecified (6) Acute delirium ICD Codes: R41.0 - Acute delirium SNOMED: 0262825 (7) UTI (lower urinary tract infection) ICD Codes: N39.0 - UTI (lower urinary tract infection) SNOMED: 5527449 Assessment/Plan tpn iv abx per id iv steroids - weaning resp rx gt feeds ordered at low rate remains tenuous Subjective ROS Limited/Unobtainable: Yes Constitutional: Reports: malaise, weakness HEENT: Reports: no symptoms Cardiovascular: Reports: no symptoms Respiratory: Reports: no symptoms Gastrointestinal/Abdominal: Reports: difficulty swallowing Genitourinary: Reports: no symptoms Neurologic/Psychiatric: Reports: pre-existing deficit Endocrine: Reports: no symptoms Hematologic/Lymphatic: Reports: anemia Allergies: Coded Allergies: No Known Allergies (Unverified , 04/18/12) All Systems: reviewed and negative except above Subjective off tpn no events. sob/wheezing much better. less congested. s/p surgical gt. now on feeds on facemask now try to wean fio2 surgery noted. abx per id monitor wbc. dc to snf when tolerating feeds, wbc better, and when able to wean off face mask Objective Last 24 Hour Vital Signs Date Time Temp Pulse Resp B/P Pulse Ox O2 Delivery O2 Flow Rate FiO2 07/24/16 05:53 116 129/77 07/24/16 04:30 98.6 93 32 134/74 98 Venturi Mask 07/24/16 04:08 107 07/24/16 00:30 98 106/57 07/24/16 00:00 98.2 98 28 106/57 97 Venturi Mask 07/23/16 23:53 98 07/23/16 21:03 Simple Mask 5.0 40 07/23/16 21:02 96 Simple Mask 6.0 45 07/23/16 20:00 98.6 94 28 116/71 99 Simple Mask 5.0 07/23/16 19:24 81 07/23/16 18:19 102 124/73 07/23/16 16:24 100 07/23/16 16:00 97.2 84 16 105/53 100 Simple Mask 5.0 07/23/16 12:58 93 132/88 07/23/16 12:05 89 07/23/16 12:00 98.2 95 19 119/57 99 Simple Mask 5.0 Intake and Output 07/23/16 07/24/16 19:00 07:00 Intake Total 435.8 ml 567.5 ml Output Total 175 ml 1500 ml Balance 260.8 ml -932.5 ml Free Water 50 ml 50 ml IV Total 165.8 ml 187.5 ml Tube Feeding 220 ml 270 ml Other 60 ml Output Urine Total 175 ml 1500 ml # Bowel Movements 1 2 Laboratory Tests 07/24/16 04:30: White Blood Count 23.0*H, Red Blood Count 3.62L, Hemoglobin 10.8L, Hematocrit 33.1L, Mean Corpuscular Volume 92, Mean Corpuscular Hemoglobin 29.7, Mean Corpuscular Hemoglobin Concent 32.5, Red Cell Distribution Width 14.7, Platelet Count 184, Mean Platelet Volume 11.0H, Neutrophils (%) (Auto) , Lymphocytes (%) (Auto) , Monocytes (%) (Auto) , Eosinophils (%) (Auto) , Basophils (%) (Auto) , Differential Total Cells Counted 100, Neutrophils % (Manual) 86H, Lymphocytes % (Manual) 7L, Monocytes % (Manual) 4, Eosinophils % (Manual) 1, Basophils % ( Manual) 0, Band Neutrophils 2, Platelet Estimate Adequate, Platelet Morphology Normal, Giant Platelets Occasional, Red Blood Cell Morphology Normal, Sodium Level 140, Potassium Level 4.2, Chloride Level 103, Carbon Dioxide Level 24, Anion Gap 13, Blood Urea Nitrogen 28H, Creatinine 1.0H, Estimat Glomerular Filtration Rate , Glucose Level 120H, Calcium Level 8.2L, Total Bilirubin 0.6, Aspartate Amino Transf (AST/SGOT) 52H, Alanine Aminotransferase (ALT/SGPT) 45H, Alkaline Phosphatase 104, Total Protein 5.6L, Albumin 1.7L, Globulin 3.9, Albumin/Globulin Ratio 0.4L Height (Feet): 5 Height (Inches): 1.00 Weight (Pounds): 101 Objective General Appearance: WD/WN, lethargic, confused Neck: supple Cardiovascular: normal rate, regular rhythm Respiratory/Chest: diffuse wheezing Abdomen: normal bowel sounds, non tender, soft, no organomegaly Edema: no edema noted Arm (L), no edema noted Arm (R), no edema noted Leg (L), no edema noted Leg (R), no edema noted Pedal (L), no edema noted Pedal (R), no edema noted Generalized Neurologic: disoriented Skin: normal pigmentation, warm/dry HA FRANCIS Jul 24, 2016 09:22
--- NOTE | 2016-07-24 11:00 | Infectious Diseases Prog Note ---
"Assessment/Plan Assessment/Plan antibiotics : zosyn A 1. pseudomonas | e.coli UTI 2. shock resolved 3. respiratory failure resolved 4. renal failure improving 5. leucocytosis increased likely secondary to steroids 6. pneumonia P 1. continue zosyn 2. will follow up cultures Subjective ROS Limited/Unobtainable: Yes Allergies: Coded Allergies: No Known Allergies (Unverified , 04/18/12) Objective Vital Signs Last 24 Hour Vital Signs Date Time Temp Pulse Resp B/P Pulse Ox O2 Delivery O2 Flow Rate FiO2 07/24/16 09:19 110/75 07/24/16 08:00 97.2 94 18 110/75 99 Simple Mask 5.0 07/24/16 05:53 116 129/77 07/24/16 04:30 98.6 93 32 134/74 98 Venturi Mask 07/24/16 04:08 107 07/24/16 00:30 98 106/57 07/24/16 00:00 98.2 98 28 106/57 97 Venturi Mask 07/23/16 23:53 98 07/23/16 21:03 Simple Mask 5.0 40 07/23/16 21:02 96 Simple Mask 6.0 45 07/23/16 20:00 98.6 94 28 116/71 99 Simple Mask 5.0 07/23/16 19:24 81 07/23/16 18:19 102 124/73 07/23/16 16:24 100 07/23/16 16:00 97.2 84 16 105/53 100 Simple Mask 5.0 07/23/16 12:58 93 132/88 07/23/16 12:05 89 07/23/16 12:00 98.2 95 19 119/57 99 Simple Mask 5.0 Height (Feet): 5 Height (Inches): 1.00 Weight (Pounds): 101 Respiratory/Chest: lungs clear Cardiovascular: normal rate, regular rhythm, no gallop/murmur Abdomen: soft, non tender Extremities: no edema Microbiology Date/Time Source Procedure Growth Status 07/22/16 14:00 Urine,Clean Catch Urine Culture - Preliminary Resulted Laboratory Tests Test 07/24/16 04:30 White Blood Count 23.0 K/UL (4.8-10.8) *H Red Blood Count 3.62 M/UL (4.20-5.40) L Hemoglobin 10.8 G/DL (12.0-16.0) L Hematocrit 33.1 % (37.0-47.0) L Mean Corpuscular Volume 92 FL (80-99) Mean Corpuscular Hemoglobin 29.7 PG (27.0-31.0) Mean Corpuscular Hemoglobin Concent 32.5 G/DL (32.0-36.0) Red Cell Distribution Width 14.7 % (11.6-14.8) Platelet Count 184 K/UL (150-450) Mean Platelet Volume 11.0 FL (6.5-10.1) H Neutrophils (%) (Auto) % (45.0-75.0) Lymphocytes (%) (Auto) % (20.0-45.0) Monocytes (%) (Auto) % (1.0-10.0) Eosinophils (%) (Auto) % (0.0-3.0) Basophils (%) (Auto) % (0.0-2.0) Differential Total Cells Counted 100 Neutrophils % (Manual) 86 % (45-75) H Lymphocytes % (Manual) 7 % (20-45) L Monocytes % (Manual) 4 % (1-10) Eosinophils % (Manual) 1 % (0-3) Basophils % (Manual) 0 % (0-2) Band Neutrophils 2 % (0-8) Platelet Estimate Adequate Platelet Morphology Normal Giant Platelets Occasional Red Blood Cell Morphology Normal Sodium Level 140 mEQ/L (135-145) Potassium Level 4.2 mEQ/L (3.4-4.9) Chloride Level 103 mEQ/L (98-107) Carbon Dioxide Level 24 mEQ/L (20-30) Anion Gap 13 (5-15) Blood Urea Nitrogen 28 mg/dL (7-23) H Creatinine 1.0 mg/dL (0.5-0.9) H Estimat Glomerular Filtration Rate mL/min (>60) Glucose Level 120 mg/dL (74-106) H Calcium Level 8.2 mg/dL (8.6-10.2) L Total Bilirubin 0.6 mg/dL (0.0-1.2) Aspartate Amino Transf (AST/SGOT) 52 U/L (5-40) H Alanine Aminotransferase (ALT/SGPT) 45 U/L (3-33) H Alkaline Phosphatase 104 U/L (35-104) Total Protein 5.6 g/dL (6.6-8.7) L Albumin 1.7 g/dL (3.5-5.2) L Globulin 3.9 g/dL Albumin/Globulin Ratio 0.4 (1.0-2.7) L DAMIAN GUZMAN Jul 24, 2016 11:00"
[2016-07-24 12:00] VITALS: BP 110/68
[2016-07-24 16:00] VITALS: BP 107/61
--- NOTE | 2016-07-24 17:46 | Nephrology Progress Note ---
Assessment/Plan Assessment 1) S/p MARCELLE 2) No CHF 3) Malnutrition, unable to put NG T in place 4) Hypokalemia 5) underlying sepsis 6) Hypophosphatemia Plan: Continue TF Will sign off Subjective Subjective She is tolerating tube feed ok, , still lethargic, WBC is 23K Objective Objective Last 24 Hour Vital Signs Date Time Temp Pulse Resp B/P Pulse Ox O2 Delivery O2 Flow Rate FiO2 07/24/16 17:03 100 07/24/16 16:00 97.0 96 20 107/61 96 Nasal Cannula 07/24/16 13:02 114 07/24/16 12:00 95 07/24/16 12:00 97.5 87 18 110/68 96 Simple Mask 5.0 07/24/16 09:19 110/75 07/24/16 08:00 85 07/24/16 08:00 97.2 94 18 110/75 99 Simple Mask 5.0 07/24/16 05:53 116 129/77 07/24/16 04:30 98.6 93 32 134/74 98 Venturi Mask 07/24/16 04:08 107 07/24/16 00:30 98 106/57 07/24/16 00:00 98.2 98 28 106/57 97 Venturi Mask 07/23/16 23:53 98 07/23/16 21:03 Simple Mask 5.0 40 07/23/16 21:02 96 Simple Mask 6.0 45 07/23/16 20:00 98.6 94 28 116/71 99 Simple Mask 5.0 07/23/16 19:24 81 07/23/16 18:19 102 124/73 Intake and Output 07/23/16 07/24/16 19:00 07:00 Intake Total 435.8 ml 567.5 ml Output Total 175 ml 1500 ml Balance 260.8 ml -932.5 ml Free Water 50 ml 50 ml IV Total 165.8 ml 187.5 ml Tube Feeding 220 ml 270 ml Other 60 ml Output Urine Total 175 ml 1500 ml # Bowel Movements 1 2 Laboratory Tests 07/24/16 04:30: White Blood Count 23.0*H, Red Blood Count 3.62L, Hemoglobin 10.8L, Hematocrit 33.1L, Mean Corpuscular Volume 92, Mean Corpuscular Hemoglobin 29.7, Mean Corpuscular Hemoglobin Concent 32.5, Red Cell Distribution Width 14.7, Platelet Count 184, Mean Platelet Volume 11.0H, Neutrophils (%) (Auto) , Lymphocytes (%) (Auto) , Monocytes (%) (Auto) , Eosinophils (%) (Auto) , Basophils (%) (Auto) , Differential Total Cells Counted 100, Neutrophils % (Manual) 86H, Lymphocytes % (Manual) 7L, Monocytes % (Manual) 4, Eosinophils % (Manual) 1, Basophils % ( Manual) 0, Band Neutrophils 2, Platelet Estimate Adequate, Platelet Morphology Normal, Giant Platelets Occasional, Red Blood Cell Morphology Normal, Sodium Level 140, Potassium Level 4.2, Chloride Level 103, Carbon Dioxide Level 24, Anion Gap 13, Blood Urea Nitrogen 28H, Creatinine 1.0H, Estimat Glomerular Filtration Rate , Glucose Level 120H, Calcium Level 8.2L, Total Bilirubin 0.6, Aspartate Amino Transf (AST/SGOT) 52H, Alanine Aminotransferase (ALT/SGPT) 45H, Alkaline Phosphatase 104, Total Protein 5.6L, Albumin 1.7L, Globulin 3.9, Albumin/Globulin Ratio 0.4L Height (Feet): 5 Height (Inches): 1.00 Weight (Pounds): 101 General Appearance: WD/WN, no apparent distress EENT: PERRL/EOMI, normal ENT inspection Neck: non-tender Cardiovascular: normal rate, regular rhythm, no JVD Respiratory/Chest: lungs clear, normal breath sounds Abdomen: non tender Neurologic: commander internal affairs II-XII grossly normal, unresponsive SKYLAR FRIEDMAN Jul 24, 2016 17:45
[2016-07-24 20:24] VITALS: BP 118/60
[2016-07-24] MEDS: Atorvastatin 20mg tab GT SCH (21:02)
[2016-07-24] MEDS: Acetaminophen 650mg/20.3ml NG PRN (21:03)
--- NOTE | 2016-07-24 23:06 | General Progress Note ---
Assessment/Plan Assessment/Plan Assessment - Leukocytosis - dysphagia - anemia - hyponatremia, hypophosphatemia, hypokalemia - OBS - malnutrition - s/p surgical GT Recommendation - monitor labs - Free water restriction - NPO via oral route - continue advance TF Subjective Allergies: Coded Allergies: No Known Allergies (Unverified , 04/18/12) Subjective non communicative s/p surgical GT HOB elevated getting TF Objective Last 24 Hour Vital Signs Date Time Temp Pulse Resp B/P Pulse Ox O2 Delivery O2 Flow Rate FiO2 07/24/16 20:24 97.5 93 18 118/60 98 Simple Mask 5.0 07/24/16 19:19 99 07/24/16 19:00 96 Simple Mask 6.0 44 07/24/16 19:00 Simple Mask 5.0 40 07/24/16 18:00 100 107/61 07/24/16 17:03 100 07/24/16 16:00 97.0 96 20 107/61 96 Nasal Cannula 07/24/16 13:02 114 07/24/16 12:00 95 07/24/16 12:00 97.5 87 18 110/68 96 Simple Mask 5.0 07/24/16 09:19 110/75 07/24/16 08:00 85 07/24/16 08:00 97.2 94 18 110/75 99 Simple Mask 5.0 07/24/16 05:53 116 129/77 07/24/16 04:30 98.6 93 32 134/74 98 Venturi Mask 07/24/16 04:08 107 07/24/16 00:30 98 106/57 07/24/16 00:00 98.2 98 28 106/57 97 Venturi Mask 07/23/16 23:53 98 Intake and Output 07/23/16 07/24/16 19:00 07:00 Intake Total 435.8 ml 567.5 ml Output Total 175 ml 1500 ml Balance 260.8 ml -932.5 ml Free Water 50 ml 50 ml IV Total 165.8 ml 187.5 ml Tube Feeding 220 ml 270 ml Other 60 ml Output Urine Total 175 ml 1500 ml # Bowel Movements 1 2 Laboratory Tests 07/24/16 04:30: White Blood Count 23.0*H, Red Blood Count 3.62L, Hemoglobin 10.8L, Hematocrit 33.1L, Mean Corpuscular Volume 92, Mean Corpuscular Hemoglobin 29.7, Mean Corpuscular Hemoglobin Concent 32.5, Red Cell Distribution Width 14.7, Platelet Count 184, Mean Platelet Volume 11.0H, Neutrophils (%) (Auto) , Lymphocytes (%) (Auto) , Monocytes (%) (Auto) , Eosinophils (%) (Auto) , Basophils (%) (Auto) , Differential Total Cells Counted 100, Neutrophils % (Manual) 86H, Lymphocytes % (Manual) 7L, Monocytes % (Manual) 4, Eosinophils % (Manual) 1, Basophils % ( Manual) 0, Band Neutrophils 2, Platelet Estimate Adequate, Platelet Morphology Normal, Giant Platelets Occasional, Red Blood Cell Morphology Normal, Sodium Level 140, Potassium Level 4.2, Chloride Level 103, Carbon Dioxide Level 24, Anion Gap 13, Blood Urea Nitrogen 28H, Creatinine 1.0H, Estimat Glomerular Filtration Rate , Glucose Level 120H, Calcium Level 8.2L, Total Bilirubin 0.6, Aspartate Amino Transf (AST/SGOT) 52H, Alanine Aminotransferase (ALT/SGPT) 45H, Alkaline Phosphatase 104, Total Protein 5.6L, Albumin 1.7L, Globulin 3.9, Albumin/Globulin Ratio 0.4L Height (Feet): 5 Height (Inches): 1.00 Weight (Pounds): 101 Objective Thin WW NCAT supple CTA RRR Soft Flat ND (+) GT (+) contractures (+) OBS AMASHAWNJO Jul 24, 2016 23:06
[2016-07-25] VITALS: BP 100/63
[2016-07-25] MEDS: NovoLOG Insulin Flexpen SUBQ SCH ×4 (00:17→18:47)
--- NOTE | 2016-07-25 02:49 | Progress Note ---
DATE: 07/24/2016 CARDIOLOGY PROGRESS NOTE: SUBJECTIVE: The patient's G-tube feeds have been started at a low rate. The patient is no longer on TPN and the patient remains withdrawn. Oxygen requirements are being tapered. OBJECTIVE: LUNGS: Bilateral breath sounds. Scattered rhonchi. Expiratory wheezes. HEART: Regular rhythm and rate. Normal S1 and S2. ABDOMEN: Soft. EXTREMITIES: Dependent edema is seen. LABORATORY DATA: White count 23, hemoglobin 10.8, potassium 4.2, BUN 28, creatinine 1.0. Albumin 1.7. IMPRESSION: 1. Severe protein-calorie malnutrition. 2. Dysphagia status post gastrostomy tube. 3. Hiatal hernia. 4. Ucclo-rh-shcxdjc diastolic congestive heart failure. 5. Prerenal azotemia. 6. Sepsis status post shock. 7. Paroxysmal sinus tachycardia. 8. Hypophosphatemia. PLAN: Advance G-tube feedings and discontinue TPN concomitantly. Cautious diuresis. Antimicrobials per Infectious Disease outplacement consultant. DVT prophylaxis. Respiratory hygiene. Taper steroids and expect concomitant improvement in leukocytosis. Remain in serious condition with guarded prognosis. Yohan Corbett M.D. DR: Marychuy JOB#: [id number] CC:
[2016-07-25 04:00] VITALS: BP 130/70
[2016-07-25] MEDS: Piperacillin/Tazobactam 3.375 GM in D5W 110 ML IVPB SCH (05:45)
[2016-07-25] MEDS: Acetaminophen 650mg/20.3ml NG PRN (05:46)
[2016-07-25] MEDS: Metoprolol 5mg/5ml Inj IVP SCH ×4 (05:55→18:44)
[2016-07-25 08:00] VITALS: BP 126/66
--- NOTE | 2016-07-25 08:21 | General Progress Note ---
Assessment/Plan Problem List: (1) Hypothyroid ICD Codes: E03.9 - Hypothyroid SNOMED: 39787916 (2) Septic shock ICD Codes: A41.9 - Sepsis, unspecified organism; R65.21 - Severe sepsis with septic shock SNOMED: 29282645 (3) Acute renal failure ICD Codes: N17.9 - Acute kidney failure, unspecified SNOMED: 58413831 Qualifiers: Qualified Codes: N17.0 - Acute kidney failure with tubular necrosis (4) Sepsis ICD Codes: A41.9 - Sepsis, unspecified organism SNOMED: 94512005 (5) Altered mental status ICD Codes: R41.82 - Altered mental status, unspecified SNOMED: 752992991 Qualifiers: Qualified Codes: R41.0 - Disorientation, unspecified (6) Acute delirium ICD Codes: R41.0 - Acute delirium SNOMED: 8552793 (7) UTI (lower urinary tract infection) ICD Codes: N39.0 - UTI (lower urinary tract infection) SNOMED: 5208211 Status: stable, progressing Assessment/Plan check cxr iv abx per id iv steroids - weaning resp rx gt feeds ordered at low rate pulmonary status remains tenuous Subjective ROS Limited/Unobtainable: No Constitutional: Reports: malaise, weakness HEENT: Reports: no symptoms Cardiovascular: Reports: no symptoms Respiratory: Reports: shortness of breath Gastrointestinal/Abdominal: Reports: no symptoms Genitourinary: Reports: no symptoms Neurologic/Psychiatric: Reports: pre-existing deficit Endocrine: Reports: no symptoms Hematologic/Lymphatic: Reports: anemia Allergies: Coded Allergies: No Known Allergies (Unverified , 04/18/12) All Systems: reviewed and negative except above Subjective off tpn tolerating feeds per RN, unable to wean off facemask Objective Last 24 Hour Vital Signs Date Time Temp Pulse Resp B/P Pulse Ox O2 Delivery O2 Flow Rate FiO2 07/25/16 05:55 117 132/84 07/25/16 04:00 97.7 91 18 130/70 97 Simple Mask 5.0 07/25/16 04:00 120 07/25/16 00:00 91 100/63 07/25/16 00:00 97.4 91 18 100/63 98 Simple Mask 5.0 07/24/16 23:34 104 07/24/16 20:24 97.5 93 18 118/60 98 Simple Mask 5.0 07/24/16 19:19 99 07/24/16 19:00 96 Simple Mask 6.0 44 07/24/16 19:00 Simple Mask 5.0 40 07/24/16 18:00 100 107/61 07/24/16 17:03 100 07/24/16 16:00 97.0 96 20 107/61 96 Nasal Cannula 07/24/16 13:02 114 07/24/16 12:00 95 07/24/16 12:00 97.5 87 18 110/68 96 Simple Mask 5.0 07/24/16 09:19 110/75 Intake and Output 07/24/16 07/25/16 19:00 07:00 Intake Total 417.5 ml 627.5 ml Output Total 800 ml 1150 ml Balance -382.5 ml -522.5 ml Free Water 50 ml 50 ml IV Total 192.5 ml 77.5 ml Tube Feeding 175 ml 440 ml Other 60 ml Output Urine Total 800 ml 1150 ml # Bowel Movements 2 Height (Feet): 5 Height (Inches): 1.00 Weight (Pounds): 101 Objective General Appearance: WD/WN, lethargic, confused Neck: supple Cardiovascular: normal rate, regular rhythm Respiratory/Chest: diffuse wheezing Abdomen: normal bowel sounds, non tender, soft, no organomegaly Edema: no edema noted Arm (L), no edema noted Arm (R), no edema noted Leg (L), no edema noted Leg (R), no edema noted Pedal (L), no edema noted Pedal (R), no edema noted Generalized Neurologic: disoriented Skin: normal pigmentation, warm/dry HA FRANCIS Jul 25, 2016 08:21
[2016-07-25] MEDS: Ascorbic Acid 500mg tab GT SCH (08:56)
[2016-07-25] MEDS: Pantoprazole Inj IVP SCH (08:56)
[2016-07-25] MEDS: Lisinopril 10mg tab GT SCH (08:56)
[2016-07-25] MEDS: Aspirin Baby 81mg GT SCH (08:56)
[2016-07-25] MEDS: Solu-MEDROL 40mg Inj IVP SCH (08:57)
--- NOTE | 2016-07-25 10:38 | Diagnostic Imaging Report ---
Indication: Shortness of breath Technique: XRAY CHEST 1 V Comparison: 07/22/16 Findings: Right internal jugular central line is unchanged. There is poor inspiration. Cardiomediastinal silhouette is stable. Interstitial edema is present. Small bilateral pleural effusions and/or by basilar atelectasis is again noted. Retrocardiac air lucency is suggestive of hiatal hernia. Impression: Poor inspiration. Slightly increased but small right pleural effusion. Otherwise stable chest.
--- NOTE | 2016-07-25 11:13 | Infectious Diseases Prog Note ---
"Assessment/Plan Assessment/Plan antibiotics : zosyn A 1. pseudomonas | e.coli UTI s/p rx 2. shock resolved 3. respiratory failure resolved 4. renal failure improving 5. leucocytosis improved likely secondary to steroids 6. pneumonia s/p rx 7. fungal UTI P 1. d/c zosyn 2. start fluconazole 3. will follow up cultures Subjective ROS Limited/Unobtainable: Yes Allergies: Coded Allergies: No Known Allergies (Unverified , 04/18/12) Objective Vital Signs Last 24 Hour Vital Signs Date Time Temp Pulse Resp B/P Pulse Ox O2 Delivery O2 Flow Rate FiO2 07/25/16 08:56 126/66 07/25/16 08:00 117 07/25/16 08:00 97.7 87 22 126/66 98 Simple Mask 5.0 07/25/16 05:55 117 132/84 07/25/16 04:00 97.7 91 18 130/70 97 Simple Mask 5.0 07/25/16 04:00 120 07/25/16 00:00 91 100/63 07/25/16 00:00 97.4 91 18 100/63 98 Simple Mask 5.0 07/24/16 23:34 104 07/24/16 20:24 97.5 93 18 118/60 98 Simple Mask 5.0 07/24/16 19:19 99 07/24/16 19:00 96 Simple Mask 6.0 44 07/24/16 19:00 Simple Mask 5.0 40 07/24/16 18:00 100 107/61 07/24/16 17:03 100 07/24/16 16:00 97.0 96 20 107/61 96 Nasal Cannula 07/24/16 13:02 114 07/24/16 12:00 95 07/24/16 12:00 97.5 87 18 110/68 96 Simple Mask 5.0 Height (Feet): 5 Height (Inches): 1.00 Weight (Pounds): 101 Respiratory/Chest: lungs clear Cardiovascular: normal rate, regular rhythm, no gallop/murmur Abdomen: soft, non tender, other - GT Extremities: no edema, other - right IJ catheter Microbiology Date/Time Source Procedure Growth Status 07/23/16 05:30 Stool Clostridium difficile Toxin Assay - Final Complete 07/22/16 14:00 Urine,Clean Catch Urine Culture - Final [place] Albicans Complete DAMIAN GUZMAN Jul 25, 2016 11:13"
[2016-07-25 12:00] VITALS: BP 124/73
--- NOTE | 2016-07-25 13:23 | Wound Care Consultation ---
Wound Assessment Wound Assessment : Wound Number: #1 Wound Present on Admission: No New Wound: Yes Status Change of Wound: No Wound Location Body Site Modif: left Wound Location Body Site: metatarsal head - 5TH Wound Type: pressure ulcer Mau Test: Does not Mau Pressure Ulcer Stage: deep tissue injury Wound Thickness: Full Thickness Wound Length: 3.0 Wound Width: 3.0 Wound Depth: UTD Percent of Wound Purple/Maroon: 100 Wound Drainage Amount: None Wound Drainage Odor: None/Absent Tissue Surrounding Wound: Intact - upon reassessment skin remains intact Wound General Appearance: Reddened - surrounding tissue noted reddened area site manager in color, no significant change noted , No further deterioration present. Wound Comment #1 Left 5th metatarsal head Deep tissue injury-upon reassessment noted skin remains intact, No further deterioration present, current treatment is effective , no drainage, no odor present tolerated treatment well, no facial grimacing present at this time, affected site offloaded, repositioned. Continue to monitor for any changes of condition to wound and notify MD if any. Recommendation -Continue current wound care treatment as ordered. -Offload affected site. -Avoid shear and friction. -Heel protectors . -Low air loss overlay mattress for wound and skin management. -Optimize nutrition. -Keep clean and dry. -Turn and reposition. -Assess and notify MD for any changes of condition noted. YURI GONZALEZ Jul 25, 2016 13:23
--- NOTE | 2016-07-25 15:34 | Critical Care Progress Note ---
Assessment/Plan Assessment/Plan IMPRESSION: Respiratory failure, resolved, presumed sepsis, shock, hypothermia, hypotension-recurrent, history of dementia , history congestive heart failure, history of coronary artery disease, history of hypertension, possible acute on chronic renal failure, significant lactic acidemia, protein-calorie malnutrition, and profound leukocytosis-resolved; fevers PLAN pulmonary care reviewed and discussed fluid management noted cardiology follow up chest xr with hypoventilatory changes exam noted and edited care reviewed in detail optimize and advance care as able monitor for aspiration and congestion follow up closely as fairly labile transition to SNF ok per pulmonary medications/laboratory data/nursing notes reviewed in detail note reviewed and edited care discussed with RN and RT Critical Care - Subjective Interval Events: care noted and reviewed d/w RN EKG Rhythm: Sinus Rhythm I&O: Intake and Output 07/24/16 07/25/16 19:00 07:00 Intake Total 417.5 ml 672.5 ml Output Total 800 ml 1150 ml Balance -382.5 ml -477.5 ml Free Water 50 ml 50 ml IV Total 192.5 ml 77.5 ml Tube Feeding 175 ml 485 ml Other 60 ml Output Urine Total 800 ml 1150 ml # Bowel Movements 2 Critical Care - Objective ET-Tube: 8.0 ET Position: 24 Last 24 Hour Vital Signs Date Time Temp Pulse Resp B/P Pulse Ox O2 Delivery O2 Flow Rate FiO2 07/25/16 12:00 92 07/25/16 12:00 98.2 86 22 124/73 98 Simple Mask 5.0 07/25/16 11:46 91 117/78 07/25/16 08:56 126/66 07/25/16 08:00 117 07/25/16 08:00 97.7 87 22 126/66 98 Simple Mask 5.0 07/25/16 05:55 117 132/84 07/25/16 04:00 97.7 91 18 130/70 97 Simple Mask 5.0 07/25/16 04:00 120 07/25/16 00:00 91 100/63 07/25/16 00:00 97.4 91 18 100/63 98 Simple Mask 5.0 07/24/16 23:34 104 07/24/16 20:24 97.5 93 18 118/60 98 Simple Mask 5.0 07/24/16 19:19 99 07/24/16 19:00 96 Simple Mask 6.0 44 07/24/16 19:00 Simple Mask 5.0 40 07/24/16 18:00 100 107/61 07/24/16 17:03 100 07/24/16 16:00 97.0 96 20 107/61 96 Nasal Cannula Labs: Labs Test 07/23/16 03:30 07/24/16 04:30 White Blood Count 25.3 K/UL (4.8-10.8) 23.0 K/UL (4.8-10.8) Red Blood Count 3.36 M/UL (4.20-5.40) 3.62 M/UL (4.20-5.40) Hemoglobin 10.2 G/DL (12.0-16.0) 10.8 G/DL (12.0-16.0) Hematocrit 30.4 % (37.0-47.0) 33.1 % (37.0-47.0) Mean Corpuscular Volume 90 FL (80-99) 92 FL (80-99) Mean Corpuscular Hemoglobin 30.5 PG (27.0-31.0) 29.7 PG (27.0-31.0) Mean Corpuscular Hemoglobin Concent 33.7 G/DL (32.0-36.0) 32.5 G/DL (32.0-36.0) Red Cell Distribution Width 14.5 % (11.6-14.8) 14.7 % (11.6-14.8) Platelet Count 175 K/UL (150-450) 184 K/UL (150-450) Mean Platelet Volume 11.5 FL (6.5-10.1) 11.0 FL (6.5-10.1) Neutrophils (%) (Auto) % (45.0-75.0) % (45.0-75.0) Lymphocytes (%) (Auto) % (20.0-45.0) % (20.0-45.0) Monocytes (%) (Auto) % (1.0-10.0) % (1.0-10.0) Eosinophils (%) (Auto) % (0.0-3.0) % (0.0-3.0) Basophils (%) (Auto) % (0.0-2.0) % (0.0-2.0) Differential Total Cells Counted 100 100 Neutrophils % (Manual) 94 % (45-75) 86 % (45-75) Lymphocytes % (Manual) 5 % (20-45) 7 % (20-45) Monocytes % (Manual) 1 % (1-10) 4 % (1-10) Eosinophils % (Manual) 0 % (0-3) 1 % (0-3) Basophils % (Manual) 0 % (0-2) 0 % (0-2) Band Neutrophils 0 % (0-8) 2 % (0-8) Platelet Estimate Adequate Adequate Platelet Morphology Normal Normal Hypochromasia 1+ Sodium Level 138 mEQ/L (135-145) 140 mEQ/L (135-145) Potassium Level 4.2 mEQ/L (3.4-4.9) 4.2 mEQ/L (3.4-4.9) Chloride Level 102 mEQ/L (98-107) 103 mEQ/L (98-107) Carbon Dioxide Level 22 mEQ/L (20-30) 24 mEQ/L (20-30) Anion Gap 14 (5-15) 13 (5-15) Blood Urea Nitrogen 22 mg/dL (7-23) 28 mg/dL (7-23) Creatinine 0.9 mg/dL (0.5-0.9) 1.0 mg/dL (0.5-0.9) Estimat Glomerular Filtration Rate mL/min (>60) mL/min (>60) Glucose Level 169 mg/dL (74-106) 120 mg/dL (74-106) Calcium Level 8.1 mg/dL (8.6-10.2) 8.2 mg/dL (8.6-10.2) Magnesium Level 1.9 mg/dL (1.7-2.5) Total Bilirubin 0.3 mg/dL (0.0-1.2) 0.6 mg/dL (0.0-1.2) Aspartate Amino Transf (AST/SGOT) 40 U/L (5-40) 52 U/L (5-40) Alanine Aminotransferase (ALT/SGPT) 28 U/L (3-33) 45 U/L (3-33) Alkaline Phosphatase 80 U/L (35-104) 104 U/L (35-104) Pro-B-Type Natriuretic Peptide > 64636 pg/mL (0-450) Total Protein 5.2 g/dL (6.6-8.7) 5.6 g/dL (6.6-8.7) Albumin 1.6 g/dL (3.5-5.2) 1.7 g/dL (3.5-5.2) Globulin 3.6 g/dL 3.9 g/dL Albumin/Globulin Ratio 0.4 (1.0-2.7) 0.4 (1.0-2.7) Giant Platelets Occasional Red Blood Cell Morphology Normal Objective: GENERAL: A well-developed female, NAD HEENT: Fairly negative. NAD NECK: Supple. No jugular venous distention. LUNGS: moderate breath sounds without rhonchi; Moderate air entry. minimal rhonchi CARDIAC: S1 and S2. RRR without murmurs, rubs, or gallops. ABDOMEN: Soft, nontender, and nondistended. no HSM; GT EXTREMITIES: No cyanosis or clubbing. No edema. NEUROLOGICAL: Grossly nonfocal. contracted and withdrawn reviewed and edited; no significant change Micro: Microbiology Date/Time Source Procedure Growth Status 07/23/16 05:30 Stool Clostridium difficile Toxin Assay - Final Complete Accucheck: 119 MARCELO BIRMINGHAM Jul 25, 2016 15:34
[2016-07-25 16:00] VITALS: BP 110/70
[2016-07-25 20:00] VITALS: BP 135/61
--- NOTE | 2016-07-25 20:13 | General Progress Note ---
Assessment/Plan Assessment/Plan Assessment - Leukocytosis - dysphagia - anemia - hyponatremia, hypophosphatemia, hypokalemia - OBS - malnutrition - s/p surgical GT Recommendation - monitor labs - Free water restriction - NPO via oral route - continue TF Subjective Allergies: Coded Allergies: No Known Allergies (Unverified , 04/18/12) Subjective non communicative s/p surgical GT HOB elevated getting TF at 50/hr Objective Last 24 Hour Vital Signs Date Time Temp Pulse Resp B/P Pulse Ox O2 Delivery O2 Flow Rate FiO2 07/25/16 18:44 108 124/76 07/25/16 16:00 97.7 87 20 110/70 97 Simple Mask 5.0 07/25/16 16:00 97 07/25/16 12:00 92 07/25/16 12:00 98.2 86 22 124/73 98 Simple Mask 5.0 07/25/16 11:46 91 117/78 07/25/16 08:56 126/66 07/25/16 08:00 117 07/25/16 08:00 97.7 87 22 126/66 98 Simple Mask 5.0 07/25/16 05:55 117 132/84 07/25/16 04:00 97.7 91 18 130/70 97 Simple Mask 5.0 07/25/16 04:00 120 07/25/16 00:00 91 100/63 07/25/16 00:00 97.4 91 18 100/63 98 Simple Mask 5.0 07/24/16 23:34 104 07/24/16 20:24 97.5 93 18 118/60 98 Simple Mask 5.0 Intake and Output 07/24/16 07/25/16 19:00 07:00 Intake Total 417.5 ml 672.5 ml Output Total 800 ml 1150 ml Balance -382.5 ml -477.5 ml Free Water 50 ml 50 ml IV Total 192.5 ml 77.5 ml Tube Feeding 175 ml 485 ml Other 60 ml Output Urine Total 800 ml 1150 ml # Bowel Movements 2 Height (Feet): 5 Height (Inches): 1.00 Weight (Pounds): 101 Objective Thin WW NCAT supple CTA RRR Soft Flat ND (+) GT (+) contractures (+) OBS KALEE SERRATO Jul 25, 2016 20:13
[2016-07-25] MEDS: Atorvastatin 20mg tab GT SCH (21:54)
[2016-07-26] VITALS (8 sets, daily range): BP systolic 87–127; BP diastolic 41–76
[2016-07-26] MEDS: Metoprolol 5mg/5ml Inj IVP SCH ×4 (00:41→18:05)
--- NOTE | 2016-07-26 00:49 | Progress Note ---
DATE: 07/25/2016 SURGICAL FOLLOWUP SUBJECTIVE: The patient is four days post placement of a surgical [place] gastrostomy. She continues to be in a rather fragile condition, but she is tolerating fairly low dose of tube feeding at the present time. The surgical areas look okay. PLAN: Continue to increase feeding as tolerated. Carefully monitor pulmonary condition and take appropriate aspiration precautions including monitoring of residual volume t. Nick Pope M.D. DR: LEONORA JOB#: [id number] CC:
[2016-07-26] MEDS: NovoLOG Insulin Flexpen SUBQ SCH ×5 (05:55→23:28)
--- NOTE | 2016-07-26 08:08 | General Progress Note ---
Assessment/Plan Problem List: (1) Hypothyroid ICD Codes: E03.9 - Hypothyroid SNOMED: 45849620 (2) Septic shock ICD Codes: A41.9 - Sepsis, unspecified organism; R65.21 - Severe sepsis with septic shock SNOMED: 55283599 (3) Acute renal failure ICD Codes: N17.9 - Acute kidney failure, unspecified SNOMED: 89719420 Qualifiers: Qualified Codes: N17.0 - Acute kidney failure with tubular necrosis (4) Sepsis ICD Codes: A41.9 - Sepsis, unspecified organism SNOMED: 39817514 (5) Altered mental status ICD Codes: R41.82 - Altered mental status, unspecified SNOMED: 329540027 Qualifiers: Qualified Codes: R41.0 - Disorientation, unspecified (6) Acute delirium ICD Codes: R41.0 - Acute delirium SNOMED: 5439133 (7) UTI (lower urinary tract infection) ICD Codes: N39.0 - UTI (lower urinary tract infection) SNOMED: 8093798 Status: stable, progressing Assessment/Plan monitor cxr diuresis iv abx per id iv steroids - dc resp rx gt feeds ordered at low rate pulmonary status remains tenuous Subjective ROS Limited/Unobtainable: Yes Constitutional: Reports: malaise, weakness HEENT: Reports: no symptoms Cardiovascular: Reports: no symptoms Respiratory: Reports: shortness of breath Gastrointestinal/Abdominal: Reports: no symptoms Genitourinary: Reports: no symptoms Neurologic/Psychiatric: Reports: pre-existing deficit Endocrine: Reports: no symptoms Hematologic/Lymphatic: Reports: anemia Allergies: Coded Allergies: No Known Allergies (Unverified , 04/18/12) All Systems: reviewed and negative except above Subjective off tpn tolerating feeds per RN, unable to wean off facemask no change seems more alert cxr with chf. on iv lasix q12 Objective Last 24 Hour Vital Signs Date Time Temp Pulse Resp B/P Pulse Ox O2 Delivery O2 Flow Rate FiO2 07/26/16 05:26 81 120/54 07/26/16 05:00 97.9 81 20 120/54 99 Simple Mask 5.0 07/26/16 03:40 87 07/26/16 00:41 84 127/59 07/26/16 00:20 97.7 84 22 127/59 99 Simple Mask 5.0 07/25/16 23:59 98 2/11/17 20:03 95 Nasal Cannula 5.0 40 07/25/16 20:03 Nasal Cannula 5.0 40 07/25/16 20:00 97.9 83 24 135/61 95 Nasal Cannula 5.0 07/25/16 19:35 89 07/25/16 18:44 108 124/76 07/25/16 16:00 97.7 87 20 110/70 97 Simple Mask 5.0 07/25/16 16:00 97 07/25/16 12:00 92 07/25/16 12:00 98.2 86 22 124/73 98 Simple Mask 5.0 07/25/16 11:46 91 117/78 07/25/16 08:56 126/66 Intake and Output 07/25/16 07/26/16 19:00 07:00 Intake Total 535 ml 760 ml Output Total 600 ml 2000 ml Balance -65 ml -1240 ml Free Water 50 ml 50 ml IV Total 50 ml Tube Feeding 455 ml 660 ml Other 30 ml Output Urine Total 600 ml 2000 ml # Bowel Movements 3 2 Height (Feet): 5 Height (Inches): 1.00 Weight (Pounds): 101 Objective General Appearance: WD/WN, lethargic, confused Neck: supple Cardiovascular: normal rate, regular rhythm Respiratory/Chest: diffuse wheezing Abdomen: normal bowel sounds, non tender, soft, no organomegaly Edema: no edema noted Arm (L), no edema noted Arm (R), no edema noted Leg (L), no edema noted Leg (R), no edema noted Pedal (L), no edema noted Pedal (R), no edema noted Generalized Neurologic: disoriented Skin: normal pigmentation, warm/dry HA FRANCIS Jul 26, 2016 08:08
--- NOTE | 2016-07-26 08:16 | Critical Care Progress Note ---
Assessment/Plan Assessment/Plan IMPRESSION: Respiratory failure, resolved, sepsis, shock, hypothermia, hypotension-recurrent, history of dementia, history congestive heart failure, history of coronary artery disease, history of hypertension, possible acute on chronic renal failure, t lactic acidemia, protein-calorie malnutrition, and profound leukocytosis-resolved; fevers PLAN pulmonary care as is fluid management noted cardiology follow up chest xr with hypoventilatory changes; will order exam noted and edited care reviewed in detail optimize and advance as able monitor for aspiration and congestion follow up closely as fairly labile transition to SNF ok per pulmonary and defer to primary medications/laboratory data/nursing notes reviewed in detail note reviewed and edited care discussed with RN and RT Critical Care - Subjective Interval Events: nursing noted reviewed discussed ROS Limited/Unobtainable: Yes EKG Rhythm: Sinus Rhythm I&O: Intake and Output 07/25/16 07/26/16 19:00 07:00 Intake Total 535 ml 760 ml Output Total 600 ml 2000 ml Balance -65 ml -1240 ml Free Water 50 ml 50 ml IV Total 50 ml Tube Feeding 455 ml 660 ml Other 30 ml Output Urine Total 600 ml 2000 ml # Bowel Movements 3 2 Critical Care - Objective ET-Tube: 8.0 ET Position: 24 Last 24 Hour Vital Signs Date Time Temp Pulse Resp B/P Pulse Ox O2 Delivery O2 Flow Rate FiO2 07/26/16 05:26 81 120/54 07/26/16 05:00 97.9 81 20 120/54 99 Simple Mask 5.0 07/26/16 03:40 87 07/26/16 00:41 84 127/59 07/26/16 00:20 97.7 84 22 127/59 99 Simple Mask 5.0 07/25/16 23:59 98 07/25/16 20:03 95 Nasal Cannula 5.0 40 07/25/16 20:03 Nasal Cannula 5.0 40 07/25/16 20:00 97.9 83 24 135/61 95 Nasal Cannula 5.0 07/25/16 19:35 89 07/25/16 18:44 108 124/76 07/25/16 16:00 97.7 87 20 110/70 97 Simple Mask 5.0 07/25/16 16:00 97 07/25/16 12:00 92 07/25/16 12:00 98.2 86 22 124/73 98 Simple Mask 5.0 07/25/16 11:46 91 117/78 07/25/16 08:56 126/66 Labs: Labs Test 07/24/16 04:30 White Blood Count 23.0 K/UL (4.8-10.8) Red Blood Count 3.62 M/UL (4.20-5.40) Hemoglobin 10.8 G/DL (12.0-16.0) Hematocrit 33.1 % (37.0-47.0) Mean Corpuscular Volume 92 FL (80-99) Mean Corpuscular Hemoglobin 29.7 PG (27.0-31.0) Mean Corpuscular Hemoglobin Concent 32.5 G/DL (32.0-36.0) Red Cell Distribution Width 14.7 % (11.6-14.8) Platelet Count 184 K/UL (150-450) Mean Platelet Volume 11.0 FL (6.5-10.1) Neutrophils (%) (Auto) % (45.0-75.0) Lymphocytes (%) (Auto) % (20.0-45.0) Monocytes (%) (Auto) % (1.0-10.0) Eosinophils (%) (Auto) % (0.0-3.0) Basophils (%) (Auto) % (0.0-2.0) Differential Total Cells Counted 100 Neutrophils % (Manual) 86 % (45-75) Lymphocytes % (Manual) 7 % (20-45) Monocytes % (Manual) 4 % (1-10) Eosinophils % (Manual) 1 % (0-3) Basophils % (Manual) 0 % (0-2) Band Neutrophils 2 % (0-8) Platelet Estimate Adequate Platelet Morphology Normal Giant Platelets Occasional Red Blood Cell Morphology Normal Sodium Level 140 mEQ/L (135-145) Potassium Level 4.2 mEQ/L (3.4-4.9) Chloride Level 103 mEQ/L (98-107) Carbon Dioxide Level 24 mEQ/L (20-30) Anion Gap 13 (5-15) Blood Urea Nitrogen 28 mg/dL (7-23) Creatinine 1.0 mg/dL (0.5-0.9) Estimat Glomerular Filtration Rate mL/min (>60) Glucose Level 120 mg/dL (74-106) Calcium Level 8.2 mg/dL (8.6-10.2) Total Bilirubin 0.6 mg/dL (0.0-1.2) Aspartate Amino Transf (AST/SGOT) 52 U/L (5-40) Alanine Aminotransferase (ALT/SGPT) 45 U/L (3-33) Alkaline Phosphatase 104 U/L (35-104) Total Protein 5.6 g/dL (6.6-8.7) Albumin 1.7 g/dL (3.5-5.2) Globulin 3.9 g/dL Albumin/Globulin Ratio 0.4 (1.0-2.7) Objective: GENERAL: A well-developed female, NAD HEENT: Fairly negative. NAD NECK: Supple. No jugular venous distention. LUNGS: moderate breath sounds without rhonchi; Moderate air entry. scattered rhonchi CARDIAC: S1 and S2. RRR without murmurs, rubs, or gallops. ABDOMEN: Soft, nontender, and nondistended. no HSM; GT EXTREMITIES: No cyanosis or clubbing. No edema. NEUROLOGICAL: Grossly nonfocal. contracted and withdrawn reviewed and edited; no significant change Accucheck: 90 MARCELO BIRMINGHAM Jul 26, 2016 08:16
[2016-07-26] MEDS: Ascorbic Acid 500mg tab GT SCH (09:17)
[2016-07-26] MEDS: Aspirin Baby 81mg GT SCH (09:17)
[2016-07-26] MEDS: Pantoprazole Inj IVP SCH (09:18)
[2016-07-26] MEDS: Lisinopril 10mg tab GT SCH (09:18)
--- NOTE | 2016-07-26 09:31 | Infectious Diseases Prog Note ---
Assessment/Plan Assessment/Plan A 1. Sepsis 2. UTI 4. Anemia 5. Dysphagia 6. leucocytosis 7. Atelectasis P 1. Continue Fluconazole 2. will f/u CBC Subjective ROS Limited/Unobtainable: Yes Allergies: Coded Allergies: No Known Allergies (Unverified , 04/18/12) Objective Vital Signs Last 24 Hour Vital Signs Date Time Temp Pulse Resp B/P Pulse Ox O2 Delivery O2 Flow Rate FiO2 07/26/16 09:18 122/64 07/26/16 08:00 98.4 93 20 122/64 100 Simple Mask 5.0 07/26/16 05:26 81 120/54 07/26/16 05:00 97.9 81 20 120/54 99 Simple Mask 5.0 07/26/16 03:40 87 07/26/16 00:41 84 127/59 07/26/16 00:20 97.7 84 22 127/59 99 Simple Mask 5.0 07/25/16 23:59 98 07/25/16 20:03 95 Nasal Cannula 5.0 40 07/25/16 20:03 Nasal Cannula 5.0 40 07/25/16 20:00 97.9 83 24 135/61 95 Nasal Cannula 5.0 07/25/16 19:35 89 07/25/16 18:44 108 124/76 07/25/16 16:00 97.7 87 20 110/70 97 Simple Mask 5.0 07/25/16 16:00 97 07/25/16 12:00 92 07/25/16 12:00 98.2 86 22 124/73 98 Simple Mask 5.0 07/25/16 11:46 91 117/78 Height (Feet): 5 Height (Inches): 1.00 Weight (Pounds): 101 HEENT: other - O2 bt mask Respiratory/Chest: lungs clear Cardiovascular: normal rate, other - RIJ line Abdomen: soft, non tender, other - GT feeding Extremities: no edema Neurologic/Psychiatric: other - opens eyes Current Medications Medications (Trade) Dose Ordered Sig/Trip Route PRN Reason Start Time Stop Time Status Last Admin Dose Admin Acetaminophen (Tylenol) 650 mg Q4H PRN NG Prn Headache/Temp > 101 07/16/16 23:34 08/15/16 23:33 07/25/16 05:46 Ascorbic Acid (Vitamin C) 500 mg DAILY GT 2/10/17 16:49 08/23/16 08:59 07/26/16 09:17 Aspirin (ASA) 81 mg DAILY GT 07/24/16 16:49 08/16/16 08:59 07/26/16 09:17 Atorvastatin Calcium (Lipitor) 20 mg BEDTIME GT 07/24/16 16:49 08/16/16 20:59 07/25/16 21:54 Dextrose (Dextrose 50%) STAT PRN IV Hypoglycemia 07/17/16 17:30 08/16/16 17:29 Fluconazole (Diflucan 100mg/ 50ml) 50 ml @ 50 mls/hr Q24H IV 07/23/16 04:00 07/30/16 03:59 07/26/16 04:00 Furosemide (Lasix) 40 mg EVERY 12 HOURS IV 07/23/16 23:30 08/22/16 23:29 07/26/16 09:17 Insulin Aspart (NovoLOG) Q6HR SUBQ 07/17/16 21:00 08/16/16 20:59 07/25/16 18:47 Levothyroxine Sodium 100 mcg 100 mcg DAILY IV 07/19/16 09:00 08/18/16 08:59 07/26/16 09:17 Lisinopril (Zestril) 10 mg DAILY GT 07/24/16 09:00 08/23/16 08:59 07/26/16 09:18 Metoprolol Tartrate (Lopressor) 5 mg EVERY 6 HOURS IVP 07/23/16 12:00 08/22/16 11:59 07/26/16 05:26 Pantoprazole (Protonix) 40 mg DAILY IVP 07/17/16 09:00 08/16/16 08:59 07/26/16 09:18 JAMEEL TRIPATHI Jul 26, 2016 09:31
--- NOTE | 2016-07-26 15:38 | General Progress Note ---
Assessment/Plan Assessment/Plan Assessment - Leukocytosis - dysphagia - anemia - OBS - malnutrition - s/p surgical GT Recommendation - monitor labs - Free water restriction - NPO via oral route - continue TF - will see intermittently / PRN Subjective Allergies: Coded Allergies: No Known Allergies (Unverified , 04/18/12) Subjective non communicative s/p surgical GT HOB elevated getting TF at 50/hr no events overnight Objective Last 24 Hour Vital Signs Date Time Temp Pulse Resp B/P Pulse Ox O2 Delivery O2 Flow Rate FiO2 07/26/16 12:00 98.4 100 20 90/52 98 Simple Mask 4.0 07/26/16 12:00 100 07/26/16 11:45 100 90/52 07/26/16 09:18 122/64 07/26/16 08:00 98.4 93 20 122/64 100 Simple Mask 5.0 07/26/16 08:00 93 07/26/16 05:26 81 120/54 07/26/16 05:00 97.9 81 20 120/54 99 Simple Mask 5.0 07/26/16 03:40 87 07/26/16 00:41 84 127/59 07/26/16 00:20 97.7 84 22 127/59 99 Simple Mask 5.0 07/25/16 23:59 98 07/25/16 20:03 95 Nasal Cannula 5.0 40 07/25/16 20:03 Nasal Cannula 5.0 40 07/25/16 20:00 97.9 83 24 135/61 95 Nasal Cannula 5.0 07/25/16 19:35 89 07/25/16 18:44 108 124/76 07/25/16 16:00 97.7 87 20 110/70 97 Simple Mask 5.0 07/25/16 16:00 97 Intake and Output 07/25/16 07/26/16 19:00 07:00 Intake Total 535 ml 760 ml Output Total 600 ml 2000 ml Balance -65 ml -1240 ml Free Water 50 ml 50 ml IV Total 50 ml Tube Feeding 455 ml 660 ml Other 30 ml Output Urine Total 600 ml 2000 ml # Bowel Movements 3 2 Height (Feet): 5 Height (Inches): 1.00 Weight (Pounds): 101 Objective Thin WW NCAT supple CTA RRR Soft Flat ND (+) GT (+) contractures (+) OBS KALEE SERRATO Jul 26, 2016 15:38
[2016-07-26] MEDS ORDERED: Tubing IV Secondary IV ONE (17:24)
[2016-07-26] MEDS ORDERED: NS 275ml ONE ×2 (17:24→22:30)
[2016-07-26] MEDS: Atorvastatin 20mg tab GT SCH (20:51)
[2016-07-26] MEDS: Acetaminophen 650mg/20.3ml NG PRN (20:52)
[2016-07-26] MEDS: Carvedilol 12.5mg tab GT SCH (21:00)
[2016-07-26] MEDS ORDERED: Diltiazem 25mg/5ml IV ONE (22:45)
[2016-07-26] MEDS ORDERED: NS 250 ML IVPB ONE (22:45)
--- NOTE | 2016-07-27 00:29 | Progress Note ---
DATE: 07/26/2016 CARDIOLOGY PROGRESS NOTE SUBJECTIVE: The patient's condition remained tenuous. She is now off steroids, but she has congestion and hypoxia. She remains on IV Lasix. She is off TPN and tolerating feedings by G-tube. OBJECTIVE: VITAL SIGNS: Blood pressure 90/52 earlier, now 121/76; heart rate 119, respiratory 20. She is afebrile. NECK: Supple. LUNGS: With coarse breath sounds and rales. CARDIAC: Regular rhythm. Rapid rate. Normal S1 and S2. ABDOMEN: Soft. EXTREMITIES: With dependent edema. LABORATORY DATA: Chest x-ray yesterday was reviewed there was continued signs of interstitial edema. IMPRESSION: 1. Dementia. 2. Dysphagia. 3. Status post surgical G-tube. 4. Hiatal hernia. 5. Acute on chronic diastolic congestive heart failure. 6. Ischemic cardiomyopathy. 7. Hypoxia. 8. Status post sepsis with shock. PLAN: Transition from IV to oral beta-crystal. Continue diuresis. Taper oxygen . Off steroids. Nutrition by G-tube. DVT prophylaxis. Thyroid replacement. Follow up on laboratories and chest x-ray. Remains high risk. Yohan Corbett M.D. DR: LINDY JOB#: [id number] CC:
--- NOTE | 2016-07-27 03:09 | Progress Note ---
DATE: 07/25/2016 CARDIOLOGY PROGRESS NOTE: SUBJECTIVE: The patient's condition remains quite tenuous. She remains in the direct observation unit. The patient is tolerating low rate of feeding by G-tube. She remains on a face mask with high oxygen requirements. OBJECTIVE: VITAL SIGNS: Blood pressure 130/70, heart rate 91, respiratory rate 18, monitor sinus and sinus tachycardia. LUNGS: Bilateral breath sounds with few rales. HEART: Regular rhythm and rate. Normal S1, S2 with a fourth heart sound. ABDOMEN: Soft. No distention or tenderness. EXTREMITIES: With dependent edema. LABORATORY AND DIAGNOSTIC DATA: Chest x-ray today reveals poor inspiration small right pleural effusion. Right IJ line is without any signs of bleeding at the entry site. IMPRESSION: 1. Status post sepsis with shock. 2. Polymicrobial urinary tract infection. 3. Hypoxia. 4. Acute on chronic diastolic congestive heart failure. 5. Ischemic cardiomyopathy. 6. Recovered hypothermia. 7. Dysphagia. 8. Status post gastrostomy tube. 9. Leukocytosis following steroids. PLAN: Follow up laboratory studies. Taper steroids. Taper oxygen needs as able. IV to oral beta-crystal therapy once tolerating G-tube feedings better. Diuresis efforts. Thyroid replacement. Yohan Corbett M.D. DR: Marychuy JOB#: [id number] CC:
[2016-07-27 04:32] VITALS: BP 91/56
[2016-07-27] MEDS: Acetaminophen 650mg/20.3ml NG PRN (06:24)
[2016-07-27] MEDS: NovoLOG Insulin Flexpen SUBQ SCH ×3 (06:27→18:00)
[2016-07-27 06:36] LABS: MEAN CORPUSCULAR HEMOGLOBIN 30.1 PG (27.0-31.0); MEAN CORPUSCULAR HGB CONC 33.1 G/DL (32.0-36.0); MEAN CORPUSCULAR VOLUME 91 FL (80-99); PLATELET COUNT 208 K/UL (150-450); RED BLOOD COUNT 3.38 M/UL (4.20-5.40); RED CELL DISTRIBUTION WIDTH 14.4 % (11.6-14.8); WHITE BLOOD COUNT 19.4 K/UL (4.8-10.8)
[2016-07-27 06:57] LABS: MAGNESIUM 1.5 mg/dL (1.7-2.5); PHOSPHORUS 2.8 mg/dL (2.5-4.8)
[2016-07-27 06:58] LABS: ALANINE AMINOTRANSFERASE 31 U/L (3-33); ALBUMIN/GLOBULIN RATIO 0.4 (1.0-2.7); ANION GAP 15 (5-15); ASPARTATE AMINO TRANSFERASE 28 U/L (5-40); CALCIUM 7.5 mg/dL (8.6-10.2); CARBON DIOXIDE 28 mEQ/L (20-30); CHLORIDE 104 mEQ/L (98-107); CREATININE 1.6 mg/dL (0.5-0.9); HEMOLYSIS 3; SODIUM 147 mEQ/L (135-145); TOTAL PROTEIN 5.3 g/dL (6.6-8.7)
[2016-07-27 07:12] LABS: POTASSIUM 2.4 mEQ/L (3.4-4.9)
--- NOTE | 2016-07-27 07:21 | General Progress Note ---
Assessment/Plan Problem List: (1) Hypothyroid ICD Codes: E03.9 - Hypothyroid SNOMED: 89609564 (2) Septic shock ICD Codes: A41.9 - Sepsis, unspecified organism; R65.21 - Severe sepsis with septic shock SNOMED: 30723472 (3) Acute renal failure ICD Codes: N17.9 - Acute kidney failure, unspecified SNOMED: 85901817 Qualifiers: Qualified Codes: N17.0 - Acute kidney failure with tubular necrosis (4) Sepsis ICD Codes: A41.9 - Sepsis, unspecified organism SNOMED: 15388878 (5) Altered mental status ICD Codes: R41.82 - Altered mental status, unspecified SNOMED: 852847169 Qualifiers: Qualified Codes: R41.0 - Disorientation, unspecified (6) Acute delirium ICD Codes: R41.0 - Acute delirium SNOMED: 3083525 (7) UTI (lower urinary tract infection) ICD Codes: N39.0 - UTI (lower urinary tract infection) SNOMED: 8287000 Status: deteriorating Assessment/Plan monitor cxr iv abx per id iv steroids - dc resp rx gt feeds ordered at low rate iv dig for afib with rvr replace k pulmonary status remains tenuous Subjective ROS Limited/Unobtainable: Yes Constitutional: Reports: malaise, weakness HEENT: Reports: no symptoms Cardiovascular: Reports: irregular heart rate Respiratory: Reports: SOB at rest, shortness of breath, sputum Gastrointestinal/Abdominal: Reports: difficulty swallowing Genitourinary: Reports: no symptoms Neurologic/Psychiatric: Reports: pre-existing deficit Endocrine: Reports: no symptoms Hematologic/Lymphatic: Reports: no symptoms Allergies: Coded Allergies: No Known Allergies (Unverified , 04/18/12) All Systems: reviewed and negative except above Subjective tolerating feeds no vomiting having afib with rvr. now on nasal cannular off lasix. Objective Last 24 Hour Vital Signs Date Time Temp Pulse Resp B/P Pulse Ox O2 Delivery O2 Flow Rate FiO2 07/27/16 04:32 98.2 142 20 91/56 99 Nasal Cannula 2.0 07/27/16 03:56 145 07/27/16 00:00 116 07/26/16 23:45 98.4 123 20 90/41 96 Nasal Cannula 2.0 07/26/16 23:26 165 90/49 07/26/16 22:00 170 24 87/48 97 Nasal Cannula 2.0 07/26/16 21:22 99.9 07/26/16 21:00 173 92/42 07/26/16 20:00 99.1 179 28 107/73 97 Nasal Cannula 2.0 07/26/16 20:00 173 07/26/16 18:05 119 121/76 07/26/16 16:00 98.4 119 20 121/76 99 Simple Mask 4.0 07/26/16 16:00 95 07/26/16 12:00 98.4 100 20 90/52 98 Simple Mask 4.0 07/26/16 12:00 100 07/26/16 11:45 100 90/52 07/26/16 09:18 122/64 07/26/16 08:30 98 Nasal Cannula 2.0 28 07/26/16 08:30 Nasal Cannula 2.0 28 07/26/16 08:00 98.4 93 20 122/64 100 Simple Mask 5.0 07/26/16 08:00 93 Intake and Output 07/26/16 07/27/16 19:00 07:00 Intake Total 55 ml 920 ml Output Total 500 ml 900 ml Balance -445 ml 20 ml Free Water 120 ml IV Total 250 ml Tube Feeding 55 ml 550 ml Output Urine Total 500 ml 900 ml # Bowel Movements 1 3 Laboratory Tests 07/27/16 05:00: White Blood Count 19.4H, Red Blood Count 3.38L, Hemoglobin 10.2L, Hematocrit 30.6L, Mean Corpuscular Volume 91, Mean Corpuscular Hemoglobin 30.1, Mean Corpuscular Hemoglobin Concent 33.1, Red Cell Distribution Width 14.4, Platelet Count 208, Mean Platelet Volume 11.0H, Neutrophils (%) (Auto) , Lymphocytes (%) (Auto) , Monocytes (%) (Auto) , Eosinophils (%) (Auto) , Basophils (%) (Auto) , Neutrophils % (Manual) [Pending], Lymphocytes % (Manual) [Pending], Platelet Estimate [Pending], Platelet Morphology [Pending], Sodium Level 147H, Potassium Level 2.4*L, Chloride Level 104, Carbon Dioxide Level 28, Anion Gap 15, Blood Urea Nitrogen 42H, Creatinine 1.6H, Estimat Glomerular Filtration Rate , Glucose Level 144H, Calcium Level 7.5L, Phosphorus Level 2.8, Magnesium Level 1.5L, Total Bilirubin 0.4, Aspartate Amino Transf (AST/SGOT) 28, Alanine Aminotransferase (ALT/SGPT) 31, Alkaline Phosphatase 103, Pro-B-Type Natriuretic Peptide 45702D, Total Protein 5.3L, Albumin 1.6L, Globulin 3.7, Albumin/Globulin Ratio 0.4L Height (Feet): 5 Height (Inches): 1.00 Weight (Pounds): 101 Objective General Appearance: WD/WN, alert, confused Neck: supple Cardiovascular: normal rate, regular rhythm Respiratory/Chest: few wheezes Abdomen: normal bowel sounds, non tender, soft, no organomegaly Edema: no edema noted Arm (L), no edema noted Arm (R), no edema noted Leg (L), no edema noted Leg (R), no edema noted Pedal (L), no edema noted Pedal (R), no edema noted Generalized Neurologic: disoriented Skin: normal pigmentation, warm/dry HA FRANCIS Jul 27, 2016 07:21
[2016-07-27] MEDS ORDERED: KCl 10% 40mEq/30ml liquid NG ONE (07:30)
[2016-07-27 08:00] VITALS: BP_SYST 105; BP_SYST 91; BP_DIAS 56; BP_DIAS 57
[2016-07-27] MEDS: Pantoprazole Inj IVP SCH (08:45)
[2016-07-27] MEDS: Ascorbic Acid 500mg tab GT SCH (08:46)
[2016-07-27] MEDS: Fluconazole 100mg tab GT SCH (08:46)
[2016-07-27] MEDS: Carvedilol 12.5mg tab GT SCH ×2 (08:46→20:45)
[2016-07-27] MEDS: Digoxin 0.5mg/2ml Inj IVP SCH (08:48)
[2016-07-27] MEDS: KCl 10mEq 100ml Premix IVPB SCH ×3 (08:55→12:06)
[2016-07-27] MEDS: Lisinopril 10mg tab GT SCH (09:00)
[2016-07-27] MEDS: Aspirin Baby 81mg GT SCH (09:18)
[2016-07-27 10:34] LABS: BAND NEUTROPHILS % (MANUAL) 0 % (0-8); BASOPHILS % (MANUAL) 0 % (0-2); EOSINOPHILS % (MANUAL) 0 % (0-3); HYPOCHROMASIA 1+; LYMPHOCYTES % (MANUAL) 8 % (20-45); NEUTROPHILS % (MANUAL) 90 % (45-75); PLATELET ESTIMATE ADEQUATE; PLATELET MORPHOLOGY NORMAL; TOTAL CELLS COUNTED 100
[2016-07-27 10:35] LABS: ANISOCYTOSIS 1+
--- NOTE | 2016-07-27 11:28 | Infectious Diseases Prog Note ---
"Assessment/Plan Assessment/Plan antibiotics : fluconazole A 1. pseudomonas | e.coli UTI s/p rx 2. shock resolved 3. respiratory failure resolved 4. renal failure improving 5. leucocytosis improved likely secondary to steroids 6. pneumonia s/p rx 7. fungal UTI P 1. continue fluconazole 4 more days 2. will follow up cultures Subjective ROS Limited/Unobtainable: Yes Allergies: Coded Allergies: No Known Allergies (Unverified , 04/18/12) Objective Vital Signs Last 24 Hour Vital Signs Date Time Temp Pulse Resp B/P Pulse Ox O2 Delivery O2 Flow Rate FiO2 07/27/16 09:00 105/62 07/27/16 08:48 140 07/27/16 08:46 140 105/62 07/27/16 08:00 98.1 90 22 105/57 98 Nasal Cannula 2.0 07/27/16 08:00 98.2 90 20 91/56 99 Nasal Cannula 2.0 07/27/16 08:00 90 07/27/16 08:00 90 07/27/16 06:54 98.2 07/27/16 04:32 98.2 142 20 91/56 99 Nasal Cannula 2.0 07/27/16 03:56 145 07/27/16 00:00 116 07/26/16 23:45 98.4 123 20 90/41 96 Nasal Cannula 2.0 07/26/16 23:26 165 90/49 07/26/16 22:00 170 24 87/48 97 Nasal Cannula 2.0 07/26/16 21:00 173 92/42 07/26/16 20:00 99.1 179 28 107/73 97 Nasal Cannula 2.0 07/26/16 20:00 173 07/26/16 18:05 119 121/76 07/26/16 16:00 98.4 119 20 121/76 99 Simple Mask 4.0 07/26/16 16:00 95 07/26/16 12:00 98.4 100 20 90/52 98 Simple Mask 4.0 07/26/16 12:00 100 07/26/16 11:45 100 90/52 Height (Feet): 5 Height (Inches): 1.00 Weight (Pounds): 101 Respiratory/Chest: lungs clear Cardiovascular: normal rate, regular rhythm, no gallop/murmur Abdomen: soft, non tender, other - GT Extremities: no edema, other - right IJ Laboratory Tests Test 07/27/16 05:00 White Blood Count 19.4 K/UL (4.8-10.8) H Red Blood Count 3.38 M/UL (4.20-5.40) L Hemoglobin 10.2 G/DL (12.0-16.0) L Hematocrit 30.6 % (37.0-47.0) L Mean Corpuscular Volume 91 FL (80-99) Mean Corpuscular Hemoglobin 30.1 PG (27.0-31.0) Mean Corpuscular Hemoglobin Concent 33.1 G/DL (32.0-36.0) Red Cell Distribution Width 14.4 % (11.6-14.8) Platelet Count 208 K/UL (150-450) Mean Platelet Volume 11.0 FL (6.5-10.1) H Neutrophils (%) (Auto) % (45.0-75.0) Lymphocytes (%) (Auto) % (20.0-45.0) Monocytes (%) (Auto) % (1.0-10.0) Eosinophils (%) (Auto) % (0.0-3.0) Basophils (%) (Auto) % (0.0-2.0) Differential Total Cells Counted 100 Neutrophils % (Manual) 90 % (45-75) H Lymphocytes % (Manual) 8 % (20-45) L Monocytes % (Manual) 2 % (1-10) Eosinophils % (Manual) 0 % (0-3) Basophils % (Manual) 0 % (0-2) Band Neutrophils 0 % (0-8) Platelet Estimate Adequate Platelet Morphology Normal Hypochromasia 1+ Anisocytosis 1+ Sodium Level 147 mEQ/L (135-145) H Potassium Level 2.4 mEQ/L (3.4-4.9) *L Chloride Level 104 mEQ/L (98-107) Carbon Dioxide Level 28 mEQ/L (20-30) Anion Gap 15 (5-15) Blood Urea Nitrogen 42 mg/dL (7-23) H Creatinine 1.6 mg/dL (0.5-0.9) H Estimat Glomerular Filtration Rate mL/min (>60) Glucose Level 144 mg/dL (74-106) H Calcium Level 7.5 mg/dL (8.6-10.2) L Phosphorus Level 2.8 mg/dL (2.5-4.8) Magnesium Level 1.5 mg/dL (1.7-2.5) L Total Bilirubin 0.4 mg/dL (0.0-1.2) Aspartate Amino Transf (AST/SGOT) 28 U/L (5-40) Alanine Aminotransferase (ALT/SGPT) 31 U/L (3-33) Alkaline Phosphatase 103 U/L (35-104) Pro-B-Type Natriuretic Peptide 77753 pg/mL (0-450) H Total Protein 5.3 g/dL (6.6-8.7) L Albumin 1.6 g/dL (3.5-5.2) L Globulin 3.7 g/dL Albumin/Globulin Ratio 0.4 (1.0-2.7) L DAMIAN GUZMAN Jul 27, 2016 11:28"
--- NOTE | 2016-07-27 11:47 | Critical Care Progress Note ---
Assessment/Plan Assessment/Plan IMPRESSION: Respiratory failure, resolved, sepsis, shock, hypothermia, hypotension-recurrent, history of dementia, history congestive heart failure, history of coronary artery disease, history of hypertension, possible acute on chronic renal failure, t lactic acidemia, protein-calorie malnutrition, and profound leukocytosis-resolved; fevers PLAN pulmonary care as is still with leukocytosis fluid management noted cardiology follow up chest xr with hypoventilatory changes; will order repeat PRN exam noted and edited care reviewed in detail optimize and monitor respiratory status monitor for aspiration and congestion follow up closely as fairly labile transition to SNF when cleared medications/laboratory data/nursing notes reviewed in detail note reviewed and edited care discussed with RN and RT Critical Care - Subjective Interval Events: no distress on low flow oxygen ROS Limited/Unobtainable: Yes Condition: unchanged EKG Rhythm: Sinus Rhythm Residuals: minimal Tube Feeding Tolerated: yes I&O: Intake and Output 07/26/16 07/27/16 19:00 07:00 Intake Total 55 ml 920 ml Output Total 500 ml 900 ml Balance -445 ml 20 ml Free Water 120 ml IV Total 250 ml Tube Feeding 55 ml 550 ml Output Urine Total 500 ml 900 ml # Bowel Movements 1 3 Critical Care - Objective ET-Tube: 8.0 ET Position: 24 Last 24 Hour Vital Signs Date Time Temp Pulse Resp B/P Pulse Ox O2 Delivery O2 Flow Rate FiO2 07/27/16 09:00 105/62 07/27/16 08:48 140 07/27/16 08:46 140 105/62 07/27/16 08:00 98.1 90 22 105/57 98 Nasal Cannula 2.0 07/27/16 08:00 98.2 90 20 91/56 99 Nasal Cannula 2.0 07/27/16 08:00 90 07/27/16 08:00 90 07/27/16 06:54 98.2 07/27/16 04:32 98.2 142 20 91/56 99 Nasal Cannula 2.0 07/27/16 03:56 145 07/27/16 00:00 116 07/26/16 23:45 98.4 123 20 90/41 96 Nasal Cannula 2.0 07/26/16 23:26 165 90/49 07/26/16 22:00 170 24 87/48 97 Nasal Cannula 2.0 07/26/16 21:00 173 92/42 07/26/16 20:00 99.1 179 28 107/73 97 Nasal Cannula 2.0 07/26/16 20:00 173 07/26/16 18:05 119 121/76 07/26/16 16:00 98.4 119 20 121/76 99 Simple Mask 4.0 07/26/16 16:00 95 07/26/16 12:00 98.4 100 20 90/52 98 Simple Mask 4.0 07/26/16 12:00 100 Labs: Labs Test 07/27/16 05:00 White Blood Count 19.4 K/UL (4.8-10.8) Red Blood Count 3.38 M/UL (4.20-5.40) Hemoglobin 10.2 G/DL (12.0-16.0) Hematocrit 30.6 % (37.0-47.0) Mean Corpuscular Volume 91 FL (80-99) Mean Corpuscular Hemoglobin 30.1 PG (27.0-31.0) Mean Corpuscular Hemoglobin Concent 33.1 G/DL (32.0-36.0) Red Cell Distribution Width 14.4 % (11.6-14.8) Platelet Count 208 K/UL (150-450) Mean Platelet Volume 11.0 FL (6.5-10.1) Neutrophils (%) (Auto) % (45.0-75.0) Lymphocytes (%) (Auto) % (20.0-45.0) Monocytes (%) (Auto) % (1.0-10.0) Eosinophils (%) (Auto) % (0.0-3.0) Basophils (%) (Auto) % (0.0-2.0) Differential Total Cells Counted 100 Neutrophils % (Manual) 90 % (45-75) Lymphocytes % (Manual) 8 % (20-45) Monocytes % (Manual) 2 % (1-10) Eosinophils % (Manual) 0 % (0-3) Basophils % (Manual) 0 % (0-2) Band Neutrophils 0 % (0-8) Platelet Estimate Adequate Platelet Morphology Normal Hypochromasia 1+ Anisocytosis 1+ Sodium Level 147 mEQ/L (135-145) Potassium Level 2.4 mEQ/L (3.4-4.9) Chloride Level 104 mEQ/L (98-107) Carbon Dioxide Level 28 mEQ/L (20-30) Anion Gap 15 (5-15) Blood Urea Nitrogen 42 mg/dL (7-23) Creatinine 1.6 mg/dL (0.5-0.9) Estimat Glomerular Filtration Rate mL/min (>60) Glucose Level 144 mg/dL (74-106) Calcium Level 7.5 mg/dL (8.6-10.2) Phosphorus Level 2.8 mg/dL (2.5-4.8) Magnesium Level 1.5 mg/dL (1.7-2.5) Total Bilirubin 0.4 mg/dL (0.0-1.2) Aspartate Amino Transf (AST/SGOT) 28 U/L (5-40) Alanine Aminotransferase (ALT/SGPT) 31 U/L (3-33) Alkaline Phosphatase 103 U/L (35-104) Pro-B-Type Natriuretic Peptide 29784 pg/mL (0-450) Total Protein 5.3 g/dL (6.6-8.7) Albumin 1.6 g/dL (3.5-5.2) Globulin 3.7 g/dL Albumin/Globulin Ratio 0.4 (1.0-2.7) Objective: GENERAL: A well-developed female, NAD HEENT: Fairly negative. NAD NECK: Supple. No jugular venous distention. LUNGS: moderate breath sounds without rhonchi; Moderate air entry. occasional rhonchi CARDIAC: S1 and S2. RRR without murmurs, rubs, or gallops. ABDOMEN: Soft, nontender, and nondistended. no HSM; GT EXTREMITIES: No cyanosis or clubbing. No edema. NEUROLOGICAL: Grossly nonfocal. contracted and withdrawn reviewed and edited; no significant change Accucheck: 176 MARCELO BIRMINGHAM Jul 27, 2016 11:47
[2016-07-27 12:00] VITALS: BP 103/55
[2016-07-27] MEDS ORDERED: NS 275ml ONE (14:23)
[2016-07-27] MEDS ORDERED: NS 550ML IV ONE (14:23)
[2016-07-27 16:00] VITALS: BP 136/62
[2016-07-27 20:00] VITALS: BP 132/66
[2016-07-27] MEDS: Atorvastatin 20mg tab GT SCH (20:45)
[2016-07-28] VITALS: BP 121/58
[2016-07-28] MEDS: NovoLOG Insulin Flexpen SUBQ SCH ×4 (00:32→17:15)
[2016-07-28] MEDS ORDERED: KCl 10% 20 mEq/15ml liquid GT ONE (00:45)
--- NOTE | 2016-07-28 01:09 | Progress Note ---
DATE: 07/27/2016 CARDIOLOGY PROGRESS NOTE SUBJECTIVE: The patient developed rapid atrial fibrillation. Therapy was initiated for rate control. OBJECTIVE: VITAL SIGNS: Blood pressure 91/56, pulse 142, respiratory rate 20, and afebrile. LUNGS: Bilateral breath sounds. Diminished at the bases. HEART: Irregularly regular rhythm, rapid rate. Normal S1, S2. ABDOMEN: Soft. G-tube intact. EXTREMITIES: With trace edema. LABORATORY DATA: White count 19, hemoglobin 10. Sodium 137, potassium 3.4, bicarbonate 28, BUN 42, and creatinine 1.6. Magnesium 1.5, Pro-natriuretic peptide 31,000, albumin 1.6. IMPRESSION: 1. Shock. 2. Sepsis. 3. Dysphagia, status post G-tube. 4. Acute on chronic diastolic congestive heart failure. 5. Severe hypokalemia. 6. Hypomagnesemia. 7. Paroxysmal atrial fibrillation with rapid ventricular response. 8. Pleural effusions. 9. Hypothyroidism on replacement therapy. PLAN: 1. Hold diuretics, volume resuscitation. 2. IV magnesium and potassium. 3. Hold antihypertensive. Beta-crystal and digitalis for rate control. Yohan Corbett M.D. DR: MARCELLUS JOB#: [id number] CC:
[2016-07-28 04:00] VITALS: BP 118/65
[2016-07-28 05:52] LABS: MEAN CORPUSCULAR HEMOGLOBIN 30.3 PG (27.0-31.0); MEAN CORPUSCULAR VOLUME 95 FL (80-99); MEAN PLATELET VOLUME 10.1 FL (6.5-10.1); PLATELET COUNT 192 K/UL (150-450); RED BLOOD COUNT 3.21 M/UL (4.20-5.40); RED CELL DISTRIBUTION WIDTH 14.7 % (11.6-14.8)
[2016-07-28 06:22] LABS: ALANINE AMINOTRANSFERASE 30 U/L (3-33); ALBUMIN/GLOBULIN RATIO 0.4 (1.0-2.7); ANION GAP 14 (5-15); ASPARTATE AMINO TRANSFERASE 29 U/L (5-40); CALCIUM 7.6 mg/dL (8.6-10.2); CARBON DIOXIDE 25 mEQ/L (20-30); CHLORIDE 108 mEQ/L (98-107); CREATININE 1.6 mg/dL (0.5-0.9); HEMOLYSIS 8; POTASSIUM 3.3 mEQ/L (3.4-4.9); SODIUM 147 mEQ/L (135-145); TOTAL PROTEIN 5.6 g/dL (6.6-8.7)
--- NOTE | 2016-07-28 07:12 | General Progress Note ---
Assessment/Plan Problem List: (1) Hypothyroid ICD Codes: E03.9 - Hypothyroid SNOMED: 96127439 (2) Septic shock ICD Codes: A41.9 - Sepsis, unspecified organism; R65.21 - Severe sepsis with septic shock SNOMED: 57888832 (3) Acute renal failure ICD Codes: N17.9 - Acute kidney failure, unspecified SNOMED: 09293676 Qualifiers: Qualified Codes: N17.0 - Acute kidney failure with tubular necrosis (4) Sepsis ICD Codes: A41.9 - Sepsis, unspecified organism SNOMED: 51311031 (5) Altered mental status ICD Codes: R41.82 - Altered mental status, unspecified SNOMED: 222362567 Qualifiers: Qualified Codes: R41.0 - Disorientation, unspecified (6) Acute delirium ICD Codes: R41.0 - Acute delirium SNOMED: 7613566 (7) UTI (lower urinary tract infection) ICD Codes: N39.0 - UTI (lower urinary tract infection) SNOMED: 8108900 Status: stable, progressing Assessment/Plan monitor cxr iv abx per id iv steroids - dc resp rx gt feeds ordered at low rate hypotonic ivf ordered. repeat labs in am replace k pulmonary status remains tenuous Subjective ROS Limited/Unobtainable: Yes Constitutional: Reports: malaise, weakness HEENT: Reports: no symptoms Cardiovascular: Reports: palpitations Respiratory: Reports: cough, shortness of breath Gastrointestinal/Abdominal: Reports: difficulty swallowing Genitourinary: Reports: no symptoms Neurologic/Psychiatric: Reports: pre-existing deficit Endocrine: Reports: no symptoms Hematologic/Lymphatic: Reports: anemia Allergies: Coded Allergies: No Known Allergies (Unverified , 04/18/12) All Systems: reviewed and negative except above Subjective tolerating feeds no vomiting tachycardia better worsening renal insuff and hypernatremia noted. now on nasal cannula off lasix. d/w rn Objective Last 24 Hour Vital Signs Date Time Temp Pulse Resp B/P Pulse Ox O2 Delivery O2 Flow Rate FiO2 07/28/16 04:00 107 07/28/16 04:00 98.2 75 18 118/65 94 Nasal Cannula 2.0 07/28/16 00:00 98.8 85 24 121/58 94 Nasal Cannula 2.0 07/28/16 00:00 90 07/27/16 20:45 134 136/70 07/27/16 20:00 78 07/27/16 20:00 98.2 83 18 132/66 99 Nasal Cannula 2.0 07/27/16 19:30 Nasal Cannula 2.0 28 07/27/16 19:30 98 Nasal Cannula 2.0 28 07/27/16 16:00 82 07/27/16 16:00 97.9 85 17 136/62 99 Nasal Cannula 2.0 07/27/16 12:00 80 07/27/16 12:00 97.3 80 20 103/55 94 Nasal Cannula 2.0 07/27/16 09:00 105/62 07/27/16 08:48 140 07/27/16 08:46 140 105/62 07/27/16 08:00 98.1 90 22 105/57 98 Nasal Cannula 2.0 07/27/16 08:00 98.2 90 20 91/56 99 Nasal Cannula 2.0 07/27/16 08:00 90 07/27/16 08:00 90 Intake and Output 07/27/16 07/28/16 19:00 07:00 Intake Total 275 ml 810 ml Output Total 200 ml 350 ml Balance 75 ml 460 ml Free Water 160 ml Tube Feeding 275 ml 550 ml Other 100 ml Output Urine Total 200 ml 350 ml # Bowel Movements 2 3 Laboratory Tests 07/28/16 04:45: White Blood Count 20.0H, Red Blood Count 3.21L, Hemoglobin 9.7L, Hematocrit 30.4L, Mean Corpuscular Volume 95, Mean Corpuscular Hemoglobin 30.3, Mean Corpuscular Hemoglobin Concent 32.0, Red Cell Distribution Width 14.7, Platelet Count 192, Mean Platelet Volume 10.1, Neutrophils (%) (Auto) , Lymphocytes (%) ( Auto) , Monocytes (%) (Auto) , Eosinophils (%) (Auto) , Basophils (%) (Auto) , Neutrophils % (Manual) [Pending], Lymphocytes % (Manual) [Pending], Platelet Estimate [Pending], Platelet Morphology [Pending], Sodium Level 147H, Potassium Level 3.3L, Chloride Level 108H, Carbon Dioxide Level 25, Anion Gap 14, Blood Urea Nitrogen 39H, Creatinine 1.6H, Estimat Glomerular Filtration Rate , Glucose Level 288#H, Calcium Level 7.6L, Total Bilirubin 0.3, Aspartate Amino Transf (AST/SGOT) 29, Alanine Aminotransferase (ALT/SGPT) 30, Alkaline Phosphatase 124H, Total Protein 5.6L, Albumin 1.8L, Globulin 3.8, Albumin/ Globulin Ratio 0.4L Height (Feet): 5 Height (Inches): 1.00 Weight (Pounds): 101 Objective General Appearance: WD/WN, alert, confused Neck: supple Cardiovascular: normal rate, regular rhythm Respiratory/Chest: few wheezes Abdomen: normal bowel sounds, non tender, soft, no organomegaly Edema: no edema noted Arm (L), no edema noted Arm (R), no edema noted Leg (L), no edema noted Leg (R), no edema noted Pedal (L), no edema noted Pedal (R), no edema noted Generalized Neurologic: disoriented Skin: normal pigmentation, warm/dry HA FRANCIS Jul 28, 2016 07:12
--- NOTE | 2016-07-28 07:52 | Critical Care Progress Note ---
Assessment/Plan Assessment/Plan IMPRESSION: Respiratory failure, resolved, sepsis, shock, hypothermia, hypotension-recurrent, history of dementia, history congestive heart failure, history of coronary artery disease, history of hypertension, possible acute on chronic renal failure, t lactic acidemia, protein-calorie malnutrition, and profound leukocytosis-resolved; fevers PLAN pulmonary care as is still with leukocytosis; ID noted fluid management noted cardiology follow up chest xr with hypoventilatory changes; monitor exam noted and edited care reviewed in detail optimize and monitor respiratory status monitor for aspiration and congestion follow up closely for change transition to SNF when cleared medications/laboratory data/nursing notes reviewed in detail note reviewed and edited care discussed with RN and RT Critical Care - Subjective ROS Limited/Unobtainable: Yes Condition: stable I&O: Intake and Output 07/27/16 07/28/16 19:00 07:00 Intake Total 275 ml 910 ml Output Total 200 ml 350 ml Balance 75 ml 560 ml Free Water 160 ml IV Total 100 ml Tube Feeding 275 ml 550 ml Other 100 ml Output Urine Total 200 ml 350 ml # Bowel Movements 2 3 Critical Care - Objective ET-Tube: 8.0 ET Position: 24 Last 24 Hour Vital Signs Date Time Temp Pulse Resp B/P Pulse Ox O2 Delivery O2 Flow Rate FiO2 07/28/16 04:00 107 07/28/16 04:00 98.2 75 18 118/65 94 Nasal Cannula 2.0 07/28/16 00:00 98.8 85 24 121/58 94 Nasal Cannula 2.0 07/28/16 00:00 90 07/27/16 20:45 134 136/70 07/27/16 20:00 78 07/27/16 20:00 98.2 83 18 132/66 99 Nasal Cannula 2.0 07/27/16 19:30 Nasal Cannula 2.0 28 07/27/16 19:30 98 Nasal Cannula 2.0 28 07/27/16 16:00 82 07/27/16 16:00 97.9 85 17 136/62 99 Nasal Cannula 2.0 07/27/16 12:00 80 07/27/16 12:00 97.3 80 20 103/55 94 Nasal Cannula 2.0 07/27/16 09:00 105/62 07/27/16 08:48 140 07/27/16 08:46 140 105/62 07/27/16 08:00 98.1 90 22 105/57 98 Nasal Cannula 2.0 07/27/16 08:00 98.2 90 20 91/56 99 Nasal Cannula 2.0 07/27/16 08:00 90 07/27/16 08:00 90 Labs: Labs Test 07/27/16 05:00 07/28/16 04:45 White Blood Count 19.4 K/UL (4.8-10.8) 20.0 K/UL (4.8-10.8) Red Blood Count 3.38 M/UL (4.20-5.40) 3.21 M/UL (4.20-5.40) Hemoglobin 10.2 G/DL (12.0-16.0) 9.7 G/DL (12.0-16.0) Hematocrit 30.6 % (37.0-47.0) 30.4 % (37.0-47.0) Mean Corpuscular Volume 91 FL (80-99) 95 FL (80-99) Mean Corpuscular Hemoglobin 30.1 PG (27.0-31.0) 30.3 PG (27.0-31.0) Mean Corpuscular Hemoglobin Concent 33.1 G/DL (32.0-36.0) 32.0 G/DL (32.0-36.0) Red Cell Distribution Width 14.4 % (11.6-14.8) 14.7 % (11.6-14.8) Platelet Count 208 K/UL (150-450) 192 K/UL (150-450) Mean Platelet Volume 11.0 FL (6.5-10.1) 10.1 FL (6.5-10.1) Neutrophils (%) (Auto) % (45.0-75.0) % (45.0-75.0) Lymphocytes (%) (Auto) % (20.0-45.0) % (20.0-45.0) Monocytes (%) (Auto) % (1.0-10.0) % (1.0-10.0) Eosinophils (%) (Auto) % (0.0-3.0) % (0.0-3.0) Basophils (%) (Auto) % (0.0-2.0) % (0.0-2.0) Differential Total Cells Counted 100 Neutrophils % (Manual) 90 % (45-75) Lymphocytes % (Manual) 8 % (20-45) Monocytes % (Manual) 2 % (1-10) Eosinophils % (Manual) 0 % (0-3) Basophils % (Manual) 0 % (0-2) Band Neutrophils 0 % (0-8) Platelet Estimate Adequate Platelet Morphology Normal Hypochromasia 1+ Anisocytosis 1+ Sodium Level 147 mEQ/L (135-145) 147 mEQ/L (135-145) Potassium Level 2.4 mEQ/L (3.4-4.9) 3.3 mEQ/L (3.4-4.9) Chloride Level 104 mEQ/L (98-107) 108 mEQ/L (98-107) Carbon Dioxide Level 28 mEQ/L (20-30) 25 mEQ/L (20-30) Anion Gap 15 (5-15) 14 (5-15) Blood Urea Nitrogen 42 mg/dL (7-23) 39 mg/dL (7-23) Creatinine 1.6 mg/dL (0.5-0.9) 1.6 mg/dL (0.5-0.9) Estimat Glomerular Filtration Rate mL/min (>60) mL/min (>60) Glucose Level 144 mg/dL (74-106) 288 mg/dL (74-106) Calcium Level 7.5 mg/dL (8.6-10.2) 7.6 mg/dL (8.6-10.2) Phosphorus Level 2.8 mg/dL (2.5-4.8) Magnesium Level 1.5 mg/dL (1.7-2.5) Total Bilirubin 0.4 mg/dL (0.0-1.2) 0.3 mg/dL (0.0-1.2) Aspartate Amino Transf (AST/SGOT) 28 U/L (5-40) 29 U/L (5-40) Alanine Aminotransferase (ALT/SGPT) 31 U/L (3-33) 30 U/L (3-33) Alkaline Phosphatase 103 U/L (35-104) 124 U/L (35-104) Pro-B-Type Natriuretic Peptide 95034 pg/mL (0-450) Total Protein 5.3 g/dL (6.6-8.7) 5.6 g/dL (6.6-8.7) Albumin 1.6 g/dL (3.5-5.2) 1.8 g/dL (3.5-5.2) Globulin 3.7 g/dL 3.8 g/dL Albumin/Globulin Ratio 0.4 (1.0-2.7) 0.4 (1.0-2.7) Objective: GENERAL: A well-developed female, NAD HEENT: Fairly negative. NAD NECK: Supple. No jugular venous distention. LUNGS: moderate breath sounds without rhonchi; Moderate air entry. no rhonchi CARDIAC: S1 and S2. RRR without murmurs, rubs, or gallops. ABDOMEN: Soft, nontender, and nondistended. no HSM; GT EXTREMITIES: No cyanosis or clubbing. No edema. NEUROLOGICAL: Grossly nonfocal. contracted and withdrawn reviewed and edited; no significant change Accucheck: 283 MARCELO [place] Jul 28, 2016 07:52
[2016-07-28 08:00] VITALS: BP 123/71
[2016-07-28] MEDS ORDERED: KCl 10% 20 mEq/15ml liquid NG ONE (08:00)
[2016-07-28 08:03] LABS: BAND NEUTROPHILS % (MANUAL) 1 % (0-8); EOSINOPHILS % (MANUAL) 1 % (0-3); LYMPHOCYTES % (MANUAL) 4 % (20-45); NEUTROPHILS % (MANUAL) 91 % (45-75); TOTAL CELLS COUNTED 100
[2016-07-28 08:07] LABS: BASOPHILS % (MANUAL) 0 % (0-2); PLATELET ESTIMATE ADEQUATE; PLATELET MORPHOLOGY NORMAL
[2016-07-28] MEDS: Aspirin Baby 81mg GT SCH (08:24)
[2016-07-28] MEDS: Carvedilol 12.5mg tab GT SCH ×2 (08:28→21:00)
[2016-07-28] MEDS: Ascorbic Acid 500mg tab GT SCH (08:29)
[2016-07-28] MEDS: Fluconazole 100mg tab GT SCH (08:29)
[2016-07-28] MEDS: Digoxin 0.5mg/2ml Inj IVP SCH (08:30)
[2016-07-28] MEDS: Pantoprazole Inj IVP SCH (08:30)
--- NOTE | 2016-07-28 11:03 | Infectious Diseases Prog Note ---
"Assessment/Plan Assessment/Plan antibiotics : fluconazole A 1. pseudomonas | e.coli UTI s/p rx 2. shock resolved 3. respiratory failure resolved 4. renal failure improving 5. leucocytosis improved likely secondary to steroids 6. pneumonia s/p rx 7. fungal UTI P 1. continue fluconazole 3 more days 2. will follow up cultures Subjective ROS Limited/Unobtainable: Yes Allergies: Coded Allergies: No Known Allergies (Unverified , 04/18/12) Objective Vital Signs Last 24 Hour Vital Signs Date Time Temp Pulse Resp B/P Pulse Ox O2 Delivery O2 Flow Rate FiO2 07/28/16 08:30 99 07/28/16 08:28 99 123/71 07/28/16 08:00 97.9 87 16 123/71 97 Nasal Cannula 2.0 07/28/16 08:00 90 07/28/16 04:00 107 07/28/16 04:00 98.2 75 18 118/65 94 Nasal Cannula 2.0 07/28/16 00:00 98.8 85 24 121/58 94 Nasal Cannula 2.0 07/28/16 00:00 90 07/27/16 20:45 134 136/70 07/27/16 20:00 78 07/27/16 20:00 98.2 83 18 132/66 99 Nasal Cannula 2.0 07/27/16 19:30 Nasal Cannula 2.0 28 07/27/16 19:30 98 Nasal Cannula 2.0 28 07/27/16 16:00 82 07/27/16 16:00 97.9 85 17 136/62 99 Nasal Cannula 2.0 07/27/16 12:00 80 07/27/16 12:00 97.3 80 20 103/55 94 Nasal Cannula 2.0 Height (Feet): 5 Height (Inches): 1.00 Weight (Pounds): 101 Respiratory/Chest: lungs clear Cardiovascular: normal rate, regular rhythm, no gallop/murmur Abdomen: soft, non tender, other - GT Extremities: no edema, other - right IJ catheter Laboratory Tests Test 07/28/16 04:45 White Blood Count 20.0 K/UL (4.8-10.8) H Red Blood Count 3.21 M/UL (4.20-5.40) L Hemoglobin 9.7 G/DL (12.0-16.0) L Hematocrit 30.4 % (37.0-47.0) L Mean Corpuscular Volume 95 FL (80-99) Mean Corpuscular Hemoglobin 30.3 PG (27.0-31.0) Mean Corpuscular Hemoglobin Concent 32.0 G/DL (32.0-36.0) Red Cell Distribution Width 14.7 % (11.6-14.8) Platelet Count 192 K/UL (150-450) Mean Platelet Volume 10.1 FL (6.5-10.1) Neutrophils (%) (Auto) % (45.0-75.0) Lymphocytes (%) (Auto) % (20.0-45.0) Monocytes (%) (Auto) % (1.0-10.0) Eosinophils (%) (Auto) % (0.0-3.0) Basophils (%) (Auto) % (0.0-2.0) Differential Total Cells Counted 100 Neutrophils % (Manual) 91 % (45-75) H Lymphocytes % (Manual) 4 % (20-45) L Monocytes % (Manual) 3 % (1-10) Eosinophils % (Manual) 1 % (0-3) Basophils % (Manual) 0 % (0-2) Band Neutrophils 1 % (0-8) Platelet Estimate Adequate Platelet Morphology Normal Red Blood Cell Morphology Normal Sodium Level 147 mEQ/L (135-145) H Potassium Level 3.3 mEQ/L (3.4-4.9) L Chloride Level 108 mEQ/L (98-107) H Carbon Dioxide Level 25 mEQ/L (20-30) Anion Gap 14 (5-15) Blood Urea Nitrogen 39 mg/dL (7-23) H Creatinine 1.6 mg/dL (0.5-0.9) H Estimat Glomerular Filtration Rate mL/min (>60) Glucose Level 288 mg/dL (74-106) #H Calcium Level 7.6 mg/dL (8.6-10.2) L Total Bilirubin 0.3 mg/dL (0.0-1.2) Aspartate Amino Transf (AST/SGOT) 29 U/L (5-40) Alanine Aminotransferase (ALT/SGPT) 30 U/L (3-33) Alkaline Phosphatase 124 U/L (35-104) H Total Protein 5.6 g/dL (6.6-8.7) L Albumin 1.8 g/dL (3.5-5.2) L Globulin 3.8 g/dL Albumin/Globulin Ratio 0.4 (1.0-2.7) L DAMIAN GUZMAN Jul 28, 2016 11:03"
[2016-07-28 12:00] VITALS: BP 107/59
[2016-07-28 16:00] VITALS: BP 90/51
[2016-07-28 20:00] VITALS: BP 132/69
[2016-07-28] MEDS: Atorvastatin 20mg tab GT SCH (21:00)
[2016-07-29] VITALS: BP 106/63
[2016-07-29] MEDS: NovoLOG Insulin Flexpen SUBQ SCH ×4 (00:08→17:29)
[2016-07-29 05:06] LABS: MEAN CORPUSCULAR HEMOGLOBIN 29.8 PG (27.0-31.0); MEAN CORPUSCULAR HGB CONC 32.1 G/DL (32.0-36.0); MEAN CORPUSCULAR VOLUME 93 FL (80-99); MEAN PLATELET VOLUME 9.8 FL (6.5-10.1); PLATELET COUNT 182 K/UL (150-450); RED BLOOD COUNT 2.78 M/UL (4.20-5.40); RED CELL DISTRIBUTION WIDTH 14.5 % (11.6-14.8); WHITE BLOOD COUNT 19.7 K/UL (4.8-10.8)
--- NOTE | 2016-07-29 05:09 | Progress Note ---
DATE: 07/28/2016 CARDIOLOGY PROGRESS NOTE SUBJECTIVE: The patient remains in sinus rhythm with sinus tachycardia and atrial ectopics. No recurring episodes of rapid atrial fibrillation for the past 24 hours. The patient is off diuretics, IV fluid supplements for electrolyte disturbances . OBJECTIVE: VITAL SIGNS: Blood pressure is 107/59, pulse rate 97, and respiratory rate 18, and afebrile. HEENT: Temporal wasting. Dry mucous membranes. NECK: Supple. LUNGS: With coarse breath sounds. CARDIAC: Regular rhythm and rate. Normal S1, S2. Frequent ectopics. ABDOMEN: Soft. G-tube intact. EXTREMITIES: Trace edema. LABORATORY STUDIES: White count 20, hemoglobin 9.7, sodium 147, potassium 3.3, bicarbonate 25, BUN 39, and creatinine 1.6. Albumin is 1.8. IMPRESSION: 1. Severe protein calorie malnutrition. 2. Acute renal failure. 3. Hypokalemia. 4. Hypernatremia. 5. Dehydration. 6. Hypovolemia. 7. Acute on chronic diastolic congestive heart failure. 8. Ischemic cardiomyopathy. 9. Leukocytosis. 10. Anemia. 11. Urinary tract infection. 12. Sepsis recovering shock. PLAN: 1. Hypotonic fluids. 2. Hold diuretics. 3. Potassium replacement. 4. Protein supplement by feeding tube. 5. Respiratory hygiene. 6. Antimicrobials per Infectious Disease client insights consultant. 7. Baseline thyroid replacement. 8. Anti-failure and anti-ischemic regimen to be slowly resumed as clinical parameters stabilize. Yohan Corbett M.D. DR: MAL JOB#: [id number] CC:
[2016-07-29 05:26] LABS: ALANINE AMINOTRANSFERASE 24 U/L (3-33); ALBUMIN/GLOBULIN RATIO 0.4 (1.0-2.7); ANION GAP 11 (5-15); ASPARTATE AMINO TRANSFERASE 24 U/L (5-40); CALCIUM 7.1 mg/dL (8.6-10.2); CARBON DIOXIDE 27 mEQ/L (20-30); CHLORIDE 108 mEQ/L (98-107); CREATININE 1.5 mg/dL (0.5-0.9); HEMOLYSIS 2; POTASSIUM 3.2 mEQ/L (3.4-4.9); SODIUM 146 mEQ/L (135-145); TOTAL PROTEIN 5.2 g/dL (6.6-8.7)
[2016-07-29 05:32] LABS: MAGNESIUM 2.7 mg/dL (1.7-2.5)
[2016-07-29 07:44] LABS: BAND NEUTROPHILS % (MANUAL) 0 % (0-8); BASOPHILS % (MANUAL) 0 % (0-2); EOSINOPHILS % (MANUAL) 2 % (0-3); LYMPHOCYTES % (MANUAL) 6 % (20-45); NEUTROPHILS % (MANUAL) 86 % (45-75); PLATELET ESTIMATE ADEQUATE; PLATELET MORPHOLOGY NORMAL; TOTAL CELLS COUNTED 100
[2016-07-29 08:00] VITALS: BP 122/81
--- NOTE | 2016-07-29 08:35 | Infectious Diseases Prog Note ---
Assessment/Plan Assessment/Plan A 1. Persistent leukocytosis 2. Fungal UTI 4. Anemia 5. Dysphagia s/p GT placement 6. Atelectasis P 1. Continue Fluconazole X 2 days 2. will f/u CBC, CXR Subjective ROS Limited/Unobtainable: Yes Respiratory: Reports: productive cough Allergies: Coded Allergies: No Known Allergies (Unverified , 04/18/12) Objective Vital Signs Last 24 Hour Vital Signs Date Time Temp Pulse Resp B/P Pulse Ox O2 Delivery O2 Flow Rate FiO2 07/29/16 04:00 89 07/29/16 00:00 85 07/29/16 00:00 98.4 90 20 106/63 98 Nasal Cannula 2.0 07/28/16 21:00 99 132/69 07/28/16 20:00 98.2 99 20 132/69 95 Nasal Cannula 2.0 07/28/16 20:00 100 07/28/16 19:00 95 Nasal Cannula 2.0 28 07/28/16 19:00 Nasal Cannula 2.0 28 07/28/16 16:00 98.4 79 18 90/51 99 Nasal Cannula 2.0 07/28/16 16:00 97 07/28/16 12:00 98.1 97 18 107/59 99 Nasal Cannula 2.0 07/28/16 12:00 92 Height (Feet): 5 Height (Inches): 1.00 Weight (Pounds): 101 General Appearance: no acute distress HEENT: mucous membranes moist Respiratory/Chest: lungs clear, other - O2 by cannula Cardiovascular: normal rate Abdomen: soft, non tender, other - GT feeding Extremities: no edema Neurologic/Psychiatric: aphasia Laboratory Tests Test 07/29/16 03:45 White Blood Count 19.7 K/UL (4.8-10.8) H Red Blood Count 2.78 M/UL (4.20-5.40) L Hemoglobin 8.3 G/DL (12.0-16.0) L Hematocrit 25.9 % (37.0-47.0) L Mean Corpuscular Volume 93 FL (80-99) Mean Corpuscular Hemoglobin 29.8 PG (27.0-31.0) Mean Corpuscular Hemoglobin Concent 32.1 G/DL (32.0-36.0) Red Cell Distribution Width 14.5 % (11.6-14.8) Platelet Count 182 K/UL (150-450) Mean Platelet Volume 9.8 FL (6.5-10.1) Neutrophils (%) (Auto) % (45.0-75.0) Lymphocytes (%) (Auto) % (20.0-45.0) Monocytes (%) (Auto) % (1.0-10.0) Eosinophils (%) (Auto) % (0.0-3.0) Basophils (%) (Auto) % (0.0-2.0) Differential Total Cells Counted 100 Neutrophils % (Manual) 86 % (45-75) H Lymphocytes % (Manual) 6 % (20-45) L Monocytes % (Manual) 6 % (1-10) Eosinophils % (Manual) 2 % (0-3) Basophils % (Manual) 0 % (0-2) Band Neutrophils 0 % (0-8) Platelet Estimate Adequate Platelet Morphology Normal Red Blood Cell Morphology Normal Sodium Level 146 mEQ/L (135-145) H Potassium Level 3.2 mEQ/L (3.4-4.9) L Chloride Level 108 mEQ/L (98-107) H Carbon Dioxide Level 27 mEQ/L (20-30) Anion Gap 11 (5-15) Blood Urea Nitrogen 35 mg/dL (7-23) H Creatinine 1.5 mg/dL (0.5-0.9) H Estimat Glomerular Filtration Rate mL/min (>60) Glucose Level 104 mg/dL (74-106) # Calcium Level 7.1 mg/dL (8.6-10.2) L Phosphorus Level Pending Magnesium Level 2.7 mg/dL (1.7-2.5) H Total Bilirubin 0.2 mg/dL (0.0-1.2) Aspartate Amino Transf (AST/SGOT) 24 U/L (5-40) Alanine Aminotransferase (ALT/SGPT) 24 U/L (3-33) Alkaline Phosphatase 118 U/L (35-104) H Pro-B-Type Natriuretic Peptide Pending Total Protein 5.2 g/dL (6.6-8.7) L Albumin 1.6 g/dL (3.5-5.2) L Globulin 3.6 g/dL Albumin/Globulin Ratio 0.4 (1.0-2.7) L Current Medications Medications (Trade) Dose Ordered Sig/Trip Route PRN Reason Start Time Stop Time Status Last Admin Dose Admin Acetaminophen (Tylenol) 650 mg Q4H PRN NG Prn Headache/Temp > 101 07/16/16 23:34 08/15/16 23:33 07/27/16 06:24 Ascorbic Acid (Vitamin C) 500 mg DAILY GT 07/24/16 16:49 08/23/16 08:59 07/28/16 08:29 Aspirin (ASA) 81 mg DAILY GT 07/24/16 16:49 08/16/16 08:59 07/28/16 08:24 Atorvastatin Calcium (Lipitor) 20 mg BEDTIME GT 07/24/16 16:49 08/16/16 20:59 07/28/16 21:00 Carvedilol (Coreg) 12.5 mg EVERY 12 HOURS GT 07/26/16 21:00 08/25/16 20:59 07/28/16 21:00 Dextrose (Dextrose 50%) STAT PRN IV Hypoglycemia 07/17/16 17:30 08/16/16 17:29 Digoxin (Lanoxin) 0.25 mg DAILY IVP 07/27/16 09:00 08/26/16 08:59 07/28/16 08:30 Fluconazole (Diflucan) 100 mg DAILY GT 07/27/16 09:00 07/30/16 08:59 07/28/16 08:29 Insulin Aspart (NovoLOG) Q6HR SUBQ 07/17/16 21:00 08/16/16 20:59 07/29/16 05:40 Levothyroxine Sodium (Synthroid) 100 mcg DAILY IV 07/19/16 09:00 08/18/16 08:59 07/28/16 08:33 Pantoprazole (Protonix) 40 mg DAILY IVP 07/17/16 09:00 08/16/16 08:59 07/28/16 08:30 JAMEEL TRIPATHI Jul 29, 2016 08:34
--- NOTE | 2016-07-29 09:49 | Critical Care Progress Note ---
Assessment/Plan Assessment/Plan IMPRESSION: Respiratory failure, resolved, sepsis, shock, hypothermia, hypotension-recurrent, history of dementia, history congestive heart failure, history of coronary artery disease, history of hypertension, possible acute on chronic renal failure, t lactic acidemia, protein-calorie malnutrition, and profound leukocytosis-resolved; fevers PLAN pulmonary care as is still with leukocytosis; ID noted and reviewed fluid management noted cardiology follow up for change; monitor rhythm chest xr with hypoventilatory changes; monitor exam noted and edited care reviewed in detail monitor respiratory status monitor for aspiration follow up closely for change transition to SNF when cleared and stable still labile medications/laboratory data/nursing notes reviewed in detail note reviewed and edited care discussed with RN and RT Critical Care - Subjective ROS Limited/Unobtainable: Yes Condition: stable EKG Rhythm: Sinus Rhythm I&O: Intake and Output 07/28/16 07/29/16 19:00 07:00 Intake Total 1530 ml 1260 ml Output Total 350 ml 300 ml Balance 1180 ml 960 ml Free Water 100 ml 100 ml IV Total 800 ml 800 ml Tube Feeding 630 ml 360 ml Output Urine Total 350 ml 300 ml # Bowel Movements 3 1 Critical Care - Objective ET-Tube: 8.0 ET Position: 24 Last 24 Hour Vital Signs Date Time Temp Pulse Resp B/P Pulse Ox O2 Delivery O2 Flow Rate FiO2 07/29/16 08:00 98.6 123 21 122/81 98 Nasal Cannula 2.0 07/29/16 04:00 89 07/29/16 00:00 85 07/29/16 00:00 98.4 90 20 106/63 98 Nasal Cannula 2.0 07/28/16 21:00 99 132/69 07/28/16 20:00 98.2 99 20 132/69 95 Nasal Cannula 2.0 07/28/16 20:00 100 07/28/16 19:00 95 Nasal Cannula 2.0 28 07/28/16 19:00 Nasal Cannula 2.0 28 07/28/16 16:00 98.4 79 18 90/51 99 Nasal Cannula 2.0 07/28/16 16:00 97 07/28/16 12:00 98.1 97 18 107/59 99 Nasal Cannula 2.0 07/28/16 12:00 92 Labs: Labs Test 07/27/16 05:00 07/28/16 04:45 07/29/16 03:45 White Blood Count 19.4 K/UL (4.8-10.8) 20.0 K/UL (4.8-10.8) 19.7 K/UL (4.8-10.8) Red Blood Count 3.38 M/UL (4.20-5.40) 3.21 M/UL (4.20-5.40) 2.78 M/UL (4.20-5.40) Hemoglobin 10.2 G/DL (12.0-16.0) 9.7 G/DL (12.0-16.0) 8.3 G/DL (12.0-16.0) Hematocrit 30.6 % (37.0-47.0) 30.4 % (37.0-47.0) 25.9 % (37.0-47.0) Mean Corpuscular Volume 91 FL (80-99) 95 FL (80-99) 93 FL (80-99) Mean Corpuscular Hemoglobin 30.1 PG (27.0-31.0) 30.3 PG (27.0-31.0) 29.8 PG (27.0-31.0) Mean Corpuscular Hemoglobin Concent 33.1 G/DL (32.0-36.0) 32.0 G/DL (32.0-36.0) 32.1 G/DL (32.0-36.0) Red Cell Distribution Width 14.4 % (11.6-14.8) 14.7 % (11.6-14.8) 14.5 % (11.6-14.8) Platelet Count 208 K/UL (150-450) 192 K/UL (150-450) 182 K/UL (150-450) Mean Platelet Volume 11.0 FL (6.5-10.1) 10.1 FL (6.5-10.1) 9.8 FL (6.5-10.1) Neutrophils (%) (Auto) % (45.0-75.0) % (45.0-75.0) % (45.0-75.0) Lymphocytes (%) (Auto) % (20.0-45.0) % (20.0-45.0) % (20.0-45.0) Monocytes (%) (Auto) % (1.0-10.0) % (1.0-10.0) % (1.0-10.0) Eosinophils (%) (Auto) % (0.0-3.0) % (0.0-3.0) % (0.0-3.0) Basophils (%) (Auto) % (0.0-2.0) % (0.0-2.0) % (0.0-2.0) Differential Total Cells Counted 100 100 100 Neutrophils % (Manual) 90 % (45-75) 91 % (45-75) 86 % (45-75) Lymphocytes % (Manual) 8 % (20-45) 4 % (20-45) 6 % (20-45) Monocytes % (Manual) 2 % (1-10) 3 % (1-10) 6 % (1-10) Eosinophils % (Manual) 0 % (0-3) 1 % (0-3) 2 % (0-3) Basophils % (Manual) 0 % (0-2) 0 % (0-2) 0 % (0-2) Band Neutrophils 0 % (0-8) 1 % (0-8) 0 % (0-8) Platelet Estimate Adequate Adequate Adequate Platelet Morphology Normal Normal Normal Hypochromasia 1+ Anisocytosis 1+ Sodium Level 147 mEQ/L (135-145) 147 mEQ/L (135-145) 146 mEQ/L (135-145) Potassium Level 2.4 mEQ/L (3.4-4.9) 3.3 mEQ/L (3.4-4.9) 3.2 mEQ/L (3.4-4.9) Chloride Level 104 mEQ/L (98-107) 108 mEQ/L (98-107) 108 mEQ/L (98-107) Carbon Dioxide Level 28 mEQ/L (20-30) 25 mEQ/L (20-30) 27 mEQ/L (20-30) Anion Gap 15 (5-15) 14 (5-15) 11 (5-15) Blood Urea Nitrogen 42 mg/dL (7-23) 39 mg/dL (7-23) 35 mg/dL (7-23) Creatinine 1.6 mg/dL (0.5-0.9) 1.6 mg/dL (0.5-0.9) 1.5 mg/dL (0.5-0.9) Estimat Glomerular Filtration Rate mL/min (>60) mL/min (>60) mL/min (>60) Glucose Level 144 mg/dL (74-106) 288 mg/dL (74-106) 104 mg/dL (74-106) Calcium Level 7.5 mg/dL (8.6-10.2) 7.6 mg/dL (8.6-10.2) 7.1 mg/dL (8.6-10.2) Phosphorus Level 2.8 mg/dL (2.5-4.8) 1.5 mg/dL (2.5-4.8) Magnesium Level 1.5 mg/dL (1.7-2.5) 2.7 mg/dL (1.7-2.5) Total Bilirubin 0.4 mg/dL (0.0-1.2) 0.3 mg/dL (0.0-1.2) 0.2 mg/dL (0.0-1.2) Aspartate Amino Transf (AST/SGOT) 28 U/L (5-40) 29 U/L (5-40) 24 U/L (5-40) Alanine Aminotransferase (ALT/SGPT) 31 U/L (3-33) 30 U/L (3-33) 24 U/L (3-33) Alkaline Phosphatase 103 U/L (35-104) 124 U/L (35-104) 118 U/L (35-104) Pro-B-Type Natriuretic Peptide 42154 pg/mL (0-450) Total Protein 5.3 g/dL (6.6-8.7) 5.6 g/dL (6.6-8.7) 5.2 g/dL (6.6-8.7) Albumin 1.6 g/dL (3.5-5.2) 1.8 g/dL (3.5-5.2) 1.6 g/dL (3.5-5.2) Globulin 3.7 g/dL 3.8 g/dL 3.6 g/dL Albumin/Globulin Ratio 0.4 (1.0-2.7) 0.4 (1.0-2.7) 0.4 (1.0-2.7) Red Blood Cell Morphology Normal Normal Objective: GENERAL: A well-developed female, NAD HEENT: Fairly negative. NAD NECK: Supple. No jugular venous distention. LUNGS: moderate breath sounds without rhonchi; Moderate air entry. no rhonchi CARDIAC: S1 and S2. RRR without murmurs, transient tachycardia rubs, or gallops. ABDOMEN: Soft, nontender, and nondistended. no HSM; GT EXTREMITIES: No cyanosis or clubbing. No edema. NEUROLOGICAL: Grossly nonfocal. contracted and withdrawn reviewed and edited; no significant change Accucheck: 119 MARCELO BIRMINGHAM Jul 29, 2016 09:49
[2016-07-29] MEDS: Digoxin 0.5mg/2ml Inj IVP SCH (10:11)
[2016-07-29] MEDS: Pantoprazole Inj IVP SCH (10:11)
[2016-07-29] MEDS: Ascorbic Acid 500mg tab GT SCH (10:12)
[2016-07-29] MEDS: Aspirin Baby 81mg GT SCH (10:12)
[2016-07-29] MEDS: Carvedilol 12.5mg tab GT SCH (10:12)
[2016-07-29] MEDS: Fluconazole 100mg tab GT SCH (10:12)
[2016-07-29 12:00] VITALS: BP 113/53
[2016-07-29] MEDS ORDERED: KCl 10% 40mEq/30ml liquid NG ONE (12:30)
[2016-07-29] MEDS ORDERED: Acetaminophen 650mg/20.3ml NG PRN (13:00)
--- NOTE | 2016-07-29 14:41 | General Progress Note ---
Assessment/Plan Problem List: (1) Hypothyroid ICD Codes: E03.9 - Hypothyroid SNOMED: 86895038 (2) Septic shock ICD Codes: A41.9 - Sepsis, unspecified organism; R65.21 - Severe sepsis with septic shock SNOMED: 90798683 (3) Acute renal failure ICD Codes: N17.9 - Acute kidney failure, unspecified SNOMED: 87102071 Qualifiers: Qualified Codes: N17.0 - Acute kidney failure with tubular necrosis (4) Sepsis ICD Codes: A41.9 - Sepsis, unspecified organism SNOMED: 14153033 (5) Altered mental status ICD Codes: R41.82 - Altered mental status, unspecified SNOMED: 337311054 Qualifiers: Qualified Codes: R41.0 - Disorientation, unspecified (6) Acute delirium ICD Codes: R41.0 - Acute delirium SNOMED: 8827474 (7) UTI (lower urinary tract infection) ICD Codes: N39.0 - UTI (lower urinary tract infection) SNOMED: 8150862 Status: stable, unchanged Assessment/Plan monitor cxr iv abx per id hypotonic ivf replace lytes resp rx gt feed repeat labs in am replace k and phos pulmonary status remains tenuous dc planning next 24-48hrs if stable Subjective ROS Limited/Unobtainable: Yes Constitutional: Reports: malaise, weakness HEENT: Reports: no symptoms Cardiovascular: Reports: no symptoms Respiratory: Reports: cough, shortness of breath Gastrointestinal/Abdominal: Reports: no symptoms Genitourinary: Reports: no symptoms Neurologic/Psychiatric: Reports: pre-existing deficit Endocrine: Reports: no symptoms Hematologic/Lymphatic: Reports: anemia Allergies: Coded Allergies: No Known Allergies (Unverified , 04/18/12) All Systems: reviewed and negative except above Subjective tolerating feeds no vomiting intermittent tachycardia as high as 125 no afib per rele tech worsening renal insuff and hypernatremia noted. now on nasal cannula off lasix. d/w rn Objective Last 24 Hour Vital Signs Date Time Temp Pulse Resp B/P Pulse Ox O2 Delivery O2 Flow Rate FiO2 07/29/16 12:00 98.9 103 20 113/53 98 Nasal Cannula 3.0 07/29/16 10:12 125 131/76 07/29/16 10:11 125 07/29/16 08:00 98.6 123 21 122/81 98 Nasal Cannula 2.0 07/29/16 04:00 89 07/29/16 00:00 85 07/29/16 00:00 98.4 90 20 106/63 98 Nasal Cannula 2.0 07/28/16 21:00 99 132/69 07/28/16 20:00 98.2 99 20 132/69 95 Nasal Cannula 2.0 07/28/16 20:00 100 07/28/16 19:00 95 Nasal Cannula 2.0 28 07/28/16 19:00 Nasal Cannula 2.0 28 07/28/16 16:00 98.4 79 18 90/51 99 Nasal Cannula 2.0 07/28/16 16:00 97 Intake and Output 07/28/16 07/29/16 19:00 07:00 Intake Total 1530 ml 1300 ml Output Total 350 ml 350 ml Balance 1180 ml 950 ml Free Water 100 ml 100 ml IV Total 800 ml 800 ml Tube Feeding 630 ml 400 ml Output Urine Total 350 ml 350 ml # Bowel Movements 3 1 Laboratory Tests 07/29/16 03:45: White Blood Count 19.7H, Red Blood Count 2.78L, Hemoglobin 8.3L, Hematocrit 25.9L, Mean Corpuscular Volume 93, Mean Corpuscular Hemoglobin 29.8, Mean Corpuscular Hemoglobin Concent 32.1, Red Cell Distribution Width 14.5, Platelet Count 182, Mean Platelet Volume 9.8, Neutrophils (%) (Auto) , Lymphocytes (%) ( Auto) , Monocytes (%) (Auto) , Eosinophils (%) (Auto) , Basophils (%) (Auto) , Differential Total Cells Counted 100, Neutrophils % (Manual) 86H, Lymphocytes % (Manual) 6L, Monocytes % (Manual) 6, Eosinophils % (Manual) 2, Basophils % ( Manual) 0, Band Neutrophils 0, Platelet Estimate Adequate, Platelet Morphology Normal, Red Blood Cell Morphology Normal, Sodium Level 146H, Potassium Level 3.2L, Chloride Level 108H, Carbon Dioxide Level 27, Anion Gap 11, Blood Urea Nitrogen 35H, Creatinine 1.5H, Estimat Glomerular Filtration Rate , Glucose Level 104#, Calcium Level 7.1L, Phosphorus Level 1.5L, Magnesium Level 2.7H, Total Bilirubin 0.2, Aspartate Amino Transf (AST/SGOT) 24, Alanine Aminotransferase (ALT/SGPT) 24, Alkaline Phosphatase 118H, Pro-B-Type Natriuretic Peptide 18627R, Total Protein 5.2L, Albumin 1.6L, Globulin 3.6, Albumin/Globulin Ratio 0.4L Height (Feet): 5 Height (Inches): 1.00 Weight (Pounds): 101 Objective General Appearance: WD/WN, alert, confused Neck: supple Cardiovascular: normal rate, regular rhythm Respiratory/Chest: few wheezes Abdomen: normal bowel sounds, non tender, soft, no organomegaly Edema: no edema noted Arm (L), no edema noted Arm (R), no edema noted Leg (L), no edema noted Leg (R), no edema noted Pedal (L), no edema noted Pedal (R), no edema noted Generalized Neurologic: disoriented Skin: normal pigmentation, warm/dry HA FRANCIS Jul 29, 2016 14:41
[2016-07-29 16:00] VITALS: BP 109/57
[2016-07-29 20:00] VITALS: BP 127/64
[2016-07-29] MEDS ORDERED: Carvedilol 12.5mg tab GT SCH (21:00)
[2016-07-29] MEDS ORDERED: Atorvastatin 20mg tab GT SCH (21:00)
[2016-07-30 00:33] VITALS: BP 107/52
--- NOTE | 2016-07-30 02:59 | Progress Note ---
DATE: 07/29/2016 CARDIOLOGY PROGRESS NOTE SUBJECTIVE: The patient is tolerating feedings by G-tube. The patient has had electrolyte abnormalities that are being replaced. The patient continues to require IV fluids for correction of dehydration and hypernatremia. The patient continues to have episodes of tachyarrhythmias. The patient remains confused and withdrawn. OBJECTIVE: VITAL SIGNS: Blood pressure 127/64, pulse 99, respirations 20, and afebrile. LUNGS: Bilateral breath sounds with rhonchi. HEART: Regular rhythm. Rapid rate. Normal S1 and S2. ABDOMEN: Soft. G-tube intact. EXTREMITIES: With dependent edema. LABORATORY DATA: White count 19.7 and hemoglobin 8.3. Magnesium 2.7. Phosphorus 1.5 Pro-natriuretic peptide 22,000. Sodium 146, potassium 3.2, BUN 35, and creatinine 1.5. IMPRESSION: 1. Acute on chronic systolic and diastolic congestive heart failure. 2. Hypophosphatemia. 3. Severe protein-calorie malnutrition. 4. Dysphagia, status post gastrostomy tube. 5. Dehydration. 6. Hypernatremia. 7. Urinary tract infection with sepsis. 8. Paroxysmal atrial fibrillation. PLAN: 1. free water replacement. 2. Protein and nutrition by G-tube. 3. Continue beta-crystal up titrate dosing. 4. Reassess digoxin therapy. 5. Antimicrobials per Infectious Disease staffing consultant. Yohan Corbett M.D. DR: HERVE JOB#: [id number] CC:
[2016-07-30 04:33] VITALS: BP 107/61
[2016-07-30] MEDS: NovoLOG Insulin Flexpen SUBQ SCH ×3 (06:00→11:41)
[2016-07-30 06:46] LABS: MEAN CORPUSCULAR HEMOGLOBIN 31.2 PG (27.0-31.0); MEAN CORPUSCULAR HGB CONC 33.4 G/DL (32.0-36.0); MEAN CORPUSCULAR VOLUME 93 FL (80-99); MEAN PLATELET VOLUME 9.5 FL (6.5-10.1); PLATELET COUNT 214 K/UL (150-450); RED BLOOD COUNT 2.78 M/UL (4.20-5.40); RED CELL DISTRIBUTION WIDTH 14.6 % (11.6-14.8); WHITE BLOOD COUNT 19.9 K/UL (4.8-10.8)
[2016-07-30 07:29] LABS: CHLORIDE 111 mEQ/L (98-107); POTASSIUM 3.5 mEQ/L (3.4-4.9); SODIUM 150 mEQ/L (135-145)
[2016-07-30 07:57] LABS: ALANINE AMINOTRANSFERASE 22 U/L (3-33); ALBUMIN/GLOBULIN RATIO 0.5 (1.0-2.7); ANION GAP 14 (5-15); ASPARTATE AMINO TRANSFERASE 24 U/L (5-40); CALCIUM 7.5 mg/dL (8.6-10.2); CARBON DIOXIDE 25 mEQ/L (20-30); CREATININE 1.7 mg/dL (0.5-0.9); HEMOLYSIS 2; TOTAL PROTEIN 5.4 g/dL (6.6-8.7)
--- NOTE | 2016-07-30 08:21 | Critical Care Progress Note ---
Assessment/Plan Assessment/Plan IMPRESSION: Respiratory failure, resolved, sepsis, shock, hypothermia, hypotension-recurrent, history of dementia, history congestive heart failure, history of coronary artery disease, history of hypertension, possible acute on chronic renal failure, t lactic acidemia, protein-calorie malnutrition, and profound leukocytosis-resolved; fevers PLAN pulmonary care as is antibiotic management noted fluid management noted chest xr with hypoventilatory changes; monitor exam noted and edited care reviewed in detail monitor respiratory status monitor for aspiration follow up closely for change transition to SNF when cleared and stable still labile and monitor for aspiration medications/laboratory data/nursing notes reviewed in detail note reviewed and edited care discussed with RN and RT Critical Care - Subjective Interval Events: care noted and reviewed ROS Limited/Unobtainable: Yes Condition: stable EKG Rhythm: Sinus Rhythm Residuals: minimal Tube Feeding Tolerated: yes I&O: Intake and Output 07/29/16 07/30/16 19:00 07:00 Intake Total 440 ml 490 ml Output Total 480 ml 900 ml Balance -40 ml -410 ml Intake Oral 80 ml Free Water 120 ml 50 ml Tube Feeding 320 ml 360 ml Output Urine Total 480 ml 900 ml # Bowel Movements 1 7 Critical Care - Objective ET-Tube: 8.0 ET Position: 24 Last 24 Hour Vital Signs Date Time Temp Pulse Resp B/P Pulse Ox O2 Delivery O2 Flow Rate FiO2 07/30/16 04:33 98.2 97 18 107/61 100 Nasal Cannula 2.0 07/30/16 04:00 95 07/30/16 00:33 97.0 85 20 107/52 100 Nasal Cannula 2.0 07/30/16 00:00 92 07/29/16 21:00 99 127/64 07/29/16 20:00 98 07/29/16 20:00 Nasal Cannula 2.0 28 07/29/16 20:00 97.6 99 20 127/64 97 Nasal Cannula 2.0 07/29/16 20:00 97 Nasal Cannula 2.0 28 07/29/16 16:00 97.8 86 19 109/57 98 Room Air 07/29/16 16:00 92 07/29/16 13:14 86 07/29/16 12:00 98.9 103 20 113/53 98 Nasal Cannula 3.0 07/29/16 10:12 125 131/76 07/29/16 10:11 125 Objective: GENERAL: A well-developed female, NAD HEENT: Fairly negative. NAD NECK: Supple. No jugular venous distention. LUNGS: moderate breath sounds without rhonchi; Moderate air entry. no rhonchi CARDIAC: S1 and S2. RRR without murmurs, transient tachycardia rubs, or gallops. ABDOMEN: Soft, nontender, and nondistended. no HSM; GT EXTREMITIES: No cyanosis or clubbing. No edema. NEUROLOGICAL: Grossly nonfocal. contracted and withdrawn reviewed and edited; no significant change Accucheck: 106 MARCELO BIRMINGHAM Jul 30, 2016 08:21
--- NOTE | 2016-07-30 08:51 | General Progress Note ---
Assessment/Plan Problem List: (1) Hypothyroid ICD Codes: E03.9 - Hypothyroid SNOMED: 81464898 (2) Septic shock ICD Codes: A41.9 - Sepsis, unspecified organism; R65.21 - Severe sepsis with septic shock SNOMED: 71385549 (3) Acute renal failure ICD Codes: N17.9 - Acute kidney failure, unspecified SNOMED: 29654037 Qualifiers: Qualified Codes: N17.0 - Acute kidney failure with tubular necrosis (4) Sepsis ICD Codes: A41.9 - Sepsis, unspecified organism SNOMED: 83493348 (5) Altered mental status ICD Codes: R41.82 - Altered mental status, unspecified SNOMED: 765659915 Qualifiers: Qualified Codes: R41.0 - Disorientation, unspecified (6) Acute delirium ICD Codes: R41.0 - Acute delirium SNOMED: 7882505 (7) UTI (lower urinary tract infection) ICD Codes: N39.0 - UTI (lower urinary tract infection) SNOMED: 2536956 Status: stable, progressing Assessment/Plan monitor cxr iv abx per id replace lytes increase water flushes resp rx gt feed repeat labs in am pulmonary status remains tenuous dc planning next 24-48hrs if stable Subjective ROS Limited/Unobtainable: Yes Constitutional: Reports: malaise, weakness HEENT: Reports: no symptoms Cardiovascular: Reports: no symptoms Respiratory: Reports: cough, shortness of breath, sputum Gastrointestinal/Abdominal: Reports: difficulty swallowing Genitourinary: Reports: no symptoms Neurologic/Psychiatric: Reports: pre-existing deficit Endocrine: Reports: no symptoms Hematologic/Lymphatic: Reports: anemia Allergies: Coded Allergies: No Known Allergies (Unverified , 04/18/12) All Systems: reviewed and negative except above Subjective tolerating feeds no vomiting remains sob, wbc still high. sodium elevated no afib per rele tech worsening renal insuff and hypernatremia noted. now on nasal cannula off lasix. d/w rn Objective Last 24 Hour Vital Signs Date Time Temp Pulse Resp B/P Pulse Ox O2 Delivery O2 Flow Rate FiO2 07/30/16 04:33 98.2 97 18 107/61 100 Nasal Cannula 2.0 07/30/16 04:00 95 07/30/16 00:33 97.0 85 20 107/52 100 Nasal Cannula 2.0 07/30/16 00:00 92 07/29/16 21:00 99 127/64 07/29/16 20:00 98 07/29/16 20:00 Nasal Cannula 2.0 28 07/29/16 20:00 97.6 99 20 127/64 97 Nasal Cannula 2.0 07/29/16 20:00 97 Nasal Cannula 2.0 28 07/29/16 16:00 97.8 86 19 109/57 98 Room Air 07/29/16 16:00 92 07/29/16 13:14 86 07/29/16 12:00 98.9 103 20 113/53 98 Nasal Cannula 3.0 07/29/16 10:12 125 131/76 07/29/16 10:11 125 Intake and Output 07/29/16 07/30/16 19:00 07:00 Intake Total 440 ml 490 ml Output Total 480 ml 900 ml Balance -40 ml -410 ml Intake Oral 80 ml Free Water 120 ml 50 ml Tube Feeding 320 ml 360 ml Output Urine Total 480 ml 900 ml # Bowel Movements 1 7 Laboratory Tests 07/30/16 04:00: White Blood Count 19.9H, Red Blood Count 2.78L, Hemoglobin 8.7L, Hematocrit 26.0L, Mean Corpuscular Volume 93, Mean Corpuscular Hemoglobin 31.2H, Mean Corpuscular Hemoglobin Concent 33.4, Red Cell Distribution Width 14.6, Platelet Count 214, Mean Platelet Volume 9.5, Neutrophils (%) (Auto) , Lymphocytes (%) ( Auto) , Monocytes (%) (Auto) , Eosinophils (%) (Auto) , Basophils (%) (Auto) , Neutrophils % (Manual) [Pending], Lymphocytes % (Manual) [Pending], Platelet Estimate [Pending], Platelet Morphology [Pending], Sodium Level 150H, Potassium Level 3.5, Chloride Level 111H, Carbon Dioxide Level 25, Anion Gap 14, Blood Urea Nitrogen 38H, Creatinine 1.7H, Estimat Glomerular Filtration Rate , Glucose Level 97, Calcium Level 7.5L, Total Bilirubin 0.3, Aspartate Amino Transf (AST/SGOT) 24, Alanine Aminotransferase (ALT/SGPT) 22, Alkaline Phosphatase 99, Total Protein 5.4L, Albumin 1.8L, Globulin 3.6, Albumin/ Globulin Ratio 0.5L Height (Feet): 5 Height (Inches): 1.00 Weight (Pounds): 101 Objective General Appearance: WD/WN, alert, confused Neck: supple Cardiovascular: normal rate, regular rhythm Respiratory/Chest: few wheezes Abdomen: normal bowel sounds, non tender, soft, no organomegaly Edema: no edema noted Arm (L), no edema noted Arm (R), no edema noted Leg (L), no edema noted Leg (R), no edema noted Pedal (L), no edema noted Pedal (R), no edema noted Generalized Neurologic: disoriented Skin: normal pigmentation, warm/dry HA FRANCIS Jul 30, 2016 08:51
[2016-07-30 08:57] LABS: ANISOCYTOSIS 1+; BAND NEUTROPHILS % (MANUAL) 0 % (0-8); BASOPHILS % (MANUAL) 0 % (0-2); EOSINOPHILS % (MANUAL) 0 % (0-3); HYPOCHROMASIA 3+; LYMPHOCYTES % (MANUAL) 7 % (20-45); NEUTROPHILS % (MANUAL) 92 % (45-75); PLATELET ESTIMATE ADEQUATE; PLATELET MORPHOLOGY NORMAL; TOTAL CELLS COUNTED 100
[2016-07-30 09:00] VITALS: BP 112/61
[2016-07-30] MEDS ORDERED: Fluconazole 100mg tab GT SCH (09:00)
[2016-07-30] MEDS ORDERED: Carvedilol 25mg Tab GT SCH (09:00)
[2016-07-30] MEDS ORDERED: Aspirin Baby 81mg GT SCH (09:00)
[2016-07-30] MEDS ORDERED: Digoxin 0.5mg/2ml Inj IVP SCH (09:00)
[2016-07-30] MEDS ORDERED: Ascorbic Acid 500mg tab GT SCH (09:00)
[2016-07-30] MEDS ORDERED: Pantoprazole Inj IVP SCH (09:00)
[2016-07-30] MEDS ORDERED: Phospha 250 Neutral tab GT SCH ×2 (09:00)
--- NOTE | 2016-07-30 09:41 | Infectious Diseases Prog Note ---
Assessment/Plan Assessment/Plan A 1. Persistent leukocytosis 2. Fungal UTI 4. Anemia 5. Dysphagia s/p GT placement 6. Atelectasis P 1. Continue Fluconazole X 1 day Subjective ROS Limited/Unobtainable: Yes Respiratory: Reports: productive cough Allergies: Coded Allergies: No Known Allergies (Unverified , 04/18/12) Objective Vital Signs Last 24 Hour Vital Signs Date Time Temp Pulse Resp B/P Pulse Ox O2 Delivery O2 Flow Rate FiO2 07/30/16 09:19 93 112/61 07/30/16 09:00 96.5 93 23 112/61 97 07/30/16 04:33 98.2 97 18 107/61 100 Nasal Cannula 2.0 07/30/16 04:00 95 07/30/16 00:33 97.0 85 20 107/52 100 Nasal Cannula 2.0 07/30/16 00:00 92 07/29/16 21:00 99 127/64 07/29/16 20:00 98 07/29/16 20:00 Nasal Cannula 2.0 28 07/29/16 20:00 97.6 99 20 127/64 97 Nasal Cannula 2.0 07/29/16 20:00 97 Nasal Cannula 2.0 28 07/29/16 16:00 97.8 86 19 109/57 98 Room Air 07/29/16 16:00 92 07/29/16 13:14 86 07/29/16 12:00 98.9 103 20 113/53 98 Nasal Cannula 3.0 07/29/16 10:12 125 131/76 07/29/16 10:11 125 Height (Feet): 5 Height (Inches): 1.00 Weight (Pounds): 101 HEENT: mucous membranes moist Respiratory/Chest: other - few rhonchi Cardiovascular: normal rate, other - RIJ central line Extremities: no edema Neurologic/Psychiatric: aphasia Laboratory Tests Test 07/30/16 04:00 White Blood Count 19.9 K/UL (4.8-10.8) H Red Blood Count 2.78 M/UL (4.20-5.40) L Hemoglobin 8.7 G/DL (12.0-16.0) L Hematocrit 26.0 % (37.0-47.0) L Mean Corpuscular Volume 93 FL (80-99) Mean Corpuscular Hemoglobin 31.2 PG (27.0-31.0) H Mean Corpuscular Hemoglobin Concent 33.4 G/DL (32.0-36.0) Red Cell Distribution Width 14.6 % (11.6-14.8) Platelet Count 214 K/UL (150-450) Mean Platelet Volume 9.5 FL (6.5-10.1) Neutrophils (%) (Auto) % (45.0-75.0) Lymphocytes (%) (Auto) % (20.0-45.0) Monocytes (%) (Auto) % (1.0-10.0) Eosinophils (%) (Auto) % (0.0-3.0) Basophils (%) (Auto) % (0.0-2.0) Differential Total Cells Counted 100 Neutrophils % (Manual) 92 % (45-75) H Lymphocytes % (Manual) 7 % (20-45) L Monocytes % (Manual) 1 % (1-10) Eosinophils % (Manual) 0 % (0-3) Basophils % (Manual) 0 % (0-2) Band Neutrophils 0 % (0-8) Platelet Estimate Adequate Platelet Morphology Normal Hypochromasia 3+ Anisocytosis 1+ Sodium Level 150 mEQ/L (135-145) H Potassium Level 3.5 mEQ/L (3.4-4.9) Chloride Level 111 mEQ/L (98-107) H Carbon Dioxide Level 25 mEQ/L (20-30) Anion Gap 14 (5-15) Blood Urea Nitrogen 38 mg/dL (7-23) H Creatinine 1.7 mg/dL (0.5-0.9) H Estimat Glomerular Filtration Rate mL/min (>60) Glucose Level 97 mg/dL (74-106) Calcium Level 7.5 mg/dL (8.6-10.2) L Total Bilirubin 0.3 mg/dL (0.0-1.2) Aspartate Amino Transf (AST/SGOT) 24 U/L (5-40) Alanine Aminotransferase (ALT/SGPT) 22 U/L (3-33) Alkaline Phosphatase 99 U/L (35-104) Total Protein 5.4 g/dL (6.6-8.7) L Albumin 1.8 g/dL (3.5-5.2) L Globulin 3.6 g/dL Albumin/Globulin Ratio 0.5 (1.0-2.7) L Current Medications Medications (Trade) Dose Ordered Sig/Trip Route PRN Reason Start Time Stop Time Status Last Admin Dose Admin Acetaminophen (Tylenol) 650 mg Q4H PRN NG Prn Headache/Temp > 101 07/29/16 13:00 08/28/16 12:59 Ascorbic Acid (Vitamin C) 500 mg DAILY GT 07/30/16 09:00 08/29/16 08:59 07/30/16 09:19 Aspirin (ASA) 81 mg DAILY GT 07/30/16 09:00 08/29/16 08:59 07/30/16 09:19 Atorvastatin Calcium (Lipitor) 20 mg BEDTIME GT 07/29/16 21:00 08/28/16 20:59 07/29/16 22:09 Carvedilol (Coreg) 25 mg EVERY 12 HOURS GT 07/30/16 09:00 08/29/16 08:59 07/30/16 09:19 Dextrose (Dextrose 50%) STAT PRN IV Hypoglycemia 07/29/16 12:30 08/28/16 12:29 Fluconazole (Diflucan) 100 mg DAILY GT 07/30/16 09:00 08/06/16 08:59 07/30/16 09:19 Insulin Aspart (NovoLOG) Q6HR SUBQ 07/29/16 18:00 08/28/16 17:59 07/29/16 17:29 Levothyroxine Sodium (Synthroid) 100 mcg DAILY IV 07/30/16 09:00 08/29/16 08:59 07/30/16 09:19 Pantoprazole (Protonix) 40 mg DAILY IVP 07/30/16 09:00 08/29/16 08:59 07/30/16 09:20 Phosphorus (Phospha 250 Neutral) 500 mg DAILY GT 07/30/16 09:00 08/29/16 08:59 07/30/16 09:19 JAMEEL TRIPATHI Jul 30, 2016 09:41
[2016-07-30 12:00] VITALS: BP 123/75
--- NOTE | 2016-07-30 12:49 | Diagnostic Imaging Report ---
Indication: COUGH Technique: One view of the chest Comparison: 07/25/2016 Findings: There are bilateral pleural effusions and bilateral interstitial and alveolar congestion again demonstrated. Somewhat better inspiration on the current study. Pleural fluid may have decreased somewhat. Right jugular central venous catheter is again demonstrated. Heart size is normal. Impression: Bilateral pleural effusions, possibly somewhat improved since 07/25/2016 Bilateral interstitial and alveolar congestive changes, stable Other stable findings as noted
[2016-07-30 16:00] VITALS: BP 117/67
--- NOTE | 2016-07-30 23:00 | Progress Note ---
DATE: 07/30/2015 CARDIOLOGY PROGRESS NOTE SUBJECTIVE: The patient's condition remains tenuous. Respiratory status is unstable and she continues to have abnormal vital signs and electrolyte parameters, monitored rhythm sinus tachycardia with atrial ectopics. OBJECTIVE: VITAL SIGNS: Blood pressure 123/75, heart rate 83, respiratory rate 19, and temperature 99.9. HEENT: Temporal wasting. LUNGS: Bilateral rhonchi. HEART: Regular rhythm. Rapid rate. Normal S1 and S2. ABDOMEN: Soft. G-tube intact. EXTREMITIES: Trace edema. LABORATORY DATA: White count 19.9, hemoglobin 8.7, and platelet count 214,000 .sodium 150 potassium 3.5, bicarbonate 25, chloride 111, BUN 38, and creatinine 1.7. Albumin 1.8. IMPRESSION: 1. Sepsis. 2. Leukocytosis. 3. Paroxysmal atrial fibrillation. 4. Acute and chronic diastolic congestive heart failure. 5. Ischemic cardiomyopathy. 6. Recurring urinary tract infections most polymicrobial aspiration. 7. Severe protein-calorie malnutrition. 8. Dehydration. 9. Hypernatremia. 10. Hyperchloremia. 11. Acute on chronic renal failure. PLAN: 1. Hypotonic fluid hydration. 2. Antimicrobials per Infectious Disease design center consultant. 3. Aspiration precautions. 4. Nutrition by feeding tube. 5. DVT and stress ulcer prophylaxis. 6. Cautious use of beta-crystal if tolerated by blood pressure parameters. Charleen Osborn JOB#: [id number] CC:
--- NOTE | 2016-07-31 17:52 | Discharge Summary ---
Discharge Summary Hospital Course Date of Admission Jun 27, 2016 at 14:41 Date of Discharge Jul 30, 2016 at 18:19 Admitting Diagnosis hypoxia/hypotension HPI Sarah Capellan is a 85 year old female who was admitted on Jun 27, 2016 at 14:41 for resp distress Hospital Course [id number] Discharge Discharge Disposition Patient Discharge Diagnoses: Iram Biggs NP Jul 31, 2016 17:52
--- NOTE | 2016-08-01 00:09 | Discharge Summary 2 SIG ---
DATE OF ADMISSION: 06/27/2016 DATE OF DISCHARGE: 07/30/2016 COISNSULTANTS: 1. Yohan Corbett M.D. 2. Alix Torres M.D. 3. Brian Sidhu M.D. 4. Fabiano Parra M.D. 5. Morenita Christy M.D. 6. Nick Pope M.D. BRIEF SUMMARY: The patient is an 85-year-old female, who has a history of ischemic cardiomyopathy, hypothyroidism, and dementia, [facility] from [facility] secondary to shortness of breath. On evaluation at ED, the patient was hypotensive and was placed on pressors. She had a POLST that states DNR. She was short of breath and was placed on BiPAP. Laboratories showed acute renal failure with evidence of pneumonia and urine infection. She was pancultured and was started on broad-spectrum IV antibiotics and was placed on pressors and was admitted to ICU. She was followed by Cardiology and Pulmonary service and was given Zosyn by Infectious Disease specialist. Urine culture showed growth of Pseudomonas E. coli. She was given IV steroids. Renal function improved. She failed swallow evaluation. Unable to put a NG tube at bedside. Dr. Christy was consulted and attempted EGD with PEG tube placement, however, the patient has very large hiatal hernia, majority was in the chest cavity, unable to trace gastrostomy tube due to lack of appropriate landmarks. NG tube was placed in the gastric cavity by endoscopic visualization. The patient will eventually need open surgery for G-tube placement. On 07/20/2016, underwent placement of [place]ay gastrostomy tube by Dr. Pope. The feedings were started at a low rate. She continued to have leukocytosis and remained guarded. She eventually on 07/31/2016. FINAL DIAGNOSES: 1. Septic shock. 2. Acute respiratory failure requiring bilevel positive airway pressure, resolved. 3. Acute renal failure. 4. Hypothyroidism. 5. Acute delirium. 6. Urinary tract infection. 7. Altered mental status/acute metabolic encephalopathy. 8. Paroxysmal atrial fibrillation. 9. Acute on chronic diastolic congestive heart failure. 10. Ischemic cardiomyopathy. 11. Severe protein calorie malnutrition. 12. Dehydration. 13. Hypernatremia. 14. Hyperkalemia. 15. Peripheral leukocytosis. 16. Dysphagia. 17. Fungal urinary tract infection. 18. Anemia. Dimitri Gore M.D. I have been assigned to dictate discharge summary on this account and I was not involved in the patient's management. Iram Biggs N.P. DR: Erum JOB#: [id number] CC: [facility]
--- NOTE | 2016-08-04 14:10 | Diagnostic Imaging Report ---
Indications: COUGH Technique: Portable AP chest Findings: Comparison: 07/18/16 Diffuse bilateral interstitial infiltrates, probable bibasal pleural effusions unchanged. Central venous catheter remains in place. No new abnormality identified. IMPRESSION: No change from 4 days prior
--- NOTE | 2016-08-04 14:18 | Diagnostic Imaging Report ---
Indication: Cough Comparison: July 16, 2016 A single view chest radiograph was obtained. Findings: There is evidence of mild interstitial edema. Hazy basilar opacities likely pleural effusions. Right jugular line is unchanged in position. Impression: Suspected mild interstitial edema and bilateral pleural effusions. No significant change
== END 2016-07-30 18:19 | disposition expired | DRG 853 ==
LOC: EDBD 13:37 → EDBEDREQSVC 14:11 → EMR 14:31 → ICU 14:41 → EDBEDREQ 14:49 → 2E 07-02 15:01 → 4E 07-09 22:33 → ICU 07-15 00:58 → 2W 07-17 01:12 → 2E 07-29 12:07
PROC: 05HM33Z Insertion of Infusion Device into Right Internal Jugular Vein, Percutaneous Approach (ICD-10-PCS; principal; 2016-06-27)
PROC: 0DJ08ZZ Inspection of Upper Intestinal Tract, Via Natural or Artificial Opening Endoscopic (ICD-10-PCS; 2016-07-07)
PROC: 0DH60UZ Insertion of Feeding Device into Stomach, Open Approach (ICD-10-PCS; 2016-07-20)
DX: A41.9 Sepsis, unspecified organism (principal); R65.21 Severe sepsis with septic shock; J96.01 Acute respiratory failure with hypoxia; E43 Unspecified severe protein-calorie malnutrition; I50.33 Acute on chronic diastolic (congestive) heart failure; J18.9 Pneumonia, unspecified organism; G93.41 Metabolic encephalopathy; N17.9 Acute kidney failure, unspecified; E87.0 Hyperosmolality and hypernatremia; N39.0 Urinary tract infection, site not specified; Z68.1 Body mass index [BMI] 19.9 or less, adult; J98.11 Atelectasis; E86.0 Dehydration; E83.51 Hypocalcemia; E87.6 Hypokalemia; K44.9 Diaphragmatic hernia without obstruction or gangrene; Z66 Do not resuscitate; I25.5 Ischemic cardiomyopathy; I25.10 Atherosclerotic heart disease of native coronary artery without angina pectoris; E03.9 Hypothyroidism, unspecified; F03.90 Unspecified dementia, unspecified severity, without behavioral disturbance, psychotic disturbance, mood disturbance, and anxiety; B96.20 Unspecified Escherichia coli [E. coli] as the cause of diseases classified elsewhere; B96.5 Pseudomonas (aeruginosa) (mallei) (pseudomallei) as the cause of diseases classified elsewhere; I11.0 Hypertensive heart disease with heart failure; I48.0 Paroxysmal atrial fibrillation; E87.5 Hyperkalemia; R13.10 Dysphagia, unspecified; D64.9 Anemia, unspecified; I25.2 Old myocardial infarction; E83.39 Other disorders of phosphorus metabolism; E83.42 Hypomagnesemia
CPT/HCPCS: 36415; 36600; 71010; 74000; 76775; 80048; 80053; 80202; 81001; 81003; 82533; 82550; 82553; 82570; 82803; 82962; 83605; 83735; 83880; 83935; 84100; 84300; 84443; 84484; 84550; 85007; 85025; 85610; 85730; 86850; 86900; 86901; 86920; 87040; 87070; 87081; 87086; 87181; 87205; 87493; 93005; 93306; 93970; 94002; 94003; 94150; 94660; 94664; 94760; C9399; J0712; J1815; J2250; J2370